=== PATIENT | male | born 1955 | race Caucasian/White ===

== ENCOUNTER 2022-10-17 13:08 | Emergency (ER) | payer OTHER, MEDICAID ==
[~2022-10-17] VITALS: Ht 170.2 cm; Wt 81.8 kg
[2022-10-17 13:24] VITALS: BP 194/79
[2022-10-17 14:02] LABS: Basophils # (auto) 0.1 10 ^3/uL (0-0.2); Basophils % (auto) 0.8 % (0.0-2.0); Eosinophils # (auto) 0.3 10 ^3/uL (0-0.8); Eosinophils % (auto) 3.6 % (0.0-7.0); Hematocrit 34.7 % (41.0-53.0); Hemoglobin 11.6 g/dL (13.5-17.5); Lymphocytes # (auto) 0.8 10 ^3/uL (0.4-5.4); Lymphocytes % (auto) 10.7 % (10.0-50.0); Mean Corpuscular Hemoglobin 27.5 pg (28.0-32.0); Mean Corpuscular Hgb Conc. 33.5 g/dL (32.0-36.0); Mean Corpuscular Volume 82.2 fL (80.0-100.0); Monocytes # (auto) 0.5 10 ^3/uL (0-1.3); Monocytes % (auto) 6.7 % (0.0-12.0); Neutrophils # (auto) 5.9 10 ^3/uL (1.6-8.6); Neutrophils % (auto) 78.2 % (37.0-80.0); Red Blood Cells 4.22 10^6/uL (4.5-5.90); Red Cell Distribution Width 15.5 % (11.8-14.3); White Blood Cell 7.5 10^3/uL (4.4-10.8)
[2022-10-17 14:20] LABS: Albumin 3.9 g/dL (3.4-5.0); BUN/Creatinine Ratio 8.4; Calcium 8.6 mg/dL (8.5-10.1)
[2022-10-17 14:23] LABS: Bilirubin, Total 0.6 mg/dL (0.2-1.0); Total Protein 7.5 g/dL (6.4-8.2)
== END 2022-10-17 15:49 | disposition left against medical advice (07) ==
LOC: ER 13:08
DX: R07.89 Other chest pain (principal); F41.9 Anxiety disorder, unspecified; F17.210 Nicotine dependence, cigarettes, uncomplicated; F12.10 Cannabis abuse, uncomplicated
CPT/HCPCS: 36415; 71046; 80053; 84484; 85025; 93005

== ENCOUNTER 2023-09-06 06:36 | Inpatient (IN) | payer OTHER, MEDICAID ==
[~2023-09-06] VITALS: Ht 170.2 cm; Wt 85.4 kg
[2023-09-06] MEDS ORDERED: cefTRIAXone 1GM/50ML D5W 50 ML IV ONE ×2 (08:30→10:30)
[2023-09-06] MEDS ORDERED: CLINDAMYCIN 600MG IV 50 ML IV ONE (08:30)
[2023-09-06 10:08] LABS: Basophils # (auto) 0.1 10 ^3/uL (0-0.2); Basophils % (auto) 0.5 % (0.0-2.0); Eosinophils # (auto) 0.3 10 ^3/uL (0-0.8); Eosinophils % (auto) 3.1 % (0.0-7.0); Hematocrit 35.2 % (41.0-53.0); Hemoglobin 11.4 g/dL (13.5-17.5); Lymphocytes # (auto) 0.7 10 ^3/uL (0.4-5.4); Lymphocytes % (auto) 6.1 % (10.0-50.0); Mean Corpuscular Hemoglobin 28.7 pg (28.0-32.0); Mean Corpuscular Hgb Conc. 32.4 g/dL (32.0-36.0); Mean Corpuscular Volume 88.7 fL (80.0-100.0); Monocytes # (auto) 0.9 10 ^3/uL (0-1.3); Monocytes % (auto) 8.2 % (0.0-12.0); Neutrophils % (auto) 82.1 % (37.0-80.0); Red Blood Cells 3.97 10^6/uL (4.5-5.90); Red Cell Distribution Width 16.4 % (11.8-14.3)
[2023-09-06 10:09] LABS: Albumin 4.2 g/dL (3.2-4.8); Alkaline Phosphatase 76 U/L (46-116); Anion Gap 10 (5-15); Aspartate Aminotransferase 12 U/L (13-40); BUN/Creatinine Ratio 8.4 (10.0-20.0); Bilirubin, Total 0.3 mg/dL (0.2-1.0); Blood Urea Nitrogen 41 mg/dL (9-23); Calcium 8.1 mg/dL (8.5-10.1); Carbon Dioxide 23 mmol/L (20-30); Chloride 106 mmol/L (98-107); Glucose 103 mg/dL (74-106); Potassium 3.8 mmol/L (3.5-5.1); Sodium 139 mmol/L (136-145); Total Protein 6.8 g/dL (5.7-8.2)
[2023-09-06 10:21] LABS: Alanine Aminotransferase < 9 U/L (7-40)
[2023-09-06] MEDS ORDERED: MEROPENEM 1 GM in SODIUM CHL 0.9% 100 ML IV SCH (14:45)
[2023-09-06] MEDS ORDERED: VANCOMYCIN PER PHARMACY 0 MG IV SCH (14:45)
[2023-09-06] MEDS ORDERED: ONDANSETRON HCL 4 MG/2 ML VIAL IV PRN (14:45)
[2023-09-06] MEDS ORDERED: NITROGLYCERIN 0.4 MG SL TAB SL PRN (14:45)
[2023-09-06] MEDS ORDERED: VANCOMYCIN 1GM/250ML 250 ML IV ONE (14:45)
[2023-09-06] MEDS ORDERED: ACETAMINOPHEN 325 MG TAB PO PRN (14:45)
[2023-09-06] MEDS: MEROPENEM 1 GM in SODIUM CHL 0.9% 100 ML IV SCH (19:52)
[2023-09-06 20:00] VITALS: PULSE 82; RESP 20; O2SAT 94
[2023-09-06] MEDS: ALPRAZolam 0.25 MG TAB PO PRN (20:18)
[2023-09-06] MEDS: cloNIDine HCL 0.1 MG TAB PO PRN (20:19)
[2023-09-06] MEDS: hydrALAZINE HCL 20 MG/ML VL IV PRN (22:39)
[2023-09-06 23:36] VITALS: PULSE 79; RESP 20; O2SAT 93
[2023-09-07] MEDS ORDERED: amLODIPine BESYLATE 5 MG TAB PO ONE
[2023-09-07] MEDS: HYDROcodone-ACET 5/325MG TAB PO PRN (00:35)
[2023-09-07] MEDS: cloNIDine HCL 0.1 MG TAB PO PRN (02:37)
[2023-09-07] MEDS ORDERED: CLON0.3D4 PO (04:39)
[2023-09-07] MEDS ORDERED: HYDR-4297 PO ×2 (04:40→19:32)
[2023-09-07] MEDS: hydrALAZINE HCL 20 MG/ML VL IV PRN (04:45)
[2023-09-07 05:06] LABS: Urine Bacteria NONE SEEN /hpf (None Seen); Urine Blood Negative /uL (Negative); Urine Clarity Clear (Clear); Urine Protein, UAD 2+ (Negative); Urine Specific Gravity 1.012 (1.001-1.035); Urine Urobilinogen Normal (Negative); Urine WBC 1 /hpf (0 - 3)
[2023-09-07 05:09] LABS: Urine Color Straw (Yellow)
[2023-09-07] MEDS ORDERED: hydrALAZINE HCL 25 MG TAB PO SCH (06:00)
[2023-09-07] MEDS: hydrALAZINE HCL 25 MG TAB PO SCH ×3 (06:00→22:00)
[2023-09-07] MEDS ORDERED: cloNIDine HCL 0.1 MG TAB PO ONE (06:00)
[2023-09-07 06:40] LABS: Basophils # (auto) 0.1 10 ^3/uL (0-0.2); Basophils % (auto) 1.1 % (0.0-2.0); Eosinophils # (auto) 0.5 10 ^3/uL (0-0.8); Eosinophils % (auto) 5.7 % (0.0-7.0); Hematocrit 37.1 % (41.0-53.0); Hemoglobin 12.4 g/dL (13.5-17.5); Lymphocytes # (auto) 0.8 10 ^3/uL (0.4-5.4); Mean Corpuscular Hemoglobin 29.2 pg (28.0-32.0); Mean Corpuscular Hgb Conc. 33.4 g/dL (32.0-36.0); Mean Corpuscular Volume 87.5 fL (80.0-100.0); Monocytes # (auto) 0.7 10 ^3/uL (0-1.3); Monocytes % (auto) 7.4 % (0.0-12.0); Neutrophils # (auto) 7.2 10 ^3/uL (1.6-8.6); Neutrophils % (auto) 76.8 % (37.0-80.0); Red Blood Cells 4.24 10^6/uL (4.5-5.90); Red Cell Distribution Width 16.5 % (11.8-14.3); White Blood Cell 9.4 10^3/uL (4.4-10.8)
[2023-09-07] MEDS: MORPHINE SULFATE INJ 2 MG/ml SYRG IV PRN ×3 (07:53→18:37)
[2023-09-07] MEDS: NIFEdipine ER 30 MG TAB PO SCH (09:20)
[2023-09-07] MEDS ORDERED: amLODIPine BESYLATE 5 MG TAB PO SCH (10:00)
[2023-09-07 10:07] LABS: Anion Gap 12 (5-15); BUN/Creatinine Ratio 8.6 (10.0-20.0); Blood Urea Nitrogen 48 mg/dL (9-23); Calcium 8.1 mg/dL (8.7-10.4); Carbon Dioxide 21 mmol/L (20-30); Chloride 107 mmol/L (98-107); Glucose 85 mg/dL (74-106); Sodium 140 mmol/L (136-145)
[2023-09-07] MEDS: MEROPENEM 1 GM in SODIUM CHL 0.9% 100 ML IV SCH (10:09)
[2023-09-07] MEDS ORDERED: diphenhdrAMINE HCL 25 MG CAP PO PRN (11:30)
[2023-09-07] MEDS ORDERED: diphenhdrAMINE HCL 50 MG/1 ML VL IV ONE (14:00)
[2023-09-07] MEDS: cloNIDine HCL 0.1 MG TAB PO SCH ×2 (14:05→22:00)
[2023-09-07] MEDS ORDERED: VANCOMYCIN 500 MG in D5W 5% 100 ML IV ONE (18:00)
[2023-09-07 18:05] VITALS: BP 182/82; PULSE 65; RESP 18; TEMP 97; O2SAT 97
[2023-09-07] MEDS ORDERED: CLON0.2T PO (19:32)
[2023-09-07] MEDS ORDERED: PERCOT PO (19:32)
[2023-09-07] MEDS ORDERED: ALPR0.5T PO (19:32)
[2023-09-07 20:00] VITALS: BP 165/73; PULSE 66; PULSE 69; RESP 17; TEMP 97.9; O2SAT 96
[2023-09-07 22:00] VITALS: BP 165/73; PULSE 66; RESP 17; TEMP 97.9; O2SAT 92
[2023-09-07] MEDS: ALPRAZolam 0.25 MG TAB PO PRN (22:00)
[2023-09-08] VITALS (7 sets, daily range): BP systolic 147–188; BP diastolic 65–78; PULSE 59–76; RESP 18–22; TEMP 97.6–98.3; O2SAT 92–97
[2023-09-08] MEDS: MORPHINE SULFATE INJ 2 MG/ml SYRG IV PRN ×6 (00:33→22:44)
[2023-09-08] MEDS: hydrALAZINE HCL 20 MG/ML VL IV PRN ×2 (00:40→18:35)
[2023-09-08] MEDS: cloNIDine HCL 0.1 MG TAB PO SCH ×3 (05:19→21:59)
[2023-09-08] MEDS: hydrALAZINE HCL 25 MG TAB PO SCH ×3 (05:19→21:58)
[2023-09-08] MEDS: NIFEdipine ER 30 MG TAB PO SCH (08:51)
[2023-09-08] MEDS: ALPRAZolam 0.25 MG TAB PO PRN ×2 (08:51→18:36)
[2023-09-08] MEDS ORDERED: cefTRIAXone 1GM/50ML D5W 50 ML IV ONE (09:45)
[2023-09-08] MEDS: CLINDAMYCIN 600MG IV 50 ML IV SCH ×2 (14:22→21:58)
[2023-09-09] VITALS (8 sets, daily range): BP systolic 154–203; BP diastolic 61–92; PULSE 66–86; RESP 18–22; TEMP 97.7–97.9; O2SAT 92–97
[2023-09-09] MEDS: MORPHINE SULFATE INJ 2 MG/ml SYRG IV PRN ×4 (04:01→20:40)
[2023-09-09] MEDS: hydrALAZINE HCL 20 MG/ML VL IV PRN ×2 (04:45→17:47)
[2023-09-09] MEDS: hydrALAZINE HCL 25 MG TAB PO SCH ×3 (05:36→22:37)
[2023-09-09] MEDS: cloNIDine HCL 0.1 MG TAB PO SCH ×3 (05:37→22:38)
[2023-09-09] MEDS: CLINDAMYCIN 600MG IV 50 ML IV SCH ×3 (06:00→22:00)
[2023-09-09] MEDS ORDERED: SODIUM CHL 0.9% 1000 ML BAG XX ONE (07:00)
[2023-09-09 07:03] LABS: Basophils # (auto) 0.1 10 ^3/uL (0-0.2); Basophils % (auto) 0.8 % (0.0-2.0); Eosinophils # (auto) 0.5 10 ^3/uL (0-0.8); Eosinophils % (auto) 6.3 % (0.0-7.0); Hematocrit 36.5 % (41.0-53.0); Hemoglobin 11.8 g/dL (13.5-17.5); Lymphocytes # (auto) 0.7 10 ^3/uL (0.4-5.4); Lymphocytes % (auto) 8.4 % (10.0-50.0); Mean Corpuscular Hemoglobin 28.4 pg (28.0-32.0); Mean Corpuscular Hgb Conc. 32.4 g/dL (32.0-36.0); Mean Corpuscular Volume 87.9 fL (80.0-100.0); Monocytes # (auto) 0.6 10 ^3/uL (0-1.3); Monocytes % (auto) 7.4 % (0.0-12.0); Neutrophils # (auto) 6.4 10 ^3/uL (1.6-8.6); Neutrophils % (auto) 77.1 % (37.0-80.0); Nucleated Red Blood Cells % 0.1 %; Red Blood Cells 4.15 10^6/uL (4.5-5.90); Red Cell Distribution Width 16.1 % (11.8-14.3); White Blood Cell 8.3 10^3/uL (4.4-10.8)
[2023-09-09 07:18] LABS: Chloride 109 mmol/L (98-107); Potassium 4.1 mmol/L (3.5-5.1); Sodium 140 mmol/L (136-145)
[2023-09-09 07:19] LABS: Anion Gap 12 (5-15); Calcium 7.9 mg/dL (8.5-10.1); Carbon Dioxide 19 mmol/L (20-30)
[2023-09-09 07:24] LABS: BUN/Creatinine Ratio 9.3 (10.0-20.0); Blood Urea Nitrogen 53 mg/dL (9-23); Glucose 83 mg/dL (74-106)
[2023-09-09] MEDS: cefTRIAXone 1GM/50ML D5W 50 ML IV SCH (10:11)
[2023-09-09 10:21] LABS: Hepatitis B Surface Antigen Negative (Negative)
[2023-09-09] MEDS: NIFEdipine ER 30 MG TAB PO SCH (12:40)
[2023-09-09] MEDS: HYDROcodone-ACET 5/325MG TAB PO PRN (12:41)
[2023-09-09] MEDS: cloNIDine HCL 0.1 MG TAB PO PRN (12:43)
[2023-09-09 13:16] LABS: Hepatitis C Antibody Reactive (Negative)
[2023-09-09] MEDS: ALPRAZolam 0.25 MG TAB PO PRN (15:25)
[2023-09-10] MEDS: MORPHINE SULFATE INJ 2 MG/ml SYRG IV PRN ×4 (01:52→21:02)
[2023-09-10 05:00] VITALS: BP 176/75; PULSE 69; RESP 22; TEMP 98.8; O2SAT 94
[2023-09-10 05:52] LABS: Anion Gap 11 (5-15); Carbon Dioxide 19 mmol/L (20-30); Chloride 110 mmol/L (98-107); Potassium 4.6 mmol/L (3.5-5.1); Sodium 140 mmol/L (136-145)
[2023-09-10 05:54] LABS: Calcium 8.2 mg/dL (8.5-10.1)
[2023-09-10 05:58] LABS: BUN/Creatinine Ratio 8.4 (10.0-20.0); Blood Urea Nitrogen 47 mg/dL (9-23); Glucose 78 mg/dL (74-106)
[2023-09-10] MEDS: CLINDAMYCIN 600MG IV 50 ML IV SCH ×3 (06:00→22:00)
[2023-09-10] MEDS: hydrALAZINE HCL 25 MG TAB PO SCH ×3 (06:55→21:03)
[2023-09-10] MEDS: cloNIDine HCL 0.1 MG TAB PO SCH ×3 (06:55→21:03)
[2023-09-10 08:00] VITALS: BP 171/82; PULSE 68; PULSE 70; PULSE 86; RESP 18; TEMP 97.8; O2SAT 96
[2023-09-10] MEDS: cefTRIAXone 1GM/50ML D5W 50 ML IV SCH (08:14)
[2023-09-10 09:00] VITALS: BP 168/74; PULSE 70; RESP 20; TEMP 98.5; O2SAT 92
[2023-09-10] MEDS: NIFEdipine ER 30 MG TAB PO SCH (10:05)
[2023-09-10] MEDS: HYDROcodone-ACET 5/325MG TAB PO PRN (10:47)
[2023-09-10 13:00] VITALS: BP 202/84; PULSE 61; RESP 20; TEMP 97.5; O2SAT 97
[2023-09-10 20:00] VITALS: BP 171/63; PULSE 63; PULSE 64; RESP 19; TEMP 98.4; O2SAT 93
[2023-09-10 22:00] VITALS: BP 171/63; PULSE 64; RESP 19; TEMP 98.4; O2SAT 93
[2023-09-11] MEDS: MORPHINE SULFATE INJ 2 MG/ml SYRG IV PRN ×3 (01:04→11:10)
[2023-09-11 05:00] VITALS: BP 147/76; PULSE 65; RESP 19; TEMP 97.7; O2SAT 96
[2023-09-11] MEDS: CLINDAMYCIN 600MG IV 50 ML IV SCH (06:00)
[2023-09-11] MEDS: hydrALAZINE HCL 25 MG TAB PO SCH ×2 (06:18→14:35)
[2023-09-11] MEDS: cloNIDine HCL 0.1 MG TAB PO SCH ×2 (06:22→14:43)
[2023-09-11 08:00] VITALS: PULSE 63; RESP 18; O2SAT 96
[2023-09-11 09:00] VITALS: BP 155/66; PULSE 67; RESP 17; TEMP 98.1; O2SAT 94
[2023-09-11] MEDS: cefTRIAXone 1GM/50ML D5W 50 ML IV SCH (09:09)
[2023-09-11] MEDS: ALPRAZolam 0.25 MG TAB PO PRN (09:09)
[2023-09-11] MEDS: NIFEdipine ER 30 MG TAB PO SCH (09:11)
[2023-09-11] MEDS ORDERED: AUG875T PO (10:56)
[2023-09-11 12:17] VITALS: BP 149/57; PULSE 57; RESP 17; TEMP 98.5; O2SAT 96
[2023-09-11] MEDS ORDERED: CLINDAMYCIN HCL 150 MG CAP PO SCH (14:00)
== END 2023-09-11 15:45 | disposition home or self-care (01) | DRG 602 ==
LOC: ER 06:36 → TELE 14:39 → TELE-EAST 22:37 → TELE 09-07 01:35 → TELE-EAST 09-07 18:52
PROVIDERS: ADMIT Internal Medicine Geriatric Medicine; ATTEND Internal Medicine
PROC: 5A1D70Z Performance of Urinary Filtration, Intermittent, Less than 6 Hours Per Day (ICD-10-PCS; principal; 2023-09-10)
DX: L03.213 Periorbital cellulitis (principal); N18.6 End stage renal disease; I13.2 Hypertensive heart and chronic kidney disease with heart failure and with stage 5 chronic kidney disease, or end stage renal disease; H05.011 Cellulitis of right orbit; I50.9 Heart failure, unspecified; F17.210 Nicotine dependence, cigarettes, uncomplicated; F41.9 Anxiety disorder, unspecified; L03.211 Cellulitis of face; Z99.2 Dependence on renal dialysis
CPT/HCPCS: 36415; 70480; 80048; 80053; 80202; 81001; 83605; 85025; 86803; 87040; 87077; 87081; 87186; 87205; 87340; 90935; 96365; 96366; 96367; 96379; G0378; J0696; J2405; J3490; J7060

== ENCOUNTER 2024-01-13 04:43 | Inpatient (IN) | payer OTHER, MEDICAID ==
[~2024-01-13] VITALS: Ht 170.2 cm; Wt 83.3 kg
[2024-01-13] VITALS (12 sets, daily range): BP systolic 144–176; BP diastolic 56–111; PULSE 83–100; RESP 13–23; TEMP 97.7–98.9; O2SAT 90–97
[~2024-01-13 04:43] MED LIST: ALPR0.5T PO; AUG875T PO; CLON0.2T PO; CLON0.3D4 PO; HYDR50TA47 PO; PERCOT PO
[2024-01-13 05:16] LABS: Basophils # (auto) 0 10 ^3/uL (0-0.2); Basophils % (auto) 0.2 % (0.0-2.0); Eosinophils # (auto) 0 10 ^3/uL (0-0.8); Eosinophils % (auto) 0.1 % (0.0-7.0); Hematocrit 34.6 % (41.0-53.0); Hemoglobin 11.6 g/dL (13.5-17.5); Lymphocytes # (auto) 0.4 10 ^3/uL (0.4-5.4); Lymphocytes % (auto) 3.8 % (10.0-50.0); Mean Corpuscular Hemoglobin 28.7 pg (28.0-32.0); Mean Corpuscular Hgb Conc. 33.5 g/dL (32.0-36.0); Mean Corpuscular Volume 85.8 fL (80.0-100.0); Monocytes # (auto) 0.3 10 ^3/uL (0-1.3); Monocytes % (auto) 2.7 % (0.0-12.0); Neutrophils # (auto) 10.1 10 ^3/uL (1.6-8.6); Neutrophils % (auto) 93.2 % (37.0-80.0); Nucleated Red Blood Cells % 0.1 %; Red Blood Cells 4.03 10^6/uL (4.5-5.90); Red Cell Distribution Width 15.5 % (11.8-14.3); White Blood Cell 10.9 10^3/uL (4.4-10.8)
[2024-01-13 05:31] LABS: Albumin 4.5 g/dL (3.2-4.8); Alkaline Phosphatase 76 U/L (46-116); Anion Gap 17 (5-15); Aspartate Aminotransferase 22 U/L (13-40); BUN/Creatinine Ratio 5.7 (10.0-20.0); Bilirubin, Total < 0.2 mg/dL (0.2-1.0); Blood Urea Nitrogen 41 mg/dL (9-23); Calcium 8.4 mg/dL (8.5-10.1); Carbon Dioxide 22 mmol/L (20-30); Chloride 96 mmol/L (98-107); Glucose 136 mg/dL (74-106); Potassium 3.2 mmol/L (3.5-5.1); Sodium 135 mmol/L (136-145); Total Protein 8.2 g/dL (5.7-8.2)
[2024-01-13 05:35] LABS: INR 1.02 (0.9-1.15); Partial Thromboplastin Time 28.6 SEC (24.5-34.5); Prothrombin Time 10.7 sec (9.3-11.8)
[2024-01-13 05:36] LABS: Alanine Aminotransferase < 9 U/L (7-40)
[2024-01-13] MEDS: ALBUTEROL SULF 2.5 MG/0.5ML(0.5%) NEB SOLN NEB ONE (07:25)
[2024-01-13] MEDS: ONDANSETRON HCL 4 MG/2 ML VIAL IV ONE (07:58)
[2024-01-13] MEDS: methylPREDNISolone SOD SUCC 125 MG/2 ML VL IV ONE (07:58)
[2024-01-13] MEDS: MORPHINE SULFATE INJ 2 MG/ml SYRG IV ONE (07:59)
[2024-01-13] MEDS: MAGNESIUM SULFATE 1GM/100ML 100 ML IV ONE (08:00)
[2024-01-13] MEDS: ENOXAPARIN SOD 80 MG/0.8ML SYRINGE SC ONE (08:01)
[2024-01-13] MEDS ORDERED: ACETAMINOPHEN 325 MG TAB PO PRN (09:30)
[2024-01-13] MEDS ORDERED: NITROGLYCERIN 0.4 MG SL TAB SL PRN (09:30)
[2024-01-13] MEDS ORDERED: ALBUTEROL SULF 2.5 MG/0.5ML(0.5%) NEB SOLN NEB PRN (09:30)
[2024-01-13] MEDS: NICOTINE 14 MG/24HR TOPICAL PATCH TD SCH (10:00)
[2024-01-13] MEDS: SODIUM CHL 0.9% 1000 ML BAG XX ONE (10:15)
[2024-01-13 10:17] LABS: Triglycerides 60 mg/dL (< 150)
[2024-01-13 10:18] LABS: LDL Cholesterol 87 mg/dL (< 100)
[2024-01-13 10:19] LABS: Cholesterol 140 mg/dL (< 200); HDL Cholesterol 40 mg/dL (40-59)
[2024-01-13 10:34] LABS: % Iron Saturation 15.2 % (20-55)
[2024-01-13] MEDS: IPRATROPIUM BROM 0.5 MG/2.5ML INH SOL NEB SCH (10:50)
[2024-01-13] MEDS: ALBUTEROL SULF 2.5 MG/0.5ML(0.5%) NEB SOLN NEB SCH (10:50)
[2024-01-13] MEDS: cefTRIAXone 1GM/50ML D5W 50 ML IV ONE (11:02)
[2024-01-13] MEDS: ALPRAZolam 0.5 MG TAB PO SCH (11:02)
[2024-01-13] MEDS: NICOTINE 14 MG/24HR TOPICAL PATCH TD ONE (11:03)
[2024-01-13] MEDS: methylPREDNISolone SOD SUCC 40 MG/ML VL IV SCH (11:03)
[2024-01-13 11:27] LABS: Hepatitis B Surface Antigen Negative (Negative)
[2024-01-13 11:35] LABS: Lactic Acid w/Reflex 3.2 mmol/L (0.4-2.0)
[2024-01-13 11:47] LABS: Hepatitis A Ab IgM Negative
[2024-01-13 11:48] LABS: Hepatitis B Core IgM Negative
[2024-01-13 13:34] LABS: Hepatitis C Antibody Reactive (Negative)
[2024-01-13] MEDS: cloNIDine HCL 0.1 MG TAB PO SCH ×2 (14:00→18:00)
[2024-01-13] MEDS: AZITHROMYCIN 500MG/ 250ML 250 ML IV ONE (15:02)
[2024-01-13] MEDS ORDERED: HYDROcodone-ACET 5/325MG TAB PO PRN (16:30)
[2024-01-13] MEDS: MORPHINE SULFATE INJ 2 MG/ml SYRG IV PRN (17:25)
[2024-01-13 21:28] LABS: Urine Amorphous Crystal FEW /hpf (None Seen); Urine Bacteria FEW /hpf (None Seen); Urine Blood TRACE /uL (Negative); Urine Clarity HAZY (Clear); Urine Color Yellow (Yellow); Urine Protein, UAD 3+ (Negative); Urine Specific Gravity 1.017 (1.001-1.035); Urine Sperm PRESENT /hpf (None Seen); Urine Urobilinogen Normal (Negative); Urine WBC 16 /hpf (0 - 3)
[2024-01-13 21:36] LABS: Amphetamine Screen, Urine Pos (NEGATIVE); Barbiturate Scree,Urine Neg (NEGATIVE); Benzodiazephine Screen, Urine Pos (NEGATIVE); Cocaine Screen, Urine Neg (NEGATIVE); Opiate Scree,Urine Neg (NEGATIVE)
[2024-01-13 21:37] LABS: Cannabinoid Screen, Urine Pos (NEGATIVE); Phencyclidine Screen, Urine Neg (NEGATIVE)
[2024-01-13] MEDS: ATORVASTATIN 20 MG TAB PO SCH (22:36)
[2024-01-13] MEDS ORDERED: CLON0.3D4 PO (23:46)
[2024-01-13] MEDS: hydrALAZINE HCL 20 MG/ML VL IV PRN (23:55)
[2024-01-14] VITALS (17 sets, daily range): BP systolic 113–179; BP diastolic 69–79; PULSE 73–98; RESP 16–24; TEMP 97.3–98.6; O2SAT 90–98
[2024-01-14 07:10] LABS: Basophils # (auto) 0.1 10 ^3/uL (0-0.2); Basophils % (auto) 0.2 % (0.0-2.0); Eosinophils # (auto) 0 10 ^3/uL (0-0.8); Hematocrit 35.1 % (41.0-53.0); Lymphocytes # (auto) 0.5 10 ^3/uL (0.4-5.4); Lymphocytes % (auto) 2.4 % (10.0-50.0); Mean Corpuscular Hemoglobin 27.3 pg (28.0-32.0); Mean Corpuscular Hgb Conc. 31.4 g/dL (32.0-36.0); Mean Corpuscular Volume 86.9 fL (80.0-100.0); Monocytes # (auto) 0.7 10 ^3/uL (0-1.3); Monocytes % (auto) 3.2 % (0.0-12.0); Neutrophils # (auto) 21.1 10 ^3/uL (1.6-8.6); Neutrophils % (auto) 94.2 % (37.0-80.0); Red Blood Cells 4.04 10^6/uL (4.5-5.90); Red Cell Distribution Width 15.7 % (11.8-14.3); White Blood Cell 22.4 10^3/uL (4.4-10.8)
[2024-01-14 07:29] LABS: Alanine Aminotransferase 15 U/L (7-40); Albumin 4.2 g/dL (3.2-4.8); Alkaline Phosphatase 71 U/L (46-116); Anion Gap 10 (5-15); Aspartate Aminotransferase 56 U/L (13-40); BUN/Creatinine Ratio 5.1 (10.0-20.0); Blood Urea Nitrogen 32 mg/dL (9-23); Calcium 8.7 mg/dL (8.5-10.1); Carbon Dioxide 27 mmol/L (20-30); Chloride 99 mmol/L (98-107); Glucose 126 mg/dL (74-106); Potassium 4.4 mmol/L (3.5-5.1); Sodium 136 mmol/L (136-145)
[2024-01-14 07:31] LABS: Bilirubin, Total < 0.2 mg/dL (0.2-1.0); Total Protein 7.7 g/dL (5.7-8.2)
[2024-01-14] MEDS: cefTRIAXone 1GM/50ML D5W 50 ML IV SCH (09:18)
[2024-01-14] MEDS: NIFEdipine ER 30 MG TAB PO SCH (09:18)
[2024-01-14] MEDS: AZITHROMYCIN 500MG/ 250ML 250 ML IV SCH (09:19)
[2024-01-14] MEDS: HEPARIN SODIUM (PORCINE) 5000 UNITS/ML 1ML VIAL SC SCH (09:43)
[2024-01-14] MEDS ORDERED: HYDR-4298 PO (09:55)
[2024-01-14] MEDS ORDERED: TAMS0.4C36 PO (09:57)
[2024-01-14] MEDS ORDERED: NIFE1TAB30 PO (09:57)
[2024-01-14] MEDS ORDERED: ENOXAPARIN SOD 100 MG/1 ML SYRINGE SC SCH (10:00)
[2024-01-14] MEDS ORDERED: OXYCODONE W/ ACETAMINOPHEN 5/325MG TABLET PO PRN (10:30)
[2024-01-14] MEDS: SEVELAMER 800 MG TAB PO SCH (17:28)
[2024-01-14] MEDS ORDERED: IPRATROPIUM BROM 0.5 MG/2.5ML INH SOL NEB SCH (18:00)
[2024-01-14 19:02] LABS: Urine Bacteria FEW /hpf (None Seen); Urine Blood 3+ /uL (Negative); Urine Clarity CLOUDY (Clear); Urine Color Yellow (Yellow); Urine Mucus FEW (None Seen); Urine Protein, UAD 3+ (Negative); Urine Specific Gravity 1.018 (1.001-1.035); Urine Sperm PRESENT /hpf (None Seen); Urine Urobilinogen Normal (Negative); Urine WBC 188 /hpf (0 - 3); Urine pH 5.5 (5.0-8.0)
[2024-01-14] MEDS: IPRATROPIUM BROM 0.5 MG/2.5ML INH SOL NEB SCH (19:03)
[2024-01-14] MEDS: ALBUTEROL SULF 2.5 MG/0.5ML(0.5%) NEB SOLN NEB SCH (19:03)
[2024-01-14] MEDS: hydrALAZINE HCL 25 MG TAB PO SCH (22:35)
[2024-01-15] VITALS (13 sets, daily range): BP systolic 141–179; BP diastolic 66–92; PULSE 70–104; RESP 16–20; TEMP 97.8–98.3; O2SAT 91–96
[2024-01-15 06:32] LABS: Chloride 99 mmol/L (98-107); Potassium 4.3 mmol/L (3.5-5.1); Sodium 136 mmol/L (136-145)
[2024-01-15 06:33] LABS: Anion Gap 9 (5-15); Calcium 7.9 mg/dL (8.7-10.4); Carbon Dioxide 28 mmol/L (20-30)
[2024-01-15 06:38] LABS: Glucose 103 mg/dL (74-106)
[2024-01-15 06:39] LABS: Basophils # (auto) 0 10 ^3/uL (0-0.2); Eosinophils # (auto) 0 10 ^3/uL (0-0.8); Hematocrit 34.6 % (41.0-53.0); Hemoglobin 11.2 g/dL (13.5-17.5); Lymphocytes # (auto) 0.6 10 ^3/uL (0.4-5.4); Lymphocytes % (auto) 3.2 % (10.0-50.0); Mean Corpuscular Hemoglobin 27.6 pg (28.0-32.0); Mean Corpuscular Hgb Conc. 32.4 g/dL (32.0-36.0); Mean Corpuscular Volume 85.3 fL (80.0-100.0); Monocytes # (auto) 0.9 10 ^3/uL (0-1.3); Monocytes % (auto) 4.4 % (0.0-12.0); Neutrophils # (auto) 18.3 10 ^3/uL (1.6-8.6); Neutrophils % (auto) 92.4 % (37.0-80.0); Red Blood Cells 4.05 10^6/uL (4.5-5.90); Red Cell Distribution Width 15.8 % (11.8-14.3); White Blood Cell 19.9 10^3/uL (4.4-10.8)
[2024-01-15 06:52] LABS: Blood Urea Nitrogen 60 mg/dL (9-23)
[2024-01-15] MEDS ORDERED: SODIUM CHL 0.9% 1000 ML BAG XX ONE (07:00)
[2024-01-15] MEDS: methylPREDNISolone SOD SUCC 40 MG/ML VL IV SCH (10:29)
[2024-01-15] MEDS: MORPHINE SULFATE INJ 2 MG/ml SYRG IV PRN (10:54)
[2024-01-15] MEDS: cloNIDine HCL 0.1 MG TAB PO PRN (14:48)
[2024-01-15] MEDS ORDERED: DOXY-448 PO (16:54)
== END 2024-01-15 20:50 | disposition hospice, inpatient (51) | DRG 871 ==
LOC: EDBD 04:43 → ER 04:43 → TELE 09:29 → TELE-WESTW 21:48 → TELE-CENTR 01-14 04:10
PROVIDERS: ADMIT Nurse Practitioner Family; ATTEND Nurse Practitioner Acute Care
PROC: 5A1D70Z Performance of Urinary Filtration, Intermittent, Less than 6 Hours Per Day (ICD-10-PCS; principal; 2024-01-13)
PROC: 5A1D70Z Performance of Urinary Filtration, Intermittent, Less than 6 Hours Per Day (ICD-10-PCS; 2024-01-15)
DX: A41.9 Sepsis, unspecified organism (principal); I21.A1 Myocardial infarction type 2; J15.69 Pneumonia due to other Gram-negative bacteria; N18.6 End stage renal disease; J96.21 Acute and chronic respiratory failure with hypoxia; J15.9 Unspecified bacterial pneumonia; J44.1 Chronic obstructive pulmonary disease with (acute) exacerbation; J44.0 Chronic obstructive pulmonary disease with (acute) lower respiratory infection; I13.2 Hypertensive heart and chronic kidney disease with heart failure and with stage 5 chronic kidney disease, or end stage renal disease; I50.40 Unspecified combined systolic (congestive) and diastolic (congestive) heart failure; F12.10 Cannabis abuse, uncomplicated; D63.8 Anemia in other chronic diseases classified elsewhere; F41.9 Anxiety disorder, unspecified; F17.210 Nicotine dependence, cigarettes, uncomplicated; E87.6 Hypokalemia; N40.0 Benign prostatic hyperplasia without lower urinary tract symptoms; Z99.2 Dependence on renal dialysis; Z99.81 Dependence on supplemental oxygen; Z83.3 Family history of diabetes mellitus; Z71.6 Tobacco abuse counseling
CPT/HCPCS: 36415; 71045; 80048; 80053; 80061; 80074; 80307; 81001; 82728; 83036; 83540; 83550; 83605; 83735; 83880; 84100; 84443; 84484; 85025; 85610; 85730; 87040; 87086; 90935; 93005; 93306; 94640; 94644; 99291; G0378; J2405

== ENCOUNTER 2024-09-24 05:07 | Emergency (ER) | payer OTHER, MEDICAID ==
[~2024-09-24] VITALS: Ht 170.2 cm; Wt 81.8 kg
[~2024-09-24 05:07] MED LIST changes: -AUG875T PO; -CLON0.2T PO; +DOXY100C79 PO; -HYDR50TA47 PO; +NIFE1TAB30 PO; +SEVE800T8 PO; +TAMS0.4C39 PO
[2024-09-24] MEDS: cloNIDine HCL 0.1 MG TAB PO ONE (06:00)
--- NOTE | 2024-09-24 06:02 | PRN ---
Misceleneous Note Note Note 69-year-old male who presents with hypertension. He has a history of end-stage renal disease on dialysis. Rapid medical screening exam performed. Patient in no acute distress. Blood pressure insurance to 225/93. Antihypertensive ordered. Will sign out to oncoming provider for full evaluation. BONG WILLIS MD Sep 24, 2024 06:02
[2024-09-24 06:14] LABS: Basophils # (auto) 0.1 10 ^3/uL (0-0.2); Basophils % (auto) 0.6 % (0.0-2.0); Eosinophils # (auto) 0.3 10 ^3/uL (0-0.8); Eosinophils % (auto) 2.9 % (0.0-7.0); Hematocrit 29.8 % (41.0-53.0); Hemoglobin 9.7 g/dL (13.5-17.5); Lymphocytes # (auto) 0.3 10 ^3/uL (0.4-5.4); Lymphocytes % (auto) 3.4 % (10.0-50.0); Mean Corpuscular Hemoglobin 29.6 pg (28.0-32.0); Mean Corpuscular Hgb Conc. 32.6 g/dL (32.0-36.0); Monocytes # (auto) 0.6 10 ^3/uL (0-1.3); Monocytes % (auto) 6.3 % (0.0-12.0); Neutrophils # (auto) 8.7 10 ^3/uL (1.6-8.6); Neutrophils % (auto) 86.8 % (37.0-80.0); Nucleated Red Blood Cells % 0.1 %; Platelet Count (auto) 235 10^3/uL (140-450); Red Blood Cells 3.27 10^6/uL (4.5-5.90); Red Cell Distribution Width 15.4 % (11.8-14.3); White Blood Cell 10.1 10^3/uL (4.4-10.8)
--- NOTE | 2024-09-24 06:19 | DVH ---
CHEST RADIOGRAPH Indication: CP Technique: Single frontal view of the chest was obtained Comparison: XY CHEST PORTABLE on DOS: 01/15/24 FINDINGS: Lines and Tubes: None Lungs: Bilateral interstitial prominence. No focal consolidation. Pleura: No effusion. No pneumothorax. Cardiomediastinal contours: Cardiomegaly. Bones: No acute osseous abnormality. IMPRESSION: 1. Pulmonary vascular congestion.
[2024-09-24 06:31] LABS: INR 1.01 (0.9-1.15); Partial Thromboplastin Time 34.8 SEC (24.5-34.5); Prothrombin Time 10.7 sec (9.3-11.8)
[2024-09-24 06:32] LABS: Albumin 4.1 g/dL (3.2-4.8); Alkaline Phosphatase 79 U/L (46-116); Anion Gap 16 (5-15); Aspartate Aminotransferase 18 U/L (13-40); BUN/Creatinine Ratio 5.9 (10.0-20.0); Calcium 8.9 mg/dL (8.7-10.4); Chloride 106 mmol/L (98-107); Potassium 3.7 mmol/L (3.5-5.1); Sodium 139 mmol/L (136-145)
[2024-09-24 06:33] LABS: Total Protein 6.7 g/dL (5.7-8.2)
[2024-09-24 06:34] LABS: Alanine Aminotransferase < 9 U/L (7-40); Bilirubin, Total < 0.2 mg/dL (0.2-1.0); Blood Urea Nitrogen 53 mg/dL (9-23); Carbon Dioxide 17 mmol/L (20-31); Glucose 114 mg/dL (74-106)
--- NOTE | 2024-09-24 06:39 | ED.PDOC ---
SOB-HPI HPI Comments 69 year old male presents to the ED with chief complaint of SOB. Patient reports that he has been experiencing SOB with associated chest pain since last night. Patient relays that he missed his dialysis yesterday, which he normally gets on Mondays, Wednesdays, and Fridays. Patient relays that he is on home O2 at this time. Patient's BP in triage was noted to be 225/93. Patient denies any dizziness, headache, N/V/D, fever, or chills. Chief Complaint: Chest Pain Time Seen by MD: 06:37 Primary Care Provider: NEGAR Saini notes: Nurses Notes, Medications, Allergies Information Source: Patient Mode of Arrival: Ambulatory Severity: Moderate Timing: Hours Duration: Since onset Context: At Rest, With Light Exertion PE Risk Factors: None History of: None Prehospital treatment: None Modifying Factors: Nothing Associated Signs and Symptoms: Chest Pain Quality: Tightness Radiation: No Radiation Location: Substernal Past Medical History PAST MEDICAL HISTORY: CHF, ESRD, HTN, [place] Surgical History: Hernia Repair Surgical History (Other): Rt index finger amputation Family History Family History: Reviewed,noncontributory to illness Social History Smoker: Cigarettes Alcohol: Denies ETOH Use Drugs: Marijuana Lives In: Home Constitutional: denies: chills, diaphoresis, fatigue, fever, malaise, sweats, weakness, others EENTM: denies: blurred vision, double vision, ear bleeding, ear discharge, ear drainage, ear pain, ear ringing, eye pain, eye redness, hearing loss, mouth pain, mouth swelling, nasal discharge, nose bleeding, nose congestion, nose pain, photophobia, tearing, throat pain, throat swelling, voice changes, others Respiratory: reports: shortness of breath; denies: cough, hemoptysis, orthopnea, SOB at rest, SOB with excertion, stridor, wheezing, others Cardiovascular: reports: chest pain; denies: dizzy spells, diaphoresis, Dyspnea on exertion, edema, irregular heart beat, left arm pain, lightheadedness, palpitations, PND, syncope, others Gastrointestinal: denies: abdomen distended, abdominal pain, blood streaked bowels, constipated, diarrhea, dysphagia, difficulty swallowing, hematemesis, melena, nausea, poor appetite, poor fluid intake, rectal bleeding, rectal pain, vomiting, others Genitourinary: denies: burning, dysuria, flank pain, frequency, hematuria, incontinence, penile discharge, penile sore, pain, testicle pain, testicle swelling, urgency, others Neurological: denies: dizziness, fainting, headache, left sided numbness, left sided weakness, numbness, paresthesia, pre-existing deficit, right sided numbness, right sided weakness, seizure, speech problems, tingling, tremors, weakness, others Musculoskeletal: denies: back pain, gout, joint pain, joint swelling, muscle pain, muscle stiffness, neck pain, others Integumetry: denies: bruises, change in color, change in hair/nails, dryness, laceration, lesions, lumps, rash, wounds, others Allergic/Immunocompromised: denies: Difficulty Healing, Frequent Infections, Hives, Itching, others Hematologic/Lymphatic: denies: anemia, blood clots, easy bleeding, easy bruising, swollen glands, others Endocrine: denies: excessive hunger, excessive sweating, excessive thirst, excessive urination, flushing, intolerance to cold, intolerance to heat, unexplained weight gain, unexplained weight loss, others Psychiatric: denies: anxiety, bipolar disorder, depression, hopeless, panic disorder, schizophrenia, sleepless, suicidal, others All Other Systems: Reviewed and Negative Physical Exam General Appearance: Moderate Distress, Normal HEENT: Normal ENT Inspection, PERRL/EOMI Neck: Full Range of Motion, Non-Tender, Normal, Normal Inspection Respiratory: Accessory Muscle Use, Chest Non-Tender, Respiratory Distress, Other (Coarse breath sounds) Cardiovascular: No Edema, No JVD, No Murmur, No Gallop, Normal Peripheral Pulses, Regular Rate/Rhythm Breast Exam: Deferred Gastrointestinal: No Organomegaly, Non Tender, No Pulsatile Mass, Normal Bowel Sounds, Soft Genitalia: Deferred Pelvic: Deferred Rectal: Deferred Extremities: No calf tenderness, Normal capillary refill, Normal inspection, Normal range of motion, Non-tender, Pedal edema Musculoskeletal : Apperance: Normal Neurologic: Alert, landscape specialist II-XII nml as Tested, No Motor Deficits, Normal Affect, Normal Mood, No Sensory Deficits Cerebellar Function: NOT DONE Reflexes: NOT DONE Skin: Dry, Normal Color, Warm Peripheral Pulses: 3+ Radial (R), 3+ Radial (L) Lymphatic: No Adenopathy Was a procedure done? Was a procedure done?: No Differential Dx Differential Diagnosis: Anxiety, Asthma, Bronchitis, CHF, COPD X-Ray, Labs, Meds, VS Vital Signs Date Time Temp Pulse Resp B/P (MAP) Pulse Ox O2 Delivery O2 Flow Rate FiO2 09/24/24 06:00 225/93 09/24/24 05:11 86 09/24/24 05:10 98.7 82 22 225/93 (137) 94 Lab Test 09/24/24 05:19 Range/Units White Blood Count 10.1 4.4-10.8 10^3/uL Red Blood Count 3.27 L 4.5-5.90 10^6/uL Hemoglobin 9.7 L 13.5-17.5 g/dL Hematocrit 29.8 L 41.0-53.0 % Mean Corpuscular Volume 91.0 80.0-100.0 fL Mean Corpuscular Hemoglobin 29.6 28.0-32.0 pg Mean Corpuscular Hemoglobin Concent 32.6 32.0-36.0 g/dL Red Cell Distribution Width 15.4 H 11.8-14.3 % Platelet Count 235 140-450 10^3/uL Mean Platelet Volume 9.0 6.9-10.8 fL Neutrophils (%) (Auto) 86.8 H 37.0-80.0 % Lymphocytes (%) (Auto) 3.4 L 10.0-50.0 % Monocytes (%) (Auto) 6.3 0.0-12.0 % Eosinophils (%) (Auto) 2.9 0.0-7.0 % Basophils (%) (Auto) 0.6 0.0-2.0 % Neutrophils # (Auto) 8.7 H 1.6-8.6 10 ^3/uL Lymphocytes # (Auto) 0.3 L 0.4-5.4 10 ^3/uL Monocytes # (Auto) 0.6 0-1.3 10 ^3/uL Eosinophils # (Auto) 0.3 0-0.8 10 ^3/uL Basophils # (Auto) 0.1 0-0.2 10 ^3/uL Nucleated Red Blood Cells 0.1 % Prothrombin Time Pending Prothrombin Time INR Pending Activated Partial Thromboplast Time Pending Sodium Level 139 136-145 mmol/L Potassium Level 3.7 3.5-5.1 mmol/L Chloride Level 106 98-107 mmol/L Carbon Dioxide Level 17 L 20-31 mmol/L Anion Gap 16 H 5-15 Blood Urea Nitrogen 53 H 9-23 mg/dL Creatinine 9.02 H 0.700-1.30 mg/dL Glomerular Filtration Rate Calc 6 >90 mL/min BUN/Creatinine Ratio 5.9 L 10.0-20.0 Serum Glucose 114 H 74-106 mg/dL Calcium Level 8.9 8.7-10.4 mg/dL Total Bilirubin < 0.2 L 0.2-1.0 mg/dL Aspartate Amino Transferase (AST) 18 13-40 U/L Alanine Aminotransferase (ALT) < 9 7-40 U/L Alkaline Phosphatase 79 46-116 U/L Troponin I High Sensitivity 134 *H </=54 ng/L B-Type Natriuretic Peptide 3518.44 0-100 pg/mL Total Protein 6.7 5.7-8.2 g/dL Albumin 4.1 3.2-4.8 g/dL Current Medications Medications (Trade) Dose Ordered Sig/Miguel Route Start Time Stop Time Status Last Admin Clonidine HCl (Catapres Tablet) 0.3 mg ONCE ONCE PO 09/24/24 06:00 09/24/24 06:01 DC 09/24/24 06:00 Patient alert. Complaining of shortness a breath. Chest x-ray reviewed shows congestion. Placed on oxygen. Blood pressure elevated. Was given clonidine. Was given labetalol. Acidotic. Nephrology consultation. Explained to the patient. Continue cardiac monitoring. EKG reviewed does not show any acute changes. Cardiac marker elevated. Was given Lovenox. BNP elevated. Images Reviewed?: Images reviewed and evaluated by me Time of 1ST Reevaluation: 07:37 Reevaluation 1ST: Unchanged Patient Education/Counseling: Diagnosis, Treatment Family Education/Counseling: No Family Present Departure 1 Departure Time of Disposition: 06:43 Impression: Primary Impression: CHF (congestive heart failure) Qualified Codes: I50.41 - Acute combined systolic (congestive) and diastolic (congestive) heart failure Additional Impressions: Chronic kidney disease on chronic dialysis Acute respiratory distress NSTEMI (non-ST elevated myocardial infarction) Disposition: ADMITTED INPATIENT Admit to: Med Surg Condition: Guarded Critical Care Note Critical Care Time?: Yes (45 min-critical care time only) Stability Stability form required: No Heart Score Heart Score: Heart Score Response (Comments) Value History Moderate Suspicious 1 EKG Normal 0 Age >65 2 Risk Factors >3 or Hx ASHD 2 Troponin >3 x's Normal limit 2 Total 7 I personally scribed for URSZULA PANDA MD ([email or web address]) on 09/24/24 at 06:39. Electronically submitted by Satish Jurado ([email or web address]). I personally scribed for URSZULA PANDA MD ([email or web address]) on 09/24/24 at 06:55. Electronically submitted by Satish Jurado ([email or web address]). URSZULA PANDA MD Sep 24, 2024 06:39
[2024-09-24] MEDS: ENOXAPARIN SOD 80 MG/0.8ML SYRINGE SC ONE (07:51)
[2024-09-24 07:56] VITALS: BP 149/78; PULSE 73; RESP 16; TEMP 97.9; O2SAT 99
--- NOTE | 2024-09-25 12:45 | ECG ---
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
[2024-10-06] MEDS ORDERED: HYDR100T10 PO (09:55)
[2024-10-12] MEDS ORDERED: ALPR1TAB7 PO (10:49)
== END 2024-09-24 11:04 | disposition left against medical advice (07) ==
LOC: ER 05:07
DX: I13.2 Hypertensive heart and chronic kidney disease with heart failure and with stage 5 chronic kidney disease, or end stage renal disease (principal); I50.9 Heart failure, unspecified; N18.6 End stage renal disease; I21.4 Non-ST elevation (NSTEMI) myocardial infarction; F17.210 Nicotine dependence, cigarettes, uncomplicated; R06.03 Acute respiratory distress; Z98.890 Other specified postprocedural states; Z99.2 Dependence on renal dialysis
CPT/HCPCS: 36415; 71045; 80053; 83880; 84484; 85025; 85610; 85730; 93005; 96372; 99291; J1650

== ENCOUNTER 2024-10-26 06:27 | Inpatient (IN) | payer OTHER, MEDICAID ==
[~2024-10-26] VITALS: Ht 170.2 cm; Wt 80.2 kg
[~2024-10-26 06:27] MED LIST changes: +ALPR1TAB7 PO; +HYDR100T10 PO
--- NOTE | 2024-10-26 07:29 | ED.PDOC ---
SOB-HPI HPI Comments 69 Y M HIAM with PMHX of COPD, NM, CHF, ESRD presents to the ED with CC of SOB. Per EMS, patient was at [facility] when he began to experience SOB with associated symptoms of left sided facial numbness. Patient, was unable to complete dialysis; per EMS [facility] staff relays that patient will frequently refuse treatment and has not received dialysis since 10/20/24. Patient smokes cigarettes; denies illicit drug use, or ETOH consumption Chief Complaint: Chest Pain Time Seen by MD: 06:50 Primary Care Provider: NEGAR Saini notes: Nurses Notes, Medications Information Source: Patient, Emergency Med Personnel Mode of Arrival: EMS Severity: Moderate Timing: Hours Duration: Since onset Context: At Rest PE Risk Factors: None History of: COPD Prehospital treatment: None Modifying Factors: Nothing Associated Signs and Symptoms: None Past Medical History PAST MEDICAL HISTORY: CHF, ESRD, HTN, [place] Surgical History: Hernia Repair Family History Family History: Reviewed,noncontributory to illness Social History Smoker: Cigarettes Alcohol: Denies ETOH Use Drugs: Marijuana Lives In: Home Constitutional: denies: chills, diaphoresis, fatigue, fever, malaise, sweats, weakness, others EENTM: denies: blurred vision, double vision, ear bleeding, ear discharge, ear drainage, ear pain, ear ringing, eye pain, eye redness, hearing loss, mouth pain, mouth swelling, nasal discharge, nose bleeding, nose congestion, nose pain, photophobia, tearing, throat pain, throat swelling, voice changes, others Respiratory: reports: SOB at rest, shortness of breath; denies: cough, hemoptysis, orthopnea, SOB with excertion, stridor, wheezing, others Cardiovascular: denies: chest pain, dizzy spells, diaphoresis, Dyspnea on exertion, edema, irregular heart beat, left arm pain, lightheadedness, palpitations, PND, syncope, others Gastrointestinal: denies: abdomen distended, abdominal pain, blood streaked bowels, constipated, diarrhea, dysphagia, difficulty swallowing, hematemesis, melena, nausea, poor appetite, poor fluid intake, rectal bleeding, rectal pain, vomiting, others Genitourinary: denies: burning, dysuria, flank pain, frequency, hematuria, incontinence, penile discharge, penile sore, pain, testicle pain, testicle swelling, urgency, others Neurological: denies: dizziness, fainting, headache, left sided numbness, left sided weakness, numbness, paresthesia, pre-existing deficit, right sided numbness, right sided weakness, seizure, speech problems, tingling, tremors, weakness, others Musculoskeletal: denies: back pain, gout, joint pain, joint swelling, muscle pain, muscle stiffness, neck pain, others Integumetry: denies: bruises, change in color, change in hair/nails, dryness, laceration, lesions, lumps, rash, wounds, others Allergic/Immunocompromised: denies: Difficulty Healing, Frequent Infections, Hives, Itching, others Hematologic/Lymphatic: denies: anemia, blood clots, easy bleeding, easy bruising, swollen glands, others Endocrine: denies: excessive hunger, excessive sweating, excessive thirst, excessive urination, flushing, intolerance to cold, intolerance to heat, unexplained weight gain, unexplained weight loss, others Psychiatric: denies: anxiety, bipolar disorder, depression, hopeless, panic disorder, schizophrenia, sleepless, suicidal, others All Other Systems: Reviewed and Negative Physical Exam General Appearance: Moderate Distress, Normal HEENT: Normal ENT Inspection, Pharynx Normal, TMs Normal Neck: Full Range of Motion, Non-Tender, Normal, Normal Inspection Respiratory: Chest Non-Tender, No Accessory Muscle Use, No Respiratory Distress, Other (Coarse breath sounds) Cardiovascular: No Edema, No JVD, No Murmur, No Gallop, Normal Peripheral Pulses, Regular Rate/Rhythm Breast Exam: Deferred Gastrointestinal: No Organomegaly, Non Tender, No Pulsatile Mass, Normal Bowel Sounds, Soft Genitalia: Deferred Pelvic: Deferred Rectal: Deferred Extremities: No calf tenderness, Normal capillary refill, Normal range of rivas on, Non-tender, Pedal edema Musculoskeletal : Apperance: Normal Neurologic: Alert, filling operator II-XII nml as Tested, No Motor Deficits, Normal Affect, Normal Mood, No Sensory Deficits Cerebellar Function: NOT DONE Reflexes: NOT DONE Skin: Dry, Normal Color, Warm Lymphatic: No Adenopathy Was a procedure done? Was a procedure done?: No Differential Dx Differential Diagnosis: Anxiety, Asthma, Bronchitis, CHF, COPD, Pharyngitis, URI X-Ray, Labs, Meds, VS Vital Signs Date Time Temp Pulse Resp B/P (MAP) Pulse Ox O2 Delivery O2 Flow Rate FiO2 10/26/24 06:40 97.8 81 22 189/82 (117) 98 10/26/24 06:28 79 Lab Test 10/26/24 07:06 Range/Units White Blood Count 6.6 4.4-10.8 10^3/uL Red Blood Count 2.80 L 4.5-5.90 10^6/uL Hemoglobin 8.1 L 13.5-17.5 g/dL Hematocrit 24.5 L 41.0-53.0 % Mean Corpuscular Volume 87.6 80.0-100.0 fL Mean Corpuscular Hemoglobin 28.8 28.0-32.0 pg Mean Corpuscular Hemoglobin Concent 32.9 32.0-36.0 g/dL Red Cell Distribution Width 15.0 H 11.8-14.3 % Platelet Count 228 140-450 10^3/uL Mean Platelet Volume 9.2 6.9-10.8 fL Neutrophils (%) (Auto) 83.7 H 37.0-80.0 % Lymphocytes (%) (Auto) 7.5 L 10.0-50.0 % Monocytes (%) (Auto) 6.1 0.0-12.0 % Eosinophils (%) (Auto) 2.0 0.0-7.0 % Basophils (%) (Auto) 0.7 0.0-2.0 % Neutrophils # (Auto) 5.5 1.6-8.6 10 ^3/uL Lymphocytes # (Auto) 0.5 0.4-5.4 10 ^3/uL Monocytes # (Auto) 0.4 0-1.3 10 ^3/uL Eosinophils # (Auto) 0.1 0-0.8 10 ^3/uL Basophils # (Auto) 0 0-0.2 10 ^3/uL Nucleated Red Blood Cells 0.0 % Sodium Level 140 136-145 mmol/L Potassium Level 4.2 3.5-5.1 mmol/L Chloride Level 108 H 98-107 mmol/L Carbon Dioxide Level 18 L 20-31 mmol/L Anion Gap 14 5-15 Blood Urea Nitrogen 70 H 9-23 mg/dL Creatinine 9.30 H 0.700-1.30 mg/dL Glomerular Filtration Rate Calc 6 >90 mL/min BUN/Creatinine Ratio 7.5 L 10.0-20.0 Serum Glucose 111 H 74-106 mg/dL Calcium Level 9.0 8.7-10.4 mg/dL Troponin I High Sensitivity 116 *H </=54 ng/L B-Type Natriuretic Peptide 3094.99 0-100 pg/mL [facility] [id number] [facility] [address] Ph: [phone] DIAGNOSTIC IMAGING Diagnostic Imaging Report : [id number] Signed PATIENT: MELISSA MATHEWS RAYACCT: [id number] UNIT: [id number] : 1955 LOC: ER ROOM / BED: / AGE / SEX: 69 / M ADM STATUS: REG ER SERVICE 3 ORDERING PHYSICIAN: URSZULA PANDA MD PROCEDURE(s): CXRP - CHEST PORTABLE REASON: sob ORDER NUMBER(s): [id number], ACCESSION NUMBER(s): [id number] CHEST RADIOGRAPH Indication: sob Technique: Single frontal view of the chest was obtained Comparison: XY CHEST PORTABLE on DOS: 09/24/24 FINDINGS: Lines and Tubes: None Lungs: There is bilateral interstitial prominence. No focal consolidation. Pleura: No effusion. No pneumothorax. Cardiomediastinal contours: Stable. Bones: No acute osseous abnormality. IMPRESSION: 1. Stable pulmonary vascular congestion. ATED BY: MANDA MENA MD DICTATED DATE/TIME: 10/26/24738 SIGNED BY: MANDA MENA MD SIGNED DATE/TIME: 10/26/24738 CC: Patient alert. Brought by paramedics from dialysis center. Does not take care himself. Vitals stable. No tongue swelling. No allergic reaction. Fistula was bleeding at the time of dialysis. He is not getting his dialysis regularly. Reviewed his previous visit. EKG is reviewed does show changes. Explained to the patient. Continue cardiac monitoring. Time of 1ST Reevaluation: 07:20 Reevaluation 1ST: Unchanged Patient Education/Counseling: Diagnosis, Treatment Family Education/Counseling: No Family Present Departure 1 Departure Time of Disposition: 07:56 Impression: Primary Impression: CHF (congestive heart failure) Qualified Codes: I50.43 - Acute on chronic combined systolic (congestive) and diastolic (congestive) heart failure Additional Impressions: COPD exacerbation Chronic kidney disease on chronic dialysis Disposition: ADMITTED INPATIENT Admit to: Med Surg Condition: Guarded Critical Care Note Critical Care Time?: Yes (45 min-critical care time only) Stability Stability form required: No Heart Score Heart Score: Heart Score Response (Comments) Value History Slightly Suspicious 0 EKG Normal 0 Age >65 2 Risk Factors >3 or Hx ASHD 2 Troponin Normal limit 0 Total 4 I personally scribed for URSZULA PANDA MD ([email or web address]) on 10/26/24 at 07:29. Electronically submitted by Cecy Bhat ([email or web address]). I personally scribed for URSZULA PANDA MD ([email or web address]) on 10/26/24 at 08:14. Electronically submitted by Cecy Bhat ([email or web address]). URSZULA PANDA MD Oct 26, 2024 07:29
[2024-10-26 07:36] LABS: Basophils # (auto) 0 10 ^3/uL (0-0.2); Basophils % (auto) 0.7 % (0.0-2.0); Eosinophils # (auto) 0.1 10 ^3/uL (0-0.8); Hematocrit 24.5 % (41.0-53.0); Hemoglobin 8.1 g/dL (13.5-17.5); Lymphocytes # (auto) 0.5 10 ^3/uL (0.4-5.4); Lymphocytes % (auto) 7.5 % (10.0-50.0); Mean Corpuscular Hemoglobin 28.8 pg (28.0-32.0); Mean Corpuscular Hgb Conc. 32.9 g/dL (32.0-36.0); Mean Corpuscular Volume 87.6 fL (80.0-100.0); Monocytes # (auto) 0.4 10 ^3/uL (0-1.3); Monocytes % (auto) 6.1 % (0.0-12.0); Neutrophils # (auto) 5.5 10 ^3/uL (1.6-8.6); Neutrophils % (auto) 83.7 % (37.0-80.0); Platelet Count (auto) 228 10^3/uL (140-450); White Blood Cell 6.6 10^3/uL (4.4-10.8)
--- NOTE | 2024-10-26 07:41 | DVH ---
CHEST RADIOGRAPH Indication: sob Technique: Single frontal view of the chest was obtained Comparison: XY CHEST PORTABLE on DOS: 09/24/24 FINDINGS: Lines and Tubes: None Lungs: There is bilateral interstitial prominence. No focal consolidation. Pleura: No effusion. No pneumothorax. Cardiomediastinal contours: Stable. Bones: No acute osseous abnormality. IMPRESSION: 1. Stable pulmonary vascular congestion.
[2024-10-26 07:48] LABS: Anion Gap 14 (5-15); Potassium 4.2 mmol/L (3.5-5.1); Sodium 140 mmol/L (136-145)
--- NOTE | 2024-10-26 07:49 | ECG ---
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
[2024-10-26 07:53] LABS: Carbon Dioxide 18 mmol/L (20-31); Chloride 108 mmol/L (98-107)
[2024-10-26 07:54] LABS: BUN/Creatinine Ratio 7.5 (10.0-20.0)
[2024-10-26 08:00] LABS: Blood Urea Nitrogen 70 mg/dL (9-23); Glucose 111 mg/dL (74-106)
[2024-10-26] MEDS ORDERED: ENOXAPARIN SOD 80 MG/0.8ML SYRINGE SC ONE (08:15)
[2024-10-26] MEDS ORDERED: ACETAMINOPHEN 325 MG TAB PO PRN (08:45)
[2024-10-26] MEDS ORDERED: ONDANSETRON HCL 4 MG/2 ML VIAL IV PRN (08:45)
[2024-10-26 10:09] VITALS: PULSE 81; RESP 19; O2SAT 95
[2024-10-26] MEDS: B-COMPLEX W/ C & FOLIC ACID(NEPHROVITE TAB) PO SCH (10:33)
[2024-10-26] MEDS: amLODIPine BESYLATE 5 MG TAB PO SCH (10:33)
[2024-10-26] MEDS: ASPirin 81 mg TAB PO SCH (10:34)
[2024-10-26] MEDS: CARVEDILOL 3.125 MG TAB PO SCH (10:35)
[2024-10-26] MEDS: FAMOTIDINE (10MG/ML) 2ML VL IV SCH (10:36)
[2024-10-26] MEDS: HEPARIN SODIUM (PORCINE) 5000 UNITS/ML 1ML VIAL SC SCH (10:47)
[2024-10-26] MEDS: SEVELAMER 800 MG TAB PO SCH (11:54)
--- NOTE | 2024-10-26 11:54 | DVHHP2 ---
History of Present Illness Reason for Visit: Chest pain History of Present Illness The patient is a 69-year-old male with past medical history of end-stage renal disease on hemodialysis, CHF, COPD hypertension, and MN who presented to [facility] ED with complaint chest pain patient reports symptoms progressively get worse with shortness of breaths, left-sided facial numbness during dialysis session at [facility]. Patient was unable to complete dialysis session due to the above symptoms. Patient was seen and evaluated in the ED, laboratory data shows WBC 6.6, hemoglobin 8.1, hematocrit 24.5, platelets 228, sodium 140, potassium 4.2, BUN 70, creatinine 9.30, GFR 6, glucose 111, troponin 116, BNP 3094.99, blood pressure 189/82 trending down 163/65, heart rate 82, temperature 97.8 F, O2 saturation 98% on oxygen. Chest x-ray revealing stable pulmonary vascular congestion. Please see medication orders section in the computer. On my assessment, patient denied chest pain at this moment, no headache, no dizziness, no nausea, no vomiting, fever, no chills. Patient was admitted for further evaluation and medical management. Past Medical History CHF, ESRD, COPD, HTN, MN Past Surgical History Hernia Repair Family History Reviewed, noncontributory to the management of this case. Past Social History Patient lives at home, smokes cigarettes, denies alcohol use uses marijuana. Review of Systems Constitutional: Yes: Weakness; No: Fever, Chills, Sweats, Malaise, Other Eyes: No: Pain, Vision change, Conjunctivae inflammation, Eyelid inflammation, Other, Redness ENT: No: Ear pain, Ear discharge, Nose pain, Nose discharge, Nose congestion, Mouth pain, Mouth swelling, Throat pain, Throat swelling, Other Respiratory: Shortness of breath, Other (SOB at rest); No: Cough, Dry, SOB with excertion, Wheezing, Hemoptysis, Pleuritic Pain, Sputum, Wheezing Cardiovascular: Chest Pain; No: Palpitations, Orthopnea, Paroxysmal Noc. Dyspnea, Edema, Lt Headedness, Other Gastrointestinal: No: Nausea, Vomiting, Abdominal Pain, Diarrhea, Constipation, Melena, Hematochezia, Other Genitourinary: No Dysuria, No Frequency, No Incontinence, No Hematuria, No Retention, No Other Musculoskeletal: No: other, neck pain, shoulder pain, arm pain, back pain, hand pain, leg pain, foot pain Skin: No: Rash, Lesions, Jaundice, Bruising, Other Neurological: No: Weakness, Numbness, Incoordination, Change in speech, Confusion, Seizures, Other Allergies: Coded Allergies: NO KNOWN ALLERGIES (Unverified , 10/17/22) Medications Current Medications Medications Dose Ordered Sig/Miguel Route Start Time Stop Time Status Last Admin Dose Admin Sevelamer HCl 800 mg TIDWM PO 10/26/24 12:00 Multivit/Ca Carb/ B Cmplx/FA/Prenat 1 tab DAILY PO 10/26/24 10:00 10/26/24 10:33 1 TAB Aspirin 81 mg DAILY PO 10/26/24 10:00 10/26/24 10:34 81 MG Atorvastatin Calcium 10 mg HS PO 10/26/24 22:00 Famotidine 20 mg DAILY IV 10/26/24 10:00 10/26/24 10:36 20 MG Heparin Sodium (Porcine) 5,000 units Q12HR SC 10/26/24 10:00 10/26/24 10:47 5,000 UNITS Sodium Chloride 10 ml Q8HR IV 10/26/24 14:00 Acetaminophen/ Hydrocodone Bitart 1 tab Q4HP PRN PO 10/26/24 08:45 Ondansetron HCl 4 mg Q4HP PRN IV 10/26/24 08:45 Docusate Sodium 100 mg BIDPRN PRN PO 10/26/24 08:45 Acetaminophen 650 mg Q6HP PRN PO 10/26/24 08:45 Hydralazine HCl 10 mg Q6HP PRN IV 10/26/24 08:45 Carvedilol 6.25 mg Q12HR PO 10/26/24 10:00 10/26/24 10:35 6.25 MG Amlodipine Besylate 5 mg DAILY PO 10/26/24 10:00 10/26/24 10:33 5 MG Exam Vital Signs Vital Signs Date Time Temp Pulse Resp B/P (MAP) Pulse Ox O2 Delivery O2 Flow Rate FiO2 10/26/24 10:35 81 163/65 10/26/24 10:09 19 95 Nasal Cannula* 4 36 10/26/24 10:09 97.8 97.8 General Appearance: Alert, Oriented X3, Cooperative, No acute distress HEENT: Atraumatic, PERRLA, EOMI, Mucous membr. moist/pink Respiratory: Normal air movement, Other (Diminished breath sounds) Cardiovascular: Regular rate, Normal S1, Normal S2, No murmurs Abdominal: Normal bowel sounds, Soft, No tenderness, No hepatospenomegaly, No masses Extremities: No clubbing, No cyanosis, No edema, Normal pulses, No tenderness/swelling Skin: No rashes, No breakdown, No significant lesion Neuro: Normal speech, Normal tone, Sensation intact, Cranial nerves 3-12 NL, Reflexes 2+, Other (Generalized weakness) Psych/Mental Status: Mental status NL, Mood NL Labs/Xrays Labs Test 10/26/24 10:40 10/26/24 07:06 Range/Units White Blood Count 6.6 4.4-10.8 10^3/uL Red Blood Count 2.80 L 4.5-5.90 10^6/uL Hemoglobin 8.1 L 13.5-17.5 g/dL Hematocrit 24.5 L 41.0-53.0 % Mean Corpuscular Volume 87.6 80.0-100.0 fL Mean Corpuscular Hemoglobin 28.8 28.0-32.0 pg Mean Corpuscular Hemoglobin Concent 32.9 32.0-36.0 g/dL Red Cell Distribution Width 15.0 H 11.8-14.3 % Platelet Count 228 140-450 10^3/uL Mean Platelet Volume 9.2 6.9-10.8 fL Neutrophils (%) (Auto) 83.7 H 37.0-80.0 % Lymphocytes (%) (Auto) 7.5 L 10.0-50.0 % Monocytes (%) (Auto) 6.1 0.0-12.0 % Eosinophils (%) (Auto) 2.0 0.0-7.0 % Basophils (%) (Auto) 0.7 0.0-2.0 % Neutrophils # (Auto) 5.5 1.6-8.6 10 ^3/uL Lymphocytes # (Auto) 0.5 0.4-5.4 10 ^3/uL Monocytes # (Auto) 0.4 0-1.3 10 ^3/uL Eosinophils # (Auto) 0.1 0-0.8 10 ^3/uL Basophils # (Auto) 0 0-0.2 10 ^3/uL Nucleated Red Blood Cells 0.0 % Sodium Level 140 136-145 mmol/L Potassium Level 4.2 3.5-5.1 mmol/L Chloride Level 108 H 98-107 mmol/L Carbon Dioxide Level 18 L 20-31 mmol/L Anion Gap 14 5-15 Blood Urea Nitrogen 70 H 9-23 mg/dL Creatinine 9.30 H 0.700-1.30 mg/dL Glomerular Filtration Rate Calc 6 >90 mL/min BUN/Creatinine Ratio 7.5 L 10.0-20.0 Serum Glucose 111 H 74-106 mg/dL Calcium Level 9.0 8.7-10.4 mg/dL B-Type Natriuretic Peptide 3094.99 0-100 pg/mL PATIENT: MELISSA MATHEWSACCT: [id number] UNIT: [id number] : 1955 LOC: ER ROOM / BED: / AGE / SEX: 69 / M ADM STATUS: REG ER SERVICE [id number] ORDERING PHYSICIAN: URSZULA PANDA MD PROCEDURE(s): CXRP - CHEST PORTABLE REASON: sob ORDER NUMBER(s): [id number], ACCESSION NUMBER(s): [id number] CHEST RADIOGRAPH Indication: sob Technique: Single frontal view of the chest was obtained Comparison: XY CHEST PORTABLE on DOS: 09/24/24 FINDINGS: Lines and Tubes: None Lungs: There is bilateral interstitial prominence. No focal consolidation. Pleura: No effusion. No pneumothorax. Cardiomediastinal contours: Stable. Bones: No acute osseous abnormality. IMPRESSION: 1. Stable pulmonary vascular congestion. Assessment/Plan Assessment/Plan Acute exacerbation of congestive heart failure Chest pain Generalized weakness Elevated troponin Anemia of chronic disease COPD with acute exacerbation Chronic kidney disease on chronic dialysis Plan 1. Admit to telemetry unit 2. Breathing treatment 3. Pain control management 4. Management of fluids and electrolytes 5. Consultation for Nephrology 6. Diagnostic tests chest x-ray 7. DVT prophylaxis-on heparin 8. Repeat labs CBC, CMP in a.m. 9. Continue with current medical management 10. Treatment plan discussed with patient and RN. Patient verbalized understanding. Plan discussed with: Patient, Other (RN) My Orders Orders - NOREEN BHATT DNP Procedure Category Date Status Time Sevelamer (Renagel) PHA 10/26/24 In Process 12:00 B-Complex W/ C & PHA 10/26/24 In Process Folic Tablet 10:00 Aspirin Tablet PHA 10/26/24 In Process 10:00 Atorvastatin (Lipitor) PHA 10/26/24 In Process 22:00 Famotidine Injection PHA 10/26/24 In Process (Pepcid Injection) 10:00 *Dr. Miguelito Carlton CONS 10/26/24 Transmitted -[place] 08:45 Heparin Sodium PHA 10/26/24 In Process (Porcine) 10:00 Allergies RAÚL 10/26/24 In Process 08:45 Code Status CODE 10/26/24 Transmitted 08:45 Renal DIET 10/26/24 Transmitted Standard(2gna,3gk,Lopho) Breakfast Sodium Chloride Lock PHA 10/26/24 In Process (Saline Lock Ns) 14:00 Oxygen Per Hour RT 10/26/24 Transmitted 08:45 Hydrocodone-Acet PHA 10/26/24 In Process 5/325mg Tab ([place] 08:45 Ondansetron Hcl PHA 10/26/24 In Process (Zofran) 08:45 Docusate Sodium PHA 10/26/24 In Process Capsule (Colace 08:45 Complete Blood Count LAB 10/27/24 Verified 04:00 Comprehensive LAB 10/27/24 Verified Metabolic Panel 04:00 Echo 2d Mode Cardiac US 10/26/24 Logged DOP 08:45 Condition: Serious RAÚL 10/26/24 In Process 08:45 Acetaminophen Tablet PHA 10/26/24 In Process (Tylenol Tablet) 08:45 Bedrest With Bathroom RAÚL 10/26/24 In Process Privileg 08:45 Sequential RAÚL 10/26/24 In Process Compression Device Hydralazine Injection PHA 10/26/24 In Process (Apresoline Inject 08:45 Carvedilol Tablet PHA 10/26/24 In Process (Coreg Tablet) 10:00 Amlodipine Tablet PHA 10/26/24 In Process (Norvasc Tablet) 10:00 Problem List: (1) Acute exacerbation of congestive heart failure (2) Chest pain (3) COPD with acute exacerbation (4) Generalized weakness (5) Anemia of chronic disease (6) Elevated troponin (7) Chronic kidney disease on chronic dialysis Date of Service: Oct 26, 2024 Billing Provider: NOREEN BHATT DNP Common Visit Codes: [id number] INP/OBS CARE (HIGH) NOREEN BHATT DNP Oct 26, 2024 11:54
[2024-10-26 12:15] LABS: Urine Bacteria None Seen /hpf (None Seen)
[2024-10-26 12:49] LABS: Urine Blood Negative /uL (Negative); Urine Clarity Clear (Clear); Urine Color Light-Yellow (Yellow); Urine Protein, UAD 2+ (Negative); Urine Specific Gravity 1.015 (1.001-1.035); Urine Squamous Epithelial Cell FEW /hpf (<5); Urine Urobilinogen Normal (Negative); Urine WBC 20 /hpf (0 - 3)
--- NOTE | 2024-10-26 13:01 | DVHSR ---
APPROVED REPORT EXAM: Two-dimensional and M-mode echocardiogram with Doppler and color Doppler. Blood Pressure: 189/82 mmHg INDICATION History of CHF RISK FACTORS Height: 63, Weight: 170 DIMENSIONS LVDd5.4 (3.8-5.7cm)LA (2D)5.2 (1.9-4.0cm)Aortic Root4.1 (2.0-3.7cm) LVDs3.9 (2.5-4.0cm)LA (MM) (1.9-4.0cm)Aortic Cusp Exc1.8 (1.5-2.0cm) EF (%) 55.0 (55-70%)Rt. Atrium4.7 (1.9-4.0cm)Asc. Aorta cm IVSd1.9 (0.7-1.1cm)RV (D) (1.8-2.4cm) PWd1.8 (0.7-1.1cm) Mitral Valve MitralMitral Stenosis E wave0.98m/sMV Mean GR.mmHg A wave1.18m/sMV Peak GR.84mmHg E/A ratio0.82D MVAcm2 DECEL [id number] 1/2 [id number] IVRTmsDop MVA2.47cm2 Aortic Valve Aortic ValveAortic Stenosis V11.20m/Nba Mean GR.16mmHg V22.71m/Nba Peak GR.29mmHg LVOT Diameter2.4 (1.8-2.4cm)Doppler AVA2.00cm2 AI P 1/2 Sliz396.64ms Pulmonic Valve V20.92m/s Tricuspid Valve TR Velocity2.83m/s [id number] LEFT VENTRICLE Normal left ventricular size. There is severe concentric left ventricular hypertrophy. Ejection fra ction is normal and is estimated at 55%. There is no regional wall motion abnormalities. There is g rade II diastolic dysfunction. E to E prime ratio is elevated suggestive of high left-sided filling pressure. RIGHT VENTRICLE The right ventricle is mildly dilated in size. Right ventricular systolic function is normal. ATRIA There is moderate biatrial enlargement. MITRAL VALVE Normal in structure and function. There is mild mitral regurgitation. PULMONIC VALVE Likely normal. TRICUSPID VALVE Normal structure and function. There is trace tricuspid regurgitation. PA systolic pressure is charli mated at 35 mm Hg. AORTIC VALVE Leaflets are not well visualized. Leaflets appeared to be at least moderately calcified. The aortic valve area is estimated at 1.8 cm2. Peak velocity is 2.7 m/sec with a mean gradient of 60 mm Hg. T here is mild to moderate insufficiency. GREAT VESSELS The aortic root is mildly dilated in size and measures 4.1 cm at the sinuses of Valsalva. The proxim al ascending aorta is not well visualized. PERICARDIAL EFFUSION No significant pericardial effusion. IVC is of normal size and collapses normally with inspiration. Conclusion Normal left ventricular size and systolic function. Severe concentric left ventricular hypertrophy. Grade II diastolic dysfunction with evidence of elevated left-sided filling pressure. Mildly dilated right ventricle with preserved systolic function. Calcified aortic valve with xasl-gl-obavodwd stenosis and vnsa-xm-mzhocbbn insufficiency. Moderate biatrial enlargement. PA systolic pressure is estimated at 35 mm Hg. Mildly dilated aortic root.
[2024-10-26] MEDS: hydrALAZINE HCL 20 MG/ML VL IV PRN (13:25)
[2024-10-26] MEDS: SODIUM CHLOR 0.9% PF (SALINE LOCK) 10ML VIAL/SYR IV SCH (14:07)
--- NOTE | 2024-10-26 15:18 | DVHINCON2 ---
Date of service: Oct 26, 2024 Reason for Consultation ESRD History of Present Illness 69 years old male with past medical history of end-stage renal disease on hemodialysis, CHF, COPD hypertension, and [place] who presented to [facility] ED with complaint chest pain /shortness of breath Patient missed dialysis treatment, reports bleeding from AVF , Past Medical History As per HPI Allergies: Coded Allergies: NO KNOWN ALLERGIES (Unverified , 10/17/22) Home Meds Active Scripts Doxycycline (Monohydrate) (Doxycycline) 100 Mg Cap, 100 MG PO BID for 10 Days, #20 CAP Prov:BETZAIDA FERNANDEZ [employer] 01/15/24 Reported Medications Nifedipine (Nifedipine Er) 60 Mg Tab, 1 TAB PO DAILY 01/14/24 Tamsulosin Hcl (Tamsulosin Hcl) 0.4 Mg Cap, 1 CAP PO DAILY 01/14/24 Hydralazine Hcl (Hydralazine Hcl) 100 Mg Tab, 1 TAB PO DAILY 01/14/24 Oxycodone W/ Acetaminophen (Percocet 5/325MG) 1 Tab Tb, 1 TAB PO QID, #120 TAB 09/07/23 Alprazolam (Xanax) 0.5 Mg Tb, 1 TAB PO DAILY, #30 TAB 09/07/23 Clonidine Hydrochloride (Clonidine Hcl) 0.3 Mg/24 Hr Dis, 0.3 MG PO Q8HR, MG 09/07/23 Current Medications Current Medications Medications (Trade) Dose Ordered Sig/Miguel Route PRN Reason Start Time Stop Time Status Last Admin Sevelamer HCl (Renagel) 800 mg TIDWM PO 10/26/24 12:00 10/26/24 11:54 Multivit/Ca Carb/ B Cmplx/FA/Prenat (Nephro-Kelly Tablet) 1 tab DAILY PO 10/26/24 10:00 10/26/24 10:33 Aspirin 81 mg DAILY PO 10/26/24 10:00 10/26/24 10:34 Atorvastatin Calcium (Lipitor) 10 mg HS PO 10/26/24 22:00 Famotidine (Pepcid Injection) 20 mg DAILY IV 10/26/24 10:00 10/26/24 10:36 Heparin Sodium (Porcine) 5,000 units Q12HR SC 10/26/24 10:00 10/26/24 10:47 Sodium Chloride (Saline Lock Ns) 10 ml Q8HR IV 10/26/24 14:00 10/26/24 14:07 Acetaminophen/ Hydrocodone Bitart ([place] 5/325MG Tab) 1 tab Q4HP PRN PO MODERATE PAIN (4-6 PAIN SCALE) 10/26/24 08:45 Ondansetron HCl (Zofran) 4 mg Q4HP PRN IV NAUSEA / VOMITING 10/26/24 08:45 Docusate Sodium (Colace Capsule) 100 mg BIDPRN PRN PO FOR CONSTIPATION 10/26/24 08:45 Acetaminophen (Tylenol Tablet) 650 mg Q6HP PRN PO PAIN SCALE 1-3 OR TEMP>100.4 10/26/24 08:45 Hydralazine HCl (Apresoline Injection) 10 mg Q6HP PRN IV SBP>150 10/26/24 08:45 10/26/24 13:25 Carvedilol (Coreg Tablet) 6.25 mg Q12HR PO 10/26/24 10:00 10/26/24 10:35 Amlodipine Besylate (Norvasc Tablet) 5 mg DAILY PO 10/26/24 10:00 10/26/24 10:33 Nitroglycerin (Ntrostat Sublingual) 0.4 mg Q5MINP PRN SL FOR CHEST PAIN 10/26/24 11:30 Morphine Sulfate 2 mg Q30M PRN IV FOR CHEST PAIN 10/26/24 11:30 Clonidine HCl (Catapres Tablet) 0.1 mg Q6HP PRN PO SBP>160 10/26/24 15:15 UNV Family History: Arthritis G8 MOTHER Cardiovascular disease G8 FATHER Diabetes mellitus G8 MOTHER G8 FATHER Review of Systems As documented in HPI otherwise negative H&P Exam Vital Signs/I&O Vital Sign Date Time Temp Pulse Resp B/P (MAP) Pulse Ox O2 Delivery O2 Flow Rate FiO2 10/26/24 13:25 236/101 10/26/24 12:00 73 10/26/24 10:09 19 95 Nasal Cannula* 4 36 10/26/24 10:09 97.8 97.8 Physical Exam General-not in any distress HEENT-normocephalic, no icterus, no pallor, neck supple Respiratory-fair air entry bilateral, [id number] heard, no murmurs appreciated Abdominal-soft, nontender, nondistended Musculoskeletal-+ pedal edema, no calf tenderness Genitourinary-deferred Neuro-awake alert oriented x3, Psychiatric-not agitated, cooperative, Labs/Diagnostic Data Labs/Diagnostic Data Laboratory Tests Test 10/26/24 13:19 10/26/24 12:00 10/26/24 10:40 10/26/24 07:06 Range/Units Troponin I High Sensitivity 114 *H 107 *H 116 *H </=54 ng/L Urine Color Light-yellow Yellow Urine Clarity Clear Clear Urine pH 6.0 5.0-9.0 Urine Specific [place] 1.015 1.001-1.035 Urine Protein 2+ H Negative Urine Ketones Negative Negative Urine Blood Negative Negative /uL Urine Nitrite Negative Negative Urine Bilirubin Negative Negative Urine Urobilinogen Normal Negative mg/dL Urine Leukocyte Esterase 1+ Negative /uL Urine RBC 1 0 - 3 /hpf Urine WBC 20 0 - 3 /hpf Urine Squamous Epithelial Cells Few <5 /hpf Urine Bacteria None seen None Seen /hpf Urine Glucose Normal Normal mg/dL White Blood Count 6.6 4.4-10.8 10^3/uL Red Blood Count 2.80 L 4.5-5.90 10^6/uL Hemoglobin 8.1 L 13.5-17.5 g/dL Hematocrit 24.5 L 41.0-53.0 % Mean Corpuscular Volume 87.6 80.0-100.0 fL Mean Corpuscular Hemoglobin 28.8 28.0-32.0 pg Mean Corpuscular Hemoglobin Concent 32.9 32.0-36.0 g/dL Red Cell Distribution Width 15.0 H 11.8-14.3 % Platelet Count 228 140-450 10^3/uL Mean Platelet Volume 9.2 6.9-10.8 fL Neutrophils (%) (Auto) 83.7 H 37.0-80.0 % Lymphocytes (%) (Auto) 7.5 L 10.0-50.0 % Monocytes (%) (Auto) 6.1 0.0-12.0 % Eosinophils (%) (Auto) 2.0 0.0-7.0 % Basophils (%) (Auto) 0.7 0.0-2.0 % Neutrophils # (Auto) 5.5 1.6-8.6 10 ^3/uL Lymphocytes # (Auto) 0.5 0.4-5.4 10 ^3/uL Monocytes # (Auto) 0.4 0-1.3 10 ^3/uL Eosinophils # (Auto) 0.1 0-0.8 10 ^3/uL Basophils # (Auto) 0 0-0.2 10 ^3/uL Nucleated Red Blood Cells 0.0 % Sodium Level 140 136-145 mmol/L Potassium Level 4.2 3.5-5.1 mmol/L Chloride Level 108 H 98-107 mmol/L Carbon Dioxide Level 18 L 20-31 mmol/L Anion Gap 14 5-15 Blood Urea Nitrogen 70 H 9-23 mg/dL Creatinine 9.30 H 0.700-1.30 mg/dL Glomerular Filtration Rate Calc 6 >90 mL/min BUN/Creatinine Ratio 7.5 L 10.0-20.0 Serum Glucose 111 H 74-106 mg/dL Calcium Level 9.0 8.7-10.4 mg/dL B-Type Natriuretic Peptide 3094.99 0-100 pg/mL Assessment ESRD on hemodialysis Hypertensive urgency AV fistula bleeding Acute hypoxic respiratory failure Missed dialysis/noncompliant Recommendations Dialysis will be arranged today Blood pressure control Resume home blood pressure medications We will follow closely No heparin with dialysis Plan discussed with: Patient RIVER MCKINNON MD Oct 26, 2024 15:18
[2024-10-26] MEDS: cloNIDine HCL 0.1 MG TAB PO SCH (16:07)
[2024-10-26] MEDS: HYDROcodone-ACET 5/325MG TAB PO PRN (16:48)
[2024-10-26] MEDS: SODIUM CHL 0.9% 1000 ML BAG XX ONE (17:15)
[2024-10-26 19:30] VITALS: PULSE 81; RESP 19; O2SAT 95
[2024-10-26] MEDS: ATORVASTATIN 20 MG TAB PO SCH (22:18)
[2024-10-27] VITALS (8 sets, daily range): BP systolic 149–185; BP diastolic 46–77; PULSE 56–74; RESP 16–21; TEMP 97.3–98.4; O2SAT 93–98
[2024-10-27] MEDS: MORPHINE SULFATE INJ 2 MG/ml SYRG IV ONE (01:37)
[2024-10-27 05:53] LABS: Basophils # (auto) 0.1 10 ^3/uL (0-0.2); Eosinophils # (auto) 0.4 10 ^3/uL (0-0.8); Hemoglobin 7.2 g/dL (13.5-17.5); Lymphocytes # (auto) 0.6 10 ^3/uL (0.4-5.4); White Blood Cell 5.4 10^3/uL (4.4-10.8)
[2024-10-27 05:56] LABS: Basophils % (auto) 1.1 % (0.0-2.0); Hematocrit 21.8 % (41.0-53.0); Lymphocytes % (auto) 10.4 % (10.0-50.0); Mean Corpuscular Hemoglobin 28.8 pg (28.0-32.0); Mean Corpuscular Hgb Conc. 33.2 g/dL (32.0-36.0); Mean Corpuscular Volume 86.7 fL (80.0-100.0); Monocytes # (auto) 0.3 10 ^3/uL (0-1.3); Neutrophils % (auto) 75.5 % (37.0-80.0); Platelet Count (auto) 242 10^3/uL (140-450); Red Blood Cells 2.52 10^6/uL (4.5-5.90); Red Cell Distribution Width 14.5 % (11.8-14.3)
[2024-10-27 05:59] LABS: Albumin 3.6 g/dL (3.2-4.8); Alkaline Phosphatase 60 U/L (46-116); Anion Gap 8 (5-15); BUN/Creatinine Ratio 7.3 (10.0-20.0); Carbon Dioxide 25 mmol/L (20-31); Glucose 94 mg/dL (74-106); Potassium 4.2 mmol/L (3.5-5.1); Sodium 142 mmol/L (136-145)
[2024-10-27 06:00] LABS: Total Protein 6.1 g/dL (5.7-8.2)
[2024-10-27 06:14] LABS: Alanine Aminotransferase < 9 U/L (7-40); Aspartate Aminotransferase 12 U/L (13-40); Bilirubin, Total 0.2 mg/dL (0.2-1.0); Blood Urea Nitrogen 56 mg/dL (9-23); Calcium 8.5 mg/dL (8.7-10.4); Chloride 109 mmol/L (98-107)
[2024-10-27] MEDS: cloNIDine HCL 0.1 MG TAB PO PRN (09:16)
[2024-10-27] MEDS: NITROGLYCERIN 0.4 MG SL TAB SL PRN (10:29)
[2024-10-27] MEDS: MORPHINE SULFATE INJ 2 MG/ml SYRG IV PRN (11:54)
--- NOTE | 2024-10-27 12:51 | DVHPN2 ---
Reviewed: Care Plan, H&P, Labs, Medications, Previous Orders, Radiology Changes from previous H/P or p: No Changes Eyes: No Pain, No Vision change, No Conjunctivae inflammation, No Eyelid inflammation, No Other, No Redness ENT: No Ear pain, No Ear discharge, No Nose pain, No Nose discharge, No Nose congestion, No Mouth pain, No Mouth swelling, No Throat pain, No Throat swelling, No Other Cardiovascular: Chest Pain; No Palpitations, No Orthopnea, No Paroxysmal Noc. Dyspnea, No Edema, No Lt Headedness, No Other Respiratory: No Cough, No Dry; Shortness of breath; No SOB with excertion, No Wheezing, No Hemoptysis, No Pleuritic Pain, No Sputum; Other (SOB at rest) Gastrointestinal: No Nausea, No Vomiting, No Abdominal Pain, No Diarrhea, No Constipation, No Melena, No Hematochezia, No Other Genitourinary: No Dysuria, No Frequency, No Incontinence, No Hematuria, No Retention, No Other Musculoskeletal: No other, No neck pain, No shoulder pain, No arm pain, No back pain, No hand pain, No leg pain, No foot pain Skin: No Rash, No Lesions, No Jaundice, No Bruising, No Other Objective Vitals Vital Signs Date Time Temp Pulse Resp B/P (MAP) Pulse Ox O2 Delivery O2 Flow Rate FiO2 10/27/24 11:54 74 21 171/77 10/27/24 10:02 97.5 93 97.5 10/27/24 10:01 Nasal Cannula* 3 32 Medications Current Medications Medications Dose Ordered Sig/Miguel Route Start Time Stop Time Status Last Admin Dose Admin Sevelamer HCl 800 mg TIDWM PO 10/26/24 12:00 10/27/24 11:54 800 MG Multivit/Ca Carb/ B Cmplx/FA/Prenat 1 tab DAILY PO 10/26/24 10:00 10/27/24 10:30 1 TAB Aspirin 81 mg DAILY PO 10/26/24 10:00 10/27/24 10:32 81 MG Atorvastatin Calcium 10 mg HS PO 10/26/24 22:00 10/26/24 22:18 10 MG Famotidine 20 mg DAILY IV 10/26/24 10:00 10/26/24 10:36 20 MG Heparin Sodium (Porcine) 5,000 units Q12HR SC 10/26/24 10:00 10/26/24 22:17 5,000 UNITS Sodium Chloride 10 ml Q8HR IV 10/26/24 14:00 10/27/24 06:06 10 ML Acetaminophen/ Hydrocodone Bitart 1 tab Q4HP PRN PO 10/26/24 08:45 10/26/24 21:05 1 TAB Ondansetron HCl 4 mg Q4HP PRN IV 10/26/24 08:45 Docusate Sodium 100 mg BIDPRN PRN PO 10/26/24 08:45 Acetaminophen 650 mg Q6HP PRN PO 10/26/24 08:45 Hydralazine HCl 10 mg Q6HP PRN IV 10/26/24 08:45 10/27/24 06:41 10 MG Carvedilol 6.25 mg Q12HR PO 10/26/24 10:00 10/27/24 10:30 6.25 MG Amlodipine Besylate 5 mg DAILY PO 10/26/24 10:00 10/27/24 10:30 5 MG Nitroglycerin 0.4 mg Q5MINP PRN SL 10/26/24 11:30 10/27/24 10:29 0.4 MG Morphine Sulfate 2 mg Q30M PRN IV 10/26/24 11:30 10/27/24 11:54 2 MG Clonidine HCl 0.1 mg Q6HP PRN PO 10/26/24 15:15 10/27/24 09:16 0.1 MG Clonidine HCl 0.3 mg TID PO 10/26/24 15:45 10/27/24 06:06 0.3 MG Laboratory Results Laboratory Tests 10/27/24 05:00 Chemistry Test 10/27/24 05:00 Albumin 3.6 g/dL (3.2-4.8) Calcium Level 8.5 mg/dL (8.7-10.4) L Total Protein 6.1 g/dL (5.7-8.2) LFT Test 10/27/24 05:00 Alanine Aminotransferase (ALT) < 9 U/L (7-40) Alkaline Phosphatase 60 U/L (46-116) Aspartate Amino Transferase (AST) 12 U/L (13-40) L Total Bilirubin 0.2 mg/dL (0.2-1.0) Urinalysis Test 10/26/24 12:00 Urine Color Light-yellow (Yellow) Urine Clarity Clear (Clear) Urine pH 6.0 (5.0-9.0) Urine Specific [place] 1.015 (1.001-1.035) Urine Protein 2+ (Negative) H Urine Ketones Negative (Negative) Urine Blood Negative /uL (Negative) Urine Nitrite Negative (Negative) Urine Bilirubin Negative (Negative) Urine Urobilinogen Normal mg/dL (Negative) Urine Leukocyte Esterase 1+ /uL (Negative) Urine RBC 1 /hpf (0 - 3) Urine WBC 20 /hpf (0 - 3) Urine Squamous Epithelial Cells Few /hpf (<5) Urine Bacteria None seen /hpf (None Seen) Urine Glucose Normal mg/dL (Normal) Labs and/or images reviewed: Labs reviewed by me, Image(s) reviewed by me Assessment/Plan Assessment/Plan Acute exacerbation of congestive heart failure: Lasix cardiology consult ESRD on hemodialysis: Siddharth nephrology consult appreciated Chest pain troponin 107 treatment per ACS protocol Generalized weakness History of [place] Acute COPD exacerbation Hypertensive emergency Anemia of chronic disease COPD with acute exacerbation Chronic kidney disease on chronic dialysis Time spent 70 minutes Advanced care planning time 20 minutes Patient is full code Prognosis poor Patient is hospice revoked Lives with his sister in a trailer Plan discussed with: Patient My Orders Orders - CHUNG GOODWIN MD Procedure Category Date Status Time Insert Midline ORDERS 10/27/24 Transmitted 10:26 Troponin-I Hs LAB 10/27/24 Logged 13:35 Date of Service: Oct 27, 2024 Billing Provider: CHUNG GOODWIN MD Common Visit Codes: [id number] CARE 30-74 MIN CHUNG GOODWIN MD Oct 27, 2024 12:51
--- NOTE | 2024-10-27 14:32 | DVHPN2 ---
Progress Note Date Seen: Oct 27, 2024 Medical Necessity Reason Pt with a Central, PICC or Fol: No Subjective Patient reports: No new complaints, Feels better Review of Systems: Deferred Objective vital signs Vital Sign Date Time Temp Pulse Resp B/P (MAP) Pulse Ox O2 Delivery O2 Flow Rate FiO2 10/27/24 13:00 98.4 74 21 171/77 (108) 97 98.4 10/27/24 10:01 Nasal Cannula* 3 32 medications Current Medications Medications Dose Ordered Sig/Miguel Route Start Time Stop Time Status Last Admin Dose Admin Sevelamer HCl 800 mg TIDWM PO 10/26/24 12:00 10/27/24 11:54 800 MG Multivit/Ca Carb/ B Cmplx/FA/Prenat 1 tab DAILY PO 10/26/24 10:00 10/27/24 10:30 1 TAB Aspirin 81 mg DAILY PO 10/26/24 10:00 10/27/24 10:32 81 MG Atorvastatin Calcium 10 mg HS PO 10/26/24 22:00 10/26/24 22:18 10 MG Famotidine 20 mg DAILY IV 10/26/24 10:00 10/26/24 10:36 20 MG Heparin Sodium (Porcine) 5,000 units Q12HR SC 10/26/24 10:00 10/26/24 22:17 5,000 UNITS Sodium Chloride 10 ml Q8HR IV 10/26/24 14:00 10/27/24 06:06 10 ML Acetaminophen/ Hydrocodone Bitart 1 tab Q4HP PRN PO 10/26/24 08:45 10/26/24 21:05 1 TAB Ondansetron HCl 4 mg Q4HP PRN IV 10/26/24 08:45 Docusate Sodium 100 mg BIDPRN PRN PO 10/26/24 08:45 Acetaminophen 650 mg Q6HP PRN PO 10/26/24 08:45 Hydralazine HCl 10 mg Q6HP PRN IV 10/26/24 08:45 10/27/24 06:41 10 MG Carvedilol 6.25 mg Q12HR PO 10/26/24 10:00 10/27/24 10:30 6.25 MG Amlodipine Besylate 5 mg DAILY PO 10/26/24 10:00 10/27/24 10:30 5 MG Nitroglycerin 0.4 mg Q5MINP PRN SL 10/26/24 11:30 10/27/24 10:29 0.4 MG Morphine Sulfate 2 mg Q30M PRN IV 10/26/24 11:30 10/27/24 11:54 2 MG Clonidine HCl 0.1 mg Q6HP PRN PO 10/26/24 15:15 10/27/24 09:16 0.1 MG Clonidine HCl 0.3 mg TID PO 10/26/24 15:45 10/27/24 06:06 0.3 MG Examination: GENERAL:Normal, HEENT:Normal, NECK:Normal, LUNGS:Normal, CVS:Normal, ABDOMEN:Normal, MSK:Abnormal, SKIN:Normal, NEURO:Normal, :Normal laboratory and microbiology Laboratory Tests 10/27/24 05:00 Test 10/27/24 05:00 Range/Units Serum Glucose 94 74-106 mg/dL Problem List/Assessment/Plan Problem List/Assessment/Plan ESRD on hemodialysis Hypertensive urgency AV fistula bleeding--resolved Acute hypoxic respiratory failure Missed dialysis/noncompliant Recommendations Dialysis tomorrow Blood pressure control Resume home blood pressure medications We will follow closely No heparin with dialysis Plan discussed with: Patient, Spouse, Other My Orders My Orders Orders - RIVER MCKINNON MD Procedure Category Date Status Time Clonidine Hcl Tablet PHA 10/26/24 In Process (Catapres Tablet) 15:15 Dialysis Nursing RAÚL 10/26/24 In Process Message 17:08 Document Fluid Input RAÚL 10/26/24 In Process And Outpu 17:08 Acute Hepatitis Panel LAB 10/26/24 In Process 17:08 Hemodialysis Orders ORDERS 10/26/24 Transmitted 17:08 Amlodipine Tablet PHA 10/28/24 Verified (Norvasc Tablet) 10:00 RIVER MCKINNON MD Oct 27, 2024 14:32
--- NOTE | 2024-10-27 15:00 | ECG ---
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
--- NOTE | 2024-10-27 15:00 | ECG ---
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
--- NOTE | 2024-10-27 17:08 | DVHINCON2 ---
Date Seen: Oct 27, 2024 Referring Physician MD Ilya Reason for Consultation Elevated troponin, CHF History of Present Illness This is a 69-year-old male who presented to the emergency room via EMS with a chief complaint of shortness of breath during hemodialysis. The patient reports he was undergoing a hemodialysis treatment when he experienced shortness of breath associated with chest discomfort, palpitations, angioedema, and dysarthria. Per EMS, the patient did not receive hemodialysis treatments since 10/20/2024 secondary to noncompliance. Twelve lead electrocardiogram reviewed revealing a sinus rhythm with inferolateral ST depression, this changes are similar to those from previous admissions. Serial troponin levels peaked at 114 ng/L. Reports undergoing cardiac workup including a cardiac catheterization without catheter based intervention given negative coronary artery disease at [facility] on 2019. Significant past medical history includes CHF, myocardial infarction without evidence of CAD, hypertension, ESRD on HD, the with home O2 and current tobacco use, TIA, BPH, anxiety, cannabinoid use, remote history of methamphetamines, smoking history of 37.5 pack years, obesity, and noncompliance. Past Medical History Past medical history reviewed. No other significant than mentioned above. Past Surgical History Hernia repair Partial right index finger amputation Family History: Arthritis G8 MOTHER Cardiovascular disease G8 FATHER Diabetes mellitus G8 MOTHER G8 FATHER Family History Family history reviewed. Social History Tobacco x 37.5 pack-years history, states he still smokes 1.5 packs/day. Patient reports cannabinoid use and remote history of methamphetamine use. Patient denies alcohol use. Allergies: Coded Allergies: NO KNOWN ALLERGIES (Unverified , 10/17/22) Home Meds Reported Medications Sevelamer Carbonate (Renvela) 800 Mg Tab, 2 TAB PO TID for 90 Days, #540 10/27/24 Alprazolam (Alprazolam) 1 Mg Tab, 1 TAB PO DAILYPRN for 30 Days, #30 10/27/24 Nifedipine (Nifedipine Er) 60 Mg Tab, 1 TAB PO DAILY 01/14/24 Tamsulosin Hcl (Tamsulosin Hcl) 0.4 Mg Cap, 1 CAP PO DAILY 01/14/24 Hydralazine Hcl (Hydralazine Hcl) 100 Mg Tab, 1 TAB PO DAILY for 30 Days, #30 01/14/24 Oxycodone W/ Acetaminophen (Percocet 5/325MG) 1 Tab Tb, 1 TAB PO QID, #120 TAB 11/18/23 Clonidine Hydrochloride (Clonidine Hcl) 0.3 Mg/24 Hr Dis, 0.3 MG PO Q8HR, MG 09/07/23 Discontinued Reported Medications Alprazolam (Xanax) 0.5 Mg Tb, 1 TAB PO DAILY, #30 TAB 09/07/23 Home Meds Home medications reviewed. Current Medications Current Medications Medications (Trade) Dose Ordered Sig/Miguel Route PRN Reason Start Time Stop Time Status Last Admin Atorvastatin Calcium (Lipitor) 10 mg HS PO 10/26/24 22:00 10/26/24 22:18 Amlodipine Besylate (Norvasc Tablet) 10 mg DAILY PO 10/28/24 10:00 Review of Systems Constitutional: No symptom reported Ears, Nose, & Throat: No symptom reported Eyes: No symptom reported Neurological: No symptoms reported Pulmonary/Respiratory: SOB Cardiovascular: Chest pain, palpitations Gastrointestinal: No symptom reported Genitourinary: No symptom reported Musculoskeletal: No symptom reported Skin: No symptom reported Psychiatric: No symptom reported Endocrine: No symptom reported Hemotologic/Lymphatic: No symptom reported Vital Signs Vital Signs Date Time Temp Pulse Resp B/P (MAP) Pulse Ox O2 Delivery O2 Flow Rate FiO2 10/27/24 15:32 164/80 10/27/24 13:00 98.4 74 21 97 98.4 10/27/24 10:01 Nasal Cannula* 3 32 Physical Exam General Appearance: Cooperative. Well developed. Obese. In no acute distress Head Exam: Normal inspection Neck Exam: Normal inspection. Non-tender. Normal alignment Pulmonary/Respiratory: Chest non-tender. Clear bilateral breath sounds Cardiovascular/Chest: Regular rate and rhythm. S1, S2. Sinus rhythm with inferolateral ST segment depression. Peripheral Pulses: 2+ Radial (R). 2+ Radial (L). 2+ Pedal (R). 2+ Pedal (L) Abdominal Exam: Normal bowel sounds. Soft. Nontender. No hepatospenomegaly. No masses Ankle Exam: Negative ankle edema Lower extremities: Negative lower extremity edema Neuro/Mental Status: A&O x3. Coherent a poor historian Thoughts/Psych: Normal thought pattern. Somewhat anxious Appearance: In no acute distress Skin Exam: Normal inspection. Normal color. Warm. Dry Labs/Diagnostic Data Labs Test 10/27/24 13:44 1/7/25 05:00 10/26/24 12:00 10/26/24 07:06 Range/Units Troponin I High Sensitivity 83 *H </=54 ng/L White Blood Count 5.4 4.4-10.8 10^3/uL Red Blood Count 2.52 L 4.5-5.90 10^6/uL Hemoglobin 7.2 L 13.5-17.5 g/dL Hematocrit 21.8 #L 41.0-53.0 % Mean Corpuscular Volume 86.7 80.0-100.0 fL Mean Corpuscular Hemoglobin 28.8 28.0-32.0 pg Mean Corpuscular Hemoglobin Concent 33.2 32.0-36.0 g/dL Red Cell Distribution Width 14.5 H 11.8-14.3 % Platelet Count 242 140-450 10^3/uL Mean Platelet Volume 9.0 6.9-10.8 fL Neutrophils (%) (Auto) 75.5 37.0-80.0 % Lymphocytes (%) (Auto) 10.4 10.0-50.0 % Monocytes (%) (Auto) 6.0 0.0-12.0 % Eosinophils (%) (Auto) 7.0 0.0-7.0 % Basophils (%) (Auto) 1.1 0.0-2.0 % Neutrophils # (Auto) 4.0 1.6-8.6 10 ^3/uL Lymphocytes # (Auto) 0.6 0.4-5.4 10 ^3/uL Monocytes # (Auto) 0.3 0-1.3 10 ^3/uL Eosinophils # (Auto) 0.4 0-0.8 10 ^3/uL Basophils # (Auto) 0.1 0-0.2 10 ^3/uL Nucleated Red Blood Cells 0.0 % Sodium Level 142 136-145 mmol/L Potassium Level 4.2 3.5-5.1 mmol/L Chloride Level 109 H 98-107 mmol/L Carbon Dioxide Level 25 20-31 mmol/L Anion Gap 8 5-15 Blood Urea Nitrogen 56 #H 9-23 mg/dL Creatinine 7.70 H 0.700-1.30 mg/dL Glomerular Filtration Rate Calc 7 >90 mL/min BUN/Creatinine Ratio 7.3 L 10.0-20.0 Serum Glucose 94 74-106 mg/dL Calcium Level 8.5 L 8.7-10.4 mg/dL Total Bilirubin 0.2 0.2-1.0 mg/dL Aspartate Amino Transferase (AST) 12 L 13-40 U/L Alanine Aminotransferase (ALT) < 9 7-40 U/L Alkaline Phosphatase 60 46-116 U/L Total Protein 6.1 5.7-8.2 g/dL Albumin 3.6 3.2-4.8 g/dL Urine Color Light-yellow Yellow Urine Clarity Clear Clear Urine pH 6.0 5.0-9.0 Urine Specific [place] 1.015 1.001-1.035 Urine Protein 2+ H Negative Urine Ketones Negative Negative Urine Blood Negative Negative /uL Urine Nitrite Negative Negative Urine Bilirubin Negative Negative Urine Urobilinogen Normal Negative mg/dL Urine Leukocyte Esterase 1+ Negative /uL Urine RBC 1 0 - 3 /hpf Urine WBC 20 0 - 3 /hpf Urine Squamous Epithelial Cells Few <5 /hpf Urine Bacteria None seen None Seen /hpf Urine Glucose Normal Normal mg/dL B-Type Natriuretic Peptide 3094.99 0-100 pg/mL Assessment Cardiorenal syndrome type 4 NSTEMI type II secondary to above History of myocardial infarction w/o evidence of CAD Hypertension COPD on home O2 ESRD on HD with missed treatment Nicotine dependence Polysubstance use Medical noncompliance Plan/Recommendation (Dr. Karimi) The patient underwent a transthoracic echocardiogram revealing an LVEF of 55% without regional wall motion abnormalities and grade II diastolic dysfunction. Continue Nephrology recommendations for hemodialysis. Monitor H&H closely and transfuse as necessary. Obtain UDS. Initiate nicotine patch. Strongly counseled on tobacco and substance abuse cessation. There is no further cardiac workup indicated at this time. Thank you for allowing us to participate in this patient's care. Please call if you have any questions or concerns. This medical document was created using an electronic medical record system with voice recognition software and computerized dictation system. Although this document has been carefully reviewed, there might still be some phonetic and typographical errors. Occasional wrong-word or ``sound-alike substitutions may have occurred due to the inherent limitations of voice recognition software. These areas are purely typographical due to imperfections of the software programs and do not reflect any compromise in the patient's medical care. Please read the chart carefully and recognize, using context, where these substitutions have occurred. Plan discussed with: Patient, Other NYHA Physical activity limitations: NA Date of Service: Oct 27, 2024 Billing Provider: TREVOR KARIMI Sr., MD Cardiology Common Codes: [id number] INP/OBS CARE (High) RENZO [employer] LEADER Oct 27, 2024 17:07
[2024-10-27] MEDS ORDERED: NICOTINE 14 MG/24HR TOPICAL PATCH TD ONE (17:15)
[2024-10-28] VITALS (9 sets, daily range): BP systolic 132–180; BP diastolic 62–98; PULSE 55–69; RESP 14–19; TEMP 97.4–99.1; O2SAT 95–99
--- NOTE | 2024-10-28 11:32 | DVHPN2 ---
Reviewed: Care Plan, H&P, Labs, Medications, Previous Orders, Radiology Changes from previous H/P or p: No Changes Eyes: No Pain, No Vision change, No Conjunctivae inflammation, No Eyelid inflammation, No Other, No Redness ENT: No Ear pain, No Ear discharge, No Nose pain, No Nose discharge, No Nose congestion, No Mouth pain, No Mouth swelling, No Throat pain, No Throat swelling, No Other Cardiovascular: Chest Pain; No Palpitations, No Orthopnea, No Paroxysmal Noc. Dyspnea, No Edema, No Lt Headedness, No Other Respiratory: No Cough, No Dry; Shortness of breath; No SOB with excertion, No Wheezing, No Hemoptysis, No Pleuritic Pain, No Sputum; Other (SOB at rest) Gastrointestinal: No Nausea, No Vomiting, No Abdominal Pain, No Diarrhea, No Constipation, No Melena, No Hematochezia, No Other Genitourinary: No Dysuria, No Frequency, No Incontinence, No Hematuria, No Retention, No Other Musculoskeletal: No other, No neck pain, No shoulder pain, No arm pain, No back pain, No hand pain, No leg pain, No foot pain Skin: No Rash, No Lesions, No Jaundice, No Bruising, No Other Objective Vitals Vital Signs Date Time Temp Pulse Resp B/P (MAP) Pulse Ox O2 Delivery O2 Flow Rate FiO2 10/28/24 09:00 97.4 68 14 143/66 (91) 96 97.4 10/27/24 20:00 Nasal Cannula* 3 32 Intake/Output Intake and Output 10/28/24 07:00 Intake Total 1800 ml Balance 1800 ml Intake Oral 1800 ml # Voids 4 Medications Current Medications Medications Dose Ordered Sig/Miguel Route Start Time Stop Time Status Last Admin Dose Admin Sevelamer HCl 800 mg TIDWM PO 10/26/24 12:00 10/28/24 08:51 800 MG Multivit/Ca Carb/ B Cmplx/FA/Prenat 1 tab DAILY PO 10/26/24 10:00 10/27/24 10:30 1 TAB Aspirin 81 mg DAILY PO 10/26/24 10:00 10/27/24 10:32 81 MG Atorvastatin Calcium 10 mg HS PO 10/26/24 22:00 10/27/24 21:37 10 MG Famotidine 20 mg DAILY IV 10/26/24 10:00 10/26/24 10:36 20 MG Heparin Sodium (Porcine) 5,000 units Q12HR SC 10/26/24 10:00 10/27/24 21:32 5,000 UNITS Sodium Chloride 10 ml Q8HR IV 10/26/24 14:00 10/28/24 06:20 10 ML Acetaminophen/ Hydrocodone Bitart 1 tab Q4HP PRN PO 10/26/24 08:45 10/28/24 06:22 1 TAB Ondansetron HCl 4 mg Q4HP PRN IV 10/26/24 08:45 Docusate Sodium 100 mg BIDPRN PRN PO 10/26/24 08:45 Acetaminophen 650 mg Q6HP PRN PO 10/26/24 08:45 Hydralazine HCl 10 mg Q6HP PRN IV 10/26/24 08:45 10/27/24 06:41 10 MG Carvedilol 6.25 mg Q12HR PO 10/26/24 10:00 10/27/24 21:41 6.25 MG Nitroglycerin 0.4 mg Q5MINP PRN SL 10/26/24 11:30 10/27/24 10:29 0.4 MG Morphine Sulfate 2 mg Q30M PRN IV 10/26/24 11:30 10/27/24 11:54 2 MG Clonidine HCl 0.3 mg TID PO 10/26/24 15:45 10/28/24 06:21 0.3 MG Amlodipine Besylate 10 mg DAILY PO 10/28/24 10:00 Nicotine 1 patch DAILY TD 10/28/24 10:00 Laboratory Results Laboratory Tests 10/27/24 05:00 Urinalysis Test 10/26/24 12:00 Urine Color Light-yellow (Yellow) Urine Clarity Clear (Clear) Urine pH 6.0 (5.0-9.0) Urine Specific [place] 1.015 (1.001-1.035) Urine Protein 2+ (Negative) H Urine Ketones Negative (Negative) Urine Blood Negative /uL (Negative) Urine Nitrite Negative (Negative) Urine Bilirubin Negative (Negative) Urine Urobilinogen Normal mg/dL (Negative) Urine Leukocyte Esterase 1+ /uL (Negative) Urine RBC 1 /hpf (0 - 3) Urine WBC 20 /hpf (0 - 3) Urine Squamous Epithelial Cells Few /hpf (<5) Urine Bacteria None seen /hpf (None Seen) Urine Glucose Normal mg/dL (Normal) Labs and/or images reviewed: Labs reviewed by me, Image(s) reviewed by me Assessment/Plan Assessment/Plan Acute exacerbation of congestive heart failure: Lasix cardiology consult appreciated, echo 55 percent ejection fraction, no further cardiac workup ESRD on hemodialysis: Siddharth nephrology consult appreciated Chest pain troponin 107 treatment per ACS protocol Generalized weakness History of [place] Chronic current smoking: Nicotine patch and, counselling Acute COPD exacerbation Hypertensive emergency Anemia of chronic disease COPD with acute exacerbation Chronic kidney disease on chronic dialysis Time spent 50 minutes Advanced care planning time 20 minutes Patient is full code Prognosis poor Patient is hospice revoked Lives with his sister Alma Rosa [phone] in a trailer Plan discussed with: Patient My Orders Orders - CHUNG GOODWIN MD Procedure Category Date Status Time * Cardiology Consult CONS 10/27/24 Transmitted 17:02 Date of Service: Oct 28, 2024 Billing Provider: CHUNG GOODWIN MD Common Visit Codes: [id number] INP/OBS CARE(HIGH) Secondary Visit Codes: [id number] CARE PLAN 30 MINUTES CHUNG GOODWIN MD Oct 28, 2024 11:32
[2024-10-28] MEDS: amLODIPine BESYLATE 5 MG TAB PO SCH (13:06)
[2024-10-28] MEDS: NICOTINE 14 MG/24HR TOPICAL PATCH TD SCH (13:16)
--- NOTE | 2024-10-28 17:07 | DVHPN2 ---
Progress Note Date Seen: Oct 28, 2024 Medical Necessity Reason Pt with a Central, PICC or Fol: No Subjective Patient reports: No new complaints, Feels better Review of Systems: HEENT:Normal, CVS:Normal, RESPIRATORY:Normal, GI:Normal, :Normal, MSK:Normal, NEURO:Normal Objective vital signs Vital Sign Date Time Temp Pulse Resp B/P (MAP) Pulse Ox O2 Delivery O2 Flow Rate FiO2 10/28/24 15:01 134/62 10/28/24 14:08 57 10/28/24 12:46 98.1 16 95 98.1 10/28/24 08:00 Nasal Cannula* 3 32 Total Intake and Output 10/27/24 10/27/24 10/28/24 15:00 23:00 07:00 Intake Total 1200 ml 600 ml Balance 1200 ml 600 ml medications Current Medications Medications Dose Ordered Sig/Miguel Route Start Time Stop Time Status Last Admin Dose Admin Sevelamer HCl 800 mg TIDWM PO 10/26/24 12:00 10/28/24 17:00 800 MG Multivit/Ca Carb/ B Cmplx/FA/Prenat 1 tab DAILY PO 10/26/24 10:00 10/28/24 13:08 1 TAB Aspirin 81 mg DAILY PO 10/26/24 10:00 10/28/24 13:07 81 MG Atorvastatin Calcium 10 mg HS PO 10/26/24 22:00 10/27/24 21:37 10 MG Famotidine 20 mg DAILY IV 10/26/24 10:00 10/28/24 13:07 20 MG Heparin Sodium (Porcine) 5,000 units Q12HR SC 10/26/24 10:00 10/28/24 13:13 5,000 UNITS Sodium Chloride 10 ml Q8HR IV 10/26/24 14:00 10/28/24 14:31 10 ML Acetaminophen/ Hydrocodone Bitart 1 tab Q4HP PRN PO 10/26/24 08:45 Hold 10/28/24 13:07 1 TAB Ondansetron HCl 4 mg Q4HP PRN IV 10/26/24 08:45 Docusate Sodium 100 mg BIDPRN PRN PO 10/26/24 08:45 Acetaminophen 650 mg Q6HP PRN PO 10/26/24 08:45 Hydralazine HCl 10 mg Q6HP PRN IV 10/26/24 08:45 1/7/25 06:41 10 MG Carvedilol 6.25 mg Q12HR PO 10/26/24 10:00 10/28/24 13:08 6.25 MG Nitroglycerin 0.4 mg Q5MINP PRN SL 10/26/24 11:30 10/27/24 10:29 0.4 MG Morphine Sulfate 2 mg Q30M PRN IV 10/26/24 11:30 10/27/24 11:54 2 MG Clonidine HCl 0.3 mg TID PO 10/26/24 15:45 10/28/24 15:01 0.3 MG Amlodipine Besylate 10 mg DAILY PO 10/28/24 10:00 10/28/24 13:06 10 MG Nicotine 1 patch DAILY TD 10/28/24 10:00 10/28/24 13:16 1 PATCH Morphine Sulfate 2 mg Q4HPRN PRN IV 10/28/24 14:00 Examination: GENERAL:Normal, HEENT:Normal, NECK:Normal, LUNGS:Normal, CVS:Normal, ABDOMEN:Normal, MSK:Abnormal, SKIN:Normal, NEURO:Normal, :Normal laboratory and microbiology Laboratory Tests 10/27/24 05:00 Test 10/27/24 05:00 Range/Units Serum Glucose 94 74-106 mg/dL Problem List/Assessment/Plan Problem List/Assessment/Plan ESRD on hemodialysis Hypertensive urgency AV fistula bleeding--resolved Acute hypoxic respiratory failure Missed dialysis/noncompliant Recommendations Dialysis today Blood pressure control Resume home blood pressure medications Plan discussed with: Patient RIVER MCKINNON MD Oct 28, 2024 17:07
[2024-10-28] MEDS: DOCUSATE SOD 100 MG CAP PO PRN (21:53)
[2024-10-28] MEDS: MORPHINE SULFATE INJ 2 MG/ml SYRG IV PRN (21:56)
[2024-10-29 05:00] VITALS: BP 177/74; PULSE 57; RESP 18; TEMP 98.7; O2SAT 98
[2024-10-29 08:00] VITALS: PULSE 54; PULSE 61; RESP 18; O2SAT 95
[2024-10-29 08:40] VITALS: BP 130/63; PULSE 55; RESP 17; TEMP 98.1; O2SAT 98
--- NOTE | 2024-10-29 10:07 | DVHPN2 ---
Reviewed: Care Plan, H&P, Labs, Medications, Previous Orders, Radiology Changes from previous H/P or p: No Changes Eyes: No Pain, No Vision change, No Conjunctivae inflammation, No Eyelid inflammation, No Other, No Redness ENT: No Ear pain, No Ear discharge, No Nose pain, No Nose discharge, No Nose congestion, No Mouth pain, No Mouth swelling, No Throat pain, No Throat swelling, No Other Cardiovascular: Chest Pain; No Palpitations, No Orthopnea, No Paroxysmal Noc. Dyspnea, No Edema, No Lt Headedness, No Other Respiratory: No Cough, No Dry; Shortness of breath; No SOB with excertion, No Wheezing, No Hemoptysis, No Pleuritic Pain, No Sputum; Other (SOB at rest) Gastrointestinal: No Nausea, No Vomiting, No Abdominal Pain, No Diarrhea, No Constipation, No Melena, No Hematochezia, No Other Genitourinary: No Dysuria, No Frequency, No Incontinence, No Hematuria, No Retention, No Other Musculoskeletal: No other, No neck pain, No shoulder pain, No arm pain, No back pain, No hand pain, No leg pain, No foot pain Skin: No Rash, No Lesions, No Jaundice, No Bruising, No Other Objective Vitals Vital Signs Date Time Temp Pulse Resp B/P (MAP) Pulse Ox O2 Delivery O2 Flow Rate FiO2 10/29/24 08:40 98.1 55 17 130/63 (85) 98 98.1 10/28/24 20:00 Nasal Cannula* 3 32 Intake/Output Intake and Output 10/29/24 07:00 Intake Total 755 ml Output Total 400 ml Balance 355 ml Intake Oral 755 ml Output Urine Total 400 ml # Voids 3 # Bowel Movements 1 Medications Current Medications Medications Dose Ordered Sig/Miguel Route Start Time Stop Time Status Last Admin Dose Admin Sevelamer HCl 800 mg TIDWM PO 10/26/24 12:00 10/28/24 17:00 800 MG Multivit/Ca Carb/ B Cmplx/FA/Prenat 1 tab DAILY PO 10/26/24 10:00 10/28/24 13:08 1 TAB Aspirin 81 mg DAILY PO 10/26/24 10:00 10/28/24 13:07 81 MG Atorvastatin Calcium 10 mg HS PO 10/26/24 22:00 10/28/24 21:44 10 MG Famotidine 20 mg DAILY IV 10/26/24 10:00 10/28/24 13:07 20 MG Heparin Sodium (Porcine) 5,000 units Q12HR SC 10/26/24 10:00 10/28/24 21:48 5,000 UNITS Sodium Chloride 10 ml Q8HR IV 10/26/24 14:00 10/29/24 05:25 10 ML Acetaminophen/ Hydrocodone Bitart 1 tab Q4HP PRN PO 10/26/24 08:45 Hold 10/28/24 13:07 1 TAB Ondansetron HCl 4 mg Q4HP PRN IV 10/26/24 08:45 Docusate Sodium 100 mg BIDPRN PRN PO 10/26/24 08:45 10/28/24 21:53 100 MG Acetaminophen 650 mg Q6HP PRN PO 10/26/24 08:45 Hydralazine HCl 10 mg Q6HP PRN IV 10/26/24 08:45 10/27/24 06:41 10 MG Carvedilol 6.25 mg Q12HR PO 10/26/24 10:00 10/28/24 21:45 6.25 MG Nitroglycerin 0.4 mg Q5MINP PRN SL 10/26/24 11:30 10/27/24 10:29 0.4 MG Morphine Sulfate 2 mg Q30M PRN IV 10/26/24 11:30 10/27/24 11:54 2 MG Clonidine HCl 0.3 mg TID PO 10/26/24 15:45 10/29/24 05:13 0.3 MG Amlodipine Besylate 10 mg DAILY PO 10/28/24 10:00 10/28/24 13:06 10 MG Nicotine 1 patch DAILY TD 10/28/24 10:00 10/28/24 13:16 1 PATCH Morphine Sulfate 2 mg Q4HPRN PRN IV 10/28/24 14:00 10/29/24 05:16 2 MG Laboratory Results Laboratory Tests 10/27/24 05:00 Urinalysis Test 10/26/24 12:00 Urine Color Light-yellow (Yellow) Urine Clarity Clear (Clear) Urine pH 6.0 (5.0-9.0) Urine Specific [place] 1.015 (1.001-1.035) Urine Protein 2+ (Negative) H Urine Ketones Negative (Negative) Urine Blood Negative /uL (Negative) Urine Nitrite Negative (Negative) Urine Bilirubin Negative (Negative) Urine Urobilinogen Normal mg/dL (Negative) Urine Leukocyte Esterase 1+ /uL (Negative) Urine RBC 1 /hpf (0 - 3) Urine WBC 20 /hpf (0 - 3) Urine Squamous Epithelial Cells Few /hpf (<5) Urine Bacteria None seen /hpf (None Seen) Urine Glucose Normal mg/dL (Normal) Labs and/or images reviewed: Labs reviewed by me, Image(s) reviewed by me Assessment/Plan Assessment/Plan Acute exacerbation of congestive heart failure: Lasix cardiology consult appreciated, echo 55 percent ejection fraction, no further cardiac workup ESRD on hemodialysis: Siddharth nephrology consult appreciated Chest pain troponin 107 treatment per ACS protocol Generalized weakness History of [place] Chronic current smoking: Nicotine patch and counselling Acute COPD exacerbation Hypertensive emergency Anemia of chronic disease COPD with acute exacerbation Chronic kidney disease on dialysis Time spent 50 minutes Advanced care planning time 20 minutes Patient is full code Prognosis poor Patient is hospice revoked Lives with his sister Alma Rosa [phone] in a trailer also at bedside Patient requesting to be discharged today to take care of errands at home Plan discussed with: Patient My Orders Orders - CHUNG GOODWIN MD Procedure Category Date Status Time Morphine Sulfate PHA 10/28/24 In Process Injection 14:00 Date of Service: Oct 29, 2024 Billing Provider: CHUNG GOODWIN MD Common Visit Codes: 12963-[id number] INP/OBS CARE(HIGH) CHUNG GOODWIN MD Oct 29, 2024 10:07
--- NOTE | 2024-10-29 10:11 | DVHDS2 ---
Discharge Summary Date of Admission Oct 26, 2024 at 11:29 Date of Discharge: Oct 29, 2024 Admitting Diagnosis Shortness of breaths Wounds: None Labs/Diagnostic Data: Laboratory Results Test 10/27/24 13:44 10/27/24 05:00 10/26/24 12:26 10/26/24 12:00 Troponin I High Sensitivity 83 ng/L (</=54) White Blood Count 5.4 10^3/uL (4.4-10.8) Red Blood Count 2.52 10^6/uL (4.5-5.90) Hemoglobin 7.2 g/dL (13.5-17.5) Hematocrit 21.8 % (41.0-53.0) Mean Corpuscular Volume 86.7 fL (80.0-100.0) Mean Corpuscular Hemoglobin 28.8 pg (28.0-32.0) Mean Corpuscular Hemoglobin Concent 33.2 g/dL (32.0-36.0) Red Cell Distribution Width 14.5 % (11.8-14.3) Platelet Count 242 10^3/uL (140-450) Mean Platelet Volume 9.0 fL (6.9-10.8) Neutrophils (%) (Auto) 75.5 % (37.0-80.0) Lymphocytes (%) (Auto) 10.4 % (10.0-50.0) Monocytes (%) (Auto) 6.0 % (0.0-12.0) Eosinophils (%) (Auto) 7.0 % (0.0-7.0) Basophils (%) (Auto) 1.1 % (0.0-2.0) Neutrophils # (Auto) 4.0 10 ^3/uL (1.6-8.6) Lymphocytes # (Auto) 0.6 10 ^3/uL (0.4-5.4) Monocytes # (Auto) 0.3 10 ^3/uL (0-1.3) Eosinophils # (Auto) 0.4 10 ^3/uL (0-0.8) Basophils # (Auto) 0.1 10 ^3/uL (0-0.2) Nucleated Red Blood Cells 0.0 % Sodium Level 142 mmol/L (136-145) Potassium Level 4.2 mmol/L (3.5-5.1) Chloride Level 109 mmol/L (98-107) Carbon Dioxide Level 25 mmol/L (20-31) Anion Gap 8 (5-15) Blood Urea Nitrogen 56 mg/dL (9-23) Creatinine 7.70 mg/dL (0.700-1.30) Glomerular Filtration Rate Calc 7 mL/min (>90) BUN/Creatinine Ratio 7.3 (10.0-20.0) Serum Glucose 94 mg/dL (74-106) Calcium Level 8.5 mg/dL (8.7-10.4) Total Bilirubin 0.2 mg/dL (0.2-1.0) Aspartate Amino Transferase (AST) 12 U/L (13-40) Alanine Aminotransferase (ALT) < 9 U/L (7-40) Alkaline Phosphatase 60 U/L (46-116) Total Protein 6.1 g/dL (5.7-8.2) Albumin 3.6 g/dL (3.2-4.8) POC Glucose 76 mg/dl (70-106) Urine Color Light-yellow (Yellow) Urine Clarity Clear (Clear) Urine pH 6.0 (5.0-9.0) Urine Specific [place] 1.015 (1.001-1.035) Urine Protein 2+ (Negative) Urine Ketones Negative (Negative) Urine Blood Negative /uL (Negative) Urine Nitrite Negative (Negative) Urine Bilirubin Negative (Negative) Urine Urobilinogen Normal mg/dL (Negative) Urine Leukocyte Esterase 1+ /uL (Negative) Urine RBC 1 /hpf (0 - 3) Urine WBC 20 /hpf (0 - 3) Urine Squamous Epithelial Cells Few /hpf (<5) Urine Bacteria None seen /hpf (None Seen) Urine Glucose Normal mg/dL (Normal) Test 10/26/24 07:06 B-Type Natriuretic Peptide 3094.99 pg/mL (0-100) Other Laboratory Tests 10/27/24 05:00 Brief Hx & Hospital Course: 69-year-old male with a history of [place] COPD hypertension anemia of chronic disease ESRD on hemodialysis CHF came in for shortness of breaths after missed dialysis underwent hemodialysis by Dr. Farley and improved.. Complained of chest pain troponin 107 secondary to ESRD. Patient has significantly improved of dialysis and on room air and wants to go home today to take care of air and discharged home. Reviewed all his previous home medications. No new medications. His sister Alma Rosa at bedside He will Follow up with his primary Dr and lead business analyst for dialysis Consults/Reason for consult Nephrology Dr. Farley Operations or Procedures Hemodialysis Condition at Discharge: Fair Final Diagnosis/Problems List Acute exacerbation of congestive heart failure: Lasix cardiology consult appreciated, echo 55 percent ejection fraction, no further cardiac workup ESRD on hemodialysis: Consult by Nephrology Dr. Farley. Chest pain troponin 107 treatment per ACS protocol Generalized weakness History of [place] Chronic current smoking: Nicotine patch and counselling Acute COPD exacerbation Hypertensive emergency Anemia of chronic disease COPD with acute exacerbation Chronic kidney disease on dialysis Discharge Disposition: Hospice - Home Discharge Instruct/Medications Diet: Renal Activity: Light activity Follow Up/Referral: Follow up with your primary Dr Follow up with your lead business analyst for dialysis Resume all previous home meds Medications: No new medications 39 (Time taken for discharge summary 39 minutes) Discharge Statement: "Patient was advised to return to the ER or call 911 if any headaches, dizziness, shortness of breath, chest pain, abdominal pain, bleeding, fevers, or worsening of medical condition. Patient was counseled about treatment plan, medications, possible side effects, patientverbalized understanding. All questions were answered to the best of my ability. This discharge took greater then 30 minutes in planning, reviewing documentation, counseling the patient, and discussing with other team members." ASSESSMENT ASSESSMENT Hospital Course Improved Assessment Acute exacerbation of congestive heart failure: Lasix cardiology consult appreciated, echo 55 percent ejection fraction, no further cardiac workup ESRD on hemodialysis: Consult by Nephrology Dr. Farley. Chest pain troponin 107 treatment per ACS protocol Generalized weakness History of [place] Chronic current smoking: Nicotine patch and counselling Acute COPD exacerbation Hypertensive emergency Anemia of chronic disease COPD with acute exacerbation Chronic kidney disease on dialysis Date of Service: Oct 29, 2024 Billing Provider: CHUNG GOODWIN MD Common Visit Codes: 52141-TCA/OBS DISCH DAY >30min CHUNG GOODWIN MD Oct 29, 2024 10:11
[2024-10-29 10:43] LABS: Hepatitis B Surface Antigen Negative (Negative)
[2024-10-29 12:26] LABS: Hepatitis A Ab IgM Negative; Hepatitis B Core IgM Negative (Negative)
[2024-10-29 12:29] LABS: Hepatitis C Antibody Reactive (Negative)
[2024-10-29 12:54] VITALS: BP 170/82; PULSE 65; RESP 20; TEMP 98.3; O2SAT 91
[2024-10-29 13:39] VITALS: BP 148/66; PULSE 61; RESP 19; TEMP 99.1; O2SAT 95
--- NOTE | 2024-10-29 14:12 | DVHPN2 ---
Progress Note Date Seen: Oct 29, 2024 Medical Necessity Reason Pt with a Central, PICC or Fol: No Subjective Patient reports: No new complaints, Feels better Review of Systems: HEENT:Normal, CVS:Normal, RESPIRATORY:Normal, GI:Normal, :Normal, MSK:Normal, NEURO:Normal Objective vital signs Vital Sign Date Time Temp Pulse Resp B/P (MAP) Pulse Ox O2 Delivery O2 Flow Rate FiO2 10/29/24 13:39 99.1 61 19 95 10/29/24 13:20 163/66 10/29/24 08:00 Nasal Cannula* 2 28 Total Intake and Output 10/28/24 10/28/24 10/29/24 15:00 23:00 07:00 Intake Total 590 ml 165 ml Output Total 400 ml Balance 590 ml -235 ml medications Current Medications Medications Dose Ordered Sig/Miguel Route Start Time Stop Time Status Last Admin Dose Admin Sevelamer HCl 800 mg TIDWM PO 10/26/24 12:00 10/29/24 13:13 800 MG Multivit/Ca Carb/ B Cmplx/FA/Prenat 1 tab DAILY PO 10/26/24 10:00 10/29/24 10:10 1 TAB Aspirin 81 mg DAILY PO 10/26/24 10:00 10/29/24 10:10 81 MG Atorvastatin Calcium 10 mg HS PO 10/26/24 22:00 10/28/24 21:44 10 MG Famotidine 20 mg DAILY IV 10/26/24 10:00 10/29/24 13:12 20 MG Heparin Sodium (Porcine) 5,000 units Q12HR SC 10/26/24 10:00 10/29/24 10:14 5,000 UNITS Sodium Chloride 10 ml Q8HR IV 10/26/24 14:00 10/29/24 13:16 10 ML Acetaminophen/ Hydrocodone Bitart 1 tab Q4HP PRN PO 10/26/24 08:45 Hold 10/28/24 13:07 1 TAB Ondansetron HCl 4 mg Q4HP PRN IV 10/26/24 08:45 Docusate Sodium 100 mg BIDPRN PRN PO 10/26/24 08:45 10/28/24 21:53 100 MG Acetaminophen 650 mg Q6HP PRN PO 10/26/24 08:45 Hydralazine HCl 10 mg Q6HP PRN IV 10/26/24 08:45 10/27/24 06:41 10 MG Carvedilol 6.25 mg Q12HR PO 10/26/24 10:00 10/29/24 10:11 6.25 MG Nitroglycerin 0.4 mg Q5MINP PRN SL 10/26/24 11:30 10/27/24 10:29 0.4 MG Morphine Sulfate 2 mg Q30M PRN IV 10/26/24 11:30 10/27/24 11:54 2 MG Clonidine HCl 0.3 mg TID PO 10/26/24 15:45 10/29/24 13:20 0.3 MG Amlodipine Besylate 10 mg DAILY PO 10/28/24 10:00 10/29/24 12:34 10 MG Nicotine 1 patch DAILY TD 10/28/24 10:00 10/29/24 10:10 1 PATCH Morphine Sulfate 2 mg Q4HPRN PRN IV 10/28/24 14:00 10/29/24 10:12 2 MG laboratory and microbiology Laboratory Tests 10/27/24 05:00 Test 10/27/24 05:00 Range/Units Serum Glucose 94 74-106 mg/dL Problem List/Assessment/Plan Problem List/Assessment/Plan ESRD on hemodialysis Hypertensive urgency AV fistula bleeding--resolved Acute hypoxic respiratory failure Missed dialysis/noncompliant Recommendations Dialysis tomorrow Blood pressure control Plan discussed with: Patient RIVER MCKINNON MD Oct 29, 2024 14:12
[2024-10-29 16:33] VITALS: BP 156/72; PULSE 59; RESP 16; TEMP 98.7; O2SAT 94
== END 2024-10-29 17:18 | disposition hospice, home (50) | DRG 280 ==
LOC: ER 06:27 → EDBD 06:27 → OVERFLOW 11:29 → TELE 11:40 → TELE-EAST 10-27 09:50
PROVIDERS: ADMIT Family Medicine; ATTEND Family Medicine
PROC: 5A1D70Z Performance of Urinary Filtration, Intermittent, Less than 6 Hours Per Day (ICD-10-PCS; principal; 2024-10-26)
PROC: 5A1D70Z Performance of Urinary Filtration, Intermittent, Less than 6 Hours Per Day (ICD-10-PCS; 2024-10-28)
DX: T82.838A Hemorrhage due to vascular prosthetic devices, implants and grafts, initial encounter (principal); I50.33 Acute on chronic diastolic (congestive) heart failure; I21.A1 Myocardial infarction type 2; J96.01 Acute respiratory failure with hypoxia; N18.6 End stage renal disease; J44.1 Chronic obstructive pulmonary disease with (acute) exacerbation; I16.1 Hypertensive emergency; I13.2 Hypertensive heart and chronic kidney disease with heart failure and with stage 5 chronic kidney disease, or end stage renal disease; D63.1 Anemia in chronic kidney disease; F17.210 Nicotine dependence, cigarettes, uncomplicated; Y84.1 Kidney dialysis as the cause of abnormal reaction of the patient, or of later complication, without mention of misadventure at the time of the procedure; Z99.2 Dependence on renal dialysis; Z82.49 Family history of ischemic heart disease and other diseases of the circulatory system; Z83.3 Family history of diabetes mellitus; Z91.199 Patient's noncompliance with other medical treatment and regimen due to unspecified reason; Z99.81 Dependence on supplemental oxygen; Z79.899 Other long term (current) drug therapy
CPT/HCPCS: 36415; 71045; 80048; 80053; 80074; 81001; 82962; 83880; 84484; 85025; 86850; 86900; 86901; 90935; 93005; 93306; 99291; G0378; J3490

== ENCOUNTER 2024-11-04 06:45 | Emergency (ER) | payer OTHER, MEDICAID ==
[~2024-11-04] VITALS: Ht 172.7 cm; Wt 77.0 kg
[~2024-11-04 06:45] MED LIST changes: -ALPR0.5T PO; -DOXY100C79 PO
--- NOTE | 2024-11-04 07:15 | ECG ---
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
[2024-11-04 07:29] VITALS: BP 165/74; TEMP 98.1
--- NOTE | 2024-11-04 07:32 | ED.PDOC ---
HPI Comments 69 year old male HAIM presents to the ED with chief complaint of chest pain. EMS reports that the patient had started experiencing left sided chest pain with associated SOB during dialysis today, needing to have it stopped right as it was starting. EMS relays patient was given Clonidine and Nitroglycerine in the clinic and on route they provided the patient a breathing treatment. Patient has dialysis on M//F. Patient denies any cough, fever, chills, dizziness, abdominal pain, numbness, or weakness. Chief Complaint: Chest Pain Time Seen by MD: 07:26 Primary Care Provider: NEGAR Saini Notes: Nurses Notes, Environmental Projects Advisor Notes, Medications, Allergies Allergies: Coded Allergies: NO KNOWN ALLERGIES (Unverified , 10/17/22) Home Meds Reported Medications Sevelamer Carbonate (Renvela) 800 Mg Tab, 2 TAB PO TID for 90 Days, #540 10/27/24 Alprazolam (Alprazolam) 1 Mg Tab, 1 TAB PO DAILYPRN for 30 Days, #30 10/27/24 Nifedipine (Nifedipine Er) 60 Mg Tab, 1 TAB PO DAILY 01/14/24 Tamsulosin Hcl (Tamsulosin Hcl) 0.4 Mg Cap, 1 CAP PO DAILY 01/14/24 Hydralazine Hcl (Hydralazine Hcl) 100 Mg Tab, 1 TAB PO DAILY for 30 Days, #30 01/14/24 Oxycodone W/ Acetaminophen (Percocet 5/325MG) 1 Tab Tb, 1 TAB PO QID, #120 TAB 09/07/23 Clonidine Hydrochloride (Clonidine Hcl) 0.3 Mg/24 Hr Dis, 0.3 MG PO Q8HR, MG 09/07/23 Information Source: Patient, Emergency Med Personnel Mode of Arrival: EMS Severity: Moderate Timing: Hours Duration: Since onset Prehospital treatment: Breathing Tx, NTG, Oxygen Location: Chest (L) Radiation: No Radiation Quality: Sharp Onset: At Rest Cardiac Risk Factors: HTN PE Risk Factors: None History of: Similar pain in past, MT Associated Signs and Symptoms: SOB Past Medical History PAST MEDICAL HISTORY: CHF, CKF, CVA, ESRD, HTN, MT Surgical History: Hernia Repair Family History Family History: Reviewed,noncontributory to illness Social History Smoker: Cigarettes Alcohol: Denies ETOH Use Drugs: Marijuana Lives In: Home Constitutional: denies: chills, diaphoresis, fatigue, fever, malaise, sweats, weakness, others EENTM: denies: blurred vision, double vision, ear bleeding, ear discharge, ear drainage, ear pain, ear ringing, eye pain, eye redness, hearing loss, mouth pain, mouth swelling, nasal discharge, nose bleeding, nose congestion, nose pain, photophobia, tearing, throat pain, throat swelling, voice changes, others Respiratory: reports: shortness of breath; denies: cough, hemoptysis, orthopnea, SOB at rest, SOB with excertion, stridor, wheezing, others Cardiovascular: reports: chest pain; denies: dizzy spells, diaphoresis, Dyspnea on exertion, edema, irregular heart beat, left arm pain, lightheadedness, palpitations, PND, syncope, others Gastrointestinal: denies: abdomen distended, abdominal pain, blood streaked bowels, constipated, diarrhea, dysphagia, difficulty swallowing, hematemesis, melena, nausea, poor appetite, poor fluid intake, rectal bleeding, rectal pain, vomiting, others Genitourinary: denies: burning, dysuria, flank pain, frequency, hematuria, incontinence, penile discharge, penile sore, pain, testicle pain, testicle swelling, urgency, others Neurological: denies: dizziness, fainting, headache, left sided numbness, left sided weakness, numbness, paresthesia, pre-existing deficit, right sided numbness, right sided weakness, seizure, speech problems, tingling, tremors, weakness, others Musculoskeletal: denies: back pain, gout, joint pain, joint swelling, muscle pain, muscle stiffness, neck pain, others Integumetry: denies: bruises, change in color, change in hair/nails, dryness, laceration, lesions, lumps, rash, wounds, others Allergic/Immunocompromised: denies: Difficulty Healing, Frequent Infections, Hives, Itching, others Hematologic/Lymphatic: denies: anemia, blood clots, easy bleeding, easy bruising, swollen glands, others Endocrine: denies: excessive hunger, excessive sweating, excessive thirst, excessive urination, flushing, intolerance to cold, intolerance to heat, unexplained weight gain, unexplained weight loss, others Psychiatric: denies: anxiety, bipolar disorder, depression, hopeless, panic disorder, schizophrenia, sleepless, suicidal, others All Other Systems: Reviewed and Negative Physical Exam General Appearance: Moderate Distress, Normal HEENT: Normal ENT Inspection, PERRL/EOMI Neck: Full Range of Motion, Non-Tender, Normal, Normal Inspection Respiratory: Chest Non-Tender, No Accessory Muscle Use, No Respiratory Distress, Other (Coarse breath sounds) Cardiovascular: No Edema, No JVD, No Murmur, No Gallop, Normal Peripheral Pulses, Regular Rate/Rhythm Breast Exam: Deferred Gastrointestinal: No Organomegaly, Non Tender, No Pulsatile Mass, Normal Bowel Sounds, Soft Genitalia: Deferred Pelvic: Deferred Rectal: Deferred Extremities: No calf tenderness, Normal capillary refill, Normal inspection, Normal range of motion, Non-tender, No pedal edema Musculoskeletal : Apperance: Normal Neurologic: Alert, bull rider II-XII nml as Tested, No Motor Deficits, Normal Affect, Normal Mood, No Sensory Deficits Cerebellar Function: NOT DONE Reflexes: NOT DONE Skin: Dry, Normal Color, Warm Peripheral Pulses: 3+ Radial (R), 3+ Radial (L) Lymphatic: No Adenopathy Was a procedure done? Was a procedure done?: No CP Differential Dx Differential Diagnosis: A-fib, A-Flutter, Angina, Anxiety / Panic Attack, Atrial Dysrhythmia, Electrolyte Disorder X-Ray, Labs, Meds, VS Vital Signs Date Time Temp Pulse Resp B/P (MAP) Pulse Ox O2 Delivery O2 Flow Rate FiO2 11/04/24 07:48 67 11/04/24 07:42 71 20 99 Nasal Cannula* 3 32 11/04/24 07:29 98.1 71 20 165/74 (104) 99 98.1 11/04/24 07:00 98.5 86 20 144/76 (98) 97 11/04/24 06:48 78 Lab Test 11/04/24 10:25 11/04/24 08:40 11/04/24 07:29 Range/Units Troponin I High Sensitivity 85 *H 80 *H 80 *H </=54 ng/L White Blood Count 8.8 4.4-10.8 10^3/uL Red Blood Count 2.86 L 4.5-5.90 10^6/uL Hemoglobin 8.0 L 13.5-17.5 g/dL Hematocrit 24.9 L 41.0-53.0 % Mean Corpuscular Volume 86.8 80.0-100.0 fL Mean Corpuscular Hemoglobin 28.1 28.0-32.0 pg Mean Corpuscular Hemoglobin Concent 32.4 32.0-36.0 g/dL Red Cell Distribution Width 14.8 H 11.8-14.3 % Platelet Count 269 140-450 10^3/uL Mean Platelet Volume 8.7 6.9-10.8 fL Neutrophils (%) (Auto) 72.8 37.0-80.0 % Lymphocytes (%) (Auto) 12.7 10.0-50.0 % Monocytes (%) (Auto) 6.5 0.0-12.0 % Eosinophils (%) (Auto) 7.3 H 0.0-7.0 % Basophils (%) (Auto) 0.7 0.0-2.0 % Neutrophils # (Auto) 6.4 1.6-8.6 10 ^3/uL Lymphocytes # (Auto) 1.1 0.4-5.4 10 ^3/uL Monocytes # (Auto) 0.6 0-1.3 10 ^3/uL Eosinophils # (Auto) 0.6 0-0.8 10 ^3/uL Basophils # (Auto) 0.1 0-0.2 10 ^3/uL Nucleated Red Blood Cells 0.0 % Sodium Level 139 136-145 mmol/L Potassium Level 3.9 3.5-5.1 mmol/L Chloride Level 105 98-107 mmol/L Carbon Dioxide Level 26 20-31 mmol/L Anion Gap 8 5-15 Blood Urea Nitrogen 35 H 9-23 mg/dL Creatinine 5.78 H 0.700-1.30 mg/dL Glomerular Filtration Rate Calc 10 >90 mL/min BUN/Creatinine Ratio 6.1 L 10.0-20.0 Serum Glucose 83 74-106 mg/dL Calcium Level 9.1 8.7-10.4 mg/dL Current Medications Medications (Trade) Dose Ordered Sig/Miguel Route Start Time Stop Time Status Last Admin Aspirin 325 mg ONCE ONCE PO 11/04/24 07:45 11/04/24 07:46 DC 11/04/24 07:40 Patient alert. Complaining of chest pain. Vitals stable. Answering all questions. Was given aspirin. He did not get his dialysis. Nephrology consultation. Reviewed his previous visit. Explained to the patient. Continue cardiac monitoring. EKG reviewed does not show any acute changes. Time of 1ST Reevaluation: 08:26 Reevaluation 1ST: Unchanged Patient Education/Counseling: Diagnosis, Treatment Family Education/Counseling: No Family Present Additional Information I reviewed the following notes from patient's past medical encounters: 10/26/24 for chest pain The following tests were ordered, and results were reviewed by me: Chest XR, UA, CBC, BMP, Troponin Additional Information was gathered from interviewing the following independent historians: EMS I reviewed and agreed with the following test results read by other providers: CXR I discussed treatment and results with medical personnel. Departure 1 Departure Time of Disposition: 07:34 Impression: Primary Impression: Chest pain of unknown etiology Additional Impressions: Chronic kidney disease on chronic dialysis Acute exacerbation of congestive heart failure Qualified Codes: I50.43 - Acute on chronic combined systolic (congestive) and diastolic (congestive) heart failure Disposition: ADMITTED INPATIENT Admit to: Med Surg Condition: Guarded Critical Care Note Critical Care Time?: Yes (90 min-critical care time only) Stability Stability form required: No Heart Score Heart Score: Heart Score Response (Comments) Value History Highly Suspicious 2 EKG Normal 0 Age >65 2 Risk Factors >3 or Hx ASHD 2 Troponin Normal limit 0 Total 6 I personally scribed for URSZULA PANDA MD ([email or web address]) on 11/04/24 at 07:32. Electronically submitted by Jairo Ortega [email or web address]). URSZULA PANDA MD Nov 04, 2024 07:32
[2024-11-04] MEDS: ASPirin 325 MG TAB PO ONE (07:40)
[2024-11-04 07:42] VITALS: PULSE 71; RESP 20; O2SAT 99
[2024-11-04 07:48] VITALS: PULSE 67
--- NOTE | 2024-11-04 08:09 | DVH ---
CHEST RADIOGRAPH Indication: sob Technique: Single frontal view of the chest was obtained COMPARISON: XY CHEST PORTABLE on DOS: 10/26/24, XY CHEST PORTABLE on DOS: 09/24/24, XY CHEST PORTABLE on DOS: 01/15/24, XY CHEST PORTABLE on DOS: 01/13/24 FINDINGS: Lines and Tubes: None Lungs: Congestion Pleura: No effusion. No pneumothorax. Cardiomediastinal contours: Cardiomegaly Bones: Unremarkable IMPRESSION: Pulmonary vascular congestion
[2024-11-04 08:17] LABS: Eosinophils # (auto) 0.6 10 ^3/uL (0-0.8); Lymphocytes # (auto) 1.1 10 ^3/uL (0.4-5.4); Mean Corpuscular Volume 86.8 fL (80.0-100.0); Monocytes # (auto) 0.6 10 ^3/uL (0-1.3); Neutrophils # (auto) 6.4 10 ^3/uL (1.6-8.6)
[2024-11-04 08:20] LABS: Basophils # (auto) 0.1 10 ^3/uL (0-0.2); Basophils % (auto) 0.7 % (0.0-2.0); Eosinophils % (auto) 7.3 % (0.0-7.0); Hematocrit 24.9 % (41.0-53.0); Lymphocytes % (auto) 12.7 % (10.0-50.0); Mean Corpuscular Hemoglobin 28.1 pg (28.0-32.0); Mean Corpuscular Hgb Conc. 32.4 g/dL (32.0-36.0); Monocytes % (auto) 6.5 % (0.0-12.0); Neutrophils % (auto) 72.8 % (37.0-80.0); Platelet Count (auto) 269 10^3/uL (140-450); Red Blood Cells 2.86 10^6/uL (4.5-5.90); Red Cell Distribution Width 14.8 % (11.8-14.3); White Blood Cell 8.8 10^3/uL (4.4-10.8)
[2024-11-04 08:24] LABS: Chloride 105 mmol/L (98-107); Potassium 3.9 mmol/L (3.5-5.1); Sodium 139 mmol/L (136-145)
[2024-11-04 08:25] LABS: Anion Gap 8 (5-15); Calcium 9.1 mg/dL (8.7-10.4); Carbon Dioxide 26 mmol/L (20-31)
[2024-11-04 08:30] LABS: BUN/Creatinine Ratio 6.1 (10.0-20.0); Blood Urea Nitrogen 35 mg/dL (9-23); Glucose 83 mg/dL (74-106)
[2024-11-04 13:19] LABS: Urine Bacteria None Seen /hpf (None Seen)
[2024-11-04 14:14] LABS: Urine Blood Negative /uL (Negative); Urine Clarity Clear (Clear); Urine Color Light-Yellow (Yellow); Urine Protein, UAD 2+ (Negative); Urine Specific Gravity 1.012 (1.001-1.035); Urine Squamous Epithelial Cell None Seen /hpf (<5); Urine Urobilinogen Normal (Negative); Urine WBC 23 /hpf (0 - 3)
--- NOTE | 2024-11-04 19:03 | ECG ---
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
== END 2024-11-04 14:04 | disposition left against medical advice (07) ==
LOC: EDBD 06:45 → ER 06:45
DX: I13.2 Hypertensive heart and chronic kidney disease with heart failure and with stage 5 chronic kidney disease, or end stage renal disease (principal); N18.6 End stage renal disease; I50.43 Acute on chronic combined systolic (congestive) and diastolic (congestive) heart failure; Z99.2 Dependence on renal dialysis; R07.9 Chest pain, unspecified; R06.02 Shortness of breath; F17.210 Nicotine dependence, cigarettes, uncomplicated; Z98.890 Other specified postprocedural states; Z86.73 Personal history of transient ischemic attack (TIA), and cerebral infarction without residual deficits
CPT/HCPCS: 36415; 71045; 80048; 81001; 84484; 85025; 93005; 99291; 99292

== ENCOUNTER 2024-11-05 19:52 | Inpatient (IN) | payer OTHER, MEDICAID ==
[~2024-11-05] VITALS: Ht 170.2 cm; Wt 74.1 kg
[2024-11-05] MEDS: cloNIDine HCL 0.1 MG TAB PO ONE (20:20)
--- NOTE | 2024-11-05 20:30 | ED.PDOC ---
Musculoskeletal HPI Comments 69 M presents to the ED with bleeding from right upper arm dialysis fistula since 4 pm this afternoon. He states he woke up with bleeding. Denies any injury to the area. He presents with sock tied around fistual and no oxygen. He reports LH, SOB for the past one hour. He has dialysis MWF. He is on 3L oxygen at baseline . Patient is on clonidine 0.3 mg, hydralazine 100mg TID. He reports not taking any of his blood pressure medications today. Blood pressure is elevated in triage. Chief Complaint: Upper Extremity Time Seen by MD: 20:00 Primary Care Provider: NEGAR Reviewed Notes: Nurses Notes Allergies: Coded Allergies: NO KNOWN ALLERGIES (Unverified , 10/17/22) Home Meds Reported Medications Sevelamer Carbonate (Renvela) 800 Mg Tab, 2 TAB PO TID for 90 Days, #540 10/27/24 Alprazolam (Alprazolam) 1 Mg Tab, 1 TAB PO DAILYPRN for 30 Days, #30 10/27/24 Nifedipine (Nifedipine Er) 60 Mg Tab, 1 TAB PO DAILY 01/14/24 Tamsulosin Hcl (Tamsulosin Hcl) 0.4 Mg Cap, 1 CAP PO DAILY 01/14/24 Hydralazine Hcl (Hydralazine Hcl) 100 Mg Tab, 1 TAB PO DAILY for 30 Days, #30 01/14/24 Oxycodone W/ Acetaminophen (Percocet 5/325MG) 1 Tab Tb, 1 TAB PO QID, #120 TAB 09/07/23 Clonidine Hydrochloride (Clonidine Hcl) 0.3 Mg/24 Hr Dis, 0.3 MG PO Q8HR, MG 09/07/23 Mode of Arrival: Ambulatory Review of Systems: REVIEW OF SYSTEMS: No fever, no chills, or fatigue HEENT: No sore throat, no earache, no congestion, no neck pain. Cardiac: Positive chest pain. No palpitations. Lungs: Positive shortness of breath, no cough. GI: No nausea, no vomiting, no diarrhea, no constipation, no abdominal pain : No dysuria, frequency, or urgency. No hematuria. Musculoskeletal: No joint pain , no joint swelling, no extremity edema. Skin: Bleeding wound Neuro: No headache, no dizziness, no weakness Vital Signs Vital Signs Date Time Temp Pulse Resp B/P (MAP) Pulse Ox O2 Delivery O2 Flow Rate FiO2 1/17/25 00:00 75 18 163/66 (98) 98 11/05/24 20:15 98.3 98.3 Physical Exam General: Awake, alert and oriented. No acute distress. Skin: Skin in warm, dry and intact. Appropriate color for ethnicity. HEENT: The head is normocephalic and atraumatic. Conjunctivae are clear without exudates or hemorrhage. Sclera is non-icteric. EOM are intact. No signs of nystagmus. Eyelids are normal in appearance without swelling or lesions. Oral mucosa is pink and moist Neck: The neck is supple with normal range of motion. Cardiac: Heart rate and rhythm are normal. No murmurs, gallops, or rubs are aus cultated. Respiratory: No signs of respiratory distress. Lung sounds are clear in all lobes bilaterally without rales, ronchi, or wheezes. Abdominal: Abdomen is soft, non-tender without distention. Bowel sounds are present and normoactive in all four quadrants. Extremities: Left upper extremity: Arterial bleeding from puncture site over medial humerus fistula. Good radial pulse and capillary refil. Neurological: The patient is awake, alert and oriented to person, place, and time with normal speech. Speech is clear. There is no facial asymmetry. Psychiatric: Appropriate mood and affect. Good judgement and insight. No visual or auditory hallucinations. Past Medical History PAST MEDICAL HISTORY: CHF, CKF, CVA, ESRD, HTN, [place] Surgical History: Hernia Repair Family History Family History: Reviewed,noncontributory to illness Social History Smoker: Cigarettes Alcohol: Denies ETOH Use Drugs: Marijuana Lives In: Home Constitutional: reports: others EENTM: reports: others Cardiovascular: reports: others Genitourinary: reports: others Neurological: reports: others Musculoskeletal: reports: others Integumetry: reports: others Allergic/Immunocompromised: reports: others Hematologic/Lymphatic: reports: others Endocrine: reports: others Psychiatric: reports: others Unable to Obtain due to: Other Physical Exam General Appearance: Other HEENT: Other Neck: Other Respiratory: Other Cardiovascular: Other Breast Exam: Other Gastrointestinal: Other Genitalia: Other Pelvic: Other Rectal: Other Extremities: Other Neurologic: Other Cerebellar Function: Other Reflexes: Other Skin: Other Lymphatic: Other Was a procedure done? Was a procedure done?: No EKG EKG : Comments Independent interpretation sinus rhythm at a rate of 71, T-wave inversions in the inferior leads, V5 to V6. No STEMI. Differential Diagnosis EXT Differential Diagnosis: Other X-Ray, Labs, Meds, VS Vital Signs Date Time Temp Pulse Resp B/P (MAP) Pulse Ox O2 Delivery O2 Flow Rate FiO2 11/06/24 00:00 75 18 163/66 (98) 98 11/05/24 23:11 71 11/05/24 23:09 196/73 11/05/24 23:08 72 20 196/73 11/05/24 22:56 184/75 11/05/24 22:00 72 22 173/66 (101) 93 11/05/24 21:25 195/79 11/05/24 20:20 213/87 11/05/24 20:15 98.3 67 19 213/87 (129) 93 98.3 11/05/24 19:52 98.4 68 20 216/125 (155) 97 Lab Test 11/05/24 23:20 11/05/24 21:39 Range/Units Troponin I High Sensitivity 75 *H 75 *H </=54 ng/L White Blood Count 9.7 4.4-10.8 10^3/uL Red Blood Count 2.77 L 4.5-5.90 10^6/uL Hemoglobin 7.8 L 13.5-17.5 g/dL Hematocrit 24.5 L 41.0-53.0 % Mean Corpuscular Volume 88.2 80.0-100.0 fL Mean Corpuscular Hemoglobin 28.2 28.0-32.0 pg Mean Corpuscular Hemoglobin Concent 32.0 32.0-36.0 g/dL Red Cell Distribution Width 15.1 H 11.8-14.3 % Platelet Count 281 140-450 10^3/uL Mean Platelet Volume 8.1 6.9-10.8 fL Neutrophils (%) (Auto) 78.7 37.0-80.0 % Lymphocytes (%) (Auto) 8.0 L 10.0-50.0 % Monocytes (%) (Auto) 5.6 0.0-12.0 % Eosinophils (%) (Auto) 6.6 0.0-7.0 % Basophils (%) (Auto) 1.1 0.0-2.0 % Neutrophils # (Auto) 7.7 1.6-8.6 10 ^3/uL Lymphocytes # (Auto) 0.8 0.4-5.4 10 ^3/uL Monocytes # (Auto) 0.5 0-1.3 10 ^3/uL Eosinophils # (Auto) 0.6 0-0.8 10 ^3/uL Basophils # (Auto) 0.1 0-0.2 10 ^3/uL Nucleated Red Blood Cells 0.0 % Prothrombin Time 10.3 9.3-11.8 sec Prothrombin Time INR 0.97 0.9-1.15 Sodium Level 138 136-145 mmol/L Potassium Level 4.8 3.5-5.1 mmol/L Chloride Level 108 H 98-107 mmol/L Carbon Dioxide Level 22 20-31 mmol/L Anion Gap 8 5-15 Blood Urea Nitrogen 51 #H 9-23 mg/dL Creatinine 7.38 H 0.700-1.30 mg/dL Glomerular Filtration Rate Calc 7 >90 mL/min BUN/Creatinine Ratio 6.9 L 10.0-20.0 Serum Glucose 90 74-106 mg/dL Calcium Level 9.1 8.7-10.4 mg/dL Total Bilirubin < 0.2 L 0.2-1.0 mg/dL Aspartate Amino Transferase (AST) 16 13-40 U/L Alanine Aminotransferase (ALT) 10 7-40 U/L Alkaline Phosphatase 70 46-116 U/L Total Protein 6.7 5.7-8.2 g/dL Albumin 3.9 3.2-4.8 g/dL Current Medications Medications (Trade) Dose Ordered Sig/Miguel Route Start Time Stop Time Status Last Admin Hydralazine HCl (Apresoline Injection) 10 mg ONCE ONCE IV 11/05/24 20:15 11/05/24 20:16 DC 11/05/24 23:09 Clonidine HCl (Catapres Tablet) 0.2 mg ONCE ONCE PO 11/05/24 20:15 11/05/24 20:17 DC 11/05/24 20:20 Hydralazine HCl (Apresoline Tablet) 100 mg ONCE ONCE PO 11/05/24 21:15 11/05/24 21:16 DC 11/05/24 21:25 Morphine Sulfate 2 mg ONCE ONCE IV 11/05/24 23:00 11/05/24 23:01 DC 11/05/24 23:08 Ondansetron HCl (Zofran) 4 mg ONCE ONCE IV 11/05/24 23:00 11/05/24 23:01 DC 11/05/24 23:10 Time of 1ST Reevaluation: 00:58 Reevaluation 1ST: Improved Patient Education/Counseling: Diagnosis, Treatment, Other (Need for admission) Family Education/Counseling: No Family Present Departure 1 Departure Time of Disposition: 22:06 Impression: Primary Impression: Hypertensive urgency Additional Impressions: Hemorrhage of surgically-created arteriovenous fistula Anemia Disposition: 09 ADMITTED INPATIENT Condition: Stable Comments 69 M presents with bleeding dialysis fistula.Pressuer dressing placed on fistula. Patient transfered to ED bed where direct pressure and antihypertensive administered . 20:[address] Ortiz, vascular surgeon.Recommendation is hold pressure for 45 minutes. If bleeding is not controlled he will see patient in ED. 21:45 Dr Ortiz in the ED to repair bleeding fistula Patient anemic, reporting chest pain, due for dialysis tomorrow. Patient admitted for further treatment, evaluation and monitoring. Critical Care Note Critical Care Time?: No Stability Stability form required: No Heart Score Heart Score: Heart Score Response (Comments) Value History N/A 0 EKG N/A 0 Age N/A 0 Risk Factors N/A 0 Troponin N/A 0 Total 0 BONG WILLIS MD Nov 05, 2024 20:30
[2024-11-05] MEDS: hydrALAZINE HCL 25 MG TAB PO ONE (21:25)
[2024-11-05 21:56] LABS: Basophils # (auto) 0.1 10 ^3/uL (0-0.2); Lymphocytes # (auto) 0.8 10 ^3/uL (0.4-5.4)
[2024-11-05 21:57] LABS: Basophils % (auto) 1.1 % (0.0-2.0); Eosinophils # (auto) 0.6 10 ^3/uL (0-0.8); Eosinophils % (auto) 6.6 % (0.0-7.0); Hematocrit 24.5 % (41.0-53.0); Hemoglobin 7.8 g/dL (13.5-17.5); Mean Corpuscular Hemoglobin 28.2 pg (28.0-32.0); Mean Corpuscular Volume 88.2 fL (80.0-100.0); Monocytes # (auto) 0.5 10 ^3/uL (0-1.3); Monocytes % (auto) 5.6 % (0.0-12.0); Neutrophils # (auto) 7.7 10 ^3/uL (1.6-8.6); Neutrophils % (auto) 78.7 % (37.0-80.0); Platelet Count (auto) 281 10^3/uL (140-450); Red Blood Cells 2.77 10^6/uL (4.5-5.90); Red Cell Distribution Width 15.1 % (11.8-14.3); White Blood Cell 9.7 10^3/uL (4.4-10.8)
[2024-11-05 22:00] VITALS: PULSE 68; RESP 22; O2SAT 96
[2024-11-05 22:14] LABS: Alanine Aminotransferase 10 U/L (7-40); Albumin 3.9 g/dL (3.2-4.8); Alkaline Phosphatase 70 U/L (46-116); Anion Gap 8 (5-15); Aspartate Aminotransferase 16 U/L (13-40); BUN/Creatinine Ratio 6.9 (10.0-20.0); Calcium 9.1 mg/dL (8.7-10.4); Carbon Dioxide 22 mmol/L (20-31); Glucose 90 mg/dL (74-106); Potassium 4.8 mmol/L (3.5-5.1); Sodium 138 mmol/L (136-145); Total Protein 6.7 g/dL (5.7-8.2)
[2024-11-05 22:19] LABS: INR 0.97 (0.9-1.15); Prothrombin Time 10.3 sec (9.3-11.8)
[2024-11-05 22:26] LABS: Bilirubin, Total < 0.2 mg/dL (0.2-1.0); Blood Urea Nitrogen 51 mg/dL (9-23); Chloride 108 mmol/L (98-107)
--- NOTE | 2024-11-05 22:30 | DVHCONRES ---
Date Seen: Nov 05, 2024 Resident Creating Document: SHARLA PERSON Jr., MD Referring Physician er Reason for Consultation Bleeding left AV fistula History of Present Illness 69 M presents to the ED with bleeding from right upper arm dialysis fistula since 4 pm this afternoon. He presents with sock tied around and no oxygen. He has dialysis MWF. He is on 3L oxygen at baseline . Patient is on clonidine 0.3 mg, hydralazine 100mg TID. He reports not taking any of his blood pressure medications today. Blood pressure is elevated in triage. Manual pressure was held in the emergency room for over an hour with no change in the bleeding. I was called in to see this patient. Upon evaluation. There was a puncture site in a pseudoaneurysm with a scab over it that was actively bleeding. The area was cleansed in a sterile fashion while manual pressure was being held. 3-0 nylon suture interrupted suture was placed in a vertical mattress fashion. This stopped the bleeding. There was an area of fresh granulating tissue which was reapproximated as well with 2 other 3-0 interrupted nylon sutures. Patient tolerated this well there was no further bleeding there was positive thrill and bruit in the fistula a light dressing was applied including gauze followed by Ricardo wrap. Patient tolerated the procedure well no hemodynamic changes were noted during this procedure. Past Medical History CHF, CKF, CVA, ESRD, HTN, [place] Past Surgical History Left AV fistula, hernia repair Family History: Arthritis G8 MOTHER Cardiovascular disease G8 FATHER Diabetes mellitus G8 MOTHER G8 FATHER Social History Nonsmoker nondrinker. Allergies: Coded Allergies: NO KNOWN ALLERGIES (Unverified , 10/17/22) Home Meds Reported Medications Sevelamer Carbonate (Renvela) 800 Mg Tab, 2 TAB PO TID for 90 Days, #540 10/27/24 Alprazolam (Alprazolam) 1 Mg Tab, 1 TAB PO DAILYPRN for 30 Days, #30 10/27/24 Nifedipine (Nifedipine Er) 60 Mg Tab, 1 TAB PO DAILY 01/14/24 Tamsulosin Hcl (Tamsulosin Hcl) 0.4 Mg Cap, 1 CAP PO DAILY 01/14/24 Hydralazine Hcl (Hydralazine Hcl) 100 Mg Tab, 1 TAB PO DAILY for 30 Days, #30 01/14/24 Oxycodone W/ Acetaminophen (Percocet 5/325MG) 1 Tab Tb, 1 TAB PO QID, #120 TAB 09/07/23 Clonidine Hydrochloride (Clonidine Hcl) 0.3 Mg/24 Hr Dis, 0.3 MG PO Q8HR, MG 09/07/23 Review of Systems All systems reviewed otherwise negative then as in the HPi Vital Signs Vital Signs Date Time Temp Pulse Resp B/P (MAP) Pulse Ox O2 Delivery O2 Flow Rate FiO2 11/05/24 21:25 195/79 11/05/24 19:52 98.4 68 20 97 Physical Exam Head eyes ears nose and throat exam eyes are nonicteric conjunctiva is pink neck was supple no JVD no carotid bruits lungs are clear to auscultation heart was regular rate and rhythm abdomen is soft and nontender with no pulsatile abdominal mass or bruits lower extremities palpable femoral pulses nonpalpable pedal pulses trace edema bilaterally. The left arm AV fistula has a good thrill and bruit. After the above procedure noted in the HPI no further bleeding noted. Labs/Diagnostic Data Labs Test 11/05/24 21:39 Range/Units White Blood Count 9.7 4.4-10.8 10^3/uL Red Blood Count 2.77 L 4.5-5.90 10^6/uL Hemoglobin 7.8 L 13.5-17.5 g/dL Hematocrit 24.5 L 41.0-53.0 % Mean Corpuscular Volume 88.2 80.0-100.0 fL Mean Corpuscular Hemoglobin 28.2 28.0-32.0 pg Mean Corpuscular Hemoglobin Concent 32.0 32.0-36.0 g/dL Red Cell Distribution Width 15.1 H 11.8-14.3 % Platelet Count 281 140-450 10^3/uL Mean Platelet Volume 8.1 6.9-10.8 fL Neutrophils (%) (Auto) 78.7 37.0-80.0 % Lymphocytes (%) (Auto) 8.0 L 10.0-50.0 % Monocytes (%) (Auto) 5.6 0.0-12.0 % Eosinophils (%) (Auto) 6.6 0.0-7.0 % Basophils (%) (Auto) 1.1 0.0-2.0 % Neutrophils # (Auto) 7.7 1.6-8.6 10 ^3/uL Lymphocytes # (Auto) 0.8 0.4-5.4 10 ^3/uL Monocytes # (Auto) 0.5 0-1.3 10 ^3/uL Eosinophils # (Auto) 0.6 0-0.8 10 ^3/uL Basophils # (Auto) 0.1 0-0.2 10 ^3/uL Nucleated Red Blood Cells 0.0 % Prothrombin Time 10.3 9.3-11.8 sec Prothrombin Time INR 0.97 0.9-1.15 Sodium Level 138 136-145 mmol/L Potassium Level 4.8 3.5-5.1 mmol/L Chloride Level 108 H 98-107 mmol/L Carbon Dioxide Level 22 20-31 mmol/L Anion Gap 8 5-15 Blood Urea Nitrogen 51 #H 9-23 mg/dL Creatinine 7.38 H 0.700-1.30 mg/dL Glomerular Filtration Rate Calc 7 >90 mL/min BUN/Creatinine Ratio 6.9 L 10.0-20.0 Serum Glucose 90 74-106 mg/dL Calcium Level 9.1 8.7-10.4 mg/dL Total Bilirubin < 0.2 L 0.2-1.0 mg/dL Aspartate Amino Transferase (AST) 16 13-40 U/L Alanine Aminotransferase (ALT) 10 7-40 U/L Alkaline Phosphatase 70 46-116 U/L Total Protein 6.7 5.7-8.2 g/dL Albumin 3.9 3.2-4.8 g/dL Assessment Status post repair of a left AV fistula bleeding site. Resume dialysis via alternative sites other than the area where the suture was as well as avoid the area of a scab in the more proximal portion of the AV fistula. We will leave sutures in place for 2 weeks. ER is going to continue to monitor for any further bleeding. Patient is scheduled for dialysis tomorrow. Plan/Recommendation Status post repair of a left AV fistula bleeding site. Resume dialysis via alternative sites other than the area where the suture was as well as avoid the area of a scab in the more proximal portion of the AV fistula. We will leave sutures in place for 2 weeks. ER is going to continue to monitor for any further bleeding. Patient is scheduled for dialysis tomorrow. Plan discussed with: Patient SHARLA PERSON Jr., MD Nov 05, 2024 22:30
[2024-11-05] MEDS: MORPHINE SULFATE INJ 2 MG/ml SYRG IV ONE (23:08)
[2024-11-05] MEDS: hydrALAZINE HCL 20 MG/ML VL IV ONE (23:09)
[2024-11-05] MEDS: ONDANSETRON HCL 4 MG/2 ML VIAL IV ONE (23:10)
[2024-11-06] MEDS ORDERED: DOCUSATE SOD 100 MG CAP PO PRN (01:45)
[2024-11-06] MEDS ORDERED: HYDROcodone-ACET 5/325MG TAB PO PRN (01:45)
[2024-11-06] MEDS ORDERED: ACETAMINOPHEN 325 MG TAB PO PRN (01:45)
--- NOTE | 2024-11-06 02:58 | DVHHP2 ---
History of Present Illness Reason for Visit: Hypertensive urgency History of Present Illness The patient is a 69-year-old male with past medical history of CHF, CVA, PA, hypertension, and end-stage renal disease on hemodialysis MWF presented to [facility] ED for evaluation of bleeding from right upper arm dialysis fistula. Patient reports he woke with bleeding, denies any trauma to the right arm, experiencing shortness of breaths, generalized weakness, elevated blood pressure that prompted this visit. Patient was seen and evaluated in the ED, laboratory data shows WBC 9.7, hemoglobin 7.8, hematocrit 24.5, platelets 281, sodium 138, potassium 4.8, BUN 51, creatinine 7.38, GFR 7, glucose 90, tr oponin 75, blood pressure 216/125 trending down to 165/63, heart rate 72, temperature 98.3 F, O2 saturation 98% oxygen. Please see medication orders section in the computer. On my assessment, patient denied chest pain, no headache, no dizziness, no diaphoresis, currently on oxygen, no nausea, no vomiting, no fever, no chills. Patient was admitted for further evaluation and medical management. Past Medical History CHF, CKF, CVA, ESRD, HTN, [place] Past Surgical History Hernia Repair Family History Reviewed, noncontributory to the management of this case. Past Social History The patient lives at home, smokes cigarettes, denies alcohol use, uses marijuana. Review of Systems Constitutional: Yes: Weakness; No: Fever, Chills, Sweats, Malaise, Other Eyes: No: Pain, Vision change, Conjunctivae inflammation, Eyelid inflammation, Other, Redness ENT: No: Ear pain, Ear discharge, Nose pain, Nose discharge, Nose congestion, Mouth pain, Mouth swelling, Throat pain, Throat swelling, Other Respiratory: Shortness of breath; No: Cough, Dry, SOB with excertion, Wheezing, Hemoptysis, Pleuritic Pain, Sputum, Wheezing, Other Cardiovascular: No: Chest Pain, Palpitations, Orthopnea, Paroxysmal Noc. Dyspnea, Edema, Lt Headedness, Other Gastrointestinal: No: Nausea, Vomiting, Abdominal Pain, Diarrhea, Constipation, Melena, Hematochezia, Other Genitourinary: No Dysuria, No Frequency, No Incontinence, No Hematuria, No Retention, No Other Musculoskeletal: No: other, neck pain, shoulder pain, arm pain, back pain, hand pain, leg pain, foot pain Skin: Other (Right arm AV fistula); No: Rash, Lesions, Jaundice, Bruising Neurological: No: Weakness, Numbness, Incoordination, Change in speech, Confusion, Seizures, Other Allergies: Coded Allergies: NO KNOWN ALLERGIES (Unverified , 10/17/22) Medications Current Medications Medications Dose Ordered Sig/Miguel Route Start Time Stop Time Status Last Admin Dose Admin Aspirin 81 mg DAILY PO 11/06/24 10:00 Atorvastatin Calcium 10 mg HS PO 11/06/24 22:00 Hydralazine HCl 10 mg Q6HP PRN IV 11/06/24 01:45 Multivit/Ca Carb/ B Cmplx/FA/Prenat 1 tab DAILY PO 11/06/24 10:00 Sevelamer HCl 800 mg TIDWM PO 11/06/24 08:00 Nifedipine 60 mg DAILY PO 11/06/24 10:00 Sodium Chloride 10 ml Q8HR IV 11/06/24 06:00 Acetaminophen/ Hydrocodone Bitart 1 tab Q4HP PRN PO 11/06/24 01:45 Ondansetron HCl 4 mg Q4HP PRN IV 11/06/24 01:45 Docusate Sodium 100 mg BIDPRN PRN PO 11/06/24 01:45 Acetaminophen 650 mg Q6HP PRN PO 11/06/24 01:45 Exam Vital Signs Vital Signs Date Time Temp Pulse Resp B/P (MAP) Pulse Ox O2 Delivery O2 Flow Rate FiO2 11/06/24 00:58 71 16 165/63 11/06/24 00:00 98 11/05/24 22:00 Room Air* 0 21 21 11/05/24 20:15 98.3 98.3 General Appearance: Alert, Oriented X3, Cooperative, No acute distress HEENT: Atraumatic, PERRLA, EOMI, Mucous membr. moist/pink Respiratory: Normal air movement, Other (Diminished breath sounds) Cardiovascular: Regular rate, Normal S1, Normal S2, No murmurs Abdominal: Normal bowel sounds, Soft, No tenderness, No hepatospenomegaly, No masses Extremities: No clubbing, No cyanosis, No edema, Normal pulses, No tenderness/swelling Skin: No rashes, No breakdown, No significant lesion Neuro: Normal speech, Normal tone, Sensation intact, Cranial nerves 3-12 NL, Reflexes 2+, Other (Generalized weakness) Psych/Mental Status: Mental status NL, Mood NL Labs/Xrays Labs Test 11/05/24 23:20 11/05/24 21:39 Range/Units Troponin I High Sensitivity 75 *H </=54 ng/L White Blood Count 9.7 4.4-10.8 10^3/uL Red Blood Count 2.77 L 4.5-5.90 10^6/uL Hemoglobin 7.8 L 13.5-17.5 g/dL Hematocrit 24.5 L 41.0-53.0 % Mean Corpuscular Volume 88.2 80.0-100.0 fL Mean Corpuscular Hemoglobin 28.2 28.0-32.0 pg Mean Corpuscular Hemoglobin Concent 32.0 32.0-36.0 g/dL Red Cell Distribution Width 15.1 H 11.8-14.3 % Platelet Count 281 140-450 10^3/uL Mean Platelet Volume 8.1 6.9-10.8 fL Neutrophils (%) (Auto) 78.7 37.0-80.0 % Lymphocytes (%) (Auto) 8.0 L 10.0-50.0 % Monocytes (%) (Auto) 5.6 0.0-12.0 % Eosinophils (%) (Auto) 6.6 0.0-7.0 % Basophils (%) (Auto) 1.1 0.0-2.0 % Neutrophils # (Auto) 7.7 1.6-8.6 10 ^3/uL Lymphocytes # (Auto) 0.8 0.4-5.4 10 ^3/uL Monocytes # (Auto) 0.5 0-1.3 10 ^3/uL Eosinophils # (Auto) 0.6 0-0.8 10 ^3/uL Basophils # (Auto) 0.1 0-0.2 10 ^3/uL Nucleated Red Blood Cells 0.0 % Prothrombin Time 10.3 9.3-11.8 sec Prothrombin Time INR 0.97 0.9-1.15 Sodium Level 138 136-145 mmol/L Potassium Level 4.8 3.5-5.1 mmol/L Chloride Level 108 H 98-107 mmol/L Carbon Dioxide Level 22 20-31 mmol/L Anion Gap 8 5-15 Blood Urea Nitrogen 51 #H 9-23 mg/dL Creatinine 7.38 H 0.700-1.30 mg/dL Glomerular Filtration Rate Calc 7 >90 mL/min BUN/Creatinine Ratio 6.9 L 10.0-20.0 Serum Glucose 90 74-106 mg/dL Calcium Level 9.1 8.7-10.4 mg/dL Total Bilirubin < 0.2 L 0.2-1.0 mg/dL Aspartate Amino Transferase (AST) 16 13-40 U/L Alanine Aminotransferase (ALT) 10 7-40 U/L Alkaline Phosphatase 70 46-116 U/L Total Protein 6.7 5.7-8.2 g/dL Albumin 3.9 3.2-4.8 g/dL Assessment/Plan Assessment/Plan Hypertensive urgency Hemorrhage of surgically-created arteriovenous fistula Elevated troponin Anemia of chronic disease Generalized weakness End-stage renal disease on hemodialysis Plan 1. Admit to telemetry unit 2. Breathing treatment 3. Pain control management 4. Management of fluids and electrolytes 5. Consultation for Nephrology 6. Diagnostic tests-chest x-ray 7. DVT prophylaxis-on aspirin 8. Repeat labs CBC, CMP in a.m. 9. Continue with current medical management 10. Treatment plan discussed with patient and RN. Patient verbalized understanding. Plan discussed with: Patient, Other (RN) My Orders Orders - NOREEN BHATT DNP Procedure Category Date Status Time Complete Blood Count LAB 11/06/24 Logged 04:00 Comprehensive LAB 11/06/24 Logged Metabolic Panel 04:00 Aspirin Tablet PHA 11/06/24 In Process 10:00 Atorvastatin (Lipitor) PHA 11/06/24 In Process 22:00 Hydralazine Injection PHA 11/06/24 In Process (Apresoline Inject 01:45 B-Complex W/ C & PHA 11/06/24 In Process Folic Tablet 10:00 Sevelamer (Renagel) PHA 11/06/24 In Process 08:00 *Dr[facility] CONS 11/06/24 Transmitted -[place] 01:37 Nifedipine Er PHA 11/06/24 In Process (Procardia Xl 10:00 Allergies RAÚL 11/06/24 In Process 01:37 Code Status CODE 11/06/24 Transmitted 01:37 Renal DIET 11/06/24 Transmitted Standard(2gna,3gk,Lopho) Breakfast Sodium Chloride Lock PHA 11/06/24 In Process (Saline Lock Ns) 06:00 Oxygen Per Hour RT 11/06/24 Transmitted 01:37 Hydrocodone-Acet PHA 11/06/24 In Process 5/325mg Tab ([place] 01:45 Ondansetron Hcl PHA 11/06/24 In Process (Zofran) 01:45 Docusate Sodium PHA 11/06/24 In Process Capsule (Colace 01:45 Complete Blood Count LAB 11/07/24 Verified 04:00 Comprehensive LAB 11/07/24 Verified Metabolic Panel 04:00 Condition: Serious RAÚL 11/06/24 In Process 01:37 Acetaminophen Tablet PHA 11/06/24 In Process (Tylenol Tablet) 01:45 Bedrest With Bathroom RAÚL 11/06/24 In Process Privileg 01:37 Sequential RAÚL 11/06/24 In Process Compression Device Admit ADMIT 11/06/24 Transmitted 02:55 Nitroglycerin [facility] 11/06/24 Transmitted Sublingual (Ntrostat 03:00 Morphine Sulfate PHA 11/06/24 Transmitted Injection 03:00 Notify Md Of Changes [facility] 11/06/24 Transmitted From Base 02:55 Poultry Farm Manager For [facility] 11/06/24 Transmitted 24 Hours 02:55 Emergency Dysrhythmia [facility] 11/06/24 Transmitted Protocol 02:55 Rhythm Strips Once [facility] 11/06/24 Transmitted Every Shift 02:55 Oxygen By Nasal RT 11/06/24 Transmitted Cannula 02:55 Problem List: (1) Hypertensive urgency (2) Hemorrhage of surgically-created arteriovenous fistula (3) Anemia of chronic disease (4) Elevated troponin (5) Generalized weakness (6) End-stage renal disease on hemodialysis Date of Service: Nov 06, 2024 Billing Provider: NOREEN BHATT DNP Common Visit Codes: [id number] INP/OBS CARE (HIGH) NOREEN BHATT DNP Nov 06, 2024 02:58
[2024-11-06] MEDS ORDERED: NITROGLYCERIN 0.4 MG SL TAB SL PRN (03:00)
[2024-11-06] MEDS: MORPHINE SULFATE INJ 2 MG/ml SYRG IV PRN (04:07)
[2024-11-06] MEDS: hydrALAZINE HCL 20 MG/ML VL IV PRN (04:50)
[2024-11-06] MEDS: SODIUM CHLOR 0.9% PF (SALINE LOCK) 10ML VIAL/SYR IV SCH (06:19)
--- NOTE | 2024-11-06 07:02 | ECG ---
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
[2024-11-06 07:25] LABS: Basophils # (auto) 0.1 10 ^3/uL (0-0.2); Basophils % (auto) 0.8 % (0.0-2.0); Eosinophils # (auto) 0.6 10 ^3/uL (0-0.8); Eosinophils % (auto) 6.6 % (0.0-7.0); Hematocrit 22.9 % (41.0-53.0); Hemoglobin 7.6 g/dL (13.5-17.5); Lymphocytes # (auto) 0.8 10 ^3/uL (0.4-5.4); Lymphocytes % (auto) 8.5 % (10.0-50.0); Mean Corpuscular Hemoglobin 28.9 pg (28.0-32.0); Mean Corpuscular Volume 87.5 fL (80.0-100.0); Monocytes # (auto) 0.5 10 ^3/uL (0-1.3); Monocytes % (auto) 5.4 % (0.0-12.0); Neutrophils # (auto) 7.3 10 ^3/uL (1.6-8.6); Neutrophils % (auto) 78.7 % (37.0-80.0); Platelet Count (auto) 271 10^3/uL (140-450); Red Blood Cells 2.61 10^6/uL (4.5-5.90); Red Cell Distribution Width 14.9 % (11.8-14.3); White Blood Cell 9.2 10^3/uL (4.4-10.8)
[2024-11-06 07:45] LABS: Albumin 3.8 g/dL (3.2-4.8); Alkaline Phosphatase 66 U/L (46-116); Anion Gap 10 (5-15); Aspartate Aminotransferase 15 U/L (13-40); Calcium 9.1 mg/dL (8.7-10.4); Carbon Dioxide 21 mmol/L (20-31); Chloride 107 mmol/L (98-107); Glucose 77 mg/dL (74-106); Sodium 138 mmol/L (136-145)
[2024-11-06 07:46] LABS: Total Protein 6.3 g/dL (5.7-8.2)
[2024-11-06 07:51] LABS: Alanine Aminotransferase < 9 U/L (7-40); Bilirubin, Total < 0.2 mg/dL (0.2-1.0); Blood Urea Nitrogen 55 mg/dL (9-23); Potassium 5.1 mmol/L (3.5-5.1)
[2024-11-06 08:06] LABS: Magnesium 2.2 mg/dL (1.6-2.6)
[2024-11-06 08:07] LABS: Phosphorus 6.7 mg/dL (2.4-5.1)
[2024-11-06] MEDS: SEVELAMER 800 MG TAB PO SCH (08:14)
[2024-11-06] MEDS: ONDANSETRON HCL 4 MG/2 ML VIAL IV PRN (09:38)
[2024-11-06] MEDS: B-COMPLEX W/ C & FOLIC ACID(NEPHROVITE TAB) PO SCH (09:57)
[2024-11-06] MEDS: ASPirin 81 mg TAB PO SCH (09:57)
[2024-11-06] MEDS: cloNIDine HCL 0.1 MG TAB PO ONE (09:58)
[2024-11-06] MEDS: NIFEdipine ER 30 MG TAB PO SCH (09:58)
[2024-11-06] MEDS: cloNIDine HCL 0.1 MG TAB PO SCH (14:28)
[2024-11-06] MEDS: BUMETANIDE INJECTION 25 MG in GIVE UN-DILUTED 0 ML IV SCH (15:11)
[2024-11-06] MEDS ORDERED: CLON0.3T46 PO (16:17)
[2024-11-06] MEDS ORDERED: SERT-289 PO (16:17)
--- NOTE | 2024-11-06 18:18 | DVHPNRES ---
Progress Note Date Seen: Nov 06, 2024 Resident Creating Document: RANJAN SZYMANSKI RESIDENT Medical Necessity Reason Pt with a Central, PICC or Fol: No Subjective Review of Systems Patient is a 69-year-old male with a past medical history of end-stage renal disease on dialysis Saturday, heart failure with preserved ejection fraction, COPD on 3 L oxygen at home, hypertension came to the ED with a chief complaint of bleeding from the right arm dialysis fistula which started spontaneously around 4:00 p.m. yesterday. Patient socks around and tried to put a bandage but it did not help. Patient also reports chest pain which is on the left side, nonradiating, occurred at rest sit to be a similar chest pain for which he was admitted last week the hospital. Past medical history: ESRD on dialysis MWF, Hfpef, coronary artery disease, COPD Past surgical history: Left AV fistula, hernia repair Social history: Patient denies current smoking, alcohol, drug use Home medications: Clonidine 0.3 mg t.i.d., hydralazine 100 mg t.i.d., nifedipine 60 mg, sevelamer 800 mg t.i.d., tamsulosin 0.4 mg Review of systems Patient was seen by vascular surgeon in the morning who repaired the left AV fistula bleeding site. At the time of examination patient reported [id number] chest pain on the left side. Pain in the left AV fistula region Reports no shortness of breath at home O2 of 3 liters/minute Objective vital signs Vital Sign Date Time Temp Pulse Resp B/P (MAP) Pulse Ox O2 Delivery O2 Flow Rate FiO2 11/06/24 17:36 62 18 155/58 (90) 98 11/05/24 22:00 Room Air* 0 21 21 11/05/24 20:15 98.3 98.3 medications Current Medications Medications Dose Ordered Sig/Imguel Route Start Time Stop Time Status Last Admin Dose Admin Aspirin 81 mg DAILY PO 11/06/24 10:00 11/06/24 09:57 81 MG Atorvastatin Calcium 10 mg HS PO 11/06/24 22:00 Sevelamer HCl 800 mg TIDWM PO 11/06/24 08:00 11/06/24 12:27 800 MG Sodium Chloride 10 ml Q8HR IV 11/06/24 06:00 11/06/24 14:25 10 ML Ondansetron HCl 4 mg Q4HP PRN IV 11/06/24 01:45 11/06/24 09:38 4 MG Acetaminophen 650 mg Q6HP PRN PO 11/06/24 01:45 Nitroglycerin 0.4 mg Q5MINP PRN SL 11/06/24 03:00 Morphine Sulfate 2 mg Q30M PRN IV 11/06/24 03:00 11/06/24 16:08 2 MG Clonidine HCl 0.3 mg TID PO 11/06/24 14:00 11/06/24 14:28 0.3 MG Bumetanide 25 mg/ Miscellaneous 100 ml @ 4 mls/hr Q24H IV 11/06/24 14:00 11/06/24 15:11 4 MLS/HR Hydralazine HCl 100 mg Q8HR PO 11/06/24 22:00 Examination Physical Examination Constitutional: Patient is alert and oriented to time, place and person and is not in any acute respiratory distress Gen - mild conjunctival pallor, no icterus, no cyanosis, no clubbing, no LAD, no edema . Skin - Patients skin is warm and dry.. HEENT - normocephalic, atraumatic, moist mucous membranes. Neck - full ROM, no LAD, no JVD. Pulmonary - B/L vesicular breath sounds. no crackles , no wheezing, no stridor. cardiovascular - normal S1,S2 heard. no murmurs heard. peripheral pulses normal radial 2+, pedal 2+. capillary refill normal <2 secs. GI - soft abdomen without tenderness to palpation . no hepatospleenomegaly. Bowel sounds normoactive Neurological - Bilateral upper extremity strength 4/5, bilateral lower extremity strength 4/5, no facial droop, normal speech, no tremor, no sensory deficiets. laboratory and microbiology Laboratory Tests 11/06/24 06:04 Test 11/06/24 06:04 Range/Units Serum Glucose 77 74-106 mg/dL Problem List/Assessment/Plan Problem List/Assessment/Plan Assessment Left AV fistula bleeding ESRD Hypertensive urgency Acute chest pain, rule out ACS Plan - vascular surgeon consulted left AV fistula bleeding site repaired and draped in sterile dressing. Can be used for Dialysis - nephrology consulted for end-stage renal disease for dialysis which is planned for tomorrow Patient is started on Bumex drip - patient is continued on hydralazine 100 mg t.i.d. and clonidine 0.3 mg t.i.d. - ECG reviewed and is not showing signs of acute ST segment or T-wave changes, troponins mildly elevated in 70s, likely demand supply mismatch. Goals of care discussed with the patient for over 25 minutes. Full code Plan discussed with Plan discussed with: Patient My Orders My Orders Orders - RANJAN SZYMANSKI Procedure Category Date Status Time Clonidine Hcl Tablet PHA 11/06/24 In Process (Catapres Tablet) 14:00 Hydralazine Hcl PHA 11/06/24 In Process Tablet (Apresoline 22:00 Date of Service: Nov 06, 2024 Billing Provider: MILENA ELIZABETH MD Common Visit Codes: [id number] INP/OBS CARE(HIGH) RANJAN SZYMANSKI Nov 06, 2024 18:18 MILENA ELIZABETH MD Nov 06, 2024 21:08
[2024-11-06 18:30] VITALS: BP 176/67; PULSE 65; RESP 18; TEMP 97.7; O2SAT 93
--- NOTE | 2024-11-06 19:04 | DVHINCON2 ---
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 his blood pressure was also very when he came here greater than 200 / 100 patient has multiple admissions for hypertensive emergency questionable compliance with meds currently his bleeding has stopped and vascular surgery recommendations noted Past Medical History As per HPI Past Surgical History As per HPI Allergies: Coded Allergies: NO KNOWN ALLERGIES (Unverified , 10/17/22) Home Meds Reported Medications Sertraline HCl (Sertraline HCl) 50 Mg Tab, 50 MG PO DAILY, TAB 11/06/24 Clonidine Hydrochloride (Clonidine Hydrochloride) 0.3 Mg Tab, 0.3 MG PO TID, TAB 11/06/24 Sevelamer Carbonate (Renvela) 800 Mg Tab, 2 TAB PO TIDWM for 90 Days, #540 10/27/24 Alprazolam (Alprazolam) 1 Mg Tab, 1 TAB PO DAILYPRN PRN for ANXIETY for 30 Days, #30 10/27/24 Nifedipine (Nifedipine Er) 60 Mg Tab, 1 TAB PO DAILY 01/14/24 Tamsulosin Hcl (Tamsulosin Hcl) 0.4 Mg Cap, 1 CAP PO DAILY 01/14/24 Hydralazine Hcl (Hydralazine Hcl) 100 Mg Tab, 1 TAB PO DAILY for 30 Days, #30 01/14/24 Discontinued Reported Medications Clonidine Hydrochloride (Clonidine Hcl) 0.3 Mg/24 Hr Dis, 0.3 MG PO Q8HR, MG 09/07/23 Current Medications Current Medications Medications (Trade) Dose Ordered Sig/Miguel Route PRN Reason Start Time Stop Time Status Last Admin Aspirin 81 mg DAILY PO 11/06/24 10:00 11/06/24 09:57 Atorvastatin Calcium (Lipitor) 10 mg HS PO 11/06/24 22:00 Hydralazine HCl (Apresoline Injection) 10 mg Q6HP PRN IV SBP>150 11/06/24 01:45 11/06/24 12:50 DC 11/06/24 08:03 Multivit/Ca Carb/ B Cmplx/FA/Prenat (Nephro-Kelly Tablet) 1 tab DAILY PO 11/06/24 10:00 11/06/24 12:50 DC 11/06/24 09:57 Sevelamer HCl (Renagel) 800 mg TIDWM PO 11/06/24 08:00 11/06/24 12:27 Nifedipine (Procardia Xl (Time-Release)) 60 mg DAILY PO 11/06/24 10:00 11/06/24 12:50 DC 11/06/24 09:58 Sodium Chloride (Saline Lock Ns) 10 ml Q8HR IV 11/06/24 06:00 11/06/24 14:25 Acetaminophen/ Hydrocodone Bitart ([place] 5/325MG Tab) 1 tab Q4HP PRN PO MODERATE PAIN (4-6 PAIN SCALE) 11/06/24 01:45 11/06/24 12:50 DC Ondansetron HCl (Zofran) 4 mg Q4HP PRN IV NAUSEA / VOMITING 11/06/24 01:45 11/06/24 09:38 Docusate Sodium (Colace Capsule) 100 mg BIDPRN PRN PO FOR CONSTIPATION 11/06/24 01:45 11/06/24 12:50 DC Acetaminophen (Tylenol Tablet) 650 mg Q6HP PRN PO PAIN SCALE 1-3 OR TEMP>100.4 11/06/24 01:45 Nitroglycerin (Ntrostat Sublingual) 0.4 mg Q5MINP PRN SL FOR CHEST PAIN 11/06/24 03:00 Morphine Sulfate 2 mg Q30M PRN IV FOR CHEST PAIN 11/06/24 03:00 11/06/24 16:08 Hydralazine HCl (Apresoline Tablet) 100 mg Q12HR PO 11/06/24 22:00 11/06/24 16:50 DC Clonidine HCl (Catapres Tablet) 0.3 mg TID PO 11/06/24 14:00 11/06/24 14:28 Bumetanide 25 mg/ Miscellaneous 100 ml @ 4 mls/hr Q24H IV 11/06/24 14:00 11/06/24 15:11 Hydralazine HCl (Apresoline Tablet) 100 mg Q8HR PO 11/06/24 22:00 Family History: Arthritis G8 MOTHER Cardiovascular disease G8 FATHER Diabetes mellitus G8 MOTHER G8 FATHER Review of Systems Negative except for HPI H&P Exam Vital Signs/I&O Vital Sign Date Time Temp Pulse Resp B/P (MAP) Pulse Ox O2 Delivery O2 Flow Rate FiO2 11/06/24 17:36 62 18 155/58 (90) 98 11/05/24 22:00 Room Air* 0 21 21 11/05/24 20:15 98.3 98.3 Physical Exam General-not in any distress HEENT-normocephalic, no icterus, no pallor, neck supple Respiratory-fair air entry bilateral, no rhonchi, no wheeze [id number] heard, Abdominal-soft, nontender, nondistended Musculoskeletal positive pedal edema, no calf tenderness Genitourinary-deferred Neuro-awake alert oriented x3, Psychiatric-not agitated, cooperative, Labs/Diagnostic Data Labs/Diagnostic Data Laboratory Tests Test 11/06/24 06:04 11/05/24 23:20 11/05/24 21:39 Range/Units White Blood Count 9.2 9.7 4.4-10.8 10^3/uL Red Blood Count 2.61 L 2.77 L 4.5-5.90 10^6/uL Hemoglobin 7.6 L 7.8 L 13.5-17.5 g/dL Hematocrit 22.9 L 24.5 L 41.0-53.0 % Mean Corpuscular Volume 87.5 88.2 80.0-100.0 fL Mean Corpuscular Hemoglobin 28.9 28.2 28.0-32.0 pg Mean Corpuscular Hemoglobin Concent 33.0 32.0 32.0-36.0 g/dL Red Cell Distribution Width 14.9 H 15.1 H 11.8-14.3 % Platelet Count 271 281 140-450 10^3/uL Mean Platelet Volume 8.5 8.1 6.9-10.8 fL Neutrophils (%) (Auto) 78.7 78.7 37.0-80.0 % Lymphocytes (%) (Auto) 8.5 L 8.0 L 10.0-50.0 % Monocytes (%) (Auto) 5.4 5.6 0.0-12.0 % Eosinophils (%) (Auto) 6.6 6.6 0.0-7.0 % Basophils (%) (Auto) 0.8 1.1 0.0-2.0 % Neutrophils # (Auto) 7.3 7.7 1.6-8.6 10 ^3/uL Lymphocytes # (Auto) 0.8 0.8 0.4-5.4 10 ^3/uL Monocytes # (Auto) 0.5 0.5 0-1.3 10 ^3/uL Eosinophils # (Auto) 0.6 0.6 0-0.8 10 ^3/uL Basophils # (Auto) 0.1 0.1 0-0.2 10 ^3/uL Nucleated Red Blood Cells 0.0 0.0 % Sodium Level 138 138 136-145 mmol/L Potassium Level 5.1 4.8 3.5-5.1 mmol/L Chloride Level 107 108 H 98-107 mmol/L Carbon Dioxide Level 21 22 20-31 mmol/L Anion Gap 10 8 5-15 Blood Urea Nitrogen 55 H 51 #H 9-23 mg/dL Creatinine 7.87 H 7.38 H 0.700-1.30 mg/dL Glomerular Filtration Rate Calc 7 7 >90 mL/min BUN/Creatinine Ratio 7.0 L 6.9 L 10.0-20.0 Serum Glucose 77 90 74-106 mg/dL Calcium Level 9.1 9.1 8.7-10.4 mg/dL Phosphorus Level 6.7 H 2.4-5.1 mg/dL Magnesium Level 2.2 1.6-2.6 mg/dL Total Bilirubin < 0.2 L < 0.2 L 0.2-1.0 mg/dL Aspartate Amino Transferase (AST) 15 16 13-40 U/L Alanine Aminotransferase (ALT) < 9 10 7-40 U/L Alkaline Phosphatase 66 70 46-116 U/L Total Protein 6.3 6.7 5.7-8.2 g/dL Albumin 3.8 3.9 3.2-4.8 g/dL Troponin I High Sensitivity 75 *H 75 *H </=54 ng/L Prothrombin Time 10.3 9.3-11.8 sec Prothrombin Time INR 0.97 0.9-1.15 Assessment ESRD on dialysis Bleeding from AVF status post intervention by vascular surgery currently resolved Hypertensive emergency Anemia Recommendations Planning for dialysis tomorrow if staffing permits Bumex drip Blood pressure control Epogen with dialysis Plan discussed with: Other RIVER MCKINNON MD Nov 06, 2024 19:04
[2024-11-06 20:00] VITALS: PULSE 62
[2024-11-06 21:00] VITALS: BP 173/48; PULSE 73; RESP 16; TEMP 98.5; O2SAT 98
[2024-11-06] MEDS: NITROGLYCERIN 0.4 MG SL TAB SL ONE (21:35)
[2024-11-06] MEDS ORDERED: hydrALAZINE HCL 25 MG TAB PO SCH (22:00)
[2024-11-06] MEDS: MORPHINE SULFATE INJ 2 MG/ml SYRG IV ONE (22:44)
[2024-11-06] MEDS: hydrALAZINE HCL 25 MG TAB PO SCH (23:33)
[2024-11-06] MEDS: ATORVASTATIN 20 MG TAB PO SCH (23:35)
[2024-11-07] VITALS (8 sets, daily range): BP systolic 155–221; BP diastolic 48–86; PULSE 65–77; RESP 16–21; TEMP 97.6–98.7; O2SAT 92–97
[2024-11-07] MEDS ORDERED: SODIUM CHL 0.9% 1000 ML BAG XX ONE (07:00)
--- NOTE | 2024-11-07 08:20 | DVHPN2 ---
Progress Note Date Seen: Nov 07, 2024 Medical Necessity Reason Pt with a Central, PICC or Fol: No Subjective Patient reports: No new complaints Review of Systems: Deferred Objective vital signs Vital Sign Date Time Temp Pulse Resp B/P (MAP) Pulse Ox O2 Delivery O2 Flow Rate FiO2 11/07/24 06:33 218/66 11/07/24 05:00 97.9 74 18 92 97.9 11/06/24 20:00 Nasal Cannula* 3 32 Total Intake and Output 11/06/24 11/06/24 11/07/24 15:00 23:00 07:00 Intake Total 8 ml 705 ml Output Total 475 ml Balance 8 ml 230 ml medications Current Medications Medications Dose Ordered Sig/Miguel Route Start Time Stop Time Status Last Admin Dose Admin Aspirin 81 mg DAILY PO 11/06/24 10:00 11/06/24 09:57 81 MG Atorvastatin Calcium 10 mg HS PO 11/06/24 22:00 Sevelamer HCl 800 mg TIDWM PO 11/06/24 08:00 11/06/24 12:27 800 MG Sodium Chloride 10 ml Q8HR IV 11/06/24 06:00 11/07/24 06:34 10 ML Ondansetron HCl 4 mg Q4HP PRN IV 11/06/24 01:45 11/06/24 09:38 4 MG Acetaminophen 650 mg Q6HP PRN PO 11/06/24 01:45 Clonidine HCl 0.3 mg TID PO 11/06/24 14:00 11/07/24 06:33 0.3 MG Bumetanide 25 mg/ Miscellaneous 100 ml @ 4 mls/hr Q24H IV 11/06/24 14:00 11/06/24 15:11 4 MLS/HR Hydralazine HCl 100 mg Q8HR PO 11/06/24 22:00 11/07/24 06:32 100 MG Nifedipine 60 mg DAILY PO 11/07/24 10:00 UNV Examination: GENERAL:Abnormal, MSK:Abnormal, SKIN:Abnormal, NEURO:Normal laboratory and microbiology Laboratory Tests 11/06/24 06:04 Test 11/06/24 06:04 Range/Units Serum Glucose 77 74-106 mg/dL Problem List/Assessment/Plan Problem List/Assessment/Plan ESRD on dialysis Bleeding from AVF status post intervention by vascular surgery currently resolved Hypertensive emergency Anemia Recommendations Planning for dialysis today Bumex drip Blood pressure control Epogen with dialysis Plan discussed with: Patient My Orders My Orders Orders - RIVER MCKINNON MD Procedure Category Date Status Time Give Un-Diluted PHA 11/06/24 In Process (Gi... W/Bumetanide 14:00 Hemodialysis Orders ORDERS 11/07/24 Transmitted 07:00 Dialysis Nursing RAÚL 11/07/24 In Process Message 07:00 Document Fluid Input RAÚL 11/07/24 In Process And Outpu 07:00 Epoetin Willard-Epbx PHA 11/07/24 In Process (Retacrit) 21:00 RIVER MCKINNON MD Nov 07, 2024 08:20
[2024-11-07] MEDS: MORPHINE SULFATE INJ 2 MG/ml SYRG IV ONE (08:47)
[2024-11-07 10:44] LABS: Basophils # (auto) 0.1 10 ^3/uL (0-0.2); Basophils % (auto) 1.1 % (0.0-2.0); Eosinophils # (auto) 0.4 10 ^3/uL (0-0.8); Eosinophils % (auto) 4.7 % (0.0-7.0); Hematocrit 23.3 % (41.0-53.0); Hemoglobin 7.4 g/dL (13.5-17.5); Lymphocytes # (auto) 0.5 10 ^3/uL (0.4-5.4); Lymphocytes % (auto) 5.5 % (10.0-50.0); Mean Corpuscular Hemoglobin 28.3 pg (28.0-32.0); Mean Corpuscular Volume 88.5 fL (80.0-100.0); Monocytes # (auto) 0.5 10 ^3/uL (0-1.3); Monocytes % (auto) 5.6 % (0.0-12.0); Neutrophils # (auto) 7.4 10 ^3/uL (1.6-8.6); Neutrophils % (auto) 83.1 % (37.0-80.0); Platelet Count (auto) 285 10^3/uL (140-450); Red Blood Cells 2.63 10^6/uL (4.5-5.90); White Blood Cell 8.9 10^3/uL (4.4-10.8)
[2024-11-07 10:52] LABS: Albumin 3.8 g/dL (3.2-4.8); Alkaline Phosphatase 67 U/L (46-116); Anion Gap 9 (5-15); Aspartate Aminotransferase 13 U/L (13-40); BUN/Creatinine Ratio 6.4 (10.0-20.0); Calcium 8.9 mg/dL (8.7-10.4); Carbon Dioxide 21 mmol/L (20-31); Chloride 107 mmol/L (98-107); Sodium 137 mmol/L (136-145); Total Protein 6.4 g/dL (5.7-8.2)
[2024-11-07 10:53] LABS: Alanine Aminotransferase < 9 U/L (7-40); Bilirubin, Total < 0.2 mg/dL (0.2-1.0); Blood Urea Nitrogen 56 mg/dL (9-23); Glucose 127 mg/dL (74-106)
[2024-11-07] MEDS: NIFEdipine ER 30 MG TAB PO SCH (11:40)
[2024-11-07] MEDS: HYDROmorphone HCL 2 MG/ML VL/or syr IV PRN (13:33)
--- NOTE | 2024-11-07 15:00 | DVHPNRES ---
Progress Note Date Seen: Nov 07, 2024 Resident Creating Document: JHAJRANJAN Santiago RESIDENT Medical Necessity Reason Pt with a Central, PICC or Fol: No Subjective Review of Systems LV fistula covered in a sterile dressing and a bandage At the time of examination patient reported mild intermittent chest pressure on the left side. Pain in the left AV fistula region has reduced since yesterday Reports no shortness of breath at O2 of 3 liters/minute Objective vital signs Vital Sign Date Time Temp Pulse Resp B/P (MAP) Pulse Ox O2 Delivery O2 Flow Rate FiO2 11/07/24 13:33 67 18 221/86 11/07/24 13:00 98.0 97 98.0 11/07/24 08:00 Nasal Cannula* 3 32 Total Intake and Output 11/06/24 11/06/24 11/07/24 15:00 23:00 07:00 Intake Total 8 ml 705 ml Output Total 475 ml Balance 8 ml 230 ml medications Current Medications Medications Dose Ordered Sig/Miguel Route Start Time Stop Time Status Last Admin Dose Admin Aspirin 81 mg DAILY PO 11/06/24 10:00 11/07/24 08:45 81 MG Sevelamer HCl 800 mg TIDWM PO 11/06/24 08:00 11/07/24 11:40 800 MG Sodium Chloride 10 ml Q8HR IV 11/06/24 06:00 11/07/24 13:33 10 ML Ondansetron HCl 4 mg Q4HP PRN IV 11/06/24 01:45 11/06/24 09:38 4 MG Acetaminophen 650 mg Q6HP PRN PO 11/06/24 01:45 Clonidine HCl 0.3 mg TID PO 11/06/24 14:00 11/07/24 13:32 0.3 MG Bumetanide 25 mg/ Miscellaneous 100 ml @ 4 mls/hr Q24H IV 11/06/24 14:00 11/06/24 15:11 4 MLS/HR Hydralazine HCl 100 mg Q8HR PO 11/06/24 22:00 11/07/24 13:32 100 MG Nifedipine 60 mg DAILY PO 11/07/24 10:00 11/07/24 11:40 60 MG Atorvastatin Calcium 40 mg HS PO 11/07/24 22:00 Hydromorphone HCl 0.25 mg Q6HPRN PRN IV 11/07/24 10:15 11/07/24 13:33 0.25 MG Examination Physical Examination Constitutional: Patient is alert and oriented to time, place and person and is not in any acute respiratory distress Gen - mild conjunctival pallor, no icterus, no cyanosis, no clubbing, no LAD, no edema . Skin - Patients skin is warm and dry.. HEENT - normocephalic, atraumatic, moist mucous membranes. Neck - full ROM, no LAD, no JVD. Pulmonary - B/L vesicular breath sounds. no crackles , no wheezing, no stridor. cardiovascular - normal S1,S2 heard. no murmurs heard. GI - soft abdomen without tenderness to palpation . no hepatospleenomegaly. Bowel sounds normoactive Neurological - Bilateral upper extremity strength 4/5, bilateral lower extremity strength 4/5, no facial droop, normal speech, no tremor, no sensory deficiets. laboratory and microbiology Laboratory Tests 11/07/24 10:21 Test 11/07/24 10:21 Range/Units Serum Glucose 127 H 74-106 mg/dL Microbiology Date/Time Source Procedure Growth Status 11/06/24 20:45 Nose MRSA Screen - Final Complete Problem List/Assessment/Plan Problem List/Assessment/Plan Assessment Left AV fistula bleeding ESRD Hypertensive urgency Acute chest pain, rule out ACS Plan - vascular surgeon consulted left AV fistula bleeding site repaired and draped in sterile dressing. Can be used for Dialysis - nephrology consulted for end-stage renal disease for dialysis which is planned for today - Patient is continued on Bumex drip - patient is continued on hydralazine 100 mg t.i.d. and clonidine 0.3 mg t.i.d and nifedipine 60mg qd - ECG reviewed and is not showing signs of acute ST segment or T-wave changes, troponins mildly elevated in 70s, likely demand supply mismatch. - dilaudid 0.25mg q6prn for pain control Goals of care discussed with the patient for over 19 minutes. Full code Plan discussed with Plan discussed with: Patient My Orders My Orders Orders - RANJAN SZYMANSKI RESIDENT Procedure Category Date Status Time Hydralazine Hcl PHA 11/06/24 In Process Tablet (Apresoline 22:00 Nifedipine Er PHA 11/07/24 In Process (Procardia Xl 10:00 Atorvastatin (Lipitor) PHA 11/07/24 In Process 22:00 Hydromorphone PHA 11/07/24 In Process Injection (Dilaudid 10:15 Date of Service: Nov 07, 2024 Billing Provider: ZAHRA MARADIAGA MD Common Visit Codes: [id number] INP/OBS CARE(HIGH) RANJAN SZYMANSKI RESIDENT Nov 07, 2024 15:00 ZAHRA MARADIAGA MD Nov 07, 2024 23:11
[2024-11-07] MEDS: EPOETIN ALFA-EPBX 10,000 UNIT/1ML VIAL SC ONE (21:00)
[2024-11-07] MEDS: ATORVASTATIN 20 MG TAB PO SCH (22:31)
[2024-11-08] VITALS (8 sets, daily range): BP systolic 133–172; BP diastolic 54–92; PULSE 58–76; RESP 17–19; TEMP 97.9–98.6; O2SAT 92–97
[2024-11-08 06:11] LABS: Basophils # (auto) 0.1 10 ^3/uL (0-0.2); Basophils % (auto) 0.6 % (0.0-2.0); Eosinophils # (auto) 0.3 10 ^3/uL (0-0.8); Eosinophils % (auto) 2.9 % (0.0-7.0); Hemoglobin 8.5 g/dL (13.5-17.5); Lymphocytes # (auto) 0.3 10 ^3/uL (0.4-5.4); Lymphocytes % (auto) 3.5 % (10.0-50.0); Mean Corpuscular Hemoglobin 27.9 pg (28.0-32.0); Mean Corpuscular Hgb Conc. 32.8 g/dL (32.0-36.0); Mean Corpuscular Volume 85.1 fL (80.0-100.0); Monocytes # (auto) 0.9 10 ^3/uL (0-1.3); Monocytes % (auto) 8.6 % (0.0-12.0); Neutrophils # (auto) 8.4 10 ^3/uL (1.6-8.6); Neutrophils % (auto) 84.4 % (37.0-80.0); Platelet Count (auto) 317 10^3/uL (140-450); Red Blood Cells 3.06 10^6/uL (4.5-5.90); Red Cell Distribution Width 14.7 % (11.8-14.3)
[2024-11-08 06:21] LABS: Anion Gap 10 (5-15); Calcium 9.6 mg/dL (8.7-10.4); Carbon Dioxide 26 mmol/L (20-31); Chloride 101 mmol/L (98-107); Potassium 4.1 mmol/L (3.5-5.1); Sodium 137 mmol/L (136-145)
[2024-11-08 06:27] LABS: BUN/Creatinine Ratio 6.6 (10.0-20.0)
[2024-11-08 06:33] LABS: Blood Urea Nitrogen 45 mg/dL (9-23); Glucose 111 mg/dL (74-106)
--- NOTE | 2024-11-08 13:50 | DVHPN2 ---
Subjective The patient is seen and examined at bedside. No complaint today. Reviewed: Care Plan, H&P, Labs, Medications, Previous Orders, Radiology Changes from previous H/P or p: No Changes Eyes: No Pain, No Vision change, No Conjunctivae inflammation, No Eyelid inflammation, No Other, No Redness ENT: No Ear pain, No Ear discharge, No Nose pain, No Nose discharge, No Nose congestion, No Mouth pain, No Mouth swelling, No Throat pain, No Throat swelling, No Other Cardiovascular: No Chest Pain, No Palpitations, No Orthopnea, No Paroxysmal Noc. Dyspnea, No Edema, No Lt Headedness, No Other Respiratory: No Cough, No Dry; Shortness of breath; No SOB with excertion, No Wheezing, No Hemoptysis, No Pleuritic Pain, No Sputum, No Other Gastrointestinal: No Nausea, No Vomiting, No Abdominal Pain, No Diarrhea, No Constipation, No Melena, No Hematochezia, No Other Genitourinary: No Dysuria, No Frequency, No Incontinence, No Hematuria, No Retention, No Other Musculoskeletal: No other, No neck pain, No shoulder pain, No arm pain, No back pain, No hand pain, No leg pain, No foot pain Skin: No Rash, No Lesions, No Jaundice, No Bruising; Other (Right arm AV fistula) Objective Vitals Vital Signs Date Time Temp Pulse Resp B/P (MAP) Pulse Ox O2 Delivery O2 Flow Rate FiO2 11/08/24 09:13 67 18 146/42 11/08/24 09:00 98.4 94 98.4 11/08/24 08:00 Nasal Cannula* 3 32 Intake/Output Intake and Output 11/08/24 07:00 Intake Total 1150 ml Output Total 1495 ml Balance -345 ml Intake Oral 1150 ml Output Urine Total 1495 ml # Bowel Movements 1 General Appearance: Alert, Oriented X3, Cooperative, No acute distress HEENT: Atraumatic, PERRLA, EOMI, Mucous membr. moist/pink Neck: Supple Lungs: Clear to auscultation, Normal air movement Cardiovascular: Regular rate, Normal S1, Normal S2, No murmurs, Gallops, Rubs Abdomen: Normal bowel sounds, Soft, No tenderness Neuro: Cranial nerves 3-12 NL Psych/Mental Status: Mental status NL Medications Current Medications Medications Dose Ordered Sig/Miguel Route Start Time Stop Time Status Last Admin Dose Admin Aspirin 81 mg DAILY PO 11/06/24 10:00 11/08/24 09:11 81 MG Sevelamer HCl 800 mg TIDWM PO 11/06/24 08:00 11/08/24 09:10 800 MG Sodium Chloride 10 ml Q8HR IV 11/06/24 06:00 11/07/24 22:00 10 ML Ondansetron HCl 4 mg Q4HP PRN IV 11/06/24 01:45 11/08/24 04:31 4 MG Acetaminophen 650 mg Q6HP PRN PO 11/06/24 01:45 Clonidine HCl 0.3 mg TID PO 11/06/24 14:00 11/08/24 05:19 0.3 MG Bumetanide 25 mg/ Miscellaneous 100 ml @ 4 mls/hr Q24H IV 11/06/24 14:00 11/06/24 15:11 4 MLS/HR Hydralazine HCl 100 mg Q8HR PO 11/06/24 22:00 11/08/24 05:19 100 MG Nifedipine 60 mg DAILY PO 11/07/24 10:00 11/08/24 09:11 60 MG Atorvastatin Calcium 40 mg HS PO 11/07/24 22:00 11/07/24 22:31 40 MG Hydromorphone HCl 0.25 mg Q6HPRN PRN IV 11/07/24 10:15 11/08/24 09:13 0.25 MG Laboratory Results Laboratory Tests 11/08/24 05:43 Chemistry Test 11/08/24 05:43 Calcium Level 9.6 mg/dL (8.7-10.4) Microbiology Microbiology Date/Time Source Procedure Growth Status 11/06/24 20:45 Nose MRSA Screen - Final Complete Labs and/or images reviewed: Labs reviewed by me Assessment/Plan Assessment/Plan Left AV fistula bleeding ESRD Hypertensive urgency Acute chest pain, rule out ACS Plan - vascular surgeon consulted left AV fistula bleeding site repaired and draped in sterile dressing. Can be used for Dialysis - nephrology consulted for end-stage renal disease for dialysis which is planned for today - Patient is continued on Bumex drip - patient is continued on hydralazine 100 mg t.i.d. and clonidine 0.3 mg t.i.d and nifedipine 60mg qd - ECG reviewed and is not showing signs of acute ST segment or T-wave changes, troponins mildly elevated in 70s, likely demand supply mismatch. - dilaudid 0.25mg q6prn for pain control Continuing current management This medical document was created using an electronic medical record system with [employer] direct computerized dictation system. Although this document has been carefully reviewed, there may still be some phonetic and typographical errors. These areas are purely typographical due to imperfections of the software programs, and do not reflect any compromise in the patient's medical care. Plan discussed with: Patient Date of Service: Nov 08, 2024 Billing Provider: ZAHRA MARADIAGA MD Common Visit Codes: [id number] INP/OBS CARE(HIGH) ZAHRA MARADIAGA MD Nov 08, 2024 13:50
--- NOTE | 2024-11-08 17:31 | DVHPN2 ---
Progress Note Date Seen: Nov 08, 2024 Medical Necessity Reason Pt with a Central, PICC or Fol: No Subjective Patient reports: No new complaints Review of Systems: Deferred Objective vital signs Vital Sign Date Time Temp Pulse Resp B/P (MAP) Pulse Ox O2 Delivery O2 Flow Rate FiO2 11/08/24 17:09 98.6 67 18 133/55 (81) 92 98.6 11/08/24 08:00 Nasal Cannula* 3 32 Total Intake and Output 11/07/24 11/07/24 11/08/24 15:00 23:00 07:00 Intake Total 750 ml 400 ml Output Total 400 ml 320 ml 775 ml Balance -400 ml 430 ml -375 ml medications Current Medications Medications Dose Ordered Sig/Miguel Route Start Time Stop Time Status Last Admin Dose Admin Aspirin 81 mg DAILY PO 11/06/24 10:00 11/08/24 09:11 81 MG Sevelamer HCl 800 mg TIDWM PO 11/06/24 08:00 11/08/24 14:20 800 MG Sodium Chloride 10 ml Q8HR IV 11/06/24 06:00 11/08/24 14:40 10 ML Ondansetron HCl 4 mg Q4HP PRN IV 11/06/24 01:45 11/08/24 04:31 4 MG Acetaminophen 650 mg Q6HP PRN PO 11/06/24 01:45 Clonidine HCl 0.3 mg TID PO 11/06/24 14:00 11/08/24 14:21 0.3 MG Bumetanide 25 mg/ Miscellaneous 100 ml @ 4 mls/hr Q24H IV 11/06/24 14:00 11/06/24 15:11 4 MLS/HR Hydralazine HCl 100 mg Q8HR PO 11/06/24 22:00 11/08/24 14:22 100 MG Nifedipine 60 mg DAILY PO 11/07/24 10:00 11/08/24 09:11 60 MG Atorvastatin Calcium 40 mg HS PO 11/07/24 22:00 11/07/24 22:31 40 MG Hydromorphone HCl 0.25 mg Q6HPRN PRN IV 11/07/24 10:15 11/08/24 15:36 0.25 MG laboratory and microbiology Laboratory Tests 11/08/24 05:43 Test 11/08/24 05:43 Range/Units Serum Glucose 111 H 74-106 mg/dL Microbiology Date/Time Source Procedure Growth Status 11/06/24 20:45 Nose MRSA Screen - Final Complete Problem List/Assessment/Plan Problem List/Assessment/Plan ESRD on dialysis Bleeding from AVF status post intervention by vascular surgery currently resolved Hypertensive emergency Anemia Recommendations Planning for dialysis saturday dc Bumex drip--on dc bumex 2mg po bid Blood pressure control Epogen with dialysis Plan discussed with: Patient My Orders My Orders Orders - RIVER MCKINNON MD Procedure Category Date Status Time Communication Order ORDERS 11/08/24 Transmitted 17:29 RIVER MCKINNON MD Nov 08, 2024 17:31
[2024-11-08 20:56] LABS: Hemoglobin 8.3 g/dL (13.5-17.5)
[2024-11-08 20:58] LABS: Hematocrit 25.5 % (41.0-53.0)
[2024-11-09] VITALS (13 sets, daily range): BP systolic 115–172; BP diastolic 53–101; PULSE 59–68; RESP 16–21; TEMP 97.2–98.2; O2SAT 93–97
[2024-11-09 02:32] LABS: Hematocrit 22.7 % (41.0-53.0); Hemoglobin 7.4 g/dL (13.5-17.5)
[2024-11-09 06:09] LABS: Basophils # (auto) 0 10 ^3/uL (0-0.2); Hemoglobin 7.3 g/dL (13.5-17.5); Platelet Count (auto) 276 10^3/uL (140-450)
[2024-11-09 06:12] LABS: Basophils % (auto) 0.4 % (0.0-2.0); Eosinophils # (auto) 0.4 10 ^3/uL (0-0.8); Eosinophils % (auto) 6.3 % (0.0-7.0); Hematocrit 22.3 % (41.0-53.0); Lymphocytes # (auto) 0.9 10 ^3/uL (0.4-5.4); Lymphocytes % (auto) 12.6 % (10.0-50.0); Mean Corpuscular Hemoglobin 28.2 pg (28.0-32.0); Mean Corpuscular Hgb Conc. 32.8 g/dL (32.0-36.0); Monocytes # (auto) 0.5 10 ^3/uL (0-1.3); Monocytes % (auto) 7.7 % (0.0-12.0); Neutrophils # (auto) 5.1 10 ^3/uL (1.6-8.6); Nucleated Red Blood Cells % 0.1 %; Red Cell Distribution Width 14.7 % (11.8-14.3)
[2024-11-09] MEDS: fentaNYL CITRATE 100 MCG/2 ML VL ONE (13:20)
[2024-11-09] MEDS: ceFAZolin 1GM/50ML 50 ML IV ONE (13:20)
[2024-11-09] MEDS: MIDAZOLAM HCL 2MG/2ML 2ml VIAL (1mg/ml) ONE (13:20)
[2024-11-09] MEDS: LIDOCAINE 2%HCL (LOCAL ANESTH.) INJ 20ML MDV ONE (13:20)
[2024-11-09] MEDS: HEPARIN SODIUM (PORCINE) 5000 UNITS/ML 1ML VIAL ONE ×2 (13:20→14:26)
[2024-11-09] MEDS: IODIXANOL 320MG/ML 100ML BTL IV ONE (13:46)
--- NOTE | 2024-11-09 14:25 | ECG ---
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
--- NOTE | 2024-11-09 14:25 | ECG ---
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
[2024-11-09] MEDS: HEPARIN 1,000 UNITS/ml 1ML VIAL ONE (14:26)
[2024-11-09] MEDS: BUPIVACAINE 0.25% INJ 50ML VIAL ONE (15:15)
[2024-11-09] MEDS: LIDOCAINE 1% HCL (LOCAL ANESTH.) INJ 20ML MDV ONE (15:15)
--- NOTE | 2024-11-09 16:25 | DVH ---
XY Insertion of Venous Cath, HISTORY: HD CATH PROCEDURE: Informed consent was obtained. The patient was placed supine on the interventional table. A limited localization ultrasound of the right neck base was obtained. The right neck base and upper chest were prepped with chlorhexidine which was allowed to dry and draped in the usual sterile fashio n. Time out was performed. IV sedation was administered. The skin and the soft tissues were infiltrat ed with 1% Lidocaine mixed with Epinephrine. With real-time ultrasound guidance, the internal jugular vein was accessed with a micropuncture kit, and an image documenting patency was recorded to PACS. A subcutaneous tunneled tract was created from the right upper chest to the venotomy site. A 14.5 Fren ch [place], 23 cm long hemodialysis catheter was advanced through the tunneled tract. Fluoroscopy was used to advance a guidewire through the internal jugular vein into the inferior vena cava. Following serial dilatation, a 15 [place] peel-away sheath was introduced, though which was adva nced the catheter into the right atrium. The catheter tip position was confirmed with fluoroscopy. Th ere was satisfactory flow in both lumens. The catheter lumens were flushed with saline and heparin wa s left indwelling in the catheter. A post-procedure image of the chest was obtained. The neck incisio n site was closed with a Vicryl suture and dressed sterilely. The catheter was sutured at the skin ha rface and exit site also dressed sterilely. No immediate complication was identified. DAP 116.81 FLUOROSCOPY TIME: 1.5 minutes. SEDATION: Dr. Carmita Walters was personally responsible for the administration of moderate sedation during the procedure performed, including the use of an independent trained observer who had no other duties during the procedure. The drugs utilized were IV fentanyl and versed (see nursing log for details). The total time of supervision by the attending physician was approximately 30 minutes. FINDINGS: Widely patent right IJV. Post procedure image demonstrates smooth course of the hemodialysi s catheter with the tip in the right atrium. IMPRESSION: placement of 14.5 [place], 23 cm long hemodialysis catheter through right internal jugular vein. Plan: Please contact IR for removal when no longer needed.
--- NOTE | 2024-11-09 16:38 | DVHPN2 ---
Progress Note Date Seen: Nov 09, 2024 Medical Necessity Reason Pt with a Central, PICC or Fol: No Subjective Patient reports: No new complaints Other Systems: Patient seen and examined by myself today in f/u Objective vital signs Vital Sign Date Time Temp Pulse Resp B/P (MAP) Pulse Ox O2 Delivery O2 Flow Rate FiO2 11/09/24 15:24 166/76 11/09/24 15:10 97.6 59 18 95 97.6 11/09/24 08:05 Nasal Cannula* 3 32 Total Intake and Output 11/08/24 11/08/24 11/09/24 15:00 23:00 07:00 Intake Total 1300 ml 350 ml Output Total 1000 ml 475 ml Balance 300 ml -125 ml medications Current Medications Medications Dose Ordered Sig/Miguel Route Start Time Stop Time Status Last Admin Dose Admin Aspirin 81 mg DAILY PO 11/06/24 10:00 11/09/24 10:53 81 MG Sevelamer HCl 800 mg TIDWM PO 11/06/24 08:00 11/09/24 08:05 800 MG Sodium Chloride 10 ml Q8HR IV 11/06/24 06:00 11/09/24 15:24 10 ML Ondansetron HCl 4 mg Q4HP PRN IV 11/06/24 01:45 11/08/24 04:31 4 MG Acetaminophen 650 mg Q6HP PRN PO 11/06/24 01:45 Clonidine HCl 0.3 mg TID PO 11/06/24 14:00 11/09/24 15:23 0.3 MG Hydralazine HCl 100 mg Q8HR PO 11/06/24 22:00 11/09/24 15:24 100 MG Nifedipine 60 mg DAILY PO 11/07/24 10:00 11/09/24 10:53 60 MG Atorvastatin Calcium 40 mg HS PO 11/07/24 22:00 11/08/24 22:09 40 MG Hydromorphone HCl 0.25 mg Q6HPRN PRN IV 11/07/24 10:15 11/09/24 10:54 0.25 MG Examination: LUNGS:Normal, CVS:Normal, MSK:Normal laboratory and microbiology Laboratory Tests 11/09/24 05:35 11/08/24 05:43 Test 11/08/24 05:43 Range/Units Serum Glucose 111 H 74-106 mg/dL Microbiology Date/Time Source Procedure Growth Status 11/06/24 20:45 Nose MRSA Screen - Final Complete Problem List/Assessment/Plan Problem List/Assessment/Plan ESRD on dialysis Bleeding from AVF s Hypertensive emergency Anemia Recommendations HD tomorrow Epogen with dialysis Noted plan for vascular surgery today Blood pressure control will continue to follow Plan discussed with: Patient My Orders My Orders Orders - RAKESH CRAIN MD Procedure Category Date Status Time Hemodialysis Orders ORDERS 11/10/24 Transmitted 07:00 Dialysis Nursing RAÚL 11/10/24 In Process Message 07:00 Heparin Sodium PHA 11/10/24 In Process (Porcine) 07:00 Heparin Sodium PHA 11/10/24 In Process (Porcine) 07:00 Sodium Chloride 0.9% PHA 11/10/24 In Process 07:00 Document Fluid Input RAÚL 11/10/24 In Process And Outpu 07:00 Epoetin Willard-Epbx PHA 11/10/24 In Process (Retacrit) 21:00 Hemoglobin & LAB 11/10/24 Verified Hematocrit 05:00 RAKESH CRAIN MD Nov 09, 2024 16:38
[2024-11-09] MEDS: ceFAZolin 2 GM/D5W100ml 100 ML IV ONE (16:39)
[2024-11-09] MEDS: ROPIVACAINE 0.5% (5MG/ML) 20ML AMPULE IJ ONE (16:41)
[2024-11-09] MEDS ORDERED: MIDAZOLAM HCL 2MG/2ML 2ml VIAL (1mg/ml) ONE (16:46)
--- NOTE | 2024-11-09 17:36 | POSTOP ---
Post-Operative Note Post-Operative Note Preop Diagnosis Left AV fistula bleeding Postop Diagnosis: Same Operation performed Left AV fistula repair/revision Specimen Left AV fistula vessel wall Anesthesia: Regional Anesthesiologist: Regional Blood Loss(fluid mgmt) 25 mL Tourniquet Time 21 minutes brachial artery left side Surgeon Vernon Ortiz MD Date 11/09/24 Time 17:34 VERNON ORTIZ Jr., MD Nov 09, 2024 17:36
--- NOTE | 2024-11-09 17:40 | DVHOP2 ---
Operative Report - 2 Report Details Date: 11/09/24 Preop Diagnosis: Left AV fistula bleeding Postop Diagnosis: Same Surgeon: Vernon Ortiz MD Anesthesiologist: Regional Anesthesia: Regional Consent: The patient was informed of the risks and benefits of the procedure. These include but are not limited to complications of anesthesia, postoperative infection, incomplete relief of symptoms, recurrence of symptoms, damage to blood vessels, nerves and tendons, deep venous thrombosis, pulmonary embolism and possible need for repeat surgery in the future. Estimated Blood Loss: 25 mL Name of Procedure Performed Left AV fistula repair/revision Procedure Details Procedure Details: Patient was identified in the preop hold area is being he was consented and preopped by myself. He was brought back to the operating room placed the operating table in supine position after adequate induction of anesthesia antibiotics and time-out the left arm was then prepped and draped in normal surgical fashion an Esmarch bandage was placed to exsanguinate the left arm. Tourniquet was then applied in the upper axillary region of the left brachial artery the tourniquet was set at 250 mmHg. An elliptical incision was made around necrotic lower portion of the AV fistula that had been bleeding. This was excised was sent off for pathology as well as for cultures. The the venous wall of the arteriovenous fistula was healthy it was opened proximally and 2 cm so the necrotic tissue had been dissected and removed from the wall of the AV fistula. The fistula was then freed up from the subcutaneous tissue to easily allow for closure of the skin. Prior to this the AV fistula vessel wall was then closed with a 5 0 Prolene suture in a running fashion. The tourniquet was then taken down no bleeding was noted there was a good thrill and bruit within the fistula. There was a good Doppler signal as well. At this point in time the wound was irrigated and the dermis was then closed with 2-0 Vicryl sutures interrupted. Followed by 4-0 Monocryl subcuticular suture. Followed by Dermabond. Patient awoke without any difficulties taken to the recovery room in stable condition. Sponge and needle counts were correct. Specimen: Left AV fistula vessel wall Condition Good Disposition pacu VERNON ORTIZ Jr., MD Nov 09, 2024 17:40
[2024-11-09] MEDS: ceFAZolin 2 GM/D5W50ml 50 ML IV ONE (18:30)
--- NOTE | 2024-11-09 21:17 | DVHPNRES ---
Progress Note Date Seen: Nov 09, 2024 Resident Creating Document: JHAJJRANJAN RESIDENT Medical Necessity Reason Pt with a Central, PICC or Fol: No Subjective Review of Systems LV fistula covered in a sterile dressing and a bandage At the time of examination patient reported mild intermittent chest pressure on the left side. Pain in the left AV fistula region. Reports no shortness of breath at O2 of 3 liters/minute Objective vital signs Vital Sign Date Time Temp Pulse Resp B/P (MAP) Pulse Ox O2 Delivery O2 Flow Rate FiO2 11/09/24 20:44 61 18 145/53 11/09/24 20:00 95 Room Air* 0 21 11/09/24 17:39 97.3 97.3 Total Intake and Output 11/08/24 11/08/24 11/09/24 15:00 23:00 07:00 Intake Total 1300 ml 350 ml Output Total 1000 ml 475 ml Balance 300 ml -125 ml medications Current Medications Medications Dose Ordered Sig/Miguel Route Start Time Stop Time Status Last Admin Dose Admin Aspirin 81 mg DAILY PO 11/06/24 10:00 11/09/24 10:53 81 MG Sevelamer HCl 800 mg TIDWM PO 11/06/24 08:00 11/09/24 18:34 800 MG Sodium Chloride 10 ml Q8HR IV 11/06/24 06:00 11/09/24 15:24 10 ML Ondansetron HCl 4 mg Q4HP PRN IV 11/06/24 01:45 11/08/24 04:31 4 MG Acetaminophen 650 mg Q6HP PRN PO 11/06/24 01:45 Clonidine HCl 0.3 mg TID PO 11/06/24 14:00 11/09/24 15:23 0.3 MG Hydralazine HCl 100 mg Q8HR PO 11/06/24 22:00 11/09/24 15:24 100 MG Nifedipine 60 mg DAILY PO 11/07/24 10:00 11/09/24 10:53 60 MG Atorvastatin Calcium 40 mg HS PO 11/07/24 22:00 11/08/24 22:09 40 MG Hydromorphone HCl 0.25 mg Q6HPRN PRN IV 11/07/24 10:15 11/09/24 20:44 0.25 MG Examination Physical Examination Constitutional: Patient is alert and oriented to time, place and person and is not in any acute respiratory distress Gen - mild conjunctival pallor, no icterus, no cyanosis, no clubbing, no LAD, no edema . Skin - Patients skin is warm and dry.. HEENT - normocephalic, atraumatic, moist mucous membranes. Neck - full ROM, no LAD, no JVD. Pulmonary - B/L vesicular breath sounds. no crackles , no wheezing, no stridor. cardiovascular - normal S1,S2 heard. no murmurs heard. GI - soft abdomen without tenderness to palpation . no hepatospleenomegaly. Bowel sounds normoactive Neurological - Bilateral upper extremity strength 4/5, bilateral lower extremity strength 4/5, no facial droop, normal speech, no tremor, no sensory deficiets. laboratory and microbiology Laboratory Tests 11/09/24 05:35 11/08/24 05:43 Test 11/08/24 05:43 Range/Units Serum Glucose 111 H 74-106 mg/dL Microbiology Date/Time Source Procedure Growth Status 11/06/24 20:45 Nose MRSA Screen - Final Complete Problem List/Assessment/Plan Problem List/Assessment/Plan Assessment Left AV fistula bleeding Left AV fistula repair ESRD Hypertensive urgency Acute chest pain, rule out ACS Plan - vascular surgeon consulted left AV fistula bleeding site repaired and draped in sterile dressing. Can be used for Dialysis - nephrology consulted for end-stage renal disease for dialysis which is planned for today - Patient is continued on Bumex drip - patient is continued on hydralazine 100 mg t.i.d. and clonidine 0.3 mg t.i.d and nifedipine 60mg qd - ECG reviewed and is not showing signs of acute ST segment or T-wave changes, troponins mildly elevated in 70s, likely demand supply mismatch. - dilaudid 0.25mg q6prn for pain control - 11/09 - Left AV fistula repair done by following which the patient was transfered to room in stable condition. - As per nephrology, dialysis to be done tomorrow Goals of care discussed with the patient for over 19 minutes. Full code Plan discussed with Plan discussed with: Patient My Orders My Orders Orders - RANJAN SZYMANSKI RESIDENT Procedure Category Date Status Time Pt Request For Service PT 11/09/24 Logged 07:01 Insertion Of Venous XY 11/09/24 Resulted Cath 14:22 RANJAN SZYMANSKI RESIDENT Nov 09, 2024 21:17
[2024-11-10] VITALS (8 sets, daily range): BP systolic 125–171; BP diastolic 36–75; PULSE 59–68; RESP 17–20; TEMP 98.1–98.6; O2SAT 93–96
[2024-11-10] MEDS: SODIUM CHL 0.9% 1000 ML BAG XX ONE (03:00)
[2024-11-10 06:43] LABS: Eosinophils # (auto) 0.4 10 ^3/uL (0-0.8); Hemoglobin 7.4 g/dL (13.5-17.5); Lymphocytes # (auto) 0.4 10 ^3/uL (0.4-5.4); Monocytes # (auto) 0.6 10 ^3/uL (0-1.3); Red Blood Cells 2.62 10^6/uL (4.5-5.90)
[2024-11-10 06:44] LABS: Chloride 102 mmol/L (98-107); Sodium 139 mmol/L (136-145)
[2024-11-10 06:45] LABS: Anion Gap 9 (5-15); Basophils # (auto) 0 10 ^3/uL (0-0.2); Basophils % (auto) 0.4 % (0.0-2.0); Calcium 9.4 mg/dL (8.7-10.4); Carbon Dioxide 28 mmol/L (20-31); Eosinophils % (auto) 3.7 % (0.0-7.0); Hematocrit 22.2 % (41.0-53.0); Lymphocytes % (auto) 4.3 % (10.0-50.0); Mean Corpuscular Hemoglobin 28.4 pg (28.0-32.0); Mean Corpuscular Hgb Conc. 33.5 g/dL (32.0-36.0); Mean Corpuscular Volume 84.8 fL (80.0-100.0); Monocytes % (auto) 5.8 % (0.0-12.0); Neutrophils # (auto) 8.6 10 ^3/uL (1.6-8.6); Neutrophils % (auto) 85.8 % (37.0-80.0); Platelet Count (auto) 311 10^3/uL (140-450); Red Cell Distribution Width 14.8 % (11.8-14.3)
[2024-11-10 06:50] LABS: Glucose 88 mg/dL (74-106)
[2024-11-10 06:51] LABS: BUN/Creatinine Ratio 6.2 (10.0-20.0)
[2024-11-10 06:52] LABS: Blood Urea Nitrogen 29 mg/dL (9-23)
--- NOTE | 2024-11-10 10:54 | DVHPN2 ---
Progress Note Date Seen: Nov 10, 2024 Medical Necessity Reason Pt with a Central, PICC or Fol: No Subjective Patient reports: No new complaints Other Systems: Patient seen and examined by myself today in follow-up Patient examined hemodialysis, blood pressure stable Objective vital signs Vital Sign Date Time Temp Pulse Resp B/P (MAP) Pulse Ox O2 Delivery O2 Flow Rate FiO2 11/10/24 09:31 137/46 11/10/24 08:07 61 18 11/10/24 05:00 98.6 96 98.6 11/09/24 20:00 Room Air* 0 21 Total Intake and Output 11/09/24 11/09/24 11/10/24 15:00 23:00 07:00 Intake Total 0 ml 250 ml Output Total 200 ml 400 ml Balance -200 ml 0 ml -150 ml medications Current Medications Medications Dose Ordered Sig/Miguel Route Start Time Stop Time Status Last Admin Dose Admin Aspirin 81 mg DAILY PO 11/06/24 10:00 11/10/24 09:30 81 MG Sevelamer HCl 800 mg TIDWM PO 11/06/24 08:00 11/10/24 08:07 800 MG Sodium Chloride 10 ml Q8HR IV 11/06/24 06:00 11/10/24 06:00 10 ML Ondansetron HCl 4 mg Q4HP PRN IV 11/06/24 01:45 11/08/24 04:31 4 MG Acetaminophen 650 mg Q6HP PRN PO 11/06/24 01:45 Clonidine HCl 0.3 mg TID PO 11/06/24 14:00 11/10/24 06:31 0.3 MG Hydralazine HCl 100 mg Q8HR PO 11/06/24 22:00 11/10/24 06:30 100 MG Nifedipine 60 mg DAILY PO 11/07/24 10:00 11/10/24 09:31 60 MG Atorvastatin Calcium 40 mg HS PO 11/07/24 22:00 11/09/24 21:46 40 MG Hydromorphone HCl 0.25 mg Q6HPRN PRN IV 11/07/24 10:15 11/10/24 06:29 0.25 MG Examination: LUNGS:Normal, CVS:Normal, MSK:Normal laboratory and microbiology Laboratory Tests 11/10/24 05:30 Test 11/10/24 05:30 Range/Units Serum Glucose 88 74-106 mg/dL Microbiology Date/Time Source Procedure Growth Status 11/06/24 20:45 Nose MRSA Screen - Final Complete Problem List/Assessment/Plan Problem List/Assessment/Plan ESRD on dialysis Bleeding from AVF s/p repair 11/09 Hypertensive emergency Anemia Recommendations Continue with UF to 3 L as tolerated Epogen 18496 IV post hemodialysis Blood pressure control Patient is cleared from Nephrology for discharge follow-up outpatient hemodialysis schedule Plan discussed with: Patient RAKESH CRAIN MD Nov 10, 2024 10:54
[2024-11-10] MEDS ORDERED: ATOR40TA52 PO (12:00)
--- NOTE | 2024-11-10 19:52 | DVHDSRES ---
Discharge Summary Date of Admission Resident Creating Document: RANJAN SZYMANSKI RESIDENT Nov 06, 2024 at 02:55 Date of Discharge: Nov 10, 2024 Admitting Diagnosis Hypertensive urgency Hemorrhage of surgically-created arteriovenous fistula Elevated troponin Anemia of chronic disease Generalized weakness End-stage renal disease on hemodialysis Wounds: Left Arm AV fistula repair Labs/Diagnostic Data: Laboratory Results Test 11/10/24 05:30 11/07/24 10:21 11/06/24 20:52 11/06/24 06:04 White Blood Count 10.0 10^3/uL (4.4-10.8) Red Blood Count 2.62 10^6/uL (4.5-5.90) Hemoglobin 7.4 g/dL (13.5-17.5) Hematocrit 22.2 % (41.0-53.0) Mean Corpuscular Volume 84.8 fL (80.0-100.0) Mean Corpuscular Hemoglobin 28.4 pg (28.0-32.0) Mean Corpuscular Hemoglobin Concent 33.5 g/dL (32.0-36.0) Red Cell Distribution Width 14.8 % (11.8-14.3) Platelet Count 311 10^3/uL (140-450) Mean Platelet Volume 8.2 fL (6.9-10.8) Neutrophils (%) (Auto) 85.8 % (37.0-80.0) Lymphocytes (%) (Auto) 4.3 % (10.0-50.0) Monocytes (%) (Auto) 5.8 % (0.0-12.0) Eosinophils (%) (Auto) 3.7 % (0.0-7.0) Basophils (%) (Auto) 0.4 % (0.0-2.0) Neutrophils # (Auto) 8.6 10 ^3/uL (1.6-8.6) Lymphocytes # (Auto) 0.4 10 ^3/uL (0.4-5.4) Monocytes # (Auto) 0.6 10 ^3/uL (0-1.3) Eosinophils # (Auto) 0.4 10 ^3/uL (0-0.8) Basophils # (Auto) 0 10 ^3/uL (0-0.2) Nucleated Red Blood Cells 0.0 % Sodium Level 139 mmol/L (136-145) Potassium Level 4.0 mmol/L (3.5-5.1) Chloride Level 102 mmol/L (98-107) Carbon Dioxide Level 28 mmol/L (20-31) Anion Gap 9 (5-15) Blood Urea Nitrogen 29 mg/dL (9-23) Creatinine 4.69 mg/dL (0.700-1.30) Glomerular Filtration Rate Calc 13 mL/min (>90) BUN/Creatinine Ratio 6.2 (10.0-20.0) Serum Glucose 88 mg/dL (74-106) Calcium Level 9.4 mg/dL (8.7-10.4) Total Bilirubin < 0.2 mg/dL (0.2-1.0) Aspartate Amino Transferase (AST) 13 U/L (13-40) Alanine Aminotransferase (ALT) < 9 U/L (7-40) Alkaline Phosphatase 67 U/L (46-116) Total Protein 6.4 g/dL (5.7-8.2) Albumin 3.8 g/dL (3.2-4.8) Troponin I High Sensitivity 72 ng/L (</=54) Phosphorus Level 6.7 mg/dL (2.4-5.1) Magnesium Level 2.2 mg/dL (1.6-2.6) Test 11/05/24 21:39 Prothrombin Time 10.3 sec (9.3-11.8) Prothrombin Time INR 0.97 (0.9-1.15) Other Laboratory Tests 11/10/24 05:30 Brief Hx & Hospital Course: Patient is a 69-year-old male with a past medical history of end-stage renal disease on dialysis Saturday, heart failure with preserved ejection fraction, COPD on 3 L oxygen at home, hypertension came to the ED with a chief complaint of bleeding from the right arm dialysis fistula which started spontaneously around 4:00 p.m. yesterday. Patient socks around and tried to put a bandage but it did not help. Patient also reports chest pain which is on the left side, nonradiating, occurred at rest sit to be a similar chest pain for which he was admitted last week the hospital. Past medical history: ESRD on dialysis MWF, Hfpef, coronary artery disease, COPD Past surgical history: Left AV fistula, hernia repair Social history: Patient denies current smoking, alcohol, drug use Home medications: Clonidine 0.3 mg t.i.d., hydralazine 100 mg t.i.d., nifedipine 60 mg, sevelamer 800 mg t.i.d., tamsulosin 0.4 mg Hospital course Patient came to the hospital with a bleeding left AV fistula following which vascular surgery was consulted. Left AV fistula repair at bedside was done and interpreted sutures were placed. Patient was also noted to have high blood pressures with SBP more than 200 and was started on his home medication of clonidine, hydralazine and nifedipine. Nephrology were consulted for end-stage renal disease who started the patient on bumetanide drip until the time the patient has a dialysis. The left AV fistula again started bleeding and vascular surgical consulted who did a left AV fistula repair/revision. Interventional Radiology were consulted for insertion of tunneled catheter following which dialysis was done. Patient was cleared from Nephrology and vascular surgery for discharge. Patient was advised to strictly be compliant with the dialysis schedule on Saturday and Saturday and the patient medication. Discharge plan Follow up in the discharge clinic in 1 week Follow up with Nephrology in the outpatient clinic on Saturday for hemodialysis Continued on home medications and atorvastatin 40 mg daily sent Consults/Reason for consult Vascular surgery consultation for left AV fistula bleeding Nephrology consultation for ESRD Interventional Radiology consultation for tunnel catheter insertion Operations or Procedures Operative Report - 2 Report Details Date: 11/09/24Preop Diagnosis: Left AV fistula bleeding Postop Diagnosis: Same Surgeon: Vernon Ortiz MD Anesthesiologist: Regional Anesthesia: Regional Consent: The patient was informed of the risks and benefits of the procedure. These include but are not limited to complications of anesthesia, postoperative infection, incomplete relief of symptoms, recurrence of symptoms, damage to blood vessels, nerves and tendons, deep venous thrombosis, pulmonary embolism and possible need for repeat surgery in the future. Estimated Blood Loss: 25 mL Name of Procedure Performed Left AV fistula repair/revision Procedure Details Procedure Details: Patient was identified in the preop hold area is being he was consented and preopped by myself. He was brought back to the operating room placed the operating table in supine position after adequate induction of anesthesia antibiotics and time-out the left arm was then prepped and draped in normal surgical fashion an Esmarch bandage was placed to exsanguinate the left arm. Tourniquet was then applied in the upper axillary region of the left brachial artery the tourniquet was set at 250 mmHg. An elliptical incision was made around necrotic lower portion of the AV fistula that had been bleeding. This was excised was sent off for pathology as well as for cultures. The the venous wall of the arteriovenous fistula was healthy it was opened proximally and 2 cm so the necrotic tissue had been dissected and removed from the wall of the AV fistula. The fistula was then freed up from the subcutaneous tissue to easily allow for closure of the skin. Prior to this the AV fistula vessel wall was then closed with a 5 0 Prolene suture in a running fashion. The tourniquet was then taken down no bleeding was noted there was a good thrill and bruit within the fistula. There was a good Doppler signal as well. At this point in time the wound was irrigated and the dermis was then closed with 2-0 Vicryl sutures interrupted. Followed by 4-0 Monocryl subcuticular suture. Followed by Dermabond. Patient awoke without any difficulties taken to the recovery room in stable condition. Sponge and needle counts were correct. Specimen: Left AV fistula vessel wall Condition Good VERNON ORTIZ Jr., MD XY Insertion of Venous Cath, HISTORY: HD CATH PROCEDURE: Informed consent was obtained. The patient was placed supine on the interventional table. A limited localization ultrasound of the right neck base was obtained. The right neck base and upper chest were prepped with chlorhexidine which was allowed to dry and draped in the usual sterile fashion. Time out was performed. IV sedation was administered. The skin and the soft tissues were infiltrated with 1% Lidocaine mixed with Epinephrine. With real- time ultrasound guidance, the internal jugular vein was accessed with a micropuncture kit, and an image documenting patency was recorded to PACS. A subcutaneous tunneled tract was created from the right upper chest to the venotomy site. A 14.5 [place] Path, 23 cm long hemodialysis catheter was advanced through the tunneled tract. Fluoroscopy was used to advance a guidewire through the internal jugular vein into the inferior vena cava. Following serial dilatation, a 15 Afghan peel-away sheath was introduced, though which was advanced the catheter into the right atrium. The catheter tip position was confirmed with fluoroscopy. There was satisfactory flow in both lumens. The catheter lumens were flushed with saline and heparin was left indwelling in the catheter. A post-procedure image of the chest was obtained. The neck incision site was closed with a Vicryl suture and dressed sterilely. The catheter was sutured at the skin surface and exit site also dressed sterilely. No immediate complication was identified DAP 116.81 FLUOROSCOPY TIME: 1.5 minutes. SEDATION: Dr. Carmita Walters was personally responsible for the administration of moderate sedation during the procedure performed, including the use of an independent trained observer who had no other duties during the procedure. The drugs utilized were IV fentanyl and versed (see nursing log for details). The total time of supervision by the attending physician was approximately 30 minutes. FINDINGS: Widely patent right IJV. Post procedure image demonstrates smooth course of the hemodialysis catheter with the tip in the right atrium. IMPRESSION: placement of 14.5 [place] [address], 23 cm long hemodialysis catheter through right internal jugular vein. Plan: Please contact IR for removal when no longer needed. Condition at Discharge: Good Final Diagnosis/Problems List - left AV fistula bleeding - left AV fistula repair - ESRD - hypertensive urgency - acute chest pain, rule out ACS Discharge Disposition: Home Discharge Instruct/Medications Diet: Renal Activity: No Restrictions, As Tolerated Follow Up/Referral: Follow up in the discharge clinic in one week Follow up in for dialysis on saturday. Medications: continue home medications as per EMR Discharge Statement: "Patient was advised to return to the ER or call 911 if any headaches, dizziness, shortness of breath, chest pain, abdominal pain, bleeding, fevers, or worsening of medical condition. Patient was counseled about treatment plan, medications, possible side effects, patientverbalized understanding. All questions were answered to the best of my ability. This discharge took greater then 30 minutes in planning, reviewing documentation, counseling the patient, and discussing with other team members." ASSESSMENT ASSESSMENT Assessment - left AV fistula bleeding - left AV fistula repair - ESRD - hypertensive urgency - acute chest pain, rule out ACS RANJAN SZYMANSKI RESIDENT Nov 10, 2024 19:52
[2024-11-10] MEDS ORDERED: EPOETIN ALFA-EPBX 10,000 UNIT/1ML VIAL SC ONE (21:00)
== END 2024-11-10 14:36 | disposition home or self-care (01) | DRG 252 ==
LOC: ER 19:52 → TELE 11-06 02:55 → TELE-WESTW 11-06 18:33
PROVIDERS: ADMIT Hospitalist; ATTEND Hospitalist
PROC: 5A1D70Z Performance of Urinary Filtration, Intermittent, Less than 6 Hours Per Day (ICD-10-PCS; 2024-11-07)
PROC: 0JH63XZ Insertion of Tunneled Vascular Access Device into Chest Subcutaneous Tissue and Fascia, Percutaneous Approach (ICD-10-PCS; 2024-11-09)
PROC: 02H633Z Insertion of Infusion Device into Right Atrium, Percutaneous Approach (ICD-10-PCS; 2024-11-09)
PROC: B5181ZA Fluoroscopy of Superior Vena Cava using Low Osmolar Contrast, Guidance (ICD-10-PCS; 2024-11-09)
PROC: B548ZZA Ultrasonography of Superior Vena Cava, Guidance (ICD-10-PCS; 2024-11-09)
PROC: 5A1D70Z Performance of Urinary Filtration, Intermittent, Less than 6 Hours Per Day (ICD-10-PCS; 2024-11-09)
PROC: 05BY0ZZ Excision of Upper Vein, Open Approach (ICD-10-PCS; principal; 2024-11-09 16:48)
DX: T82.838A Hemorrhage due to vascular prosthetic devices, implants and grafts, initial encounter (principal); N18.6 End stage renal disease; I13.2 Hypertensive heart and chronic kidney disease with heart failure and with stage 5 chronic kidney disease, or end stage renal disease; I16.0 Hypertensive urgency; I50.9 Heart failure, unspecified; F17.210 Nicotine dependence, cigarettes, uncomplicated; D63.1 Anemia in chronic kidney disease; Z86.73 Personal history of transient ischemic attack (TIA), and cerebral infarction without residual deficits; Z99.2 Dependence on renal dialysis; Z83.3 Family history of diabetes mellitus; Z82.49 Family history of ischemic heart disease and other diseases of the circulatory system; Y84.8 Other medical procedures as the cause of abnormal reaction of the patient, or of later complication, without mention of misadventure at the time of the procedure; Y92.89 Other specified places as the place of occurrence of the external cause; Z79.899 Other long term (current) drug therapy
CPT/HCPCS: 36415; 36558; 77001; 80048; 80053; 83735; 84100; 84484; 85014; 85018; 85025; 85610; 86850; 86900; 86901; 87070; 87075; 87077; 87081; 87186; 87205; 90935; 93005; 97116; 97162; 97530; 99152; C1894; G0378; J1642; J2003; J2250; J2405; J3490; Q9967

== ENCOUNTER 2025-03-07 04:36 | Emergency (ER) | payer OTHER, MEDICAID ==
[~2025-03-07] VITALS: Ht 170.2 cm; Wt 83.6 kg
[~2025-03-07 04:36] MED LIST changes: +ATOR40TA52 PO; -CLON0.3D4 PO; +CLON0.3T46 PO; -PERCOT PO; +SERT-289 PO
--- NOTE | 2025-03-07 05:19 | ED.PDOC ---
History of Present Illness HPI Comments 69-year-old male came to ER for wound check. Patient has history of hypertension, congestive heart failure, end-stage renal disease, polysubstance abuse. Patient is on dialysis every Saturday. Patient was unable to get his dialysis session yesterday, Saturday, since he fell asleep on his car. Patient states the fistula in his left arm was leaking 2 months ago, so it was stitched up and a port was created right chest where he gets his dialysis done. Patient coming in due to a suture still attached on his left arm and a chest discomfort where his dialysis port is attached. Patient states the port on his right chest still works fine. Blood pressure upon arrival was 235/100 mmHg Chief Complaint: Upper Extremity Time Seen by MD: 05:19 Primary Care Provider: NEGAR Saini Notes: Nurses Notes Allergies: Coded Allergies: NO KNOWN ALLERGIES (Unverified , 10/17/22) Home Meds Active Scripts Atorvastatin Calcium (ATORVASTATIN CALCIUM) 40 Mg Tab, 40 MG PO DAILY for 30 Days, #30 TAB 0 Refills Prov:RANJAN SZYMANSKI RESIDENT 11/10/24 Reported Medications Sertraline HCl (Sertraline HCl) 50 Mg Tab, 50 MG PO DAILY, TAB 11/06/24 Clonidine Hydrochloride (Clonidine Hydrochloride) 0.3 Mg Tab, 0.3 MG PO TID, TAB 11/06/24 Sevelamer Carbonate (Renvela) 800 Mg Tab, 2 TAB PO TIDWM for 90 Days, #540 10/27/24 Alprazolam (Alprazolam) 1 Mg Tab, 1 TAB PO DAILYPRN PRN for ANXIETY for 30 Days, #30 10/27/24 Nifedipine (Nifedipine Er) 60 Mg Tab, 1 TAB PO DAILY 01/14/24 Tamsulosin Hcl (Tamsulosin Hcl) 0.4 Mg Cap, 1 CAP PO DAILY 01/14/24 Hydralazine Hcl (Hydralazine Hcl) 100 Mg Tab, 1 TAB PO DAILY for 30 Days, #30 01/14/24 Information Source: Patient Mode of Arrival: Ambulatory Severity: Moderate Timing: Hours Duration: Since onset Prehospital treatment: None Past Medical History PAST MEDICAL HISTORY: CHF, CVA, ESRD, HTN, [place] Surgical History: Hernia Repair Surgical History (Other): Dialysis every Saturday Family History Family History: Reviewed,noncontributory to illness Social History Smoker: Cigarettes Alcohol: Denies ETOH Use Drugs: Marijuana, Methamphetamine Lives In: Home Constitutional: denies: chills, diaphoresis, fatigue, fever, malaise, sweats, weakness, others EENTM: denies: blurred vision, double vision, ear bleeding, ear discharge, ear drainage, ear pain, ear ringing, eye pain, eye redness, hearing loss, mouth pain, mouth swelling, nasal discharge, nose bleeding, nose congestion, nose celi n, photophobia, tearing, throat pain, throat swelling, voice changes, others Respiratory: denies: cough, hemoptysis, orthopnea, SOB at rest, shortness of breath, SOB with excertion, stridor, wheezing, others Cardiovascular: reports: chest pain; denies: dizzy spells, diaphoresis, Dyspnea on exertion, edema, irregular heart beat, left arm pain, lightheadedness, palpitations, PND, syncope, others Gastrointestinal: denies: abdomen distended, abdominal pain, blood streaked bowels, constipated, diarrhea, dysphagia, difficulty swallowing, hematemesis, me espinoza, nausea, poor appetite, poor fluid intake, rectal bleeding, rectal pain, vomiting, others Genitourinary: denies: burning, dysuria, flank pain, frequency, hematuria, incontinence, penile discharge, penile sore, pain, testicle pain, testicle swelling, urgency, others Neurological: denies: dizziness, fainting, headache, left sided numbness, left sided weakness, numbness, paresthesia, pre-existing deficit, right sided numbness, right sided weakness, seizure, speech problems, tingling, tremors, weakness, others Musculoskeletal: reports: muscle pain (Left arm); denies: back pain, gout, joint pain, joint swelling, muscle stiffness, neck pain, others Integumetry: denies: bruises, change in color, change in hair/nails, dryness, laceration, lesions, lumps, rash, wounds, others Allergic/Immunocompromised: denies: Difficulty Healing, Frequent Infections, Hives, Itching, others Hematologic/Lymphatic: denies: anemia, blood clots, easy bleeding, easy bruising, swollen glands, others Endocrine: denies: excessive hunger, excessive sweating, excessive thirst, excessive urination, flushing, intolerance to cold, intolerance to heat, unexplained weight gain, unexplained weight loss, others Psychiatric: denies: anxiety, bipolar disorder, depression, hopeless, panic disorder, schizophrenia, sleepless, suicidal, others Physical Exam General Appearance: No Apparent Distress, Normal HEENT: Normal ENT Inspection, Pharynx Normal, TMs Normal Neck: Full Range of Motion, Non-Tender, Normal, Normal Inspection Respiratory: Chest Non-Tender, Lungs Clear, No Accessory Muscle Use, No Respiratory Distress, Normal Breath Sounds Cardiovascular: No Edema, No JVD, No Murmur, No Gallop, Normal Peripheral Pulses, Regular Rate/Rhythm Breast Exam: Deferred Gastrointestinal: No Organomegaly, Non Tender, No Pulsatile Mass, Normal Bowel Sounds, Soft Genitalia: Deferred Pelvic: Deferred Rectal: Deferred Extremities: No calf tenderness, Normal capillary refill, Normal inspection, Normal range of motion, Non-tender, No pedal edema Musculoskeletal : Apperance: Normal Neurologic: Alert, blend plant operator II-XII nml as Tested, No Motor Deficits, Normal Affect, Normal Mood, No Sensory Deficits Cerebellar Function: Normal Reflexes: Normal Skin: Dry, Normal Color, Warm Lymphatic: No Adenopathy Was a procedure done? Was a procedure done?: No EKG EKG : Pulse Rate (adult): 83 [place]: Normal Cardiac Rhythm: NSR Hypertrophy: LVH Comments LVH with repolarization abnormality and borderline prolonged QT interval Differential Dx Considerations may include: End-stage renal disease, congestive heart failure, hypertensive urgency, polysubstance abuse, medication noncompliance Time of 1ST Reevaluation: 05:07 Reevaluation 1ST: Unchanged Patient Education/Counseling: Diagnosis, Treatment Family Education/Counseling: No Family Present Departure 1 Departure Time of Disposition: 05:23 Impression: Primary Impression: End-stage renal disease on hemodialysis Additional Impression: Hypertensive urgency Disposition: 01 HOME / SELF CARE / HOMELESS Condition: Stable Discharged With: Self Critical Care Note Critical Care Time?: Yes (35 min-critical care time only) Critical care comment: Hypertensive urgency Stability Stability form required: No Heart Score Heart Score: Heart Score Response (Comments) Value History N/A 0 EKG N/A 0 Age N/A 0 Risk Factors N/A 0 Troponin N/A 0 Total 0 I personally scribed for AARON PALUMBO MD ([email or web address]) on 03/07/25 at 05:19. Electronically submitted by Maicol Haley ([email or web address]). AARON PALUMBO MD March 07, 2025 05:19
[2025-03-07] MEDS: hydrALAZINE HCL 25 MG TAB PO ONE (05:53)
[2025-03-07] MEDS: cloNIDine HCL 0.1 MG TAB PO ONE (05:54)
[2025-03-07 06:59] VITALS: BP 194/73; PULSE 91; RESP 24; TEMP 98.7; O2SAT 96
--- NOTE | 2025-03-08 13:42 | ECG ---
[facility] Test Date: 2025-03-07 Test Time: 05:10:14 Pat Name: MELISSA MATHEWS Department: ED Room: Gender: M Center Lead Consultant: : 1955 Requested By: AARON PALUMBO Order Number: [id number] Reading MD: Measurements Intervals Velva Rate: 83 P: 44 PA: 173 QRS: 49 QRSD: 103 T: 259 QT: 406 QTc: 477 Interpretive Statements Sinus rhythm LVH with secondary repolarization abnormality Borderline prolonged QT interval Please click the below link to view image of tracing.
== END 2025-03-07 07:22 | disposition home or self-care (01) ==
LOC: ER 04:36
DX: I13.2 Hypertensive heart and chronic kidney disease with heart failure and with stage 5 chronic kidney disease, or end stage renal disease (principal); I50.9 Heart failure, unspecified; N18.6 End stage renal disease; I16.0 Hypertensive urgency; I25.2 Old myocardial infarction; F17.210 Nicotine dependence, cigarettes, uncomplicated; F12.90 Cannabis use, unspecified, uncomplicated; Z98.890 Other specified postprocedural states; Z99.2 Dependence on renal dialysis; Z79.899 Other long term (current) drug therapy
CPT/HCPCS: 93005; 99291

== ENCOUNTER 2025-04-30 05:55 | Inpatient (IN) | payer OTHER, MEDICAID ==
[~2025-04-30] VITALS: Ht 170.2 cm; Wt 87.0 kg
--- NOTE | 2025-04-30 06:09 | ECG ---
[facility] Test Date: 2025-04-30 Test Time: 06:03:02 Pat Name: MELISSA MATHEWS Department: ED Room: [address] [place] [address] Gender: M Weed Controller: PANKAJ : 1955 Requested By: PRIYA VERA Order Number: [id number] Reading MD: Gustavo Karimi Measurements Intervals Van Rate: 80 P: 38 MD: 157 QRS: 0 QRSD: 103 T: 165 QT: 453 QTc: 523 Interpretive Statements Sinus rhythm LVH with secondary repolarization abnormality Consider inferior lateral ischlemia. Prolonged QT interval Electronically Signed On 05-03-2025 18:37:13 PDT by Gustavo Karimi Please click the below link to view image of tracing.
--- NOTE | 2025-04-30 06:21 | ED.PDOC ---
History of Present Illness HPI Comments 70-year-old male BIBA with prior medical history of CHF, CVA, ESRD (M, W, F), hypertension, mi: Surgical history of hernia repair in the chief complaint of chest pain. EMS report that the patient informed in the he was dropped off in [place], and does the patient was walking to his dialysis today he fell couple of times (patient is unknown of the exact amount). When the patient arrived to his dialysis he stated chest pain for which the nurses gave the patient to given two nitro but one did not dissolve. In the ER the patient informed the nurse that he is having an anxiety attack reviewed. Denies chills, fever, N/V/D, SOB. No other associated symptoms, modifiers, recent injuries or sick contacts present at this time. Chief Complaint: Chest Pain Time Seen by MD: 06:20 Primary Care Provider: n/a Reviewed Notes: Nurses Notes, Medical Billing Manager Notes, Medications, Allergies Allergies: Coded Allergies: NO KNOWN ALLERGIES (Unverified , 10/17/22) Home Meds Active Scripts Atorvastatin Calcium (ATORVASTATIN CALCIUM) 40 Mg Tab, 40 MG PO DAILY for 30 Days, #30 TAB 0 Refills Prov:RANJAN SZYMANSKI RESIDENT 11/10/24 Reported Medications Sertraline HCl (Sertraline HCl) 50 Mg Tab, 50 MG PO DAILY, TAB 11/06/24 Clonidine Hydrochloride (Clonidine Hydrochloride) 0.3 Mg Tab, 0.3 MG PO TID, TAB 11/06/24 Sevelamer Carbonate (Renvela) 800 Mg Tab, 2 TAB PO TIDWM for 90 Days, #540 10/27/24 Alprazolam (Alprazolam) 1 Mg Tab, 1 TAB PO DAILYPRN PRN for ANXIETY for 30 Days, #30 10/27/24 Nifedipine (Nifedipine Er) 60 Mg Tab, 1 TAB PO DAILY 01/14/24 Tamsulosin Hcl (Tamsulosin Hcl) 0.4 Mg Cap, 1 CAP PO DAILY 01/14/24 Hydralazine Hcl (Hydralazine Hcl) 100 Mg Tab, 1 TAB PO DAILY for 30 Days, #30 01/14/24 Information Source: Patient, Emergency Med Personnel Mode of Arrival: EMS Severity: Moderate Timing: Minutes Duration: Since onset, Minutes Prehospital treatment: None Past Medical History PAST MEDICAL HISTORY: CHF, CVA, ESRD (M, W, F), HTN, ME Surgical History: Hernia Repair Family History Family History: Reviewed,noncontributory to illness Social History Smoker: Unknown Alcohol: Unknown Drugs: Unknown Lives In: Home Constitutional: reports: weakness; denies: chills, diaphoresis, fatigue, fever, malaise, sweats, others EENTM: denies: blurred vision, double vision, ear bleeding, ear discharge, ear drainage, ear pain, ear ringing, eye pain, eye redness, hearing loss, mouth pain, mouth swelling, nasal discharge, nose bleeding, nose congestion, nose pain, photophobia, tearing, throat pain, throat swelling, voice changes, others Respiratory: denies: cough, hemoptysis, orthopnea, SOB at rest, shortness of breath, SOB with excertion, stridor, wheezing, others Cardiovascular: reports: chest pain; denies: dizzy spells, diaphoresis, Dyspnea on exertion, edema, irregular heart beat, left arm pain, lightheadedness, palpitations, PND, syncope, others Gastrointestinal: denies: abdomen distended, abdominal pain, blood streaked bowels, constipated, diarrhea, dysphagia, difficulty swallowing, hematemesis, melena, nausea, poor appetite, poor fluid intake, rectal bleeding, rectal pain, vomiting, others Genitourinary: denies: burning, dysuria, flank pain, frequency, hematuria, incontinence, penile discharge, penile sore, pain, testicle pain, testicle swelling, urgency, others Neurological: denies: dizziness, fainting, headache, left sided numbness, left sided weakness, numbness, paresthesia, pre-existing deficit, right sided numbness, right sided weakness, seizure, speech problems, tingling, tremors, weakness, others Musculoskeletal: denies: back pain, gout, joint pain, joint swelling, muscle pain, muscle stiffness, neck pain, others Integumetry: denies: bruises, change in color, change in hair/nails, dryness, laceration, lesions, lumps, rash, wounds, others Allergic/Immunocompromised: denies: Difficulty Healing, Frequent Infections, Hives, Itching, others Hematologic/Lymphatic: denies: anemia, blood clots, easy bleeding, easy bruising, swollen glands, others Endocrine: denies: excessive hunger, excessive sweating, excessive thirst, excessive urination, flushing, intolerance to cold, intolerance to heat, unexp lained weight gain, unexplained weight loss, others Psychiatric: denies: anxiety, bipolar disorder, depression, hopeless, panic disorder, schizophrenia, sleepless, suicidal, others All Other Systems: Reviewed and Negative Physical Exam General Appearance: No Apparent Distress, Normal HEENT: Normal ENT Inspection, Pharynx Normal, TMs Normal Neck: Full Range of Motion, Non-Tender, Normal, Normal Inspection Respiratory: Chest Non-Tender, Lungs Clear, No Accessory Muscle Use, No Respiratory Distress, Normal Breath Sounds Cardiovascular: No Edema, No JVD, No Murmur, No Gallop, Normal Peripheral Pulse s, Regular Rate/Rhythm Breast Exam: Deferred Gastrointestinal: No Organomegaly, Non Tender, No Pulsatile Mass, Normal Bowel Sounds, Soft Genitalia: Deferred Pelvic: Deferred Rectal: Deferred Extremities: No calf tenderness, Normal capillary refill, Normal inspection, Normal range of motion, Non-tender, No pedal edema Musculoskeletal : Apperance: Normal Neurologic: Alert, patient scheduler II-XII nml as Tested, No Motor Deficits, Normal Affect, Normal Mood, No Sensory Deficits Cerebellar Function: Normal Reflexes: Normal Skin: Dry, Normal Color, Warm Lymphatic: No Adenopathy Was a procedure done? Was a procedure done?: No Differential Dx Considerations may include: ACS, CVA, viral syndrome, electrolyte abnormality X-Ray, Labs, Meds, VS Vital Signs Date Time Temp Pulse Resp B/P (MAP) Pulse Ox O2 Delivery O2 Flow Rate FiO2 04/30/25 06:56 81 04/30/25 06:33 77 20 98 Room Air* 0 21 04/30/25 06:33 98.1 77 18 176/73 (107) 98 98.1 04/30/25 06:03 80 04/30/25 05:55 98.0 78 20 178/74 (108) 100 98.0 Lab Test 04/30/25 07:05 Range/Units White Blood Count 9.4 4.4-10.8 10^3/uL Red Blood Count 3.63 L 4.5-5.90 10^6/uL Hemoglobin 10.0 L 13.5-17.5 g/dL Hematocrit 31.1 L 41.0-53.0 % Mean Corpuscular Volume 85.8 80.0-100.0 fL Mean Corpuscular Hemoglobin 27.5 L 28.0-32.0 pg Mean Corpuscular Hemoglobin Concent 32.1 32.0-36.0 g/dL Red Cell Distribution Width 21.3 H 11.8-14.3 % Platelet Count 249 140-450 10^3/uL Mean Platelet Volume 8.4 6.9-10.8 fL Neutrophils (%) (Auto) 80.0 37.0-80.0 % Lymphocytes (%) (Auto) 8.0 L 10.0-50.0 % Monocytes (%) (Auto) 8.4 0.0-12.0 % Eosinophils (%) (Auto) 2.8 0.0-7.0 % Basophils (%) (Auto) 0.8 0.0-2.0 % Neutrophils # (Auto) 7.5 1.6-8.6 10 ^3/uL Lymphocytes # (Auto) 0.7 0.4-5.4 10 ^3/uL Monocytes # (Auto) 0.8 0-1.3 10 ^3/uL Eosinophils # (Auto) 0.3 0-0.8 10 ^3/uL Basophils # (Auto) 0.1 0-0.2 10 ^3/uL Nucleated Red Blood Cells 0.0 % Sodium Level 144 136-145 mmol/L Potassium Level 3.9 3.5-5.1 mmol/L Chloride Level 108 H 98-107 mmol/L Carbon Dioxide Level 18 L 20-31 mmol/L Anion Gap 18 H 5-15 Blood Urea Nitrogen 43 H 9-23 mg/dL Creatinine 9.52 H 0.700-1.30 mg/dL Glomerular Filtration Rate Calc 5 >90 mL/min BUN/Creatinine Ratio 4.5 L 10.0-20.0 Serum Glucose 95 74-106 mg/dL Calcium Level 7.3 L 8.7-10.4 mg/dL Troponin I High Sensitivity 104 *H </=54 ng/L Time of 1ST Reevaluation: 06:50 Reevaluation 1ST: Unchanged Patient Education/Counseling: Diagnosis, Treatment, Prognosis Family Education/Counseling: No Family Present SEPSIS Sepsis Screen Date sepsis recognized/suspect: Apr 30, 2025 Time Sepsis recognized/suspect: 0555 Recent Procedure: No On Antibiotic Therapy: No Respiratory Rate >20: No Heart Rate >90: No Temp<36 C (96.8 F) or >38.3 C: No SBP <90 or MAP <65 mmHG: No New Acute Mental Status Change: No Is the patient on CPAP, BIPAP,: No Physician Orders Electrocardigram (04/30/25 09:06) Chest Portable (04/30/25 06:12) Troponin-I Hs (04/30/25 07:12) Troponin-I Hs (04/30/25 09:12) Vital Signs Date Time Temp Pulse Resp B/P (MAP) Pulse Ox O2 Delivery O2 Flow Rate FiO2 04/30/25 06:56 81 04/30/25 06:33 77 20 98 Room Air* 0 21 04/30/25 06:33 98.1 77 18 176/73 (107) 98 98.1 04/30/25 06:03 80 04/30/25 05:55 98.0 78 20 178/74 (108) 100 98.0 Laboratory Tests Test 04/30/25 07:05 White Blood Count 9.4 10^3/uL (4.4-10.8) Departure 1 Departure Time of Disposition: 08:00 (Patient presented with chest pain that was concerning for possible STEMI, ACS, PE, Pneumonia, Muscle Strain, COPD, Dissection. Data: 1. I ordered and reviewed the result of at least 3 labs including a CBC, BMP, and Troponin. 2. I independently interpreted the following tests: EKG which shows sinus arrhythmia and Chest X-ray which shows stable vascular congestion.Risk:This patient has a high risk of morbidity due to further diagnostic testing or treatment and may suffer from an acute cardiac or respiratory disorder. Workup reveals concern for ACS and patient should be admitted for further workup and possible expert consultation. ) Impression: Primary Impression: Acute chest pain Additional Impressions: Shortness of breath ESRD (end stage renal disease) on dialysis Disposition: ADMITTED INPATIENT Admit to: Med Surg Condition: Serious Critical Care Note Critical Care Time?: Yes Critical care comment: Acute chest pain Authorized and Performed by: Priya Lorenz MD Total critical care time: Approximately 42 minutes Due to a high probability of clinically significant, life threatening deterioration, the patient required my highest level of preparedness to intervene emergently and I personally spent this critical care time directly and personally managing the patient. This critical care time included obtaining a history; examining the patient; pulse oximetry; ordering and review of studies; arranging urgent treatment with development of a management plan; evaluation of patient's response to treatment; frequent reassessment; and, discussions with other providers. This critical care time was performed to assess and manage the high probability of imminent, life-threatening deterioration that could result in multi-organ failure. It was exclusive of separately billable procedures and treating other patients and teaching time. Please see my other sections and the rest of the note for further information on patient assessment and treatment. Stability Stability form required: No I personally scribed for PRIYA LORENZ MD ([email or web address]) on 04/30/25 at 06:21. Electronically submitted by Curt Mckay ([email or web address]). PRIYA LORENZ MD Apr 30, 2025 06:21
[2025-04-30 06:33] VITALS: PULSE 77; RESP 20; O2SAT 98
--- NOTE | 2025-04-30 06:59 | ECG ---
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
--- NOTE | 2025-04-30 07:01 | DVH ---
CHEST RADIOGRAPH Indication: chest pain Technique: Single frontal view of the chest was obtained COMPARISON: XY CHEST PORTABLE on DOS: 11/04/24, XY CHEST PORTABLE on DOS: 10/26/24, XY CHEST PORTABLE on DOS: 09/24/24, XY CHEST PORTABLE on DOS: 01/15/24, XY CHEST PORTABLE on DOS: 01/13/24 FINDINGS: Lines and Tubes: None Lungs: Diffuse increased prominence of the pulmonary vasculature without evidence of focal consolidat ion. Stable small left pleural effusion. No pneumothorax. Cardiomediastinal contours: Cardiomegaly. Bones: Unremarkable IMPRESSION: 1. Stable cardiomegaly, small left pleural effusion and diffuse increased prominence of the pulmonary vasculature.
[2025-04-30 07:30] VITALS: TEMP 98
[2025-04-30 07:32] LABS: Potassium 3.9 mmol/L (3.5-5.1); Sodium 144 mmol/L (136-145)
[2025-04-30 07:33] LABS: Anion Gap 18 (5-15)
[2025-04-30 07:38] LABS: BUN/Creatinine Ratio 4.5 (10.0-20.0); Glucose 95 mg/dL (74-106); Hematocrit 31.1 % (41.0-53.0); Hemoglobin 10.0 g/dL (13.5-17.5); Mean Corpuscular Hemoglobin 27.5 pg (28.0-32.0); Mean Corpuscular Volume 85.8 fL (80.0-100.0); Nucleated Red Blood Cells % 0.0 %
[2025-04-30 07:39] LABS: Blood Urea Nitrogen 43 mg/dL (9-23); Calcium 7.3 mg/dL (8.7-10.4); Carbon Dioxide 18 mmol/L (20-31); Chloride 108 mmol/L (98-107)
[2025-04-30] MEDS ORDERED: MORPHINE SULFATE INJ 2 MG/ml SYRG IV PRN (09:15)
[2025-04-30] MEDS ORDERED: MORPHINE SULFATE 4 MG/ML SYR/VIAL IV PRN (09:15)
[2025-04-30] MEDS ORDERED: ACETAMINOPHEN 325 MG TAB PO PRN (09:15)
[2025-04-30] MEDS ORDERED: PATIENTS OWN MEDICATION (Alprazolam 1 TAB) PO PRN (09:15)
[2025-04-30] MEDS ORDERED: ONDANSETRON HCL 4 MG/2 ML VIAL IV PRN (09:15)
[2025-04-30] MEDS ORDERED: NITROGLYCERIN 0.4 MG SL TAB SL PRN ×2 (09:15)
--- NOTE | 2025-04-30 09:24 | DVHHP2 ---
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 Patient reports that the pain is 8/10 sharp and intermittent in nature. He states that there are no triggering or alleviating factors. He states that he lives at home with his sister. He also reports that he is taking all of his medications. Upon examination noted are scabs throughout the face and bilateral arms. Patient reports that he scratches his body from time to time. Patient also states that he fell 1 month ago while standing and hit the top front of his head on the ground and states he did not lose consciousness. Patient denies any recent sick contacts, recent travels, recent ingestion of spoiled food, fever, chills, lightheadedness, weakness, dizziness, abdominal pain, nausea, vomiting, diarrhea, or urinary symptoms. 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: CVA Hepatobiliary: Hep A/B/C Renal/: Chronic renal failure Past Surgical History: Hernia Repair, Other (Right 2nd finger partial amputation) Family History: Other (Both parents ) Smoke: 1 pack per day ALCOHOL: none Drugs: Marijuana Lives: with Family Domestic Violence: Neg Review of Systems Cardiovascular: Chest Pain Allergies: Coded Allergies: NO KNOWN ALLERGIES (Unverified , 10/17/22) Medications Current Medications Medications Dose Ordered Sig/Miguel Route Start Time Stop Time Status Last Admin Dose Admin Aspirin 81 mg DAILY PO 04/30/25 10:00 UNV Atorvastatin Calcium 40 mg HS PO 04/30/25 22:00 UNV Morphine Sulfate 2 mg Q30MP PRN IV 04/30/25 09:15 UNV Acetaminophen 650 mg Q6HP PRN PO 04/30/25 09:15 UNV Nitroglycerin 0.4 mg Q5MINP PRN SL 04/30/25 09:15 UNV Ondansetron HCl 4 mg Q4HP PRN IV 04/30/25 09:15 UNV Nitroglycerin 0.4 mg Q5MINP PRN SL 04/30/25 09:15 UNV Morphine Sulfate 2 mg Q30M PRN IV 04/30/25 09:15 UNV Furosemide 40 mg DAILY IV 04/30/25 10:00 UNV Exam Vital Signs Vital Signs Date Time Temp Pulse Resp B/P (MAP) Pulse Ox O2 Delivery O2 Flow Rate FiO2 04/30/25 07:30 98.0 80 22 161/82 (108) 94 98.0 04/30/25 06:33 Room Air* 0 21 General Appearance: Alert, Oriented X3, Cooperative, mild distress HEENT: Atraumatic, PERRLA, EOMI Respiratory: Normal air movement Cardiovascular: Normal S1, Normal S2 Abdominal: Normal bowel sounds, Soft Extremities: Normal pulses Neuro: Normal speech, Strength at 5/5 X4 ext, Normal tone, Sensation intact Psych/Mental Status: Mental status NL, Mood NL Labs/Xrays Labs Test 04/30/25 08:20 04/30/25 07:05 Range/Units Troponin I High Sensitivity 105 *H </=54 ng/L White Blood Count 9.4 4.4-10.8 10^3/uL Red Blood Count 3.63 L 4.5-5.90 10^6/uL Hemoglobin 10.0 L 13.5-17.5 g/dL Hematocrit 31.1 L 41.0-53.0 % Mean Corpuscular Volume 85.8 80.0-100.0 fL Mean Corpuscular Hemoglobin 27.5 L 28.0-32.0 pg Mean Corpuscular Hemoglobin Concent 32.1 32.0-36.0 g/dL Red Cell Distribution Width 21.3 H 11.8-14.3 % Platelet Count 249 140-450 10^3/uL Mean Platelet Volume 8.4 6.9-10.8 fL Neutrophils (%) (Auto) 80.0 37.0-80.0 % Lymphocytes (%) (Auto) 8.0 L 10.0-50.0 % Monocytes (%) (Auto) 8.4 0.0-12.0 % Eosinophils (%) (Auto) 2.8 0.0-7.0 % Basophils (%) (Auto) 0.8 0.0-2.0 % Neutrophils # (Auto) 7.5 1.6-8.6 10 ^3/uL Lymphocytes # (Auto) 0.7 0.4-5.4 10 ^3/uL Monocytes # (Auto) 0.8 0-1.3 10 ^3/uL Eosinophils # (Auto) 0.3 0-0.8 10 ^3/uL Basophils # (Auto) 0.1 0-0.2 10 ^3/uL Nucleated Red Blood Cells 0.0 % Sodium Level 144 136-145 mmol/L Potassium Level 3.9 3.5-5.1 mmol/L Chloride Level 108 H 98-107 mmol/L Carbon Dioxide Level 18 L 20-31 mmol/L Anion Gap 18 H 5-15 Blood Urea Nitrogen 43 H 9-23 mg/dL Creatinine 9.52 H 0.700-1.30 mg/dL Glomerular Filtration Rate Calc 5 >90 mL/min BUN/Creatinine Ratio 4.5 L 10.0-20.0 Serum Glucose 95 74-106 mg/dL Calcium Level 7.3 L 8.7-10.4 mg/dL CHEST RADIOGRAPH Indication: chest pain Technique: Single frontal view of the chest was obtained COMPARISON: XY CHEST PORTABLE on DOS: 11/04/24, XY CHEST PORTABLE on DOS: 10/26/24, XY CHEST PORTABLE on DOS: 09/24/24, XY CHEST PORTABLE on DOS: 01/15/24, XY CHEST PORTABLE on DOS: 01/13/24 FINDINGS: Lines and Tubes: None Lungs: Diffuse increased prominence of the pulmonary vasculature without evidence of focal consolidation. Stable small left pleural effusion. No pneumothorax. Cardiomediastinal contours: Cardiomegaly. Bones: Unremarkable IMPRESSION: 1. Stable cardiomegaly, small left pleural effusion and diffuse increased prominence of the pulmonary vasculature. SEPSIS Sepsis Screen Date sepsis recognized/suspect: Apr 30, 2025 Time Sepsis recognized/suspect: 06 Recent Procedure: No On Antibiotic Therapy: No Respiratory Rate >20: No Heart Rate >90: No Temp<36 C (96.8 F) or >38.3 C: No SBP <90 or MAP <65 mmHG: No New Acute Mental Status Change: No Is the patient on CPAP, BIPAP,: No Physician Orders Electrocardigram (04/30/25 09:06) Chest Portable (04/30/25 06:12) Troponin-I Hs (04/30/25 09:12) Admit (04/30/25 09:04) Code Status (04/30/25 09:04) Vital Signs .PER UNIT PROTOCOL (04/30/25 09:04) Assistant Press Operator Offset (04/30/25 09:04) Cardiac Diet-2gna,Lofat,Lochol (04/30/25 Breakfast) Aspirin Tablet (04/30/25 10:00) Atorvastatin (Lipitor) (04/30/25 22:00) Morphine Sulfate Injection (04/30/25 09:15) Acetaminophen Tablet (Tylenol Tablet) (04/30/25 09:15) Complete Blood Count (05/01/25 04:00) Basic Metabolic Panel (05/01/25 04:00) Magnesium (05/01/25 04:00) Lipid Panel (05/01/25 04:00) Echo 2d Mode Cardiac Dop (04/30/25 09:04) Nitroglycerin Sublingual (Ntrostat Subli (04/30/25 09:15) Ondansetron Hcl (Zofran) (04/30/25 09:15) Electrocardigram (05/01/25 04:00) Troponin-I Hs (04/30/25:04) Cardiac Rehabilitation - Outpa (04/30/25 ) Nitroglycerin Sublingual (Ntrostat Subli (04/30/25 09:15) Morphine Sulfate Injection (04/30/25 09:15) Stat Ekg For Chest Pain (04/30/25 09:04) Notify Of Changes From Base (04/30/25 09:04) Scuba Diving Teacher For 24 Hours (04/30/25 09:04) Emergency Dysrhythmia Protocol (04/30/25 09:04) Rhythm Strips Once Every Shift (04/30/25 09:04) Oxygen By Nasal Cannula (04/30/25:04) *[facility] (04/30/25 09:04) Urinalysis (04/30/25 09:04) Drug Screen (04/30/25 09:04) Hemoglobin A1c (04/30/25:04) Free T4 (Free Thyroxine) (04/30/25 09:04) Thyroid Stimulating Hormone (04/30/25 09:04) B-Type Natriuretic Peptide (04/30/25 09:09) Furosemide Injection (Lasix Injection) (04/30/25 10:00) Vital Signs Date Time Temp Pulse Resp B/P (MAP) Pulse Ox O2 Delivery O2 Flow Rate FiO2 04/30/25 07:30 98.0 80 22 161/82 (108) 94 98.0 04/30/25 06:56 81 04/30/25 06:33 77 20 98 Room Air* 0 21 04/30/25 06:33 98.1 77 18 176/73 (107) 98 98.1 04/30/25 06:03 80 04/30/25 05:55 98.0 78 20 178/74 (108) 100 98.0 Laboratory Tests Test 04/30/25 07:05 White Blood Count 9.4 10^3/uL (4.4-10.8) Assessment/Plan Assessment/Plan Assessment Chest pain likely due to tobacco and drug use Elevated troponins likely due to demand ischemia Anemia likely due to chronic kidney disease Tobacco use Marijuana use Acute on chronic CHF exacerbation Acute hypoxic respiratory failure Cardiomegaly Small left pleural effusion likely due to CHF Obesity ESRD on HD (M/W/F) History of CVA History of hypertension History of CA History of hernia repair History of 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 History of hep C History of hyperlipidemia Noncompliance with medical treatment History of fall 1 month ago and struck his head Plan Admit to tele CT head ACS workup Antiemetics Pain management BNP Diurese UA UDS Echo ordered TSH Lipid panel Free T4 A1c Supportive oxygen Strict I&Os Daily weight Diet Home medications reconciled DVT prophylaxis-not indicated patient ambulating PUD prophylaxis-not indicated no history of GERD or GI bleed Discussed plan of care with patient and nurse Nephrology consult Rounding team consider Cardiology consult if troponins trend upwards Counseled patient on cessation of tobacco and marijuana use Counseled patient on lifestyle modifications, diet, and exercise [id number] Advanced care planning discussed [id number] Behavior change smoking greater than 10 minutes about use of other options also gave option of nicotine patch [id number] Preventive counseling healthy eating habits, physical activity, and regular checkups Plan discussed with: Patient My Orders Orders - EDMUNDO MAHARAJ Procedure Category Date Status Time Admit ADMIT 04/30/25 Transmitted 09:04 Code Status CODE 04/30/25 Transmitted 09:04 Vital Signs RAÚL 04/30/25 In Process 09:04 Assistant Press Operator Offset RAÚL 04/30/25 In Process 09:04 Cardiac DIET 04/30/25 Transmitted Diet-2gna,Lofat,Lochol Breakfast Aspirin Tablet PHA 04/30/25 Logged 10:00 Atorvastatin (Lipitor) PHA 04/30/25 Logged 22:00 Morphine Sulfate PHA 04/30/25 Logged Injection 09:15 Acetaminophen Tablet [facility] 04/30/25 Logged (Tylenol Tablet) 09:15 Complete Blood Count LAB 05/01/25 Verified 04:00 Basic Metabolic Panel LAB 05/01/25 Verified 04:00 Magnesium LAB 05/01/25 Verified 04:00 Lipid Panel LAB 05/01/25 Verified 04:00 Echo 2d Mode Cardiac US 04/30/25 Logged DOP 09:04 Nitroglycerin [facility] 04/30/25 Logged Sublingual (Ntrostat 09:15 Ondansetron Hcl PHA 04/30/25 Logged (Zofran) 09:15 Electrocardigram EKG 05/01/25 Logged 04:00 Troponin-I Hs LAB 04/30/25 Logged 09:04 Cardiac RAÚL 04/30/25 In Process Rehabilitation - Outpa Nitroglycerin [facility] 04/30/25 Logged Sublingual (Ntrostat 09:15 Morphine Sulfate [facility] 04/30/25 Logged Injection 09:15 Stat Ekg For Chest [facility] 04/30/25 In Process Pain 09:04 Notify Of Changes [facility] 04/30/25 In Process From Base 09:04 Scuba Diving Teacher For [facility] 04/30/25 In Process 24 Hours 09:04 Emergency Dysrhythmia [facility] 04/30/25 In Process Protocol 09:04 Rhythm Strips Once [facility] 04/30/25 In Process Every Shift 09:04 Oxygen By Nasal RT 04/30/25 Transmitted Cannula 09:04 *[facility] CONS 04/30/25 Transmitted -[place] 09:04 Urinalysis LAB 04/30/25 Logged 09:04 Drug Screen LAB 04/30/25 Logged 09:04 Hemoglobin A1c LAB 04/30/25 Logged 09:04 Free T4 (Free LAB 04/30/25 Logged Thyroxine) 09:04 Thyroid Stimulating LAB 04/30/25 Logged Hormone 09:04 B-Type Natriuretic LAB 04/30/25 Transmitted Peptide 09:09 Furosemide Injection PHA 04/30/25 Logged (Lasix Injection) 10:00 Date of Service: Apr 30, 2025 Billing Provider: EDMUNDO MAHARAJP Common Visit Codes: 26485-FFSFQCC INP/OBS CARE (HIGH) Secondary Visit Codes: [id number] COUNSELING IND, 84652-BMCCL CHNG SMOKING >10MIN, [id number] CARE PLAN 30 MINUTES EDMUNDO MAHARAJ [facility] Apr 30, 2025 09:24
[2025-04-30 09:30] VITALS: BP 134/51; PULSE 75; RESP 19; O2SAT 94
[2025-04-30] MEDS ORDERED: ALPRAZolam 0.5 MG TAB PO PRN (09:30)
--- NOTE | 2025-04-30 09:52 | DVH ---
CT HEAD WITHOUT CONTRAST INDICATION: fall head injury EXAM DATE: 04/30/2025 09:23 AM COMPARISON: None RADIATION DOSE: CTDIvol: 60 mGy, DLP: 1064 mGy*cm PROCEDURE: CT scans of the head were obtained from the vertex to the skull base. Sagittal and coronal reconstructions were provided. All CT scans at this medical facility are performed using dose modulation techniques as appropriate t o a performed exam including the following: Automated exposure control was utilized; adjustment of th e MA and/or KV according to patient size; and use of iterative reconstruction technique. FINDINGS: There is sulcal and ventricular prominence. The brainshows normal morphology and yoon-whi te matter differentiation, without intracranial hemorrhage, extra-axial fluid collection, mass effect or acute large vessel infarct. The ventricles are normal in size. The basal cisterns are patent. The skull and visible facial bones are intact. The paranasal sinuses, mastoid air cells and middle ear c avities are well-aerated. The soft tissues of the scalp are unremarkable. IMPRESSION: No acute intracranial abnormality.
[2025-04-30] MEDS ORDERED: SERTRALINE HCL 50 MG TAB PO SCH (10:00)
[2025-04-30] MEDS ORDERED: PATIENTS OWN MEDICATION (Nifedipine (Nifedipine Er) 1 TAB) PO SCH (10:00)
[2025-04-30] MEDS ORDERED: PATIENTS OWN MEDICATION (Hydralazine Hcl 1 TAB) PO SCH (10:00)
[2025-04-30] MEDS ORDERED: FUROSEMIDE 40 MG/4 ML VIAL IV SCH (10:00)
[2025-04-30] MEDS ORDERED: TAMSULOSIN HYDROCHLORIDE 0.4 MG CAP PO SCH (10:00)
[2025-04-30] MEDS ORDERED: PATIENTS OWN MEDICATION (Sevelamer Carbonate (Renvela) 2 TAB) PO SCH (12:00)
[2025-04-30] MEDS ORDERED: SEVELAMER 800 MG TAB PO SCH (12:00)
[2025-04-30] MEDS ORDERED: CLONIDINE HYDROCHLORIDE 0.3 MG PO SCH (14:00)
--- NOTE | 2025-04-30 17:46 | DVHSR ---
APPROVED REPORT EXAM: Two-dimensional and M-mode echocardiogram with Doppler and color Doppler. Blood Pressure: 161/82 mmHg INDICATION Chest Pain RISK FACTORS Height: 5'7, Weight: 191 DIMENSIONS LVDd5.2 (3.8-5.7cm)LA (2D)6.0 (1.9-4.0cm)Aortic Root3.7 (2.0-3.7cm) LVDs3.2 (2.5-4.0cm)LA (MM) (1.9-4.0cm)Aortic Cusp Exc1.4 (1.5-2.0cm) EF (%) 65.0 (55-70%)Rt. Atrium4.2 (1.9-4.0cm)Asc. Aorta cm IVSd1.6 (0.7-1.1cm)RV (D) (1.8-2.4cm) PWd1.6 (0.7-1.1cm) Mitral Valve MitralMitral Stenosis E wave1.44m/sMV Mean GR.mmHg A wave1.28m/sMV Peak GR.94mmHg E/A ratio1.12D MVAcm2 DECEL [id number] 1/2 Tim[place] Aortic Valve Aortic ValveAortic Stenosis V11.36m/Nba Mean GR.28mmHg V23.54m/Nba Peak GR.48mmHg LVOT Diameter1.8 (1.8-2.4cm)Doppler AVA0.98cm2 AI P 1/2 Rxdz219.93ms Tricuspid Valve TR Velocity2.99m/s [id number] Other Information Technically limited study due to pt taking deep breaths in and holding breathe, pt moving Conclusion Left ventricle: Moderate concentric left ventricular hypertrophy was seen. LVEF was 55-60%. Pseudo normal LV filling was observed. There was no gross wall motion abnormality. Right ventricle was normal-sized. Left atrium was moderately dilated. Right atrium was mildly dilat ed. Aortic valve was not well visualized. Moderate to severe aortic stenosis with peak/mean pressure gra dient of 55/29 mm Hg was observed. Calculated aortic valve area was 1.0 cm. Up to moderate aortic insufficiency was observed. Consider TAMARA for further evaluation of aortic valve. Mild mitral/tricuspid regurgitation was observed. Pulmonary valve was not well visualized. Right ventricular systolic pressure was assessed at 45 mm Hg. There was trace pericardial effusion.
[2025-04-30] MEDS ORDERED: ATORVASTATIN 20 MG TAB PO SCH (22:00)
--- NOTE | 2025-05-03 08:05 | ECG ---
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
== END 2025-04-30 11:24 | disposition left against medical advice (07) | DRG 280 ==
LOC: ER 05:55 → EDBD 05:55 → OVERFLOW 09:04
DX: I13.2 Hypertensive heart and chronic kidney disease with heart failure and with stage 5 chronic kidney disease, or end stage renal disease (principal); I50.33 Acute on chronic diastolic (congestive) heart failure; I21.A1 Myocardial infarction type 2; J96.01 Acute respiratory failure with hypoxia; N18.6 End stage renal disease; D63.1 Anemia in chronic kidney disease; E78.5 Hyperlipidemia, unspecified; E66.9 Obesity, unspecified; Z99.2 Dependence on renal dialysis; Z68.30 Body mass index [BMI] 30.0-30.9, adult; Z53.29 Procedure and treatment not carried out because of patient's decision for other reasons; F41.9 Anxiety disorder, unspecified; F17.210 Nicotine dependence, cigarettes, uncomplicated; F12.90 Cannabis use, unspecified, uncomplicated; Z86.19 Personal history of other infectious and parasitic diseases; I25.2 Old myocardial infarction; Z91.81 History of falling; Z91.199 Patient's noncompliance with other medical treatment and regimen due to unspecified reason; Z89.021 Acquired absence of right finger(s); Z86.73 Personal history of transient ischemic attack (TIA), and cerebral infarction without residual deficits
CPT/HCPCS: 36415; 70450; 71045; 80048; 83036; 83880; 84439; 84443; 84484; 85025; 93005; 93306; 99291; G0378

== ENCOUNTER 2025-05-02 00:42 | Inpatient (IN) | payer OTHER, MEDICAID ==
[~2025-05-02] VITALS: Ht 162.6 cm; Wt 79.0 kg
[2025-05-02] VITALS (8 sets, daily range): BP systolic 131–140; BP diastolic 59–82; PULSE 64–87; RESP 18–22; TEMP 97.5–98.1; O2SAT 91–95
--- NOTE | 2025-05-02 01:00 | ED.PDOC ---
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 Patient has been missing/skipping/leaving early on his dialysis sessions for the past few weeks. Was admitted here 2 days ago for CHF exacerbation, but signed AMA on the same day. Patient coming in again for shortness of breath and chest pains, saturating 84% on room air, with a blood pressure of 213/84 mm Hg Chief Complaint: Shortness of Breath Time Seen by MD: 00:59 Primary Care Provider: n/a Reviewed Notes: Nurses Notes Allergies: Coded Allergies: NO KNOWN ALLERGIES (Unverified , 10/17/22) Home Meds Active Scripts Atorvastatin Calcium (ATORVASTATIN CALCIUM) 40 Mg Tab, 40 MG PO DAILY for 30 Days, #30 TAB 0 Refills Prov:RANJAN SZYMANSKI RESIDENT 11/10/24 Reported Medications Sertraline HCl (Sertraline HCl) 50 Mg Tab, 50 MG PO DAILY, TAB 11/06/24 Clonidine Hydrochloride (Clonidine Hydrochloride) 0.3 Mg Tab, 0.3 MG PO TID, TAB 11/06/24 Sevelamer Carbonate (Renvela) 800 Mg Tab, 2 TAB PO TIDWM for 90 Days, #540 10/27/24 Alprazolam (Alprazolam) 1 Mg Tab, 1 TAB PO DAILYPRN PRN for ANXIETY for 30 Days, #30 10/27/24 Nifedipine (Nifedipine Er) 60 Mg Tab, 1 TAB PO DAILY 01/14/24 Tamsulosin Hcl (Tamsulosin Hcl) 0.4 Mg Cap, 1 CAP PO DAILY 01/14/24 Hydralazine Hcl (Hydralazine Hcl) 100 Mg Tab, 1 TAB PO DAILY for 30 Days, #30 01/14/24 Information Source: Patient, Relative Mode of Arrival: Ambulatory Severity: Moderate Timing: Days Duration: Since onset Review of Systems REVIEW OF SYSTEMS: No fever, no chills, or fatigue (+) diaphoresis HEENT: No sore throat, no earache, no congestion, no neck pain. Cardiac: (+) chest pain. No palpitations. Lungs: (+) shortness of breath, no cough. GI: No nausea, no vomiting, no diarrhea, no constipation, no abdominal pain : No dysuria, frequency, or urgency. No hematuria. Musculoskeletal: No joint pain , no joint swelling, no extremity edema. Skin: No rash, no itching. Neuro: No headache, no dizziness, no weakness Vital Signs Vital Signs Date Time Temp Pulse Resp B/P (MAP) Pulse Ox O2 Delivery O2 Flow Rate FiO2 05/02/25 04:00 80 05/02/25 03:00 21 157/61 (93) 05/02/25 01:30 Facial BiPAP Mask 40 05/02/25 01:22 91 4 05/02/25 01:20 98.5 98.5 Physical Exam General: Awake, alert and oriented. No acute distress. Skin: Skin in warm, dry and intact. Appropriate color for ethnicity. Nailbeds pink with no cyanosis. HEENT: The head is normocephalic and atraumatic. Conjunctivae are clear without exudates or hemorrhage. Sclera is non-icteric. EOM are intact. No signs of nystagmus. Eyelids are normal in appearance without swelling or lesions. Oral mucosa is pink and moist. Enlarged tongue Cardiac: Heart rate and rhythm are normal. No murmurs, gallops, or rubs are auscultated. Respiratory: Patient is tachypneic with labored breathing, Bilateral rales Abdominal: Abdomen is soft, non-tender without distention. Bowel sounds are present and normoactive in all four quadrants. Extremities: Bilateral lower extremity pitting edema Neurological: The patient is awake, alert and oriented to person, place, and time with normal speech. Speech is clear. There is no facial asymmetry. Past Medical History PAST MEDICAL HISTORY: CHF, CVA, ESRD, HTN, MT Past Medical History (Other): Dialysis Saturday Surgical History: Hernia Repair Family History Family History: Reviewed,noncontributory to illness Social History Smoker: Non-Smoker Alcohol: Denies ETOH Use Drugs: Denies Drug Use Lives In: Home Was a procedure done? Was a procedure done?: No EKG EKG : Pulse Rate (adult): 89 Cardiac Rhythm: NSR Comments Prolonged IL interval Differential Dx Considerations may include: Anemia, electrolyte imbalance, pneumonia, congestive heart failure, end-stage renal disease, noncompliance, other X-Ray, Labs, Meds, VS Vital Signs Date Time Temp Pulse Resp B/P (MAP) Pulse Ox O2 Delivery O2 Flow Rate FiO2 05/02/25 04:00 80 05/02/25 03:00 88 21 157/61 (93) 05/02/25 02:42 88 18 171/57 05/02/25 01:47 87 18 206/82 05/02/25 01:43 206/82 05/02/25 01:30 87 206/82 Facial BiPAP Mask 40 05/02/25 01:22 87 18 91 Nasal Cannula* 4 36 05/02/25 01:20 98.5 87 18 206/82 (123) 91 98.5 05/02/25 01:05 28 97 Nasal Cannula* 4 36 05/02/25 01:00 89 05/02/25 00:56 98.2 66 26 213/84 (127) 84 98.2 05/02/25 00:56 66 05/02/25 00:46 89 Lab Test 05/02/25 04:26 05/02/25 02:30 05/02/25 01:30 05/02/25 01:28 Range/Units Troponin I High Sensitivity 87 *H 98 *H </=54 ng/L Blood Gas Specimen Type Arterial Blood Gas Sample Site Right brachial Blood Gas Patient Temperature 37.0 Arterial Blood Date Drawn [id number] Arterial Blood pH 7.365 7.350-7.450 Arterial Blood Partial Pressure CO2 27.3 L 35.0-48.0 mmHg Arterial Blood Partial Pressure O2 84.1 83.0-108.0 mmHg Arterial Blood HCO3 15.3 L 21.0-28.0 mmol/L Arterial Blood Oxygen Saturation 94.8 94.0-98.0 % Arterial Blood Base Excess -8.8 L -2.0-3.0 mmol/L Arterial Blood Oxyhemoglobin 93.4 L 94.0-98.0 % Arterial Blood Carboxyhemoglobin 1.4 0.5-1.5 % Arterial Blood Methemoglobin 0.1 0.0-1.5 % Daniel Test N/a Blood Gas Total Hemoglobin 10.50 L 13.5-17.5 g/dL Blood Gas Liter Flow 4.00 Blood Gas Modality Nasal cannula FiO2 % 36.0 Influenza Type A Antigen Negative Negative Influenza Type B Antigen Negative Negative SARS-CoV-2 Antigen (Rapid) Negative NEGATIVE Test 05/02/25 01:05 Range/Units White Blood Count 10.1 4.4-10.8 10^3/uL Red Blood Count 3.57 L 4.5-5.90 10^6/uL Hemoglobin 9.8 L 13.5-17.5 g/dL Hematocrit 30.8 L 41.0-53.0 % Mean Corpuscular Volume 86.1 80.0-100.0 fL Mean Corpuscular Hemoglobin 27.3 L 28.0-32.0 pg Mean Corpuscular Hemoglobin Concent 31.7 L 32.0-36.0 g/dL Red Cell Distribution Width 20.9 H 11.8-14.3 % Platelet Count 250 140-450 10^3/uL Mean Platelet Volume 8.0 6.9-10.8 fL Neutrophils (%) (Auto) 86.2 H 37.0-80.0 % Lymphocytes (%) (Auto) 3.9 L 10.0-50.0 % Monocytes (%) (Auto) 7.8 0.0-12.0 % Eosinophils (%) (Auto) 1.4 0.0-7.0 % Basophils (%) (Auto) 0.7 0.0-2.0 % Neutrophils # (Auto) 8.7 H 1.6-8.6 10 ^3/uL Lymphocytes # (Auto) 0.4 0.4-5.4 10 ^3/uL Monocytes # (Auto) 0.8 0-1.3 10 ^3/uL Eosinophils # (Auto) 0.1 0-0.8 10 ^3/uL Basophils # (Auto) 0.1 0-0.2 10 ^3/uL Nucleated Red Blood Cells 0.0 % Sodium Level 142 136-145 mmol/L Potassium Level 4.5 3.5-5.1 mmol/L Chloride Level 106 98-107 mmol/L Carbon Dioxide Level 17 L 20-31 mmol/L Anion Gap 19 H 5-15 Blood Urea Nitrogen 56 #H 9-23 mg/dL Creatinine 10.33 *H 0.700-1.30 mg/dL Glomerular Filtration Rate Calc 5 >90 mL/min BUN/Creatinine Ratio 5.4 L 10.0-20.0 Serum Glucose 97 74-106 mg/dL Lactic Acid Level 1.1 0.4-2.0 mmol/L Calcium Level 6.8 L 8.7-10.4 mg/dL Total Bilirubin 0.5 0.2-1.0 mg/dL Aspartate Amino Transferase (AST) 20 13-40 U/L Alanine Aminotransferase (ALT) < 9 7-40 U/L Alkaline Phosphatase 77 46-116 U/L Troponin I High Sensitivity 96 *H </=54 ng/L B-Type Natriuretic Peptide 2979.32 0-100 pg/mL Total Protein 7.5 5.7-8.2 g/dL Albumin 4.5 3.2-4.8 g/dL Current Medications Medications (Trade) Dose Ordered Sig/Miguel Route Start Time Stop Time Status Last Admin Furosemide (Lasix Injection) 80 mg ONCE ONCE IV 05/02/25 01:00 05/02/25 01:01 DC 05/02/25 01:43 Albuterol (Ventolin Medneb) 2.5 mg ONCE ONCE NEB 05/02/25 01:00 05/02/25 01:01 DC 05/02/25 01:11 Ipratropium [place] (Atrovent Medneb) 0.5 mg ONCE ONCE NEB 05/02/25 01:00 05/02/25 01:01 DC 05/02/25 01:11 Morphine Sulfate 1 mg ONCE ONCE IV 05/02/25 01:45 05/02/25 01:46 DC 05/02/25 01:47 CHEST RADIOGRAPH Indication: Shortness of breath Technique: Single frontal view of the chest was obtained COMPARISON: XY CHEST PORTABLE on DOS: 04/30/25 FINDINGS: Lines and Tubes: None Lungs / Pleura: Mild pulmonary edema and small bilateral pleural effusions with associated bibasilar atelectasis/consolidation greater on the right side, progressed compared to the prior chest x-ray from 04/30/25. Cardiomediastinal contours: [id number] cardiomegaly. IMPRESSION: Mild pulmonary edema and small bilateral pleural effusions with bibasilar atelectasis/consolidation greater on the right side, progressed compared to the prior chest x-ray from 04/30/25. Time of 1ST Reevaluation: 00:57 Reevaluation 1ST: Unchanged Patient Education/Counseling: Need For Follow Up Family Education/Counseling: Need For Follow Up SEPSIS Sepsis Screen Physician Orders Abg W/ Co-Ox (05/02/25 00:50) Chest Xray 1 View (05/02/25 00:50) Electrocardigram (05/02/25 00:50) Electrocardigram (05/02/25 01:50) Electrocardigram (05/02/25 03:50) BIPAP (05/02/25 02:47) Vital Signs Date Time Temp Pulse Resp B/P (MAP) Pulse Ox O2 Delivery O2 Flow Rate FiO2 05/02/25 04:00 80 05/02/25 03:00 88 21 157/61 (93) 05/02/25 02:42 88 18 171/57 05/02/25 01:47 87 18 206/82 05/02/25 01:43 206/82 05/02/25 01:30 87 206/82 Facial BiPAP Mask 40 05/02/25 01:22 87 18 91 Nasal Cannula* 4 36 05/02/25 01:20 98.5 87 18 206/82 (123) 91 98.5 05/02/25 01:05 28 97 Nasal Cannula* 4 36 05/02/25 01:00 89 05/02/25 00:56 98.2 66 26 213/84 (127) 84 98.2 05/02/25 00:56 66 05/02/25 00:46 89 Laboratory Tests Test 05/02/25 01:05 Lactic Acid Level 1.1 mmol/L (0.4-2.0) White Blood Count 10.1 10^3/uL (4.4-10.8) Departure 1 Departure Time of Disposition: 03:14 Impression: Primary Impression: ESRD (end stage renal disease) on dialysis Additional Impressions: Pulmonary edema Hypoxia Disposition: ADMITTED INPATIENT Condition: Stable Comments Treatment initiated in the ED Patient is started on BiPAP for work of breathing Patient is stabilized Patient admitted to hospitalist service for further treatment, evaluation and monitoring. Extensive evaluation was performed in attempt to identify or rule out: (See differential diagnosis section) The following tests were ordered, and results were reviewed by me and discussed with patient: (See diagnostic results section) The following test were independently interpreted by me: EKG I reviewed and agreed with the following test results read by other providers: Chest x-ray I reviewed the following notes from the pt's past medical encounters: N/A Additional information was gathered from interviewing the following independent historians: Patient's at bedside Discussion of management or test interpretation with external physician/other qualified health home care coordinator: N/A Addressed one or more chronic illnesses with severe exacerbation, progression, or side effects of treatment: End-stage renal disease on dialysis, an acute or chronic illness that poses a threat to life or bodily function: Acute pulmonary edema Decision regarding hospitalization or escalation of hospital level of care: Risk and benefits of admission for further treatment of patient's condition was considered. Due to patient's current clinical condition, high risk of decline and poor outcome if discharged and need for further inpatient management and monitoring, patient will be admitted to the hospital. Discussed with patient. Drug therapy requiring intensive monitoring for toxicity: IV furosemide Parenteral controlled substances: N/A Decision regarding elective major surgery with identified patient or procedure risk factors: N/A Decision regarding emergency major surgery: N/A Decision not to resuscitate or to de-escalate care because of poor prognosis: N/A Diagnosis or treatment significantly limited by social determinants of health: N/A Critical Care Note Critical Care Time?: Yes (35 min-critical care time only) Critical care comment: Due to a high probability of clinically significant, life threatening deterioration, the patient required my highest level of preparedness to intervene emergently and I personally spent this critical care time directly and personally managing the patient. This critical care time included obtaining a history; examining the patient; pulse oximetry; ordering and review of studies; arranging urgent treatment with development of a management plan; evaluation of patient's response to treatment; frequent reassessment; and, discussions with other providers. This critical care time was performed to assess and manage the high probability of imminent, life-threatening deterioration that could result in multi-organ failure. It was exclusive of separately billable procedures and treating other patients and teaching time. Please see my other sections and the rest of the note for further information on patient assessment and treatment. Stability Stability form required: No Heart Score Heart Score: Heart Score Response (Comments) Value History Slightly Suspicious 0 EKG Repolarization Disturb 1 Age >65 2 Risk Factors >3 or Hx ASHD 2 Troponin Normal limit 0 Total 5 I personally scribed for BONG WILLIS MD ([email or web address]) on 05/02/25 at 01:00. Electronically submitted by Maicol Haley ([facility]). I personally scribed for BONG WILLIS MD ([email or web address]) on 05/02/25 at 03:16. Electronically submitted by Maicol Haley ([email or web address]). BONG WILLIS MD May 02, 2025 01:00
[2025-05-02] MEDS: ALBUTEROL SULF 2.5 MG/0.5ML(0.5%) NEB SOLN NEB ONE (01:11)
[2025-05-02] MEDS: IPRATROPIUM BROM 0.5 MG/2.5ML INH SOL NEB ONE (01:11)
[2025-05-02 01:20] LABS: Hematocrit 30.8 % (41.0-53.0); Hemoglobin 9.8 g/dL (13.5-17.5); Mean Corpuscular Hemoglobin 27.3 pg (28.0-32.0); Mean Corpuscular Volume 86.1 fL (80.0-100.0); Nucleated Red Blood Cells % 0.0 %
[2025-05-02 01:36] LABS: Albumin 4.5 g/dL (3.2-4.8); Alkaline Phosphatase 77 U/L (46-116); Anion Gap 19 (5-15); BUN/Creatinine Ratio 5.4 (10.0-20.0); Bilirubin, Total 0.5 mg/dL (0.2-1.0); Chloride 106 mmol/L (98-107); Glucose 97 mg/dL (74-106); Potassium 4.5 mmol/L (3.5-5.1); Sodium 142 mmol/L (136-145); Total Protein 7.5 g/dL (5.7-8.2)
[2025-05-02 01:38] LABS: Alanine Aminotransferase < 9 U/L (7-40); Blood Urea Nitrogen 56 mg/dL (9-23); Calcium 6.8 mg/dL (8.7-10.4); Carbon Dioxide 17 mmol/L (20-31)
--- NOTE | 2025-05-02 01:39 | DVH ---
CHEST RADIOGRAPH Indication: Shortness of breath Technique: Single frontal view of the chest was obtained COMPARISON: XY CHEST PORTABLE on DOS: 04/30/25 FINDINGS: Lines and Tubes: None Lungs / Pleura: Mild pulmonary edema and small bilateral pleural effusions with associated bibasilar atelectasis/consolidation greater on the right side, progressed compared to the prior chest x-ray fro m 04/30/25. Cardiomediastinal contours: [id number] cardiomegaly. IMPRESSION: Mild pulmonary edema and small bilateral pleural effusions with bibasilar atelectasis/consolidation greater on the right side, progressed compared to the prior chest x-ray from 04/30/25.
[2025-05-02 01:40] LABS: Base Excess -8.8 mmol/L (-2.0-3.0)
[2025-05-02] MEDS: FUROSEMIDE 40 MG/4 ML VIAL IV ONE (01:43)
[2025-05-02] MEDS: MORPHINE SULFATE INJ 2 MG/ml SYRG IV ONE (01:47)
[2025-05-02 02:06] LABS: COVID19 ANTIGEN SOFIA FIA NEGATIVE (NEGATIVE)
[2025-05-02] MEDS ORDERED: ALBUTEROL SULF 2.5 MG/0.5ML(0.5%) NEB SOLN NEB PRN (05:00)
[2025-05-02] MEDS ORDERED: ACETAMINOPHEN 325 MG TAB PO PRN (05:00)
[2025-05-02] MEDS ORDERED: NITROGLYCERIN 0.4 MG SL TAB SL PRN (05:00)
[2025-05-02] MEDS ORDERED: IPRATROPIUM BROM 0.5 MG/2.5ML INH SOL NEB PRN (05:00)
[2025-05-02] MEDS ORDERED: DOCUSATE SOD 100 MG CAP PO PRN (05:00)
[2025-05-02] MEDS ORDERED: ONDANSETRON HCL 4 MG/2 ML VIAL IV PRN (05:00)
--- NOTE | 2025-05-02 05:07 | DVHHP2 ---
History of Present Illness Reason for Visit: End-stage renal disease on hemodialysis History of Present Illness The patient is a 70-year-old male with past medical history of CVA, CHF, end- stage renal disease on hemodialysis , hypertension, and MT who presented to [facility] ED with complaint of shortness of breaths. As reported, patient has been missing, skipping, and leaving early on his dialysis session days for the past few weeks. Patient was admitted here 2 days ago for CHF exacerbation but signed AMA for the same day. Patient's symptoms progressively get worse with increased shortness of breaths, chest pain, desaturating on room air at 84% with elevated blood blood pressure 213/84 mm Hg, heart rate 88, temperature 98.5 F. laboratory data shows WBC 10.1, hemoglobin 9.8, hematocrit 30.8, platelets 250, sodium 142, potassium 4.5, BUN 56, creatinine 10.33, glucose 97, calcium 6.8, troponin 98. Chest x-ray revealing mild pulmonary edema and small bilateral pleural effusion with bibasilar atelectasis/consolidation greater on the right side. Patient was given breathing treatment, placed on BiPAP, replacement of electrolyte, please see medication orders section in the computer. On my assessment, patient denied chest pain, no headache, no dizziness, no diaphoresis, currently on oxygen, no nausea, no vomi ting, no fever, no chills. Patient was admitted for further evaluation and medical management. Past Medical History CHF, CVA, ESRD, HTN, MT Hepatitis-C, HLD, Depression Past Surgical History Hernia Repair, Right 2nd finger partial amputation Family History Reviewed, noncontributory to the management of this case. Past Social History Patient lives at home, smokes tobacco, denies alcohol use, uses marijuana. Review of Systems Constitutional: Yes: Weakness; No: Fever, Chills, Sweats, Malaise, Other Eyes: No: Pain, Vision change, Conjunctivae inflammation, Eyelid inflammation, Other, Redness ENT: No: Ear pain, Ear discharge, Nose pain, Nose discharge, Nose congestion, Mouth pain, Mouth swelling, Throat pain, Throat swelling, Other Respiratory: Shortness of breath, Other (SOB at rest); No: Cough, Dry, SOB with excertion, Wheezing, Hemoptysis, Pleuritic Pain, Sputum, Wheezing Cardiovascular: No: Chest Pain, Palpitations, Orthopnea, Paroxysmal Noc. Dyspnea, Edema, Lt Headedness, Other Gastrointestinal: No: Nausea, Vomiting, Abdominal Pain, Diarrhea, Constipation, Melena, Hematochezia, Other Genitourinary: No Dysuria, No Frequency, No Incontinence, No Hematuria, No Retention; Other (On hemodialysis) Musculoskeletal: other (Right 2nd finger partial amputation); No: neck pain, shoulder pain, arm pain, back pain, hand pain, leg pain, foot pain Skin: No: Rash, Lesions, Jaundice, Bruising, Other Neurological: No: Weakness, Numbness, Incoordination, Change in speech, Confusion, Seizures, Other Allergies: Coded Allergies: NO KNOWN ALLERGIES (Unverified , 10/17/22) Medications Current Medications Medications Dose Ordered Sig/Miguel Route Start Time Stop Time Status Last Admin Dose Admin Aspirin 81 mg DAILY PO 05/02/25 10:00 Atorvastatin Calcium 20 mg HS PO 05/02/25 22:00 Albuterol 2.5 mg Q4HPRN PRN NEB 05/02/25 05:00 Ipratropium Buna 0.5 mg Q4HPRN PRN NEB 05/02/25 05:00 UNV Multivit/Ca Carb/ B Cmplx/FA/Prenat 1 tab DAILY PO 05/02/25 10:00 UNV Sevelamer HCl 800 mg TIDWM PO 05/02/25 08:00 UNV Metoprolol Tartrate 25 mg BID PO 05/02/25 10:00 UNV Hydralazine HCl 10 mg Q6HP PRN IV 05/02/25 05:00 UNV Amlodipine Besylate 5 mg DAILY PO 05/02/25 10:00 Albuterol 2.5 mg Q4HPRN PRN NEB 05/02/25 05:00 UNV Ipratropium Buna 0.5 mg Q4HPRN PRN NEB 05/02/25 05:00 Sodium Chloride 10 ml Q8HR IV 05/02/25 06:00 UNV Acetaminophen/ Hydrocodone Bitart 1 tab Q4HP PRN PO 05/02/25 05:00 UNV Ondansetron HCl 4 mg Q4HP PRN IV 05/02/25 05:00 UNV Docusate Sodium 100 mg BIDPRN PRN PO 05/02/25 05:00 UNV Acetaminophen 650 mg Q6HP PRN PO 05/02/25 05:00 UNV Nitroglycerin 0.4 mg Q5MINP PRN SL 05/02/25 05:00 UNV Morphine Sulfate 2 mg Q30M PRN IV 05/02/25 05:00 UNV Exam Vital Signs Vital Signs Date Time Temp Pulse Resp B/P (MAP) Pulse Ox O2 Delivery O2 Flow Rate FiO2 05/02/25 03:00 88 21 157/61 (93) 05/02/25 01:30 Facial BiPAP Mask 40 05/02/25 01:22 91 4 05/02/25 01:20 98.5 98.5 General Appearance: Alert, Oriented X3, Cooperative, No acute distress HEENT: Atraumatic, PERRLA, EOMI, Mucous membr. moist/pink Respiratory: Normal air movement Cardiovascular: Regular rate, Normal S1, Normal S2, No murmurs Abdominal: Normal bowel sounds, Soft, No tenderness, No hepatospenomegaly, No masses Extremities: No clubbing, No cyanosis, No edema, Normal pulses, No tenderness/swelling Skin: No rashes, No significant lesion Neuro: Normal speech, Normal tone, Sensation intact, Cranial nerves 3-12 NL, Reflexes 2+, Other (Generalized weakness) Psych/Mental Status: Mental status NL, Mood NL Labs/Xrays Labs Test 05/02/25 04:26 05/02/25 01:30 05/02/25 01:28 05/02/25 01:05 Range/Units Troponin I High Sensitivity 87 *H </=54 ng/L Blood Gas Specimen Type Arterial Blood Gas Sample Site Right brachial Blood Gas Patient Temperature 37.0 Arterial Blood Date Drawn [id number] Arterial Blood pH 7.365 7.350-7.450 Arterial Blood Partial Pressure CO2 27.3 L 35.0-48.0 mmHg Arterial Blood Partial Pressure O2 84.1 83.0-108.0 mmHg Arterial Blood HCO3 15.3 L 21.0-28.0 mmol/L Arterial Blood Oxygen Saturation 94.8 94.0-98.0 % Arterial Blood Base Excess -8.8 L -2.0-3.0 mmol/L Arterial Blood Oxyhemoglobin 93.4 L 94.0-98.0 % Arterial Blood Carboxyhemoglobin 1.4 0.5-1.5 % Arterial Blood Methemoglobin 0.1 0.0-1.5 % Daniel Test N/a Blood Gas Total Hemoglobin 10.50 L 13.5-17.5 g/dL Blood Gas Liter Flow 4.00 Blood Gas Modality Nasal cannula FiO2 % 36.0 Influenza Type A Antigen Negative Negative Influenza Type B Antigen Negative Negative SARS-CoV-2 Antigen (Rapid) Negative NEGATIVE White Blood Count 10.1 4.4-10.8 10^3/uL Red Blood Count 3.57 L 4.5-5.90 10^6/uL Hemoglobin 9.8 L 13.5-17.5 g/dL Hematocrit 30.8 L 41.0-53.0 % Mean Corpuscular Volume 86.1 80.0-100.0 fL Mean Corpuscular Hemoglobin 27.3 L 28.0-32.0 pg Mean Corpuscular Hemoglobin Concent 31.7 L 32.0-36.0 g/dL Red Cell Distribution Width 20.9 H 11.8-14.3 % Platelet Count 250 140-450 10^3/uL Mean Platelet Volume 8.0 6.9-10.8 fL Neutrophils (%) (Auto) 86.2 H 37.0-80.0 % Lymphocytes (%) (Auto) 3.9 L 10.0-50.0 % Monocytes (%) (Auto) 7.8 0.0-12.0 % Eosinophils (%) (Auto) 1.4 0.0-7.0 % Basophils (%) (Auto) 0.7 0.0-2.0 % Neutrophils # (Auto) 8.7 H 1.6-8.6 10 ^3/uL Lymphocytes # (Auto) 0.4 0.4-5.4 10 ^3/uL Monocytes # (Auto) 0.8 0-1.3 10 ^3/uL Eosinophils # (Auto) 0.1 0-0.8 10 ^3/uL Basophils # (Auto) 0.1 0-0.2 10 ^3/uL Nucleated Red Blood Cells 0.0 % Sodium Level 142 136-145 mmol/L Potassium Level 4.5 3.5-5.1 mmol/L Chloride Level 106 98-107 mmol/L Carbon Dioxide Level 17 L 20-31 mmol/L Anion Gap 19 H 5-15 Blood Urea Nitrogen 56 #H 9-23 mg/dL Creatinine 10.33 *H 0.700-1.30 mg/dL Glomerular Filtration Rate Calc 5 >90 mL/min BUN/Creatinine Ratio 5.4 L 10.0-20.0 Serum Glucose 97 74-106 mg/dL Lactic Acid Level 1.1 0.4-2.0 mmol/L Calcium Level 6.8 L 8.7-10.4 mg/dL Total Bilirubin 0.5 0.2-1.0 mg/dL Aspartate Amino Transferase (AST) 20 13-40 U/L Alanine Aminotransferase (ALT) < 9 7-40 U/L Alkaline Phosphatase 77 46-116 U/L B-Type Natriuretic Peptide 2979.32 0-100 pg/mL Total Protein 7.5 5.7-8.2 g/dL Albumin 4.5 3.2-4.8 g/dL PATIENT: MELISSA MATHEWSACCT: [id number] UNIT: [id number] : 1955 LOC: ER ROOM / BED: / AGE / SEX: 70 / M ADM STATUS: REG ER SERVICE 0050 ORDERING PHYSICIAN: BONG WILLIS MD PROCEDURE(s): CXR1 - CHEST XRAY 1 VIEW REASON: Shortness of breath ORDER NUMBER(s): [id number], ACCESSION NUMBER(s): [id number] CHEST RADIOGRAPH Indication: Shortness of breath Technique: Single frontal view of the chest was obtained COMPARISON: XY CHEST PORTABLE on DOS: 04/30/25 FINDINGS: Lines and Tubes: None Lungs/Pleura: Mild pulmonary edema and small bilateral pleural effusions with associated bibasilar atelectasis/consolidation greater on the right side, progressed compared to the prior chest x-ray from 04/30/25. Cardiomediastinal contours: [id number] cardiomegaly. IMPRESSION: Mild pulmonary edema and small bilateral pleural effusions with bibasilar atelectasis/consolidation greater on the right side, progressed compared to the prior chest x-ray from 04/30/25. SEPSIS Sepsis Screen Date sepsis recognized/suspect: May 02, 2025 Time Sepsis recognized/suspect: 0126 Recent Procedure: No On Antibiotic Therapy: No Respiratory Rate >20: No Heart Rate >90: No Temp<36 C (96.8 F) or >38.3 C: No SBP <90 or MAP <65 mmHG: No New Acute Mental Status Change: No Is the patient on CPAP, BIPAP,: No Physician Orders Abg W/ Co-Ox (05/02/25 00:50) Chest Xray 1 View (05/02/25 00:50) Electrocardigram (05/02/25 00:50) Electrocardigram (05/02/25 01:50) Electrocardigram (05/02/25 03:50) BIPAP (05/02/25 02:47) Complete Blood Count (05/02/25 04:51) Comprehensive Metabolic Panel (05/02/25 04:51) B-Type Natriuretic Peptide (05/02/25 04:51) Aspirin Tablet (05/02/25 10:00) Atorvastatin (Lipitor) (05/02/25 22:00) Albuterol Medneb (Ventolin Medneb) (05/02/25 05:00) Ipratropium Medneb (Atrovent Medneb) (05/02/25 05:00) B-Complex W/ C & Folic Tablet (Nephro-Vi (05/02/25 10:00) Calcium Gluc 1,000mg/50ml-Ns (05/02/25 05:00) Sevelamer (Renagel) (05/02/25 08:00) Metoprolol Tartrate Tablet (Lopressor Ta (05/02/25 10:00) Hydralazine Injection (Apresoline Inject (05/02/25 05:00) Amlodipine Tablet (Norvasc Tablet) (05/02/25 10:00) *[facility] (05/02/25 04:51) Albuterol Medneb (Ventolin Medneb) (05/02/25 05:00) Ipratropium Medneb (Atrovent Medneb) (05/02/25 05:00) Admit (05/02/25 04:51) Allergies (05/02/25 04:51) Code Status (05/02/25 04:51) Renal Standard(2gna,3gk,Lopho) (05/02/25 Breakfast) Sodium Chloride Lock (Saline Lock Ns) (05/02/25 06:00) Oxygen Per Hour (05/02/25 04:51) Hydrocodone-Acet 5/325mg Tab ([place] 5/32 (05/02/25 05:00) Ondansetron Hcl (Zofran) (05/02/25 05:00) Docusate Sodium Capsule (Colace Capsule) (05/02/25 05:00) Complete Blood Count (05/03/25 04:00) Comprehensive Metabolic Panel (05/03/25 04:00) Condition: Serious (05/02/25 04:51) Acetaminophen Tablet (Tylenol Tablet) (05/02/25 05:00) Bedrest With Bathroom Privileg (05/02/25 04:51) Sequential Compression Device (05/02/25 ) Nitroglycerin Sublingual (Ntrostat Subli (05/02/25 05:00) Morphine Sulfate Injection (05/02/25 05:00) Stat Ekg For Chest Pain (05/02/25 04:51) Notify Md Of Changes From Base (05/02/25 04:51) Ultrasound Coordinator For 24 Hours (05/02/25 04:51) Emergency Dysrhythmia Protocol (05/02/25 04:51) Rhythm Strips Once Every Shift (05/02/25 04:51) Oxygen By Nasal Cannula (05/02/25 04:51) Vital Signs Date Time Temp Pulse Resp B/P (MAP) Pulse Ox O2 Delivery O2 Flow Rate FiO2 05/02/25 03:00 88 21 157/61 (93) 05/02/25 02:42 88 18 171/57 05/02/25 01:47 87 18 206/82 05/02/25 01:43 206/82 05/02/25 01:30 87 206/82 Facial BiPAP Mask 40 05/02/25 01:22 87 18 91 Nasal Cannula* 4 36 05/02/25 01:20 98.5 87 18 206/82 (123) 91 98.5 05/02/25 01:05 28 97 Nasal Cannula* 4 36 05/02/25 01:00 89 05/02/25 00:56 98.2 66 26 213/84 (127) 84 98.2 05/02/25 00:56 66 Laboratory Tests Test 05/02/25 01:05 Lactic Acid Level 1.1 mmol/L (0.4-2.0) White Blood Count 10.1 10^3/uL (4.4-10.8) Medications Medications Dose Ordered Sig/Miguel Route Start Time Stop Time Status Last Admin Dose Admin Albuterol 2.5 mg ONCE ONCE [facility] 05/02/25 01:00 05/02/25 01:01 CA 05/02/25 01:11 2.5 MG Furosemide 80 mg ONCE ONCE IV 05/02/25 01:00 05/02/25 01:01 DC 05/02/25 01:43 80 MG Ipratropium Buna 0.5 mg ONCE ONCE [facility] 05/02/25 01:00 05/02/25 01:01 DC 05/02/25 01:11 0.5 MG Morphine Sulfate 1 mg ONCE ONCE IV 05/02/25 01:45 05/02/25 01:46 CA 05/02/25 01:47 1 MG Assessment/Plan Assessment/Plan ESRD (end stage renal disease) on dialysis Electrolyte imbalance Hypertensive urgency Pulmonary edema Elevated troponin Generalized weakness Anemia of chronic disease Acute respiratory failure with hypoxia Plan 1. Admit to telemetry unit 2. Breathing treatment 3. Pain control management 4. Management of fluids and electrolytes 5. Consultation for Nephrology 6. Diagnostic tests chest x-ray 7. DVT prophylaxis-on aspirin 8. Repeat labs CBC, CMP in a.m. 9. Continue with current medical management 10. Treatment plan discussed with patient and RN. Patient verbalized understanding. Plan discussed with: Patient, Other (RN) My Orders Orders - NOREEN BHATT DNP Procedure Category Date Status Time Complete Blood Count LAB 05/02/25 Logged 04:51 Comprehensive LAB 05/02/25 Logged Metabolic Panel 04:51 B-Type Natriuretic LAB 05/02/25 Logged Peptide 04:51 Aspirin Tablet [facility] 05/02/25 In Process 10:00 Atorvastatin (Lipitor) PHA 05/02/25 Logged 22:00 Albuterol Medneb PHA 05/02/25 Logged (Ventolin Medneb) 05:00 Ipratropium Medneb PHA 05/02/25 Logged (Atrovent Medneb) 05:00 B-Complex W/ C & PHA 05/02/25 Logged Folic Tablet 10:00 Calcium Gluc PHA 05/02/25 Logged 1,000mg/50ml-Ns 05:00 Sevelamer (Renagel) PHA 05/02/25 Logged 08:00 Metoprolol Tartrate PHA 05/02/25 Logged Tablet (Lopressor Ta 10:00 Hydralazine Injection PHA 05/02/25 Logged (Apresoline Inject 05:00 Amlodipine Tablet PHA 05/02/25 Logged (Norvasc Tablet) 10:00 *[facility] CONS 05/02/25 Transmitted -[place] 04:51 Albuterol Medneb PHA 05/02/25 Logged (Ventolin Medneb) 05:00 Ipratropium Medneb PHA 05/02/25 Logged (Atrovent Medneb) 05:00 Admit ADMIT 05/02/25 Transmitted 04:51 Allergies RAÚL 05/02/25 In Process 04:51 Code Status CODE 05/02/25 Transmitted 04:51 Renal DIET 05/02/25 Transmitted Standard(2gna,3gk,Lopho) Breakfast Sodium Chloride Lock PHA 05/02/25 Logged (Saline Lock Ns) 06:00 Oxygen Per Hour RT 05/02/25 Transmitted 04:51 Hydrocodone-Acet PHA 05/02/25 Logged 5/325mg Tab ([place] 05:00 Ondansetron Hcl PHA 05/02/25 Logged (Zofran) 05:00 Docusate Sodium PHA 05/02/25 Logged Capsule (Colace 05:00 Complete Blood Count LAB 05/03/25 Verified 04:00 Comprehensive LAB 05/03/25 Verified Metabolic Panel 04:00 Condition: Serious RAÚL 05/02/25 In Process 04:51 Acetaminophen Tablet [facility] 05/02/25 Logged (Tylenol Tablet) 05:00 Bedrest With Bathroom RAÚL 05/02/25 In Process Privileg 04:51 Sequential RAÚL 05/02/25 In Process Compression Device Nitroglycerin [facility] 05/02/25 Logged Sublingual (Ntrostat 05:00 Morphine Sulfate PHA 05/02/25 Logged Injection 05:00 Stat Ekg For Chest RAÚL 05/02/25 In Process Pain 04:51 Notify Of Changes [facility] 05/02/25 In Process From Base 04:51 Ultrasound Coordinator For [facility] 05/02/25 In Process 24 Hours 04:51 Emergency Dysrhythmia [facility] 05/02/25 In Process Protocol 04:51 Rhythm Strips Once [facility] 05/02/25 In Process Every Shift 04:51 Oxygen By Nasal RT 05/02/25 Transmitted Cannula 04:51 Problem List: (1) End-stage renal disease on hemodialysis (2) Electrolyte imbalance (3) Pulmonary edema (4) Hypertensive urgency (5) Elevated troponin (6) Anemia of chronic disease (7) Generalized weakness (8) Acute respiratory failure with hypoxia Date of Service: May 02, 2025 Billing Provider: NOREEN BHATT DNP Common Visit Codes: [id number] INP/OBS CARE (HIGH) NOREEN BHATT DNP May 02, 2025 05:07
[2025-05-02] MEDS: CALCIUM GLUC 1,000mg/50ml-NS 50 ML IV ONE (05:15)
[2025-05-02] MEDS: SODIUM CHLOR 0.9% PF (SALINE LOCK) 10ML VIAL/SYR IV SCH (05:26)
[2025-05-02] MEDS: MORPHINE SULFATE INJ 2 MG/ml SYRG IV PRN (05:29)
[2025-05-02 05:44] LABS: Hematocrit 29.6 % (41.0-53.0); Hemoglobin 9.6 g/dL (13.5-17.5); Mean Corpuscular Hemoglobin 27.2 pg (28.0-32.0); Mean Corpuscular Volume 84.3 fL (80.0-100.0); Nucleated Red Blood Cells % 0.1 %
[2025-05-02 06:05] LABS: Albumin 4.2 g/dL (3.2-4.8); Alkaline Phosphatase 68 U/L (46-116); Anion Gap 19 (5-15); BUN/Creatinine Ratio 5.7 (10.0-20.0); Bilirubin, Total 0.4 mg/dL (0.2-1.0); Chloride 106 mmol/L (98-107); Glucose 101 mg/dL (74-106); Potassium 4.6 mmol/L (3.5-5.1); Sodium 142 mmol/L (136-145); Total Protein 7.0 g/dL (5.7-8.2)
[2025-05-02 06:13] LABS: Alanine Aminotransferase < 9 U/L (7-40); Blood Urea Nitrogen 60 mg/dL (9-23); Calcium 7.3 mg/dL (8.7-10.4); Carbon Dioxide 17 mmol/L (20-31)
[2025-05-02] MEDS: SEVELAMER 800 MG TAB PO SCH (08:50)
[2025-05-02] MEDS: B-COMPLEX W/ C & FOLIC ACID(NEPHROVITE TAB) PO SCH (09:58)
[2025-05-02] MEDS: METOPROLOL TARTRATE 25 MG TAB PO SCH (09:59)
[2025-05-02] MEDS: SERTRALINE HCL 50 MG TAB PO SCH (09:59)
--- NOTE | 2025-05-02 13:23 | DVHPN2 ---
Reviewed: Care Plan, H&P, Labs, Medications, Previous Orders, Radiology Changes from previous H/P or p: No Changes Eyes: No Pain, No Vision change, No Conjunctivae inflammation, No Eyelid inflammation, No Other, No Redness ENT: No Ear pain, No Ear discharge, No Nose pain, No Nose discharge, No Nose congestion, No Mouth pain, No Mouth swelling, No Throat pain, No Throat swelling, No Other Cardiovascular: No Chest Pain, No Palpitations, No Orthopnea, No Paroxysmal Noc. 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); No neck pain, No shoulder pain, No arm pain, No back pain, No hand pain, No leg pain, No foot pain Skin: No Rash, No Lesions, No Jaundice, No Bruising, No Other Objective Vitals Vital Signs Date Time Temp Pulse Resp B/P (MAP) Pulse Ox O2 Delivery O2 Flow Rate FiO2 05/02/25 12:00 98.6 58 14 152/74 (100) 96 98.6 05/02/25 08:00 Nasal Cannula* 4 36 Medications Current Medications Medications Dose Ordered Sig/Miguel Route Start Time Stop Time Status Last Admin Dose Admin Aspirin 81 mg DAILY PO 05/02/25 10:00 05/02/25 09:59 81 MG Atorvastatin Calcium 20 mg HS PO 05/02/25 22:00 Albuterol 2.5 mg Q4HPRN PRN NEB 05/02/25 05:00 Multivit/Ca Carb/ B Cmplx/FA/Prenat 1 tab DAILY PO 05/02/25 10:00 05/02/25 09:58 1 TAB Sevelamer HCl 800 mg TIDWM PO 05/02/25 08:00 05/02/25 11:53 800 MG Metoprolol Tartrate 25 mg BID PO 05/02/25 10:00 05/02/25 09:59 25 MG Hydralazine HCl 10 mg Q6HP PRN IV 05/02/25 05:00 Amlodipine Besylate 5 mg DAILY PO 05/02/25 10:00 05/02/25 09:58 5 MG Ipratropium [place] 0.5 mg Q4HPRN PRN NEB 05/02/25 05:00 Sodium Chloride 10 ml Q8HR IV 05/02/25 06:00 05/02/25 05:26 10 ML Acetaminophen/ Hydrocodone Bitart 1 tab Q4HP PRN PO 05/02/25 05:00 Ondansetron HCl 4 mg Q4HP PRN IV 05/02/25 05:00 Docusate Sodium 100 mg BIDPRN PRN PO 05/02/25 05:00 Acetaminophen 650 mg Q6HP PRN PO 05/02/25 05:00 Nitroglycerin 0.4 mg Q5MINP PRN SL 05/02/25 05:00 Morphine Sulfate 2 mg Q30M PRN IV 05/02/25 05:00 05/02/25 05:29 2 MG Sertraline HCl 50 mg DAILY PO 05/02/25 10:00 05/02/25 09:59 50 MG Laboratory Results Laboratory Tests 05/02/25 05:22 Chemistry Test 05/02/25 01:05 05/02/25 05:22 Albumin 4.5 g/dL (3.2-4.8) 4.2 g/dL (3.2-4.8) Calcium Level 6.8 mg/dL (8.7-10.4) L 7.3 mg/dL (8.7-10.4) L Total Protein 7.5 g/dL (5.7-8.2) 7.0 g/dL (5.7-8.2) Cardiac Markers Test 05/02/25 01:05 05/02/25 05:22 B-Type Natriuretic Peptide 2979.32 pg/mL (0-100) 3246.98 pg/mL (0-100) LFT Test 05/02/25 01:05 05/02/25 05:22 Alanine Aminotransferase (ALT) < 9 U/L (7-40) < 9 U/L (7-40) Alkaline Phosphatase 77 U/L (46-116) 68 U/L (46-116) Aspartate Amino Transferase (AST) 20 U/L (13-40) 18 U/L (13-40) Total Bilirubin 0.5 mg/dL (0.2-1.0) 0.4 mg/dL (0.2-1.0) Blood Gas Results Test 05/02/25 01:30 Arterial Blood pH 7.365 (7.350-7.450) FiO2 % 36.0 Labs and/or images reviewed: Labs reviewed by me, Image(s) reviewed by me Assessment/Plan Assessment/Plan Acute hypoxic respiratory failure: Oxygen by nasal cannula Acute community-acquired bilateral pneumonia Gram-positive versus Gram-negative: Rocephin azithromycin, albuterol Atrovent Solu-Medrol ESRD on hemodialysis consult for Dr. Farley Hypertensive urgency Pulmonary edema Non ST-elevation OK consult for Dr. Milian Acute CHF exacerbation: Lasix consult for Dr. Milian Anemia of chronic disease Generalized weakness Patient is hospice revoked Time Spent 70 minute Advanced care planning time 20 minutes Patient is full code Plan discussed with: Patient Date of Service: May 02, 2025 Billing Provider: CHUNG GOODWIN MD Common Visit Codes: [id number] CARE 30-74 MIN CHUNG GOODWIN MD May 02, 2025 13:23
--- NOTE | 2025-05-02 14:50 | DVHINCON2 ---
Date Seen: May 02, 2025 Referring Physician Ilya Reason for Consultation CHF, Positive Troponins History of Present Illness 70-year-old male with PMH for HFrEF, NM, coronary angiogram negative for CAD, HTN, ESRD on HD, chronic hypoxic respiratory failure on home O2, noncompliance, tobacco use, methamphetamine abuse, presents to the hospital with shortness of breath, chest pain. Patient was recently admitted to the hospital though left AMA on the April 30. Upon presentation patient has some chest pain noted to be retrosternal on left-sided sharp in nature radiating to the back worsens with deep inhalation pleuritic in nature. Troponins mildly elevated trending 96, 98, 87. Patient with known coronary angiogram 07/27/2021 at [facility] negative for CAD. CXR showing mild pulmonary edema with small bilateral pleural effusions. Of note patient with a recent echo 04/30/2025 showing EF 55-60% moderate to severe aortic stenosis. Past Medical History As stated above Past Surgical History Negative coronary angiogram 07/27/2021 Family History: Arthritis G8 MOTHER Cardiovascular disease G8 FATHER Diabetes mellitus G8 MOTHER G8 FATHER Social History History of amphetamine abuse, tobacco abuse. Allergies: Coded Allergies: NO KNOWN ALLERGIES (Unverified , 10/17/22) Home Meds Active Scripts Atorvastatin Calcium (ATORVASTATIN CALCIUM) 40 Mg Tab, 40 MG PO DAILY for 30 Days, #30 TAB 0 Refills Prov:RANJAN SZYMANSKI RESIDENT 11/10/24 Reported Medications Sertraline HCl (Sertraline HCl) 50 Mg Tab, 50 MG PO DAILY, TAB 11/06/24 Clonidine Hydrochloride (Clonidine Hydrochloride) 0.3 Mg Tab, 0.3 MG PO TID, TAB 11/06/24 Sevelamer Carbonate (Renvela) 800 Mg Tab, 2 TAB PO TIDWM for 90 Days, #540 10/27/24 Alprazolam (Alprazolam) 1 Mg Tab, 1 TAB PO DAILYPRN PRN for ANXIETY for 30 Days, #30 10/27/24 Nifedipine (Nifedipine Er) 60 Mg Tab, 1 TAB PO DAILY 01/14/24 Tamsulosin Hcl (Tamsulosin Hcl) 0.4 Mg Cap, 1 CAP PO DAILY 01/14/24 Hydralazine Hcl (Hydralazine Hcl) 100 Mg Tab, 1 TAB PO DAILY for 30 Days, #30 01/14/24 Current Medications Current Medications Medications (Trade) Dose Ordered Sig/Miguel Route PRN Reason Start Time Stop Time Status Last Admin Aspirin 81 mg DAILY PO 05/02/25 10:00 05/02/25 09:59 Atorvastatin Calcium (Lipitor) 20 mg HS PO 05/02/25 22:00 Albuterol (Ventolin Medneb) 2.5 mg Q4HPRN PRN NEB SHORTNESS OF BREATH 05/02/25 05:00 Ipratropium [place] (Atrovent Medneb) 0.5 mg Q4HPRN PRN NEB SHORTNESS OF BREATH 05/02/25 05:00 05/02/25 05:10 DC Multivit/Ca Carb/ B Cmplx/FA/Prenat (Nephro-Kelly Tablet) 1 tab DAILY PO 05/02/25 10:00 05/02/25 09:58 Sevelamer HCl (Renagel) 800 mg TIDWM PO 05/02/25 08:00 05/02/25 11:53 Metoprolol Tartrate (Lopressor Tablet) 25 mg BID PO 05/02/25 10:00 05/02/25 09:59 Hydralazine HCl (Apresoline Injection) 10 mg Q6HP PRN IV SBP>150 05/02/25 05:00 Amlodipine Besylate (Norvasc Tablet) 5 mg DAILY PO 05/02/25 10:00 05/02/25 09:58 Albuterol (Ventolin Medneb) 2.5 mg Q4HPRN PRN NEB SHORTNESS OF BREATH 05/02/25 05:00 05/02/25 05:08 DC Ipratropium [place] (Atrovent Medneb) 0.5 mg Q4HPRN PRN NEB SHORTNESS OF BREATH 05/02/25 05:00 Sodium Chloride (Saline Lock Ns) 10 ml Q8HR IV 05/02/25 06:00 05/02/25 13:34 Acetaminophen/ Hydrocodone Bitart (Dufur 5/325MG Tab) 1 tab Q4HP PRN PO MODERATE PAIN (4-6 PAIN SCALE) 05/02/25 05:00 Ondansetron HCl (Zofran) 4 mg Q4HP PRN IV NAUSEA / VOMITING 05/02/25 05:00 Docusate Sodium (Colace Capsule) 100 mg BIDPRN PRN PO FOR CONSTIPATION 05/02/25 05:00 Acetaminophen (Tylenol Tablet) 650 mg Q6HP PRN PO PAIN SCALE 1-3 OR TEMP>100.4 05/02/25 05:00 Nitroglycerin (Ntrostat Sublingual) 0.4 mg Q5MINP PRN SL FOR CHEST PAIN 05/02/25 05:00 Morphine Sulfate 2 mg Q30M PRN IV FOR CHEST PAIN 05/02/25 05:00 05/02/25 05:29 Sertraline HCl (Zoloft) 50 mg DAILY PO 05/02/25 10:00 05/02/25 09:59 Furosemide (Lasix Injection) 40 mg BIDD IV 05/02/25 18:00 Ceftriaxone Sodium 50 ml @ 100 mls/hr DAILY@09 IV 05/03/25 09:00 Azithromycin 250 ml @ 125 mls/hr DAILY IV 05/03/25 10:00 Review of Systems Constitutional: No: Fever, Chills, Sweats, Weakness, Malaise, Other Eyes: No: Pain, Vision change, Conjunctivae inflammation, Eyelid inflammation, Other, Redness ENT: No: Ear pain, Ear discharge, Nose pain, Nose discharge, Nose congestion, Mouth pain, Mouth swelling, Throat pain, Throat swelling, Other Respiratory: No: Cough, Dry, Shortness of breath, SOB with exertion, Wheezing, Hemoptysis, Pleuritic Pain, Sputum, Wheezing, Other Cardiovascular: ; No: Chest Pain Palpitations, Orthopnea, Paroxysmal Noc. Dyspnea, Edema, Lt Headedness, Other Gastrointestinal: No: Nausea, Vomiting, Abdominal Pain, Diarrhea, Constipation, Melena, Hematochezia, Other Genitourinary: No Dysuria, No Frequency, No Incontinence, No Hematuria, No Retention, No Other Musculoskeletal: neck pain; No: other, shoulder pain, arm pain, back pain, hand pain, leg pain, foot pain Skin: No: Rash, Lesions, Jaundice, Bruising, Other Neurological: Other (Dizziness, headache.); No: Weakness, Numbness, Incoordination, Change in speech, Confusion, Seizures Vital Signs Vital Signs Date Time Temp Pulse Resp B/P (MAP) Pulse Ox O2 Delivery O2 Flow Rate FiO2 05/02/25 14:00 60 14 104/51 (68) 93 05/02/25 12:00 98.6 98.6 05/02/25 08:00 Nasal Cannula* 4 36 Physical Exam General appearance: Patient is well-developed, well-nourished, in acute distress. HEENT: Exam shows: Normocephalic, atraumatic, PERRLA, EOMI Neck: Supple, no bruits Chest: Equal chest excursion bilaterally. Breath sounds crackles/rales Heart: Rhythm: Regular rate; PVCs no murmur or gallop Abdomen: Exam shows: Soft, nontender, nondistended Musculoskeletal: No clubbing, no cyanosis, trace lower extremity edema Dermatology: Skin warm, moist. Neurological: Exam shows: Sleepy/tired and oriented x3, normal speech Available prior records, labs, EKG, rhythm strips reviewed and interpreted Labs/Diagnostic Data Labs Test 05/02/25 11:25 05/02/25 05:22 05/02/25 04:26 05/02/25 01:30 Range/Units White Blood Count 9.8 4.4-10.8 10^3/uL Red Blood Count 3.51 L 4.5-5.90 10^6/uL Hemoglobin 9.6 L 13.5-17.5 g/dL Hematocrit 29.6 L 41.0-53.0 % Mean Corpuscular Volume 84.3 80.0-100.0 fL Mean Corpuscular Hemoglobin 27.2 L 28.0-32.0 pg Mean Corpuscular Hemoglobin Concent 32.3 32.0-36.0 g/dL Red Cell Distribution Width 20.7 H 11.8-14.3 % Platelet Count 254 140-450 10^3/uL Mean Platelet Volume 8.2 6.9-10.8 fL Neutrophils (%) (Auto) 85.4 H 37.0-80.0 % Lymphocytes (%) (Auto) 5.9 L 10.0-50.0 % Monocytes (%) (Auto) 7.4 0.0-12.0 % Eosinophils (%) (Auto) 0.5 0.0-7.0 % Basophils (%) (Auto) 0.8 0.0-2.0 % Neutrophils # (Auto) 8.3 1.6-8.6 10 ^3/uL Lymphocytes # (Auto) 0.6 0.4-5.4 10 ^3/uL Monocytes # (Auto) 0.7 0-1.3 10 ^3/uL Eosinophils # (Auto) 0 0-0.8 10 ^3/uL Basophils # (Auto) 0.1 0-0.2 10 ^3/uL Nucleated Red Blood Cells 0.1 % Sodium Level 142 136-145 mmol/L Potassium Level 4.6 3.5-5.1 mmol/L Chloride Level 106 98-107 mmol/L Carbon Dioxide Level 17 L 20-31 mmol/L Anion Gap 19 H 5-15 Blood Urea Nitrogen 60 H 9-23 mg/dL Creatinine 10.52 *H 0.700-1.30 mg/dL Glomerular Filtration Rate Calc 5 >90 mL/min BUN/Creatinine Ratio 5.7 L 10.0-20.0 Serum Glucose 101 74-106 mg/dL Calcium Level 7.3 L 8.7-10.4 mg/dL Total Bilirubin 0.4 0.2-1.0 mg/dL Aspartate Amino Transferase (AST) 18 13-40 U/L Alanine Aminotransferase (ALT) < 9 7-40 U/L Alkaline Phosphatase 68 46-116 U/L B-Type Natriuretic Peptide 3246.98 0-100 pg/mL Total Protein 7.0 5.7-8.2 g/dL Albumin 4.2 3.2-4.8 g/dL Troponin I High Sensitivity 87 *H </=54 ng/L Blood Gas Specimen Type Arterial Blood Gas Sample Site Right brachial Blood Gas Patient Temperature 37.0 Arterial Blood Date Drawn [id number] Arterial Blood pH 7.365 7.350-7.450 Arterial Blood Partial Pressure CO2 27.3 L 35.0-48.0 mmHg Arterial Blood Partial Pressure O2 84.1 83.0-108.0 mmHg Arterial Blood HCO3 15.3 L 21.0-28.0 mmol/L Arterial Blood Oxygen Saturation 94.8 94.0-98.0 % Arterial Blood Base Excess -8.8 L -2.0-3.0 mmol/L Arterial Blood Oxyhemoglobin 93.4 L 94.0-98.0 % Arterial Blood Carboxyhemoglobin 1.4 0.5-1.5 % Arterial Blood Methemoglobin 0.1 0.0-1.5 % Daniel Test N/a Blood Gas Total Hemoglobin 10.50 L 13.5-17.5 g/dL Blood Gas Liter Flow 4.00 Blood Gas Modality Nasal cannula FiO2 % 36.0 Test 05/02/25 01:28 05/02/25 01:05 Range/Units Influenza Type A Antigen Negative Negative Influenza Type B Antigen Negative Negative SARS-CoV-2 Antigen (Rapid) Negative NEGATIVE Lactic Acid Level 1.1 0.4-2.0 mmol/L Assessment * Mildly Elevated Troponin, Atypical CP - troponins trending stable. Likely demand ischemia in setting of aortic stenosis, volume overload. Coronary angiogram 07/27/2021 negative for CAD. Continue medical management. * Acute on Chronic Diastolic HF - commenting continue aggressive dialysis with HD for volume control. Recent echo with normal EF. * Mod to Severe Aortic Stenosis - echo on 04/30/2025 showing EF 55 60%, moderate to severe aortic stenosis with peak mean pressure gradient 55/29 mmHg, calculated aortic valve area 1.0 cm2. Plan of care discussed with the patient, than for possible TAMARA in a.m. if breathing improves. * Uncontrolled HTN - better controlled, continue current regimen. * ESRD on HD - s/p HD with-3 L removed. Continue management per Nephrology * Medical/Medication Noncompliance -strongly advised medication and medical compliance. Case Discussed with Dr Milian. Elevated troponin likely demand ischemia in setting of fluid overload, uncontrolled HTN, moderate to severe aortic stenosis. Continue medical management. Patient was recently diagnosed with moderate to severe aortic stenosis on echo on 04/30/2025 though left AMA. Plan for TAMARA in a.m. once patient more euvolemic and breathing improves. NPO after midnight. Plan of care discussed with patient and is agreeable at this time. Critical care, time spent: 45 minutes This medical document was created using an electronic medical record system with voice recognition software and computerized dictation system. Although this document has been carefully reviewed, there might still be some phonetic and typographical errors. Occasional wrong-word or ``sound-alike substitutions may have occurred due to the inherent limitations of voice recognition software. These areas are purely typographical due to imperfections of the software programs and do not reflect any compromise in the patient's medical care. Please read the chart carefully and recognize, using context, where these substitutions have occurred. Thank you for allowing me to participate in the management of this patient. The treatment plan was discussed with and agreed upon by patient/family including requesting consultants and ordering of imaging/procedures. Plan discussed with: Patient NYHA Physical activity limitations: Class4(Severe)discomfort Date of Service: May 02, 2025 Billing Provider: MACK MCGHEE Cardiology Common Codes: 99105-NCTIOLM INP/OBS CARE (High), 96026-QVVTDAPULS HOSP CARE(High MACK MCGHEE May 02, 2025 14:50
[2025-05-02] MEDS: SODIUM CHL 0.9% 1000 ML BAG XX ONE (15:09)
[2025-05-02] MEDS: cefTRIAXone 1GM/50ML D5W 50 ML IV ONE (15:14)
--- NOTE | 2025-05-02 16:13 | DVHINCON2 ---
Date of service: May 02, [address] Shmuel Caraballo Reason for Consultation Acute respiratory failure History of Present Illness History Source: Patient Exam Limitations: No limitations HPI Patient is a 70-year old gentleman with a history of congestive heart failure and ESRD on HD who presented with shortness of breath. Was seen in the emergency room where chest x-ray demonstrated bilateral pleural effusions, greater on the right, and he was admitted for further management. Patient reports noncompliance with hemodialysis. Home Meds Active Scripts Atorvastatin Calcium (ATORVASTATIN CALCIUM) 40 Mg Tab, 40 MG PO DAILY for 30 Days, #30 TAB 0 Refills Prov:RANJAN SZYMANSKI RESIDENT 11/10/24 Reported Medications Sertraline HCl (Sertraline HCl) 50 Mg Tab, 50 MG PO DAILY, TAB 11/06/24 Clonidine Hydrochloride (Clonidine Hydrochloride) 0.3 Mg Tab, 0.3 MG PO TID, TAB 11/06/24 Sevelamer Carbonate (Renvela) 800 Mg Tab, 2 TAB PO TIDWM for 90 Days, #540 10/27/24 Alprazolam (Alprazolam) 1 Mg Tab, 1 TAB PO DAILYPRN PRN for ANXIETY for 30 Days, #30 10/27/24 Nifedipine (Nifedipine Er) 60 Mg Tab, 1 TAB PO DAILY 01/14/24 Tamsulosin Hcl (Tamsulosin Hcl) 0.4 Mg Cap, 1 CAP PO DAILY 01/14/24 Hydralazine Hcl (Hydralazine Hcl) 100 Mg Tab, 1 TAB PO DAILY for 30 Days, #30 01/14/24 Past Medical History Cardiac: CHF Pulmonary: No pertinent Hx Central Nervous System: No pertinent Hx GI: No pertinent Hx Hemotology/Oncology: No pertinent Hx Hepatobiliary: No pertinent Hx Psychiatric: No pertinent Hx Musculoskeletal: No pertinent Hx Rheumotologic: No pertinent Hx Infectious Disease: No peritnent Hx ENT: No pertinent Hx Renal/: ESRD HD/PD Endocrine: No pertinent Hx Dermatology: No pertinent Hx Past Surgical History: No pertinent Hx Family History: Arthritis, DM Patient Family History: Arthritis G8 MOTHER Cardiovascular disease G8 FATHER Diabetes mellitus G8 MOTHER G8 FATHER Smoker: No Hx (Negative) Alocohol: None Drugs: None Lives with: With family Domestic Violence: Neg Review of Systems Constitutional: No symptom reported Ears, Nose, & Throat: No symptom reported Eyes: No symptom reported Pulmonary/Respiratory: Dyspnea Cardiovascular: No symptom reported Gastrointestinal: No symptom reported Genitourinary: No symptom reported Musculoskeletal: No symptom reported Skin: No symptom reported Psychiatric: No symptom reported Endocrine: No symptom reported Hemotologic/Lymphatic: No symptom reported H&P Exam Vital Signs Vital Signs Date Time Temp Pulse Resp B/P (MAP) Pulse Ox O2 Delivery O2 Flow Rate FiO2 05/02/25 14:00 60 14 104/51 (68) 93 05/02/25 12:00 98.6 98.6 05/02/25 08:00 Nasal Cannula* 4 36 General Appeara: Well developed, Well nourished, Normal Appearance Head Exam: Normal inspection Neck Exam: Normal inspection, Non-tender, Normal alignment Eye Exam: bilateral eye Normal inspection, bilateral eye PERRL, bilateral eye EOMI Ear Exam: bilateral ear Auricle normal, bilateral ear Canal normal, bilateral ear TM normal Nasal Exam: Normal inspection Mouth: Normal Inspection Pulmonary/Respiratory: Normal inspection Cardiovascular/Chest: Normal inspection Peripheral Pulses: 4+ Radial (R), 4+ Radial (L), 4+ Brachial (R), 4+ Brachial (L) Abdominal Exam: Normal bowel sounds Labs/Xrays Labs Test 05/02/25 11:25 05/02/25 05:22 05/02/25 04:26 05/02/25 01:30 Range/Units White Blood Count 9.8 4.4-10.8 10^3/uL Red Blood Count 3.51 L 4.5-5.90 10^6/uL Hemoglobin 9.6 L 13.5-17.5 g/dL Hematocrit 29.6 L 41.0-53.0 % Mean Corpuscular Volume 84.3 80.0-100.0 fL Mean Corpuscular Hemoglobin 27.2 L 28.0-32.0 pg Mean Corpuscular Hemoglobin Concent 32.3 32.0-36.0 g/dL Red Cell Distribution Width 20.7 H 11.8-14.3 % Platelet Count 254 140-450 10^3/uL Mean Platelet Volume 8.2 6.9-10.8 fL Neutrophils (%) (Auto) 85.4 H 37.0-80.0 % Lymphocytes (%) (Auto) 5.9 L 10.0-50.0 % Monocytes (%) (Auto) 7.4 0.0-12.0 % Eosinophils (%) (Auto) 0.5 0.0-7.0 % Basophils (%) (Auto) 0.8 0.0-2.0 % Neutrophils # (Auto) 8.3 1.6-8.6 10 ^3/uL Lymphocytes # (Auto) 0.6 0.4-5.4 10 ^3/uL Monocytes # (Auto) 0.7 0-1.3 10 ^3/uL Eosinophils # (Auto) 0 0-0.8 10 ^3/uL Basophils # (Auto) 0.1 0-0.2 10 ^3/uL Nucleated Red Blood Cells 0.1 % Sodium Level 142 136-145 mmol/L Potassium Level 4.6 3.5-5.1 mmol/L Chloride Level 106 98-107 mmol/L Carbon Dioxide Level 17 L 20-31 mmol/L Anion Gap 19 H 5-15 Blood Urea Nitrogen 60 H 9-23 mg/dL Creatinine 10.52 *H 0.700-1.30 mg/dL Glomerular Filtration Rate Calc 5 >90 mL/min BUN/Creatinine Ratio 5.7 L 10.0-20.0 Serum Glucose 101 74-106 mg/dL Calcium Level 7.3 L 8.7-10.4 mg/dL Total Bilirubin 0.4 0.2-1.0 mg/dL Aspartate Amino Transferase (AST) 18 13-40 U/L Alanine Aminotransferase (ALT) < 9 7-40 U/L Alkaline Phosphatase 68 46-116 U/L B-Type Natriuretic Peptide 3246.98 0-100 pg/mL Total Protein 7.0 5.7-8.2 g/dL Albumin 4.2 3.2-4.8 g/dL Troponin I High Sensitivity 87 *H </=54 ng/L Blood Gas Specimen Type Arterial Blood Gas Sample Site Right brachial Blood Gas Patient Temperature 37.0 Arterial Blood Date Drawn [id number] Arterial Blood pH 7.365 7.350-7.450 Arterial Blood Partial Pressure CO2 27.3 L 35.0-48.0 mmHg Arterial Blood Partial Pressure O2 84.1 83.0-108.0 mmHg Arterial Blood HCO3 15.3 L 21.0-28.0 mmol/L Arterial Blood Oxygen Saturation 94.8 94.0-98.0 % Arterial Blood Base Excess -8.8 L -2.0-3.0 mmol/L Arterial Blood Oxyhemoglobin 93.4 L 94.0-98.0 % Arterial Blood Carboxyhemoglobin 1.4 0.5-1.5 % Arterial Blood Methemoglobin 0.1 0.0-1.5 % Daniel Test N/a Blood Gas Total Hemoglobin 10.50 L 13.5-17.5 g/dL Blood Gas Liter Flow 4.00 Blood Gas Modality Nasal cannula FiO2 % 36.0 Test 05/02/25 01:28 05/02/25 01:05 Range/Units Influenza Type A Antigen Negative Negative Influenza Type B Antigen Negative Negative SARS-CoV-2 Antigen (Rapid) Negative NEGATIVE Lactic Acid Level 1.1 0.4-2.0 mmol/L Assessment/Plan Plan Impression Acute hypoxemic respiratory failure Bilateral pleural effusions ESRD on HD CHF Patient seen and examined in the ER Events Low oxygen requirements On 2 liters nasal cannula Vital signs stable Labs and imaging reviewed Chest x-ray shows bilateral pleural effusions, greater on the right Management Supplemental oxygen Titrate to maintain sats 90% or above Incentive spirometry Bronchodilators Monitor renal function HD as per nephrology Management deferred Monitor electrolytes Supplement as needed DVT prophylaxis Plan discussed with: Patient ALAINA JENKINS MD May 02, 2025 16:13
[2025-05-02] MEDS: AZITHROMYCIN 500MG/ 250ML 250 ML IV ONE (16:14)
[2025-05-02] MEDS: FUROSEMIDE 40 MG/4 ML VIAL IV SCH (17:07)
[2025-05-02] MEDS: IPRATROPIUM BROM 0.5 MG/2.5ML INH SOL NEB PRN (19:35)
[2025-05-02] MEDS: ALBUTEROL SULF 2.5 MG/0.5ML(0.5%) NEB SOLN NEB PRN (19:35)
--- NOTE | 2025-05-02 19:37 | DVHINCON2 ---
Date of service: May 02, 2025 Referring Physician daniela Reason for Consultation esrd History of Present Illness 70 years old male with past medical history of CVA, Congestive heart failure, end-stage renal disease, hypertension, MT presented with chief complaints of shortness of breath patient is very noncompliant he misses dialysis as outpatient and reduces time on dialysis on arrival found to have blood pressure greater than SBP 200 seen and examined in emergency room arranged emergent dialysis today Has history of hernia repair Past Medical History As per HPI Past Surgical History As per HPI Allergies: Coded Allergies: NO KNOWN ALLERGIES (Unverified , 10/17/22) Home Meds Active Scripts Atorvastatin Calcium (ATORVASTATIN CALCIUM) 40 Mg Tab, 40 MG PO DAILY for 30 Days, #30 TAB 0 Refills Prov:RANJAN SZYMANSKI RESIDENT 11/10/24 Reported Medications Sertraline HCl (Sertraline HCl) 50 Mg Tab, 50 MG PO DAILY, TAB 11/06/24 Clonidine Hydrochloride (Clonidine Hydrochloride) 0.3 Mg Tab, 0.3 MG PO TID, TAB 11/06/24 Sevelamer Carbonate (Renvela) 800 Mg Tab, 2 TAB PO TIDWM for 90 Days, #540 10/27/24 Alprazolam (Alprazolam) 1 Mg Tab, 1 TAB PO DAILYPRN PRN for ANXIETY for 30 Days, #30 10/27/24 Nifedipine (Nifedipine Er) 60 Mg Tab, 1 TAB PO DAILY 01/14/24 Tamsulosin Hcl (Tamsulosin Hcl) 0.4 Mg Cap, 1 CAP PO DAILY 01/14/24 Hydralazine Hcl (Hydralazine Hcl) 100 Mg Tab, 1 TAB PO DAILY for 30 Days, #30 01/14/24 Current Medications Current Medications Medications (Trade) Dose Ordered Sig/Miguel Route PRN Reason Start Time Stop Time Status Last Admin Aspirin 81 mg DAILY PO 05/02/25 10:00 05/02/25 09:59 Atorvastatin Calcium (Lipitor) 20 mg HS PO 05/02/25 22:00 Albuterol (Ventolin Medneb) 2.5 mg Q4HPRN PRN NEB SHORTNESS OF BREATH 05/02/25 05:00 Ipratropium [place] (Atrovent Medneb) 0.5 mg Q4HPRN PRN NEB SHORTNESS OF BREATH 05/02/25 05:00 05/02/25 05:10 DC Multivit/Ca Carb/ B Cmplx/FA/Prenat (Nephro-Kelly Tablet) 1 tab DAILY PO 05/02/25 10:00 05/02/25 09:58 Sevelamer HCl (Renagel) 800 mg TIDWM PO 05/02/25 08:00 05/02/25 17:04 Metoprolol Tartrate (Lopressor Tablet) 25 mg BID PO 05/02/25 10:00 05/02/25 09:59 Hydralazine HCl (Apresoline Injection) 10 mg Q6HP PRN IV SBP>150 05/02/25 05:00 Amlodipine Besylate (Norvasc Tablet) 5 mg DAILY PO 05/02/25 10:00 05/02/25 09:58 Albuterol (Ventolin Medneb) 2.5 mg Q4HPRN PRN NEB SHORTNESS OF BREATH 05/02/25 05:00 05/02/25 05:08 DC Ipratropium [place] (Atrovent Medneb) 0.5 mg Q4HPRN PRN NEB SHORTNESS OF BREATH 05/02/25 05:00 Sodium Chloride (Saline Lock Ns) 10 ml Q8HR IV 05/02/25 06:00 05/02/25 13:34 Acetaminophen/ Hydrocodone Bitart ([place] 5/325MG Tab) 1 tab Q4HP PRN PO MODERATE PAIN (4-6 PAIN SCALE) 05/02/25 05:00 Ondansetron HCl (Zofran) 4 mg Q4HP PRN IV NAUSEA / VOMITING 05/02/25 05:00 Docusate Sodium (Colace Capsule) 100 mg BIDPRN PRN PO FOR CONSTIPATION 05/02/25 05:00 Acetaminophen (Tylenol Tablet) 650 mg Q6HP PRN PO PAIN SCALE 1-3 OR TEMP>100.4 05/02/25 05:00 Nitroglycerin (Ntrostat Sublingual) 0.4 mg Q5MINP PRN SL FOR CHEST PAIN 05/02/25 05:00 Morphine Sulfate 2 mg Q30M PRN IV FOR CHEST PAIN 05/02/25 05:00 05/02/25 05:29 Sertraline HCl (Zoloft) 50 mg DAILY PO 05/02/25 10:00 05/02/25 09:59 Furosemide (Lasix Injection) 40 mg BIDD IV 05/02/25 18:00 05/02/25 17:07 Ceftriaxone Sodium 50 ml @ 100 mls/hr DAILY@09 IV 05/03/25 09:00 Azithromycin 250 ml @ 125 mls/hr DAILY IV 05/03/25 10:00 Family History: Arthritis G8 MOTHER Cardiovascular disease G8 FATHER Diabetes mellitus G8 MOTHER G8 FATHER Review of Systems As documented in HPI H&P Exam Vital Signs/I&O Vital Sign Date Time Temp Pulse Resp B/P (MAP) Pulse Ox O2 Delivery O2 Flow Rate FiO2 05/02/25 18:00 61 18 128/46 (73) 95 05/02/25 12:00 98.6 98.6 05/02/25 08:00 Nasal Cannula* 4 36 Physical Exam General-in respiratory distress HEENT-normocephalic, no icterus, no pallor, neck supple Respiratory-fair air entry bilateral, positive rales [id number] heard, no murmurs appreciated Abdominal-soft, nontender, nondistended Musculoskeletal-positive pedal edema, no calf tenderness Genitourinary-deferred Neuro-awake alert oriented x3, Psychiatric-not agitated, cooperative, Labs/Diagnostic Data Labs/Diagnostic Data Laboratory Tests Test 05/02/25 11:25 05/02/25 05:22 05/02/25 04:26 05/02/25 02:30 Range/Units White Blood Count 9.8 4.4-10.8 10^3/uL Red Blood Count 3.51 L 4.5-5.90 10^6/uL Hemoglobin 9.6 L 13.5-17.5 g/dL Hematocrit 29.6 L 41.0-53.0 % Mean Corpuscular Volume 84.3 80.0-100.0 fL Mean Corpuscular Hemoglobin 27.2 L 28.0-32.0 pg Mean Corpuscular Hemoglobin Concent 32.3 32.0-36.0 g/dL Red Cell Distribution Width 20.7 H 11.8-14.3 % Platelet Count 254 140-450 10^3/uL Mean Platelet Volume 8.2 6.9-10.8 fL Neutrophils (%) (Auto) 85.4 H 37.0-80.0 % Lymphocytes (%) (Auto) 5.9 L 10.0-50.0 % Monocytes (%) (Auto) 7.4 0.0-12.0 % Eosinophils (%) (Auto) 0.5 0.0-7.0 % Basophils (%) (Auto) 0.8 0.0-2.0 % Neutrophils # (Auto) 8.3 1.6-8.6 10 ^3/uL Lymphocytes # (Auto) 0.6 0.4-5.4 10 ^3/uL Monocytes # (Auto) 0.7 0-1.3 10 ^3/uL Eosinophils # (Auto) 0 0-0.8 10 ^3/uL Basophils # (Auto) 0.1 0-0.2 10 ^3/uL Nucleated Red Blood Cells 0.1 % Sodium Level 142 136-145 mmol/L Potassium Level 4.6 3.5-5.1 mmol/L Chloride Level 106 98-107 mmol/L Carbon Dioxide Level 17 L 20-31 mmol/L Anion Gap 19 H 5-15 Blood Urea Nitrogen 60 H 9-23 mg/dL Creatinine 10.52 *H 0.700-1.30 mg/dL Glomerular Filtration Rate Calc 5 >90 mL/min BUN/Creatinine Ratio 5.7 L 10.0-20.0 Serum Glucose 101 74-106 mg/dL Calcium Level 7.3 L 8.7-10.4 mg/dL Total Bilirubin 0.4 0.2-1.0 mg/dL Aspartate Amino Transferase (AST) 18 13-40 U/L Alanine Aminotransferase (ALT) < 9 7-40 U/L Alkaline Phosphatase 68 46-116 U/L B-Type Natriuretic Peptide 3246.98 0-100 pg/mL Total Protein 7.0 5.7-8.2 g/dL Albumin 4.2 3.2-4.8 g/dL Troponin I High Sensitivity 87 *H 98 *H </=54 ng/L Test 05/02/25 01:30 05/02/25 01:28 05/02/25 01:05 Range/Units Blood Gas Specimen Type Arterial Blood Gas Sample Site Right brachial Blood Gas Patient Temperature 37.0 Arterial Blood Date Drawn [id number] Arterial Blood pH 7.365 7.350-7.450 Arterial Blood Partial Pressure CO2 27.3 L 35.0-48.0 mmHg Arterial Blood Partial Pressure O2 84.1 83.0-108.0 mmHg Arterial Blood HCO3 15.3 L 21.0-28.0 mmol/L Arterial Blood Oxygen Saturation 94.8 94.0-98.0 % Arterial Blood Base Excess -8.8 L -2.0-3.0 mmol/L Arterial Blood Oxyhemoglobin 93.4 L 94.0-98.0 % Arterial Blood Carboxyhemoglobin 1.4 0.5-1.5 % Arterial Blood Methemoglobin 0.1 0.0-1.5 % Daniel Test N/a Blood Gas Total Hemoglobin 10.50 L 13.5-17.5 g/dL Blood Gas Liter Flow 4.00 Blood Gas Modality Nasal cannula FiO2 % 36.0 Influenza Type A Antigen Negative Negative Influenza Type B Antigen Negative Negative SARS-CoV-2 Antigen (Rapid) Negative NEGATIVE White Blood Count 10.1 4.4-10.8 10^3/uL Red Blood Count 3.57 L 4.5-5.90 10^6/uL Hemoglobin 9.8 L 13.5-17.5 g/dL Hematocrit 30.8 L 41.0-53.0 % Mean Corpuscular Volume 86.1 80.0-100.0 fL Mean Corpuscular Hemoglobin 27.3 L 28.0-32.0 pg Mean Corpuscular Hemoglobin Concent 31.7 L 32.0-36.0 g/dL Red Cell Distribution Width 20.9 H 11.8-14.3 % Platelet Count 250 140-450 10^3/uL Mean Platelet Volume 8.0 6.9-10.8 fL Neutrophils (%) (Auto) 86.2 H 37.0-80.0 % Lymphocytes (%) (Auto) 3.9 L 10.0-50.0 % Monocytes (%) (Auto) 7.8 0.0-12.0 % Eosinophils (%) (Auto) 1.4 0.0-7.0 % Basophils (%) (Auto) 0.7 0.0-2.0 % Neutrophils # (Auto) 8.7 H 1.6-8.6 10 ^3/uL Lymphocytes # (Auto) 0.4 0.4-5.4 10 ^3/uL Monocytes # (Auto) 0.8 0-1.3 10 ^3/uL Eosinophils # (Auto) 0.1 0-0.8 10 ^3/uL Basophils # (Auto) 0.1 0-0.2 10 ^3/uL Nucleated Red Blood Cells 0.0 % Sodium Level 142 136-145 mmol/L Potassium Level 4.5 3.5-5.1 mmol/L Chloride Level 106 98-107 mmol/L Carbon Dioxide Level 17 L 20-31 mmol/L Anion Gap 19 H 5-15 Blood Urea Nitrogen 56 #H 9-23 mg/dL Creatinine 10.33 *H 0.700-1.30 mg/dL Glomerular Filtration Rate Calc 5 >90 mL/min BUN/Creatinine Ratio 5.4 L 10.0-20.0 Serum Glucose 97 74-106 mg/dL Lactic Acid Level 1.1 0.4-2.0 mmol/L Calcium Level 6.8 L 8.7-10.4 mg/dL Total Bilirubin 0.5 0.2-1.0 mg/dL Aspartate Amino Transferase (AST) 20 13-40 U/L Alanine Aminotransferase (ALT) < 9 7-40 U/L Alkaline Phosphatase 77 46-116 U/L Troponin I High Sensitivity 96 *H </=54 ng/L B-Type Natriuretic Peptide 2979.32 0-100 pg/mL Total Protein 7.5 5.7-8.2 g/dL Albumin 4.5 3.2-4.8 g/dL Assessment ESRD on dialysis Acute hypoxic respiratory failure Hypertensive emergency Missed Dialysis Noncompliance Obesity Anemia Recommendations Arranged emergent dialysis today seen on HD If staffing permits we will repeat tomorrow We will follow closely Plan discussed with: Patient RIVER MCKINNON MD May 02, 2025 19:37
[2025-05-02] MEDS: HYDROcodone-ACET 5/325MG TAB PO PRN (20:53)
[2025-05-02] MEDS: ATORVASTATIN 20 MG TAB PO SCH (21:09)
[2025-05-02] MEDS: EPOETIN ALFA-EPBX 4,000 UNIT/ML VIAL SC ONE (21:10)
[2025-05-03] VITALS (15 sets, daily range): BP systolic 145–197; BP diastolic 57–90; PULSE 59–88; RESP 17–21; TEMP 97.9–98.3; O2SAT 70–98
[2025-05-03] MEDS: hydrALAZINE HCL 20 MG/ML VL IV PRN (04:46)
[2025-05-03] MEDS: cefTRIAXone 1GM/50ML D5W 50 ML IV SCH (08:51)
[2025-05-03] MEDS: MIDAZOLAM HCL 2MG/2ML 2ml VIAL (1mg/ml) IV ONE (08:58)
[2025-05-03] MEDS: LIDOCAINE VISCOUS 2% 15ML UD PO ONE (08:58)
[2025-05-03] MEDS: fentaNYL CITRATE 100 MCG/2 ML VL IV ONE (08:58)
--- NOTE | 2025-05-03 09:42 | DVHOP2 ---
Operative Report Trans-Esophageal Echocardiogram PROCEDURE REPORT Date of Service: 05/03/2025 Wing Commander: Brandi Vail MD PROCEDURE PERFORMED: Transesophageal echocardiogram, conscious sedation administration and supervision, more than 15 minutes. Intra cardiac bubble study. PREOPERATIVE DIAGNOSES: r/o Valvular heart disease. DESCRIPTION OF PROCEDURE: The patient signed informed consent understanding risks, benefits and alternatives of the procedure, he wished to proceed. The patient was given 15 mL of oral viscous lidocaine. He was placed in a left lateral decubitus position and conscious sedation was administered per [employer] protocol (1 mg of Versed and 25 mcg of Fentanyl). I administered a bite block into his mouth and a TAMARA probe into the mid esophagus without any difficulties or complications. Multiple planar images were obtained. Bubble study was also performed. At the completion of procedure, TAMARA probe was removed and there were no immediate complications. Vitals signs were stable throughout the procedure. FINDINGS: 1. Left ventricle: Mild concentrated Left ventricular hypertrophy was seen. LVEF was 60%. There was no gross wall motion abnormality seen. 2. Right ventricle: RV was normal sized with normal systolic function. 3. Left atrium: LA enlarged 4. Right atrium: RA was normal sized. 5. Mitral valve: Mild Mitral regurgitation, no significant stenosis, normal functioning valve. There was no vegetation 6. Left atrial appendage: No evidence of thrombus. 7. Aortic valve: Trileaflet valve. There was mild decrease in opening of leaflets. There were sclerotic leaflets. Planinometry revealed RICO of 2.1 cm. At most, mild Aortic stenosis was identified. There was no vegetation. 8. Pulmonic valve: There was no stenosis/insufficiency. There was no vegetation. 9. Tricuspid valve: Moderate tricuspid regurgitation. There was no vegetation 10. Interatrial septum: Negative color flow for right to left shunt was observed. Bubble study was performed: negative for shunt 11. Pericardium: No significant effusion. 12. Thoracic aorta: No significant plaquing. Aortic Sclerosis with at most mild stenosis was identified. BRANDI VAIL MD May 03, 2025 09:42
[2025-05-03] MEDS: AZITHROMYCIN 500MG/ 250ML 250 ML IV SCH (10:46)
--- NOTE | 2025-05-03 11:00 | DVHPN2 ---
Progress Note Date Seen: May 03, 2025 Medical Necessity Reason Pt with a Central, PICC or Fol: No Subjective Patient reports: Feels better Objective vital signs Vital Sign Date Time Temp Pulse Resp B/P (MAP) Pulse Ox O2 Delivery O2 Flow Rate FiO2 05/03/25 10:46 150/72 05/03/25 10:45 67 05/03/25 10:10 18 97 05/03/25 09:10 98.1 98.1 05/03/25 07:50 Nasal Cannula* 3 32 Total Intake and Output 05/02/25 05/02/25 05/03/25 15:00 23:00 07:00 Intake Total 50 ml 500 ml Balance 50 ml 500 ml medications Current Medications Medications Dose Ordered Sig/Miguel Route Start Time Stop Time Status Last Admin Dose Admin Aspirin 81 mg DAILY PO 05/02/25 10:00 05/03/25 10:46 81 MG Atorvastatin Calcium 20 mg HS PO 05/02/25 22:00 05/02/25 21:09 20 MG Albuterol 2.5 mg Q4HPRN PRN NEB 05/02/25 05:00 05/02/25 19:35 2.5 MG Multivit/Ca Carb/ B Cmplx/FA/Prenat 1 tab DAILY PO 05/02/25 10:00 05/03/25 10:46 1 TAB Sevelamer HCl 800 mg TIDWM PO 05/02/25 08:00 05/02/25 17:04 800 MG Metoprolol Tartrate 25 mg BID PO 05/02/25 10:00 05/03/25 10:45 25 MG Hydralazine HCl 10 mg Q6HP PRN IV 05/02/25 05:00 05/03/25 04:46 10 MG Amlodipine Besylate 5 mg DAILY PO 05/02/25 10:00 05/03/25 10:46 5 MG Ipratropium [place] 0.5 mg Q4HPRN PRN NEB 05/02/25 05:00 05/02/25 19:35 0.5 MG Sodium Chloride 10 ml Q8HR IV 05/02/25 06:00 05/03/25 06:06 10 ML Acetaminophen/ Hydrocodone Bitart 1 tab Q4HP PRN PO 05/02/25 05:00 05/02/25 20:53 1 TAB Ondansetron HCl 4 mg Q4HP PRN IV 05/02/25 05:00 Docusate Sodium 100 mg BIDPRN PRN PO 05/02/25 05:00 Acetaminophen 650 mg Q6HP PRN PO 05/02/25 05:00 Nitroglycerin 0.4 mg Q5MINP PRN SL 05/02/25 05:00 Morphine Sulfate 2 mg Q30M PRN IV 05/02/25 05:00 05/02/25 05:29 2 MG Sertraline HCl 50 mg DAILY PO 05/02/25 10:00 05/03/25 10:45 50 MG Furosemide 40 mg BIDD IV 05/02/25 18:00 05/03/25 06:06 40 MG Ceftriaxone Sodium 50 ml @ 100 mls/hr DAILY@09 IV 05/03/25 09:00 Azithromycin 250 ml @ 125 mls/hr DAILY IV 05/03/25 10:00 05/03/25 10:46 125 MLS/HR Examination: GENERAL:Normal, CVS:Normal laboratory and microbiology Laboratory Tests 05/02/25 05:22 Test 05/02/25 05:22 Range/Units Serum Glucose 101 74-106 mg/dL Problem List/Assessment/Plan Problem List/Assessment/Plan ESRD on dialysis Acute hypoxic respiratory failure Hypertensive emergency Missed Dialysis Noncompliance Obesity Anemia Add nifedpine to improve BP continue home BP meds HD saturday Plan discussed with: Patient CELY [place] MD May 03, 2025 11:00
[2025-05-03 13:12] LABS: Hematocrit 30.0 % (41.0-53.0); Hemoglobin 9.5 g/dL (13.5-17.5); Mean Corpuscular Hemoglobin 27.1 pg (28.0-32.0); Mean Corpuscular Volume 86.0 fL (80.0-100.0); Nucleated Red Blood Cells % 0.1 %
--- NOTE | 2025-05-03 13:22 | DVHPN2 ---
Consult Progress Note Subjective Other Systems: Patient in normal sinus rhythm at time of assessment. Denies any cardiac symptoms Objective vital signs Vital Sign Date Time Temp Pulse Resp B/P (MAP) Pulse Ox O2 Delivery O2 Flow Rate FiO2 05/03/25 12:57 97.9 64 17 162/78 (106) 92 97.9 05/03/25 07:50 Nasal Cannula* 3 32 Total Intake and Output 05/02/25 05/02/25 05/03/25 15:00 23:00 07:00 Intake Total 50 ml 500 ml Balance 50 ml 500 ml medications Current Medications Medications Dose Ordered Sig/Miguel Route Start Time Stop Time Status Last Admin Dose Admin Aspirin 81 mg DAILY PO 05/02/25 10:00 05/03/25 10:46 81 MG Atorvastatin Calcium 20 mg HS PO 05/02/25 22:00 05/02/25 21:09 20 MG Albuterol 2.5 mg Q4HPRN PRN NEB 05/02/25 05:00 05/02/25 19:35 2.5 MG Multivit/Ca Carb/ B Cmplx/FA/Prenat 1 tab DAILY PO 05/02/25 10:00 05/03/25 10:46 1 TAB Sevelamer HCl 800 mg TIDWM PO 05/02/25 08:00 05/03/25 12:07 800 MG Metoprolol Tartrate 25 mg BID PO 05/02/25 10:00 05/03/25 10:45 25 MG Hydralazine HCl 10 mg Q6HP PRN IV 05/02/25 05:00 05/03/25 04:46 10 MG Ipratropium [place] 0.5 mg Q4HPRN PRN NEB 05/02/25 05:00 05/02/25 19:35 0.5 MG Sodium Chloride 10 ml Q8HR IV 05/02/25 06:00 05/03/25 06:06 10 ML Acetaminophen/ Hydrocodone Bitart 1 tab Q4HP PRN PO 05/02/25 05:00 05/02/25 20:53 1 TAB Ondansetron HCl 4 mg Q4HP PRN IV 05/02/25 05:00 Docusate Sodium 100 mg BIDPRN PRN PO 05/02/25 05:00 Acetaminophen 650 mg Q6HP PRN PO 05/02/25 05:00 Nitroglycerin 0.4 mg Q5MINP PRN SL 05/02/25 05:00 Morphine Sulfate 2 mg Q30M PRN IV 05/02/25 05:00 05/02/25 05:29 2 MG Sertraline HCl 50 mg DAILY PO 05/02/25 10:00 05/03/25 10:45 50 MG Furosemide 40 mg BIDD IV 05/02/25 18:00 05/03/25 06:06 40 MG Ceftriaxone Sodium 50 ml @ 100 mls/hr DAILY@09 IV 05/03/25 09:00 Azithromycin 250 ml @ 125 mls/hr DAILY IV 05/03/25 10:00 05/03/25 10:46 125 MLS/HR Nifedipine 30 mg DAILY PO 05/04/25 10:00 Examination: GENERAL:Normal, LUNGS:Abnormal (Expiratory wheezing), CVS:Normal, NEURO:Normal laboratory and microbiology Test 05/03/25 13:00 Range/Units Serum Glucose Pending Problem List/Assessment/Plan Problem List/Assessment/Plan Hypertensive urgency Acute on chronic decompensated HFpEF, NYHA class III NSTEMI, likely type 2 secondary to above Aortic stenosis, mild degree ESRD on HD Obesity Medical noncompliance Plan/recommendations (Dr. Ramirez): The patient underwent a transesophageal echocardiogram which revealed an EF of 60% with no gross wall motion abnormality. Mild aortic stenosis was also identified. We will recommend to continue with medical management. Continue with aggressive BP control as tolerated by patient. Strict intake and output, daily weights, and maintain fluid restriction. Nephrology consult and recommendations. Continue with close cardiac surveillance. Thank you for allowing us to care for this patient. Please call with any questions or concerns. This medical document was created using an electronic medical record system with voice recognition software and computerized dictation system. Although this document has been carefully reviewed, there might still be some phonetic and typographical errors. Occasional wrong-word or ``sound-alike substitutions may have occurred due to the inherent limitations of voice recognition software. These areas are purely typographical due to imperfections of the software programs and do not reflect any compromise in the patient's medical care. Please read the chart carefully and recognize, using context, where these substitutions have occurred. Plan discussed with: Patient Date of Service: May 03, 2025 Billing Provider: DOLORES UMANA Common Visit Codes: [id number] INP/OBS CARE(HIGH) DOLORES UMANA [facility] May 03, 2025 13:21
[2025-05-03 13:31] LABS: Alanine Aminotransferase 10 U/L (7-40); Albumin 3.7 g/dL (3.2-4.8); Alkaline Phosphatase 65 U/L (46-116); Anion Gap 14 (5-15); BUN/Creatinine Ratio 6.4 (10.0-20.0); Carbon Dioxide 23 mmol/L (20-31); Chloride 104 mmol/L (98-107); Glucose 93 mg/dL (74-106); Potassium 4.3 mmol/L (3.5-5.1); Sodium 141 mmol/L (136-145); Total Protein 6.2 g/dL (5.7-8.2)
[2025-05-03 13:44] LABS: Bilirubin, Total 0.3 mg/dL (0.2-1.0); Blood Urea Nitrogen 50 mg/dL (9-23); Calcium 6.8 mg/dL (8.7-10.4)
--- NOTE | 2025-05-03 13:45 | DVHPN2 ---
Reviewed: Care Plan, H&P, Labs, Medications, Previous Orders, Radiology Changes from previous H/P or p: No Changes Eyes: No Pain, No Vision change, No Conjunctivae inflammation, No Eyelid inflammation, No Other, No Redness ENT: No Ear pain, No Ear discharge, No Nose pain, No Nose discharge, No Nose congestion, No Mouth pain, No Mouth swelling, No Throat pain, No Throat swelling, No Other Cardiovascular: No Chest Pain, No Palpitations, No Orthopnea, No Paroxysmal Noc. 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); No neck pain, No shoulder pain, No arm pain, No back pain, No hand pain, No leg pain, No foot pain Skin: No Rash, No Lesions, No Jaundice, No Bruising, No Other Objective Vitals Vital Signs Date Time Temp Pulse Resp B/P (MAP) Pulse Ox O2 Delivery O2 Flow Rate FiO2 05/03/25 12:57 97.9 64 17 162/78 (106) 92 97.9 05/03/25 07:50 Nasal Cannula* 3 32 Intake/Output Intake and Output 05/03/25 07:00 Intake Total 550 ml Balance 550 ml Intake Oral 500 ml IV Total 50 ml # Voids 3 Medications Current Medications Medications Dose Ordered Sig/Miguel Route Start Time Stop Time Status Last Admin Dose Admin Aspirin 81 mg DAILY PO 05/02/25 10:00 05/03/25 10:46 81 MG Atorvastatin Calcium 20 mg HS PO 05/02/25 22:00 05/02/25 21:09 20 MG Albuterol 2.5 mg Q4HPRN PRN NEB 05/02/25 05:00 05/02/25 19:35 2.5 MG Multivit/Ca Carb/ B Cmplx/FA/Prenat 1 tab DAILY PO 05/02/25 10:00 05/03/25 10:46 1 TAB Sevelamer HCl 800 mg TIDWM PO 05/02/25 08:00 05/03/25 12:07 800 MG Metoprolol Tartrate 25 mg BID PO 05/02/25 10:00 05/03/25 10:45 25 MG Hydralazine HCl 10 mg Q6HP PRN IV 05/02/25 05:00 05/03/25 04:46 10 MG Ipratropium [place] 0.5 mg Q4HPRN PRN NEB 05/02/25 05:00 05/02/25 19:35 0.5 MG Sodium Chloride 10 ml Q8HR IV 05/02/25 06:00 05/03/25 06:06 10 ML Acetaminophen/ Hydrocodone Bitart 1 tab Q4HP PRN PO 05/02/25 05:00 05/02/25 20:53 1 TAB Ondansetron HCl 4 mg Q4HP PRN IV 05/02/25 05:00 Docusate Sodium 100 mg BIDPRN PRN PO 05/02/25 05:00 Acetaminophen 650 mg Q6HP PRN PO 05/02/25 05:00 Nitroglycerin 0.4 mg Q5MINP PRN SL 05/02/25 05:00 Morphine Sulfate 2 mg Q30M PRN IV 05/02/25 05:00 05/02/25 05:29 2 MG Sertraline HCl 50 mg DAILY PO 05/02/25 10:00 05/03/25 10:45 50 MG Furosemide 40 mg BIDD IV 05/02/25 18:00 05/03/25 06:06 40 MG Ceftriaxone Sodium 50 ml @ 100 mls/hr DAILY@09 IV 05/03/25 09:00 Azithromycin 250 ml @ 125 mls/hr DAILY IV 05/03/25 10:00 05/03/25 10:46 125 MLS/HR Nifedipine 30 mg DAILY PO 05/04/25 10:00 Laboratory Results Laboratory Tests 05/03/25 13:00 Chemistry Test 05/03/25 13:00 Albumin Pending Calcium Level Pending Total Protein Pending LFT Test 05/03/25 13:00 Alanine Aminotransferase (ALT) Pending Alkaline Phosphatase Pending Aspartate Amino Transferase (AST) Pending Total Bilirubin Pending Labs and/or images reviewed: Labs reviewed by me, Image(s) reviewed by me Assessment/Plan Assessment/Plan Acute hypoxic respiratory failure: Oxygen by nasal cannula Acute community-acquired bilateral pneumonia Gram-positive versus Gram-negative: Rocephin azithromycin, albuterol Atrovent Solu-Medrol ESRD on hemodialysis consult for Dr. Farley Hypertensive urgency Pulmonary edema Non ST-elevation [place] consult for Dr. Milian Acute CHF exacerbation: Lasix consult for Dr. Milian Anemia of chronic disease Generalized weakness Patient lives with his sister Patient is hospice revoked Time Spent 55 minute Patient is full code Plan discussed with: Patient Date of Service: May 03, 2025 Billing Provider: CHUNG GOODWIN MD Common Visit Codes: [id number] INP/OBS CARE(HIGH) CHUNG GOODWIN MD May 03, 2025 13:45
--- NOTE | 2025-05-03 18:36 | DVHPN2 ---
Progress Note - Dictate Date Seen: May 03, 2025 Medical Necessity Reason Pt with a Central, PICC or Fol: No vital signs Vital Sign Date Time Temp Pulse Resp B/P (MAP) Pulse Ox O2 Delivery O2 Flow Rate FiO2 05/03/25 17:00 97.9 59 18 175/82 (113) 93 97.9 05/03/25 07:50 Nasal Cannula* 3 32 Total Intake and Output 05/02/25 05/02/25 05/03/25 15:00 23:00 07:00 Intake Total 50 ml 500 ml Balance 50 ml 500 ml medications Current Medications Medications Dose Ordered Sig/Miguel Route Start Time Stop Time Status Last Admin Dose Admin Aspirin 81 mg DAILY PO 05/02/25 10:00 05/03/25 10:46 81 MG Atorvastatin Calcium 20 mg HS PO 05/02/25 22:00 05/02/25 21:09 20 MG Albuterol 2.5 mg Q4HPRN PRN NEB 05/02/25 05:00 05/02/25 19:35 2.5 MG Multivit/Ca Carb/ B Cmplx/FA/Prenat 1 tab DAILY PO 05/02/25 10:00 05/03/25 10:46 1 TAB Sevelamer HCl 800 mg TIDWM PO 05/02/25 08:00 05/03/25 12:07 800 MG Metoprolol Tartrate 25 mg BID PO 05/02/25 10:00 05/03/25 10:45 25 MG Hydralazine HCl 10 mg Q6HP PRN IV 05/02/25 05:00 05/03/25 04:46 10 MG Ipratropium [place] 0.5 mg Q4HPRN PRN NEB 05/02/25 05:00 05/02/25 19:35 0.5 MG Sodium Chloride 10 ml Q8HR IV 05/02/25 06:00 05/03/25 06:06 10 ML Acetaminophen/ Hydrocodone Bitart 1 tab Q4HP PRN PO 05/02/25 05:00 05/02/25 20:53 1 TAB Ondansetron HCl 4 mg Q4HP PRN IV 05/02/25 05:00 Docusate Sodium 100 mg BIDPRN PRN PO 05/02/25 05:00 Acetaminophen 650 mg Q6HP PRN PO 05/02/25 05:00 Nitroglycerin 0.4 mg Q5MINP PRN SL 05/02/25 05:00 Morphine Sulfate 2 mg Q30M PRN IV 05/02/25 05:00 05/02/25 05:29 2 MG Sertraline HCl 50 mg DAILY PO 05/02/25 10:00 05/03/25 10:45 50 MG Furosemide 40 mg BIDD IV 05/02/25 18:00 05/03/25 06:06 40 MG Ceftriaxone Sodium 50 ml @ 100 mls/hr DAILY@09 IV 05/03/25 09:00 Azithromycin 250 ml @ 125 mls/hr DAILY IV 05/03/25 10:00 05/03/25 10:46 125 MLS/HR Nifedipine 30 mg DAILY PO 05/04/25 10:00 laboratory and microbiology Laboratory Tests 05/03/25 13:00 Test 05/03/25 13:00 Range/Units Serum Glucose 93 74-106 mg/dL Assessment/Plan Impression Acute hypoxemic respiratory failure Bilateral pleural effusions ESRD on HD CHF Patient seen and examined Events Low oxygen requirements On 2 liters nasal cannula No acute events Clinically improved following hemodialysis 3 liters removed Labs and imaging reviewed Management Supplemental oxygen Titrate to maintain sats 90% or above Incentive spirometry Bronchodilators Monitor renal function HD as per nephrology Management deferred Monitor electrolytes Supplement as needed Obtain chest x-ray in AM If pleural effusions are visualized, we will consider thoracentesis DVT prophylaxis Plan discussed with: Patient ALAINA JENKINS MD May 03, 2025 18:36
--- NOTE | 2025-05-03 22:31 | DVHPN2 ---
Consult Progress Note Date Seen: May 03, 2025 Subjective Other Systems: Patient was seen and evaluated in follow up. Patient is on 4 LPM NC. Patient is in normal sinus rhythm at time of assessment. Denies any cardiac symptoms. HGB 9.5, HCT 30, BUN 50, METAL BUMPER 7.86. Objective vital signs Vital Sign Date Time Temp Pulse Resp B/P (MAP) Pulse Ox O2 Delivery O2 Flow Rate FiO2 05/03/25 22:02 95 Nasal Cannula* 4 36 05/03/25 21:43 69 157/61 05/03/25 21:00 98.0 18 98.0 Total Intake and Output 05/02/25 05/02/25 05/03/25 15:00 23:00 07:00 Intake Total 50 ml 500 ml Balance 50 ml 500 ml medications Current Medications Medications Dose Ordered Sig/Miguel Route Start Time Stop Time Status Last Admin Dose Admin Aspirin 81 mg DAILY PO 05/02/25 10:00 05/03/25 10:46 81 MG Atorvastatin Calcium 20 mg HS PO 05/02/25 22:00 05/03/25 21:43 20 MG Albuterol 2.5 mg Q4HPRN PRN NEB 05/02/25 05:00 05/02/25 19:35 2.5 MG Multivit/Ca Carb/ B Cmplx/FA/Prenat 1 tab DAILY PO 05/02/25 10:00 05/03/25 10:46 1 TAB Sevelamer HCl 800 mg TIDWM PO 05/02/25 08:00 05/03/25 12:07 800 MG Metoprolol Tartrate 25 mg BID PO 05/02/25 10:00 05/03/25 21:43 25 MG Hydralazine HCl 10 mg Q6HP PRN IV 05/02/25 05:00 05/03/25 04:46 10 MG Ipratropium [place] 0.5 mg Q4HPRN PRN NEB 05/02/25 05:00 05/02/25 19:35 0.5 MG Sodium Chloride 10 ml Q8HR IV 05/02/25 06:00 05/03/25 21:43 10 ML Acetaminophen/ Hydrocodone Bitart 1 tab Q4HP PRN PO 05/02/25 05:00 05/02/25 20:53 1 TAB Ondansetron HCl 4 mg Q4HP PRN IV 05/02/25 05:00 Docusate Sodium 100 mg BIDPRN PRN PO 05/02/25 05:00 Acetaminophen 650 mg Q6HP PRN PO 05/02/25 05:00 Nitroglycerin 0.4 mg Q5MINP PRN SL 05/02/25 05:00 Morphine Sulfate 2 mg Q30M PRN IV 05/02/25 05:00 05/02/25 05:29 2 MG Sertraline HCl 50 mg DAILY PO 05/02/25 10:00 05/03/25 10:45 50 MG Furosemide 40 mg BIDD IV 05/02/25 18:00 05/03/25 06:06 40 MG Ceftriaxone Sodium 50 ml @ 100 mls/hr DAILY@09 IV 05/03/25 09:00 Azithromycin 250 ml @ 125 mls/hr DAILY IV 05/03/25 10:00 05/03/25 10:46 125 MLS/HR Nifedipine 30 mg DAILY PO 05/04/25 10:00 Examination: GENERAL:Normal, HEENT:Normal, NECK:Normal, LUNGS:Abnormal (Expiratory wheezing), CVS:Normal, ABDOMEN:Normal, MSK:Normal, SKIN:Normal, NEURO:Normal laboratory and microbiology Laboratory Tests 05/03/25 13:00 Test 05/03/25 13:00 Range/Units Serum Glucose 93 74-106 mg/dL Problem List/Assessment/Plan Problem List/Assessment/Plan Hypertensive urgency. Acute on chronic decompensated HFpEF, NYHA class III. NSTEMI, likely type 2 secondary to above. Aortic stenosis, mild degree. ESRD on HD. Obesity. Medical noncompliance. Plan/recommendations (Dr. Aceves): Continued all current supportive medical care. The patient underwent a transesophageal echocardiogram which revealed an EF of 60% with no gross wall motion abnormality. Mild aortic stenosis was also identified. We will recommend to continue with medical management. Continue with aggressive BP control as tolerated by patient. Strict intake and output, daily weights, and maintain fluid restriction. Nephrology consult and recommendations. Continue with close cardiac surveillance. Additional plan as per the hospital course. Plan discussed with: Patient Date of Service: May 03, 2025 Billing Provider: JESIKA ACEVES MD Cardiology Common Codes: [id number] HOSP CARE([facility] JESIKA ACEVES MD May 03, 2025 22:31
[2025-05-04] VITALS (10 sets, daily range): BP systolic 152–185; BP diastolic 69–89; PULSE 54–64; RESP 17–20; TEMP 97.4–98.4; O2SAT 92–100
[2025-05-04 06:22] LABS: Chloride 100 mmol/L (98-107)
[2025-05-04 06:23] LABS: Anion Gap 12 (5-15); Carbon Dioxide 28 mmol/L (20-31); Potassium 4.2 mmol/L (3.5-5.1); Sodium 140 mmol/L (136-145)
[2025-05-04 06:24] LABS: Calcium 8.7 mg/dL (8.7-10.4)
[2025-05-04 06:28] LABS: Glucose 87 mg/dL (74-106)
[2025-05-04 06:29] LABS: BUN/Creatinine Ratio 5.7 (10.0-20.0)
[2025-05-04 06:32] LABS: Blood Urea Nitrogen 33 mg/dL (9-23)
--- NOTE | 2025-05-04 07:00 | DVH ---
CHEST RADIOGRAPH Indication: Pleural effusions Technique: Single frontal view of the chest was obtained Comparison: XY CHEST XRAY 1 VIEW on DOS: 05/02/25 FINDINGS: Lines and Tubes: None Lungs: Central predominant pulmonary opacities are similar to prior study. Decreased bibasilar opacit ies. Pleura: No effusion. No pneumothorax. Cardiomediastinal contours: Stable Cardiovascular silhouette. Bones: No acute osseous abnormality. IMPRESSION: 1. Pulmonary edema similar to prior study. 2. Decreased bibasilar atelectasis.
--- NOTE | 2025-05-04 07:36 | DVHPN2 ---
Progress Note Date Seen: May 04, 2025 Medical Necessity Reason Pt with a Central, PICC or Fol: No Objective vital signs Vital Sign Date Time Temp Pulse Resp B/P (MAP) Pulse Ox O2 Delivery O2 Flow Rate FiO2 05/04/25 06:35 152/64 05/04/25 05:00 98.4 60 20 100 98.4 05/03/25 22:02 Nasal Cannula* 4 36 Total Intake and Output 05/03/25 05/03/25 05/04/25 15:00 23:00 07:00 Intake Total 250 ml 236 ml 600 ml Balance 250 ml 236 ml 600 ml medications Current Medications Medications Dose Ordered Sig/Miguel Route Start Time Stop Time Status Last Admin Dose Admin Aspirin 81 mg DAILY PO 05/02/25 10:00 05/03/25 10:46 81 MG Atorvastatin Calcium 20 mg HS PO 05/02/25 22:00 05/03/25 21:43 20 MG Albuterol 2.5 mg Q4HPRN PRN NEB 05/02/25 05:00 05/02/25 19:35 2.5 MG Multivit/Ca Carb/ B Cmplx/FA/Prenat 1 tab DAILY PO 05/02/25 10:00 05/03/25 10:46 1 TAB Sevelamer HCl 800 mg TIDWM PO 05/02/25 08:00 05/03/25 12:07 800 MG Metoprolol Tartrate 25 mg BID PO 05/02/25 10:00 05/03/25 21:43 25 MG Hydralazine HCl 10 mg Q6HP PRN IV 05/02/25 05:00 05/04/25 00:19 10 MG Ipratropium [place] 0.5 mg Q4HPRN PRN NEB 05/02/25 05:00 05/02/25 19:35 0.5 MG Sodium Chloride 10 ml Q8HR IV 05/02/25 06:00 05/04/25 06:35 10 ML Acetaminophen/ Hydrocodone Bitart 1 tab Q4HP PRN PO 05/02/25 05:00 05/04/25 06:36 1 TAB Ondansetron HCl 4 mg Q4HP PRN IV 05/02/25 05:00 Docusate Sodium 100 mg BIDPRN PRN PO 05/02/25 05:00 Acetaminophen 650 mg Q6HP PRN PO 05/02/25 05:00 Nitroglycerin 0.4 mg Q5MINP PRN SL 05/02/25 05:00 Morphine Sulfate 2 mg Q30M PRN IV 05/02/25 05:00 05/02/25 05:29 2 MG Sertraline HCl 50 mg DAILY PO 05/02/25 10:00 05/03/25 10:45 50 MG Furosemide 40 mg BIDD IV 05/02/25 18:00 05/04/25 06:35 40 MG Ceftriaxone Sodium 50 ml @ 100 mls/hr DAILY@09 IV 05/03/25 09:00 Azithromycin 250 ml @ 125 mls/hr DAILY IV 05/03/25 10:00 05/03/25 10:46 125 MLS/HR Nifedipine 30 mg DAILY PO 05/04/25 10:00 Examination: GENERAL:Normal, CVS:Normal laboratory and microbiology Laboratory Tests 05/04/25 05:32 05/03/25 13:00 Test 05/04/25 05:32 Range/Units Serum Glucose 87 74-106 mg/dL Problem List/Assessment/Plan Problem List/Assessment/Plan ESRD on dialysis Acute hypoxic respiratory failure Hypertensive emergency Missed Dialysis Noncompliance Obesity Anemia nifedpine to improve BP which replaced norvasc dose will be increased 60mg tomorrow to match home dose, metoprolol continued hR 60s ideal HD received yesterday will schedule next HD tomorrow renal diet Plan discussed with: Patient My Orders My Orders Orders - ECLY ORLANDO MD Procedure Category Date Status Time Nifedipine Er PHA 05/04/25 In Process (Procardia Xl 10:00 Hemodialysis Orders ORDERS 05/03/25 Transmitted 17:46 CELY ORLANDO MD May 04, 2025 07:36
--- NOTE | 2025-05-04 10:29 | DVHPN2 ---
Consult Progress Note Subjective Other Systems: Patient in normal sinus rhythm on rn cardiac cath. He denies any cardiac symptoms at time of assessment. Objective vital signs Vital Sign Date Time Temp Pulse Resp B/P (MAP) Pulse Ox O2 Delivery O2 Flow Rate FiO2 05/04/25 09:40 178/71 05/04/25 09:40 62 05/04/25 09:00 97.5 19 96 97.5 05/04/25 08:00 Nasal Cannula* 3 32 Total Intake and Output 05/03/25 05/03/25 05/04/25 15:00 23:00 07:00 Intake Total 250 ml 236 ml 600 ml Balance 250 ml 236 ml 600 ml medications Current Medications Medications Dose Ordered Sig/Miguel Route Start Time Stop Time Status Last Admin Dose Admin Aspirin 81 mg DAILY PO 05/02/25 10:00 05/04/25 09:40 81 MG Atorvastatin Calcium 20 mg HS PO 05/02/25 22:00 05/03/25 21:43 20 MG Albuterol 2.5 mg Q4HPRN PRN NEB 05/02/25 05:00 05/02/25 19:35 2.5 MG Multivit/Ca Carb/ B Cmplx/FA/Prenat 1 tab DAILY PO 05/02/25 10:00 05/04/25 09:40 1 TAB Sevelamer HCl 800 mg TIDWM PO 05/02/25 08:00 05/04/25 09:39 800 MG Metoprolol Tartrate 25 mg BID PO 05/02/25 10:00 05/04/25 09:40 25 MG Hydralazine HCl 10 mg Q6HP PRN IV 05/02/25 05:00 05/04/25 00:19 10 MG Ipratropium [place] 0.5 mg Q4HPRN PRN NEB 05/02/25 05:00 05/02/25 19:35 0.5 MG Sodium Chloride 10 ml Q8HR IV 05/02/25 06:00 05/04/25 06:35 10 ML Acetaminophen/ Hydrocodone Bitart 1 tab Q4HP PRN PO 05/02/25 05:00 05/04/25 06:36 1 TAB Ondansetron HCl 4 mg Q4HP PRN IV 05/02/25 05:00 Docusate Sodium 100 mg BIDPRN PRN PO 05/02/25 05:00 Acetaminophen 650 mg Q6HP PRN PO 05/02/25 05:00 Nitroglycerin 0.4 mg Q5MINP PRN SL 05/02/25 05:00 Morphine Sulfate 2 mg Q30M PRN IV 05/02/25 05:00 05/02/25 05:29 2 MG Sertraline HCl 50 mg DAILY PO 05/02/25 10:00 05/04/25 09:40 50 MG Furosemide 40 mg BIDD IV 05/02/25 18:00 05/04/25 06:35 40 MG Ceftriaxone Sodium 50 ml @ 100 mls/hr DAILY@09 IV 05/03/25 09:00 05/04/25 09:40 100 MLS/HR Azithromycin 250 ml @ 125 mls/hr DAILY IV 05/03/25 10:00 05/04/25 09:42 125 MLS/HR Nifedipine 30 mg DAILY PO 05/04/25 10:00 05/04/25 09:40 30 MG Examination: GENERAL:Normal, LUNGS:Normal, CVS:Normal, NEURO:Normal laboratory and microbiology Laboratory Tests 05/04/25 05:32 05/03/25 13:00 Test 05/04/25 05:32 Range/Units Serum Glucose 87 74-106 mg/dL Problem List/Assessment/Plan Problem List/Assessment/Plan Hypertensive urgency Acute on chronic decompensated HFpEF, NYHA class III NSTEMI, likely type 2 secondary to above Aortic stenosis, mild degree ESRD on HD Obesity Medical noncompliance Plan/recommendations (Dr. Ramirez): The patient underwent a transesophageal echocardiogram which revealed an EF of 60% with no gross wall motion abnormality. Mild aortic stenosis was also identified. We will recommend to continue with medical management. Continue with aggressive BP control as tolerated by patient. Up-titrate Nifedipine as tolerated by patient. Strict intake and output, daily weights, and maintain fluid restriction. Nephrology consult and recommendations. Continue with close cardiac surveillance. There is no further inpatient cardiac workup indicated at this time. Please reconsult if needed. 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 Thank you for allowing us to care for this patient. Please call with any questions or concerns. This medical document was created using an electronic medical record system with voice recognition software and computerized dictation system. Although this document has been carefully reviewed, there might still be some phonetic and typographical errors. Occasional wrong-word or ``sound-alike substitutions may have occurred due to the inherent limitations of voice recognition software. These areas are purely typographical due to imperfections of the software programs and do not reflect any compromise in the patient's medical care. Please read the chart carefully and recognize, using context, where these substitutions have occurred. Plan discussed with: Patient Date of Service: May 04, 2025 Billing Provider: DOLORES UMANA Common Visit Codes: [id number] INP/OBS CARE(HIGH) DOLORES UMANA May 04, 2025 10:29
--- NOTE | 2025-05-04 11:30 | DVHPN2 ---
Reviewed: Care Plan, H&P, Labs, Medications, Previous Orders, Radiology Changes from previous H/P or p: No Changes Eyes: No Pain, No Vision change, No Conjunctivae inflammation, No Eyelid inflammation, No Other, No Redness ENT: No Ear pain, No Ear discharge, No Nose pain, No Nose discharge, No Nose congestion, No Mouth pain, No Mouth swelling, No Throat pain, No Throat swelling, No Other Cardiovascular: No Chest Pain, No Palpitations, No Orthopnea, No Paroxysmal Noc. 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); No neck pain, No shoulder pain, No arm pain, No back pain, No hand pain, No leg pain, No foot pain Skin: No Rash, No Lesions, No Jaundice, No Bruising, No Other Objective Vitals Vital Signs Date Time Temp Pulse Resp B/P (MAP) Pulse Ox O2 Delivery O2 Flow Rate FiO2 05/04/25 09:40 178/71 05/04/25 09:40 62 05/04/25 09:00 97.5 19 96 97.5 05/04/25 08:00 Nasal Cannula* 3 32 Intake/Output Intake and Output 05/04/25 07:00 Intake Total 1086 ml Balance 1086 ml Intake Oral 836 ml IV Total 250 ml # Voids 6 # Bowel Movements 2 Medications Current Medications Medications Dose Ordered Sig/Miguel Route Start Time Stop Time Status Last Admin Dose Admin Aspirin 81 mg DAILY PO 05/02/25 10:00 05/04/25 09:40 81 MG Atorvastatin Calcium 20 mg HS PO 05/02/25 22:00 05/03/25 21:43 20 MG Albuterol 2.5 mg Q4HPRN PRN NEB 05/02/25 05:00 05/02/25 19:35 2.5 MG Multivit/Ca Carb/ B Cmplx/FA/Prenat 1 tab DAILY PO 05/02/25 10:00 05/04/25 09:40 1 TAB Sevelamer HCl 800 mg TIDWM PO 05/02/25 08:00 05/04/25 11:01 800 MG Metoprolol Tartrate 25 mg BID PO 05/02/25 10:00 05/04/25 09:40 25 MG Hydralazine HCl 10 mg Q6HP PRN IV 05/02/25 05:00 05/04/25 00:19 10 MG Ipratropium [place] 0.5 mg Q4HPRN PRN NEB 05/02/25 05:00 05/02/25 19:35 0.5 MG Sodium Chloride 10 ml Q8HR IV 05/02/25 06:00 05/04/25 06:35 10 ML Acetaminophen/ Hydrocodone Bitart 1 tab Q4HP PRN PO 05/02/25 05:00 05/04/25 06:36 1 TAB Ondansetron HCl 4 mg Q4HP PRN IV 05/02/25 05:00 Docusate Sodium 100 mg BIDPRN PRN PO 05/02/25 05:00 Acetaminophen 650 mg Q6HP PRN PO 05/02/25 05:00 Nitroglycerin 0.4 mg Q5MINP PRN SL 05/02/25 05:00 Morphine Sulfate 2 mg Q30M PRN IV 05/02/25 05:00 05/02/25 05:29 2 MG Sertraline HCl 50 mg DAILY PO 05/02/25 10:00 05/04/25 09:40 50 MG Furosemide 40 mg BIDD IV 05/02/25 18:00 05/04/25 06:35 40 MG Ceftriaxone Sodium 50 ml @ 100 mls/hr DAILY@09 IV 05/03/25 09:00 05/04/25 09:40 100 MLS/HR Azithromycin 250 ml @ 125 mls/hr DAILY IV 05/03/25 10:00 05/04/25 09:42 125 MLS/HR Nifedipine 30 mg DAILY PO 05/04/25 10:00 05/04/25 09:40 30 MG Laboratory Results Laboratory Tests 05/03/25 13:00 05/04/25 05:32 Chemistry Test 05/03/25 13:00 05/04/25 05:32 Albumin 3.7 g/dL (3.2-4.8) Calcium Level 6.8 mg/dL (8.7-10.4) L 8.7 mg/dL (8.7-10.4) Total Protein 6.2 g/dL (5.7-8.2) Phosphorus Level 6.4 mg/dL (2.4-5.1) H LFT Test 05/03/25 13:00 Alanine Aminotransferase (ALT) 10 U/L (7-40) Alkaline Phosphatase 65 U/L (46-116) Aspartate Amino Transferase (AST) 21 U/L (13-40) Total Bilirubin 0.3 mg/dL (0.2-1.0) Labs and/or images reviewed: Labs reviewed by me, Image(s) reviewed by me Assessment/Plan Assessment/Plan Acute hypoxic respiratory failure: Oxygen by nasal cannula Acute community-acquired bilateral pneumonia Gram-positive versus Gram-negative: Rocephin azithromycin, albuterol Atrovent Solu-Medrol ESRD on hemodialysis consult for Dr. Farley Hypertensive urgency : Nifedipine 30 mg p.o. daily Pulmonary edema Non ST-elevation [place] consult for Dr. Milian Acute CHF exacerbation: Lasix consult for Dr. Ramirez, echo 60 % ejection, no further cardiac workup Anemia of chronic disease Generalized weakness Patient lives with his sister Patient is hospice revoked Time Spent 55 minute Patient is full code Plan discussed with: Patient My Orders Orders - CHUNG GOODWIN MD Procedure Category Date Status Time Cardiac DIET 05/03/25 Transmitted Diet-2gna,Lofat,Lochol Dinner Date of Service: May 04, 2025 Billing Provider: CHUNG GOODWIN MD Common Visit Codes: [id number] INP/OBS CARE(HIGH) CHUNG GOODWIN MD May 04, 2025 11:30
--- NOTE | 2025-05-04 18:14 | DVHPN2 ---
Progress Note - Dictate Date Seen: May 04, 2025 Medical Necessity Reason Pt with a Central, PICC or Fol: No vital signs Vital Sign Date Time Temp Pulse Resp B/P (MAP) Pulse Ox O2 Delivery O2 Flow Rate FiO2 05/04/25 17:00 97.8 59 17 168/74 (105) 97 97.8 05/04/25 08:00 Nasal Cannula* 3 32 Total Intake and Output 05/03/25 05/03/25 05/04/25 15:00 23:00 07:00 Intake Total 250 ml 236 ml 600 ml Balance 250 ml 236 ml 600 ml medications Current Medications Medications Dose Ordered Sig/Miguel Route Start Time Stop Time Status Last Admin Dose Admin Aspirin 81 mg DAILY PO 05/02/25 10:00 05/04/25 09:40 81 MG Atorvastatin Calcium 20 mg HS PO 05/02/25 22:00 05/03/25 21:43 20 MG Albuterol 2.5 mg Q4HPRN PRN NEB 05/02/25 05:00 05/02/25 19:35 2.5 MG Multivit/Ca Carb/ B Cmplx/FA/Prenat 1 tab DAILY PO 05/02/25 10:00 05/04/25 09:40 1 TAB Sevelamer HCl 800 mg TIDWM PO 05/02/25 08:00 05/04/25 16:46 800 MG Metoprolol Tartrate 25 mg BID PO 05/02/25 10:00 05/04/25 09:40 25 MG Hydralazine HCl 10 mg Q6HP PRN IV 05/02/25 05:00 05/04/25 13:06 10 MG Ipratropium [place] 0.5 mg Q4HPRN PRN NEB 05/02/25 05:00 05/02/25 19:35 0.5 MG Sodium Chloride 10 ml Q8HR IV 05/02/25 06:00 05/04/25 13:06 10 ML Acetaminophen/ Hydrocodone Bitart 1 tab Q4HP PRN PO 05/02/25 05:00 05/04/25 16:45 1 TAB Ondansetron HCl 4 mg Q4HP PRN IV 05/02/25 05:00 Docusate Sodium 100 mg BIDPRN PRN PO 05/02/25 05:00 Acetaminophen 650 mg Q6HP PRN PO 05/02/25 05:00 Nitroglycerin 0.4 mg Q5MINP PRN SL 05/02/25 05:00 Morphine Sulfate 2 mg Q30M PRN IV 05/02/25 05:00 05/02/25 05:29 2 MG Sertraline HCl 50 mg DAILY PO 05/02/25 10:00 05/04/25 09:40 50 MG Furosemide 40 mg BIDD IV 05/02/25 18:00 05/04/25 16:47 40 MG Ceftriaxone Sodium 50 ml @ 100 mls/hr DAILY@09 IV 05/03/25 09:00 05/04/25 09:40 100 MLS/HR Azithromycin 250 ml @ 125 mls/hr DAILY IV 05/03/25 10:00 05/04/25 09:42 125 MLS/HR Nifedipine 30 mg DAILY PO 05/04/25 10:00 05/04/25 09:40 30 MG laboratory and microbiology Laboratory Tests 05/04/25 05:32 05/03/25 13:00 Test 05/04/25 05:32 Range/Units Serum Glucose 87 74-106 mg/dL Assessment/Plan Impression Acute hypoxemic respiratory failure Bilateral pleural effusions ESRD on HD CHF Patient seen and examined Events Low oxygen requirements On 2 liters nasal cannula Continue to improve No distress Labs and imaging reviewed Management Supplemental oxygen Titrate to maintain sats 90% or above Incentive spirometry Bronchodilators Monitor renal function HD as per nephrology Management deferred Monitor electrolytes Supplement as needed No indication for thoracentesis DVT prophylaxis Plan discussed with: Patient ALAINA JENKINS MD May 04, 2025 18:14
--- NOTE | 2025-05-04 22:15 | DVHPN2 ---
Consult Progress Note Date Seen: May 04, 2025 Subjective Other Systems: Patient was seen and evaluated in follow up. Patient on 3 LPM NC. Patient in normal sinus rhythm on athletic monitor. He denies any cardiac symptoms at time of assessment. Telemetry reviewed. Objective vital signs Vital Sign Date Time Temp Pulse Resp B/P (MAP) Pulse Ox O2 Delivery O2 Flow Rate FiO2 05/04/25 21:52 60 187/81 05/04/25 18:27 95 Nasal Cannula* 3 32 05/04/25 17:00 97.8 17 97.8 Total Intake and Output 05/03/25 05/03/25 05/04/25 15:00 23:00 07:00 Intake Total 250 ml 236 ml 600 ml Balance 250 ml 236 ml 600 ml medications Current Medications Medications Dose Ordered Sig/Miguel Route Start Time Stop Time Status Last Admin Dose Admin Aspirin 81 mg DAILY PO 05/02/25 10:00 05/04/25 09:40 81 MG Atorvastatin Calcium 20 mg HS PO 05/02/25 22:00 05/04/25 21:51 20 MG Albuterol 2.5 mg Q4HPRN PRN NEB 05/02/25 05:00 05/02/25 19:35 2.5 MG Multivit/Ca Carb/ B Cmplx/FA/Prenat 1 tab DAILY PO 05/02/25 10:00 05/04/25 09:40 1 TAB Sevelamer HCl 800 mg TIDWM PO 05/02/25 08:00 05/04/25 16:46 800 MG Metoprolol Tartrate 25 mg BID PO 05/02/25 10:00 05/04/25 21:52 25 MG Hydralazine HCl 10 mg Q6HP PRN IV 05/02/25 05:00 05/04/25 13:06 10 MG Ipratropium [place] 0.5 mg Q4HPRN PRN NEB 05/02/25 05:00 05/02/25 19:35 0.5 MG Sodium Chloride 10 ml Q8HR IV 05/02/25 06:00 05/04/25 21:51 10 ML Acetaminophen/ Hydrocodone Bitart 1 tab Q4HP PRN PO 05/02/25 05:00 05/04/25 21:05 1 TAB Ondansetron HCl 4 mg Q4HP PRN IV 05/02/25 05:00 Docusate Sodium 100 mg BIDPRN PRN PO 05/02/25 05:00 Acetaminophen 650 mg Q6HP PRN PO 05/02/25 05:00 Nitroglycerin 0.4 mg Q5MINP PRN SL 05/02/25 05:00 Morphine Sulfate 2 mg Q30M PRN IV 05/02/25 05:00 05/02/25 05:29 2 MG Sertraline HCl 50 mg DAILY PO 05/02/25 10:00 05/04/25 09:40 50 MG Furosemide 40 mg BIDD IV 05/02/25 18:00 05/04/25 16:47 40 MG Ceftriaxone Sodium 50 ml @ 100 mls/hr DAILY@09 IV 05/03/25 09:00 05/04/25 09:40 100 MLS/HR Azithromycin 250 ml @ 125 mls/hr DAILY IV 05/03/25 10:00 05/04/25 09:42 125 MLS/HR Nifedipine 30 mg DAILY PO 05/04/25 10:00 05/04/25 09:40 30 MG Examination: GENERAL:Normal, HEENT:Normal, NECK:Normal, LUNGS:Normal, CVS:Normal, ABDOMEN:Normal, MSK:Normal, SKIN:Normal, NEURO:Normal, :Normal laboratory and microbiology Laboratory Tests 05/04/25 05:32 05/03/25 13:00 Test 05/04/25 05:32 Range/Units Serum Glucose 87 74-106 mg/dL Problem List/Assessment/Plan Problem List/Assessment/Plan Hypertensive urgency. Acute on chronic decompensated HFpEF, NYHA class III. NSTEMI, likely type 2 secondary to above. Aortic stenosis, mild degree. ESRD on HD. Obesity. Medical noncompliance. Plan/recommendations (Dr. Aceves): Continued all current supportive medical care. The patient underwent a transesophageal echocardiogram which revealed an EF of 60% with no gross wall motion abnormality. Mild aortic stenosis was also identified. We will recommend to continue with medical management. Continue with aggressive BP control as tolerated by patient. Up-titrate Nifedipine as tolerated by patient. Strict intake and output, daily weights, and maintain fluid restriction. Nephrology consult and recommendations. Continue with close cardiac surveillance. There is no further inpatient cardiac workup indicated at this time. Please reconsult if needed. Patient states he will follow up with his primary first aid attendant in the outpatient setting. Additional plan as per the hospital course. Plan discussed with: Patient Date of Service: May 04, 2025 Billing Provider: JESIKA ACEVES MD Cardiology Common Codes: [id number] HOSP CARE(High JESIKA ACEVES MD May 04, 2025 22:15
[2025-05-05] VITALS (11 sets, daily range): BP systolic 160–190; BP diastolic 66–91; PULSE 53–69; RESP 16–19; TEMP 97.5–98.8; O2SAT 92–100
[2025-05-05 06:20] LABS: Anion Gap 15 (5-15); Carbon Dioxide 26 mmol/L (20-31); Chloride 99 mmol/L (98-107); Potassium 3.9 mmol/L (3.5-5.1); Sodium 140 mmol/L (136-145)
[2025-05-05 06:26] LABS: Calcium 8.5 mg/dL (8.7-10.4)
[2025-05-05 06:27] LABS: BUN/Creatinine Ratio 6.1 (10.0-20.0); Glucose 81 mg/dL (74-106)
[2025-05-05 06:29] LABS: Blood Urea Nitrogen 44 mg/dL (9-23)
--- NOTE | 2025-05-05 11:56 | DVHPN2 ---
Reviewed: Care Plan, H&P, Labs, Medications, Previous Orders, Radiology Changes from previous H/P or p: No Changes Eyes: No Pain, No Vision change, No Conjunctivae inflammation, No Eyelid inflammation, No Other, No Redness ENT: No Ear pain, No Ear discharge, No Nose pain, No Nose discharge, No Nose congestion, No Mouth pain, No Mouth swelling, No Throat pain, No Throat swelling, No Other Cardiovascular: No Chest Pain, No Palpitations, No Orthopnea, No Paroxysmal Noc. 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); No neck pain, No shoulder pain, No arm pain, No back pain, No hand pain, No leg pain, No foot pain Skin: No Rash, No Lesions, No Jaundice, No Bruising, No Other Objective Vitals Vital Signs Date Time Temp Pulse Resp B/P (MAP) Pulse Ox O2 Delivery O2 Flow Rate FiO2 05/05/25 09:58 56 19 173/73 93 3.0 05/05/25 09:06 Nasal Cannula* 32 05/05/25 08:48 98.0 98.0 Intake/Output Intake and Output 05/05/25 07:00 Intake Total 750 ml Output Total 200 ml Balance 550 ml Intake Oral 450 ml IV Total 300 ml Output Urine Total 200 ml # Voids 1 # Bowel Movements 1 Medications Current Medications Medications Dose Ordered Sig/Miguel Route Start Time Stop Time Status Last Admin Dose Admin Aspirin 81 mg DAILY PO 05/02/25 10:00 05/05/25 08:29 81 MG Atorvastatin Calcium 20 mg HS PO 05/02/25 22:00 05/04/25 21:51 20 MG Albuterol 2.5 mg Q4HPRN PRN NEB 05/02/25 05:00 05/02/25 19:35 2.5 MG Multivit/Ca Carb/ B Cmplx/FA/Prenat 1 tab DAILY PO 05/02/25 10:00 05/05/25 08:28 1 TAB Sevelamer HCl 800 mg TIDWM PO 05/02/25 08:00 05/05/25 08:16 800 MG Metoprolol Tartrate 25 mg BID PO 05/02/25 10:00 05/05/25 08:29 25 MG Hydralazine HCl 10 mg Q6HP PRN IV 05/02/25 05:00 05/05/25 01:04 10 MG Ipratropium [place] 0.5 mg Q4HPRN PRN NEB 05/02/25 05:00 05/02/25 19:35 0.5 MG Sodium Chloride 10 ml Q8HR IV 05/02/25 06:00 05/05/25 06:11 10 ML Acetaminophen/ Hydrocodone Bitart 1 tab Q4HP PRN PO 05/02/25 05:00 05/05/25 08:35 1 TAB Ondansetron HCl 4 mg Q4HP PRN IV 05/02/25 05:00 Docusate Sodium 100 mg BIDPRN PRN PO 05/02/25 05:00 Acetaminophen 650 mg Q6HP PRN PO 05/02/25 05:00 Nitroglycerin 0.4 mg Q5MINP PRN SL 05/02/25 05:00 Morphine Sulfate 2 mg Q30M PRN IV 05/02/25 05:00 05/02/25 05:29 2 MG Sertraline HCl 50 mg DAILY PO 05/02/25 10:00 05/05/25 08:30 50 MG Furosemide 40 mg BIDD IV 05/02/25 18:00 05/05/25 06:11 40 MG Ceftriaxone Sodium 50 ml @ 100 mls/hr DAILY@09 IV 05/03/25 09:00 05/05/25 08:25 100 MLS/HR Azithromycin 250 ml @ 125 mls/hr DAILY IV 05/03/25 10:00 05/05/25 10:15 125 MLS/HR Nifedipine 30 mg DAILY PO 05/04/25 10:00 05/05/25 08:29 30 MG Laboratory Results Laboratory Tests 05/03/25 13:00 05/05/25 05:38 Chemistry Test 05/05/25 05:38 Calcium Level 8.5 mg/dL (8.7-10.4) L Labs and/or images reviewed: Labs reviewed by me, Image(s) reviewed by me Assessment/Plan Assessment/Plan Acute hypoxic respiratory failure: Oxygen by nasal cannula Acute community-acquired bilateral pneumonia Gram-positive versus Gram-negative: Rocephin azithromycin, albuterol Atrovent Solu-Medrol ESRD on hemodialysis consult for Dr. Farley Hypertensive urgency : Nifedipine 30 mg p.o. daily Pulmonary edema Non ST-elevation [place] consult for Dr. Milian Acute CHF exacerbation: Lasix consult for Dr. Ramirez, echo 60 % ejection, no further cardiac workup Anemia of chronic disease Generalized weakness Patient lives with his sister Patient is hospice revoked Time Spent 58 minute Patient is full code Plan discussed with: Patient Date of Service: May 05, 2025 Billing Provider: CHUNG GOODWIN MD Common Visit Codes: [id number] INP/OBS CARE(HIGH) CHUNG GOODWIN MD May 05, 2025 11:56
--- NOTE | 2025-05-05 13:24 | DVHDS2 ---
Discharge Summary Date of Admission May 02, 2025 at 04:51 Date of Discharge: May 05, 2025 Admitting Diagnosis Shortness of breath Wounds: None Labs/Diagnostic Data: Laboratory Results Test 05/05/25 05:38 05/04/25 05:32 05/03/25 13:00 05/02/25 11:25 Sodium Level 140 mmol/L (136-145) Potassium Level 3.9 mmol/L (3.5-5.1) Chloride Level 99 mmol/L (98-107) Carbon Dioxide Level 26 mmol/L (20-31) Anion Gap 15 (5-15) Blood Urea Nitrogen 44 mg/dL (9-23) Creatinine 7.21 mg/dL (0.700-1.30) Glomerular Filtration Rate Calc 8 mL/min (>90) BUN/Creatinine Ratio 6.1 (10.0-20.0) Serum Glucose 81 mg/dL (74-106) Calcium Level 8.5 mg/dL (8.7-10.4) Phosphorus Level 6.4 mg/dL (2.4-5.1) White Blood Count 6.3 10^3/uL (4.4-10.8) Red Blood Count 3.49 10^6/uL (4.5-5.90) Hemoglobin 9.5 g/dL (13.5-17.5) Hematocrit 30.0 % (41.0-53.0) Mean Corpuscular Volume 86.0 fL (80.0-100.0) Mean Corpuscular Hemoglobin 27.1 pg (28.0-32.0) Mean Corpuscular Hemoglobin Concent 31.6 g/dL (32.0-36.0) Red Cell Distribution Width 20.1 % (11.8-14.3) Platelet Count 236 10^3/uL (140-450) Mean Platelet Volume 8.2 fL (6.9-10.8) Neutrophils (%) (Auto) 77.6 % (37.0-80.0) Lymphocytes (%) (Auto) 8.9 % (10.0-50.0) Monocytes (%) (Auto) 10.1 % (0.0-12.0) Eosinophils (%) (Auto) 2.3 % (0.0-7.0) Basophils (%) (Auto) 1.1 % (0.0-2.0) Neutrophils # (Auto) 4.9 10 ^3/uL (1.6-8.6) Lymphocytes # (Auto) 0.6 10 ^3/uL (0.4-5.4) Monocytes # (Auto) 0.6 10 ^3/uL (0-1.3) Eosinophils # (Auto) 0.1 10 ^3/uL (0-0.8) Basophils # (Auto) 0.1 10 ^3/uL (0-0.2) Nucleated Red Blood Cells 0.1 % Total Bilirubin 0.3 mg/dL (0.2-1.0) Aspartate Amino Transferase (AST) 21 U/L (13-40) Alanine Aminotransferase (ALT) 10 U/L (7-40) Alkaline Phosphatase 65 U/L (46-116) Total Protein 6.2 g/dL (5.7-8.2) Albumin 3.7 g/dL (3.2-4.8) Hepatitis B Surface Antigen Negative (Negative) Test 05/02/25 05:22 05/02/25 04:26 05/02/25 01:30 05/02/25 01:28 B-Type Natriuretic Peptide 3246.98 pg/mL (0-100) Troponin I High Sensitivity 87 ng/L (</=54) Blood Gas Specimen Type Arterial Blood Gas Sample Site Right brachial Blood Gas Patient Temperature 37.0 Arterial Blood Date Drawn [id number] Arterial Blood pH 7.365 (7.350-7.450) Arterial Blood Partial Pressure CO2 27.3 mmHg (35.0-48.0) Arterial Blood Partial Pressure O2 84.1 mmHg (83.0-108.0) Arterial Blood HCO3 15.3 mmol/L (21.0-28.0) Arterial Blood Oxygen Saturation 94.8 % (94.0-98.0) Arterial Blood Base Excess -8.8 mmol/L (-2.0-3.0) Arterial Blood Oxyhemoglobin 93.4 % (94.0-98.0) Arterial Blood Carboxyhemoglobin 1.4 % (0.5-1.5) Arterial Blood Methemoglobin 0.1 % (0.0-1.5) Daniel Test N/a Blood Gas Total Hemoglobin 10.50 g/dL (13.5-17.5) Blood Gas Liter Flow 4.00 Blood Gas Modality Nasal cannula FiO2 % 36.0 Influenza Type A Antigen Negative (Negative) Influenza Type B Antigen Negative (Negative) SARS-CoV-2 Antigen (Rapid) Negative (NEGATIVE) Test 05/02/25 01:05 Lactic Acid Level 1.1 mmol/L (0.4-2.0) Other Laboratory Tests 05/05/25 05:38 05/03/25 13:00 Brief Hx & Hospital Course: 70-year-old male with a history of hypotension CHF anemia of chronic disease ESRD on hemodialysis came in for shortness of breaths and generalized weakness found to have community-acquired pneumonia treated with Rocephin azithromycin albuterol Atrovent Solu-Medrol received hemodialysis by Dr. Miguelito porras hypertensive urgency at [facility] evaluation was done by Dr. Milian found to have non ST-elevation PA. CHF exacerbation treated with a Lasix echo 60 percent ejection fraction no further cardiac workup per Dr. Ramirez discharged to long term facility to receive IV antibiotics for two weeks for pneumonia. Hospice revoked . patient does not want to go back on hospice General Condition poor but stable at the time of discharge Consults/Reason for consult Nephrology Operations or Procedures Hemodialysis Condition at Discharge: Fair Final Diagnosis/Problems List Acute hypoxic respiratory failure: Oxygen by nasal cannula Acute community-acquired bilateral pneumonia Gram-positive versus Gram-negative: Rocephin azithromycin, albuterol Atrovent Solu-Medrol ESRD on hemodialysis consult for Dr. Farley Hypertensive urgency : Nifedipine 30 mg p.o. daily Pulmonary edema Non ST-elevation [place] consult for Dr. Milian Acute CHF exacerbation: Lasix consult for Dr. Ramirez, echo 60 % ejection, no further cardiac workup Anemia of chronic disease Generalized weakness [facility] Discharge Instruct/Medications Diet: Renal Activity: Light activity Follow Up/Referral: [facility] up with [facility] Hemod[facility] Dr. Miguelito porras 3 times a week Medications: see list Scheduled Atorvastatin Calcium (Atorvastatin Calcium), 40 MG PO DAILY Clonidine Hydrochloride (Clonidine Hydrochloride), 0.3 MG PO TID, (Reported) Hydralazine Hcl (Hydralazine Hcl), 1 TAB PO DAILY, (Reported) Nifedipine (Nifedipine Er), 1 TAB PO DAILY, (Reported) Sertraline HCl (Sertraline HCl), 50 MG PO DAILY, (Reported) Sevelamer Carbonate (Renvela), 2 TAB PO TIDWM, (Reported) Tamsulosin Hcl (Tamsulosin Hcl), 1 CAP PO DAILY, (Reported) Scheduled PRN Alprazolam (Alprazolam), 1 TAB PO DAILYPRN PRN for ANXIETY, (Reported) 35 (Time taken for discharge summary 35 minutes) Discharge Statement: "Patient was advised to return to the ER or call 911 if any headaches, dizziness, shortness of breath, chest pain, abdominal pain, bleeding, fevers, or worsening of medical condition. Patient was counseled about treatment plan, medications, possible side effects, patientverbalized understanding. All questions were answered to the best of my ability. This discharge took greater then 30 minutes in planning, reviewing documentation, counseling the patient, and discussing with other team members." ASSESSMENT ASSESSMENT Hospital Course Improved Assessment Acute hypoxic respiratory failure: Oxygen by nasal cannula Acute community-acquired bilateral pneumonia Gram-positive versus Gram-negative: Rocephin azithromycin, albuterol Atrovent Solu-Medrol ESRD on hemodialysis consult for Dr. Farley Hypertensive urgency : Nifedipine 30 mg p.o. daily Pulmonary edema Non ST-elevation [place] consult for Dr. Milian Acute CHF exacerbation: Lasix consult for Dr. Ramirez, echo 60 % ejection, no further cardiac workup Anemia of chronic disease Generalized weakness Date of Service: May 05, 2025 Billing Provider: CHUNG GOODWIN MD Common Visit Codes: [id number] DISCH DAY >30min CHUNG GOODWIN MD May 05, 2025 13:24
--- NOTE | 2025-05-05 13:42 | DVHPN2 ---
Progress Note Date Seen: May 05, 2025 Medical Necessity Reason Pt with a Central, PICC or Fol: No Subjective Patient reports: Feels better Objective vital signs Vital Sign Date Time Temp Pulse Resp B/P (MAP) Pulse Ox O2 Delivery O2 Flow Rate FiO2 05/05/25 09:58 56 19 173/73 93 3.0 05/05/25 09:06 Nasal Cannula* 32 05/05/25 08:48 98.0 98.0 Total Intake and Output 05/04/25 05/04/25 05/05/25 15:00 23:00 07:00 Intake Total 300 ml 250 ml 200 ml Output Total 200 ml Balance 300 ml 50 ml 200 ml medications Current Medications Medications Dose Ordered Sig/Miguel Route Start Time Stop Time Status Last Admin Dose Admin Aspirin 81 mg DAILY PO 05/02/25 10:00 05/05/25 08:29 81 MG Atorvastatin Calcium 20 mg HS PO 05/02/25 22:00 05/04/25 21:51 20 MG Albuterol 2.5 mg Q4HPRN PRN NEB 05/02/25 05:00 05/02/25 19:35 2.5 MG Multivit/Ca Carb/ B Cmplx/FA/Prenat 1 tab DAILY PO 05/02/25 10:00 05/05/25 08:28 1 TAB Sevelamer HCl 800 mg TIDWM PO 05/02/25 08:00 05/05/25 08:16 800 MG Metoprolol Tartrate 25 mg BID PO 05/02/25 10:00 05/05/25 08:29 25 MG Hydralazine HCl 10 mg Q6HP PRN IV 05/02/25 05:00 05/05/25 01:04 10 MG Ipratropium [place] 0.5 mg Q4HPRN PRN NEB 05/02/25 05:00 05/02/25 19:35 0.5 MG Sodium Chloride 10 ml Q8HR IV 05/02/25 06:00 05/05/25 06:11 10 ML Acetaminophen/ Hydrocodone Bitart 1 tab Q4HP PRN PO 05/02/25 05:00 05/05/25 08:35 1 TAB Ondansetron HCl 4 mg Q4HP PRN IV 05/02/25 05:00 Docusate Sodium 100 mg BIDPRN PRN PO 05/02/25 05:00 Acetaminophen 650 mg Q6HP PRN PO 05/02/25 05:00 Nitroglycerin 0.4 mg Q5MINP PRN SL 05/02/25 05:00 Morphine Sulfate 2 mg Q30M PRN IV 05/02/25 05:00 05/02/25 05:29 2 MG Sertraline HCl 50 mg DAILY PO 05/02/25 10:00 05/05/25 08:30 50 MG Furosemide 40 mg BIDD IV 05/02/25 18:00 05/05/25 06:11 40 MG Ceftriaxone Sodium 50 ml @ 100 mls/hr DAILY@09 IV 05/03/25 09:00 05/05/25 08:25 100 MLS/HR Azithromycin 250 ml @ 125 mls/hr DAILY IV 05/03/25 10:00 05/05/25 10:15 125 MLS/HR Nifedipine 30 mg DAILY PO 05/04/25 10:00 05/05/25 08:29 30 MG Examination: GENERAL:Normal, CVS:Normal laboratory and microbiology Laboratory Tests 05/05/25 05:38 05/03/25 13:00 Test 05/05/25 05:38 Range/Units Serum Glucose 81 74-106 mg/dL Problem List/Assessment/Plan Problem List/Assessment/Plan ESRD on dialysis Acute hypoxic respiratory failure Hypertensive emergency Missed Dialysis Noncompliance Obesity Anemia resume home dose nifedpine HD on going now renal diet Plan discussed with: Patient Total Time (mins): 25 CELY ORLANDO MD May 05, 2025 13:42
--- NOTE | 2025-05-05 14:20 | ECG ---
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
--- NOTE | 2025-05-05 21:16 | DVHPN2 ---
Progress Note - Dictate Date Seen: May 05, 2025 Medical Necessity Reason Pt with a Central, PICC or Fol: No vital signs Vital Sign Date Time Temp Pulse Resp B/P (MAP) Pulse Ox O2 Delivery O2 Flow Rate FiO2 05/05/25 19:25 94 Nasal Cannula* 3 32 05/05/25 17:20 161/36 05/05/25 16:40 98.8 58 19 98.8 Total Intake and Output 05/04/25 05/04/25 05/05/25 15:00 23:00 07:00 Intake Total 300 ml 250 ml 200 ml Output Total 200 ml Balance 300 ml 50 ml 200 ml medications Current Medications Medications Dose Ordered Sig/Miguel Route Start Time Stop Time Status Last Admin Dose Admin Aspirin 81 mg DAILY PO 05/02/25 10:00 05/05/25 08:29 81 MG Atorvastatin Calcium 20 mg HS PO 05/02/25 22:00 05/04/25 21:51 20 MG Albuterol 2.5 mg Q4HPRN PRN NEB 05/02/25 05:00 05/02/25 19:35 2.5 MG Multivit/Ca Carb/ B Cmplx/FA/Prenat 1 tab DAILY PO 05/02/25 10:00 05/05/25 08:28 1 TAB Sevelamer HCl 800 mg TIDWM PO 05/02/25 08:00 05/05/25 17:19 800 MG Metoprolol Tartrate 25 mg BID PO 05/02/25 10:00 05/05/25 08:29 25 MG Hydralazine HCl 10 mg Q6HP PRN IV 05/02/25 05:00 05/05/25 16:39 10 MG Ipratropium [place] 0.5 mg Q4HPRN PRN NEB 05/02/25 05:00 05/02/25 19:35 0.5 MG Sodium Chloride 10 ml Q8HR IV 05/02/25 06:00 05/05/25 13:38 10 ML Acetaminophen/ Hydrocodone Bitart 1 tab Q4HP PRN PO 05/02/25 05:00 05/05/25 18:09 1 TAB Ondansetron HCl 4 mg Q4HP PRN IV 05/02/25 05:00 Docusate Sodium 100 mg BIDPRN PRN PO 05/02/25 05:00 Acetaminophen 650 mg Q6HP PRN PO 05/02/25 05:00 Nitroglycerin 0.4 mg Q5MINP PRN SL 05/02/25 05:00 Morphine Sulfate 2 mg Q30M PRN IV 05/02/25 05:00 05/02/25 05:29 2 MG Sertraline HCl 50 mg DAILY PO 05/02/25 10:00 05/05/25 08:30 50 MG Furosemide 40 mg BIDD IV 05/02/25 18:00 05/05/25 17:20 40 MG Ceftriaxone Sodium 50 ml @ 100 mls/hr DAILY@09 IV 05/03/25 09:00 05/05/25 08:25 100 MLS/HR Azithromycin 250 ml @ 125 mls/hr DAILY IV 05/03/25 10:00 05/05/25 10:15 125 MLS/HR Nifedipine 30 mg DAILY PO 05/04/25 10:00 05/05/25 08:29 30 MG laboratory and microbiology Laboratory Tests 05/05/25 05:38 05/03/25 13:00 Test 05/05/25 05:38 Range/Units Serum Glucose 81 74-106 mg/dL Assessment/Plan Impression Acute hypoxemic respiratory failure Bilateral pleural effusions ESRD on HD CHF Patient seen and examined Events Low oxygen requirements On 2 liters nasal cannula Continue to improve No distress Labs and imaging reviewed Management Supplemental oxygen Titrate to maintain sats 90% or above Incentive spirometry Bronchodilators Monitor renal function HD as per nephrology Management deferred Monitor electrolytes Supplement as needed No thoracentesis DVT prophylaxis Plan discussed with: Patient ALAINA JENKINS MD May 05, 2025 21:16
[2025-05-06] VITALS (8 sets, daily range): BP systolic 168–200; BP diastolic 53–92; PULSE 53–68; RESP 12–67; TEMP 97.5–98.1; O2SAT 94–100
--- NOTE | 2025-05-06 13:01 | DVHPN2 ---
Reviewed: Care Plan, H&P, Labs, Medications, Previous Orders, Radiology Changes from previous H/P or p: No Changes Eyes: No Pain, No Vision change, No Conjunctivae inflammation, No Eyelid inflammation, No Other, No Redness ENT: No Ear pain, No Ear discharge, No Nose pain, No Nose discharge, No Nose congestion, No Mouth pain, No Mouth swelling, No Throat pain, No Throat swelling, No Other Cardiovascular: No Chest Pain, No Palpitations, No Orthopnea, No Paroxysmal Noc. Dyspnea, No Edema, No Lt Headedness, No Other Respiratory: Shortness of breath, Other Gastrointestinal: No Nausea, No Vomiting, No Abdominal Pain, No Diarrhea, No Constipation, No Melena, No Hematochezia, No Other Genitourinary: Other Musculoskeletal: other Skin: No Rash, No Lesions, No Jaundice, No Bruising, No Other Objective Vitals Vital Signs Date Time Temp Pulse Resp B/P (MAP) Pulse Ox O2 Delivery O2 Flow Rate FiO2 05/06/25 12:42 53 168/69 (102) 05/06/25 12:30 97.5 18 98 97.5 05/06/25 08:00 Nasal Cannula* 3 32 Intake/Output Intake and Output 05/06/25 07:00 Intake Total 1840 ml Output Total 0 ml Balance 1840 ml Intake Oral 1540 ml IV Total 300 ml Output Urine Total 0 ml # Voids 4 # Bowel Movements 2 Medications Current Medications Medications Dose Ordered Sig/Miguel Route Start Time Stop Time Status Last Admin Dose Admin Aspirin 81 mg DAILY PO 05/02/25 10:00 05/06/25 09:05 81 MG Atorvastatin Calcium 20 mg HS PO 05/02/25 22:00 05/06/25 00:13 20 MG Albuterol 2.5 mg Q4HPRN PRN NEB 05/02/25 05:00 05/02/25 19:35 2.5 MG Multivit/Ca Carb/ B Cmplx/FA/Prenat 1 tab DAILY PO 05/02/25 10:00 05/06/25 09:04 1 TAB Sevelamer HCl 800 mg TIDWM PO 05/02/25 08:00 05/06/25 12:41 800 MG Metoprolol Tartrate 25 mg BID PO 05/02/25 10:00 05/06/25 09:05 25 MG Hydralazine HCl 10 mg Q6HP PRN IV 05/02/25 05:00 05/06/25 11:41 10 MG Ipratropium [place] 0.5 mg Q4HPRN PRN NEB 05/02/25 05:00 05/02/25 19:35 0.5 MG Sodium Chloride 10 ml Q8HR IV 05/02/25 06:00 05/06/25 06:01 10 ML Acetaminophen/ Hydrocodone Bitart 1 tab Q4HP PRN PO 05/02/25 05:00 05/06/25 11:40 1 TAB Ondansetron HCl 4 mg Q4HP PRN IV 05/02/25 05:00 Docusate Sodium 100 mg BIDPRN PRN PO 05/02/25 05:00 Acetaminophen 650 mg Q6HP PRN PO 05/02/25 05:00 Nitroglycerin 0.4 mg Q5MINP PRN SL 05/02/25 05:00 Morphine Sulfate 2 mg Q30M PRN IV 05/02/25 05:00 05/02/25 05:29 2 MG Sertraline HCl 50 mg DAILY PO 05/02/25 10:00 05/06/25 09:05 50 MG Furosemide 40 mg BIDD IV 05/02/25 18:00 05/06/25 05:58 40 MG Ceftriaxone Sodium 50 ml @ 100 mls/hr DAILY@09 IV 05/03/25 09:00 05/06/25 09:03 100 MLS/HR Azithromycin 250 ml @ 125 mls/hr DAILY IV 05/03/25 10:00 05/06/25 10:01 125 MLS/HR Nifedipine 30 mg DAILY PO 05/04/25 10:00 05/06/25 09:05 30 MG Laboratory Results Laboratory Tests 05/03/25 13:00 05/05/25 05:38 Labs and/or images reviewed: Labs reviewed by me, Image(s) reviewed by me Assessment/Plan Assessment/Plan Acute hypoxic respiratory failure: Oxygen by nasal cannula Acute community-acquired bilateral pneumonia Gram-positive versus Gram-negative: Rocephin azithromycin, albuterol Atrovent Solu-Medrol ESRD on hemodialysis consult for Dr. Farley Hypertensive urgency : Nifedipine 30 mg p.o. daily Pulmonary edema Non ST-elevation [place] consult for Dr. Milian Acute CHF exacerbation: Lasix consult for Dr. Ramirez, echo 60 % ejection, no further cardiac workup Anemia of chronic disease Generalized weakness Patient lives with his sister Patient is hospice revoked Discharged to [facility] on 05/05/2025 awaiting transportation. Plan discussed with: Patient My Orders Orders - CHUNG GOODWIN MD Procedure Category Date Status Time Discharge DISCHARGE 05/05/25 Transmitted 13:17 * Deicer Inspector Pneumatic CONS 05/05/25 Transmitted Consult Insert Midline ORDERS 05/05/25 Transmitted 13:32 Date of Service: May 06, 2025 Billing Provider: CHUNG GOODWIN MD Common Visit Codes: [id number] INP/OBS CARE(HIGH) CHUNG GOODWIN MD May 06, 2025 13:01
--- NOTE | 2025-05-06 15:13 | DVHPN2 ---
Progress Note Date Seen: May 06, 2025 Medical Necessity Reason Pt with a Central, PICC or Fol: No Subjective Patient reports: Feels better Review of Systems: HEENT:Normal Objective vital signs Vital Sign Date Time Temp Pulse Resp B/P (MAP) Pulse Ox O2 Delivery O2 Flow Rate FiO2 05/06/25 15:01 67 192/86 (121) 05/06/25 12:42 53 05/06/25 12:30 97.5 98 97.5 05/06/25 08:00 Nasal Cannula* 3 32 Total Intake and Output 05/05/25 05/05/25 05/06/25 15:00 23:00 07:00 Intake Total 420 ml 1180 ml 240 ml Output Total 0 ml Balance 420 ml 1180 ml 240 ml medications Current Medications Medications Dose Ordered Sig/Miguel Route Start Time Stop Time Status Last Admin Dose Admin Aspirin 81 mg DAILY PO 05/02/25 10:00 05/06/25 09:05 81 MG Atorvastatin Calcium 20 mg HS PO 05/02/25 22:00 05/06/25 00:13 20 MG Albuterol 2.5 mg Q4HPRN PRN NEB 05/02/25 05:00 05/02/25 19:35 2.5 MG Multivit/Ca Carb/ B Cmplx/FA/Prenat 1 tab DAILY PO 05/02/25 10:00 05/06/25 09:04 1 TAB Sevelamer HCl 800 mg TIDWM PO 05/02/25 08:00 05/06/25 12:41 800 MG Metoprolol Tartrate 25 mg BID PO 05/02/25 10:00 05/06/25 09:05 25 MG Hydralazine HCl 10 mg Q6HP PRN IV 05/02/25 05:00 05/06/25 11:41 10 MG Ipratropium Duncan 0.5 mg Q4HPRN PRN NEB 05/02/25 05:00 05/02/25 19:35 0.5 MG Sodium Chloride 10 ml Q8HR IV 05/02/25 06:00 05/06/25 14:00 10 ML Acetaminophen/ Hydrocodone Bitart 1 tab Q4HP PRN PO 05/02/25 05:00 05/06/25 11:40 1 TAB Ondansetron HCl 4 mg Q4HP PRN IV 05/02/25 05:00 Docusate Sodium 100 mg BIDPRN PRN PO 05/02/25 05:00 Acetaminophen 650 mg Q6HP PRN PO 05/02/25 05:00 Nitroglycerin 0.4 mg Q5MINP PRN SL 05/02/25 05:00 Morphine Sulfate 2 mg Q30M PRN IV 05/02/25 05:00 05/02/25 05:29 2 MG Sertraline HCl 50 mg DAILY PO 05/02/25 10:00 05/06/25 09:05 50 MG Furosemide 40 mg BIDD IV 05/02/25 18:00 05/06/25 05:58 40 MG Ceftriaxone Sodium 50 ml @ 100 mls/hr DAILY@09 IV 05/03/25 09:00 05/06/25 09:03 100 MLS/HR Azithromycin 250 ml @ 125 mls/hr DAILY IV 05/03/25 10:00 05/06/25 10:01 125 MLS/HR Nifedipine 30 mg DAILY PO 05/04/25 10:00 05/06/25 09:05 30 MG Examination: GENERAL:Normal, CVS:Normal laboratory and microbiology Laboratory Tests 05/05/25 05:38 05/03/25 13:00 Test 05/05/25 05:38 Range/Units Serum Glucose 81 74-106 mg/dL Problem List/Assessment/Plan Problem List/Assessment/Plan ESRD on dialysis Acute hypoxic respiratory failure Hypertensive emergency Missed Dialysis Noncompliance Obesity Anemia resume home dose nifedpine 60mg po, give extra 30 mg today to equal 60mg HD tomorrow if remains hospitalized renal diet Plan discussed with: Patient Total Time (mins): 26 CELY ORLANDO MD May 06, 2025 15:13
--- NOTE | 2025-05-06 17:09 | DVHPN2 ---
Progress Note - Dictate Date Seen: May 06, 2025 Medical Necessity Reason Pt with a Central, PICC or Fol: No vital signs Vital Sign Date Time Temp Pulse Resp B/P (MAP) Pulse Ox O2 Delivery O2 Flow Rate FiO2 05/06/25 15:17 193/86 05/06/25 15:01 67 05/06/25 12:42 53 05/06/25 12:30 97.5 98 97.5 05/06/25 08:00 Nasal Cannula* 3 32 Total Intake and Output 05/05/25 05/05/25 05/06/25 15:00 23:00 07:00 Intake Total 420 ml 1180 ml 240 ml Output Total 0 ml Balance 420 ml 1180 ml 240 ml laboratory and microbiology Laboratory Tests 05/05/25 05:38 05/03/25 13:00 Test 05/05/25 05:38 Range/Units Serum Glucose 81 74-106 mg/dL Assessment/Plan Impression Acute hypoxemic respiratory failure Bilateral pleural effusions ESRD on HD CHF Patient seen and examined Events Low oxygen requirements On 2 liters nasal cannula No acute events Labs and imaging reviewed Management Supplemental oxygen Titrate to maintain sats 90% or above Incentive spirometry Bronchodilators Monitor renal function HD as per nephrology Management deferred Monitor electrolytes Supplement as needed No thoracentesis DVT prophylaxis Plan discussed with: Patient ALAINA JENKINS MD May 06, 2025 17:09
== END 2025-05-06 16:50 | DRG 280 ==
LOC: ER 00:42 → OVERFLOW 04:51 → TELE-WESTW 22:16 → WEST WING 05-06 13:45
PROVIDERS: ADMIT Family Medicine; ATTEND Family Medicine
PROC: 5A1D70Z Performance of Urinary Filtration, Intermittent, Less than 6 Hours Per Day (ICD-10-PCS; 2025-05-02)
PROC: 5A09357 Assistance with Respiratory Ventilation, Less than 24 Consecutive Hours, Continuous Positive Airway Pressure (ICD-10-PCS; 2025-05-02)
PROC: B24BZZ4 Ultrasonography of Heart with Aorta, Transesophageal (ICD-10-PCS; principal; 2025-05-03)
PROC: 5A1D70Z Performance of Urinary Filtration, Intermittent, Less than 6 Hours Per Day (ICD-10-PCS; 2025-05-03)
PROC: 5A09357 Assistance with Respiratory Ventilation, Less than 24 Consecutive Hours, Continuous Positive Airway Pressure (ICD-10-PCS; 2025-05-03)
PROC: 5A1D70Z Performance of Urinary Filtration, Intermittent, Less than 6 Hours Per Day (ICD-10-PCS; 2025-05-05)
PROC: 05HD33Z Insertion of Infusion Device into Right Cephalic Vein, Percutaneous Approach (ICD-10-PCS; 2025-05-05)
PROC: B54MZZA Ultrasonography of Right Upper Extremity Veins, Guidance (ICD-10-PCS; 2025-05-05)
DX: I21.4 Non-ST elevation (NSTEMI) myocardial infarction (principal); I50.43 Acute on chronic combined systolic (congestive) and diastolic (congestive) heart failure; J15.69 Pneumonia due to other Gram-negative bacteria; N18.6 End stage renal disease; J96.01 Acute respiratory failure with hypoxia; J15.9 Unspecified bacterial pneumonia; I13.2 Hypertensive heart and chronic kidney disease with heart failure and with stage 5 chronic kidney disease, or end stage renal disease; I16.1 Hypertensive emergency; Z20.822 Contact with and (suspected) exposure to COVID-19; D63.1 Anemia in chronic kidney disease; Z99.2 Dependence on renal dialysis; Z68.31 Body mass index [BMI] 31.0-31.9, adult; I35.0 Nonrheumatic aortic (valve) stenosis; E66.9 Obesity, unspecified; I70.0 Atherosclerosis of aorta; Z91.158 Patient's noncompliance with renal dialysis for other reason; I07.1 Rheumatic tricuspid insufficiency; Z99.81 Dependence on supplemental oxygen; E78.5 Hyperlipidemia, unspecified; Z91.148 Patient's other noncompliance with medication regimen for other reason; Z89.021 Acquired absence of right finger(s); Z87.891 Personal history of nicotine dependence; Z79.899 Other long term (current) drug therapy; Z86.73 Personal history of transient ischemic attack (TIA), and cerebral infarction without residual deficits; Z83.3 Family history of diabetes mellitus; Z82.49 Family history of ischemic heart disease and other diseases of the circulatory system; Z82.61 Family history of arthritis
CPT/HCPCS: 36415; 36600; 71045; 80048; 80053; 82805; 83605; 83880; 84100; 84484; 85025; 87340; 87426; 87804; 90935; 93005; 93312; 94640; 94660; 99152; 99291; G0378; J2250

== ENCOUNTER 2025-05-30 02:54 | Inpatient (IN) | payer MEDICARE, MEDICAID ==
[~2025-05-30] VITALS: Ht 170.2 cm; Wt 82.1 kg
[2025-05-30] VITALS (12 sets, daily range): BP systolic 117–225; BP diastolic 64–84; PULSE 65–88; RESP 16–24; TEMP 97.5–98; O2SAT 91–100
[2025-05-30 03:28] LABS: Hematocrit 30.7 % (41.0-53.0); Hemoglobin 10.1 g/dL (13.5-17.5); Mean Corpuscular Hemoglobin 28.4 pg (28.0-32.0); Mean Corpuscular Volume 86.5 fL (80.0-100.0); Nucleated Red Blood Cells % 0.0 %
[2025-05-30 03:38] LABS: Chloride 100 mmol/L (98-107); Sodium 145 mmol/L (136-145)
[2025-05-30 03:39] LABS: Anion Gap 16 (5-15); Carbon Dioxide 29 mmol/L (20-31)
[2025-05-30 03:40] LABS: Calcium 9.1 mg/dL (8.7-10.4); Potassium 3.5 mmol/L (3.5-5.1)
[2025-05-30 03:44] LABS: Glucose 89 mg/dL (74-106)
[2025-05-30] MEDS: MORPHINE SULFATE INJ 2 MG/ml SYRG IV ONE (03:44)
[2025-05-30 03:45] LABS: BUN/Creatinine Ratio 6.0 (10.0-20.0)
[2025-05-30] MEDS: FUROSEMIDE 40 MG/4 ML VIAL IV ONE (03:45)
[2025-05-30] MEDS: hydrALAZINE HCL 20 MG/ML VL IV ONE (03:45)
[2025-05-30 03:50] LABS: Blood Urea Nitrogen 37 mg/dL (9-23)
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
--- NOTE | 2025-05-30 04:10 | DVH ---
CHEST RADIOGRAPH Indication: cp Technique: Single frontal view of the chest was obtained COMPARISON: XY CHEST PORTABLE on DOS: 05/04/25, XY CHEST XRAY 1 VIEW on DOS: 05/02/25, XY CHEST PORTABL E on DOS: 04/30/25, XY CHEST PORTABLE on DOS: 11/04/24, XY CHEST PORTABLE on DOS: 10/26/24 FINDINGS: Lines and Tubes: None Lungs: Grossly stable appearing diffuse Increased prominence of the pulmonary vasculature. Pleura: No effusion. No pneumothorax. Cardiomediastinal contours: Cardiomegaly. Bones: Unremarkable IMPRESSION: 1. Stable appearing cardiomegaly and diffuse increased prominence of the pulmonary vasculature.
[2025-05-30] MEDS ORDERED: NITROGLYCERIN 0.4 MG SL TAB SL PRN (04:15)
[2025-05-30] MEDS ORDERED: ACETAMINOPHEN 325 MG TAB PO PRN (04:15)
[2025-05-30] MEDS ORDERED: DOCUSATE SOD 100 MG CAP PO PRN (04:15)
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
[2025-05-30 04:44] LABS: Albumin 4.4 g/dL (3.2-4.8); Alkaline Phosphatase 60.0 U/L (46-116); Bilirubin, Direct 0.2 mg/dL (<0.3); Bilirubin, Total 0.4 mg/dL (0.2-1.0); Total Protein 7.5 g/dL (5.7-8.2)
[2025-05-30 04:49] LABS: Alanine Aminotransferase 63.0 U/L (7-40)
[2025-05-30] MEDS: ALBUTEROL SULF 2.5 MG/0.5ML(0.5%) NEB SOLN NEB PRN (05:21)
[2025-05-30] MEDS: MORPHINE SULFATE INJ 2 MG/ml SYRG IV PRN (05:43)
[2025-05-30] MEDS: SODIUM CHLOR 0.9% PF (SALINE LOCK) 10ML VIAL/SYR IV SCH (06:07)
[2025-05-30] MEDS: methylPREDNISolone SOD SUCC 125 MG/2 ML VL IV ONE (06:10)
[2025-05-30] MEDS: hydrALAZINE HCL 20 MG/ML VL IV PRN (07:00)
--- NOTE | 2025-05-30 07:08 | ECG ---
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
--- NOTE | 2025-05-30 07:09 | ECG ---
[facility] Test Date: 2025-05-30 Test Time: 04:50:51 Pat Name: MELISSA MATHEWS Department: [facility] ED Patient ID: [id number] Room: 0276T Gender: M Learning [employer] Specialist: : 1955 Requested By: BONG WILLIS Order Number: [id number] Reading MD: Gustavo Karimi Measurements Intervals [place] Rate: 86 P: 50 [place]: 172 QRS: 42 QRSD: 105 T: 225 QT: 485 QTc: 581 Interpretive Statements Sinus rhythm LVH with secondary repolarization abnormality Prolonged QT interval Electronically Signed On 05-31-2025 18:21:15 PDT by Gustavo Karimi Please click the below link to view image of tracing.
--- NOTE | 2025-05-30 07:10 | ECG ---
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
[2025-05-30] MEDS: ONDANSETRON HCL 4 MG/2 ML VIAL IV PRN (07:28)
[2025-05-30] MEDS: SEVELAMER 800 MG TAB PO SCH (09:06)
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
[2025-05-30] MEDS ORDERED: FAMOTIDINE (10MG/ML) 2ML VL IV SCH (10:00)
[2025-05-30] MEDS ORDERED: CARVEDILOL 12.5 MG TAB PO SCH (10:00)
[2025-05-30] MEDS: CARVEDILOL 12.5 MG TAB PO SCH (10:13)
[2025-05-30] MEDS: B-COMPLEX W/ C & FOLIC ACID(NEPHROVITE TAB) PO SCH (10:14)
[2025-05-30] MEDS: FAMOTIDINE (10MG/ML) 2ML VL IV SCH (10:14)
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
[2025-05-30 12:53] LABS: Amphetamine Screen, Urine Neg (NEGATIVE); Benzodiazephine Screen, Urine Pos (NEGATIVE); Opiate Scree,Urine Neg (NEGATIVE)
[2025-05-30 12:54] LABS: Barbiturate Scree,Urine Neg (NEGATIVE); Cannabinoid Screen, Urine Neg (NEGATIVE); Cocaine Screen, Urine Neg (NEGATIVE); Phencyclidine Screen, Urine Neg (NEGATIVE)
[2025-05-30] MEDS: IPRATROPIUM BROM 0.5 MG/2.5ML INH SOL NEB SCH (13:37)
[2025-05-30] MEDS: ALBUTEROL SULF 2.5 MG/0.5ML(0.5%) NEB SOLN NEB SCH (13:37)
--- NOTE | 2025-05-30 14:40 | DVH ---
LEFT lower extremity venous duplex Clinical History: Left calf tenderness Comparison: None Technique: Duplex Doppler evaluation of the deep venous systems of LEFT extremities from the common femoral vein s to the popliteal veins including color Doppler and spectral/pulsed waveform analysis was performed. Findings: LEFT SIDE: The common femoral vein demonstrates appropriate compressibility and waveform variability. There is compressibility/patency of the great saphenous vein at the proximal thigh. The femoral vein demonstrates appropriate compressibility and waveform variability. The deep femoral vein demonstrates appropriate compressibility and waveform variability. The popliteal vein demonstrates appropriate compressibility and waveform variability. There is normal compressibility at the tibioperoneal trunk. Impression: 1. No left femoropopliteal venous thrombosis.
--- NOTE | 2025-05-30 15:31 | DVHINCON2 ---
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 Patient has multiple hospital with recurrent chest pain. He presents to the hospital now with a similar presentation of chest pain was found to have soft blood pressure greater than 200. He was admitted with hypertensive emergency. He is status post oral blood pressure medications and now currently is not in distress Allergies: Coded Allergies: NO KNOWN ALLERGIES (Unverified , 10/17/22) Home Meds Active Scripts Atorvastatin Calcium (ATORVASTATIN CALCIUM) 40 Mg Tab, 40 MG PO DAILY for 30 Days, #30 TAB 0 Refills Prov:RANJAN SZYMANSKI RESIDENT 11/10/24 Reported Medications Sertraline HCl (Sertraline HCl) 50 Mg Tab, 50 MG PO DAILY, TAB 11/06/24 Clonidine Hydrochloride (Clonidine Hydrochloride) 0.3 Mg Tab, 0.3 MG PO TID, TAB 11/06/24 Sevelamer Carbonate (Renvela) 800 Mg Tab, 2 TAB PO TIDWM for 90 Days, #540 10/27/24 Alprazolam (Alprazolam) 1 Mg Tab, 1 TAB PO DAILYPRN PRN for ANXIETY for 30 Days, #30 10/27/24 Nifedipine (Nifedipine Er) 60 Mg Tab, 1 TAB PO DAILY 01/14/24 Tamsulosin Hcl (Tamsulosin Hcl) 0.4 Mg Cap, 1 CAP PO DAILY 01/14/24 Hydralazine Hcl (Hydralazine Hcl) 100 Mg Tab, 1 TAB PO DAILY for 30 Days, #30 01/14/24 Current Medications Current Medications Medications (Trade) Dose Ordered Sig/Miguel Route PRN Reason Start Time Stop Time Status Last Admin Aspirin 81 mg DAILY PO 05/30/25 10:00 05/30/25 10:14 Atorvastatin Calcium (Lipitor) 20 mg HS PO 05/30/25 22:00 Carvedilol (Coreg Tablet) 12.5 mg Q12HR PO 05/30/25 10:00 05/30/25 09:32 DC Hydralazine HCl (Apresoline Injection) 10 mg Q6HP PRN IV SBP>150 05/30/25 04:15 05/30/25 07:00 Amlodipine Besylate (Norvasc Tablet) 10 mg DAILY PO 05/30/25 10:00 05/30/25 09:32 DC Famotidine (Pepcid Injection) 20 mg Q48H IV 05/30/25 10:00 05/30/25 10:14 Sevelamer HCl (Renagel) 800 mg TIDWM PO 05/30/25 08:00 05/30/25 13:23 Multivit/Ca Carb/ B Cmplx/FA/Prenat (Nephro-Kelly Tablet) 1 tab DAILY PO 05/30/25 10:00 05/30/25 10:14 Albuterol (Ventolin Medneb) 2.5 mg Q4HPRN PRN NEB SHORTNESS OF BREATH 05/30/25 04:15 05/30/25 12:57 DC 05/30/25 05:21 Sodium Chloride (Saline Lock Ns) 10 ml Q8HR IV 05/30/25 06:00 05/30/25 14:02 Acetaminophen/ Hydrocodone Bitart ([place] 5/325MG Tab) 1 tab Q4HP PRN PO MODERATE PAIN (4-6 PAIN SCALE) 05/30/25 04:15 Ondansetron HCl (Zofran) 4 mg Q4HP PRN IV NAUSEA / VOMITING 05/30/25 04:15 05/30/25 07:28 Docusate Sodium (Colace Capsule) 100 mg BIDPRN PRN PO FOR CONSTIPATION 05/30/25 04:15 Acetaminophen (Tylenol Tablet) 650 mg Q6HP PRN PO PAIN SCALE 1-3 OR TEMP>100.4 05/30/25 04:15 Nitroglycerin (Ntrostat Sublingual) 0.4 mg Q5MINP PRN SL FOR CHEST PAIN 05/30/25 04:15 Morphine Sulfate 2 mg Q30M PRN IV FOR CHEST PAIN 05/30/25 04:15 05/30/25 12:36 Tamsulosin HCl (Flomax) 0.4 mg QPM PO 05/30/25 18:00 Clonidine HCl (Catapres Tablet) 0.2 mg TID PO 05/30/25 06:00 05/30/25 09:32 DC 05/30/25 05:43 Famotidine (Pepcid Injection) 20 mg BID IV 05/30/25 10:00 05/30/25 07:17 DC Methylprednisolone Sodium Succinate (Solu Medrol) 40 mg TID IV 05/31/25 06:00 Carvedilol (Coreg Tablet) 25 mg Q12HR PO 05/30/25 10:00 05/30/25 10:13 Nifedipine (Procardia Xl (Time-Release)) 90 mg DAILY PO 05/30/25 10:00 05/30/25 10:14 Clonidine HCl (Catapres Tablet) 0.2 mg Q6HP PRN PO SBP>160 05/30/25 09:30 05/30/25 12:35 Hydralazine HCl (Apresoline Tablet) 25 mg Q8HR PO 05/30/25 14:00 05/30/25 14:10 Ipratropium [place] (Atrovent Medneb) 0.5 mg Q4HWA [facility] 05/30/25 14:00 05/30/25 13:37 Albuterol (Ventolin Medneb) 2.5 mg Q4HWA [facility] 05/30/25 14:00 05/30/25 13:37 Family History: Arthritis G8 MOTHER Cardiovascular disease G8 FATHER Diabetes mellitus G8 MOTHER G8 FATHER Review of Systems Chest pain H&P Exam Vital Signs/I&O Vital Sign Date Time Temp Pulse Resp B/P (MAP) Pulse Ox O2 Delivery O2 Flow Rate FiO2 05/30/25 14:10 136/61 05/30/25 14:00 87 18 100 05/30/25 13:36 Nasal Cannula* 2 28 05/30/25 08:00 98.3 98.3 Physical Exam Elderly male Appears slightly older than stated age Currently nonacute distress Abdomen is soft No pitting edema Bilateral crackles Labs/Diagnostic Data Labs/Diagnostic Data Laboratory Tests Test 05/30/25 12:31 05/30/25 10:23 05/30/25 05:50 05/30/25 03:50 Range/Units Urine Opiates Screen Neg NEGATIVE Urine Fentanyl Screen Neg NEGATIVE Urine Barbiturates Screen Neg NEGATIVE Urine Phencyclidine Screen Neg NEGATIVE Urine Amphetamines Screen Neg NEGATIVE Urine Benzodiazepines Screen Pos NEGATIVE Urine Cocaine Screen Neg NEGATIVE Urine Cannabinoids Screen Neg NEGATIVE D-Dimer, Quantitative 1.26 H 0.0-0.49 mg/L FEU Troponin I High Sensitivity 140 *H 160 *H 149 *H </=54 ng/L Test 8/10/25 02:55 Range/Units White Blood Count 5.8 4.4-10.8 10^3/uL Red Blood Count 3.55 L 4.5-5.90 10^6/uL Hemoglobin 10.1 L 13.5-17.5 g/dL Hematocrit 30.7 L 41.0-53.0 % Mean Corpuscular Volume 86.5 80.0-100.0 fL Mean Corpuscular Hemoglobin 28.4 28.0-32.0 pg Mean Corpuscular Hemoglobin Concent 32.9 32.0-36.0 g/dL Red Cell Distribution Width 18.5 H 11.8-14.3 % Platelet Count 263 140-450 10^3/uL Mean Platelet Volume 7.9 6.9-10.8 fL Neutrophils (%) (Auto) 70.7 37.0-80.0 % Lymphocytes (%) (Auto) 14.6 10.0-50.0 % Monocytes (%) (Auto) 11.1 0.0-12.0 % Eosinophils (%) (Auto) 2.6 0.0-7.0 % Basophils (%) (Auto) 1.0 0.0-2.0 % Neutrophils # (Auto) 4.1 1.6-8.6 10 ^3/uL Lymphocytes # (Auto) 0.8 0.4-5.4 10 ^3/uL Monocytes # (Auto) 0.6 0-1.3 10 ^3/uL Eosinophils # (Auto) 0.2 0-0.8 10 ^3/uL Basophils # (Auto) 0.1 0-0.2 10 ^3/uL Nucleated Red Blood Cells 0.0 % Erythrocyte Sedimentation Rate 34 H 0-20 mm/hr Sodium Level 145 136-145 mmol/L Potassium Level 3.5 3.5-5.1 mmol/L Chloride Level 100 98-107 mmol/L Carbon Dioxide Level 29 20-31 mmol/L Anion Gap 16 H 5-15 Blood Urea Nitrogen 37 H 9-23 mg/dL Creatinine 6.21 H 0.700-1.30 mg/dL Glomerular Filtration Rate Calc 9 >90 mL/min BUN/Creatinine Ratio 6.0 L 10.0-20.0 Serum Glucose 89 74-106 mg/dL Calcium Level 9.1 8.7-10.4 mg/dL Total Bilirubin 0.4 0.2-1.0 mg/dL Direct Bilirubin 0.2 <0.3 mg/dL Aspartate Amino Transferase (AST) 27 13-40 U/L Alanine Aminotransferase (ALT) 63 H 7-40 U/L Alkaline Phosphatase 60 46-116 U/L Troponin I High Sensitivity 143 *H </=54 ng/L C-Reactive Protein High Sensitivity 2.04 H <1.0 mg/dL B-Type Natriuretic Peptide > 5000.00 0-100 pg/mL Total Protein 7.5 5.7-8.2 g/dL Albumin 4.4 3.2-4.8 g/dL Assessment 70-year-old male past medical history of end-stage renal disease and hypertension presents to the hospital complaining of chest pain End-stage renal disease Hypertensive emergency Moderate aortic stenosis NSTEMI Anemia due to chronic kidney disease Cardiology evaluation Resume oral blood pressure medications Hemodialysis will be scheduled tomorrow Renal diet Plan discussed with: Patient CELY ORLANDO MD May 30, 2025 15:31
[2025-05-30] MEDS: IOHEXOL 350 MG/ML 100ML IJ ONE (16:09)
--- NOTE | 2025-05-30 17:01 | DVH ---
Procedure: CT CT ANGIO CHEST CONTRAST Study Date and Requested Time: 05/21 04:08 PM History: rule out PE Comparison: None Dose: CTDI: 5.92 mGy DLP: 2.33 mGycm Technique: Multiplanar images of the chest are obtained with contrast. 3-D image postprocessing was p erformed and images were used for interpretation and reporting. Findings: Thyroid gland is unremarkable. Inadequate contrast bolus timing within the pulmonary arteries to evaluate for pulmonary embolism wit h no pulmonary embolism noted centrally. Can not exclude pulmonary embolism within the distal segment al and subsegmental pulmonary arteries. No evidence of aortic aneurysm or dissection. Mild atheroscle rotic calcification of the aorta. Dilatation of the pulmonary trunk up to 35 mm which may be seen wit h pulmonary arterial hypertension. Trace bilateral pleural effusion with hhikl-ehtwxgr-wzui-left bibasilar opacities. No pneumothorax. Moderate cardiomegaly. Wflz-sd-qnsqlqtr atherosclerotic calcification of the coronary arteries. No significant mediastinal or hilar adenopathy. Small hiatal hernia. Mild gastric wall thickening. 9 mm hyperdense focus within the stomach which may represent ingested medication. Small to moderate amount of fecal material within the colon. Subcent imeter hypodense hepatic lesions that are too small to characterize. Mild hyperplasia of the left adr enal gland. No evidence of acute osseous abnormalities. Soft tissues are unremarkable. Impression: Inadequate contrast bolus timing within the pulmonary arteries to evaluate for pulmonary embolism wit h no pulmonary embolism noted centrally. Can not exclude pulmonary embolism distal segmental and sub segmental pulmonary arteries. Dilatation of the pulmonary trunk. Correlate for pulmonary arterial hypertension. Trace bilateral pleural effusions with right skfge-rkqbdhs-hzfz-left posterior lower lobe opacity whi ch may represent atelectasis/ pneumonia. Small hiatal hernia. Gastric wall thickening. Correlate for gastritis. Additional findings as above.
[2025-05-30] MEDS: TAMSULOSIN HYDROCHLORIDE 0.4 MG CAP PO SCH (18:03)
[2025-05-30] MEDS: cefTRIAXone 1GM/50ML D5W 50 ML IV ONE (18:30)
[2025-05-30] MEDS: AZITHROMYCIN 500MG/ 250ML 250 ML IV ONE (20:45)
[2025-05-30] MEDS: HEPARIN SODIUM (PORCINE) 5000 UNITS/ML 1ML VIAL SC SCH (22:00)
[2025-05-30] MEDS: HYDROcodone-ACET 5/325MG TAB PO PRN (22:37)
[2025-05-30] MEDS: ATORVASTATIN 20 MG TAB PO SCH (22:41)
[2025-05-31] MEDS: HYDROcodone-ACET 5/325MG TAB PO ONE (00:30)
[2025-05-31 01:00] VITALS: BP 117/68; PULSE 67; RESP 16; TEMP 98; O2SAT 97
[2025-05-31 05:00] VITALS: BP 142/72; PULSE 75; RESP 20; TEMP 97.9; O2SAT 94
[2025-05-31 05:41] VITALS: O2SAT 99
[2025-05-31] MEDS: methylPREDNISolone SOD SUCC 40 MG/ML VL IV SCH (06:21)
[2025-05-31 06:32] LABS: Hematocrit 27.8 % (41.0-53.0); Hemoglobin 9.2 g/dL (13.5-17.5); Mean Corpuscular Hemoglobin 28.7 pg (28.0-32.0); Mean Corpuscular Volume 87.3 fL (80.0-100.0); Nucleated Red Blood Cells % 0.0 %
[2025-05-31 06:46] LABS: Albumin 3.9 g/dL (3.2-4.8); Alkaline Phosphatase 54 U/L (46-116); Anion Gap 14 (5-15); BUN/Creatinine Ratio 5.0 (10.0-20.0); Calcium 8.7 mg/dL (8.7-10.4); Carbon Dioxide 27 mmol/L (20-31); Chloride 99 mmol/L (98-107); Glucose 102 mg/dL (74-106); Potassium 4.8 mmol/L (3.5-5.1); Sodium 140 mmol/L (136-145); Total Protein 6.7 g/dL (5.7-8.2)
[2025-05-31 06:47] LABS: Alanine Aminotransferase 42 U/L (7-40); Bilirubin, Total 0.2 mg/dL (0.2-1.0); Blood Urea Nitrogen 37 mg/dL (9-23)
[2025-05-31] MEDS ORDERED: SODIUM CHL 0.9% 1000 ML BAG XX ONE (07:00)
[2025-05-31 08:00] VITALS: PULSE 76
[2025-05-31] MEDS: cefTRIAXone 1GM/50ML D5W 50 ML IV SCH (08:31)
[2025-05-31 08:46] VITALS: BP 151/72; PULSE 68; RESP 20; TEMP 97.7; O2SAT 93
[2025-05-31 10:13] LABS: Hepatitis B Surface Antigen Negative (Negative)
[2025-05-31 10:41] LABS: Hepatitis C Antibody Positive (Negative)
[2025-05-31] MEDS ORDERED: OXYCODONE W/ ACETAMINOPHEN 5/325MG TABLET PO PRN ×2 (11:15)
[2025-05-31 13:00] VITALS: BP 141/72; PULSE 69; RESP 19; TEMP 98.3; O2SAT 92
[2025-05-31] MEDS ORDERED: AUG875T PO (14:13)
[2025-05-31] MEDS ORDERED: AZIT500T66 PO (14:13)
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
--- NOTE | 2025-05-31 19:09 | DVHPN2 ---
Progress Note Date Seen: May 31, 2025 Medical Necessity Reason Pt with a Central, PICC or Fol: No Subjective Patient reports: No new complaints Review of Systems: Deferred Objective vital signs Vital Sign Date Time Temp Pulse Resp B/P (MAP) Pulse Ox O2 Delivery O2 Flow Rate FiO2 05/31/25 15:38 181/98 05/31/25 13:00 98.3 69 19 92 98.3 05/31/25 10:00 Nasal Cannula 3.0 05/31/25 10:00 32 Total Intake and Output 05/30/25 05/30/25 05/31/25 15:00 23:00 07:00 Intake Total 380 ml Balance 380 ml laboratory and microbiology Laboratory Tests 05/31/25 05:53 Test 05/31/25 05:53 Range/Units Serum Glucose 102 74-106 mg/dL Problem List/Assessment/Plan Problem List/Assessment/Plan End-stage renal disease Hypertensive emergency Moderate aortic stenosis NSTEMI Anemia due to chronic kidney disease recs HD today Plan discussed with: Patient RIVER MCKINNON MD May 31, 2025 19:09
[2025-05-31] MEDS ORDERED: AZITHROMYCIN 500MG/ 250ML 250 ML IV SCH (21:00)
--- NOTE | 2025-06-01 07:29 | ECG ---
[facility] Test Date: 2025-05-30 Test Time: 23:15:31 Pat Name: MELISSA MATHEWS Department: Room: 0276T B Gender: M Zoning Engineer: [id number] : 1955 Requested By: RIOG YOU Order Number: [id number] Reading MD: Measurements Intervals [place] Rate: 67 P: 43 [place]: 182 QRS: 4 QRSD: 107 T: 205 QT: 452 QTc: 478 Interpretive Statements Sinus rhythm LVH with secondary repolarization abnormality Anterior ST elevation, probably due to LVH Borderline prolonged QT interval Please click the below link to view image of tracing.
== END 2025-05-31 16:00 | disposition home or self-care (01) | DRG 280 ==
LOC: EDBD 02:54 → ER 02:54 → OVERFLOW 04:11 → TELE-WESTW 17:53
PROVIDERS: ADMIT Internal Medicine Geriatric Medicine; ATTEND Internal Medicine Nephrology
PROC: 5A1D70Z Performance of Urinary Filtration, Intermittent, Less than 6 Hours Per Day (ICD-10-PCS; principal; 2025-05-31)
DX: I13.2 Hypertensive heart and chronic kidney disease with heart failure and with stage 5 chronic kidney disease, or end stage renal disease (principal); I50.33 Acute on chronic diastolic (congestive) heart failure; I21.A1 Myocardial infarction type 2; J15.69 Pneumonia due to other Gram-negative bacteria; N18.6 End stage renal disease; J15.9 Unspecified bacterial pneumonia; I16.1 Hypertensive emergency; J96.10 Chronic respiratory failure, unspecified whether with hypoxia or hypercapnia; J44.0 Chronic obstructive pulmonary disease with (acute) lower respiratory infection; D63.1 Anemia in chronic kidney disease; Z99.81 Dependence on supplemental oxygen; Z99.2 Dependence on renal dialysis; I35.0 Nonrheumatic aortic (valve) stenosis; E11.22 Type 2 diabetes mellitus with diabetic chronic kidney disease; I25.10 Atherosclerotic heart disease of native coronary artery without angina pectoris; I25.2 Old myocardial infarction; Z91.199 Patient's noncompliance with other medical treatment and regimen due to unspecified reason; Z86.73 Personal history of transient ischemic attack (TIA), and cerebral infarction without residual deficits; Z83.3 Family history of diabetes mellitus; Z82.49 Family history of ischemic heart disease and other diseases of the circulatory system; Z82.61 Family history of arthritis; Z91.148 Patient's other noncompliance with medication regimen for other reason
CPT/HCPCS: 36415; 71045; 71275; 80048; 80053; 80074; 80076; 80307; 83880; 84484; 85025; 85379; 85652; 86141; 90935; 93005; 93971; 94640; G0378; J2405; J3490

== ENCOUNTER 2025-07-05 15:28 | Inpatient (IN) | payer OTHER, MEDICAID ==
[~2025-07-05] VITALS: Ht 170.2 cm; Wt 79.9 kg
[~2025-07-05 15:28] MED LIST changes: +AUG875T PO; +AZIT500T66 PO; +FURO40TA4 PO; +NIFE90TA75 PO
--- NOTE | 2025-07-05 16:07 | ED.PDOC ---
HPI Comments HPI: 70-year-old male who presents to the emergency department via EMS with a chief complaint of chest pain onset today. Per EMS, patient was at dialysis, when he began experiencing left-sided chest pain radiating to left arm. Dialysis was stopped, 911 was called. Patient nitro EN route to ED by EMS, states there is slight improvement in pain. Denies shortness of breath, fever, chills, cough, congestion, dizziness, headache, blurred vision, numbness/tingling, weakness. No other symptoms or modifying factors present at this time. Initial Vitals BP: 118/74 HR:97 RR: 18 O2: 94% Temp: 98.0 F Past Medical History: CHF, COPD, CVA, ESRD, HTN, MO Past Surgical History: hernia repair Social History: Denies ETOH, smoking, and drug use. Medications: atorvastatin, clonidine, Hydralazine Allergies: NKDA HPI: Poor Historian. REVIEW OF SYSTEMS: CONSTITUTIONAL: Denies acute: fever, diaphoresis, chills, HEAD: Denies acute: headache, photophobia Eyes: Denies acute: Double vision, vision loss, eye pain, eye discharge. EARS: Denies acute: tinnitus, hearing loss, ear discharge, ear pain, THROAT: Denies acute: sore throat, swelling, difficulty swallowing , pain with swallowing, change in voice. NECK: Denies acute: neck pain, neck swelling, stiff neck. HEART: Denies acute : palpitations, LUNGS: Denies acute: wheezing, cough, hemoptysis ABDOMEN: Denies acute: abdominal pain, Nausea, Vomiting, diarrhea, melena , hematemesis, hematochezia SKIN: Denies acute: rash, redness, lesions, itchiness. EXTREMITIES: Denies acute: calf pain, numbness, tingling, weakness, denies pain in extremity. Denies acute: Low back pain. Neuro: Denies acute: focal neurological deficit, motor or sensory focal neurological deficit, tremors, seizure like activity, confusion, dizziness, change in mental status, loss of bowel or bladder function, cauda equina like symptoms. : Denies acute: dysuria, hematuria, flank pain, increase in urinary frequency. PSYCH: Denies acute: hallucination, suicidal ideation, homicidal ideation. PHYSICAL EXAM: General: ---mild-to moderate----acute distress, awake and alert. Head: normocephalic, atraumatic. Neck: supple, trachea is midline, no swelling. Throat: Normal phonation. Eyes:, no erythema, no purulent discharge, no proptosis, no icterus. Heart: regular rate, regular rhythm, no significant murmur appreciated. Lungs: no apparent respiratory distress, Able to speak in full sentences. No wheezing, no rhonchi, no crackles. No stridors Clear to auscultation bilaterally. Abdomen: non tender to palpation, non distended, soft, no guarding, no rebound, + bowel sounds. Neuro: Awake, Alert, oriented to name, self, situation, follows commands GCS=15. Speech is normal. Skin: no petechia, no purpura, no cyanosis, non-pale, not jaundice. Lower extremities: --2/4 B/L - Pitting edema no deformity, no focal swelling, no calf TTP. Makes eye contact. moves all four extremities. Face: no apparent facial droop. ED COURSE: DISCLAIMER: This medical document was created using an electronic medical record system with voice recognition software and computerized dictation system. Although this document has been carefully reviewed, there might still be some phonetic and typographical errors. Occasional wrong-word or "sound-alike" substitutions may have occurred due to the inherent limitations of voice recognition software. These areas are purely typographical due to imperfections of the software programs and do not reflect any compromise in the patient's medical care. Please read the chart carefully and recognize, using context, where these substitutions have occurred. Chief Complaint: Chest Pain Time Seen by MD: 15:40 Primary Care Provider: n/a Reviewed Notes: Medications, Allergies Allergies: Coded Allergies: NO KNOWN ALLERGIES (Unverified , 10/17/22) Home Meds Active Scripts Amoxicillin & Pot Clavulanate (AUGMENTIN TABLET) 875 Mg Tb, 875 MG PO BID for 5 Days, #10 TAB Prov:ZEN PEPE RESIDENT 05/31/25 Azithromycin (Azithromycin) 500 Mg Tab, 1 TAB PO DAILY for 3 Days, #3 TAB Prov:PEPEZEN RESIDENT 05/31/25 Atorvastatin Calcium (ATORVASTATIN CALCIUM) 40 Mg Tab, 40 MG PO DAILY for 30 Days, #30 TAB 0 Refills Prov:RANJAN SZYMANSKI RESIDENT 11/10/24 Reported Medications Sertraline HCl (Sertraline HCl) 50 Mg Tab, 50 MG PO DAILY, TAB 11/06/24 Clonidine Hydrochloride (Clonidine Hydrochloride) 0.3 Mg Tab, 0.3 MG PO TID, TAB 11/06/24 Sevelamer Carbonate (Renvela) 800 Mg Tab, 2 TAB PO TIDWM for 90 Days, #540 10/27/24 Alprazolam (Alprazolam) 1 Mg Tab, 1 TAB PO DAILYPRN PRN for ANXIETY for 30 Days, #30 10/27/24 Nifedipine (Nifedipine Er) 60 Mg Tab, 1 TAB PO DAILY 01/14/24 Tamsulosin Hcl (Tamsulosin Hcl) 0.4 Mg Cap, 1 CAP PO DAILY 01/14/24 Hydralazine Hcl (Hydralazine Hcl) 100 Mg Tab, 1 TAB PO DAILY for 30 Days, #30 01/14/24 Information Source: Patient, Emergency Med Personnel Mode of Arrival: EMS Severity: Moderate Timing: Hours Duration: Since onset Prehospital treatment: Other (Nitro) Location: Chest (L) Radiation: Arm (L) Quality: Sharp Onset: At Rest Cardiac Risk Factors: HTN PE Risk Factors: None History of: MO Modifying Factors: Nothing Past Medical History PAST MEDICAL HISTORY: CHF, COPD, CVA, ESRD, HTN, MO Surgical History: Hernia Repair Family History Family History: Reviewed,noncontributory to illness Social History Smoker: Non-Smoker Alcohol: Denies ETOH Use Drugs: Denies Drug Use Lives In: Home Was a procedure done? Was a procedure done?: No CP Differential Dx Differential Diagnosis: N/A Differential Diagnosis: Other (Ddx include but not limitied to gastritis, musculoskeletal pain, radiculopathy, atypical chest pain, dissection, aneurysm, ACS, unstable angina, hiatal hernia, GERD, anxiety, costochondritis, PE, pneumothroax, neoplasm, cardiac ischemia, drug abuse, anemia.) X-Ray, Labs, Meds, VS Vital Signs Date Time Temp Pulse Resp B/P (MAP) Pulse Ox O2 Delivery O2 Flow Rate FiO2 07/05/25 16:46 86 07/05/25 16:01 98.0 94 18 118/74 9 98.0 07/05/25 15:35 97 Lab Test 07/05/25 16:12 Range/Units White Blood Count 6.7 4.4-10.8 10^3/uL Red Blood Count 3.76 L 4.5-5.90 10^6/uL Hemoglobin 10.0 L 13.5-17.5 g/dL Hematocrit 30.7 L 41.0-53.0 % Mean Corpuscular Volume 81.5 80.0-100.0 fL Mean Corpuscular Hemoglobin 26.6 L 28.0-32.0 pg Mean Corpuscular Hemoglobin Concent 32.6 32.0-36.0 g/dL Red Cell Distribution Width 16.2 H 11.8-14.3 % Platelet Count 328 140-450 10^3/uL Mean Platelet Volume 7.9 6.9-10.8 fL Neutrophils (%) (Auto) 84.0 H 37.0-80.0 % Lymphocytes (%) (Auto) 6.8 L 10.0-50.0 % Monocytes (%) (Auto) 4.9 0.0-12.0 % Eosinophils (%) (Auto) 4.0 0.0-7.0 % Basophils (%) (Auto) 0.3 0.0-2.0 % Neutrophils # (Auto) 5.6 1.6-8.6 10 ^3/uL Lymphocytes # (Auto) 0.5 0.4-5.4 10 ^3/uL Monocytes # (Auto) 0.3 0-1.3 10 ^3/uL Eosinophils # (Auto) 0.3 0-0.8 10 ^3/uL Basophils # (Auto) 0 0-0.2 10 ^3/uL Nucleated Red Blood Cells 0.1 % Prothrombin Time 10.7 9.3-11.8 sec Prothrombin Time INR 1.01 0.9-1.15 Activated Partial Thromboplast Time 33.5 24.5-34.5 SEC Sodium Level 139 136-145 mmol/L Potassium Level 3.2 L 3.5-5.1 mmol/L Chloride Level 102 98-107 mmol/L Carbon Dioxide Level 24 20-31 mmol/L Anion Gap 13 5-15 Blood Urea Nitrogen 31 H 9-23 mg/dL Creatinine 6.33 H 0.700-1.30 mg/dL Glomerular Filtration Rate Calc 9 >90 mL/min BUN/Creatinine Ratio 4.9 L 10.0-20.0 Serum Glucose 125 H 74-106 mg/dL Calcium Level 8.4 L 8.7-10.4 mg/dL Phosphorus Level 4.5 2.4-5.1 mg/dL Magnesium Level 2.0 1.6-2.6 mg/dL Total Bilirubin < 0.2 L 0.2-1.0 mg/dL Aspartate Amino Transferase (AST) 17 13-40 U/L Alanine Aminotransferase (ALT) < 9 7-40 U/L Alkaline Phosphatase 72 46-116 U/L Troponin I High Sensitivity 95 *H </=54 ng/L B-Type Natriuretic Peptide 3185.01 0-100 pg/mL Total Protein 6.7 5.7-8.2 g/dL Albumin 3.6 3.2-4.8 g/dL Triglycerides Level 57 < 150 mg/dL Cholesterol Level 119 < 200 mg/dL LDL Cholesterol 73 < 100 mg/dL HDL Cholesterol 36 L 40-59 mg/dL Vitamin B12 Level 275 211-911 pg/mL Vitamin D 25-Hydroxy 42.6 30.0-100 ng/mL Thyroid Stimulating Hormone (TSH) 0.36 L 0.55-4.78 uIU/mL Current Medications Medications (Trade) Dose Ordered Sig/Miguel Route Start Time Stop Time Status Last Admin Albuterol (Ventolin Medneb) 2.5 mg ONCE ONCE NEB 07/05/25 17:00 07/05/25 17:01 DC 07/05/25 17:51 Ipratropium Warner (Atrovent Medneb) 1 mg ONCE ONCE NEB 07/05/25 17:00 07/05/25 17:01 DC 07/05/25 17:51 Methylprednisolone Sodium Succinate (Solu Medrol) 125 mg ONCE ONCE IV 07/05/25 17:00 07/05/25 17:01 DC 07/05/25 21:[address] [address] Ph: [phone] DIAGNOSTIC IMAGING Diagnostic Imaging Report : [id number] Signed PATIENT: MELISSA MATHEWSACCT: [id number] UNIT: [id number] : 1955 LOC: ER ROOM / BED: / AGE / SEX: 70 / M ADM STATUS: REG ER SERVICE 1545 ORDERING PHYSICIAN: JOHN PAUL MALDONADO DO PROCEDURE(s): CXRP - CHEST PORTABLE REASON: cp ORDER NUMBER(s): [id number], ACCESSION NUMBER(s): [id number] CHEST RADIOGRAPH Indication: cp Technique: Single frontal view of the chest was obtained Comparison: XY CHEST XRAY 1 VIEW on DOS: 05/30/25, XY CHEST PORTABLE on DOS: 05/04/25, XY CHEST XRAY 1 VIEW on DOS: 05/02/25 FINDINGS: Lines and Tubes: None Lungs: Prominent interstitial disease bilaterally. This may represent congestive failure or pneumonia. Correlate with the clinical setting. Pleura: No effusion. No pneumothorax. Cardiomediastinal contours: Cardiomegaly Bones: No acute osseous abnormality. IMPRESSION: 1. Prominent interstitial disease bilaterally. 2. This may represent congestive failure or pneumonia. 3. Correlate with the clinical setting. ATED BY: DILAN GIFFORD Jr., DO DICTATED DATE/TIME: 07/05/251649 SIGNED BY: DILAN GIFFORD Jr., SIGNED DATE/TIME: 07/05/251649 CC: Time of 1ST Reevaluation: 16:10 Reevaluation 1ST: Unchanged Patient Education/Counseling: Diagnosis, Treatment Family Education/Counseling: No Family Present Comments MDM: patient presented with the above HPI.--cardiac----workup was initiated. patient was found with the above mentioned diagnosis. the following medications were ordered: please refer to order lists of meds and tests obtained by myself Dr. Maldonado. Patient ED course and VS have been stabilized. Patient has been reassessed in the ED and remained in a stable condition. Pertinent incidental findings were discussed with the patient and/or family. Patient/family voices understanding and is agreeable with plan. Patient has been observed in the ED adequate length of time to insure improvement/stability. Escalation of care considered: Consideration of escalation to observation or admission Patient was ADMITTED to the medicine team for further evaluation and treatment of their presentation. All the reports of any imaging studies that were ordered by myself were reviewed by myself. Departure 1 Departure Time of Disposition: 16:12 Impression: Primary Impression: Chest pain Additional Impressions: ESRD on hemodialysis Pulmonary vascular congestion Elevated troponin Disposition: ADMITTED INPATIENT Admit to: Tele Condition: Guarded Discharged With: Self Critical Care Note Critical Care Time?: Yes (35 min-critical care time only) Heart Score Heart Score: Heart Score Response (Comments) Value History Highly Suspicious 2 EKG Normal 0 Age >65 2 Risk Factors >3 or Hx ASHD 2 Troponin 1-2 x's Normal limit 1 Total 7 I personally scribed for JOHN PAUL MALDONADO DO ([email or web address]) on 07/05/25 at 16:07. Electronically submitted by Katia Colunga ([email or web address]). I personally scribed for JOHN PAUL MALDONADO DO ([email or web address]) on 07/05/25 at 16:56. Electronically submitted by Katia Colunga ([email or web address]). I personally scribed for JOHN PAUL MALDONADO DO ([email or web address]) on 07/05/25 at 16:56. Electronically submitted by Katia Colunga ([email or web address]). I personally scribed for JOHN PAUL MALDONADO DO ([email or web address]) on 07/05/25 at 17:04. Electronically submitted by Katia Colunga ([email or web address]). JOHN PAUL MALDONADO DO Jul 05, 2025 16:07
[2025-07-05 16:28] LABS: Hematocrit 30.7 % (41.0-53.0); Hemoglobin 10.0 g/dL (13.5-17.5); Mean Corpuscular Hemoglobin 26.6 pg (28.0-32.0); Mean Corpuscular Volume 81.5 fL (80.0-100.0); Nucleated Red Blood Cells % 0.1 %
[2025-07-05 16:44] LABS: Albumin 3.6 g/dL (3.2-4.8); Alkaline Phosphatase 72 U/L (46-116); Anion Gap 13 (5-15); BUN/Creatinine Ratio 4.9 (10.0-20.0); Carbon Dioxide 24 mmol/L (20-31); Chloride 102 mmol/L (98-107); Sodium 139 mmol/L (136-145); Total Protein 6.7 g/dL (5.7-8.2)
[2025-07-05 16:45] LABS: Alanine Aminotransferase < 9 U/L (7-40); Bilirubin, Total < 0.2 mg/dL (0.2-1.0); Blood Urea Nitrogen 31 mg/dL (9-23); Calcium 8.4 mg/dL (8.7-10.4); Glucose 125 mg/dL (74-106); Potassium 3.2 mmol/L (3.5-5.1)
--- NOTE | 2025-07-05 16:47 | ECG ---
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
--- NOTE | 2025-07-05 16:53 | DVH ---
CHEST RADIOGRAPH Indication: cp Technique: Single frontal view of the chest was obtained Comparison: XY CHEST XRAY 1 VIEW on DOS: 05/30/25, XY CHEST PORTABLE on DOS: 05/04/25, XY CHEST XRAY 1 VIEW on DOS: 05/02/25 FINDINGS: Lines and Tubes: None Lungs: Prominent interstitial disease bilaterally. This may represent congestive failure or pneumoni a. Correlate with the clinical setting. Pleura: No effusion. No pneumothorax. Cardiomediastinal contours: Cardiomegaly Bones: No acute osseous abnormality. IMPRESSION: 1. Prominent interstitial disease bilaterally. 2. This may represent congestive failure or pneumonia. 3. Correlate with the clinical setting.
[2025-07-05] MEDS ORDERED: NITROGLYCERIN 0.4 MG SL TAB SL PRN (17:30)
[2025-07-05] MEDS ORDERED: ACETAMINOPHEN 325 MG TAB PO PRN (17:30)
[2025-07-05 17:51] VITALS: BP 118/74; PULSE 86; RESP 20; TEMP 98; O2SAT 91
[2025-07-05] MEDS: LEVALBUTEROL HCL 1.25 MG/3 ML NEB NEB SCH (17:51)
[2025-07-05] MEDS: ALBUTEROL SULF 2.5 MG/0.5ML(0.5%) NEB SOLN ONE (17:51)
[2025-07-05] MEDS: IPRATROPIUM BROM 0.5 MG/2.5ML INH SOL NEB ONE (17:51)
[2025-07-05] MEDS: ALBUTEROL SULF 2.5 MG/0.5ML(0.5%) NEB SOLN NEB ONE (17:51)
[2025-07-05] MEDS: IPRATROPIUM BROM 0.5 MG/2.5ML INH SOL ONE (17:51)
[2025-07-05] MEDS: IPRATROPIUM BROM 0.5 MG/2.5ML INH SOL NEB SCH (17:51)
--- NOTE | 2025-07-05 18:22 | DVHHPRES ---
History of Present Illness Resident Creating Document: AMEYA AC History of Present Illness Abraham Landry is is a 70-year-old male patient who presents to the ED with chief complaint of stabbing inframammary chest pain which then progress to oppressive retrosternal chest pain intensity 06/30, patient said that it was triggered by starting hemodialysis session, partially relieved by nitroglycerin sublingual pills, associated with dyspnea and palpitation in Functional Class IV, prompting his visit to the ED via EMS. And when arriving to ED patient's chest pain is still 8/10, has lasted for over 3 hours. Patient also reports syncopal episode approximately one week ago, but he did not seek any medical attention at that time. Denies any other associated symptoms Past medical history: Hypertension, ESRD (Saturday and Saturday, Dr. Farley is his kettle cleaner) HFpEF (last echocardiogram done on 04/2025 which showed moderate LVH, LVEF 55-60%, diastolic dysfunction grade 2, [id number] aortic stenosis, with posterior TAMARA which showed mild aortic stenosis), COPD on home oxygen (3 L/min), multiple hospitalizations due to community-acquired pneumonia (last one on 04/2025), CVA in 2023, BPH, anemia due to ESRD. Surgical history: Multiple coronary angiographies, last one in 2023 over at [facility] which showed nonobstructive coronary artery disease (no stents were placed), AV fistula (once was complicated by bleeding), right finger surgery, multiple hernia repairs Family history: Father and brother have heart disease Social history: Lives in [place] with sister (next of kin). Current smoker (20 pack-year history of smoking), occasionally smokes marijuana. Ex ethanol and ex methamphetamine abuse. Denies current alcohol and other drug abuse. Allergies: Denies Home medication: Hydralazine, clonidine, nifedipine, furosemide Patient seen and examined in wheelchair. Currently still complains of retrosternal oppressive chest pain. Indicated sublingual nitroglycerin and IV morphine if refractory pain persists. EKG shows no ST-elevation, does show repolarization alteration due to LVH. Past Medical History Per HPI Past Surgical History Per HPI Family History Per HPI Past Social History Per HPI Review of Systems Review of Systems Per HPI Allergies: Coded Allergies: NO KNOWN ALLERGIES (Unverified , 10/17/22) Medications Current Medications Medications Dose Ordered Sig/Miguel Route Start Time Stop Time Status Last Admin Dose Admin Acetaminophen 325 mg Q4HP PRN PO 07/05/25 17:30 UNV Nitroglycerin 0.4 mg Q5MINP PRN SL 07/05/25 17:30 UNV Morphine Sulfate 2 mg Q30M PRN IV 07/05/25 17:30 UNV Patient Own Medication 40 mg DAILY PO 07/06/25 10:00 UNV Aspirin 81 mg DAILY PO 07/06/25 10:00 UNV Heparin Sodium (Porcine) 5,000 units Q12HR SC 07/05/25 22:00 UNV Morphine Sulfate 2 mg Q4HPRN PRN IV 07/05/25 18:00 UNV Furosemide 40 mg TID IV 07/05/25 22:00 UNV Exam Vital Signs Vital Signs Date Time Temp Pulse Resp B/P (MAP) Pulse Ox O2 Delivery O2 Flow Rate FiO2 07/05/25 17:51 20 91 Nasal Cannula* 3 32 07/05/25 16:46 86 07/05/25 16:01 98.0 118/74 98.0 Exam Patient lying in bed, in mild distress General: Lucid, unkempt, afebrile, mucosae are moist, macroglossia Cardiovascular: Normal S1 and S2. Systolic ejective late peaking crescendo decrescendo murmur best heard in aortic foci intensity 3/6. No gallops or rubs Respiratory: Regular ventilation mechanics, tachypneic. Hyperventilation in right base and rales in bibasilar area, scattered wheezing in both hemithorax, rest of lung auscultation is clear Abdomen: Soft, nontender, no organomegaly, normal bowel sounds MSK/skin: Mobilizes 4 limbs. Skin is dry and warm. Bilateral Suprapatellar pitting edema. Av fistula in left arm, thrills. Neurological: Oriented in 3 spheres. No motor no sensitive deficits. Pupils are isocoric and reactive Labs/Xrays Labs Test 07/05/25 16:12 Range/Units White Blood Count 6.7 4.4-10.8 10^3/uL Red Blood Count 3.76 L 4.5-5.90 10^6/uL Hemoglobin 10.0 L 13.5-17.5 g/dL Hematocrit 30.7 L 41.0-53.0 % Mean Corpuscular Volume 81.5 80.0-100.0 fL Mean Corpuscular Hemoglobin 26.6 L 28.0-32.0 pg Mean Corpuscular Hemoglobin Concent 32.6 32.0-36.0 g/dL Red Cell Distribution Width 16.2 H 11.8-14.3 % Platelet Count 328 140-450 10^3/uL Mean Platelet Volume 7.9 6.9-10.8 fL Neutrophils (%) (Auto) 84.0 H 37.0-80.0 % Lymphocytes (%) (Auto) 6.8 L 10.0-50.0 % Monocytes (%) (Auto) 4.9 0.0-12.0 % Eosinophils (%) (Auto) 4.0 0.0-7.0 % Basophils (%) (Auto) 0.3 0.0-2.0 % Neutrophils # (Auto) 5.6 1.6-8.6 10 ^3/uL Lymphocytes # (Auto) 0.5 0.4-5.4 10 ^3/uL Monocytes # (Auto) 0.3 0-1.3 10 ^3/uL Eosinophils # (Auto) 0.3 0-0.8 10 ^3/uL Basophils # (Auto) 0 0-0.2 10 ^3/uL Nucleated Red Blood Cells 0.1 % Sodium Level 139 136-145 mmol/L Potassium Level 3.2 L 3.5-5.1 mmol/L Chloride Level 102 98-107 mmol/L Carbon Dioxide Level 24 20-31 mmol/L Anion Gap 13 5-15 Blood Urea Nitrogen 31 H 9-23 mg/dL Creatinine 6.33 H 0.700-1.30 mg/dL Glomerular Filtration Rate Calc 9 >90 mL/min BUN/Creatinine Ratio 4.9 L 10.0-20.0 Serum Glucose 125 H 74-106 mg/dL Calcium Level 8.4 L 8.7-10.4 mg/dL Total Bilirubin < 0.2 L 0.2-1.0 mg/dL Aspartate Amino Transferase (AST) 17 13-40 U/L Alanine Aminotransferase (ALT) < 9 7-40 U/L Alkaline Phosphatase 72 46-116 U/L Troponin I High Sensitivity 95 *H </=54 ng/L B-Type Natriuretic Peptide 3185.01 0-100 pg/mL Total Protein 6.7 5.7-8.2 g/dL Albumin 3.6 3.2-4.8 g/dL SEPSIS Sepsis Screen Date sepsis recognized/suspect: Jul 05, 2025 Time Sepsis recognized/suspect: 1534 Recent Procedure: No On Antibiotic Therapy: No Respiratory Rate >20: No Heart Rate >90: Yes Temp<36 C (96.8 F) or >38.3 C: No SBP <90 or MAP <65 mmHG: No New Acute Mental Status Change: No Is the patient on CPAP, BIPAP,: No Physician Orders Motor Adjuster (07/05/25 ) Chest Portable (07/05/25 15:45) Troponin-I Hs (07/05/25 16:45) Troponin-I Hs (07/05/25 18:45) Electrocardigram (07/05/25 16:45) Electrocardigram (07/05/25 18:45) Admit (07/05/25:) Code Status (07/05/25:) Acetaminophen Tablet (Tylenol Tablet) (07/05/25 17:30) Complete Blood Count (07/06/25 04:00) Comprehensive Metabolic Panel (07/06/25 04:00) Npo (Nothing By Mouth) Diet (07/05/25 Dinner) Condition: Unstable (07/05/25:) Nitroglycerin Sublingual (Ntrostat Subli (07/05/25 17:30) Morphine Sulfate Injection (07/05/25 17:30) Oxygen By Nasal Cannula (07/05/25 17:26) Stat Ekg For Chest Pain (07/05/25 17:26) Notify Md Of Changes From Base (07/05/25 17:26) Broadcast Operations Technician For 24 Hours (07/05/25 17:26) Emergency Dysrhythmia Protocol (07/05/25 17:) Rhythm Strips Once Every Shift (07/05/25 17:) (Nf) Atorvastatin Calcium (07/06/25 10:00) Aspirin Tablet (07/06/25 10:00) Heparin Sodium (Porcine) (07/05/25 22:00) *[facility] (07/05/25 17:33) Morphine Sulfate Injection (07/05/25 18:00) Furosemide Injection (Lasix Injection) (07/05/25 22:00) Furosemide Injection (Lasix Injection) (07/05/25 18:00) Nicotine 21mg/24hr (Nicoderm 21mg/24hr) (07/05/25 18:00) Nicotine 21mg/24hr (Nicoderm 21mg/24hr) (07/06/25 10:00) Vitamin D, 25-Hydroxy (07/05/25 17:58) Vitamin B12 (07/05/25 17:58) Urinalysis (07/05/25 17:58) Thyroid Stimulating Hormone (07/05/25 17:58) PTPTT (07/05/25 17:58) Phosphorus (07/05/25 17:58) Magnesium (07/05/25 17:58) Lipid Panel (07/05/25 17:58) Lactic Acid W/ Reflex Order (07/05/25 17:58) Hemoglobin A1c (07/05/25 17:58) Drug Screen (07/05/25 17:58) Levalbuterol Hcl (Xopenex Medneb) (07/05/25 18:00) Ipratropium Medneb (Atrovent Medneb) (07/05/25 18:00) Methylprednisolone Sod Succ (Solu Medrol (07/05/25 22:00) Head Without Contrast (07/05/25 17:58) Azithromycin 500mg/ 250ml (Zithromax 50 (07/06/25 10:00) Azithromycin 500mg/ 250ml (Zithromax 50 (07/05/25 18:15) Covid19 Antigen Leslie (07/05/25 ) Rapid Influenza A&B (07/05/25 18:03) Vital Signs Date Time Temp Pulse Resp B/P (MAP) Pulse Ox O2 Delivery O2 Flow Rate FiO2 07/05/25 17:51 20 91 Nasal Cannula* 3 32 07/05/25 16:46 86 07/05/25 16:01 98.0 94 18 118/74 9 98.0 07/05/25 15:35 97 Laboratory Tests Test 07/05/25 16:12 White Blood Count 6.7 10^3/uL (4.4-10.8) Medications Medications Dose Ordered Sig/Miguel Route Start Time Stop Time Status Last Admin Dose Admin Albuterol 2.5 mg ONCE ONCE NEB 07/05/25 17:00 07/05/25 17:01 DC 07/05/25 17:51 2.5 MG Ipratropium [place] 1 mg ONCE ONCE NEB 07/05/25 17:00 07/05/25 17:01 DC 07/05/25 17:51 1 MG Assessment/Plan Assessment/Plan Acute hypoxic on chronic respiratory failure Acute on chronic diastolic heart failure (HFpEF, LVEF 55%) Probable symptomatic aortic stenosis (angina, dyspnea and syncope) Cardiorenal syndrome type 4 NSTEMI type 2 Syncope probably secondary to aortic stenosis Patient currently on oxygen therapy with nasal cannula at 4L/min Currently on IV diuretics (40 mg t.i.d.) Ordered head CT due to recent syncope (one week ago) Troponin mildly elevated (95), EKG showed normal sinus rhythm with LVH and repo larization abnormalities related to LVH, no ST-elevation, frequent PVCs. COPD exacerbation Patient currently on oxygen therapy with nasal cannula at 4L/min Ordered COVID and influenza swab Currently on azithromycin IV On bronchodilator treatment and IV steroids (methylprednisolone 40 mg IV b.i.d.) End-stage renal disease on hemodialysis (Saturday, Saturday and Saturday) -status post AV fistula Hypokalemia Nephrology consulted. Last hemodialysis session on 07/05/2025 (incomplete) Replenish very worried after repeat kalemia results Normocytic anemia probably secondary to end-stage renal disease Patient may benefit from Epogen Hypertension Gave her advice on healthy lifestyle habits Currently discontinue home medication. Patient may benefit from beta blockers due to LVH and aortic stenosis. Could be contraindicated due to multiple COPD exacerbation BPH Indicated tamsulosin History of CVA Wheelchair-bound Patient currently on aspirin and atorvastatin Ordered physical therapy sessions Goals of care discussed with patient for over 18 minutes: Full code status Discussed plan with Dr. Viveros, patient and nurses: Patient evaluated for chest pain, pending serial troponin, no need for new echocardiogram (last echocardiogram on 04/2025), on IV diuretics, IV methylprednisolone, bronchodilators and oxygen therapy. Ordered head CT, pending. Nephrology on board for hemodialysis sessions. Patient has poor prognosis. Plan discussed with: Patient, Other (Nurses) My Orders Orders - AMEYA AC RESIDENT Procedure Category Date Status Time Admit ADMIT 07/05/25 Transmitted 17:26 Code Status CODE 07/05/25 Transmitted 17:26 Acetaminophen Tablet PHA 07/05/25 Logged (Tylenol Tablet) 17:30 Complete Blood Count LAB 07/06/25 Verified 04:00 Comprehensive LAB 07/06/25 Verified Metabolic Panel 04:00 Npo (Nothing By DIET 07/05/25 Transmitted Mouth) Diet Dinner Condition: Unstable RAÚL 07/05/25 In Process 17:26 Nitroglycerin PHA 07/05/25 Logged Sublingual (Ntrostat 17:30 Morphine Sulfate PHA 07/05/25 Logged Injection 17:30 Oxygen By Nasal RT 07/05/25 Transmitted Cannula 17:26 Stat Ekg For Chest RAÚL 07/05/25 In Process Pain 17:26 Notify Of Changes [facility] 07/05/25 In Process From Base 17:26 Broadcast Operations Technician For [facility] 07/05/25 In Process 24 Hours 17:26 Emergency Dysrhythmia [facility] 07/05/25 In Process Protocol 17:26 Rhythm Strips Once [facility] 07/05/25 In Process Every Shift 17:26 (Nf) Atorvastatin PHA 07/06/25 Logged Calcium 10:00 Aspirin Tablet PHA 07/06/25 Logged 10:00 Heparin Sodium PHA 07/05/25 Logged (Porcine) 22:00 *[facility] CONS 07/05/25 Transmitted [facility] 17:33 Morphine Sulfate PHA 07/05/25 Transmitted Injection 18:00 Furosemide Injection PHA 07/05/25 Transmitted (Lasix Injection) 22:00 Furosemide Injection PHA 07/05/25 Transmitted (Lasix Injection) 18:00 Nicotine 21mg/24hr PHA 07/05/25 Transmitted (Nicoderm 21mg/24hr) 18:00 Nicotine 21mg/24hr PHA 07/06/25 Transmitted (Nicoderm 21mg/24hr) 10:00 Vitamin D, 25-Hydroxy LAB 07/05/25 Transmitted 17:58 Vitamin B12 LAB 07/05/25 Transmitted 17:58 Urinalysis LAB 07/05/25 Transmitted 17:58 Thyroid Stimulating LAB 07/05/25 Transmitted Hormone 17:58 PTPTT LAB 07/05/25 Transmitted 17:58 Phosphorus LAB 07/05/25 Transmitted 17:58 Magnesium LAB 07/05/25 Transmitted 17:58 Lipid Panel LAB 07/05/25 Transmitted 17:58 Lactic Acid W/ Reflex LAB 07/05/25 Transmitted Order 17:58 Hemoglobin A1c LAB 07/05/25 Transmitted 17:58 Drug Screen LAB 07/05/25 Transmitted 17:58 Levalbuterol Hcl PHA 07/05/25 Transmitted (Xopenex Medneb) 18:00 Ipratropium Medneb PHA 07/05/25 Transmitted (Atrovent Medneb) 18:00 Methylprednisolone PHA 07/05/25 Transmitted Sod Succ (Solu Medrol 22:[address] 07/05/25 Logged 17:58 Azithromycin 500mg/ PHA 07/06/25 Transmitted 250ml (Zithromax 50 10:00 Azithromycin 500mg/ PHA 07/05/25 Transmitted 250ml (Zithromax 50 18:15 Covid19 Antigen Leslie LAB 07/05/25 Transmitted Rapid Influenza A&B LAB 07/05/25 Transmitted 18:03 Date of Service: Jul 05, 2025 Billing Provider: MILENA VIVEROS MD Common Visit Codes: [id number] INP/OBS CARE (HIGH) AMEYA AC RESIDENT Jul 05, 2025 18:22 MILENA VIVEROS MD Jul 05, 2025 21:53
[2025-07-05 18:56] LABS: INR 1.01 (0.9-1.15); Partial Thromboplastin Time 33.5 SEC (24.5-34.5); Prothrombin Time 10.7 sec (9.3-11.8)
--- NOTE | 2025-07-05 19:08 | DVH ---
CLINICAL HISTORY: syncope TECHNIQUE: Helical scanning was performed of the head from the skull base to the vertex. Multiplanar reconstructions were performed. This exam was performed according to our departmental dose optimizat ion program. Up-to-date CT equipment and radiation dose reduction techniques are utilized as appropri ate. CTDI 53.6 DLP 857 COMPARISON: CT HEAD WITHOUT CONTRAST on DOS: 04/30/25, CT ORBITS WO CONTRAST on DOS: 09/07/23, CT ORBI TS WO CONTRAST on DOS: 09/06/23 FINDINGS: There is no evidence for acute intracranial hemorrhage, acute ischemic changes, mass, mass effect, or extra-axial fluid collection. There is no hydrocephalus or midline shift. There is no effacement of the cerebral sulci and basal subarachnoid cisterns. The yoon-white matter differentiation is well nish ntained. The imaged paranasal sinuses demonstrate mild scattered multiple periosteal thickening. There is a sm all left mastoid effusion. There is s mild brain volume loss and chronic small vessel schema change. IMPRESSION: NO ACUTE INTRACRANIAL ABNORMALITY SEEN. SMALL LEFT MASTOID EFFUSION.
[2025-07-05 19:56] LABS: Triglycerides 57.0 mg/dL (< 150)
[2025-07-05 19:57] LABS: Magnesium 2.0 mg/dL (1.6-2.6)
[2025-07-05 19:58] LABS: Cholesterol 119.0 mg/dL (< 200)
[2025-07-05 20:06] LABS: HDL Cholesterol 36.0 mg/dL (40-59)
[2025-07-05 21:14] VITALS: PULSE 88; RESP 18; O2SAT 99
[2025-07-05] MEDS: MORPHINE SULFATE INJ 2 MG/ml SYRG IV PRN (21:34)
[2025-07-05] MEDS: methylPREDNISolone SOD SUCC 125 MG/2 ML VL IV ONE (21:36)
[2025-07-05] MEDS: NICOTINE 21MG/24 HR TOPICAL PATCH TD ONE (21:38)
[2025-07-05 21:41] LABS: Base Excess -0.6 mmol/L (-2.0-3.0)
[2025-07-05] MEDS: AZITHROMYCIN 500MG/ 250ML 250 ML IV ONE (21:41)
[2025-07-05] MEDS: POTASSIUM CHL 20 Meq TABLET PO ONE (21:58)
[2025-07-05] MEDS: methylPREDNISolone SOD SUCC 40 MG/ML VL IV SCH (22:00)
[2025-07-05] MEDS: FUROSEMIDE 40 MG/4 ML VIAL IV SCH (22:00)
[2025-07-05] MEDS: FUROSEMIDE 40 MG/4 ML VIAL IV ONE (22:00)
[2025-07-05] MEDS: HEPARIN SODIUM (PORCINE) 5000 UNITS/ML 1ML VIAL SC SCH (22:07)
[2025-07-05 23:06] LABS: COVID19 ANTIGEN SOFIA FIA NEGATIVE (NEGATIVE)
--- NOTE | 2025-07-05 23:39 | ECG ---
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
[2025-07-06] VITALS (15 sets, daily range): BP systolic 141–197; BP diastolic 66–86; PULSE 77–119; RESP 16–24; TEMP 97.5–99; O2SAT 93–99
[2025-07-06 03:08] LABS: Urine Protein, UAD 1+ (Negative); Urine WBC Clumps PRESENT /hpf (None Seen)
[2025-07-06 03:49] LABS: Amphetamine Screen, Urine Pos (NEGATIVE); Benzodiazephine Screen, Urine Neg (NEGATIVE)
[2025-07-06 03:51] LABS: Barbiturate Scree,Urine Neg (NEGATIVE); Cannabinoid Screen, Urine Neg (NEGATIVE); Cocaine Screen, Urine Neg (NEGATIVE); Opiate Scree,Urine Neg (NEGATIVE); Phencyclidine Screen, Urine Neg (NEGATIVE)
[2025-07-06 07:36] LABS: Alkaline Phosphatase 64 U/L (46-116); Anion Gap 13 (5-15); BUN/Creatinine Ratio 4.8 (10.0-20.0); Calcium 8.9 mg/dL (8.7-10.4); Carbon Dioxide 22 mmol/L (20-31); Chloride 102 mmol/L (98-107); Hematocrit 33.3 % (41.0-53.0); Hemoglobin 10.7 g/dL (13.5-17.5); Mean Corpuscular Hemoglobin 27.1 pg (28.0-32.0); Mean Corpuscular Volume 84.1 fL (80.0-100.0); Nucleated Red Blood Cells % 0.0 %; Potassium 4.4 mmol/L (3.5-5.1); Sodium 137 mmol/L (136-145); Total Protein 7.1 g/dL (5.7-8.2)
[2025-07-06 07:37] LABS: Albumin 3.8 g/dL (3.2-4.8)
[2025-07-06 07:38] LABS: Alanine Aminotransferase < 9 U/L (7-40); Bilirubin, Total < 0.2 mg/dL (0.2-1.0); Blood Urea Nitrogen 31 mg/dL (9-23); Glucose 142 mg/dL (74-106)
[2025-07-06] MEDS ORDERED: ACETAMINOPHEN 500 MG TAB or CAP PO PRN (08:00)
[2025-07-06] MEDS: ACETAMINOPHEN 500 MG TAB or CAP PO ONE (08:00)
[2025-07-06] MEDS: ATORVASTATIN 20 MG TAB PO SCH (09:28)
[2025-07-06] MEDS: NICOTINE 21MG/24 HR TOPICAL PATCH TD SCH (09:30)
--- NOTE | 2025-07-06 09:47 | MEDREC ---
[facility] Intervention Section I [facility] Intervention: Review courses of therapy (DUE TO PROLONG QTc > 500 PLEASE CONSIDER SWITCHING AZITHROMYCIN TO DOXYCYCLINE ) IRVIN LYNN PHARMACIST Jul 06, 2025 09:47
--- NOTE | 2025-07-06 14:27 | DVHPN2 ---
Subjective c/o left wrist pain due to a fall Changes from previous H/P or p: Changes Objective Vitals Vital Signs Date Time Temp Pulse Resp B/P (MAP) Pulse Ox O2 Delivery O2 Flow Rate FiO2 07/06/25 14:11 86 17 148/79 07/06/25 12:17 99 07/06/25 12:11 Nasal Cannula 2.0 07/06/25 12:11 28 07/06/25 09:00 97.5 97.5 Intake/Output Intake and Output 07/06/25 06:59 Intake Total 300 ml Balance 300 ml Intake Oral 300 ml General Appearance: Alert, Oriented X3, Cooperative, No acute distress Extremities: Other (trace edema B+1) Medications Current Medications Medications Dose Ordered Sig/Miguel Route Start Time Stop Time Status Last Admin Dose Admin Acetaminophen 325 mg Q4HP PRN PO 07/05/25 17:30 Cancel Nitroglycerin 0.4 mg Q5MINP PRN SL 07/05/25 17:30 Morphine Sulfate 2 mg Q30M PRN IV 07/05/25 17:30 Atorvastatin Calcium 40 mg DAILY PO 07/06/25 10:00 07/06/25 09:28 40 MG Aspirin 81 mg DAILY PO 07/06/25 10:00 07/06/25 09:28 81 MG Heparin Sodium (Porcine) 5,000 units Q12HR SC 07/05/25 22:00 07/06/25 09:39 5,000 UNITS Morphine Sulfate 2 mg Q4HPRN PRN IV 07/05/25 18:00 07/06/25 14:11 2 MG Furosemide 40 mg TID IV 07/05/25 22:00 07/06/25 09:28 40 MG Nicotine 1 patch DAILY TD 07/06/25 10:00 07/06/25 09:30 1 PATCH Levalbuterol HCl 0.625 mg Q6HR NEB 07/05/25 18:00 07/06/25 12:06 0.625 MG Ipratropium [place] 0.5 mg Q6HWA NEB 07/05/25 18:00 07/06/25 12:06 0.5 MG Methylprednisolone Sodium Succinate 40 mg BID IV 07/05/25 22:00 07/06/25 09:27 40 MG Azithromycin 250 ml @ 125 mls/hr DAILY@1700 IV 07/06/25 17:00 Tamsulosin HCl 0.4 mg QPM PO 07/06/25 18:00 Acetaminophen 500 mg Q8HP PRN PO 07/06/25 08:00 Laboratory Results Laboratory Tests 07/06/25 06:16 Chemistry Test 07/05/25 16:12 07/06/25 06:16 Albumin 3.6 g/dL (3.2-4.8) 3.8 g/dL (3.2-4.8) Calcium Level 8.4 mg/dL (8.7-10.4) L 8.9 mg/dL (8.7-10.4) Magnesium Level 2.0 mg/dL (1.6-2.6) Phosphorus Level 4.5 mg/dL (2.4-5.1) Total Protein 6.7 g/dL (5.7-8.2) 7.1 g/dL (5.7-8.2) Coagulation Test 07/05/25 16:12 Prothrombin Time 10.7 sec (9.3-11.8) Prothrombin Time INR 1.01 (0.9-1.15) Activated Partial Thromboplast Time 33.5 SEC (24.5-34.5) Lipid panel Test 07/05/25 16:12 Cholesterol Level 119 mg/dL (< 200) HDL Cholesterol 36 mg/dL (40-59) L Triglycerides Level 57 mg/dL (< 150) Cardiac Markers Test 07/05/25 16:12 B-Type Natriuretic Peptide 3185.01 pg/mL (0-100) LFT Test 07/05/25 16:12 07/06/25 06:16 Alanine Aminotransferase (ALT) < 9 U/L (7-40) < 9 U/L (7-40) Alkaline Phosphatase 72 U/L (46-116) 64 U/L (46-116) Aspartate Amino Transferase (AST) 17 U/L (13-40) 21 U/L (13-40) Total Bilirubin < 0.2 mg/dL (0.2-1.0) L < 0.2 mg/dL (0.2-1.0) L HgA1c, TSH Test 07/05/25 16:12 07/05/25 18:28 Thyroid Stimulating Hormone (TSH) 0.36 uIU/mL (0.55-4.78) L Hemoglobin A1c 4.6 % A1C (<5.7) Urinalysis Test 07/06/25 02:01 Urine Color Light-yellow (Yellow) Urine Clarity Turbid (Clear) H Urine pH 7.5 (5.0-9.0) Urine Specific [place] 1.009 (1.001-1.035) Urine Protein 1+ (Negative) H Urine Ketones Negative (Negative) Urine Blood Negative /uL (Negative) Urine Nitrite Negative (Negative) Urine Bilirubin Negative (Negative) Urine Urobilinogen Normal mg/dL (Negative) Urine Leukocyte Esterase 3+ /uL (Negative) Urine RBC 7 /hpf (0 - 3) Urine WBC Clumps Present /hpf (None Seen) Urine Microscopic WBC 422 /HPF (0-3) H Urine Squamous Epithelial Cells Few /hpf (<5) Urine Bacteria None seen /hpf (None Seen) Urine Glucose Trace mg/dL (Normal) Blood Gas Results Test 07/05/25 21:36 Arterial Blood pH 7.471 (7.350-7.450) FiO2 % 32.0 Assessment/Plan Assessment/Plan Acute hypoxic respiratory failure Chronic respiratory failure on home O2 COPD ESRD Left wrist trauma Chronic anemia of CKD HTN BPH PLAN: X-Ray left wrist HD per nephrology O2 Doxycycline IV Lasix Monitor closely Plan discussed with: Patient Date of Service: Jul 06, 2025 Billing Provider: KILO MAHER MD Common Visit Codes: NOT BILLABLE KILO MAHER MD Jul 06, 2025 14:27
[2025-07-06] MEDS: DOXYCYCLINE 100MG/100ML 100 ML IV SCH (14:30)
--- NOTE | 2025-07-06 15:07 | DVH ---
INDICATION: fall TECHNIQUE: 4 radiographic views of the left wrist were obtained. 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 There is no evidence of acute fracture or dislocation.The visualized joint space is well maintained.The alignment is anatomical.The surrounding soft tissues are unremarkable.There is no bony lesions or erosions identified. IMPRESSION: No acute fracture.
[2025-07-06] MEDS: diphenhdrAMINE HCL 50 MG/1 ML VL IV ONE (16:18)
[2025-07-06] MEDS: MORPHINE SULFATE INJ 2 MG/ml SYRG IV PRN (16:29)
[2025-07-06] MEDS ORDERED: AZITHROMYCIN 500MG/ 250ML 250 ML IV SCH (17:00)
[2025-07-06] MEDS: TAMSULOSIN HYDROCHLORIDE 0.4 MG CAP PO SCH (18:34)
--- NOTE | 2025-07-06 19:12 | DVHINCON2 ---
Date of service: Jul 06, 2025 Reason for Consultation ESRD History of Present Illness 70 years old male with past medical history of ESRD on dialysis, hypertension, congestive heart failure with preserved ejection fraction, aortic stenosis, COPD on home O2, CVA, BPH, anemia, presented with chief complaints of chest pain and shortness of breath also has wrist pain Surgical history multiple coronary angiograms, finger surgery, hernia repair Past Medical History As per HPI Past Surgical History As documented in HPI Allergies: Coded Allergies: NO KNOWN ALLERGIES (Unverified , 10/17/22) Home Meds Active Scripts Atorvastatin Calcium (ATORVASTATIN CALCIUM) 40 Mg Tab, 40 MG PO DAILY for 30 Days, #30 TAB 0 Refills Prov:RANJAN SZYMANSKI RESIDENT 11/10/24 Reported Medications Sertraline HCl (Sertraline HCl) 50 Mg Tab, 50 MG PO DAILY, TAB 11/06/24 Clonidine Hydrochloride (Clonidine Hydrochloride) 0.3 Mg Tab, 0.3 MG PO TID, TAB 11/06/24 Sevelamer Carbonate (Renvela) 800 Mg Tab, 2 TAB PO TIDWM for 90 Days, #540 10/27/24 Alprazolam (Alprazolam) 1 Mg Tab, 1 TAB PO DAILYPRN PRN for ANXIETY for 30 Days, #30 10/27/24 Nifedipine (Nifedipine Er) 60 Mg Tab, 1 TAB PO DAILY 01/14/24 Tamsulosin Hcl (Tamsulosin Hcl) 0.4 Mg Cap, 1 CAP PO DAILY 01/14/24 Hydralazine Hcl (Hydralazine Hcl) 100 Mg Tab, 1 TAB PO DAILY for 30 Days, #30 01/14/24 Current Medications Current Medications Medications (Trade) Dose Ordered Sig/Miguel Route PRN Reason Start Time Stop Time Status Last Admin Sertraline HCl (Zoloft) 50 mg DAILY PO 07/08/25 21:00 07/09/25 09:36 Methylprednisolone Sodium Succinate (Solu Medrol) 40 mg Q12H IV 07/08/25 21:00 07/09/25 09:37 Lactulose 30 ml DAILY PO 07/08/25 20:00 07/09/25 09:36 Carvedilol (Coreg Tablet) 3.125 mg Q12HR PO 07/09/25 21:00 Nifedipine (Procardia Xl (Time-Release)) 60 mg DAILY PO 07/10/25 10:00 Family History: Arthritis G8 MOTHER Cardiovascular disease G8 FATHER Diabetes during Diabetes mellitus G8 MOTHER G8 FATHER Review of Systems As documented in HPI H&P Exam Vital Signs/I&O Vital Sign Date Time Temp Pulse Resp B/P (MAP) Pulse Ox O2 Delivery O2 Flow Rate FiO2 07/09/25 14:22 66 19 216/97 07/09/25 13:00 97.8 96 97.8 07/09/25 06:11 Room Air 0.0 07/09/25 06:11 N/A Intake and Output 07/08/25 07/09/25 19:00 07:00 Intake Total 824 ml 700 ml Balance 824 ml 700 ml Intake Oral 824 ml 700 ml # Voids 3 3 Labs/Diagnostic Data Labs/Diagnostic Data Laboratory Tests Test 07/09/25 05:31 07/08/25 05:01 07/07/25 05:20 07/06/25 06:16 Range/Units Sodium Level 136 138 138 137 136-145 mmol/L Potassium Level 5.4 H 5.0 4.4 4.4 3.5-5.1 mmol/L Chloride Level 96 L 97 L 97 L 102 98-107 mmol/L Carbon Dioxide Level 25 26 27 22 20-31 mmol/L Anion Gap 15 15 14 13 5-15 Blood Urea Nitrogen 51 H 55 #H 31 H 31 H 9-23 mg/dL Creatinine 5.90 H 6.48 H 4.97 H 6.52 H 0.700-1.30 mg/dL Glomerular Filtration Rate Calc 10 9 12 9 >90 mL/min BUN/Creatinine Ratio 8.6 L 8.5 L 6.2 L 4.8 L 10.0-20.0 Serum Glucose 95 104 137 H 142 H 74-106 mg/dL Calcium Level 8.5 L 8.8 8.6 L 8.9 8.7-10.4 mg/dL Hepatitis B Surface Antigen Negative Negative White Blood Count 4.8 # 4.4-10.8 10^3/uL Red Blood Count 3.96 L 4.5-5.90 10^6/uL Hemoglobin 10.7 L 13.5-17.5 g/dL Hematocrit 33.3 L 41.0-53.0 % Mean Corpuscular Volume 84.1 80.0-100.0 fL Mean Corpuscular Hemoglobin 27.1 L 28.0-32.0 pg Mean Corpuscular Hemoglobin Concent 32.2 32.0-36.0 g/dL Red Cell Distribution Width 16.1 H 11.8-14.3 % Platelet Count 339 140-450 10^3/uL Mean Platelet Volume 7.9 6.9-10.8 fL Neutrophils (%) (Auto) 94.6 H 37.0-80.0 % Lymphocytes (%) (Auto) 4.2 L 10.0-50.0 % Monocytes (%) (Auto) 1.0 0.0-12.0 % Eosinophils (%) (Auto) 0.1 0.0-7.0 % Basophils (%) (Auto) 0.1 0.0-2.0 % Neutrophils # (Auto) 4.6 1.6-8.6 10 ^3/uL Lymphocytes # (Auto) 0.2 L 0.4-5.4 10 ^3/uL Monocytes # (Auto) 0 0-1.3 10 ^3/uL Eosinophils # (Auto) 0 0-0.8 10 ^3/uL Basophils # (Auto) 0 0-0.2 10 ^3/uL Nucleated Red Blood Cells 0.0 % Total Bilirubin < 0.2 L 0.2-1.0 mg/dL Aspartate Amino Transferase (AST) 21 13-40 U/L Alanine Aminotransferase (ALT) < 9 7-40 U/L Alkaline Phosphatase 64 46-116 U/L Total Protein 7.1 5.7-8.2 g/dL Albumin 3.8 3.2-4.8 g/dL Test 07/06/25 02:01 07/05/25 21:36 07/05/25 21:04 07/05/25 21:03 Range/Units Urine Color Light-yellow Yellow Urine Clarity Turbid H Clear Urine pH 7.5 5.0-9.0 Urine Specific [place] 1.009 1.001-1.035 Urine Protein 1+ H Negative Urine Ketones Negative Negative Urine Blood Negative Negative /uL Urine Nitrite Negative Negative Urine Bilirubin Negative Negative Urine Urobilinogen Normal Negative mg/dL Urine Leukocyte Esterase 3+ Negative /uL Urine RBC 7 0 - 3 /hpf Urine WBC Clumps Present None Seen /hpf Urine Microscopic WBC 422 H 0-3 /HPF Urine Squamous Epithelial Cells Few <5 /hpf Urine Bacteria None seen None Seen /hpf Urine Glucose Trace Normal mg/dL Urine Opiates Screen Neg NEGATIVE Urine Fentanyl Screen Neg NEGATIVE Urine Barbiturates Screen Neg NEGATIVE Urine Phencyclidine Screen Neg NEGATIVE Urine Amphetamines Screen Pos NEGATIVE Urine Benzodiazepines Screen Neg NEGATIVE Urine Cocaine Screen Neg NEGATIVE Urine Cannabinoids Screen Neg NEGATIVE Blood Gas Specimen Type Arterial Blood Gas Sample Site Right radial Blood Gas Patient Temperature 37.0 Arterial Blood Date Drawn [id number] Arterial Blood pH 7.471 H 7.350-7.450 Arterial Blood Partial Pressure CO2 31.4 L 35.0-48.0 mmHg Arterial Blood Partial Pressure O2 94.6 83.0-108.0 mmHg Arterial Blood HCO3 22.4 21.0-28.0 mmol/L Arterial Blood Oxygen Saturation 96.9 94.0-98.0 % Arterial Blood Base Excess -0.6 -2.0-3.0 mmol/L Arterial Blood Oxyhemoglobin 95.7 94.0-98.0 % Arterial Blood Carboxyhemoglobin 1.0 0.5-1.5 % Arterial Blood Methemoglobin 0.2 0.0-1.5 % Daniel Test Yes Blood Gas Total Hemoglobin 11.40 L 13.5-17.5 g/dL Blood Gas Liter Flow 3.00 Blood Gas Modality Nasal cannula FiO2 % 32.0 Troponin I High Sensitivity 92 *H </=54 ng/L Influenza Type A Antigen Negative Negative Influenza Type B Antigen Negative Negative SARS-CoV-2 Antigen (Rapid) Negative NEGATIVE Test 07/05/25 18:28 07/05/25 18:20 07/05/25 16:12 Range/Units Hemoglobin A1c 4.6 <5.7 % A1C Troponin I High Sensitivity 99 *H 95 *H </=54 ng/L Lactic Acid Level 0.9 0.4-2.0 mmol/L White Blood Count 6.7 4.4-10.8 10^3/uL Red Blood Count 3.76 L 4.5-5.90 10^6/uL Hemoglobin 10.0 L 13.5-17.5 g/dL Hematocrit 30.7 L 41.0-53.0 % Mean Corpuscular Volume 81.5 80.0-100.0 fL Mean Corpuscular Hemoglobin 26.6 L 28.0-32.0 pg Mean Corpuscular Hemoglobin Concent 32.6 32.0-36.0 g/dL Red Cell Distribution Width 16.2 H 11.8-14.3 % Platelet Count 328 140-450 10^3/uL Mean Platelet Volume 7.9 6.9-10.8 fL Neutrophils (%) (Auto) 84.0 H 37.0-80.0 % Lymphocytes (%) (Auto) 6.8 L 10.0-50.0 % Monocytes (%) (Auto) 4.9 0.0-12.0 % Eosinophils (%) (Auto) 4.0 0.0-7.0 % Basophils (%) (Auto) 0.3 0.0-2.0 % Neutrophils # (Auto) 5.6 1.6-8.6 10 ^3/uL Lymphocytes # (Auto) 0.5 0.4-5.4 10 ^3/uL Monocytes # (Auto) 0.3 0-1.3 10 ^3/uL Eosinophils # (Auto) 0.3 0-0.8 10 ^3/uL Basophils # (Auto) 0 0-0.2 10 ^3/uL Nucleated Red Blood Cells 0.1 % Prothrombin Time 10.7 9.3-11.8 sec Prothrombin Time INR 1.01 0.9-1.15 Activated Partial Thromboplast Time 33.5 24.5-34.5 SEC Sodium Level 139 136-145 mmol/L Potassium Level 3.2 L 3.5-5.1 mmol/L Chloride Level 102 98-107 mmol/L Carbon Dioxide Level 24 20-31 mmol/L Anion Gap 13 5-15 Blood Urea Nitrogen 31 H 9-23 mg/dL Creatinine 6.33 H 0.700-1.30 mg/dL Glomerular Filtration Rate Calc 9 >90 mL/min BUN/Creatinine Ratio 4.9 L 10.0-20.0 Serum Glucose 125 H 74-106 mg/dL Calcium Level 8.4 L 8.7-10.4 mg/dL Phosphorus Level 4.5 2.4-5.1 mg/dL Magnesium Level 2.0 1.6-2.6 mg/dL Total Bilirubin < 0.2 L 0.2-1.0 mg/dL Aspartate Amino Transferase (AST) 17 13-40 U/L Alanine Aminotransferase (ALT) < 9 7-40 U/L Alkaline Phosphatase 72 46-116 U/L B-Type Natriuretic Peptide 3185.01 0-100 pg/mL Total Protein 6.7 5.7-8.2 g/dL Albumin 3.6 3.2-4.8 g/dL Triglycerides Level 57 < 150 mg/dL Cholesterol Level 119 < 200 mg/dL LDL Cholesterol 73 < 100 mg/dL HDL Cholesterol 36 L 40-59 mg/dL Vitamin B12 Level 275 211-911 pg/mL Vitamin D 25-Hydroxy 42.6 30.0-100 ng/mL Thyroid Stimulating Hormone (TSH) 0.36 L 0.55-4.78 uIU/mL Microbiology Date/Time Source Procedure Growth Status 07/06/25 06:00 Nose MRSA Screen - Final Methicillin Resistant S.aureus Complete Assessment ESRD on hemodialysis Acute on chronic hypoxic respiratory failure pulmonary edema /pna Aortic stenosis Anemia Recommendations Hemodialysis today Epogen with dialysis Renally dose antibiotics to GFR dialysis dosing We will follow closely Plan discussed with: Patient RIVER MCKINNON MD Jul 06, 2025 19:12
[2025-07-06] MEDS: LABETALOL HCL 20 MG/4 ML VL IV ONE (21:09)
[2025-07-07] VITALS (16 sets, daily range): BP systolic 120–205; BP diastolic 78–103; PULSE 81–98; RESP 16–19; TEMP 36.5; O2SAT 92–100
[2025-07-07 06:38] LABS: Potassium 4.4 mmol/L (3.5-5.1); Sodium 138 mmol/L (136-145)
[2025-07-07 06:41] LABS: Anion Gap 14 (5-15); Carbon Dioxide 27 mmol/L (20-31)
[2025-07-07 06:46] LABS: BUN/Creatinine Ratio 6.2 (10.0-20.0)
[2025-07-07 06:51] LABS: Blood Urea Nitrogen 31 mg/dL (9-23); Calcium 8.6 mg/dL (8.7-10.4); Chloride 97 mmol/L (98-107); Glucose 137 mg/dL (74-106)
--- NOTE | 2025-07-07 08:20 | DVHDS2 ---
Discharge Summary Date of Admission Jul 05, 2025 at 17:26 Date of Discharge: Jul 07, 2025 Labs/Diagnostic Data: Laboratory Results Test 07/07/25 05:20 07/06/25 06:16 07/06/25 02:01 07/05/25 21:36 Sodium Level 138 mmol/L (136-145) Potassium Level 4.4 mmol/L (3.5-5.1) Chloride Level 97 mmol/L (98-107) Carbon Dioxide Level 27 mmol/L (20-31) Anion Gap 14 (5-15) Blood Urea Nitrogen 31 mg/dL (9-23) Creatinine 4.97 mg/dL (0.700-1.30) Glomerular Filtration Rate Calc 12 mL/min (>90) BUN/Creatinine Ratio 6.2 (10.0-20.0) Serum Glucose 137 mg/dL (74-106) Calcium Level 8.6 mg/dL (8.7-10.4) White Blood Count 4.8 10^3/uL (4.4-10.8) Red Blood Count 3.96 10^6/uL (4.5-5.90) Hemoglobin 10.7 g/dL (13.5-17.5) Hematocrit 33.3 % (41.0-53.0) Mean Corpuscular Volume 84.1 fL (80.0-100.0) Mean Corpuscular Hemoglobin 27.1 pg (28.0-32.0) Mean Corpuscular Hemoglobin Concent 32.2 g/dL (32.0-36.0) Red Cell Distribution Width 16.1 % (11.8-14.3) Platelet Count 339 10^3/uL (140-450) Mean Platelet Volume 7.9 fL (6.9-10.8) Neutrophils (%) (Auto) 94.6 % (37.0-80.0) Lymphocytes (%) (Auto) 4.2 % (10.0-50.0) Monocytes (%) (Auto) 1.0 % (0.0-12.0) Eosinophils (%) (Auto) 0.1 % (0.0-7.0) Basophils (%) (Auto) 0.1 % (0.0-2.0) Neutrophils # (Auto) 4.6 10 ^3/uL (1.6-8.6) Lymphocytes # (Auto) 0.2 10 ^3/uL (0.4-5.4) Monocytes # (Auto) 0 10 ^3/uL (0-1.3) Eosinophils # (Auto) 0 10 ^3/uL (0-0.8) Basophils # (Auto) 0 10 ^3/uL (0-0.2) Nucleated Red Blood Cells 0.0 % Total Bilirubin < 0.2 mg/dL (0.2-1.0) Aspartate Amino Transferase (AST) 21 U/L (13-40) Alanine Aminotransferase (ALT) < 9 U/L (7-40) Alkaline Phosphatase 64 U/L (46-116) Total Protein 7.1 g/dL (5.7-8.2) Albumin 3.8 g/dL (3.2-4.8) Urine Color Light-yellow (Yellow) Urine Clarity Turbid (Clear) Urine pH 7.5 (5.0-9.0) Urine Specific [place] 1.009 (1.001-1.035) Urine Protein 1+ (Negative) Urine Ketones Negative (Negative) Urine Blood Negative /uL (Negative) Urine Nitrite Negative (Negative) Urine Bilirubin Negative (Negative) Urine Urobilinogen Normal mg/dL (Negative) Urine Leukocyte Esterase 3+ /uL (Negative) Urine RBC 7 /hpf (0 - 3) Urine WBC Clumps Present /hpf (None Seen) Urine Microscopic WBC 422 /HPF (0-3) Urine Squamous Epithelial Cells Few /hpf (<5) Urine Bacteria None seen /hpf (None Seen) Urine Glucose Trace mg/dL (Normal) Urine Opiates Screen Neg (NEGATIVE) Urine Fentanyl Screen Neg (NEGATIVE) Urine Barbiturates Screen Neg (NEGATIVE) Urine Phencyclidine Screen Neg (NEGATIVE) Urine Amphetamines Screen Pos (NEGATIVE) Urine Benzodiazepines Screen Neg (NEGATIVE) Urine Cocaine Screen Neg (NEGATIVE) Urine Cannabinoids Screen Neg (NEGATIVE) Blood Gas Specimen Type Arterial Blood Gas Sample Site Right radial Blood Gas Patient Temperature 37.0 Arterial Blood Date Drawn [id number] Arterial Blood pH 7.471 (7.350-7.450) Arterial Blood Partial Pressure CO2 31.4 mmHg (35.0-48.0) Arterial Blood Partial Pressure O2 94.6 mmHg (83.0-108.0) Arterial Blood HCO3 22.4 mmol/L (21.0-28.0) Arterial Blood Oxygen Saturation 96.9 % (94.0-98.0) Arterial Blood Base Excess -0.6 mmol/L (-2.0-3.0) Arterial Blood Oxyhemoglobin 95.7 % (94.0-98.0) Arterial Blood Carboxyhemoglobin 1.0 % (0.5-1.5) Arterial Blood Methemoglobin 0.2 % (0.0-1.5) Daniel Test Yes Blood Gas Total Hemoglobin 11.40 g/dL (13.5-17.5) Blood Gas Liter Flow 3.00 Blood Gas Modality Nasal cannula FiO2 % 32.0 Test 07/05/25 21:04 07/05/25 21:03 07/05/25 18:28 07/05/25 18:20 Troponin I High Sensitivity 92 ng/L (</=54) Influenza Type A Antigen Negative (Negative) Influenza Type B Antigen Negative (Negative) SARS-CoV-2 Antigen (Rapid) Negative (NEGATIVE) Hemoglobin A1c 4.6 % A1C (<5.7) Lactic Acid Level 0.9 mmol/L (0.4-2.0) Test 07/05/25 16:12 Prothrombin Time 10.7 sec (9.3-11.8) Prothrombin Time INR 1.01 (0.9-1.15) Activated Partial Thromboplast Time 33.5 SEC (24.5-34.5) Phosphorus Level 4.5 mg/dL (2.4-5.1) Magnesium Level 2.0 mg/dL (1.6-2.6) B-Type Natriuretic Peptide 3185.01 pg/mL (0-100) Triglycerides Level 57 mg/dL (< 150) Cholesterol Level 119 mg/dL (< 200) LDL Cholesterol 73 mg/dL (< 100) HDL Cholesterol 36 mg/dL (40-59) Vitamin B12 Level 275 pg/mL (211-911) Vitamin D 25-Hydroxy 42.6 ng/mL (30.0-100) Thyroid Stimulating Hormone (TSH) 0.36 uIU/mL (0.55-4.78) Other Laboratory Tests 07/07/25 05:20 07/06/25 06:16 Brief Hx & Hospital Course: Final diagnoses: Acute hypoxic respiratory failure Chronic respiratory failure on home O2 COPD ESRD Left wrist trauma no fracture Chronic anemia of CKD HTN BPH 70-year-old male who was admitted for chest pain and was ruled out for myocardial infarction He had fluid overload in his lungs He was dialyzed yesterday successfully and he is feeling better He said he fell and injured his wrist and therefore we did an x-ray which was negative for any fracture He is asymptomatic now He can be discharged home to continue same home medications and follow up with the hemodialysis as scheduled Condition at Discharge: Stable Final Diagnosis/Problems List Acute hypoxic respiratory failure Chronic respiratory failure on home O2 COPD ESRD Left wrist trauma Chronic anemia of CKD HTN BPH Discharge Disposition: Home SNF Discharge Will this Physician continue t: No Discharge Instruct/Medications Scheduled Atorvastatin Calcium (Atorvastatin Calcium), 40 MG PO DAILY Clonidine Hydrochloride (Clonidine Hydrochloride), 0.3 MG PO TID, (Reported) Hydralazine Hcl (Hydralazine Hcl), 1 TAB PO DAILY, (Reported) Nifedipine (Nifedipine Er), 1 TAB PO DAILY, (Reported) Sertraline HCl (Sertraline HCl), 50 MG PO DAILY, (Reported) Sevelamer Carbonate (Renvela), 2 TAB PO TIDWM, (Reported) Tamsulosin Hcl (Tamsulosin Hcl), 1 CAP PO DAILY, (Reported) Scheduled PRN Alprazolam (Alprazolam), 1 TAB PO DAILYPRN PRN for ANXIETY, (Reported) Discharge Statement: "Patient was advised to return to the ER or call 911 if any headaches, dizziness, shortness of breath, chest pain, abdominal pain, bleeding, fevers, or worsening of medical condition. Patient was counseled about treatment plan, medications, possible side effects, patientverbalized understanding. All questions were answered to the best of my ability. This discharge took greater then 30 minutes in planning, reviewing documentation, counseling the patient, and discussing with other team members." ASSESSMENT ASSESSMENT Assessment Date of Service: Jul 07, 2025 Billing Provider: KILO MAHER MD Common Visit Codes: NOT BILLABLE KILO MAHER MD Jul 07, 2025 08:20
[2025-07-07] MEDS: hydrALAZINE HCL 20 MG/ML VL IV ONE (12:38)
[2025-07-07] MEDS ORDERED: ALPRAZolam 0.25 MG TAB PO PRN (13:15)
[2025-07-07] MEDS: LACTULOSE 20Gm/30ML SOLN PO ONE (13:27)
[2025-07-07] MEDS: DOCUSATE SOD 100 MG CAP PO ONE (13:27)
[2025-07-07] MEDS ORDERED: diphenhdrAMINE HCL 50 MG/1 ML VL IV PRN (17:00)
[2025-07-07] MEDS: diphenhdrAMINE HCL 50 MG/1 ML VL IV ONE (17:12)
[2025-07-07] MEDS: FAMOTIDINE (10MG/ML) 2ML VL IV ONE (17:13)
[2025-07-07] MEDS: methylPREDNISolone SOD SUCC 40 MG/ML VL IV ONE (17:13)
[2025-07-07] MEDS: hydrALAZINE HCL 20 MG/ML VL IV PRN (17:15)
[2025-07-07] MEDS: TAMSULOSIN HYDROCHLORIDE 0.4 MG CAP PO SCH (18:43)
[2025-07-07] MEDS: SEVELAMER 800 MG TAB PO SCH (18:44)
--- NOTE | 2025-07-07 19:19 | DVHPN2 ---
Progress Note Date Seen: Jul 07, 2025 Medical Necessity Reason Pt with a Central, PICC or Fol: No Subjective Patient reports: No new complaints Review of Systems: Deferred Objective vital signs Vital Sign Date Time Temp Pulse Resp B/P (MAP) Pulse Ox O2 Delivery O2 Flow Rate FiO2 07/07/25 19:04 85 20 194/82 07/07/25 16:49 97.5 95 97.5 07/07/25 12:19 3.0 32 07/07/25 11:55 Nasal Cannula* Total Intake and Output 07/06/25 07/06/25 07/07/25 15:00 23:00 07:00 Intake Total 985 ml 600 ml Balance 985 ml 600 ml medications Current Medications Medications Dose Ordered Sig/Miguel Route Start Time Stop Time Status Last Admin Dose Admin Acetaminophen 325 mg Q4HP PRN PO 07/05/25 17:30 Cancel Nitroglycerin 0.4 mg Q5MINP PRN SL 07/05/25 17:30 Morphine Sulfate 2 mg Q30M PRN IV 07/05/25 17:30 07/06/25 16:29 2 MG Aspirin 81 mg DAILY PO 07/06/25 10:00 07/07/25 09:21 81 MG Heparin Sodium (Porcine) 5,000 units Q12HR SC 07/05/25 22:00 07/07/25 09:27 5,000 UNITS Morphine Sulfate 2 mg Q4HPRN PRN IV 07/05/25 18:00 07/07/25 19:04 2 MG Furosemide 40 mg TID IV 07/05/25 22:00 07/07/25 17:11 40 MG Nicotine 1 patch DAILY TD 07/06/25 10:00 07/07/25 09:21 1 PATCH Levalbuterol HCl 0.625 mg Q6HR NEB 07/05/25 18:00 07/07/25 18:21 0.625 MG Ipratropium [place] 0.5 mg Q6HWA NEB 07/05/25 18:00 07/07/25 18:21 0.5 MG Acetaminophen 500 mg Q8HP PRN PO 07/06/25 08:00 Docusate Sodium 100 mg BID PO 07/07/25 22:00 Nifedipine 60 mg DAILY PO 07/08/25 10:00 Hydralazine HCl 10 mg Q6HP PRN IV 07/07/25 13:15 07/07/25 17:15 10 MG Sertraline HCl 50 mg DAILY PO 07/08/25 21:00 Tamsulosin HCl 0.4 mg QPM PO 07/07/25 18:00 07/07/25 18:43 0.4 MG Atorvastatin Calcium 40 mg HS PO 07/07/25 22:00 Alprazolam 0.25 mg Q8HP PRN PO 07/07/25 13:15 Sevelamer HCl 1,600 mg TIDWM PO 07/07/25 18:00 07/07/25 18:44 1,600 MG Famotidine 20 mg Q48H IV 07/07/25 22:00 Clonidine HCl 0.3 mg TID PO 07/07/25 22:00 Diphenhydramine HCl 25 mg Q4H IV 07/07/25 21:00 Methylprednisolone Sodium Succinate 40 mg Q6HR IV 07/08/25 00:00 laboratory and microbiology Laboratory Tests 07/07/25 05:20 07/06/25 06:16 Test 07/07/25 05:20 Range/Units Serum Glucose 137 H 74-106 mg/dL Microbiology Date/Time Source Procedure Growth Status 07/06/25 06:00 Nose MRSA Screen - Final Methicillin Resistant S.aureus Complete Problem List/Assessment/Plan Problem List/Assessment/Plan ESRD on hemodialysis Acute on chronic hypoxic respiratory failure pulmonary edema /pna Aortic stenosis Anemia Recommendations Hemodialysis 07/08 Epogen with dialysis Renally dose antibiotics to GFR dialysis dosing We will follow closely Plan discussed with: RIVER Ya MD Jul 07, 2025 19:19
[2025-07-07] MEDS: ATORVASTATIN 20 MG TAB PO SCH (21:19)
[2025-07-07] MEDS: DOCUSATE SOD 100 MG CAP PO SCH (21:19)
[2025-07-07] MEDS: diphenhdrAMINE HCL 50 MG/1 ML VL IV SCH (21:20)
[2025-07-07] MEDS: FAMOTIDINE (10MG/ML) 2ML VL IV SCH (21:24)
[2025-07-07] MEDS ORDERED: methylPREDNISolone SOD SUCC 40 MG/ML VL IV SCH (22:00)
[2025-07-07] MEDS: methylPREDNISolone SOD SUCC 40 MG/ML VL IV SCH (23:29)
[2025-07-08] VITALS (12 sets, daily range): BP systolic 169–188; BP diastolic 74–92; PULSE 85–91; RESP 18–19; TEMP 97.3–98.1; O2SAT 93–99
[2025-07-08] MEDS: LACTULOSE 20Gm/30ML SOLN PO ONE (01:30)
[2025-07-08] MEDS: ENALAPRILAT 1.25 MG/ML-1ML VIAL IV ONE (03:33)
[2025-07-08 06:27] LABS: Potassium 5.0 mmol/L (3.5-5.1); Sodium 138 mmol/L (136-145)
[2025-07-08 06:28] LABS: Anion Gap 15 (5-15); Calcium 8.8 mg/dL (8.7-10.4); Carbon Dioxide 26 mmol/L (20-31)
[2025-07-08 06:30] LABS: Chloride 97 mmol/L (98-107)
[2025-07-08 06:34] LABS: BUN/Creatinine Ratio 8.5 (10.0-20.0); Glucose 104 mg/dL (74-106)
[2025-07-08 06:37] LABS: Blood Urea Nitrogen 55 mg/dL (9-23)
[2025-07-08] MEDS ORDERED: CARVEDILOL 3.125 MG TAB PO SCH (10:00)
--- NOTE | 2025-07-08 12:15 | DVHPN2 ---
Subjective Better Less facial edema Changes from previous H/P or p: Changes Objective Vitals Vital Signs Date Time Temp Pulse Resp B/P (MAP) Pulse Ox O2 Delivery O2 Flow Rate FiO2 07/08/25 08:45 183/86 07/08/25 06:38 89 18 98 07/08/25 06:32 Nasal Cannula* 3 32 07/08/25 04:52 97.3 97.3 Intake/Output Intake and Output 07/08/25 07:00 Intake Total 1600 ml Output Total 800 ml Balance 800 ml Intake Oral 1600 ml Output Stool Total 800 ml # Voids 3 # Bowel Movements 1 General Appearance: Alert, Oriented X3, Cooperative, No acute distress Extremities: Other (trace edema B+1) Medications Current Medications Medications Dose Ordered Sig/Miguel Route Start Time Stop Time Status Last Admin Dose Admin Acetaminophen 325 mg Q4HP PRN PO 07/05/25 17:30 Cancel Nitroglycerin 0.4 mg Q5MINP PRN SL 07/05/25 17:30 Morphine Sulfate 2 mg Q30M PRN IV 07/05/25 17:30 07/06/25 16:29 2 MG Aspirin 81 mg DAILY PO 07/06/25 10:00 07/07/25 09:21 81 MG Heparin Sodium (Porcine) 5,000 units Q12HR SC 07/05/25 22:00 07/07/25 21:31 5,000 UNITS Morphine Sulfate 2 mg Q4HPRN PRN IV 07/05/25 18:00 07/08/25 03:38 2 MG Furosemide 40 mg TID IV 07/05/25 22:00 07/08/25 05:38 40 MG Nicotine 1 patch DAILY TD 07/06/25 10:00 07/08/25 10:36 1 PATCH Levalbuterol HCl 0.625 mg Q6HR NEB 07/05/25 18:00 07/08/25 06:32 0.625 MG Ipratropium [place] 0.5 mg Q6HWA NEB 07/05/25 18:00 07/08/25 06:32 0.5 MG Acetaminophen 500 mg Q8HP PRN PO 07/06/25 08:00 Docusate Sodium 100 mg BID PO 07/07/25 22:00 07/08/25 10:34 100 MG Nifedipine 60 mg DAILY PO 07/08/25 10:00 Hydralazine HCl 10 mg Q6HP PRN IV 07/07/25 13:15 07/08/25 08:45 10 MG Sertraline HCl 50 mg DAILY PO 07/08/25 21:00 Tamsulosin HCl 0.4 mg QPM PO 07/07/25 18:00 07/07/25 18:43 0.4 MG Atorvastatin Calcium 40 mg HS PO 07/07/25 22:00 07/07/25 21:19 40 MG Alprazolam 0.25 mg Q8HP PRN PO 07/07/25 13:15 Sevelamer HCl 1,600 mg TIDWM PO 07/07/25 18:00 07/08/25 11:44 1,600 MG Famotidine 20 mg Q48H IV 07/07/25 22:00 07/07/25 21:24 20 MG Clonidine HCl 0.3 mg TID PO 07/07/25 22:00 07/08/25 05:39 0.3 MG Diphenhydramine HCl 25 mg Q4H IV 07/07/25 21:00 07/08/25 08:46 25 MG Methylprednisolone Sodium Succinate 40 mg Q6HR IV 07/08/25 00:00 07/08/25 11:44 40 MG Carvedilol 6.25 mg Q12HR PO 07/08/25 10:00 UNV Laboratory Results Laboratory Tests 07/06/25 06:16 07/08/25 05:01 Chemistry Test 07/08/25 05:01 Calcium Level 8.8 mg/dL (8.7-10.4) Urinalysis Test 07/06/25 02:01 Urine Color Light-yellow (Yellow) Urine Clarity Turbid (Clear) H Urine pH 7.5 (5.0-9.0) Urine Specific [place] 1.009 (1.001-1.035) Urine Protein 1+ (Negative) H Urine Ketones Negative (Negative) Urine Blood Negative /uL (Negative) Urine Nitrite Negative (Negative) Urine Bilirubin Negative (Negative) Urine Urobilinogen Normal mg/dL (Negative) Urine Leukocyte Esterase 3+ /uL (Negative) Urine RBC 7 /hpf (0 - 3) Urine WBC Clumps Present /hpf (None Seen) Urine Microscopic WBC 422 /HPF (0-3) H Urine Squamous Epithelial Cells Few /hpf (<5) Urine Bacteria None seen /hpf (None Seen) Urine Glucose Trace mg/dL (Normal) Microbiology Microbiology Date/Time Source Procedure Growth Status 07/06/25 06:00 Nose MRSA Screen - Final Methicillin Resistant S.aureus Complete Assessment/Plan Assessment/Plan Acute hypoxic respiratory failure Chronic respiratory failure on home O2 COPD ESRD Left wrist trauma Chronic anemia of CKD HTN BPH PLAN: X-Ray left wrist HD per nephrology O2 Doxycycline IV Lasix Monitor closely 07/08/2025: Acute angioedema: Improving, continue IV steroids and Benadryl and Pepcid End-stage renal disease: Hemodialysis per nephrology COPD Chronic respiratory failure Hypertension: Add Coreg, continue nifedipine ER and clonidine Plan discussed with: Patient My Orders Orders - KILO MAHER MD Procedure Category Date Status Time Docusate Sodium PHA 07/07/25 In Process Capsule (Colace 22:00 Nifedipine Er PHA 07/08/25 In Process (Procardia Xl 10:00 Hydralazine Injection PHA 07/07/25 In Process (Apresoline Inject 13:15 Sertraline Hcl PHA 07/08/25 In Process (Zoloft) 21:00 Tamsulosin PHA 07/07/25 In Process Hydrochloride (Flomax) 18:00 Atorvastatin (Lipitor) PHA 07/07/25 In Process 22:00 Alprazolam Tablet PHA 07/07/25 In Process (Xanax Tablet) 13:15 Sevelamer (Renagel) PHA 07/07/25 In Process 18:00 Diphenhdramine PHA 07/07/25 In Process Injection (Benadryl 21:00 Methylprednisolone PHA 07/08/25 In Process Sod Succ (Solu Medrol 00:00 Carvedilol Tablet PHA 07/08/25 Pending (Coreg Tablet) 10:00 Date of Service: Jul 08, 2025 Billing Provider: KILO MAHER MD Common Visit Codes: NOT BILLABLE KILO MAHER MD Jul 08, 2025 12:15
--- NOTE | 2025-07-08 12:36 | DVH ---
CT MAXILLOFACIAL WITHOUT Indication: new facial swelling EXAM DATE: 07/08/2025 09:30 AM COMPARISON: None TECHNIQUE: CT of the maxillofacial bones without intravenous contrast. RADIATION DOSE: CTDIvol: 66.77 mGy, DLP: 66.77 mGy*cm FINDINGS: Orbits, retrobulbar spaces unremarkable. Bilateral facial region edema/stranding. No loculated collection present. Small bilateral mastoid effusions. Mucosal thickening of the ethmoids and bilateral maxillary sinuses . Parapharyngeal space edema/stranding. No facial region fracture identified. Moderate to advanced cervical degenerative disc disease IMPRESSION: Diffuse facial edema/stranding. No loculated collection identified. Small bilateral mastoid effusions. Bilateral maxillary sinus disease.
--- NOTE | 2025-07-08 14:06 | DVHPN2 ---
Progress Note Date Seen: Jul 08, 2025 Medical Necessity Reason Pt with a Central, PICC or Fol: No Subjective Patient reports: No new complaints Other Systems: Patient seen and examined by myself today in follow-up Patient examined hemodialysis, blood pressure stable Objective vital signs Vital Sign Date Time Temp Pulse Resp B/P (MAP) Pulse Ox O2 Delivery O2 Flow Rate FiO2 07/08/25 13:00 97.9 90 19 176/74 (108) 96 97.9 07/08/25 06:32 Nasal Cannula* 3 32 Total Intake and Output 07/07/25 07/07/25 07/08/25 15:00 23:00 07:00 Intake Total 1000 ml 600 ml Output Total 800 ml Balance 200 ml 600 ml medications Current Medications Medications Dose Ordered Sig/Miguel Route Start Time Stop Time Status Last Admin Dose Admin Acetaminophen 325 mg Q4HP PRN PO 07/05/25 17:30 Cancel Nitroglycerin 0.4 mg Q5MINP PRN SL 07/05/25 17:30 Morphine Sulfate 2 mg Q30M PRN IV 07/05/25 17:30 07/06/25 16:29 2 MG Aspirin 81 mg DAILY PO 07/06/25 10:00 07/07/25 09:21 81 MG Heparin Sodium (Porcine) 5,000 units Q12HR SC 07/05/25 22:00 07/07/25 21:31 5,000 UNITS Morphine Sulfate 2 mg Q4HPRN PRN IV 07/05/25 18:00 07/08/25 03:38 2 MG Furosemide 40 mg TID IV 07/05/25 22:00 07/08/25 05:38 40 MG Nicotine 1 patch DAILY TD 07/06/25 10:00 07/08/25 10:36 1 PATCH Levalbuterol HCl 0.625 mg Q6HR NEB 07/05/25 18:00 07/08/25 06:32 0.625 MG Ipratropium [place] 0.5 mg Q6HWA NEB 07/05/25 18:00 07/08/25 06:32 0.5 MG Acetaminophen 500 mg Q8HP PRN PO 07/06/25 08:00 Docusate Sodium 100 mg BID PO 07/07/25 22:00 07/08/25 10:34 100 MG Nifedipine 60 mg DAILY PO 07/08/25 10:00 Hydralazine HCl 10 mg Q6HP PRN IV 07/07/25 13:15 07/08/25 08:45 10 MG Sertraline HCl 50 mg DAILY PO 07/08/25 21:00 Tamsulosin HCl 0.4 mg QPM PO 07/07/25 18:00 07/07/25 18:43 0.4 MG Atorvastatin Calcium 40 mg HS PO 07/07/25 22:00 07/07/25 21:19 40 MG Alprazolam 0.25 mg Q8HP PRN PO 07/07/25 13:15 Sevelamer HCl 1,600 mg TIDWM PO 07/07/25 18:00 07/08/25 11:44 1,600 MG Famotidine 20 mg Q48H IV 07/07/25 22:00 07/07/25 21:24 20 MG Clonidine HCl 0.3 mg TID PO 07/07/25 22:00 07/08/25 05:39 0.3 MG Diphenhydramine HCl 25 mg Q4H IV 07/07/25 21:00 07/08/25 08:46 25 MG Carvedilol 6.25 mg Q12HR PO 07/08/25 10:00 UNV Methylprednisolone Sodium Succinate 40 mg Q12H IV 07/08/25 21:00 Examination: LUNGS:Normal, CVS:Normal, MSK:Abnormal laboratory and microbiology Laboratory Tests 07/08/25 05:01 07/06/25 06:16 Test 07/08/25 05:01 Range/Units Serum Glucose 104 74-106 mg/dL Microbiology Date/Time Source Procedure Growth Status 07/06/25 06:00 Nose MRSA Screen - Final Methicillin Resistant S.aureus Complete Problem List/Assessment/Plan Problem List/Assessment/Plan ESRD on hemodialysis Acute on chronic hypoxic respiratory Chronic diastolic Congestive heart failure Elevated troponin Hypertension Aortic stenosis Anemia of chronic kidney disease Recommendation Continue with UF 3 L as tolerated Epogen 56655 subQ 3 times weekly Strict I&Os Renal diet Blood pressure control Cardiology consult We will continue to follow up Plan discussed with: Patient My Orders My Orders Orders - RAKESH CRAIN MD Procedure Category Date Status Time Hepatitis B Surface LAB 07/08/25 In Process Antigen 11:18 RAKESH CRAIN MD Jul 08, 2025 14:06
--- NOTE | 2025-07-08 16:44 | DVH ---
Date: 07/08/2025 03:42 PM Examination: XY KUB ABDOMEN SINGLE VIEW History: Abdominal Pain Comparison: None TECHNIQUE: Frontal views of the abdomen was obtained. FINDINGS: Bowel gas pattern is unremarkable. Stool throughout the colon suggesting constipation The lung bases are unremarkable. Blunting of the left lateral costophrenic angle may represent scarri ng or small pleural effusion. No acute osseous abnormality identified. IMPRESSION: 1. Stool throughout the colon. Correlate for clinical settings suggesting constipation. 2. Blunting of the left lateral costophrenic angle. As noted on 05/02 2025.
[2025-07-08] MEDS: LACTULOSE 20Gm/30ML SOLN PO SCH (20:52)
[2025-07-08] MEDS: methylPREDNISolone SOD SUCC 40 MG/ML VL IV SCH (22:08)
[2025-07-08] MEDS: SERTRALINE HCL 50 MG TAB PO SCH (22:13)
[2025-07-09] VITALS (13 sets, daily range): BP systolic 194–221; BP diastolic 77–110; PULSE 66–92; RESP 17–24; TEMP 97.6–98.8; O2SAT 93–99
[2025-07-09 07:16] LABS: Anion Gap 15 (5-15); Carbon Dioxide 25 mmol/L (20-31)
[2025-07-09 07:21] LABS: BUN/Creatinine Ratio 8.6 (10.0-20.0); Glucose 95 mg/dL (74-106)
[2025-07-09 07:25] LABS: Blood Urea Nitrogen 51 mg/dL (9-23); Calcium 8.5 mg/dL (8.7-10.4); Chloride 96 mmol/L (98-107); Potassium 5.4 mmol/L (3.5-5.1); Sodium 136 mmol/L (136-145)
[2025-07-09] MEDS: CARVEDILOL 3.125 MG TAB PO ONE (09:35)
--- NOTE | 2025-07-09 14:49 | DVHPN2 ---
Progress Note Date Seen: Jul 09, 2025 Medical Necessity Reason Pt with a Central, PICC or Fol: No Subjective Patient reports: No new complaints Review of Systems: Deferred Objective vital signs Vital Sign Date Time Temp Pulse Resp B/P (MAP) Pulse Ox O2 Delivery O2 Flow Rate FiO2 07/09/25 14:22 66 19 216/97 07/09/25 13:00 97.8 96 97.8 07/09/25 06:11 Room Air 0.0 07/09/25 06:11 N/A Total Intake and Output 07/08/25 07/08/25 07/09/25 15:00 23:00 07:00 Intake Total 824 ml 700 ml Balance 824 ml 700 ml medications Current Medications Medications Dose Ordered Sig/Miguel Route Start Time Stop Time Status Last Admin Dose Admin Acetaminophen 325 mg Q4HP PRN PO 07/05/25 17:30 Cancel Nitroglycerin 0.4 mg Q5MINP PRN SL 07/05/25 17:30 Morphine Sulfate 2 mg Q30M PRN IV 07/05/25 17:30 07/09/25 14:22 2 MG Aspirin 81 mg DAILY PO 07/06/25 10:00 07/09/25 09:36 81 MG Heparin Sodium (Porcine) 5,000 units Q12HR SC 07/05/25 22:00 07/09/25 09:39 5,000 UNITS Morphine Sulfate 2 mg Q4HPRN PRN IV 07/05/25 18:00 07/08/25 20:47 2 MG Furosemide 40 mg TID IV 07/05/25 22:00 07/09/25 14:21 40 MG Nicotine 1 patch DAILY TD 07/06/25 10:00 07/09/25 09:38 1 PATCH Levalbuterol HCl 0.625 mg Q6HR NEB 07/05/25 18:00 07/09/25 11:[address] [place] 0.5 mg Q6HWA NEB 07/05/25 18:00 07/09/25 11:26 0.5 MG Acetaminophen 500 mg Q8HP PRN PO 07/06/25 08:00 Docusate Sodium 100 mg BID PO 07/07/25 22:00 07/09/25 09:36 100 MG Hydralazine HCl 10 mg Q6HP PRN IV 07/07/25 13:15 07/08/25 20:52 10 MG Sertraline HCl 50 mg DAILY PO 07/08/25 21:00 07/09/25 09:36 50 MG Tamsulosin HCl 0.4 mg QPM PO 07/07/25 18:00 07/08/25 17:30 0.4 MG Atorvastatin Calcium 40 mg HS PO 07/07/25 22:00 07/08/25 22:09 40 MG Alprazolam 0.25 mg Q8HP PRN PO 07/07/25 13:15 Sevelamer HCl 1,600 mg TIDWM PO 07/07/25 18:00 07/09/25 14:16 1,600 MG Famotidine 20 mg Q48H IV 07/07/25 22:00 07/07/25 21:24 20 MG Clonidine HCl 0.3 mg TID PO 07/07/25 22:00 07/09/25 14:17 0.3 MG Diphenhydramine HCl 25 mg Q4H IV 07/07/25 21:00 07/09/25 06:27 25 MG Methylprednisolone Sodium Succinate 40 mg Q12H IV 07/08/25 21:00 07/09/25 09:37 40 MG Lactulose 30 ml DAILY PO 07/08/25 20:00 07/09/25 09:36 30 ML Carvedilol 3.125 mg Q12HR PO 07/09/25 21:00 Nifedipine 60 mg DAILY PO 07/10/25 10:00 laboratory and microbiology Laboratory Tests 07/09/25 05:31 07/06/25 06:16 Test 07/09/25 05:31 Range/Units Serum Glucose 95 74-106 mg/dL Microbiology Date/Time Source Procedure Growth Status 07/06/25 06:00 Nose MRSA Screen - Final Methicillin Resistant S.aureus Complete Problem List/Assessment/Plan Problem List/Assessment/Plan ESRD on hemodialysis Acute on chronic hypoxic respiratory failure pulmonary edema /pna Aortic stenosis Anemia Recommendations Hemodialysis today he is mwf schedule Epogen with dialysis Renally dose antibiotics to GFR dialysis dosing We will follow closely Plan discussed with: Patient My Orders My Orders Orders - RIVER MCKINNON MD Procedure Category Date Status Time Hemodialysis Orders ORDERS 07/09/25 Transmitted 11:40 Dietary Evaluation Review Comments: Nutrition Recommendation: 1) Consider Nephro-maryam 1 tab daily 2) Monitor PO intake, lab values, weight trend, and I/O Expected Outcomes/Goals: To meet >75% estimated needs Lab values to improve Fu 3-5 days RIVER MCKINNON MD Jul 09, 2025 14:49
[2025-07-09] MEDS ORDERED: CARVEDILOL 3.125 MG TAB PO SCH (21:00)
--- NOTE | 2025-07-15 06:24 | ECG ---
[facility] Test Date: 2025-07-14 Test Time: 13:21:21 Pat Name: MELISSA MATHEWS Department: ED Room: 0208T Gender: M Block Trimmer: jason : [id number] Requested By: JOHN PAUL MALDONADO Order Number: [id number] Reading MD: Measurements Intervals Romeo Rate: 75 P: 46 TN: 163 QRS: 66 QRSD: 98 T: 243 QT: 398 QTc: 445 Interpretive Statements Sinus rhythm Repol abnrm, global ischemia, diffuse leads Please click the below link to view image of tracing.
[2025-07-15] MEDS ORDERED: SERT25TA28 PO (10:24)
== END 2025-07-09 20:08 | disposition home or self-care (01) | DRG 291 ==
LOC: ER 15:28 → EDBD 15:28 → OVERFLOW 17:26 → TELE-WESTW 07-06 02:40 → TELE-CENTR 07-06 18:32
PROVIDERS: ADMIT Internal Medicine Geriatric Medicine; ATTEND Internal Medicine Geriatric Medicine
PROC: 5A1D70Z Performance of Urinary Filtration, Intermittent, Less than 6 Hours Per Day (ICD-10-PCS; principal; 2025-07-06)
PROC: 5A1D70Z Performance of Urinary Filtration, Intermittent, Less than 6 Hours Per Day (ICD-10-PCS; 2025-07-08)
DX: I13.2 Hypertensive heart and chronic kidney disease with heart failure and with stage 5 chronic kidney disease, or end stage renal disease (principal); I50.33 Acute on chronic diastolic (congestive) heart failure; J96.21 Acute and chronic respiratory failure with hypoxia; N18.6 End stage renal disease; J44.1 Chronic obstructive pulmonary disease with (acute) exacerbation; J44.0 Chronic obstructive pulmonary disease with (acute) lower respiratory infection; Z20.822 Contact with and (suspected) exposure to COVID-19; D63.1 Anemia in chronic kidney disease; Z99.81 Dependence on supplemental oxygen; Z99.2 Dependence on renal dialysis; I35.0 Nonrheumatic aortic (valve) stenosis; E87.6 Hypokalemia; I25.2 Old myocardial infarction; N40.0 Benign prostatic hyperplasia without lower urinary tract symptoms; Z99.3 Dependence on wheelchair; Z86.73 Personal history of transient ischemic attack (TIA), and cerebral infarction without residual deficits; Z82.49 Family history of ischemic heart disease and other diseases of the circulatory system; Z79.82 Long term (current) use of aspirin
CPT/HCPCS: 36415; 36600; 70450; 70486; 71045; 73110; 74018; 80048; 80053; 80061; 80307; 81001; 82306; 82607; 82805; 83036; 83605; 83735; 83880; 84100; 84443; 84484; 85025; 85610; 85730; 87081; 87340; 87426; 87804; 90935; 93005; 94640; 96365; 96375; 97163; G0378; J3490

== ENCOUNTER 2025-07-14 13:15 | Inpatient (IN) | payer OTHER, MEDICAID ==
[~2025-07-14] VITALS: Ht 170.2 cm; Wt 82.4 kg
[~2025-07-14 13:15] MED LIST changes: -AUG875T PO; -AZIT500T66 PO
--- NOTE | 2025-07-14 13:58 | ED.PDOC ---
HPI Comments Discharge summary from 07/07/25 Acute hypoxic respiratory failure Chronic respiratory failure on home O2 COPD ESRD Left wrist trauma no fracture Chronic anemia of CKD HTN BPH HPI: 70 year old male presents to the ED with a chief complaint of chest pain onset today (07/14/25). Patient states he woke up this morning around 04:00 experiencing LT sided chest pain, rates pain 10/10, as well as shortness of breath. Patient gets dialysis Saturday, Saturday, Saturday, last dialysis was last Saturday, has missed 2 dialysis treatment due to "not feeling well." Patient was hospitalized about 1 week ago due to MRSA. Is on 3L home O2. Denies fever, chills, dizziness, headache, blurred vision, numbness/tingling, dysuria, nausea, vomiting. No other symptoms or modifying factors present at this time. Initial Vitals BP: 154/50 HR: 75 RR: 18 O2 Sat: 95% Temp: 98.3 F Past Medical history: CHF, COPD, CVA, ESRD, HTN, LA Past Surgical history: hernia repair Medications: atorvastatin, clonidine, Hydralazine Social History: Denies smoking, ETOH, and drug use. 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 HPI: Poor Historian. REVIEW OF SYSTEMS: CONSTITUTIONAL: Denies acute: fever, diaphoresis, chills, HEAD: Denies acute: headache, photophobia Eyes: Denies acute: Double vision, vision loss, eye pain, eye discharge. EARS: Denies acute: tinnitus, hearing loss, ear discharge, ear pain, THROAT: Denies acute: sore throat, swelling, difficulty swallowing , pain with swallowing, change in voice. NECK: Denies acute: neck pain, neck swelling, stiff neck. HEART: Denies acute : palpitations, LUNGS: Denies acute: wheezing, cough, hemoptysis ABDOMEN: Denies acute: abdominal pain, Nausea, Vomiting, diarrhea, melena , hematemesis, hematochezia SKIN: Denies acute: rash, redness, lesions, itchiness. EXTREMITIES: Denies acute: calf pain, numbness, tingling, weakness, denies pain in extremity. Denies acute: Low back pain. Neuro: Denies acute: focal neurological deficit, motor or sensory focal neurological deficit, tremors, seizure like activity, confusion, dizziness, change in mental status, loss of bowel or bladder function, cauda equina like symptoms. : Denies acute: dysuria, hematuria, flank pain, increase in urinary frequency. PSYCH: Denies acute: hallucination, suicidal ideation, homicidal ideation. PHYSICAL EXAM: General: -----moderate---acute distress, awake and alert. Head: normocephalic, atraumatic. Neck: supple, trachea is midline, no swelling. Throat: Normal phonation. Eyes:, no erythema, no purulent discharge, no proptosis, no icterus. Heart: regular rate, regular rhythm, no significant murmur appreciated. Lungs: no apparent respiratory distress, Able to speak in full sentences. No wheezing, no rhonchi, no crackles. No stridors Clear to auscultation bilaterally. Abdomen: non tender to palpation, non distended, soft, no guarding, no rebound, + bowel sounds. Neuro: Awake, Alert, oriented to name, self, situation, follows commands GCS=15. Speech is normal. Skin: no petechia, no purpura, no cyanosis, non-pale, not jaundice. Lower extremities: --trace bilateral - Pitting edema no deformity, no focal swelling, no calf TTP. Makes eye contact. moves all four extremities. Face: no apparent facial droop. ED COURSE: DISCLAIMER: This medical document was created using an electronic medical record system with voice recognition software and computerized dictation system. Although this document has been carefully reviewed, there might still be some phonetic and typographical errors. Occasional wrong-word or "sound-alike" substitutions may have occurred due to the inherent limitations of voice recognition software. These areas are purely typographical due to imperfections of the software programs and do not reflect any compromise in the patient's medical care. Please read the chart carefully and recognize, using context, where these substitutions have occurred. Chief Complaint: Chest Pain Time Seen by MD: 13:45 Primary Care Provider: n/a Reviewed Notes: Medications, Allergies Allergies: Coded Allergies: NO KNOWN ALLERGIES (Unverified , 10/17/22) Home Meds Active Scripts Atorvastatin Calcium (ATORVASTATIN CALCIUM) 40 Mg Tab, 40 MG PO DAILY for 30 Days, #30 TAB 0 Refills Prov:RANJAN SZYMANSKI RESIDENT 11/10/24 Reported Medications Furosemide (Furosemide) 40 Mg Tab, 1 TAB PO DAILY for 90 Days, #90 07/15/25 Sertraline Hcl (Sertraline Hcl) 25 Mg Tab, 1 TAB PO QAM for 60 Days, #60 07/15/25 Nifedipine (Nifedipine Er) 90 Mg Tab, 1 TAB PO DAILY for 90 Days, #90 07/15/25 Clonidine Hydrochloride (Clonidine Hydrochloride) 0.3 Mg Tab, 1 TAB PO Q8HR PRN for BP GREATER THAN 180 for 90 Days, #270 11/06/24 Sevelamer Carbonate (Renvela) 800 Mg Tab, 2 TAB PO TIDWM for 90 Days, #540 10/27/24 Alprazolam (Alprazolam) 1 Mg Tab, 1 TAB PO DAILYPRN PRN for ANXIETY for 30 Days, #30 10/27/24 Tamsulosin Hcl (Tamsulosin Hcl) 0.4 Mg Cap, 1 CAP PO DAILY 01/14/24 Hydralazine Hcl (Hydralazine Hcl) 100 Mg Tab, 1 TAB PO Q8HR for BP GREATER THAN 140/80 for 30 Days, #30 01/14/24 Discontinued Reported Medications Sertraline HCl (Sertraline HCl) 50 Mg Tab, 50 MG PO DAILY, TAB 11/06/24 Nifedipine (Nifedipine Er) 60 Mg Tab, 1 TAB PO DAILY 01/14/24 Information Source: Patient Mode of Arrival: Ambulatory Severity: Moderate Timing: Hours Duration: Since onset Prehospital treatment: None Location: Chest (L) Radiation: No Radiation Quality: Sharp Onset: At Rest Cardiac Risk Factors: HTN PE Risk Factors: None History of: Similar pain in past, [place] Modifying Factors: Nothing Associated Signs and Symptoms: SOB Past Medical History PAST MEDICAL HISTORY: CHF, COPD, CVA, ESRD, HTN, [place] Surgical History: Hernia Repair Family History Family History: Reviewed,noncontributory to illness Social History Smoker: Non-Smoker Alcohol: Denies ETOH Use Drugs: Denies Drug Use Lives In: Home Was a procedure done? Was a procedure done?: No CP Differential Dx Differential Diagnosis: N/A Differential Diagnosis: Other (Ddx include but not limitied to gastritis, musculoskeletal pain, radiculopathy, atypical chest pain, dissection, aneurysm, ACS, unstable angina, hiatal hernia, GERD, anxiety, costochondritis, PE, pneumothroax, neoplasm, cardiac ischemia, drug abuse, anemia.) X-Ray, Labs, Meds, VS Vital Signs Date Time Temp Pulse Resp B/P (MAP) Pulse Ox O2 Delivery O2 Flow Rate FiO2 07/14/25 19:04 185/76 07/14/25 16:10 98 Nasal Cannula* 3 32 07/14/25 16:10 16 98 Nasal Cannula* 4 36 07/14/25 14:42 68 07/14/25 13:21 75 07/14/25 13:19 98.3 75 18 154/50 95 98.3 Lab Test 07/14/25 19:00 07/14/25 17:16 07/14/25 14:49 07/14/25 13:47 Range/Units POC Glucose 87 70-106 mg/dl Troponin I High Sensitivity 168 *H 143 *H 154 *H </=54 ng/L White Blood Count 8.5 4.4-10.8 10^3/uL Red Blood Count 3.70 L 4.5-5.90 10^6/uL Hemoglobin 9.9 L 13.5-17.5 g/dL Hematocrit 30.4 L 41.0-53.0 % Mean Corpuscular Volume 82.0 80.0-100.0 fL Mean Corpuscular Hemoglobin 26.8 L 28.0-32.0 pg Mean Corpuscular Hemoglobin Concent 32.7 32.0-36.0 g/dL Red Cell Distribution Width 17.1 H 11.8-14.3 % Platelet Count 339 140-450 10^3/uL Mean Platelet Volume 8.4 6.9-10.8 fL Neutrophils (%) (Auto) 83.2 H 37.0-80.0 % Lymphocytes (%) (Auto) 6.5 L 10.0-50.0 % Monocytes (%) (Auto) 4.7 0.0-12.0 % Eosinophils (%) (Auto) 5.4 0.0-7.0 % Basophils (%) (Auto) 0.2 0.0-2.0 % Neutrophils # (Auto) 7.1 1.6-8.6 10 ^3/uL Lymphocytes # (Auto) 0.6 0.4-5.4 10 ^3/uL Monocytes # (Auto) 0.4 0-1.3 10 ^3/uL Eosinophils # (Auto) 0.5 0-0.8 10 ^3/uL Basophils # (Auto) 0 0-0.2 10 ^3/uL Nucleated Red Blood Cells 0.0 % Sodium Level 140 136-145 mmol/L Potassium Level 5.2 H 3.5-5.1 mmol/L Chloride Level 106 # 98-107 mmol/L Carbon Dioxide Level 17 L 20-31 mmol/L Anion Gap 17 H 5-15 Blood Urea Nitrogen 103 *H 9-23 mg/dL Creatinine 9.52 #H 0.700-1.30 mg/dL Glomerular Filtration Rate Calc 5 >90 mL/min BUN/Creatinine Ratio 10.8 10.0-20.0 Serum Glucose 136 H 74-106 mg/dL Calcium Level 8.4 L 8.7-10.4 mg/dL Total Bilirubin < 0.2 L 0.2-1.0 mg/dL Aspartate Amino Transferase (AST) 18 13-40 U/L Alanine Aminotransferase (ALT) 14 7-40 U/L Alkaline Phosphatase 76 46-116 U/L B-Type Natriuretic Peptide 4992.20 0-100 pg/mL Total Protein 6.1 5.7-8.2 g/dL Albumin 3.5 3.2-4.8 g/dL [place] [address] DIAGNOSTIC IMAGING Diagnostic Imaging Report : [id number] Signed PATIENT: MELISSA MATHEWSACCT: [id number] UNIT: [id number] : 1955 LOC: ER ROOM / BED: / AGE / SEX: 70 / M ADM STATUS: REG ER SERVICE 1349 ORDERING PHYSICIAN: JOHN PAUL MALDONADO DO PROCEDURE(s): CXRP - CHEST PORTABLE REASON: cp ORDER NUMBER(s): [id number], ACCESSION NUMBER(s): [id number] INDICATION: cp TECHNIQUE: Frontal view of the chest. COMPARISON: XY CHEST PORTABLE on DOS: 07/05/25, XY CHEST XRAY 1 VIEW on DOS: 05/30/25, XY CHEST PORTABLE on DOS: 05/04/25, XY CHEST XRAY 1 VIEW on DOS: 05/02/25, XY CHEST PORTABLE on DOS: 04/30/25 FINDINGS: Cardiomegaly.. . There is no evidence of pleural disease. . The bony structures of the chest are intact without fracture. IMPRESSION: 1. Cardiomegaly with CHF. ATED BY: OMEGA BEASLEY MD DICTATED DATE/TIME: 07/14/251444 SIGNED BY: OMEGA BEASLEY MD SIGNED DATE/TIME: 07/14/255 CC: Time of 1ST Reevaluation: 14:15 Reevaluation 1ST: Unchanged Patient Education/Counseling: Diagnosis, Treatment Family Education/Counseling: No Family Present Comments MDM: patient presented with the above HPI.---cardiac---workup was initiated. patient was found with the above mentioned diagnosis. the following medications were ordered: please refer to order lists of meds and tests obtained by myself Dr. Maldonado. Patient ED course and VS have been stabilized. Patient has been reassessed in the ED and remained in a stable condition. Pertinent incidental findings were discussed with the patient and/or family. Patient/family voices understanding and is agreeable with plan. Patient has been observed in the ED adequate length of time to insure improvement/stability. Escalation of care considered: Consideration of escalation to observation or admission Dialysis patient with volume overload. Missed dialysis. Patient was ADMITTED to the medicine team for further evaluation and treatment of their presentation. All the reports of any imaging studies that were ordered by myself were reviewed by myself. Departure 1 Departure Time of Disposition: 14:00 Impression: Primary Impression: Chest pain Additional Impressions: ESRD on hemodialysis Dyspnea Missed dialysis Elevated troponin CHF exacerbation Disposition: ADMITTED INPATIENT Admit to: Tele Condition: Guarded Discharged With: Self Critical Care Note Critical Care Time?: Yes (45 min-critical care time only) Heart Score Heart Score: Heart Score Response (Comments) Value History Moderate Suspicious [address]-Deviation 2 Age >65 2 Risk Factors >3 or Hx ASHD 2 Troponin 1-2 x's Normal limit 1 Total 8 I personally scribed for JOHN PAUL MALDONADO DO ([email or web address]) on 9/24/25 at 13:58. Electronically submitted by Katia Colunga ([email or web address]). JOHN PAUL MALDONADO DO Jul 14, 2025 13:58
[2025-07-14 14:09] LABS: Hemoglobin 9.9 g/dL (13.5-17.5); Nucleated Red Blood Cells % 0.0 %
[2025-07-14 14:11] LABS: Hematocrit 30.4 % (41.0-53.0); Mean Corpuscular Hemoglobin 26.8 pg (28.0-32.0); Mean Corpuscular Volume 82.0 fL (80.0-100.0)
[2025-07-14 14:25] LABS: Alanine Aminotransferase 14 U/L (7-40); Albumin 3.5 g/dL (3.2-4.8); Alkaline Phosphatase 76 U/L (46-116); Anion Gap 17 (5-15); BUN/Creatinine Ratio 10.8 (10.0-20.0); Chloride 106 mmol/L (98-107); Sodium 140 mmol/L (136-145); Total Protein 6.1 g/dL (5.7-8.2)
[2025-07-14 14:26] LABS: Bilirubin, Total < 0.2 mg/dL (0.2-1.0)
[2025-07-14 14:27] LABS: Calcium 8.4 mg/dL (8.7-10.4); Carbon Dioxide 17 mmol/L (20-31); Glucose 136 mg/dL (74-106); Potassium 5.2 mmol/L (3.5-5.1)
[2025-07-14 14:28] LABS: Blood Urea Nitrogen 103 mg/dL (9-23)
--- NOTE | 2025-07-14 14:44 | ECG ---
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
--- NOTE | 2025-07-14 14:48 | DVH ---
INDICATION: cp TECHNIQUE: Frontal view of the chest. COMPARISON: XY CHEST PORTABLE on DOS: 07/05/25, XY CHEST XRAY 1 VIEW on DOS: 05/30/25, XY CHEST PORTABL E on DOS: 05/04/25, XY CHEST XRAY 1 VIEW on DOS: 05/02/25, XY CHEST PORTABLE on DOS: 04/30/25 FINDINGS: Cardiomegaly.. . There is no evidence of pleural disease. . The bony structures of the chest a re intact without fracture. IMPRESSION: 1. Cardiomegaly with CHF.
[2025-07-14] MEDS: ALBUTEROL SULF 2.5 MG/0.5ML(0.5%) NEB SOLN NEB ONE (16:10)
[2025-07-14] MEDS: IPRATROPIUM BROM 0.5 MG/2.5ML INH SOL NEB ONE (16:10)
--- NOTE | 2025-07-14 16:44 | ECG ---
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
[2025-07-14] MEDS: HYDROcodone-ACET 5/325MG TAB PO ONE (18:59)
[2025-07-14] MEDS: FUROSEMIDE 100 MG/10ML VIAL IV ONE (19:04)
[2025-07-14] MEDS ORDERED: ACETAMINOPHEN 325 MG TAB PO PRN (19:30)
[2025-07-14] MEDS ORDERED: NITROGLYCERIN 0.4 MG SL TAB SL PRN (19:30)
[2025-07-14] MEDS: ALBUTEROL SULF 2.5 MG/0.5ML(0.5%) NEB SOLN ONE (19:58)
[2025-07-14 20:06] VITALS: PULSE 66; RESP 20; O2SAT 98
[2025-07-14] MEDS: ALBUTEROL SULF 2.5 MG/0.5ML(0.5%) NEB SOLN NEB PRN (20:06)
[2025-07-14 20:11] VITALS: PULSE 72; RESP 20; O2SAT 100
[2025-07-14 20:20] VITALS: BP 185/76; PULSE 66; RESP 20; TEMP 98.3; O2SAT 98
[2025-07-14] MEDS: ONDANSETRON HCL 4 MG/2 ML VIAL IV PRN (20:33)
[2025-07-14] MEDS: MORPHINE SULFATE 4 MG/ML SYR/VIAL IV PRN (20:34)
[2025-07-14] MEDS: ATORVASTATIN 20 MG TAB PO SCH (20:34)
[2025-07-14 20:40] VITALS: PULSE 68; RESP 18; O2SAT 96
[2025-07-14 21:43] VITALS: PULSE 73; RESP 16; O2SAT 95
--- NOTE | 2025-07-14 22:00 | DVHHP2 ---
History of Present Illness Reason for Visit: Chest pain History of Present Illness 70-year-old male presents for evaluation of chest pain. Patient reports a one day history of left-sided sharp nonradiating chest pain with associated shortness for breath. He reports missing his last two dialysis sessions. Denies cough or fever. No other acute complaints reported. Past Medical History End-stage renal disease, hypertension, mi, CVA, COPD, CHF Past Surgical History Hernia repair, dialysis access Family History Noncontributory Smoke: No ALCOHOL: none Drugs: None Lives: with Family Review of Systems Review of Systems Review of systems are currently negative otherwise addressed in HPI. Allergies: Coded Allergies: NO KNOWN ALLERGIES (Unverified , 10/17/22) Medications Current Medications Medications Dose Ordered Sig/Miguel Route Start Time Stop Time Status Last Admin Dose Admin Aspirin 162 mg DAILY PO 07/15/25 10:00 Albuterol 2.5 mg Q6HPRN PRN NEB 07/14/25 19:30 07/14/25 20:06 2.5 MG Atorvastatin Calcium 40 mg HS PO 07/14/25 22:00 07/14/25 20:34 40 MG Clonidine HCl 0.2 mg TID PO 07/14/25 22:00 07/14/25 20:35 0.2 MG Hydralazine HCl 100 mg DAILY PO 07/15/25 10:00 Nifedipine 60 mg DAILY PO 07/15/25 10:00 Sevelamer HCl 800 mg TIDWM PO 07/15/25 08:00 Tamsulosin HCl 0.4 mg QPM PO 07/15/25 18:00 Ondansetron HCl 4 mg Q4HP PRN IV 07/14/25 19:30 07/14/25 20:33 4 MG Acetaminophen 650 mg Q6HP PRN PO 07/14/25 19:30 Nitroglycerin 0.4 mg Q5MINP PRN SL 07/14/25 19:30 Morphine Sulfate 2 mg Q30M PRN IV 07/14/25 19:30 Morphine Sulfate 4 mg Q4HPRN PRN IV 07/14/25 20:15 07/14/25 20:34 4 MG Exam Vital Signs Vital Signs Date Time Temp Pulse Resp B/P (MAP) Pulse Ox O2 Delivery O2 Flow Rate FiO2 07/14/25 21:16 97.8 72 18 185/68 (107) 98 97.8 07/14/25 20:40 Nasal Cannula* 3 32 Exam Gen: 70-year-old male Skin: Warm, dry, normal color and texture, no rash. HEENT: Normocephalic atraumatic, mucous membranes moist and pink. Neck: Cervical and supraclavicular nodes normal without enlargement, trachea is midline, thyroid gland is normal without masses. Pulmonary: Clear to auscultation and percussion bilaterally. Cardiac: Regular rate and rhythm. No murmur Abdomen: Soft, nontender, nondistended, bowel sounds present all 4 quadrants, no guarding, no rigidity, no organomegaly. Extremities: No cyanosis, clubbing, no edema Neuro: Cranial nerves II through XII grossly intact, normal affect and speech, no focal motor deficits. Labs/Xrays ORDERING PHYSICIAN: EDMUNDO MAHARAJ PROCEDURE(s): ECIDC - ECHO 2D MODE CARDIAC DOP REASON: CHEST PAIN ORDER NUMBER(s): [id number], ACCESSION NUMBER(s): [id number] APPROVED REPORT EXAM: Two-dimensional and M-mode echocardiogram with Doppler and color Doppler. Blood Pressure: 161/82 mmHg INDICATION Chest Pain RISK FACTORS Height: 5'7, Weight: 191 DIMENSIONS LVDd 5.2 (3.8-5.7cm) LA (2D) 6.0 (1.9-4.0cm) Aortic Root 3.7 (2.0- 3.7cm) LVDs 3.2 (2.5-4.0cm) LA (MM) (1.9-4.0cm) Aortic Cusp Exc 1.4 (1.5- 2.0cm) EF (%) 65.0 (55-70%) Rt. Atrium 4.2 (1.9-4.0cm) Asc. Aorta cm IVSd 1.6 (0.7-1.1cm) RV (D) (1.8-2.4cm) PWd 1.6 (0.7-1.1cm) Mitral Valve Mitral Mitral Stenosis E wave 1.44m/s MV Mean GR. mmHg A wave 1.28m/s MV Peak GR. 94mmHg E/A ratio 1.1 2D MVA cm2 DECEL Time 210ms PRESS 1/2 Time ms Aortic Valve Aortic Valve Aortic Stenosis V1 1.36m/s AO Mean GR. 28mmHg V2 3.54m/s AO Peak GR. 48mmHg LVOT Diameter 1.8 (1.8-2.4cm) Doppler RICO 0.98cm2 AI P 1/2 Time 344.93ms Tricuspid Valve TR Velocity 2.99m/s RVSP 36mmHg Other Information Technically limited study due to pt taking deep breaths in and holding breathe, pt moving Conclusion Left ventricle: Moderate concentric left ventricular hypertrophy was seen. LVEF was 55-60%. Pseudo normal LV filling was observed. There was no gross wall motion abnormality. Right ventricle was normal-sized. Left atrium was moderately dilated. Right atrium was mildly dilated. Aortic valve was not well visualized. Moderate to severe aortic stenosis with peak/mean pressure gradient of 55/29 mm Hg was observed. Calculated aortic valve area was 1.0 cm. Up to moderate aortic insufficiency was observed. Consider TAMARA for further evaluation of aortic valve. Mild mitral/tricuspid regurgitation was observed. Pulmonary valve was not well visualized. Right ventricular systolic pressure was assessed at 45 mm Hg. There was trace pericardial effusion. SIGNED BY: BRANDI VAIL MD ORDERING PHYSICIAN: JOHN PAUL MALDONADO DO PROCEDURE(s): CXRP - CHEST PORTABLE REASON: cp ORDER NUMBER(s): [id number], ACCESSION NUMBER(s): [id number] INDICATION: cp TECHNIQUE: Frontal view of the chest. COMPARISON: XY CHEST PORTABLE on DOS: 07/05/25, XY CHEST XRAY 1 VIEW on DOS: 05/30/25, XY CHEST PORTABLE on DOS: 05/04/25, XY CHEST XRAY 1 VIEW on DOS: 05/02/25, XY CHEST PORTABLE on DOS: 04/30/25 FINDINGS: Cardiomegaly.. . There is no evidence of pleural disease. . The bony structures of the chest are intact without fracture. IMPRESSION: 1. Cardiomegaly with CHF. Labs Test 07/14/25 19:00 07/14/25 17:16 07/14/25 13:47 Range/Units POC Glucose 87 70-106 mg/dl Troponin I High Sensitivity 168 *H </=54 ng/L White Blood Count 8.5 4.4-10.8 10^3/uL Red Blood Count 3.70 L 4.5-5.90 10^6/uL Hemoglobin 9.9 L 13.5-17.5 g/dL Hematocrit 30.4 L 41.0-53.0 % Mean Corpuscular Volume 82.0 80.0-100.0 fL Mean Corpuscular Hemoglobin 26.8 L 28.0-32.0 pg Mean Corpuscular Hemoglobin Concent 32.7 32.0-36.0 g/dL Red Cell Distribution Width 17.1 H 11.8-14.3 % Platelet Count 339 140-450 10^3/uL Mean Platelet Volume 8.4 6.9-10.8 fL Neutrophils (%) (Auto) 83.2 H 37.0-80.0 % Lymphocytes (%) (Auto) 6.5 L 10.0-50.0 % Monocytes (%) (Auto) 4.7 0.0-12.0 % Eosinophils (%) (Auto) 5.4 0.0-7.0 % Basophils (%) (Auto) 0.2 0.0-2.0 % Neutrophils # (Auto) 7.1 1.6-8.6 10 ^3/uL Lymphocytes # (Auto) 0.6 0.4-5.4 10 ^3/uL Monocytes # (Auto) 0.4 0-1.3 10 ^3/uL Eosinophils # (Auto) 0.5 0-0.8 10 ^3/uL Basophils # (Auto) 0 0-0.2 10 ^3/uL Nucleated Red Blood Cells 0.0 % Sodium Level 140 136-145 mmol/L Potassium Level 5.2 H 3.5-5.1 mmol/L Chloride Level 106 # 98-107 mmol/L Carbon Dioxide Level 17 L 20-31 mmol/L Anion Gap 17 H 5-15 Blood Urea Nitrogen 103 *H 9-23 mg/dL Creatinine 9.52 #H 0.700-1.30 mg/dL Glomerular Filtration Rate Calc 5 >90 mL/min BUN/Creatinine Ratio 10.8 10.0-20.0 Serum Glucose 136 H 74-106 mg/dL Calcium Level 8.4 L 8.7-10.4 mg/dL Total Bilirubin < 0.2 L 0.2-1.0 mg/dL Aspartate Amino Transferase (AST) 18 13-40 U/L Alanine Aminotransferase (ALT) 14 7-40 U/L Alkaline Phosphatase 76 46-116 U/L B-Type Natriuretic Peptide 4992.20 0-100 pg/mL Total Protein 6.1 5.7-8.2 g/dL Albumin 3.5 3.2-4.8 g/dL SEPSIS Sepsis Screen Date sepsis recognized/suspect: Jul 14, 2025 Time Sepsis recognized/suspect: 1327 Recent Procedure: No On Antibiotic Therapy: No Respiratory Rate >20: No Heart Rate >90: No Temp<36 C (96.8 F) or >38.3 C: No SBP <90 or MAP <65 mmHG: No New Acute Mental Status Change: No Is the patient on CPAP, BIPAP,: No Physician Orders Aspirin Tablet (07/15/25 10:00) Albuterol Medneb (Ventolin Medneb) (07/14/25 19:30) Atorvastatin (Lipitor) (07/14/25 22:00) Clonidine Hcl Tablet (Catapres Tablet) (07/14/25 22:00) Hydralazine Hcl Tablet (Apresoline Table (07/15/25 10:00) Nifedipine Er (Procardia Xl (Time-Releas (07/15/25 10:00) Sevelamer (Renagel) (07/15/25 08:00) Tamsulosin Hydrochloride (Flomax) (07/15/25 18:00) *[facility] (07/14/25 19:25) Basic Metabolic Panel (07/15/25 04:00) Admit (07/14/25 19:25) Renal Standard(2gna,3gk,Lopho) (07/15/25 Breakfast) Ondansetron Hcl (Zofran) (07/14/25 19:30) Complete Blood Count (07/15/25 04:00) Cardiac Diet-2gna,Lofat,Lochol (07/15/25 Breakfast) Condition: Fair (07/14/25 19:25) Acetaminophen Tablet (Tylenol Tablet) (07/14/25 19:30) Bedrest With Bathroom Privileg (07/14/25 19:25) Nitroglycerin Sublingual (Ntrostat Subli (07/14/25 19:30) Morphine Sulfate Injection (07/14/25 19:30) Stat Ekg For Chest Pain (07/14/25 19:25) Notify Of Changes From Base (07/14/25 19:25) Nonprofit Manager For 24 Hours (07/14/25 19:25) Emergency Dysrhythmia Protocol (07/14/25 19:25) Rhythm Strips Once Every Shift (07/14/25 19:25) Oxygen By Nasal Cannula (07/14/25 19:25) Morphine Sulfate Injection (07/14/25 20:15) Vital Signs Date Time Temp Pulse Resp B/P (MAP) Pulse Ox O2 Delivery O2 Flow Rate FiO2 07/14/25 21:16 97.8 72 18 185/68 (107) 98 97.8 07/14/25 20:40 68 18 96 Nasal Cannula* 3 32 07/14/25 20:35 193/127 07/14/25 20:34 68 18 193/127 07/14/25 20:20 98.3 66 20 185/76 98 2.0 98.3 07/14/25 20:20 97.4 63 18 192/74 (113) 98 97.4 07/14/25 20:11 72 20 100 07/14/25 20:06 98 Nasal Cannula* 2 28 07/14/25 20:06 66 20 98 07/14/25 20:06 98 Nasal Cannula 2.0 07/14/25 20:00 70 07/14/25 19:04 185/76 07/14/25 16:10 98 Nasal Cannula* 3 32 07/14/25 16:10 16 98 Nasal Cannula* 4 36 07/14/25 14:42 68 Laboratory Tests Test 07/14/25 13:47 White Blood Count 8.5 10^3/uL (4.4-10.8) Medications Medications Dose Ordered Sig/Miguel Route Start Time Stop Time Status Last Admin Dose Admin Acetaminophen/ Hydrocodone Bitart 1 tab ONCE ONCE PO 07/14/25 17:45 07/14/25 17:46 DC 07/14/25 18:59 1 TAB Albuterol 2.5 mg ONCE ONCE NEB 07/14/25 16:00 07/14/25 16:01 DC 07/14/25 16:10 2.5 MG Albuterol 2.5 mg Q6HPRN PRN NEB 07/14/25 19:30 07/14/25 20:06 2.5 MG Albuterol 2.5 mg STK-MED ONCE .ROUTE 07/14/25 20:00 07/14/25 19:56 DC 07/14/25 19:58 2.5 MG Atorvastatin Calcium 40 mg HS PO 07/14/25 22:00 07/14/25 20:34 40 MG Clonidine HCl 0.2 mg TID PO 07/14/25 22:00 07/14/25 20:35 0.2 MG Furosemide 60 mg ONCE ONCE IV 07/14/25 16:00 07/14/25 16:01 DC 07/14/25 19:04 60 MG Ipratropium Otoe 1 mg ONCE ONCE NEB 07/14/25 16:00 07/14/25 16:01 DC 07/14/25 16:10 1 MG Morphine Sulfate 4 mg Q4HPRN PRN IV 07/14/25 20:15 07/14/25 20:34 4 MG Ondansetron HCl 4 mg Q4HP PRN IV 07/14/25 19:30 07/14/25 20:33 4 MG Assessment/Plan Assessment/Plan Assessment Clear to overload End-stage renal disease, dialysis dependent CHF exacerbation Hypertension Elevated troponin, demand ischemia Noncompliant Plan Admit the patient to telemetry to the hospitalist Nephrology consultation for dialysis Resume home medications Continue treatment per orders. Plan discussed with: Patient My Orders Orders - YENI VEGA Procedure Category Date Status Time Aspirin Tablet PHA 07/15/25 In Process 10:00 Albuterol Medneb PHA 07/14/25 In Process (Ventolin Medneb) 19:30 Atorvastatin (Lipitor) PHA 07/14/25 In Process 22:00 Clonidine Hcl Tablet PHA 07/14/25 In Process (Catapres Tablet) 22:00 Hydralazine Hcl PHA 07/15/25 In Process Tablet (Apresoline 10:00 Nifedipine Er PHA 07/15/25 In Process (Procardia Xl 10:00 Sevelamer (Renagel) PHA 07/15/25 In Process 08:00 Tamsulosin PHA 07/15/25 In Process Hydrochloride (Flomax) 18:00 *[facility] CONS 07/14/25 Transmitted -[place] 19:25 Basic Metabolic Panel LAB 07/15/25 Verified 04:00 Admit ADMIT 07/14/25 Transmitted 19:25 Renal DIET 07/15/25 Transmitted Standard(2gna,3gk,Lopho) Breakfast Ondansetron Hcl PHA 07/14/25 In Process (Zofran) 19:30 Complete Blood Count LAB 07/15/25 Verified 04:00 Cardiac DIET 07/15/25 Transmitted Diet-2gna,Lofat,Lochol Breakfast Condition: Fair RAÚL 07/14/25 In Process 19:25 Acetaminophen Tablet PHA 07/14/25 In Process (Tylenol Tablet) 19:30 Bedrest With Bathroom RAÚL 07/14/25 In Process Privileg 19:25 Nitroglycerin PHA 07/14/25 In Process Sublingual (Ntrostat 19:30 Morphine Sulfate PHA 07/14/25 In Process Injection 19:30 Stat Ekg For Chest RAÚL 07/14/25 In Process Pain 19:25 Notify Md Of Changes RAÚL 07/14/25 In Process From Base 19:25 Nonprofit Manager For [facility] 07/14/25 In Process 24 Hours 19:25 Emergency Dysrhythmia [facility] 07/14/25 In Process Protocol 19:25 Rhythm Strips Once [facility] 07/14/25 In Process Every Shift 19:25 Oxygen By Nasal RT 07/14/25 Transmitted Cannula 19:25 Date of Service: Jul 14, 2025 Billing Provider: SUKI VEGA Common Visit Codes: [id number] INP/OBS CARE (HIGH) YENI VEGA AGACNJerrell Jul 14, 2025 22:00
[2025-07-14 22:09] VITALS: BP 197/80; PULSE 74; RESP 18; O2SAT 96
[2025-07-15] VITALS (13 sets, daily range): BP systolic 134–194; BP diastolic 67–92; PULSE 66–77; RESP 18–20; TEMP 97.5–98; O2SAT 91–100
[2025-07-15 05:11] LABS: Sodium 141 mmol/L (136-145)
[2025-07-15 05:12] LABS: Anion Gap 16 (5-15)
[2025-07-15 05:13] LABS: Calcium 8.6 mg/dL (8.7-10.4); Carbon Dioxide 18 mmol/L (20-31); Chloride 107 mmol/L (98-107)
[2025-07-15 05:14] LABS: Potassium 5.7 mmol/L (3.5-5.1)
[2025-07-15 05:15] LABS: Hematocrit 29.7 % (41.0-53.0); Hemoglobin 9.6 g/dL (13.5-17.5); Mean Corpuscular Hemoglobin 26.7 pg (28.0-32.0); Mean Corpuscular Volume 82.5 fL (80.0-100.0); Nucleated Red Blood Cells % 0.0 %
[2025-07-15 05:17] LABS: BUN/Creatinine Ratio 9.5 (10.0-20.0); Glucose 101 mg/dL (74-106)
[2025-07-15 05:21] LABS: Blood Urea Nitrogen 95 mg/dL (9-23)
[2025-07-15] MEDS: SODIUM ZIRCONIUM CYCL 10 GM PAK PO ONE (06:43)
[2025-07-15] MEDS: SEVELAMER 800 MG TAB PO SCH ×2 (09:23→18:15)
[2025-07-15] MEDS ORDERED: EPOETIN ALFA-EPBX 10,000 UNIT/1ML VIAL SC SCH (10:00)
[2025-07-15] MEDS ORDERED: SERT25TA28 PO ×2 (10:24)
--- NOTE | 2025-07-15 10:26 | DVHCONRES ---
Date Seen: Jul 15, 2025 Resident Creating Document: GEORGI CRUM RESIDENT Referring Physician SUREKHA Briggs Reason for Consultation ESRD History of Present Illness This is a 70 years old male with past medical history of ESRD on hemodialysis 3 times a week, hypertension, CAD, CVA, COPD, on home oxygen, CHF presented to the ED for an evaluation of chest pain. According to the patient since yesterday he started having left-sided sharp chest pain, 8/10 localized, constant chest pain associated with shortness of breath. He also mentioned missed last 2 dialysis cessation because he was not feeling well. He denies fever, chills, cough, sputum, dizziness, diaphoresis, nausea, vomiting, abdominal pain or any altered bowel habit. Patient was seen and examined on the bedside. He is alert, oriented x3. complaint of chest pain and shortness of breath. In the ED EKG revealed multiple PVC, ST-T changes suggestive of ischemia and troponin was mildly elevated and became flat. Past Medical History ESRD on hemodialysis, hypertension, CAD, CVA, COPD, CHF Past Surgical History AV fistula Family History: Arthritis G8 MOTHER Cardiovascular disease G8 FATHER Diabetes during Diabetes mellitus G8 MOTHER G8 FATHER Allergies: Coded Allergies: NO KNOWN ALLERGIES (Unverified , 10/17/22) Home Meds Active Scripts Atorvastatin Calcium (ATORVASTATIN CALCIUM) 40 Mg Tab, 40 MG PO DAILY for 30 Days, #30 TAB 0 Refills Prov:RANJAN SZYMANSKI RESIDENT 11/10/24 Reported Medications Furosemide (Furosemide) 40 Mg Tab, 1 TAB PO DAILY for 90 Days, #90 07/15/25 Sertraline Hcl (Sertraline Hcl) 25 Mg Tab, 1 TAB PO QAM for 60 Days, #60 07/15/25 Nifedipine (Nifedipine Er) 90 Mg Tab, 1 TAB PO DAILY for 90 Days, #90 07/15/25 Clonidine Hydrochloride (Clonidine Hydrochloride) 0.3 Mg Tab, 1 TAB PO Q8HR PRN for BP GREATER THAN 180 for 90 Days, #270 11/06/24 Sevelamer Carbonate (Renvela) 800 Mg Tab, 2 TAB PO TIDWM for 90 Days, #540 10/27/24 Alprazolam (Alprazolam) 1 Mg Tab, 1 TAB PO DAILYPRN PRN for ANXIETY for 30 Days, #30 1/7/25 Tamsulosin Hcl (Tamsulosin Hcl) 0.4 Mg Cap, 1 CAP PO DAILY 01/14/24 Hydralazine Hcl (Hydralazine Hcl) 100 Mg Tab, 1 TAB PO Q8HR for BP GREATER THAN 140/80 for 30 Days, #30 01/14/24 Discontinued Reported Medications Sertraline HCl (Sertraline HCl) 50 Mg Tab, 50 MG PO DAILY, TAB 11/06/24 Nifedipine (Nifedipine Er) 60 Mg Tab, 1 TAB PO DAILY 01/14/24 Current Medications Current Medications Medications (Trade) Dose Ordered Sig/Miguel Route PRN Reason Start Time Stop Time Status Last Admin Aspirin 162 mg DAILY PO 07/15/25 10:00 07/15/25 09:24 Albuterol (Ventolin Medneb) 2.5 mg Q6HPRN PRN NEB SHORTNESS OF BREATH 07/14/25 19:30 07/14/25 20:06 Atorvastatin Calcium (Lipitor) 40 mg HS PO 07/14/25 22:00 07/14/25 20:34 Clonidine HCl (Catapres Tablet) 0.2 mg TID PO 07/14/25 22:00 07/15/25 04:49 Hydralazine HCl (Apresoline Tablet) 100 mg DAILY PO 07/15/25 10:00 07/15/25 09:25 Nifedipine (Procardia Xl (Time-Release)) 60 mg DAILY PO 07/15/25 10:00 07/15/25 09:25 Sevelamer HCl (Renagel) 800 mg TIDWM PO 07/15/25 08:00 07/15/25 09:23 Tamsulosin HCl (Flomax) 0.4 mg QPM PO 07/15/25 18:00 Ondansetron HCl (Zofran) 4 mg Q4HP PRN IV NAUSEA / VOMITING 07/14/25 19:30 07/15/25 01:31 Acetaminophen (Tylenol Tablet) 650 mg Q6HP PRN PO PAIN SCALE 1-3 OR TEMP>100.4 07/14/25 19:30 Nitroglycerin (Ntrostat Sublingual) 0.4 mg Q5MINP PRN SL FOR CHEST PAIN 07/14/25 19:30 Morphine Sulfate 2 mg Q30M PRN IV FOR CHEST PAIN 07/14/25 19:30 Morphine Sulfate 4 mg Q4HPRN PRN IV SEVERE PAIN (7-10 PAIN SCALE) 07/14/25 20:15 07/15/25 09:29 Nifedipine (Procardia Xl (Time-Release)) 60 mg DAILY PO 07/15/25 10:00 UNV Epoetin Willard-epbx (Retacrit) 10,000 unit [facility] 07/15/25 10:00 Review of Systems Constitutional: No: Fever, Chills, Sweats, Weakness, Malaise, Other Eyes: No: Pain, Vision change, Conjunctivae inflammation, Eyelid inflammation, Other, Redness ENT: No: Ear pain, Ear discharge, Nose pain, Nose discharge, Nose congestion, Mouth pain, Mouth swelling, Throat pain, Throat swelling, Other Respiratory: Shortness of breath, improving No: Cough, Dry,Wheezing, Hemoptysis, Pleuritic Pain, Sputum, Wheezing, Other Cardiovascular: Chest Pain, No Palpitations, Orthopnea, Paroxysmal Noc. Dyspnea, Edema, Lt Headedness, Other Gastrointestinal: No: Nausea, Vomiting, Abdominal Pain, Diarrhea, Constipation, Melena, Hematochezia, Other Musculoskeletal: No: other, neck pain, shoulder pain, arm pain, back pain, hand pain, leg pain, foot pain Neurological:; No: Weakness, Numbness, Incoordination, Change in speech, Confusi on, Seizures Vital Signs Vital Signs Date Time Temp Pulse Resp B/P (MAP) Pulse Ox O2 Delivery O2 Flow Rate FiO2 07/15/25 09:29 79 18 171/89 07/15/25 08:54 97.9 92 97.9 07/15/25 01:30 Nasal Cannula* 2 28 Physical Exam Physical examination: General Appearance: Alert, Oriented X3, Cooperative, No acute distress HEENT: Atraumatic, PERRLA, EOMI, Mucous membrane moist/pink Respiratory: Clear to auscultation, Normal air movement Cardiovascular: Regular rate, Normal S1, Normal S2, No murmurs, no chest wall tenderness Abdominal: Normal bowel sounds, Soft, No tenderness, No hepatospenomegaly, No masses Extremities: Av fistula in left upper arm, No clubbing, No cyanosis, No edema, Normal pulses, No tenderness/swelling Skin: No rashes, No breakdown, No significant lesion Neuro: Normal gait, Normal speech, Strength at 5/5 X4 ext, Normal tone, Sensation intact, Cranial nerves 3-12 NL, Reflexes 2+ Psych/Mental Status: Mental status NL, Mood NL Labs/Diagnostic Data Labs Test 07/15/25 04:37 07/14/25 19:00 07/14/25 17:16 07/14/25 13:47 Range/Units White Blood Count 8.3 4.4-10.8 10^3/uL Red Blood Count 3.60 L 4.5-5.90 10^6/uL Hemoglobin 9.6 L 13.5-17.5 g/dL Hematocrit 29.7 L 41.0-53.0 % Mean Corpuscular Volume 82.5 80.0-100.0 fL Mean Corpuscular Hemoglobin 26.7 L 28.0-32.0 pg Mean Corpuscular Hemoglobin Concent 32.4 32.0-36.0 g/dL Red Cell Distribution Width 17.1 H 11.8-14.3 % Platelet Count 298 140-450 10^3/uL Mean Platelet Volume 8.4 6.9-10.8 fL Neutrophils (%) (Auto) 80.2 H 37.0-80.0 % Lymphocytes (%) (Auto) 8.6 L 10.0-50.0 % Monocytes (%) (Auto) 6.1 0.0-12.0 % Eosinophils (%) (Auto) 5.0 0.0-7.0 % Basophils (%) (Auto) 0.1 0.0-2.0 % Neutrophils # (Auto) 6.6 1.6-8.6 10 ^3/uL Lymphocytes # (Auto) 0.7 0.4-5.4 10 ^3/uL Monocytes # (Auto) 0.5 0-1.3 10 ^3/uL Eosinophils # (Auto) 0.4 0-0.8 10 ^3/uL Basophils # (Auto) 0 0-0.2 10 ^3/uL Nucleated Red Blood Cells 0.0 % Sodium Level 141 136-145 mmol/L Potassium Level 5.7 *H 3.5-5.1 mmol/L Chloride Level 107 98-107 mmol/L Carbon Dioxide Level 18 L 20-31 mmol/L Anion Gap 16 H 5-15 Blood Urea Nitrogen 95 *H 9-23 mg/dL Creatinine 10.05 *H 0.700-1.30 mg/dL Glomerular Filtration Rate Calc 5 >90 mL/min BUN/Creatinine Ratio 9.5 L 10.0-20.0 Serum Glucose 101 74-106 mg/dL Calcium Level 8.6 L 8.7-10.4 mg/dL POC Glucose 87 70-106 mg/dl Troponin I High Sensitivity 168 *H </=54 ng/L Total Bilirubin < 0.2 L 0.2-1.0 mg/dL Aspartate Amino Transferase (AST) 18 13-40 U/L Alanine Aminotransferase (ALT) 14 7-40 U/L Alkaline Phosphatase 76 46-116 U/L B-Type Natriuretic Peptide 4992.20 0-100 pg/mL Total Protein 6.1 5.7-8.2 g/dL Albumin 3.5 3.2-4.8 g/dL Assessment Assessment and plan: # ESRD on hemodialysis # Hyperkalemia # Hyperphosphatemia # Acute chest pain rule out ACS # Possible NSTEMI type 2 due to above # Acute on chronic diastolic heart failure # Anemia of chronic disease Plan: - Hyperkalemia protocol management - Hemodialysis today - Resume antihypertensive for optimize control of blood pressure - Other management as per primary - Avoid nephrotoxic medication - strict I&O Thank you so much for the opportunity to consult on your patient. Nephro team will follow the patient. In case of any questions or concerns please feel free to reach out. Plan discussed with Dr. Degroot . The patient and caregiver team agreed to the plan. Plan discussed with: Patient, Other (RN) GEORGI CRUM RESIDENT Jul 15, 2025 10:26
[2025-07-15] MEDS: FUROSEMIDE 20 MG/2 ML VIAL IV ONE (10:33)
[2025-07-15] MEDS: SODIUM BICARB 8.4% 50Meq/50ml SYR Vial IV ONE (10:34)
[2025-07-15] MEDS: DEXTROSE (50%) 50ML SYRG IV ONE (10:34)
[2025-07-15 10:49] LABS: Iron 82.0 ug/dL (65-175)
[2025-07-15] MEDS: ALBUTEROL SULF 2.5 MG/0.5ML(0.5%) NEB SOLN NEB ONE (10:50)
[2025-07-15 10:52] LABS: Total Iron Binding Capacity 223.0 ug/dL (250-425)
[2025-07-15] MEDS: InsuLIN REG 1unit/0.01ml Soln (100units/ml) IV ONE (10:58)
--- NOTE | 2025-07-15 13:53 | DVHPN2 ---
Subjective 70-year-old male history of end-stage renal disease on hemodialysis came with chest pain and shortness of breaths because he missed the last 2 sessions of dialysis, last dialysis was 6 days ago Changes from previous H/P or p: Changes Objective Vitals Vital Signs Date Time Temp Pulse Resp B/P (MAP) Pulse Ox O2 Delivery O2 Flow Rate FiO2 07/15/25 13:00 97.8 75 20 170/68 (102) 97 97.8 07/15/25 10:50 Nasal Cannula 2.0 07/15/25 10:50 28 Intake/Output Intake and Output 07/15/25 07:00 Intake Total 350 ml Balance 350 ml Intake Oral 350 ml # Voids 2 General Appearance: Alert, Oriented X3, Cooperative, No acute distress Lungs: Other (Bilateral rhonchi) Cardiovascular: Regular rate, Normal S1, Normal S2 Abdomen: Normal bowel sounds, Soft, No tenderness Extremities: Other (Trace edema bilaterally in the lower extremities) Medications Current Medications Medications Dose Ordered Sig/Miguel Route Start Time Stop Time Status Last Admin Dose Admin Aspirin 162 mg DAILY PO 07/15/25 10:00 07/15/25 09:24 162 MG Albuterol 2.5 mg Q6HPRN PRN NEB 07/14/25 19:30 07/14/25 20:06 2.5 MG Atorvastatin Calcium 40 mg HS PO 07/14/25 22:00 07/14/25 20:34 40 MG Clonidine HCl 0.2 mg TID PO 07/14/25 22:00 07/15/25 04:49 0.2 MG Hydralazine HCl 100 mg DAILY PO 07/15/25 10:00 07/15/25 09:25 100 MG Nifedipine 60 mg DAILY PO 07/15/25 10:00 07/15/25 09:25 60 MG Sevelamer HCl 800 mg TIDWM PO 07/15/25 08:00 07/15/25 09:23 800 MG Tamsulosin HCl 0.4 mg QPM PO 07/15/25 18:00 Ondansetron HCl 4 mg Q4HP PRN IV 07/14/25 19:30 07/15/25 01:31 4 MG Acetaminophen 650 mg Q6HP PRN PO 07/14/25 19:30 Nitroglycerin 0.4 mg Q5MINP PRN SL 07/14/25 19:30 Morphine Sulfate 2 mg Q30M PRN IV 07/14/25 19:30 Morphine Sulfate 4 mg Q4HPRN PRN IV 07/14/25 20:15 07/15/25 09:29 4 MG Nifedipine 60 mg DAILY PO 07/15/25 10:00 UNV Epoetin Willard-epbx 10,000 unit TUTHSA@2100 SC 07/15/25 21:00 Laboratory Results Laboratory Tests 07/15/25 04:37 Chemistry Test 07/15/25 04:37 Calcium Level 8.6 mg/dL (8.7-10.4) L Phosphorus Level 8.7 mg/dL (2.4-5.1) H Microbiology Microbiology Date/Time Source Procedure Growth Status 07/15/25 00:30 Nose MRSA Screen - Final Methicillin Resistant S.aureus Complete Assessment/Plan Assessment/Plan Acute pulmonary edema due to fluid overload End-stage renal disease on hemodialysis Noncompliance with dialysis Hypertension CAD CVA COPD Diastolic heart failure, acute on chronic, preserved ejection fraction Chronic anemia of chronic kidney disease Hyperkalemia Plan Hemodialysis today Hyperkalemia regimen was given Oxygen as needed Med neb treatments as needed Monitor closely Plan discussed with: Patient Date of Service: Jul 15, 2025 Billing Provider: KILO MAHER MD Common Visit Codes: NOT BILLABLE KILO MAHER MD Jul 15, 2025 13:53
[2025-07-15] MEDS: TAMSULOSIN HYDROCHLORIDE 0.4 MG CAP PO SCH (18:03)
[2025-07-15] MEDS: EPOETIN ALFA-EPBX 10,000 UNIT/1ML VIAL SC SCH (21:32)
[2025-07-15] MEDS: MUPIROCIN 2% OINT 15gm or 22gm FOR MRSA NARES EACHNOSTRI SCH (21:34)
[2025-07-16] VITALS (10 sets, daily range): BP systolic 117–225; BP diastolic 78–87; PULSE 71–85; RESP 18–20; TEMP 98.2–99.1; O2SAT 92–97
[2025-07-16 05:15] LABS: Anion Gap 13 (5-15); Carbon Dioxide 26 mmol/L (20-31); Chloride 101 mmol/L (98-107); Potassium 4.3 mmol/L (3.5-5.1); Sodium 140 mmol/L (136-145)
[2025-07-16 05:17] LABS: Calcium 8.5 mg/dL (8.7-10.4)
[2025-07-16 05:21] LABS: Glucose 121 mg/dL (74-106)
[2025-07-16 05:22] LABS: BUN/Creatinine Ratio 7.3 (10.0-20.0); Blood Urea Nitrogen 47 mg/dL (9-23); Magnesium 1.9 mg/dL (1.6-2.6)
[2025-07-16 11:06] LABS: Hepatitis B Surface Antigen Negative (Negative)
[2025-07-16 11:07] LABS: Hepatitis C Antibody Positive (Negative)
--- NOTE | 2025-07-16 11:12 | DVHPN2 ---
Progress Note Date Seen: Jul 16, 2025 Resident Creating Document: GEORGI CRUM RESIDENT Medical Necessity Reason Pt with a Central, PICC or Fol: No Subjective Review of Systems Patient was seen and examined on the bedside. He is alert, oriented x3. complaint of chest pain and shortness of breath. In the ED EKG revealed multiple PVC, ST-T changes suggestive of ischemia and troponin was mildly elevated and became flat. underwent hemodialysis yesterday and 3 L ultrafiltration removed. scheduled for another session of dialysis today. Objective vital signs Vital Sign Date Time Temp Pulse Resp B/P (MAP) Pulse Ox O2 Delivery O2 Flow Rate FiO2 07/16/25 10:14 146/80 07/16/25 08:51 98.2 81 20 93 98.2 07/16/25 08:39 Nasal Cannula 2.0 07/16/25 08:39 28 Total Intake and Output 07/15/25 07/15/25 07/16/25 15:00 23:00 07:00 Intake Total 500 ml 0 ml Output Total 850 ml Balance -350 ml 0 ml medications Current Medications Medications Dose Ordered Sig/Miguel Route Start Time Stop Time Status Last Admin Dose Admin Aspirin 162 mg DAILY PO 07/15/25 10:00 07/16/25 10:14 162 MG Albuterol 2.5 mg Q6HPRN PRN NEB 07/14/25 19:30 07/14/25 20:06 2.5 MG Atorvastatin Calcium 40 mg HS PO 07/14/25 22:00 07/15/25 21:33 40 MG Clonidine HCl 0.2 mg TID PO 07/14/25 22:00 07/16/25 05:14 0.2 MG Hydralazine HCl 100 mg DAILY PO 07/15/25 10:00 07/16/25 10:13 100 MG Nifedipine 60 mg DAILY PO 07/15/25 10:00 07/16/25 10:14 60 MG Tamsulosin HCl 0.4 mg QPM PO 07/15/25 18:00 07/15/25 18:03 0.4 MG Ondansetron HCl 4 mg Q4HP PRN IV 07/14/25 19:30 07/15/25 01:31 4 MG Acetaminophen 650 mg Q6HP PRN PO 07/14/25 19:30 Nitroglycerin 0.4 mg Q5MINP PRN SL 07/14/25 19:30 Morphine Sulfate 2 mg Q30M PRN IV 07/14/25 19:30 Morphine Sulfate 4 mg Q4HPRN PRN IV 07/14/25 20:15 07/16/25 06:55 4 MG Nifedipine 60 mg DAILY PO 07/15/25 10:00 UNV Epoetin Willard-epbx 10,000 unit TUTHSA@2100 SC 07/15/25 21:00 07/15/25 21:32 10,000 UNIT Mupirocin 1 applic BID EACHNOSTRI 07/15/25 22:00 07/20/25 21:59 07/16/25 10:12 1 APPLIC Sevelamer HCl 1,600 mg TIDWM PO 07/15/25 18:15 07/16/25 08:30 1,600 MG Examination Physical examination: General Appearance: Alert, Oriented X3, Cooperative, No acute distress HEENT: Atraumatic, PERRLA, EOMI, Mucous membrane moist/pink Respiratory: Clear to auscultation, Normal air movement Cardiovascular: Regular rate, Normal S1, Normal S2, No murmurs, no chest wall tenderness Abdominal: Normal bowel sounds, Soft, No tenderness, No hepatospenomegaly, No masses Extremities: Av fistula in left upper arm, No clubbing, No cyanosis, No edema, Normal pulses, No tenderness/swelling Skin: No rashes, No breakdown, No significant lesion Neuro: Normal gait, Normal speech, Strength at 5/5 X4 ext, Normal tone, Sensation intact, Cranial nerves 3-12 NL, Reflexes 2+ Psych/Mental Status: Mental status NL, Mood NL laboratory and microbiology Laboratory Tests 07/16/25 04:40 07/15/25 04:37 Test 07/16/25 04:40 Range/Units Serum Glucose 121 H 74-106 mg/dL Microbiology Date/Time Source Procedure Growth Status 07/15/25 00:30 Nose MRSA Screen - Final Methicillin Resistant S.aureus Complete Labs and/or images reviewed: Labs reviewed by me, Image(s) reviewed by me Problem List/Assessment/Plan Problem List/Assessment/Plan Assessment and plan: # ESRD on hemodialysis # Hyperkalemia # Hyperphosphatemia # Acute chest pain rule out ACS # Possible NSTEMI type 2 due to above # Acute on chronic diastolic heart failure # Anemia of chronic disease Plan: - Underwent hemodialysis yesterday and 3 L ultrafiltration removed - Scheduled for another session of hemodialysis today - Sevelamer 1600 mg PO TID - Resume antihypertensives for optimize control of blood pressure - Other management as per primary - Avoid nephrotoxic medication - strict I&O Thank you so much for the opportunity to consult on your patient. Nephro team will follow the patient. In case of any questions or concerns please feel free to reach out. Plan discussed with Dr. Farley . The patient and caregiver team agreed to the plan. Plan discussed with: Patient, Other (RN) My Orders My Orders Orders - GEORGI RCUM Procedure Category Date Status Time Mupirocin 2% Oint PHA 07/15/25 In Process Mrsa Nares (Bactroban 22:00 GEORGI CRUM RESIDENT Jul 16, 2025 11:12
--- NOTE | 2025-07-16 12:37 | DVHPN2 ---
Subjective The patient is seen and examined at bedside. Still complain of shortness for breath. Reviewed: Care Plan, H&P, Labs, Medications, Previous Orders, Radiology Changes from previous H/P or p: No Changes Objective Vitals Vital Signs Date Time Temp Pulse Resp B/P (MAP) Pulse Ox O2 Delivery O2 Flow Rate FiO2 07/16/25 11:12 77 20 213/74 07/16/25 08:51 98.2 93 98.2 07/16/25 08:39 Nasal Cannula 2.0 07/16/25 08:39 28 Intake/Output Intake and Output 07/16/25 07:00 Intake Total 500 ml Output Total 850 ml Balance -350 ml Intake Oral 500 ml Output Urine Total 850 ml General Appearance: Alert, Oriented X3, Cooperative, No acute distress HEENT: Atraumatic, PERRLA, EOMI, Mucous membr. moist/pink Neck: Supple Lungs: Other (Bilateral rhonchi) Cardiovascular: Regular rate, Normal S1, Normal S2 Abdomen: Normal bowel sounds, Soft, No tenderness Extremities: Other (Trace edema bilaterally in the lower extremities) Medications Current Medications Medications Dose Ordered Sig/Miguel Route Start Time Stop Time Status Last Admin Dose Admin Aspirin 162 mg DAILY PO 07/15/25 10:00 07/16/25 10:14 162 MG Albuterol 2.5 mg Q6HPRN PRN NEB 07/14/25 19:30 07/14/25 20:06 2.5 MG Atorvastatin Calcium 40 mg HS PO 07/14/25 22:00 07/15/25 21:33 40 MG Clonidine HCl 0.2 mg TID PO 07/14/25 22:00 07/16/25 05:14 0.2 MG Hydralazine HCl 100 mg DAILY PO 07/15/25 10:00 07/16/25 10:13 100 MG Nifedipine 60 mg DAILY PO 07/15/25 10:00 07/16/25 10:14 60 MG Tamsulosin HCl 0.4 mg QPM PO 07/15/25 18:00 07/15/25 18:03 0.4 MG Ondansetron HCl 4 mg Q4HP PRN IV 07/14/25 19:30 07/15/25 01:31 4 MG Acetaminophen 650 mg Q6HP PRN PO 07/14/25 19:30 Nitroglycerin 0.4 mg Q5MINP PRN SL 07/14/25 19:30 Morphine Sulfate 2 mg Q30M PRN IV 07/14/25 19:30 Morphine Sulfate 4 mg Q4HPRN PRN IV 07/14/25 20:15 07/16/25 11:12 4 MG Nifedipine 60 mg DAILY PO 07/15/25 10:00 UNV Epoetin Willard-epbx 10,000 unit TUTHSA@2100 SC 07/15/25 21:00 07/15/25 21:32 10,000 UNIT Mupirocin 1 applic BID EACHNOSTRI 07/15/25 22:00 07/20/25 21:59 07/16/25 10:12 1 APPLIC Sevelamer HCl 1,600 mg TIDWM PO 07/15/25 18:15 07/16/25 08:30 1,600 MG Laboratory Results Laboratory Tests 07/15/25 04:37 07/16/25 04:40 Chemistry Test 07/16/25 04:40 Calcium Level 8.5 mg/dL (8.7-10.4) L Magnesium Level 1.9 mg/dL (1.6-2.6) Microbiology Microbiology Date/Time Source Procedure Growth Status 07/15/25 00:30 Nose MRSA Screen - Final Methicillin Resistant S.aureus Complete Labs and/or images reviewed: Labs reviewed by me Assessment/Plan Assessment/Plan Acute pulmonary edema due to fluid overload End-stage renal disease on hemodialysis Noncompliance with dialysis Hypertension CAD CVA COPD Diastolic heart failure, acute on chronic, preserved ejection fraction Chronic anemia of chronic kidney disease Hyperkalemia Plan Continuing current management. Hemodialysis per schedule Hyperkalemia regimen was given Oxygen as needed to keep saturation oxygen above 92% Med neb q.6 hours as needed for shortness for breath This medical document was created using an electronic medical record system with M[employer]M [employer] direct computerized dictation system. Although this document has been carefully reviewed, there may still be some phonetic and typographical errors. These areas are purely typographical due to imperfections of the software programs, and do not reflect any compromise in the patient's medical care. Plan discussed with: Patient Date of Service: Jul 16, 2025 Billing Provider: ZAHRA MARADIAGA MD Common Visit Codes: [id number] INP/OBS CARE(HIGH) ZAHRA MARADIAGA MD Jul 16, 2025 12:37
[2025-07-17] VITALS (10 sets, daily range): BP systolic 120–221; BP diastolic 86–97; PULSE 72–89; RESP 17–18; TEMP 97.6–98.3; O2SAT 93–97
[2025-07-17 08:15] LABS: Hematocrit 29.3 % (41.0-53.0); Hemoglobin 9.5 g/dL (13.5-17.5); Mean Corpuscular Hemoglobin 27.0 pg (28.0-32.0); Mean Corpuscular Volume 83.1 fL (80.0-100.0); Nucleated Red Blood Cells % 0.0 %
[2025-07-17 08:29] LABS: Anion Gap 12 (5-15); Carbon Dioxide 27 mmol/L (20-31); Chloride 99 mmol/L (98-107); Potassium 4.6 mmol/L (3.5-5.1); Sodium 138 mmol/L (136-145)
[2025-07-17 08:30] LABS: Calcium 8.7 mg/dL (8.7-10.4)
[2025-07-17 08:35] LABS: BUN/Creatinine Ratio 5.3 (10.0-20.0); Glucose 87 mg/dL (74-106)
[2025-07-17 08:36] LABS: Blood Urea Nitrogen 31 mg/dL (9-23)
[2025-07-17] MEDS: MORPHINE SULFATE INJ 2 MG/ml SYRG IV PRN (08:45)
--- NOTE | 2025-07-17 13:15 | DVHPN2 ---
Subjective The patient is seen and examined at bedside. Still complain of shortness for breath. Reviewed: Care Plan, H&P, Labs, Medications, Previous Orders, Radiology Changes from previous H/P or p: No Changes Objective Vitals Vital Signs Date Time Temp Pulse Resp B/P (MAP) Pulse Ox O2 Delivery O2 Flow Rate FiO2 07/17/25 12:59 220/93 07/17/25 12:58 86 18 07/17/25 12:57 97.6 95 97.6 07/16/25 22:34 Nasal Cannula 3.0 07/16/25 22:34 32 Intake/Output Intake and Output 07/17/25 07:00 Intake Total 569 ml Output Total 750 ml Balance -181 ml Intake Oral 569 ml Output Urine Total 750 ml General Appearance: Alert, Oriented X3, Cooperative, No acute distress HEENT: Atraumatic, PERRLA, EOMI, Mucous membr. moist/pink Neck: Supple Lungs: Other (Bilateral rhonchi) Cardiovascular: Regular rate, Normal S1, Normal S2 Abdomen: Normal bowel sounds, Soft, No tenderness Extremities: Other (Trace edema bilaterally in the lower extremities) Medications Current Medications Medications Dose Ordered Sig/Miguel Route Start Time Stop Time Status Last Admin Dose Admin Aspirin 162 mg DAILY PO 07/15/25 10:00 07/17/25 08:37 162 MG Albuterol 2.5 mg Q6HPRN PRN NEB 07/14/25 19:30 07/14/25 20:06 2.5 MG Atorvastatin Calcium 40 mg HS PO 07/14/25 22:00 07/16/25 21:17 40 MG Clonidine HCl 0.2 mg TID PO 07/14/25 22:00 07/17/25 12:59 0.2 MG Hydralazine HCl 100 mg DAILY PO 07/15/25 10:00 07/17/25 08:38 100 MG Nifedipine 60 mg DAILY PO 07/15/25 10:00 07/17/25 08:37 60 MG Tamsulosin HCl 0.4 mg QPM PO 07/15/25 18:00 07/16/25 18:21 0.4 MG Ondansetron HCl 4 mg Q4HP PRN IV 07/14/25 19:30 07/17/25 12:58 4 MG Acetaminophen 650 mg Q6HP PRN PO 07/14/25 19:30 Nitroglycerin 0.4 mg Q5MINP PRN SL 07/14/25 19:30 Morphine Sulfate 2 mg Q30M PRN IV 07/14/25 19:30 Morphine Sulfate 4 mg Q4HPRN PRN IV 07/14/25 20:15 07/17/25 12:58 4 MG Nifedipine 60 mg DAILY PO 07/15/25 10:00 UNV Epoetin Willard-epbx 10,000 unit TUTHSA@2100 SC 07/15/25 21:00 07/15/25 21:32 10,000 UNIT Mupirocin 1 applic BID EACHNOSTRI 07/15/25 22:00 07/20/25 21:59 07/17/25 10:00 1 APPLIC Sevelamer HCl 1,600 mg TIDWM PO 07/15/25 18:15 07/17/25 12:59 1,600 MG Laboratory Results Laboratory Tests 07/17/25 07:06 Chemistry Test 07/17/25 07:06 Calcium Level 8.7 mg/dL (8.7-10.4) Microbiology Microbiology Date/Time Source Procedure Growth Status 07/15/25 00:30 Nose MRSA Screen - Final Methicillin Resistant S.aureus Complete Labs and/or images reviewed: Labs reviewed by me Assessment/Plan Assessment/Plan Acute pulmonary edema due to fluid overload End-stage renal disease on hemodialysis Noncompliance with dialysis Hypertension CAD CVA COPD Diastolic heart failure, acute on chronic, preserved ejection fraction Chronic anemia of chronic kidney disease Hyperkalemia Plan Continuing current management. Hemodialysis per schedule, HD today and 2.5L of fluid removed today. Hyperkalemia regimen was given Oxygen as needed to keep saturation oxygen above 92% Med neb q.6 hours as needed for shortness for breath This medical document was created using an electronic medical record system with M[employer]M [employer] direct computerized dictation system. Although this document has been carefully reviewed, there may still be some phonetic and typographical errors. These areas are purely typographical due to imperfections of the software programs, and do not reflect any compromise in the patient's medical care. Plan discussed with: Patient My Orders Orders - ZAHRA MARADIAGA MD Procedure Category Date Status Time Complete Blood Count LAB 07/18/25 Verified 05:00 Complete Blood Count LAB 07/19/25 Verified 05:00 Complete Blood Count LAB 07/20/25 Verified 05:00 Complete Blood Count LAB 07/21/25 Verified 05:00 Basic Metabolic Panel LAB 07/18/25 Verified 05:00 Basic Metabolic Panel LAB 07/19/25 Verified 05:00 Basic Metabolic Panel LAB 07/20/25 Verified 05:00 Basic Metabolic Panel LAB 07/21/25 Verified 05:00 Date of Service: Jul 17, 2025 Billing Provider: ZAHRA MARADIAGA MD Common Visit Codes: [id number] INP/OBS CARE(HIGH) ZAHRA MARADIAGA MD Jul 17, 2025 13:15
--- NOTE | 2025-07-17 16:06 | DVHPN2 ---
Progress Note Date Seen: Jul 17, 2025 Medical Necessity Reason Pt with a Central, PICC or Fol: No Subjective Patient reports: No new complaints, Feels better Objective vital signs Vital Sign Date Time Temp Pulse Resp B/P (MAP) Pulse Ox O2 Delivery O2 Flow Rate FiO2 07/17/25 12:59 220/93 07/17/25 12:58 86 18 07/17/25 12:57 97.6 95 97.6 07/17/25 08:00 Nasal Cannula* 3 32 Total Intake and Output 07/16/25 07/16/25 07/17/25 15:00 23:00 07:00 Intake Total 394 ml 175 ml Output Total 150 ml 600 ml Balance 244 ml -425 ml medications Current Medications Medications Dose Ordered Sig/Miguel Route Start Time Stop Time Status Last Admin Dose Admin Aspirin 162 mg DAILY PO 07/15/25 10:00 07/17/25 08:37 162 MG Albuterol 2.5 mg Q6HPRN PRN NEB 07/14/25 19:30 07/14/25 20:06 2.5 MG Atorvastatin Calcium 40 mg HS PO 07/14/25 22:00 07/16/25 21:17 40 MG Clonidine HCl 0.2 mg TID PO 07/14/25 22:00 07/17/25 12:59 0.2 MG Hydralazine HCl 100 mg DAILY PO 07/15/25 10:00 07/17/25 08:38 100 MG Tamsulosin HCl 0.4 mg QPM PO 07/15/25 18:00 07/16/25 18:21 0.4 MG Ondansetron HCl 4 mg Q4HP PRN IV 07/14/25 19:30 07/17/25 12:58 4 MG Acetaminophen 650 mg Q6HP PRN PO 07/14/25 19:30 Nitroglycerin 0.4 mg Q5MINP PRN SL 07/14/25 19:30 Morphine Sulfate 2 mg Q30M PRN IV 07/14/25 19:30 Morphine Sulfate 4 mg Q4HPRN PRN IV 07/14/25 20:15 07/17/25 12:58 4 MG Nifedipine 60 mg DAILY PO 07/15/25 10:00 UNV Epoetin Willard-epbx 10,000 unit TUTHSA@2100 HI 07/15/25 21:00 07/15/25 21:32 10,000 UNIT Mupirocin 1 applic BID EACHNOSTRI 07/15/25 22:00 07/20/25 21:59 07/17/25 10:00 1 APPLIC Sevelamer HCl 1,600 mg TIDWM PO 07/15/25 18:15 07/17/25 12:59 1,600 MG Nifedipine 90 mg DAILY PO 07/18/25 10:00 Examination Gen: NAD, appears stated age Lungs: CTA, bilateral air entry Heart: RRR, normal S1 and S2 Ext: No edema Neuro: Alert and oriented x 4 laboratory and microbiology Laboratory Tests 07/17/25 07:06 Test 07/17/25 07:06 Range/Units Serum Glucose 87 74-106 mg/dL Microbiology Date/Time Source Procedure Growth Status 07/15/25 00:30 Nose MRSA Screen - Final Methicillin Resistant S.aureus Complete Labs and/or images reviewed: Labs reviewed by me Problem List/Assessment/Plan Problem List/Assessment/Plan IMP 1. ESRD on hemodialysis- last HD 07/16 2. Hyperkalemia-resolved 3.Hyperphosphatemia 4. Acute chest pain rule out ACS 5. Acute on chronic diastolic heart failure 6. Anemia of chronic disease Plan: - Will continue to reassess daily for [employer] - BMP in am - Continue phos binders - Strict I&Os - Blood pressure control - Agree with increasing dose of CCB - Will continue to follow Plan discussed with: Patient Dietary Evaluation Review Comments: 1) Continue renal cardiac diet 2) Encourage optimal PO intake 3) Follow-up with cardiology, pulmonology, and nephrology 4) Continue to monitor I&O, labs, and skin integrity Expected Outcomes/Goals: 1) appetite and labs to improve 2) f/u in 3-5 days MARISEL STRONG Jul 17, 2025 16:06
[2025-07-18] VITALS (11 sets, daily range): BP systolic 145–184; BP diastolic 51–109; PULSE 71–78; RESP 16–20; TEMP 97.8–98.7; O2SAT 90–96
[2025-07-18 06:43] LABS: Hematocrit 28.3 % (41.0-53.0); Hemoglobin 9.3 g/dL (13.5-17.5); Mean Corpuscular Hemoglobin 27.1 pg (28.0-32.0); Mean Corpuscular Volume 82.3 fL (80.0-100.0); Nucleated Red Blood Cells % 0.0 %
[2025-07-18 06:57] LABS: Anion Gap 11 (5-15)
[2025-07-18 07:02] LABS: BUN/Creatinine Ratio 5.3 (10.0-20.0)
[2025-07-18 07:06] LABS: Blood Urea Nitrogen 39 mg/dL (9-23); Calcium 9.0 mg/dL (8.7-10.4); Carbon Dioxide 27 mmol/L (20-31); Chloride 100 mmol/L (98-107); Glucose 85 mg/dL (74-106); Potassium 4.9 mmol/L (3.5-5.1); Sodium 138 mmol/L (136-145)
--- NOTE | 2025-07-18 14:23 | DVHPN2 ---
Subjective The patient is seen and examined at bedside. Still complain of shortness for breath. Reviewed: Care Plan, H&P, Labs, Medications, Previous Orders, Radiology Changes from previous H/P or p: No Changes Objective Vitals Vital Signs Date Time Temp Pulse Resp B/P (MAP) Pulse Ox O2 Delivery O2 Flow Rate FiO2 07/18/25 13:21 78 18 200/80 07/18/25 08:39 98.5 91 98.5 07/18/25 07:53 Nasal Cannula* 3 32 Intake/Output Intake and Output 07/18/25 07:00 Intake Total 3078 ml Output Total 755 ml Balance 2323 ml Intake Oral 3078 ml Output Urine Total 755 ml # Bowel Movements 1 General Appearance: Alert, Oriented X3, Cooperative, No acute distress HEENT: Atraumatic, PERRLA, EOMI, Mucous membr. moist/pink Neck: Supple Lungs: Other (Bilateral rhonchi) Cardiovascular: Regular rate, Normal S1, Normal S2 Abdomen: Normal bowel sounds, Soft, No tenderness Extremities: Other (Trace edema bilaterally in the lower extremities) Medications Current Medications Medications Dose Ordered Sig/Miguel Route Start Time Stop Time Status Last Admin Dose Admin Aspirin 162 mg DAILY PO 07/15/25 10:00 07/18/25 08:51 162 MG Albuterol 2.5 mg Q6HPRN PRN NEB 07/14/25 19:30 07/14/25 20:06 2.5 MG Atorvastatin Calcium 40 mg HS PO 07/14/25 22:00 07/17/25 21:07 40 MG Clonidine HCl 0.2 mg TID PO 07/14/25 22:00 07/18/25 13:19 0.2 MG Hydralazine HCl 100 mg DAILY PO 07/15/25 10:00 07/18/25 08:49 100 MG Tamsulosin HCl 0.4 mg QPM PO 07/15/25 18:00 07/17/25 18:04 0.4 MG Ondansetron HCl 4 mg Q4HP PRN IV 07/14/25 19:30 07/17/25 23:06 4 MG Acetaminophen 650 mg Q6HP PRN PO 07/14/25 19:30 Nitroglycerin 0.4 mg Q5MINP PRN SL 07/14/25 19:30 Morphine Sulfate 2 mg Q30M PRN IV 07/14/25 19:30 Morphine Sulfate 4 mg Q4HPRN PRN IV 07/14/25 20:15 07/18/25 13:21 4 MG Nifedipine 60 mg DAILY PO 07/15/25 10:00 UNV Epoetin Willard-epbx 10,000 unit TUTHSA@2100 SC 07/15/25 21:00 07/17/25 21:08 10,000 UNIT Mupirocin 1 applic BID EACHNOSTRI 07/15/25 22:00 07/20/25 21:59 07/18/25 10:00 1 APPLIC Sevelamer HCl 1,600 mg TIDWM PO 07/15/25 18:15 07/18/25 11:58 1,600 MG Nifedipine 90 mg DAILY PO 07/18/25 10:00 07/18/25 08:50 90 MG Laboratory Results Laboratory Tests 07/18/25 04:50 Chemistry Test 07/18/25 04:50 Calcium Level 9.0 mg/dL (8.7-10.4) Microbiology Microbiology Date/Time Source Procedure Growth Status 07/15/25 00:30 Nose MRSA Screen - Final Methicillin Resistant S.aureus Complete Labs and/or images reviewed: Labs reviewed by me Assessment/Plan Assessment/Plan Acute pulmonary edema due to fluid overload End-stage renal disease on hemodialysis Noncompliance with dialysis Hypertension CAD CVA COPD Diastolic heart failure, acute on chronic, preserved ejection fraction Chronic anemia of chronic kidney disease Hyperkalemia Plan Continuing current management. Hemodialysis per schedule Hyperkalemia regimen was given Oxygen as needed to keep saturation oxygen above 92% Med neb q.6 hours as needed for shortness for breath Discharge planning. This medical document was created using an electronic medical record system with M[employer] direct computerized dictation system. Although this document has been carefully reviewed, there may still be some phonetic and typographical errors. These areas are purely typographical due to imperfections of the software programs, and do not reflect any compromise in the patient's medical care. Plan discussed with: Patient My Orders Orders - ZAHRA MARADIAGA MD Procedure Category Date Status Time Nifedipine Er PHA 07/18/25 In Process (Procardia Xl 10:00 Date of Service: Jul 18, 2025 Billing Provider: ZAHRA MARADIAGA MD Common Visit Codes: [id number] INP/OBS CARE(HIGH) ZAHRA AMRADIAGA MD Jul 18, 2025 14:23
--- NOTE | 2025-07-18 15:28 | DVHPN2 ---
Progress Note Date Seen: Jul 18, 2025 Medical Necessity Reason Pt with a Central, PICC or Fol: No Subjective Patient reports: No new complaints Objective vital signs Vital Sign Date Time Temp Pulse Resp B/P (MAP) Pulse Ox O2 Delivery O2 Flow Rate FiO2 07/18/25 15:16 98.7 78 20 181/109 (133) 90 98.7 07/18/25 07:53 Nasal Cannula* 3 32 Total Intake and Output 07/17/25 07/17/25 07/18/25 15:00 23:00 07:00 Intake Total 900 ml 1378 ml 800 ml Output Total 375 ml 380 ml Balance 900 ml 1003 ml 420 ml medications Current Medications Medications Dose Ordered Sig/Miguel Route Start Time Stop Time Status Last Admin Dose Admin Aspirin 162 mg DAILY PO 07/15/25 10:00 07/18/25 08:51 162 MG Albuterol 2.5 mg Q6HPRN PRN NEB 07/14/25 19:30 07/14/25 20:06 2.5 MG Atorvastatin Calcium 40 mg HS PO 07/14/25 22:00 07/17/25 21:07 40 MG Clonidine HCl 0.2 mg TID PO 07/14/25 22:00 07/18/25 13:19 0.2 MG Hydralazine HCl 100 mg DAILY PO 07/15/25 10:00 07/18/25 08:49 100 MG Tamsulosin HCl 0.4 mg QPM PO 07/15/25 18:00 07/17/25 18:04 0.4 MG Ondansetron HCl 4 mg Q4HP PRN IV 07/14/25 19:30 07/17/25 23:06 4 MG Acetaminophen 650 mg Q6HP PRN PO 07/14/25 19:30 Nitroglycerin 0.4 mg Q5MINP PRN SL 07/14/25 19:30 Morphine Sulfate 2 mg Q30M PRN IV 07/14/25 19:30 Morphine Sulfate 4 mg Q4HPRN PRN IV 07/14/25 20:15 07/18/25 13:21 4 MG Nifedipine 60 mg DAILY PO 07/15/25 10:00 UNV Epoetin Willard-epbx 10,000 unit TUTHSA@2100 SC 07/15/25 21:00 07/17/25 21:08 10,000 UNIT Mupirocin 1 applic BID EACHNOSTRI 07/15/25 22:00 07/20/25 21:59 07/18/25 10:00 1 APPLIC Sevelamer HCl 1,600 mg TIDWM PO 07/15/25 18:15 07/18/25 11:58 1,600 MG Nifedipine 90 mg DAILY PO 07/18/25 10:00 07/18/25 08:50 90 MG Examination Gen: NAD, appears stated age Lungs: CTA, bilateral air entry Heart: RRR, normal S1 and S2 Ext: No edema Neuro: Alert and oriented x 4 laboratory and microbiology Laboratory Tests 07/18/25 04:50 Test 07/18/25 04:50 Range/Units Serum Glucose 85 74-106 mg/dL Microbiology Date/Time Source Procedure Growth Status 07/15/25 00:30 Nose MRSA Screen - Final Methicillin Resistant S.aureus Complete Labs and/or images reviewed: Labs reviewed by me Problem List/Assessment/Plan Problem List/Assessment/Plan IMP 1. ESRD on hemodialysis 2. Hyperkalemia-resolved 3.Hyperphosphatemia 4. Acute chest pain rule out ACS 5. Acute on chronic diastolic heart failure 6. Anemia of chronic disease Plan: - HD 07/19 - BMP in am - Continue phos binders - Strict I&Os - Blood pressure control - Will continue to follow Plan discussed with: Patient, Other (Dr. Farley) Dietary Evaluation Review Comments: 1) Continue renal cardiac diet 2) Encourage optimal PO intake 3) Follow-up with cardiology, pulmonology, and nephrology 4) Continue to monitor I&O, labs, and skin integrity Expected Outcomes/Goals: 1) appetite and labs to improve 2) f/u in 3-5 days MARISEL STRONG Jul 18, 2025 15:28
[2025-07-19] VITALS (9 sets, daily range): BP systolic 140–172; BP diastolic 57–76; PULSE 70–78; RESP 18–19; TEMP 98.2–98.9; O2SAT 91–96
[2025-07-19 05:35] LABS: Hemoglobin 9.3 g/dL (13.5-17.5); Nucleated Red Blood Cells % 0.0 %
[2025-07-19 05:37] LABS: Hematocrit 27.8 % (41.0-53.0); Mean Corpuscular Hemoglobin 27.1 pg (28.0-32.0); Mean Corpuscular Volume 81.3 fL (80.0-100.0)
[2025-07-19 05:44] LABS: Chloride 101 mmol/L (98-107); Potassium 4.8 mmol/L (3.5-5.1); Sodium 138 mmol/L (136-145)
[2025-07-19 05:45] LABS: Anion Gap 11 (5-15); Calcium 9.0 mg/dL (8.7-10.4); Carbon Dioxide 26 mmol/L (20-31)
[2025-07-19 05:50] LABS: BUN/Creatinine Ratio 6.4 (10.0-20.0); Glucose 82 mg/dL (74-106)
[2025-07-19 05:54] LABS: Blood Urea Nitrogen 48 mg/dL (9-23)
--- NOTE | 2025-07-19 10:21 | DVHDS2 ---
Discharge Summary Date of Admission Jul 14, 2025 at 19:25 Date of Discharge: Jul 19, 2025 Labs/Diagnostic Data: Laboratory Results Test 07/19/25 05:03 07/16/25 04:40 07/15/25 10:30 07/15/25 04:37 White Blood Count 8.7 10^3/uL (4.4-10.8) Red Blood Count 3.42 10^6/uL (4.5-5.90) Hemoglobin 9.3 g/dL (13.5-17.5) Hematocrit 27.8 % (41.0-53.0) Mean Corpuscular Volume 81.3 fL (80.0-100.0) Mean Corpuscular Hemoglobin 27.1 pg (28.0-32.0) Mean Corpuscular Hemoglobin Concent 33.4 g/dL (32.0-36.0) Red Cell Distribution Width 16.8 % (11.8-14.3) Platelet Count 271 10^3/uL (140-450) Mean Platelet Volume 8.5 fL (6.9-10.8) Neutrophils (%) (Auto) 85.5 % (37.0-80.0) Lymphocytes (%) (Auto) 8.1 % (10.0-50.0) Monocytes (%) (Auto) 3.3 % (0.0-12.0) Eosinophils (%) (Auto) 2.7 % (0.0-7.0) Basophils (%) (Auto) 0.4 % (0.0-2.0) Neutrophils # (Auto) 7.4 10 ^3/uL (1.6-8.6) Lymphocytes # (Auto) 0.7 10 ^3/uL (0.4-5.4) Monocytes # (Auto) 0.3 10 ^3/uL (0-1.3) Eosinophils # (Auto) 0.2 10 ^3/uL (0-0.8) Basophils # (Auto) 0 10 ^3/uL (0-0.2) Nucleated Red Blood Cells 0.0 % Sodium Level 138 mmol/L (136-145) Potassium Level 4.8 mmol/L (3.5-5.1) Chloride Level 101 mmol/L (98-107) Carbon Dioxide Level 26 mmol/L (20-31) Anion Gap 11 (5-15) Blood Urea Nitrogen 48 mg/dL (9-23) Creatinine 7.48 mg/dL (0.700-1.30) Glomerular Filtration Rate Calc 7 mL/min (>90) BUN/Creatinine Ratio 6.4 (10.0-20.0) Serum Glucose 82 mg/dL (74-106) Calcium Level 9.0 mg/dL (8.7-10.4) Magnesium Level 1.9 mg/dL (1.6-2.6) POC Glucose 105 mg/dl (70-106) Phosphorus Level 8.7 mg/dL (2.4-5.1) Iron Level 82 ug/dL (65-175) Total Iron Binding Capacity 223 ug/dL (250-425) Percent Iron Saturation 36.8 % (20-55) Ferritin 214.8 ng/mL (22-322) Hepatitis A IgM Antibody Negative Hepatitis B Surface Antigen Negative (Negative) Hepatitis B Core IgM Antibody Negative (Negative) Hepatitis C Antibody Positive (Negative) Test 07/14/25 17:16 07/14/25 13:47 Troponin I High Sensitivity 168 ng/L (</=54) Total Bilirubin < 0.2 mg/dL (0.2-1.0) Aspartate Amino Transferase (AST) 18 U/L (13-40) Alanine Aminotransferase (ALT) 14 U/L (7-40) Alkaline Phosphatase 76 U/L (46-116) B-Type Natriuretic Peptide 4992.20 pg/mL (0-100) Total Protein 6.1 g/dL (5.7-8.2) Albumin 3.5 g/dL (3.2-4.8) Other Laboratory Tests 07/19/25 05:03 Brief Hx & Hospital Course: Final diagnoses: Acute pulmonary edema due to fluid overload End-stage renal disease on hemodialysis Noncompliance with dialysis Hypertension CAD CVA COPD Diastolic heart failure, acute on chronic, preserved ejection fraction Chronic anemia of chronic kidney disease Hyperkalemia He had missed 2 HD sessions so he was admitted for fluid overload Dialysis improved his SOB He is doing well now DC home on the same home meds Condition at Discharge: Stable Final Diagnosis/Problems List Acute pulmonary edema due to fluid overload End-stage renal disease on hemodialysis Noncompliance with dialysis Hypertension CAD CVA COPD Diastolic heart failure, acute on chronic, preserved ejection fraction Chronic anemia of chronic kidney disease Hyperkalemia Discharge Disposition: Home SNF Discharge Will this Physician continue t: No Discharge Instruct/Medications Diet: Consistent carbohydrate, Cardiac 2g Na,low cholest, Renal Activity: No Restrictions, As Tolerated Follow Up/Referral: Dialysis as scheduled Medications: Same home meds Scheduled Atorvastatin Calcium (Atorvastatin Calcium), 40 MG PO DAILY Furosemide (Furosemide), 1 TAB PO DAILY, (Reported) Hydralazine Hcl (Hydralazine Hcl), 1 TAB PO Q8HR, (Reported) Nifedipine (Nifedipine Er), 1 TAB PO DAILY, (Reported) Sertraline Hcl (Sertraline Hcl), 1 TAB PO QAM, (Reported) Sevelamer Carbonate (Renvela), 2 TAB PO TIDWM, (Reported) Tamsulosin Hcl (Tamsulosin Hcl), 1 CAP PO DAILY, (Reported) Scheduled PRN Alprazolam (Alprazolam), 1 TAB PO DAILYPRN PRN for ANXIETY, (Reported) Clonidine Hydrochloride (Clonidine Hydrochloride), 1 TAB PO Q8HR PRN for BP GREATER THAN 180, (Reported) Discontinued Medications Nifedipine (Nifedipine Er), 1 TAB PO DAILY, (Reported) Discontinued Reason: Prescription changed Sertraline HCl (Sertraline HCl), 50 MG PO DAILY, (Reported) Discontinued Reason: Prescription changed Discharge Statement: "Patient was advised to return to the ER or call 911 if any headaches, dizziness, shortness of breath, chest pain, abdominal pain, bleeding, fevers, or worsening of medical condition. Patient was counseled about treatment plan, medications, possible side effects, patientverbalized understanding. All questions were answered to the best of my ability. This discharge took greater then 30 minutes in planning, reviewing documentation, counseling the patient, and discussing with other team members." ASSESSMENT ASSESSMENT Assessment Acute pulmonary edema due to fluid overload End-stage renal disease on hemodialysis Noncompliance with dialysis Hypertension CAD CVA COPD Diastolic heart failure, acute on chronic, preserved ejection fraction Chronic anemia of chronic kidney disease Hyperkalemia Date of Service: Jul 19, 2025 Billing Provider: KILO MAHER MD Common Visit Codes: NOT BILLABLE KILO MAHER MD Jul 19, 2025 10:21
[2025-07-19] MEDS: SODIUM CHL 0.9% 1000 ML BAG XX ONE ×2 (11:33→11:34)
[2025-07-19] MEDS: hydrALAZINE HCL 20 MG/ML VL IV ONE (16:12)
--- NOTE | 2025-07-19 17:22 | DVHPN2 ---
Progress Note Date Seen: Jul 19, 2025 Resident Creating Document: GEORGI CRUM RESIDENT Medical Necessity Reason Pt with a Central, PICC or Fol: No Subjective Review of Systems Patient was seen and examined on the bedside. He is alert, oriented x3. Underwent hemodialysis today and 2.5 L removed. Objective vital signs Vital Sign Date Time Temp Pulse Resp B/P (MAP) Pulse Ox O2 Delivery O2 Flow Rate FiO2 07/19/25 17:00 98.3 72 18 160/72 (101) 94 98.3 07/19/25 08:00 Nasal Cannula* 3 32 Total Intake and Output 07/18/25 07/18/25 07/19/25 15:00 23:00 07:00 Intake Total 360 ml 320 ml Output Total 400 ml 300 ml Balance -40 ml 20 ml medications Current Medications Medications Dose Ordered Sig/Miguel Route Start Time Stop Time Status Last Admin Dose Admin Aspirin 162 mg DAILY PO 07/15/25 10:00 07/19/25 09:41 162 MG Albuterol 2.5 mg Q6HPRN PRN NEB 07/14/25 19:30 07/14/25 20:06 2.5 MG Atorvastatin Calcium 40 mg HS PO 07/14/25 22:00 07/18/25 21:19 40 MG Clonidine HCl 0.2 mg TID PO 07/14/25 22:00 07/19/25 05:29 0.2 MG Hydralazine HCl 100 mg DAILY PO 07/15/25 10:00 07/18/25 08:49 100 MG Tamsulosin HCl 0.4 mg QPM PO 07/15/25 18:00 07/18/25 18:04 0.4 MG Ondansetron HCl 4 mg Q4HP PRN IV 07/14/25 19:30 07/19/25 08:31 4 MG Acetaminophen 650 mg Q6HP PRN PO 07/14/25 19:30 Nitroglycerin 0.4 mg Q5MINP PRN SL 07/14/25 19:30 Morphine Sulfate 2 mg Q30M PRN IV 07/14/25 19:30 Morphine Sulfate 4 mg Q4HPRN PRN IV 07/14/25 20:15 07/19/25 14:35 4 MG Nifedipine 60 mg DAILY PO 07/15/25 10:00 UNV Epoetin Willard-epbx 10,[address] [facility]@2100 [place] 07/15/25 21:00 07/17/25 21:08 10,000 UNIT Mupirocin 1 applic BID EACHNOSTRI 07/15/25 22:00 07/20/25 21:59 07/18/25 10:00 1 APPLIC Sevelamer HCl 1,600 mg TIDWM PO 07/15/25 18:15 07/19/25 12:35 1,600 MG Nifedipine 90 mg DAILY PO 07/18/25 10:00 07/18/25 08:50 90 MG Examination Physical examination: General Appearance: Alert, Oriented X3, Cooperative, No acute distress HEENT: Atraumatic, PERRLA, EOMI, Mucous membrane moist/pink Respiratory: Clear to auscultation, Normal air movement Cardiovascular: Regular rate, Normal S1, Normal S2, No murmurs, no chest wall tenderness Abdominal: Normal bowel sounds, Soft, No tenderness, No hepatospenomegaly, No masses Extremities: Av fistula in left upper arm, No clubbing, No cyanosis, No edema, Normal pulses, No tenderness/swelling Skin: No rashes, No breakdown, No significant lesion Neuro: Normal gait, Normal speech, Strength at 5/5 X4 ext, Normal tone, Sensation intact, Cranial nerves 3-12 NL, Reflexes 2+ Psych/Mental Status: Mental status NL, Mood NL laboratory and microbiology Laboratory Tests 07/19/25 05:03 Test 07/19/25 05:03 Range/Units Serum Glucose 82 74-106 mg/dL Microbiology Date/Time Source Procedure Growth Status 07/15/25 00:30 Nose MRSA Screen - Final Methicillin Resistant S.aureus Complete Labs and/or images reviewed: Labs reviewed by me, Image(s) reviewed by me Problem List/Assessment/Plan Problem List/Assessment/Plan Assessment and plan: # ESRD on hemodialysis # Hyperkalemia # Hyperphosphatemia # Acute chest pain rule out ACS # Possible NSTEMI type 2 due to above # Acute on chronic diastolic heart failure # Anemia of chronic disease Plan: - Underwent hemodialysis today and 2.5L ultrafiltration removed - Sevelamer 1600 mg PO TID - Continue antihypertensives for optimize control of blood pressure - Other management as per primary - Avoid nephrotoxic medication - Plan discussed with Dr. Velazquez Addendum Patient seen and examined, plan discussed with resident. Agree with above, we will follow closely Plan discussed with: Patient, Other (RN) Dietary Evaluation Review Comments: 1) Continue renal cardiac diet 2) Encourage optimal PO intake 3) Follow-up with cardiology, pulmonology, and nephrology 4) Continue to monitor I&O, labs, and skin integrity Expected Outcomes/Goals: 1) appetite and labs to improve 2) f/u in 3-5 days GEORGI CRUM Jul 19, 2025 17:21 RIVER VELAZQUEZ MD Jul 19, 2025 21:34
[2025-07-20] VITALS (14 sets, daily range): BP systolic 138–236; BP diastolic 60–134; PULSE 67–79; RESP 17–20; TEMP 97.7–99; O2SAT 92–98
[2025-07-20] MEDS: hydrALAZINE HCL 20 MG/ML VL IV ONE (04:59)
[2025-07-20] MEDS: HYDROcodone-ACET 5/325MG TAB PO ONE (05:21)
[2025-07-20 05:31] LABS: Hematocrit 28.9 % (41.0-53.0); Hemoglobin 9.5 g/dL (13.5-17.5); Mean Corpuscular Hemoglobin 27.0 pg (28.0-32.0); Mean Corpuscular Volume 81.9 fL (80.0-100.0); Nucleated Red Blood Cells % 0.0 %
[2025-07-20 05:39] LABS: Chloride 100 mmol/L (98-107); Potassium 4.8 mmol/L (3.5-5.1); Sodium 139 mmol/L (136-145)
[2025-07-20 05:40] LABS: Anion Gap 11 (5-15); Calcium 9.0 mg/dL (8.7-10.4); Carbon Dioxide 28 mmol/L (20-31)
[2025-07-20 05:45] LABS: BUN/Creatinine Ratio 5.4 (10.0-20.0); Glucose 94 mg/dL (74-106)
[2025-07-20 05:59] LABS: Blood Urea Nitrogen 34 mg/dL (9-23)
--- NOTE | 2025-07-20 13:20 | DVHPN2 ---
Subjective BP is still high c/o nausea and vomiting Reviewed: Care Plan, H&P, Labs, Medications, Previous Orders, Radiology Changes from previous H/P or p: Changes Objective Vitals Vital Signs Date Time Temp Pulse Resp B/P (MAP) Pulse Ox O2 Delivery O2 Flow Rate FiO2 07/20/25 12:45 71 18 165/72 07/20/25 09:00 98.4 94 98.4 07/20/25 08:47 Nasal Cannula 3.0 07/20/25 08:00 32 Intake/Output Intake and Output 07/20/25 07:00 Intake Total 1750 ml Output Total 650 ml Balance 1100 ml Intake Oral 1750 ml Output Urine Total 650 ml General Appearance: Alert, Oriented X3, Cooperative, No acute distress HEENT: Atraumatic, PERRLA, EOMI, Mucous membr. moist/pink Neck: Supple Lungs: Other (Bilateral rhonchi) Cardiovascular: Regular rate, Normal S1, Normal S2 Abdomen: Normal bowel sounds, Soft, No tenderness Extremities: Other (Trace edema bilaterally in the lower extremities) Medications Current Medications Medications Dose Ordered Sig/Miguel Route Start Time Stop Time Status Last Admin Dose Admin Aspirin 162 mg DAILY PO 07/15/25 10:00 07/20/25 08:29 162 MG Albuterol 2.5 mg Q6HPRN PRN NEB 07/14/25 19:30 07/14/25 20:06 2.5 MG Atorvastatin Calcium 40 mg HS PO 07/14/25 22:00 07/19/25 21:43 40 MG Clonidine HCl 0.2 mg TID PO 07/14/25 22:00 07/20/25 12:44 0.2 MG Hydralazine HCl 100 mg DAILY PO 07/15/25 10:00 07/20/25 07:40 100 MG Tamsulosin HCl 0.4 mg QPM PO 07/15/25 18:00 07/19/25 18:00 0.4 MG Ondansetron HCl 4 mg Q4HP PRN IV 07/14/25 19:30 07/20/25 12:49 4 MG Acetaminophen 650 mg Q6HP PRN PO 07/14/25 19:30 Nitroglycerin 0.4 mg Q5MINP PRN SL 07/14/25 19:30 Morphine Sulfate 2 mg Q30M PRN IV 07/14/25 19:30 Morphine Sulfate 4 mg Q4HPRN PRN IV 07/14/25 20:15 07/20/25 12:45 4 MG Nifedipine 60 mg DAILY PO 07/15/25 10:00 UNV Epoetin Willard-epbx 10,000 unit [facility]@2100 [place] 07/15/25 21:00 07/17/25 21:08 10,000 UNIT Mupirocin 1 applic BID EACHNOSTRI 07/15/25 22:00 07/20/25 21:59 07/19/25 21:47 1 APPLIC Sevelamer HCl 1,600 mg TIDWM PO 07/15/25 18:15 07/20/25 12:44 1,600 MG Nifedipine 90 mg DAILY PO 07/18/25 10:00 07/20/25 07:40 90 MG Acetaminophen/ Hydrocodone Bitart 1 tab Q6HPRN PRN PO 07/20/25 11:00 Laboratory Results Laboratory Tests 07/20/25 04:58 Chemistry Test 07/20/25 04:58 Calcium Level 9.0 mg/dL (8.7-10.4) Magnesium Level 2.1 mg/dL (1.6-2.6) Microbiology Microbiology Date/Time Source Procedure Growth Status 07/15/25 00:30 Nose MRSA Screen - Final Methicillin Resistant S.aureus Complete Assessment/Plan Assessment/Plan Acute pulmonary edema due to fluid overload End-stage renal disease on hemodialysis Noncompliance with dialysis Hypertension CAD CVA COPD Diastolic heart failure, acute on chronic, preserved ejection fraction Chronic anemia of chronic kidney disease Hyperkalemia Plan Hemodialysis today Hyperkalemia regimen was given Oxygen as needed Med neb treatments as needed Monitor closely 07/20/2025: Uncontrolled hypertension End-stage renal disease Nausea and vomiting Change hydralazine to 100 mg t.i.d. Continue nifedipine ER 90 mg daily Continue clonidine Dialysis for tomorrow Hold discharge Plan discussed with: Patient My Orders Orders - KILO MAHER MD Procedure Category Date Status Time Hydrocodone-Acet PHA 07/20/25 In Process 5/325mg Tab ([place] 11:00 Electrocardigram EKG 07/20/25 Logged 10:50 Electrocardigram EKG 07/20/25 Logged 11:50 Date of Service: Jul 20, 2025 Billing Provider: KILO MAHER MD Common Visit Codes: NOT BILLABLE KILO MAHER MD Jul 20, 2025 13:20
[2025-07-20] MEDS: LOSARTAN POTASSIUM 25 MG TAB PO SCH (14:10)
--- NOTE | 2025-07-20 17:46 | DVHPN2 ---
Progress Note Date Seen: Jul 20, 2025 Resident Creating Document: GEORGI CRUM RESIDENT Medical Necessity Reason Pt with a Central, PICC or Fol: No Subjective Review of Systems Patient was seen and examined on the bedside. He is alert, oriented x3. The patient was discharged yesterday but because of hypertensive emergency patient was staying in the hospital. Objective vital signs Vital Sign Date Time Temp Pulse Resp B/P (MAP) Pulse Ox O2 Delivery O2 Flow Rate FiO2 07/20/25 17:29 69 20 140/66 07/20/25 17:00 98.1 97 98.1 07/20/25 08:47 Nasal Cannula 3.0 07/20/25 08:00 32 Total Intake and Output 07/19/25 07/19/25 07/20/25 15:00 23:00 07:00 Intake Total 1300 ml 450 ml Output Total 650 ml Balance 650 ml 450 ml medications Current Medications Medications Dose Ordered Sig/Miguel Route Start Time Stop Time Status Last Admin Dose Admin Aspirin 162 mg DAILY PO 07/15/25 10:00 07/20/25 08:29 162 MG Albuterol 2.5 mg Q6HPRN PRN NEB 07/14/25 19:30 07/14/25 20:06 2.5 MG Atorvastatin Calcium 40 mg HS PO 07/14/25 22:00 07/19/25 21:43 40 MG Tamsulosin HCl 0.4 mg QPM PO 07/15/25 18:00 07/20/25 17:27 0.4 MG Ondansetron HCl 4 mg Q4HP PRN IV 07/14/25 19:30 07/20/25 12:49 4 MG Acetaminophen 650 mg Q6HP PRN PO 07/14/25 19:30 Nitroglycerin 0.4 mg Q5MINP PRN SL 07/14/25 19:30 Morphine Sulfate 2 mg Q30M PRN IV 07/14/25 19:30 Morphine Sulfate 4 mg Q4HPRN PRN IV 07/14/25 20:15 07/20/25 17:29 4 MG Nifedipine 60 mg DAILY PO 07/15/25 10:00 UNV Epoetin Willard-epbx 10,000 unit [facility]@2100 [place] 07/15/25 21:00 07/17/25 21:08 10,000 UNIT Mupirocin 1 applic BID EACHNOSTRI 07/15/25 22:00 07/20/25 21:59 07/19/25 21:47 1 APPLIC Sevelamer HCl 1,600 mg TIDWM PO 07/15/25 18:15 07/20/25 17:27 1,600 MG Nifedipine 90 mg DAILY PO 07/18/25 10:00 07/20/25 07:40 90 MG Acetaminophen/ Hydrocodone Bitart 1 tab Q6HPRN PRN PO 07/20/25 11:00 Hydralazine HCl 100 mg TID PO 07/20/25 14:00 07/20/25 16:05 100 MG Clonidine HCl 0.3 mg TID PO 07/20/25 14:00 07/20/25 16:05 0.3 MG Losartan Potassium 75 mg DAILY PO 07/20/25 13:45 07/20/25 14:10 75 MG Examination Physical examination: General Appearance: Alert, Oriented X3, Cooperative, No acute distress HEENT: Atraumatic, PERRLA, EOMI, Mucous membrane moist/pink Respiratory: Clear to auscultation, Normal air movement Cardiovascular: Regular rate, Normal S1, Normal S2, No murmurs, no chest wall tenderness Abdominal: Normal bowel sounds, Soft, No tenderness, No hepatospenomegaly, No masses Extremities: Av fistula in left upper arm, No clubbing, No cyanosis, No edema, Normal pulses, No tenderness/swelling Skin: No rashes, No breakdown, No significant lesion Neuro: Normal gait, Normal speech, Strength at 5/5 X4 ext, Normal tone, Sensation intact, Cranial nerves 3-12 NL, Reflexes 2+ Psych/Mental Status: Mental status NL, Mood NL laboratory and microbiology Laboratory Tests 07/20/25 04:58 Test 07/20/25 04:58 Range/Units Serum Glucose 94 74-106 mg/dL Microbiology Date/Time Source Procedure Growth Status 07/15/25 00:30 Nose MRSA Screen - Final Methicillin Resistant S.aureus Complete Labs and/or images reviewed: Labs reviewed by me, Image(s) reviewed by me Problem List/Assessment/Plan Problem List/Assessment/Plan Assessment and plan: # ESRD on hemodialysis # Hypertensive emergency # Hyperkalemia # Hyperphosphatemia # Acute chest pain rule out ACS # Possible NSTEMI type 2 due to above # Acute on chronic diastolic heart failure # Anemia of chronic disease Plan: - Hemodialysis tomorrow - continue hydralazine 100 mg PO TID, nifedipine 90 mg p.o. daily, losartan potassium 75 mg daily, clonidine 0.3 mg t.i.d. for optimal control of blood pressure - Sevelamer 1600 mg PO TID - Continue antihypertensives for optimize control of blood pressure - Other management as per primary - Avoid nephrotoxic medication - strict I&O Plan discussed with Dr. Velazquez Addendum Patient seen and examined, plan discussed with resident. Agree with above, we will follow closely add losartan 75mg Plan discussed with: Patient, Other (RN) Dietary Evaluation Review Comments: 1) Continue renal cardiac diet 2) Encourage optimal PO intake 3) Follow-up with cardiology, pulmonology, and nephrology 4) Continue to monitor I&O, labs, and skin integrity Expected Outcomes/Goals: 1) appetite and labs to improve 2) f/u in 3-5 days GEORGI CRUM Jul 20, 2025 17:46 RIVER VELAZQUEZ MD Jul 20, 2025 21:30
[2025-07-21] VITALS (10 sets, daily range): BP systolic 148–172; BP diastolic 66–105; PULSE 66–79; RESP 16–20; TEMP 97.7–98.6; O2SAT 90–97
[2025-07-21 05:16] LABS: Hematocrit 30.0 % (41.0-53.0); Hemoglobin 10.0 g/dL (13.5-17.5); Mean Corpuscular Hemoglobin 27.0 pg (28.0-32.0); Mean Corpuscular Volume 81.2 fL (80.0-100.0); Nucleated Red Blood Cells % 0.0 %
[2025-07-21 05:28] LABS: Chloride 100 mmol/L (98-107); Potassium 5.0 mmol/L (3.5-5.1); Sodium 137 mmol/L (136-145)
[2025-07-21 05:29] LABS: Anion Gap 11 (5-15); Calcium 8.7 mg/dL (8.7-10.4); Carbon Dioxide 26 mmol/L (20-31)
[2025-07-21 05:34] LABS: BUN/Creatinine Ratio 5.7 (10.0-20.0); Blood Urea Nitrogen 39 mg/dL (9-23); Glucose 96 mg/dL (74-106)
[2025-07-21] MEDS: SODIUM CHL 0.9% 1000 ML BAG XX ONE (07:00)
[2025-07-21] MEDS: LOSARTAN POTASSIUM 25 MG TAB PO SCH (08:30)
[2025-07-21] MEDS: diphenhdrAMINE HCL 50 MG/1 ML VL IV PRN (10:43)
[2025-07-21] MEDS: methylPREDNISolone SOD SUCC 125 MG/2 ML VL IV ONE (10:43)
--- NOTE | 2025-07-21 10:57 | DVHPN2 ---
Progress Note Date Seen: Jul 21, 2025 Resident Creating Document: GEORGI CRUM RESIDENT Medical Necessity Reason Pt with a Central, PICC or Fol: No Subjective Review of Systems Patient was seen and examined on the bedside. He is alert, oriented x3. Patient had 1 episodes of allergic reaction yesterday probably due to statin and complaint of tongue and lip swelling with rashes in the scalp and bilateral upper extremities. Objective vital signs Vital Sign Date Time Temp Pulse Resp B/P (MAP) Pulse Ox O2 Delivery O2 Flow Rate FiO2 07/21/25 10:11 96 Nasal Cannula 3.0 07/21/25 10:11 32 07/21/25 08:43 70 18 159/66 07/21/25 08:37 98.1 98.1 Total Intake and Output 07/20/25 07/20/25 07/21/25 15:00 23:00 07:00 Intake Total 620 ml 700 ml Balance 620 ml 700 ml medications Current Medications Medications Dose Ordered Sig/Miguel Route Start Time Stop Time Status Last Admin Dose Admin Aspirin 162 mg DAILY PO 07/15/25 10:00 07/20/25 08:29 162 MG Tamsulosin HCl 0.4 mg QPM PO 07/15/25 18:00 07/20/25 17:27 0.4 MG Ondansetron HCl 4 mg Q4HP PRN IV 07/14/25 19:30 07/20/25 12:49 4 MG Acetaminophen 650 mg Q6HP PRN PO 07/14/25 19:30 Nitroglycerin 0.4 mg Q5MINP PRN SL 07/14/25 19:30 Morphine Sulfate 2 mg Q30M PRN IV 07/14/25 19:30 Morphine Sulfate 4 mg Q4HPRN PRN IV 07/14/25 20:15 07/21/25 08:43 4 MG Nifedipine 60 mg DAILY PO 07/15/25 10:00 UNV Epoetin Willard-epbx 10,000 unit [facility]@2100 [place] 07/15/25 21:00 07/20/25 22:17 10,000 UNIT Sevelamer HCl 1,600 mg TIDWM PO 07/15/25 18:15 07/20/25 17:27 1,600 MG Nifedipine 90 mg DAILY PO 07/18/25 10:00 07/20/25 07:40 90 MG Acetaminophen/ Hydrocodone Bitart 1 tab Q6HPRN PRN PO 07/20/25 11:00 Hydralazine HCl 100 mg TID PO 07/20/25 14:00 07/21/25 05:45 100 MG Clonidine HCl 0.3 mg TID PO 07/20/25 14:00 07/21/25 05:45 0.3 MG Losartan Potassium 100 mg DAILY PO 07/21/25 08:30 Diphenhydramine HCl 25 mg Q4HP PRN IV 07/21/25 09:45 07/21/25 10:43 25 MG Famotidine 10 mg HS PO 07/21/25 22:00 Methylprednisolone Sodium Succinate 60 mg BID IV 07/21/25 22:00 Examination Physical examination: General Appearance: Alert, Oriented X3, Cooperative, No acute distress HEENT: Atraumatic, PERRLA, EOMI, Mucous membrane moist/pink Respiratory: Clear to auscultation, Normal air movement Cardiovascular: Regular rate, Normal S1, Normal S2, No murmurs, no chest wall tenderness Abdominal: Normal bowel sounds, Soft, No tenderness, No hepatospenomegaly, No masses Extremities: Av fistula in left upper arm, No clubbing, No cyanosis, No edema, Normal pulses, No tenderness/swelling Skin: No rashes, No breakdown, No significant lesion Neuro: Normal gait, Normal speech, Strength at 5/5 X4 ext, Normal tone, Sensation intact, Cranial nerves 3-12 NL, Reflexes 2+ Psych/Mental Status: Mental status NL, Mood NL laboratory and microbiology Laboratory Tests 07/21/25 04:54 Test 07/21/25 04:54 Range/Units Serum Glucose 96 74-106 mg/dL Microbiology Date/Time Source Procedure Growth Status 07/15/25 00:30 Nose MRSA Screen - Final Methicillin Resistant S.aureus Complete Labs and/or images reviewed: Labs reviewed by me, Image(s) reviewed by me Problem List/Assessment/Plan Problem List/Assessment/Plan Assessment and plan: # ESRD on hemodialysis # Hypertensive emergency # Hyperkalemia # Hyperphosphatemia # Acute chest pain rule out ACS # Possible NSTEMI type 2 due to above # Acute on chronic diastolic heart failure # Anemia of chronic disease Plan: - Hemodialysis today and 3 L ultrafiltration removed - continue hydralazine 100 mg PO TID, nifedipine 90 mg p.o. daily, losartan potassium 100 mg daily, clonidine 0.3 mg t.i.d. for optimal control of blood pressure - Sevelamer 1600 mg PO TID - Continue antihypertensives for optimize control of blood pressure - Other management as per primary - Avoid nephrotoxic medication - strict I&O Plan discussed with Dr. Velazquez Addendum Patient seen and examined, plan discussed with resident. Agree with above, we will follow closely Plan discussed with: Patient, Other (RN) My Orders My Orders Orders - GEORGI CRUM Procedure Category Date Status Time Losartan Tablet PHA 07/21/25 In Process (Cozaar Tablet) 08:30 Dietary Evaluation Review Comments: 1) Continue renal cardiac diet 2) Encourage optimal PO intake 3) Follow-up with cardiology, pulmonology, and nephrology 4) Continue to monitor I&O, labs, and skin integrity Expected Outcomes/Goals: 1) appetite and labs to improve 2) f/u in 3-5 days GEORGI CRUM Jul 21, 2025 10:57 RIVER VELAZQUEZ MD Jul 22, 2025 11:05
--- NOTE | 2025-07-21 14:10 | DVHPN2 ---
Subjective He developed swelling in his tongue and lips earlier this morning He says it happened after he received his atorvastatin last night Reviewed: Care Plan, H&P, Labs, Medications, Previous Orders, Radiology Changes from previous H/P or p: Changes Objective Vitals Vital Signs Date Time Temp Pulse Resp B/P (MAP) Pulse Ox O2 Delivery O2 Flow Rate FiO2 07/21/25 13:00 97.7 77 16 151/76 (101) 95 97.7 07/21/25 10:11 Nasal Cannula 3.0 07/21/25 10:11 32 Intake/Output Intake and Output 07/21/25 07:00 Intake Total 1320 ml Balance 1320 ml Intake Oral 1320 ml # Voids 1 # Bowel Movements 1 General Appearance: Alert, Oriented X3, Cooperative, No acute distress HEENT: Atraumatic, PERRLA, EOMI, Mucous membr. moist/pink Neck: Supple Lungs: Other (Bilateral rhonchi) Cardiovascular: Regular rate, Normal S1, Normal S2 Abdomen: Normal bowel sounds, Soft, No tenderness Extremities: Other (Trace edema bilaterally in the lower extremities) Medications Current Medications Medications Dose Ordered Sig/Miguel Route Start Time Stop Time Status Last Admin Dose Admin Aspirin 162 mg DAILY PO 07/15/25 10:00 07/20/25 08:29 162 MG Tamsulosin HCl 0.4 mg QPM PO 07/15/25 18:00 07/20/25 17:27 0.4 MG Ondansetron HCl 4 mg Q4HP PRN IV 07/14/25 19:30 07/20/25 12:49 4 MG Acetaminophen 650 mg Q6HP PRN PO 07/14/25 19:30 Nitroglycerin 0.4 mg Q5MINP PRN SL 07/14/25 19:30 Morphine Sulfate 2 mg Q30M PRN IV 07/14/25 19:30 Morphine Sulfate 4 mg Q4HPRN PRN IV 07/14/25 20:15 07/21/25 08:43 4 MG Nifedipine 60 mg DAILY PO 07/15/25 10:00 UNV Epoetin Willard-epbx 10,000 unit TUTHSA@2100 SC 07/15/25 21:00 07/20/25 22:17 10,000 UNIT Sevelamer HCl 1,600 mg TIDWM PO 07/15/25 18:15 07/20/25 17:27 1,600 MG Nifedipine 90 mg DAILY PO 07/18/25 10:00 07/20/25 07:40 90 MG Acetaminophen/ Hydrocodone Bitart 1 tab Q6HPRN PRN PO 07/20/25 11:00 Hydralazine HCl 100 mg TID PO 07/20/25 14:00 07/21/25 05:45 100 MG Clonidine HCl 0.3 mg TID PO 07/20/25 14:00 07/21/25 05:45 0.3 MG Losartan Potassium 100 mg DAILY PO 07/21/25 08:30 Diphenhydramine HCl 25 mg Q4HP PRN IV 07/21/25 09:45 07/21/25 10:43 25 MG Famotidine 10 mg HS PO 07/21/25 22:00 Methylprednisolone Sodium Succinate 60 mg BID IV 07/21/25 22:00 Laboratory Results Laboratory Tests 07/21/25 04:54 Chemistry Test 07/21/25 04:54 Calcium Level 8.7 mg/dL (8.7-10.4) Microbiology Microbiology Date/Time Source Procedure Growth Status 07/15/25 00:30 Nose MRSA Screen - Final Methicillin Resistant S.aureus Complete Assessment/Plan Assessment/Plan Acute pulmonary edema due to fluid overload End-stage renal disease on hemodialysis Noncompliance with dialysis Hypertension CAD CVA COPD Diastolic heart failure, acute on chronic, preserved ejection fraction Chronic anemia of chronic kidney disease Hyperkalemia Plan Hemodialysis today Hyperkalemia regimen was given Oxygen as needed Med neb treatments as needed Monitor closely 07/20/2025: Uncontrolled hypertension End-stage renal disease Nausea and vomiting Change hydralazine to 100 mg t.i.d. Continue nifedipine ER 90 mg daily Continue clonidine Dialysis for tomorrow Hold discharge 07/21/2025: Hold the discharge due to angioedema Angioedema could be due to atorvastatin Give Solu-Medrol IV Give Pepcid Give Benadryl as needed Hold the discharge for now He was dialyzed this morning Observed overnight Hypertension is better controlled now Discharge planning for tomorrow Plan discussed with: Patient My Orders Orders - KILO MAHER MD Procedure Category Date Status Time Diphenhdramine PHA 07/21/25 In Process Injection (Benadryl 09:45 Famotidine Tablet PHA 07/21/25 In Process (Pepcid Tablet) 22:00 Methylprednisolone PHA 07/21/25 In Process Sod Succ (Solu Medrol 22:00 Date of Service: Jul 21, 2025 Billing Provider: KILO MAHER MD Common Visit Codes: NOT BILLABLE KILO MAHER MD Jul 21, 2025 14:10
[2025-07-21] MEDS: FAMOTIDINE 20 MG TAB PO SCH (21:08)
[2025-07-21] MEDS: methylPREDNISolone SOD SUCC 125 MG/2 ML VL IV SCH (21:08)
[2025-07-22] VITALS (9 sets, daily range): BP systolic 121–174; BP diastolic 67–84; PULSE 66–84; RESP 16–18; TEMP 97.3–98.5; O2SAT 93–97
[2025-07-22 05:56] LABS: Sodium 137 mmol/L (136-145)
[2025-07-22 05:57] LABS: Calcium 9.0 mg/dL (8.7-10.4)
[2025-07-22 06:02] LABS: Anion Gap 11 (5-15); Carbon Dioxide 31 mmol/L (20-31); Chloride 95 mmol/L (98-107); Glucose 131 mg/dL (74-106); Potassium 5.1 mmol/L (3.5-5.1)
[2025-07-22 06:04] LABS: BUN/Creatinine Ratio 6.1 (10.0-20.0)
[2025-07-22 06:05] LABS: Blood Urea Nitrogen 35 mg/dL (9-23)
--- NOTE | 2025-07-22 12:59 | DVHPN2 ---
Subjective c/o weakness Wants to go to SNF Reviewed: Care Plan, H&P, Labs, Medications, Previous Orders, Radiology Changes from previous H/P or p: Changes Objective Vitals Vital Signs Date Time Temp Pulse Resp B/P (MAP) Pulse Ox O2 Delivery O2 Flow Rate FiO2 07/22/25 10:11 155/81 07/22/25 09:09 81 16 07/22/25 08:05 93 Nasal Cannula* 3 32 07/22/25 07:54 98.5 98.5 Intake/Output Intake and Output 07/22/25 07:00 Intake Total 745 ml Output Total 425 ml Balance 320 ml Intake Oral 745 ml Output Urine Total 425 ml General Appearance: Alert, Oriented X3, Cooperative, No acute distress HEENT: Atraumatic, PERRLA, EOMI, Mucous membr. moist/pink Neck: Supple Lungs: Other (Bilateral rhonchi) Cardiovascular: Regular rate, Normal S1, Normal S2 Abdomen: Normal bowel sounds, Soft, No tenderness Extremities: Other (Trace edema bilaterally in the lower extremities) Medications Current Medications Medications Dose Ordered Sig/Miguel Route Start Time Stop Time Status Last Admin Dose Admin Aspirin 162 mg DAILY PO 07/15/25 10:00 07/22/25 10:04 162 MG Tamsulosin HCl 0.4 mg QPM PO 07/15/25 18:00 07/21/25 19:50 0.4 MG Ondansetron HCl 4 mg Q4HP PRN IV 07/14/25 19:30 07/22/25 09:08 4 MG Acetaminophen 650 mg Q6HP PRN PO 07/14/25 19:30 Nitroglycerin 0.4 mg Q5MINP PRN SL 07/14/25 19:30 Morphine Sulfate 2 mg Q30M PRN IV 07/14/25 19:30 Morphine Sulfate 4 mg Q4HPRN PRN IV 07/14/25 20:15 07/22/25 09:09 4 MG Nifedipine 60 mg DAILY PO 07/15/25 10:00 UNV Epoetin Willard-epbx 10,000 unit TUTHSA@2100 SC 07/15/25 21:00 07/20/25 22:17 10,000 UNIT Sevelamer HCl 1,600 mg TIDWM PO 07/15/25 18:15 07/21/25 19:51 1,600 MG Nifedipine 90 mg DAILY PO 07/18/25 10:00 07/22/25 10:11 90 MG Acetaminophen/ Hydrocodone Bitart 1 tab Q6HPRN PRN PO 07/20/25 11:00 Hydralazine HCl 100 mg TID PO 07/20/25 14:00 07/22/25 05:57 100 MG Clonidine HCl 0.3 mg TID PO 07/20/25 14:00 07/22/25 05:56 0.3 MG Losartan Potassium 100 mg DAILY PO 07/21/25 08:30 07/22/25 10:05 100 MG Diphenhydramine HCl 25 mg Q4HP PRN IV 07/21/25 09:45 07/21/25 10:43 25 MG Famotidine 10 mg HS PO 07/21/25 22:00 07/21/25 21:08 10 MG Methylprednisolone Sodium Succinate 60 mg BID IV 07/21/25 22:00 07/22/25 10:03 60 MG Laboratory Results Laboratory Tests 07/21/25 04:54 07/22/25 05:09 Chemistry Test 07/22/25 05:09 Calcium Level 9.0 mg/dL (8.7-10.4) Microbiology Microbiology Date/Time Source Procedure Growth Status 07/15/25 00:30 Nose MRSA Screen - Final Methicillin Resistant S.aureus Complete Assessment/Plan Assessment/Plan Acute pulmonary edema due to fluid overload End-stage renal disease on hemodialysis Noncompliance with dialysis Hypertension CAD CVA COPD Diastolic heart failure, acute on chronic, preserved ejection fraction Chronic anemia of chronic kidney disease Hyperkalemia Plan Hemodialysis today Hyperkalemia regimen was given Oxygen as needed Med neb treatments as needed Monitor closely 07/20/2025: Uncontrolled hypertension End-stage renal disease Nausea and vomiting Change hydralazine to 100 mg t.i.d. Continue nifedipine ER 90 mg daily Continue clonidine Dialysis for tomorrow Hold discharge 07/21/2025: Hold the discharge due to angioedema Angioedema could be due to atorvastatin Give Solu-Medrol IV Give Pepcid Give Benadryl as needed Hold the discharge for now He was dialyzed this morning Observed overnight Hypertension is better controlled now Discharge planning for tomorrow 07/22/25: PT eval Discharge planning Plan discussed with: Patient Date of Service: Jul 22, 2025 Billing Provider: KILO MAHER MD Common Visit Codes: NOT BILLABLE KILO MAHER MD Jul 22, 2025 12:59
--- NOTE | 2025-07-22 18:15 | DVHPN2 ---
Progress Note Date Seen: Jul 22, 2025 Resident Creating Document: GEORGI CRUM RESIDENT Medical Necessity Reason Pt with a Central, PICC or Fol: No Subjective Review of Systems Patient was seen and examined on the bedside. He is alert, oriented x3. Complain of Nausea and mentioned 2 episodes of vomiting since morning. Objective vital signs Vital Sign Date Time Temp Pulse Resp B/P (MAP) Pulse Ox O2 Delivery O2 Flow Rate FiO2 07/22/25 17:00 97.8 68 16 121/69 (86) 96 97.8 07/22/25 08:05 Nasal Cannula* 3 32 Total Intake and Output 07/21/25 07/21/25 07/22/25 15:00 23:00 07:00 Intake Total 625 ml 120 ml Output Total 125 ml 300 ml Balance 500 ml -180 ml medications Current Medications Medications Dose Ordered Sig/Miguel Route Start Time Stop Time Status Last Admin Dose Admin Aspirin 162 mg DAILY PO 07/15/25 10:00 07/22/25 10:04 162 MG Tamsulosin HCl 0.4 mg QPM PO 07/15/25 18:00 07/21/25 19:50 0.4 MG Ondansetron HCl 4 mg Q4HP PRN IV 07/14/25 19:30 07/22/25 13:58 4 MG Acetaminophen 650 mg Q6HP PRN PO 07/14/25 19:30 Nitroglycerin 0.4 mg Q5MINP PRN SL 07/14/25 19:30 Morphine Sulfate 2 mg Q30M PRN IV 07/14/25 19:30 Morphine Sulfate 4 mg Q4HPRN PRN IV 07/14/25 20:15 07/22/25 13:59 4 MG Nifedipine 60 mg DAILY PO 07/15/25 10:00 UNV Epoetin Willard-epbx 10,000 unit TUTHSA@2100 SC 07/15/25 21:00 07/20/25 22:17 10,000 UNIT Sevelamer HCl 1,600 mg TIDWM PO 07/15/25 18:15 07/21/25 19:51 1,600 MG Nifedipine 90 mg DAILY PO 07/18/25 10:00 07/22/25 10:11 90 MG Acetaminophen/ Hydrocodone Bitart 1 tab Q6HPRN PRN PO 07/20/25 11:00 Hydralazine HCl 100 mg TID PO 07/20/25 14:00 07/22/25 14:07 100 MG Clonidine HCl 0.3 mg TID PO 07/20/25 14:00 07/22/25 14:06 0.3 MG Losartan Potassium 100 mg DAILY PO 07/21/25 08:30 07/22/25 10:05 100 MG Diphenhydramine HCl 25 mg Q4HP PRN IV 07/21/25 09:45 07/21/25 10:43 25 MG Famotidine 10 mg HS PO 07/21/25 22:00 07/21/25 21:08 10 MG Methylprednisolone Sodium Succinate 40 mg BID IV 07/22/25 22:00 Examination Physical examination: General Appearance: Alert, Oriented X3, Cooperative, No acute distress HEENT: Atraumatic, PERRLA, EOMI, Mucous membrane moist/pink Respiratory: Clear to auscultation, Normal air movement Cardiovascular: Regular rate, Normal S1, Normal S2, No murmurs, no chest wall tenderness Abdominal: Normal bowel sounds, Soft, No tenderness, No hepatospenomegaly, No masses Extremities: Av fistula in left upper arm, No clubbing, No cyanosis, No edema, Normal pulses, No tenderness/swelling Skin: No rashes, No breakdown, No significant lesion Neuro: Normal gait, Normal speech, Strength at 5/5 X4 ext, Normal tone, Sensation intact, Cranial nerves 3-12 NL, Reflexes 2+ Psych/Mental Status: Mental status NL, Mood NL laboratory and microbiology Laboratory Tests 07/22/25 05:09 07/21/25 04:54 Test 07/22/25 05:09 Range/Units Serum Glucose 131 H 74-106 mg/dL Microbiology Date/Time Source Procedure Growth Status 07/15/25 00:30 Nose MRSA Screen - Final Methicillin Resistant S.aureus Complete Labs and/or images reviewed: Labs reviewed by me, Image(s) reviewed by me Problem List/Assessment/Plan Problem List/Assessment/Plan Assessment and plan: # ESRD on hemodialysis # Hypertensive emergency # Hyperkalemia # Hyperphosphatemia # Acute chest pain rule out ACS # Possible NSTEMI type 2 due to above # Acute on chronic diastolic heart failure # Anemia of chronic disease Plan: - Hemodialysis tomorrow - continue hydralazine 100 mg PO TID, nifedipine 90 mg p.o. daily, losartan potassium 100 mg daily, clonidine 0.3 mg t.i.d. for optimal control of blood pressure - Sevelamer 1600 mg PO TID - Continue antihypertensives for optimize control of blood pressure - Other management as per primary - Avoid nephrotoxic medication - strict I&O Plan discussed with Dr. Velazquez Addendum Patient seen and examined, plan discussed with resident. Agree with above, we will follow closely Plan discussed with: Patient, Other (RN) Dietary Evaluation Review Comments: 1) Continue renal cardiac diet 2) Encourage optimal PO intake 3) Follow-up with cardiology, pulmonology, and nephrology 4) Continue to monitor I&O, labs, and skin integrity Expected Outcomes/Goals: 1) appetite and labs to improve 2) f/u in 3-5 days GEORGI CRUM Jul 22, 2025 18:15 RIVER VELAZQUEZ MD Jul 22, 2025 20:35
[2025-07-22] MEDS: methylPREDNISolone SOD SUCC 125 MG/2 ML VL IV SCH (21:43)
[2025-07-23] VITALS (12 sets, daily range): BP systolic 124–150; BP diastolic 8–78; PULSE 60–96; RESP 16–19; TEMP 97.7–98.9; O2SAT 90–99
[2025-07-23 06:19] LABS: Anion Gap 11 (5-15); Carbon Dioxide 28 mmol/L (20-31)
[2025-07-23 06:25] LABS: BUN/Creatinine Ratio 8.8 (10.0-20.0); Blood Urea Nitrogen 67 mg/dL (9-23); Glucose 131 mg/dL (74-106)
[2025-07-23 06:28] LABS: Calcium 8.7 mg/dL (8.7-10.4); Chloride 94 mmol/L (98-107); Sodium 133 mmol/L (136-145)
[2025-07-23 06:30] LABS: Potassium 5.9 mmol/L (3.5-5.1)
--- NOTE | 2025-07-23 09:37 | ECG ---
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
--- NOTE | 2025-07-23 09:38 | ECG ---
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
[2025-07-23] MEDS: diphenhdrAMINE HCL 50 MG/1 ML VL IM ONE (09:45)
[2025-07-23] MEDS: InsuLIN REG 1unit/0.01ml Soln (100units/ml) IV ONE (09:45)
[2025-07-23] MEDS: DEXTROSE (50%) 50ML SYRG IV ONE (09:45)
[2025-07-23] MEDS: FUROSEMIDE 40 MG/4 ML VIAL IV ONE (09:45)
[2025-07-23] MEDS: diphenhdrAMINE HCL 50 MG/1 ML VL IV ONE (10:09)
[2025-07-23] MEDS ORDERED: FAMOTIDINE (10MG/ML) 2ML VL IV ONE (10:15)
[2025-07-23] MEDS: EPINEPHrine HCL 0.5 ML NEB ONE (10:25)
[2025-07-23] MEDS: EPINEPHrine HCL 0.5 ML NEB NEB ONE ×2 (10:25→10:55)
[2025-07-23] MEDS: methylPREDNISolone SOD SUCC 125 MG/2 ML VL IV ONE (10:36)
[2025-07-23] MEDS: FAMOTIDINE (10MG/ML) 2ML VL IV ONE (10:37)
--- NOTE | 2025-07-23 11:43 | DVHPN2 ---
Progress Note Date Seen: Jul 23, 2025 Resident Creating Document: GEORGI CRUM RESIDENT Medical Necessity Reason Pt with a Central, PICC or Fol: No Subjective Review of Systems Patient was seen and examined on the bedside. He is alert, oriented x3. Severe allergic reaction angioedema with swelling of the tongue and lips developed after taking the morning blood pressure medication clonidine, hydralazine. Received racemic epinephrine, IV methylprednisolone 125 mg once, IV Benadryl 25 mg once and discontinued all p.o. antihypertensives. Objective vital signs Vital Sign Date Time Temp Pulse Resp B/P (MAP) Pulse Ox O2 Delivery O2 Flow Rate FiO2 07/23/25 11:08 82 18 99 07/23/25 10:56 Nasal Cannula 2.0 07/23/25 10:56 28 07/23/25 08:57 97.7 148/8 (54) 97.7 Total Intake and Output 07/22/25 07/22/25 07/23/25 15:00 23:00 07:00 Intake Total 850 ml 650 ml Output Total 0 ml 300 ml Balance 850 ml 350 ml medications Current Medications Medications Dose Ordered Sig/Miguel Route Start Time Stop Time Status Last Admin Dose Admin Aspirin 162 mg DAILY PO 07/15/25 10:00 07/22/25 10:04 162 MG Tamsulosin HCl 0.4 mg QPM PO 07/15/25 18:00 07/22/25 18:34 0.4 MG Ondansetron HCl 4 mg Q4HP PRN IV 07/14/25 19:30 07/23/25 02:55 4 MG Acetaminophen 650 mg Q6HP PRN PO 07/14/25 19:30 Nitroglycerin 0.4 mg Q5MINP PRN SL 07/14/25 19:30 Morphine Sulfate 4 mg Q4HPRN PRN IV 07/14/25 20:15 07/23/25 02:55 4 MG Nifedipine 60 mg DAILY PO 07/15/25 10:00 UNV Epoetin Willard-epbx 10,000 unit TUTHSA@2100 SC 07/15/25 21:00 07/20/25 22:17 10,000 UNIT Sevelamer HCl 1,600 mg TIDWM PO 07/15/25 18:15 07/23/25 08:04 1,600 MG Acetaminophen/ Hydrocodone Bitart 1 tab Q6HPRN PRN PO 07/20/25 11:00 Diphenhydramine HCl 25 mg Q4HP PRN IV 07/21/25 09:45 07/23/25 08:03 25 MG Methylprednisolone Sodium Succinate 40 mg BID IV 07/22/25 22:00 07/23/25 08:03 40 MG Morphine Sulfate 2 mg Q30M PRN IV 07/23/25 08:45 Famotidine 10 mg DAILY IV 07/24/25 10:00 Examination Physical examination: General Appearance: Alert, Oriented X3, Cooperative, No acute distress HEENT: Atraumatic, PERRLA, EOMI, Mucous membrane moist/pink Respiratory: Bilateral wheezing Cardiovascular: Regular rate, Normal S1, Normal S2, No murmurs, no chest wall tenderness Abdominal: Normal bowel sounds, Soft, No tenderness, No hepatospenomegaly, No masses Extremities: Av fistula in left upper arm, No clubbing, No cyanosis, No edema, Normal pulses, No tenderness/swelling Skin: No rashes, No breakdown, No significant lesion Neuro: Normal gait, Normal speech, Strength at 5/5 X4 ext, Normal tone, Sensation intact, Cranial nerves 3-12 NL, Reflexes 2+ Psych/Mental Status: Mental status NL, Mood NL laboratory and microbiology Laboratory Tests 07/23/25 05:20 07/21/25 04:54 Test 07/23/25 05:20 Range/Units Serum Glucose 131 H 74-106 mg/dL Microbiology Date/Time Source Procedure Growth Status 07/15/25 00:30 Nose MRSA Screen - Final Methicillin Resistant S.aureus Complete Labs and/or images reviewed: Labs reviewed by me, Image(s) reviewed by me Problem List/Assessment/Plan Problem List/Assessment/Plan Assessment and plan: # ESRD on hemodialysis # Hypertensive emergency # Hyperkalemia # Hyperphosphatemia # Acute chest pain rule out ACS # Possible NSTEMI type 2 due to above # Acute on chronic diastolic heart failure # Anemia of chronic disease Plan: - Hemodialysis today - Hyperkalemia protocol management - Sevelamer 1600 mg PO TID - Discontinued Losartan,hydralazine and clonidine because of the risk of angioedema. - continue nifedipine ER 90 mg daily and carvedilol 6.25 b.i.d. - Other management as per primary - Avoid nephrotoxic medication - strict I&O Plan discussed with Dr. Degroot Plan discussed with: Patient, Other (RN) Dietary Evaluation Review Comments: 1) Continue renal cardiac diet 2) Encourage optimal PO intake 3) Follow-up with cardiology, pulmonology, and nephrology 4) Continue to monitor I&O, labs, and skin integrity Expected Outcomes/Goals: 1) appetite and labs to improve 2) f/u in 3-5 days GEORGI CRUM RESIDENT Jul 23, 2025 11:43
[2025-07-23] MEDS: SODIUM ZIRCONIUM CYCL 10 GM PAK PO ONE ×2 (11:59→17:21)
--- NOTE | 2025-07-23 14:34 | DVHPN2 ---
Subjective He developed angioedema this morning, had to be given racemic epinephrin, steroids, Benadryl, Pepcid, and slowly improved Etiology possibly Losartan or hydralazine and possibly clonidine Reviewed: Care Plan, H&P, Labs, Medications, Previous Orders, Radiology Changes from previous H/P or p: Changes Objective Vitals Vital Signs Date Time Temp Pulse Resp B/P (MAP) Pulse Ox O2 Delivery O2 Flow Rate FiO2 07/23/25 13:00 98.3 77 16 150/78 (102) 98 98.3 07/23/25 10:56 Nasal Cannula 2.0 07/23/25 10:56 28 Intake/Output Intake and Output 07/23/25 07:00 Intake Total 1500 ml Output Total 300 ml Balance 1200 ml Intake Oral 1500 ml Output Urine Total 300 ml # Bowel Movements 1 General Appearance: Alert, Oriented X3, Cooperative, No acute distress HEENT: Atraumatic, PERRLA, EOMI, Mucous membr. moist/pink Neck: Supple Lungs: Other (Bilateral rhonchi) Cardiovascular: Regular rate, Normal S1, Normal S2 Abdomen: Normal bowel sounds, Soft, No tenderness Extremities: Other (Trace edema bilaterally in the lower extremities) Medications Current Medications Medications Dose Ordered Sig/Miguel Route Start Time Stop Time Status Last Admin Dose Admin Aspirin 162 mg DAILY PO 07/15/25 10:00 07/22/25 10:04 162 MG Tamsulosin HCl 0.4 mg QPM PO 07/15/25 18:00 07/22/25 18:34 0.4 MG Ondansetron HCl 4 mg Q4HP PRN IV 07/14/25 19:30 07/23/25 02:55 4 MG Acetaminophen 650 mg Q6HP PRN PO 07/14/25 19:30 Nitroglycerin 0.4 mg Q5MINP PRN SL 07/14/25 19:30 Morphine Sulfate 4 mg Q4HPRN PRN IV 07/14/25 20:15 07/23/25 02:55 4 MG Nifedipine 60 mg DAILY PO 07/15/25 10:00 UNV Epoetin Willard-epbx 10,000 unit TUTHSA@2100 SC 07/15/25 21:00 07/20/25 22:17 10,000 UNIT Sevelamer HCl 1,600 mg TIDWM PO 07/15/25 18:15 07/23/25 08:04 1,600 MG Acetaminophen/ Hydrocodone Bitart 1 tab Q6HPRN PRN PO 07/20/25 11:00 Diphenhydramine HCl 25 mg Q4HP PRN IV 07/21/25 09:45 07/23/25 13:33 25 MG Methylprednisolone Sodium Succinate 40 mg BID IV 07/22/25 22:00 07/23/25 08:03 40 MG Morphine Sulfate 2 mg Q30M PRN IV 07/23/25 08:45 Famotidine 10 mg DAILY IV 07/24/25 10:00 Nifedipine 90 mg DAILY PO 07/24/25 10:00 Carvedilol 6.25 mg Q12HR PO 07/23/25 22:00 Laboratory Results Laboratory Tests 07/21/25 04:54 07/23/25 05:20 Chemistry Test 07/23/25 05:20 Calcium Level 8.7 mg/dL (8.7-10.4) Microbiology Microbiology Date/Time Source Procedure Growth Status 07/15/25 00:30 Nose MRSA Screen - Final Methicillin Resistant S.aureus Complete Assessment/Plan Assessment/Plan Acute pulmonary edema due to fluid overload End-stage renal disease on hemodialysis Noncompliance with dialysis Hypertension CAD CVA COPD Diastolic heart failure, acute on chronic, preserved ejection fraction Chronic anemia of chronic kidney disease Hyperkalemia Plan Hemodialysis today Hyperkalemia regimen was given Oxygen as needed Med neb treatments as needed Monitor closely 07/20/2025: Uncontrolled hypertension End-stage renal disease Nausea and vomiting Change hydralazine to 100 mg t.i.d. Continue nifedipine ER 90 mg daily Continue clonidine Dialysis for tomorrow Hold discharge 07/21/2025: Hold the discharge due to angioedema Angioedema could be due to atorvastatin Give Solu-Medrol IV Give Pepcid Give Benadryl as needed Hold the discharge for now He was dialyzed this morning Observed overnight Hypertension is better controlled now Discharge planning for tomorrow 07/22/25: PT eval Discharge planning 07/23/25: Angioedema: Continue pepcid, solumedrol, benadryl DC Losartan, clonidine and clonidine ESRD: HD HTN: Coreg and Nifedipine Hold discharge Observe closely Plan discussed with: Patient My Orders Orders - KILO MAHER MD Procedure Category Date Status Time Famotidine Injection PHA 07/24/25 In Process (Pepcid Injection) 10:00 Date of Service: Jul 23, 2025 Billing Provider: KILO MAHER MD Common Visit Codes: NOT BILLABLE KILO MAHER MD Jul 23, 2025 14:34
[2025-07-23] MEDS: CARVEDILOL 3.125 MG TAB PO SCH (21:43)
[2025-07-23] MEDS ORDERED: FAMOTIDINE (10MG/ML) 2ML VL IV SCH (22:00)
[2025-07-24] VITALS (8 sets, daily range): BP systolic 164–204; BP diastolic 79–107; PULSE 74–86; RESP 15–19; TEMP 98.1–99.1; O2SAT 90–99
[2025-07-24] MEDS: MORPHINE SULFATE 4 MG/ML SYR/VIAL IV PRN (00:22)
[2025-07-24 05:19] LABS: Anion Gap 12 (5-15); Carbon Dioxide 28 mmol/L (20-31)
[2025-07-24 05:24] LABS: BUN/Creatinine Ratio 9.1 (10.0-20.0); Glucose 103 mg/dL (74-106)
[2025-07-24 05:32] LABS: Blood Urea Nitrogen 53 mg/dL (9-23); Calcium 8.5 mg/dL (8.7-10.4); Chloride 94 mmol/L (98-107); Sodium 134 mmol/L (136-145)
[2025-07-24 05:34] LABS: Potassium 5.8 mmol/L (3.5-5.1)
--- NOTE | 2025-07-24 09:26 | DVHPN2 ---
Progress Note Date Seen: Jul 24, 2025 Medical Necessity Reason Pt with a Central, PICC or Fol: No Subjective Patient reports: Feels better Objective vital signs Vital Sign Date Time Temp Pulse Resp B/P (MAP) Pulse Ox O2 Delivery O2 Flow Rate FiO2 07/24/25 08:46 98.3 84 19 198/107 (137) 90 98.3 07/23/25 20:00 Nasal Cannula* 3 32 Total Intake and Output 07/23/25 07/23/25 07/24/25 15:00 23:00 07:00 Intake Total 700 ml 650 ml Output Total 1800 ml Balance -1100 ml 650 ml medications Current Medications Medications Dose Ordered Sig/Miguel Route Start Time Stop Time Status Last Admin Dose Admin Aspirin 162 mg DAILY PO 07/15/25 10:00 07/22/25 10:04 162 MG Tamsulosin HCl 0.4 mg QPM PO 07/15/25 18:00 07/22/25 18:34 0.4 MG Ondansetron HCl 4 mg Q4HP PRN IV 07/14/25 19:30 07/23/25 02:55 4 MG Acetaminophen 650 mg Q6HP PRN PO 07/14/25 19:30 Nitroglycerin 0.4 mg Q5MINP PRN SL 07/14/25 19:30 Nifedipine 60 mg DAILY PO 07/15/25 10:00 UNV Epoetin Willard-epbx 10,000 unit TUTHSA@2100 SC 07/15/25 21:00 07/20/25 22:17 10,000 UNIT Sevelamer HCl 1,600 mg TIDWM PO 07/15/25 18:15 07/23/25 17:22 1,600 MG Acetaminophen/ Hydrocodone Bitart 1 tab Q6HPRN PRN PO 07/20/25 11:00 Diphenhydramine HCl 25 mg Q4HP PRN IV 07/21/25 09:45 07/23/25 21:40 25 MG Methylprednisolone Sodium Succinate 40 mg BID IV 07/22/25 22:00 07/23/25 21:40 40 MG Morphine Sulfate 2 mg Q30M PRN IV 07/23/25 08:45 07/24/25 00:22 2 MG Nifedipine 90 mg DAILY PO 07/24/25 10:00 Carvedilol 6.25 mg Q12HR PO 07/23/25 22:00 Famotidine 10 mg DAILY IV 07/24/25 10:00 Zirconium Oxide 10 gm TID PO 07/24/25 14:00 07/26/25 13:59 Examination: GENERAL:Normal, LUNGS:Normal laboratory and microbiology Laboratory Tests 07/24/25 04:33 07/21/25 04:54 Test 07/24/25 04:33 Range/Units Serum Glucose 103 74-106 mg/dL Microbiology Date/Time Source Procedure Growth Status 07/15/25 00:30 Nose MRSA Screen - Final Methicillin Resistant S.aureus Complete Problem List/Assessment/Plan Problem List/Assessment/Plan # ESRD on hemodialysis # Hypertensive emergency # Hyperkalemia # Hyperphosphatemia # Acute chest pain rule out ACS # Possible NSTEMI type 2 due to above # Acute on chronic diastolic heart failure # Anemia of chronic disease Plan: - Hemodialysis today repeat. Obtain US left arm AVF r/o stenosis. on exam suspect has multiple thrombosis in AVF - Hyperkalemia protocol management - Sevelamer 1600 mg PO TID - Discontinued Losartan,hydralazine and clonidine because of the risk of angioedema. - continue nifedipine ER 90 mg daily and carvedilol 6.25 b.i.d. - Other management as per primary - Avoid nephrotoxic medication - strict I&O Plan discussed with: Patient My Orders My Orders Orders - CELY ORLANDO MD Procedure Category Date Status Time Renal DIET 07/24/25 Transmitted Standard(2gna,3gk,Lopho) Breakfast Sodium Zirconium PHA 07/24/25 In Process Cyclosilicate 14:00 Dietary Evaluation Review Comments: 1) Continue renal cardiac diet 2) Encourage optimal PO intake 3) Follow-up with cardiology, pulmonology, and nephrology 4) Continue to monitor I&O, labs, and skin integrity Expected Outcomes/Goals: 1) appetite and labs to improve 2) f/u in 3-5 days Total Time (mins): 36 CELY ORLANDO MD Jul 24, 2025 09:26
[2025-07-24] MEDS: SODIUM CHL 0.9% 1000 ML BAG XX ONE (09:30)
[2025-07-24] MEDS ORDERED: FAMOTIDINE (10MG/ML) 2ML VL IV SCH (10:00)
[2025-07-24] MEDS: FAMOTIDINE (10MG/ML) 2ML VL IV SCH (11:23)
[2025-07-24] MEDS: CARVEDILOL 3.125 MG TAB PO SCH (11:28)
[2025-07-24] MEDS: HYDROcodone-ACET 5/325MG TAB PO PRN (11:31)
--- NOTE | 2025-07-24 12:01 | DVHPN2 ---
Subjective He is doing better Angioedema is improving with less edema in the tongue and cheek Able to speak and able to swallow with no difficulty Potassium is high at 5.8 Blood pressure is high Reviewed: Care Plan, H&P, Labs, Medications, Previous Orders, Radiology Changes from previous H/P or p: Changes Objective Vitals Vital Signs Date Time Temp Pulse Resp B/P (MAP) Pulse Ox O2 Delivery O2 Flow Rate FiO2 07/24/25 11:29 192/92 07/24/25 11:28 74 07/24/25 08:46 98.3 19 90 98.3 07/23/25 20:00 Nasal Cannula* 3 32 Intake/Output Intake and Output 07/24/25 07:00 Intake Total 1350 ml Output Total 1800 ml Balance -450 ml Intake Oral 1350 ml Output Urine Total 1800 ml # Voids 3 # Bowel Movements 1 General Appearance: Alert, Oriented X3, Cooperative, No acute distress HEENT: Atraumatic, PERRLA, EOMI, Mucous membr. moist/pink Neck: Supple Lungs: Other (Bilateral rhonchi) Cardiovascular: Regular rate, Normal S1, Normal S2 Abdomen: Normal bowel sounds, Soft, No tenderness Extremities: Other (Trace edema bilaterally in the lower extremities) Medications Current Medications Medications Dose Ordered Sig/Miguel Route Start Time Stop Time Status Last Admin Dose Admin Aspirin 162 mg DAILY PO 07/15/25 10:00 07/24/25 11:28 162 MG Tamsulosin HCl 0.4 mg QPM PO 07/15/25 18:00 07/22/25 18:34 0.4 MG Ondansetron HCl 4 mg Q4HP PRN IV 07/14/25 19:30 07/23/25 02:55 4 MG Acetaminophen 650 mg Q6HP PRN PO 07/14/25 19:30 Nitroglycerin 0.4 mg Q5MINP PRN SL 07/14/25 19:30 Nifedipine 60 mg DAILY PO 07/15/25 10:00 UNV Epoetin Willard-epbx 10,000 unit TUTHSA@2100 SC 07/15/25 21:00 07/20/25 22:17 10,000 UNIT Sevelamer HCl 1,600 mg TIDWM PO 07/15/25 18:15 07/23/25 17:22 1,600 MG Acetaminophen/ Hydrocodone Bitart 1 tab Q6HPRN PRN PO 07/20/25 11:00 07/24/25 11:31 1 TAB Diphenhydramine HCl 25 mg Q4HP PRN IV 07/21/25 09:45 07/24/25 11:25 25 MG Methylprednisolone Sodium Succinate 40 mg BID IV 07/22/25 22:00 07/24/25 11:25 40 MG Morphine Sulfate 2 mg Q30M PRN IV 07/23/25 08:45 07/24/25 00:22 2 MG Nifedipine 90 mg DAILY PO 07/24/25 10:00 07/24/25 11:29 90 MG Famotidine 10 mg DAILY IV 07/24/25 10:00 07/24/25 11:23 10 MG Zirconium Oxide 10 gm TID PO 07/24/25 14:00 07/26/25 13:59 Carvedilol 12.5 mg Q12HR PO 07/24/25 10:00 07/24/25 11:28 12.5 MG Laboratory Results Laboratory Tests 07/21/25 04:54 07/24/25 04:33 Chemistry Test 07/24/25 04:33 Calcium Level 8.5 mg/dL (8.7-10.4) L Microbiology Microbiology Date/Time Source Procedure Growth Status 07/15/25 00:30 Nose MRSA Screen - Final Methicillin Resistant S.aureus Complete Assessment/Plan Assessment/Plan Acute pulmonary edema due to fluid overload End-stage renal disease on hemodialysis Noncompliance with dialysis Hypertension CAD CVA COPD Diastolic heart failure, acute on chronic, preserved ejection fraction Chronic anemia of chronic kidney disease Hyperkalemia Plan Hemodialysis today Hyperkalemia regimen was given Oxygen as needed Med neb treatments as needed Monitor closely 07/20/2025: Uncontrolled hypertension End-stage renal disease Nausea and vomiting Change hydralazine to 100 mg t.i.d. Continue nifedipine ER 90 mg daily Continue clonidine Dialysis for tomorrow Hold discharge 07/21/2025: Hold the discharge due to angioedema Angioedema could be due to atorvastatin Give Solu-Medrol IV Give Pepcid Give Benadryl as needed Hold the discharge for now He was dialyzed this morning Observed overnight Hypertension is better controlled now Discharge planning for tomorrow 07/22/25: PT eval Discharge planning 07/23/25: Angioedema: Continue pepcid, solumedrol, benadryl DC Losartan, clonidine and clonidine ESRD: HD HTN: Coreg and Nifedipine Hold discharge Observe closely 07/24/2025: Angioedema is improving, continue IV steroids and Benadryl p.r.n. and Pepcid Hyperkalemia: Scheduled for dialysis today End-stage renal disease: Dialysis per Nephrology Hypertension: Increase Coreg to 12.5 mg twice a day and continue nifedipine ER 90 mg daily Monitor closely Plan discussed with: Patient My Orders Orders - KILO MAHER MD Procedure Category Date Status Time Famotidine Injection PHA 07/24/25 In Process (Pepcid Injection) 10:00 Carvedilol Tablet PHA 07/24/25 In Process (Coreg Tablet) 10:00 Date of Service: Jul 24, 2025 Billing Provider: KILO MAHER MD Common Visit Codes: NOT BILLABLE KILO MAHER MD Jul 24, 2025 12:01
--- NOTE | 2025-07-24 12:07 | DVH ---
Upper Extremity Venous Duplex Clinical History: Pain, SIDED ARTERIOVENOUS FISTULA Comparison: None Technique: Duplex Doppler evaluation of the venous system of the LEFT lower neck and upper extremity including c olor Doppler and spectral/pulsed waveform analysis was performed. Findings: The subclavian arterial flow is 235 cm/sec Axillary artery: Flow 151 cm/s Proximal brachial artery: 228 cm/s Radial artery: 65 cm/sec Ulnar artery: 148 cm/sec Impression: 1. Fistula appears patent. 2. No vascular thrombus visualized. 3. Elevated velocities in outflow. Subclavian proximal brachial (outflow)621.2 cm/sec
[2025-07-24] MEDS: SODIUM ZIRCONIUM CYCL 10 GM PAK PO SCH (14:19)
[2025-07-25] VITALS (8 sets, daily range): BP systolic 157–192; BP diastolic 65–98; PULSE 19–81; RESP 16–91; TEMP 97.6–98.4; O2SAT 91–99
[2025-07-25 06:08] LABS: Anion Gap 17 (5-15); Carbon Dioxide 26 mmol/L (20-31); Potassium 4.9 mmol/L (3.5-5.1); Sodium 138 mmol/L (136-145)
[2025-07-25 06:09] LABS: Chloride 95 mmol/L (98-107)
[2025-07-25 06:14] LABS: BUN/Creatinine Ratio 10.8 (10.0-20.0)
[2025-07-25 06:15] LABS: Blood Urea Nitrogen 61 mg/dL (9-23); Glucose 135 mg/dL (74-106)
[2025-07-25 06:16] LABS: Calcium 8.1 mg/dL (8.7-10.4)
[2025-07-25] MEDS: MINOXIDIL 2.5 MG TAB PO SCH (12:00)
--- NOTE | 2025-07-25 12:01 | DVHPN2 ---
Progress Note Date Seen: Jul 25, 2025 Medical Necessity Reason Pt with a Central, PICC or Fol: No Subjective Patient reports: Feels better Objective vital signs Vital Sign Date Time Temp Pulse Resp B/P (MAP) Pulse Ox O2 Delivery O2 Flow Rate FiO2 07/25/25 11:53 186/92 07/25/25 11:52 68 07/25/25 08:52 97.9 18 96 97.9 07/25/25 07:30 Nasal Cannula* 3 32 Total Intake and Output 07/24/25 07/24/25 07/25/25 15:00 23:00 07:00 Intake Total 1350 ml 1640 ml Output Total 701 ml 5 ml Balance 649 ml 1635 ml medications Current Medications Medications Dose Ordered Sig/Miguel Route Start Time Stop Time Status Last Admin Dose Admin Aspirin 162 mg DAILY PO 07/15/25 10:00 07/25/25 11:51 162 MG Tamsulosin HCl 0.4 mg QPM PO 07/15/25 18:00 07/24/25 16:38 0.4 MG Ondansetron HCl 4 mg Q4HP PRN IV 07/14/25 19:30 07/23/25 02:55 4 MG Acetaminophen 650 mg Q6HP PRN PO 07/14/25 19:30 Nitroglycerin 0.4 mg Q5MINP PRN SL 07/14/25 19:30 Nifedipine 60 mg DAILY PO 07/15/25 10:00 UNV Epoetin Willard-epbx 10,000 unit TUTHSA@2100 SC 07/15/25 21:00 07/24/25 21:17 10,000 UNIT Sevelamer HCl 1,600 mg TIDWM PO 07/15/25 18:15 07/23/25 17:22 1,600 MG Acetaminophen/ Hydrocodone Bitart 1 tab Q6HPRN PRN PO 07/20/25 11:00 07/25/25 06:42 1 TAB Diphenhydramine HCl 25 mg Q4HP PRN IV 07/21/25 09:45 07/25/25 06:40 25 MG Methylprednisolone Sodium Succinate 40 mg BID IV 07/22/25 22:00 07/25/25 11:51 40 MG Morphine Sulfate 2 mg Q30M PRN IV 07/23/25 08:45 07/24/25 00:22 2 MG Nifedipine 90 mg DAILY PO 07/24/25 10:00 07/25/25 11:53 90 MG Famotidine 10 mg DAILY IV 07/24/25 10:00 07/25/25 11:50 10 MG Zirconium Oxide 10 gm TID PO 07/24/25 14:00 07/26/25 13:59 07/25/25 06:39 10 GM Carvedilol 12.5 mg Q12HR PO 07/24/25 10:00 07/25/25 11:52 12.5 MG Examination: GENERAL:Normal, CVS:Normal laboratory and microbiology Laboratory Tests 07/25/25 05:06 07/21/25 04:54 Test 07/25/25 05:06 Range/Units Serum Glucose 135 H 74-106 mg/dL Microbiology Date/Time Source Procedure Growth Status 07/15/25 00:30 Nose MRSA Screen - Final Methicillin Resistant S.aureus Complete Problem List/Assessment/Plan Problem List/Assessment/Plan # ESRD on hemodialysis # Hypertensive emergency # Hyperkalemia # Hyperphosphatemia # Acute chest pain rule out ACS # Possible NSTEMI type 2 due to above # Acute on chronic diastolic heart failure # Anemia of chronic disease Plan: - Hemodialysis saturday repeat. - no thrombus in AVF mild outflow stenosis , rec outpatient fistulogram - Sevelamer 1600 mg PO TID - Discontinued Losartan,hydralazine and clonidine because of the risk of angioedema. - continue nifedipine ER 90 mg daily and carvedilol 6.25 b.i.d. add minoxidil - Other management as per primary - Avoid nephrotoxic medication - strict I&O Plan discussed with: Patient Dietary Evaluation Review Comments: 1) Continue renal cardiac diet 2) Encourage optimal PO intake 3) Follow-up with cardiology, pulmonology, and nephrology 4) Continue to monitor I&O, labs, and skin integrity Expected Outcomes/Goals: 1) appetite and labs to improve 2) f/u in 3-5 days Total Time (mins): 33 CELY ORLANDO MD Jul 25, 2025 12:01
--- NOTE | 2025-07-25 13:17 | DVHPN2 ---
Subjective He is doing better Blood pressure is still high however No swelling or edema in his mouth or tongue Hyperkalemia is better Reviewed: Care Plan, H&P, Labs, Medications, Previous Orders, Radiology Changes from previous H/P or p: Changes Objective Vitals Vital Signs Date Time Temp Pulse Resp B/P (MAP) Pulse Ox O2 Delivery O2 Flow Rate FiO2 07/25/25 12:57 97.8 81 20 96 97.8 07/25/25 07:30 Nasal Cannula* 3 32 Intake/Output Intake and Output 07/25/25 07:00 Intake Total 2990 ml Output Total 706 ml Balance 2284 ml Intake Oral 2990 ml Output Urine Total 700 ml Stool Total 6 ml # Bowel Movements 1 General Appearance: Alert, Oriented X3, Cooperative, No acute distress HEENT: Atraumatic, PERRLA, EOMI, Mucous membr. moist/pink Neck: Supple Lungs: Other (Bilateral rhonchi) Cardiovascular: Regular rate, Normal S1, Normal S2 Abdomen: Normal bowel sounds, Soft, No tenderness Extremities: Other (Trace edema bilaterally in the lower extremities) Medications Current Medications Medications Dose Ordered Sig/Miguel Route Start Time Stop Time Status Last Admin Dose Admin Aspirin 162 mg DAILY PO 07/15/25 10:00 07/25/25 11:51 162 MG Tamsulosin HCl 0.4 mg QPM PO 07/15/25 18:00 07/24/25 16:38 0.4 MG Ondansetron HCl 4 mg Q4HP PRN IV 07/14/25 19:30 07/23/25 02:55 4 MG Acetaminophen 650 mg Q6HP PRN PO 07/14/25 19:30 Nitroglycerin 0.4 mg Q5MINP PRN SL 07/14/25 19:30 Nifedipine 60 mg DAILY PO 07/15/25 10:00 UNV Epoetin Willard-epbx 10,000 unit TUTHSA@2100 SC 07/15/25 21:00 07/24/25 21:17 10,000 UNIT Sevelamer HCl 1,600 mg TIDWM PO 07/15/25 18:15 07/23/25 17:22 1,600 MG Acetaminophen/ Hydrocodone Bitart 1 tab Q6HPRN PRN PO 07/20/25 11:00 07/25/25 06:42 1 TAB Diphenhydramine HCl 25 mg Q4HP PRN IV 10/1/25 09:45 07/25/25 06:40 25 MG Methylprednisolone Sodium Succinate 40 mg BID IV 07/22/25 22:00 07/25/25 11:51 40 MG Morphine Sulfate 2 mg Q30M PRN IV 07/23/25 08:45 07/24/25 00:22 2 MG Nifedipine 90 mg DAILY PO 07/24/25 10:00 07/25/25 11:53 90 MG Famotidine 10 mg DAILY IV 07/24/25 10:00 07/25/25 11:50 10 MG Zirconium Oxide 10 gm TID PO 07/24/25 14:00 07/26/25 13:59 07/25/25 06:39 10 GM Carvedilol 12.5 mg Q12HR PO 07/24/25 10:00 07/25/25 11:52 12.5 MG Minoxidil 5 mg Q12HR PO 07/25/25 12:00 Laboratory Results Laboratory Tests 07/21/25 04:54 07/25/25 05:06 Chemistry Test 07/25/25 05:06 Calcium Level 8.1 mg/dL (8.7-10.4) L Microbiology Microbiology Date/Time Source Procedure Growth Status 07/15/25 00:30 Nose MRSA Screen - Final Methicillin Resistant S.aureus Complete Assessment/Plan Assessment/Plan Acute pulmonary edema due to fluid overload End-stage renal disease on hemodialysis Noncompliance with dialysis Hypertension CAD CVA COPD Diastolic heart failure, acute on chronic, preserved ejection fraction Chronic anemia of chronic kidney disease Hyperkalemia Plan Hemodialysis today Hyperkalemia regimen was given Oxygen as needed Med neb treatments as needed Monitor closely 07/20/2025: Uncontrolled hypertension End-stage renal disease Nausea and vomiting Change hydralazine to 100 mg t.i.d. Continue nifedipine ER 90 mg daily Continue clonidine Dialysis for tomorrow Hold discharge 07/21/2025: Hold the discharge due to angioedema Angioedema could be due to atorvastatin Give Solu-Medrol IV Give Pepcid Give Benadryl as needed Hold the discharge for now He was dialyzed this morning Observed overnight Hypertension is better controlled now Discharge planning for tomorrow 07/22/25: PT eval Discharge planning 07/23/25: Angioedema: Continue pepcid, solumedrol, benadryl DC Losartan, clonidine and clonidine ESRD: HD HTN: Coreg and Nifedipine Hold discharge Observe closely 07/24/2025: Angioedema is improving, continue IV steroids and Benadryl p.r.n. and Pepcid Hyperkalemia: Scheduled for dialysis today End-stage renal disease: Dialysis per Nephrology Hypertension: Increase Coreg to 12.5 mg twice a day and continue nifedipine ER 90 mg daily Monitor closely 07/25/2025: Add minoxidil for the blood pressure Continue nifedipine and Coreg Hemodialysis per nephrology Continue steroids and Benadryl and Pepcid Discharge planning for tomorrow after dialysis Plan discussed with: Patient Date of Service: Jul 25, 2025 Billing Provider: KILO MAHER MD Common Visit Codes: NOT BILLABLE KILO MAHER MD Jul 25, 2025 13:17
[2025-07-25] MEDS: HYDROcodone-ACET 10/325MG TAB PO PRN (16:55)
[2025-07-26] VITALS (8 sets, daily range): BP systolic 161–211; BP diastolic 69–102; PULSE 20–75; RESP 16–69; TEMP 97.2–99; O2SAT 92–98
[2025-07-26] MEDS: SODIUM CHL 0.9% 1000 ML BAG XX ONE (07:15)
--- NOTE | 2025-07-26 11:39 | DVHPN2 ---
Progress Note Date Seen: Jul 26, 2025 Medical Necessity Reason Pt with a Central, PICC or Fol: No Subjective Patient reports: No new complaints Other Systems: Patient seen and examined by myself today in follow-up Patient examined hemodialysis, blood pressure stable Objective vital signs Vital Sign Date Time Temp Pulse Resp B/P (MAP) Pulse Ox O2 Delivery O2 Flow Rate FiO2 07/26/25 10:42 195/102 07/26/25 10:41 73 07/26/25 09:00 98.4 21 97 98.4 07/26/25 07:30 Nasal Cannula* 3 32 Total Intake and Output 07/25/25 07/25/25 07/26/25 15:00 23:00 07:00 Intake Total 750 ml 1000 ml 2640 ml Balance 750 ml 1000 ml 2640 ml medications Current Medications Medications Dose Ordered Sig/Miguel Route Start Time Stop Time Status Last Admin Dose Admin Aspirin 162 mg DAILY PO 07/15/25 10:00 07/26/25 10:42 162 MG Tamsulosin HCl 0.4 mg QPM PO 07/15/25 18:00 07/25/25 16:54 0.4 MG Ondansetron HCl 4 mg Q4HP PRN IV 07/14/25 19:30 07/23/25 02:55 4 MG Acetaminophen 650 mg Q6HP PRN PO 07/14/25 19:30 Nitroglycerin 0.4 mg Q5MINP PRN SL 07/14/25 19:30 Nifedipine 60 mg DAILY PO 07/15/25 10:00 UNV Epoetin Willard-epbx 10,000 unit TUTHSA@2100 SC 07/15/25 21:00 07/24/25 21:17 10,000 UNIT Sevelamer HCl 1,600 mg TIDWM PO 07/15/25 18:15 07/23/25 17:22 1,600 MG Acetaminophen/ Hydrocodone Bitart 1 tab Q6HPRN PRN PO 07/20/25 11:00 07/25/25 22:44 1 TAB Diphenhydramine HCl 25 mg Q4HP PRN IV 07/21/25 09:45 07/26/25 10:48 25 MG Methylprednisolone Sodium Succinate 40 mg BID IV 07/22/25 22:00 07/26/25 10:40 40 MG Morphine Sulfate 2 mg Q30M PRN IV 07/23/25 08:45 07/24/25 00:22 2 MG Nifedipine 90 mg DAILY PO 07/24/25 10:00 07/26/25 10:41 90 MG Famotidine 10 mg DAILY IV 07/24/25 10:00 07/26/25 10:40 10 MG Zirconium Oxide 10 gm TID PO 07/24/25 14:00 07/26/25 13:59 07/26/25 06:45 10 GM Carvedilol 12.5 mg Q12HR PO 07/24/25 10:00 07/26/25 10:41 12.5 MG Minoxidil 5 mg Q12HR PO 07/25/25 12:00 07/26/25 10:42 5 MG Acetaminophen/ Hydrocodone Bitart 1 tab Q8HP PRN PO 07/25/25 13:30 07/26/25 10:39 1 TAB Examination: LUNGS:Normal, CVS:Normal, MSK:Normal laboratory and microbiology Laboratory Tests 07/25/25 05:06 07/21/25 04:54 Test 07/25/25 05:06 Range/Units Serum Glucose 135 H 74-106 mg/dL Microbiology Date/Time Source Procedure Growth Status 07/15/25 00:30 Nose MRSA Screen - Final Methicillin Resistant S.aureus Complete Problem List/Assessment/Plan Problem List/Assessment/Plan ESRD on hemodialysis Hypertensive emergency Hyperkalemia secondary to dietary indiscretion Hyperphosphatemia NSTEMI Acute on chronic diastolic heart failure Anemia of chronic disease Recommendations Continue with UF to 3 L as tolerated Epogen 36835 subQ 3 times weekly Strict I&Os Phosphate binders Renal diet Blood pressure control Cardiology consult We will continue to follow Total care time 36 minutes Plan discussed with: Patient Dietary Evaluation Review Comments: 1) Continue renal cardiac diet 2) Encourage optimal PO intake 3) Follow-up with cardiology, pulmonology, and nephrology 4) Continue to monitor I&O, labs, and skin integrity Expected Outcomes/Goals: 1) appetite and labs to improve 2) f/u in 3-5 days RAKESH CRAIN MD Jul 26, 2025 11:39
--- NOTE | 2025-07-26 13:03 | DVHPN2 ---
Subjective No new complaints other than weakness Reviewed: Care Plan, H&P, Labs, Medications, Previous Orders, Radiology Changes from previous H/P or p: Changes Objective Vitals Vital Signs Date Time Temp Pulse Resp B/P (MAP) Pulse Ox O2 Delivery O2 Flow Rate FiO2 07/26/25 12:01 70 168/99 07/26/25 09:00 98.4 21 97 98.4 07/26/25 07:30 Nasal Cannula* 3 32 Intake/Output Intake and Output 07/26/25 07:00 Intake Total 4390 ml Balance 4390 ml Intake Oral 4390 ml # Voids 8 # Bowel Movements 2 General Appearance: Alert, Oriented X3, Cooperative, No acute distress HEENT: Atraumatic, PERRLA, EOMI, Mucous membr. moist/pink Neck: Supple Lungs: Other (Bilateral rhonchi) Cardiovascular: Regular rate, Normal S1, Normal S2 Abdomen: Normal bowel sounds, Soft, No tenderness Extremities: Other (Trace edema bilaterally in the lower extremities) Medications Current Medications Medications Dose Ordered Sig/Miguel Route Start Time Stop Time Status Last Admin Dose Admin Aspirin 162 mg DAILY PO 07/15/25 10:00 07/26/25 10:42 162 MG Tamsulosin HCl 0.4 mg QPM PO 07/15/25 18:00 07/25/25 16:54 0.4 MG Ondansetron HCl 4 mg Q4HP PRN IV 07/14/25 19:30 07/23/25 02:55 4 MG Acetaminophen 650 mg Q6HP PRN PO 07/14/25 19:30 Nitroglycerin 0.4 mg Q5MINP PRN SL 07/14/25 19:30 Nifedipine 60 mg DAILY PO 07/15/25 10:00 UNV Epoetin Willard-epbx 10,000 unit TUTHSA@2100 SC 07/15/25 21:00 07/24/25 21:17 10,000 UNIT Sevelamer HCl 1,600 mg TIDWM PO 07/15/25 18:15 07/23/25 17:22 1,600 MG Acetaminophen/ Hydrocodone Bitart 1 tab Q6HPRN PRN PO 07/20/25 11:00 07/25/25 22:44 1 TAB Diphenhydramine HCl 25 mg Q4HP PRN IV 07/21/25 09:45 07/26/25 10:48 25 MG Methylprednisolone Sodium Succinate 40 mg BID IV 07/22/25 22:00 07/26/25 10:40 40 MG Morphine Sulfate 2 mg Q30M PRN IV 07/23/25 08:45 07/24/25 00:22 2 MG Nifedipine 90 mg DAILY PO 07/24/25 10:00 07/26/25 10:41 90 MG Famotidine 10 mg DAILY IV 07/24/25 10:00 07/26/25 10:40 10 MG Zirconium Oxide 10 gm TID PO 07/24/25 14:00 07/26/25 13:59 07/26/25 06:45 10 GM Carvedilol 12.5 mg Q12HR PO 07/24/25 10:00 07/26/25 10:41 12.5 MG Minoxidil 5 mg Q12HR PO 07/25/25 12:00 07/26/25 10:42 5 MG Acetaminophen/ Hydrocodone Bitart 1 tab Q8HP PRN PO 07/25/25 13:30 07/26/25 10:39 1 TAB Laboratory Results Laboratory Tests 07/21/25 04:54 07/25/25 05:06 Microbiology Microbiology Date/Time Source Procedure Growth Status 07/15/25 00:30 Nose MRSA Screen - Final Methicillin Resistant S.aureus Complete Assessment/Plan Assessment/Plan Acute pulmonary edema due to fluid overload End-stage renal disease on hemodialysis Noncompliance with dialysis Hypertension CAD CVA COPD Diastolic heart failure, acute on chronic, preserved ejection fraction Chronic anemia of chronic kidney disease Hyperkalemia Plan Hemodialysis today Hyperkalemia regimen was given Oxygen as needed Med neb treatments as needed Monitor closely 07/20/2025: Uncontrolled hypertension End-stage renal disease Nausea and vomiting Change hydralazine to 100 mg t.i.d. Continue nifedipine ER 90 mg daily Continue clonidine Dialysis for tomorrow Hold discharge 07/21/2025: Hold the discharge due to angioedema Angioedema could be due to atorvastatin Give Solu-Medrol IV Give Pepcid Give Benadryl as needed Hold the discharge for now He was dialyzed this morning Observed overnight Hypertension is better controlled now Discharge planning for tomorrow 07/22/25: PT eval Discharge planning 07/23/25: Angioedema: Continue pepcid, solumedrol, benadryl DC Losartan, clonidine and clonidine ESRD: HD HTN: Coreg and Nifedipine Hold discharge Observe closely 07/24/2025: Angioedema is improving, continue IV steroids and Benadryl p.r.n. and Pepcid Hyperkalemia: Scheduled for dialysis today End-stage renal disease: Dialysis per Nephrology Hypertension: Increase Coreg to 12.5 mg twice a day and continue nifedipine ER 90 mg daily Monitor closely 07/25/2025: Add minoxidil for the blood pressure Continue nifedipine and Coreg Hemodialysis per nephrology Continue steroids and Benadryl and Pepcid Discharge planning for tomorrow after dialysis 07/26/2025: Generalized weakness: The patient needs to go to rehab for SNF for physical therapy End-stage renal disease: Hemodialysis due today Hypertension: Continue same regimen with the Coreg and nifedipine ER and minoxidil Angioedema: Resolved: Reduce the steroids dose, changed to prednisone Plan discussed with: Patient My Orders Orders - KILO MAHER MD Procedure Category Date Status Time Hydrocodone-Acet PHA 07/25/25 In Process 10/325mg Tab ([employer] 13:30 * Electrologist CONS 07/26/25 Verified Consult Date of Service: Jul 26, 2025 Billing Provider: KILO MAHER MD Common Visit Codes: NOT BILLABLE KILO MAHER MD Jul 26, 2025 13:03
--- NOTE | 2025-07-26 17:44 | DVHINCON2 ---
Date Seen: Jul 26, 2025 Referring Physician MD Mariaa History of Present Illness This is a 70-year-old man who presented to the emergency room with a chief complaint of chest pain. The patient presented with complaints of chest pain described as left-sided, sharp in nature, nonradiating, non provoked, and associated with mild shortness of breath. The patient who is ESRD on HD admitted to missing two dialysis sessions prior to arrival. At time of assessment, he complained of chest discomfort with an associated systolic blood pressure in the 160s mmHg. Multiple 12 lead electrocardiograms were reviewed including those upon admission which revealed a sinus rhythm with global T-wave inversion and a 12 lead electrocardiogram completed today which revealed a sinus rhythm with ventricular bigeminy/trigeminy and similar T-wave changes. Troponin levels peaked at 168 ng/L. Reports an admission to [facility] last year where he underwent a cardiac catheterization without catheter based intervention given non critical coronary artery disease. Significant medical hi story includes hypertension, end-stage renal disease on hemodialysis, renal cardiac syndrome type 4, COPD, anemia in chronic disease, nicotine dependence including 25 pack-years, and recent history of methamphetamine use last month. Past Medical History Past medical history reviewed. No other significant than mentioned above. Past Surgical History Hemodialysis access Hernia repair Family History: Arthritis G8 MOTHER Cardiovascular disease G8 FATHER Diabetes during Diabetes mellitus G8 MOTHER G8 FATHER Family History Family history reviewed. Social History Denies the use of alcohol. Admits to tobacco use, one pack of cigarettes every two days. UDS positive for methamphetamines last month. Denies active use. Allergies: Coded Allergies: Clonidine (Verified Allergy, Severe, 07/23/25) Pts tongue becomes swollen Hydralazine (Verified Allergy, Severe, 07/24/25) Tongue swelled up Losartan (Verified Allergy, Severe, 07/24/25) Tongue swell Home Meds Active Scripts Atorvastatin Calcium (ATORVASTATIN CALCIUM) 40 Mg Tab, 40 MG PO DAILY for 30 Days, #30 TAB 0 Refills Prov:RANJAN SZYMANSKI RESIDENT 11/10/24 Reported Medications Furosemide (Furosemide) 40 Mg Tab, 1 TAB PO DAILY for 90 Days, #90 07/15/25 Sertraline Hcl (Sertraline Hcl) 25 Mg Tab, 1 TAB PO QAM for 60 Days, #60 07/15/25 Nifedipine (Nifedipine Er) 90 Mg Tab, 1 TAB PO DAILY for 90 Days, #90 07/15/25 Clonidine Hydrochloride (Clonidine Hydrochloride) 0.3 Mg Tab, 1 TAB PO Q8HR PRN for BP GREATER THAN 180 for 90 Days, #270 11/06/24 Sevelamer Carbonate (Renvela) 800 Mg Tab, 2 TAB PO TIDWM for 90 Days, #540 10/27/24 Alprazolam (Alprazolam) 1 Mg Tab, 1 TAB PO DAILYPRN PRN for ANXIETY for 30 Days, #30 10/27/24 Tamsulosin Hcl (Tamsulosin Hcl) 0.4 Mg Cap, 1 CAP PO DAILY 01/14/24 Hydralazine Hcl (Hydralazine Hcl) 100 Mg Tab, 1 TAB PO Q8HR for BP GREATER THAN 140/80 for 30 Days, #30 01/14/24 Home Meds Home medications reviewed. Current Medications Current Medications Medications (Trade) Dose Ordered Sig/Miguel Route PRN Reason Start Time Stop Time Status Last Admin Prednisone 20 mg DAILY PO 07/27/25 10:00 Review of Systems Constitutional: No symptom reported Ears, Nose, & Throat: No symptom reported Eyes: No symptom reported Neurological: No symptoms reported Pulmonary/Respiratory: SOB Cardiovascular: Chest pain Gastrointestinal: No symptom reported Genitourinary: No symptom reported Musculoskeletal: No symptom reported Skin: No symptom reported Psychiatric: No symptom reported Endocrine: No symptom reported Hemotologic/Lymphatic: No symptom reported Vital Signs Vital Signs Date Time Temp Pulse Resp B/P (MAP) Pulse Ox O2 Delivery O2 Flow Rate FiO2 07/26/25 16:30 98.8 71 21 161/83 (109) 97 98.8 07/26/25 07:30 Nasal Cannula* 3 32 Physical Exam General Appearance: Cooperative. Well developed. Well nourished. In no acute distress Head Exam: Normal inspection Neck Exam: Normal inspection. Non-tender. Normal alignment Pulmonary/Respiratory: Chest non-tender. Diminished bilateral breath sounds Cardiovascular/Chest: Regular rate and rhythm. S1, S2. Sinus rhythm with intermittent ventricular bigeminy/trigeminy. Peripheral Pulses: 2+ Radial (R). 2+ Radial (L). 2+ Pedal (R). 2+ Pedal (L) Abdominal Exam: Normal bowel sounds. Soft. Ankle Exam: Negative ankle edema Lower extremities: Negative lower extremity edema Neuro/Mental Status: A&O x4. Coherent Thoughts/Psych: Normal thought pattern. Appropriate mood and affect. Good judgement and insight Appearance: In no acute distress Skin Exam: Normal inspection. Normal color. Warm. Dry Labs/Diagnostic Data Labs Test 07/25/25 05:06 07/23/25 11:53 07/21/25 04:54 07/20/25 04:58 Range/Units Sodium Level 138 136-145 mmol/L Potassium Level 4.9 3.5-5.1 mmol/L Chloride Level 95 L 98-107 mmol/L Carbon Dioxide Level 26 20-31 mmol/L Anion Gap 17 H 5-15 Blood Urea Nitrogen 61 H 9-23 mg/dL Creatinine 5.63 H 0.700-1.30 mg/dL Glomerular Filtration Rate Calc 10 >90 mL/min BUN/Creatinine Ratio 10.8 10.0-20.0 Serum Glucose 135 H 74-106 mg/dL Calcium Level 8.1 L 8.7-10.4 mg/dL POC Glucose 162 H 70-106 mg/dl White Blood Count 8.5 4.4-10.8 10^3/uL Red Blood Count 3.69 L 4.5-5.90 10^6/uL Hemoglobin 10.0 L 13.5-17.5 g/dL Hematocrit 30.0 L 41.0-53.0 % Mean Corpuscular Volume 81.2 80.0-100.0 fL Mean Corpuscular Hemoglobin 27.0 L 28.0-32.0 pg Mean Corpuscular Hemoglobin Concent 33.2 32.0-36.0 g/dL Red Cell Distribution Width 17.1 H 11.8-14.3 % Platelet Count 280 140-450 10^3/uL Mean Platelet Volume 8.0 6.9-10.8 fL Neutrophils (%) (Auto) 87.2 H 37.0-80.0 % Lymphocytes (%) (Auto) 5.7 L 10.0-50.0 % Monocytes (%) (Auto) 4.1 0.0-12.0 % Eosinophils (%) (Auto) 2.6 0.0-7.0 % Basophils (%) (Auto) 0.4 0.0-2.0 % Neutrophils # (Auto) 7.4 1.6-8.6 10 ^3/uL Lymphocytes # (Auto) 0.5 0.4-5.4 10 ^3/uL Monocytes # (Auto) 0.3 0-1.3 10 ^3/uL Eosinophils # (Auto) 0.2 0-0.8 10 ^3/uL Basophils # (Auto) 0 0-0.2 10 ^3/uL Nucleated Red Blood Cells 0.0 % Magnesium Level 2.1 1.6-2.6 mg/dL Test 07/15/25 04:37 07/14/25 17:16 07/14/25 13:47 Range/Units Phosphorus Level 8.7 H 2.4-5.1 mg/dL Iron Level 82 65-175 ug/dL Total Iron Binding Capacity 223 L 250-425 ug/dL Percent Iron Saturation 36.8 20-55 % Ferritin 214.8 22-322 ng/mL Hepatitis A IgM Antibody Negative Hepatitis B Surface Antigen Negative Negative Hepatitis B Core IgM Antibody Negative Negative Hepatitis C Antibody Positive *A Negative Troponin I High Sensitivity 168 *H </=54 ng/L Total Bilirubin < 0.2 L 0.2-1.0 mg/dL Aspartate Amino Transferase (AST) 18 13-40 U/L Alanine Aminotransferase (ALT) 14 7-40 U/L Alkaline Phosphatase 76 46-116 U/L B-Type Natriuretic Peptide 4992.20 0-100 pg/mL Total Protein 6.1 5.7-8.2 g/dL Albumin 3.5 3.2-4.8 g/dL Microbiology Date/Time Source Procedure Growth Status 07/15/25 00:30 Nose MRSA Screen - Final Methicillin Resistant S.aureus Complete Assessment Chest pain in the setting of hypertensive emergency Ventricular bigeminy/trigeminy ESRD on hemodialysis with associated hyperkalemia Chronic renocardiac syndrome type 4 Methamphetamine/tobacco dependence NSTEMI, likely type 2 secondary to above Anemia in chronic disease Medical noncompliance Obesity Plan/Recommendation (Dr. Newell) Recent transthoracic echocardiogram revealed a LVEF of 55-60% with no gross wall motion abnormality and moderate aortic insufficiency. The patient developed ve ntricular bigeminy and trigeminy for which carvedilol has been uptitrated in addition to magnesium therapy. Continue aggressive blood pressure control, isosorbide mononitrate added to medication schedule. Up-titrate as needed for a target SBP <140 mmHg. There is no further cardiac workup indicated at this time. Kindly call if in need to re-consult. Thank you for allowing us to participate in this patient's care. This medical document was created using an electronic medical record system with voice recognition software and computerized dictation system. Although this document has been carefully reviewed, there might still be some phonetic and typographical errors. Occasional wrong-word or ``sound-alike substitutions may have occurred due to the inherent limitations of voice recognition software. These areas are purely typographical due to imperfections of the software programs and do not reflect any compromise in the patient's medical care. Please read the chart carefully and recognize, using context, where these substitutions have occurred. Plan discussed with: Patient, Other NYHA Physical activity limitations: NA Date of Service: Jul 26, 2025 Billing Provider: RENZO POND Cardiology Common Codes: [id number] INP/OBS CARE (High) RENZO POND Jul 26, 2025 17:44
[2025-07-26] MEDS: ISOSORBIDE MONONITRATE ER 60 MG TAB PO ONE (18:58)
[2025-07-26] MEDS: MAGNESIUM SULFATE 1GM/100ML 100 ML IV ONE (18:59)
[2025-07-26] MEDS: CARVEDILOL 3.125 MG TAB PO SCH (21:03)
[2025-07-27 01:00] VITALS: BP 144/93; PULSE 73; RESP 16; TEMP 97.5; O2SAT 92
[2025-07-27 05:00] VITALS: BP 159/88; PULSE 66; RESP 18; TEMP 97.5; O2SAT 88
[2025-07-27 05:37] LABS: Anion Gap 16 (5-15); Carbon Dioxide 29 mmol/L (20-31); Potassium 4.4 mmol/L (3.5-5.1); Sodium 137 mmol/L (136-145)
[2025-07-27 05:40] LABS: Calcium 7.6 mg/dL (8.7-10.4); Chloride 92 mmol/L (98-107)
[2025-07-27 05:43] LABS: BUN/Creatinine Ratio 11.1 (10.0-20.0)
[2025-07-27 05:44] LABS: Blood Urea Nitrogen 68 mg/dL (9-23); Glucose 123 mg/dL (74-106)
[2025-07-27 07:45] VITALS: RESP 18
[2025-07-27 08:00] VITALS: PULSE 68
[2025-07-27] MEDS: predniSONE 20 MG TAB PO SCH (09:04)
[2025-07-27] MEDS: ISOSORBIDE MONONITRATE ER 60 MG TAB PO SCH (09:05)
--- NOTE | 2025-07-27 10:09 | DVHDS2 ---
Discharge Summary Date of Admission Jul 14, 2025 at 19:25 Date of Discharge: Jul 27, 2025 Labs/Diagnostic Data: Laboratory Results Test 07/27/25 05:07 07/23/25 11:53 07/21/25 04:54 07/20/25 04:58 Sodium Level 137 mmol/L (136-145) Potassium Level 4.4 mmol/L (3.5-5.1) Chloride Level 92 mmol/L (98-107) Carbon Dioxide Level 29 mmol/L (20-31) Anion Gap 16 (5-15) Blood Urea Nitrogen 68 mg/dL (9-23) Creatinine 6.10 mg/dL (0.700-1.30) Glomerular Filtration Rate Calc 9 mL/min (>90) BUN/Creatinine Ratio 11.1 (10.0-20.0) Serum Glucose 123 mg/dL (74-106) Calcium Level 7.6 mg/dL (8.7-10.4) POC Glucose 162 mg/dl (70-106) White Blood Count 8.5 10^3/uL (4.4-10.8) Red Blood Count 3.69 10^6/uL (4.5-5.90) Hemoglobin 10.0 g/dL (13.5-17.5) Hematocrit 30.0 % (41.0-53.0) Mean Corpuscular Volume 81.2 fL (80.0-100.0) Mean Corpuscular Hemoglobin 27.0 pg (28.0-32.0) Mean Corpuscular Hemoglobin Concent 33.2 g/dL (32.0-36.0) Red Cell Distribution Width 17.1 % (11.8-14.3) Platelet Count 280 10^3/uL (140-450) Mean Platelet Volume 8.0 fL (6.9-10.8) Neutrophils (%) (Auto) 87.2 % (37.0-80.0) Lymphocytes (%) (Auto) 5.7 % (10.0-50.0) Monocytes (%) (Auto) 4.1 % (0.0-12.0) Eosinophils (%) (Auto) 2.6 % (0.0-7.0) Basophils (%) (Auto) 0.4 % (0.0-2.0) Neutrophils # (Auto) 7.4 10 ^3/uL (1.6-8.6) Lymphocytes # (Auto) 0.5 10 ^3/uL (0.4-5.4) Monocytes # (Auto) 0.3 10 ^3/uL (0-1.3) Eosinophils # (Auto) 0.2 10 ^3/uL (0-0.8) Basophils # (Auto) 0 10 ^3/uL (0-0.2) Nucleated Red Blood Cells 0.0 % Magnesium Level 2.1 mg/dL (1.6-2.6) Test 07/15/25 04:37 07/14/25 17:16 07/14/25 13:47 Phosphorus Level 8.7 mg/dL (2.4-5.1) Iron Level 82 ug/dL (65-175) Total Iron Binding Capacity 223 ug/dL (250-425) Percent Iron Saturation 36.8 % (20-55) Ferritin 214.8 ng/mL (22-322) Hepatitis A IgM Antibody Negative Hepatitis B Surface Antigen Negative (Negative) Hepatitis B Core IgM Antibody Negative (Negative) Hepatitis C Antibody Positive (Negative) Troponin I High Sensitivity 168 ng/L (</=54) Total Bilirubin < 0.2 mg/dL (0.2-1.0) Aspartate Amino Transferase (AST) 18 U/L (13-40) Alanine Aminotransferase (ALT) 14 U/L (7-40) Alkaline Phosphatase 76 U/L (46-116) B-Type Natriuretic Peptide 4992.20 pg/mL (0-100) Total Protein 6.1 g/dL (5.7-8.2) Albumin 3.5 g/dL (3.2-4.8) Other Laboratory Tests 07/27/25 05:07 07/21/25 04:54 Brief Hx & Hospital Course: 70-year-old male who was admitted due to acute respiratory failure due to pulmonary edema due to fluid overload and missing dialysis He was dialyzed here again He was stabilized in his shortness of breaths improved He had some cardiac arrhythmias consistent of PVCs He has diastolic heart failure During his hospitalization his blood pressure was elevated and therefore losartan was added to his regimen. He was taken hydralazine and nifedipine at home. He developed severe angioedema of his tongue and cheek and therefore he was treated aggressively with racemic epinephrine and IV steroids and Benadryl and Pepcid IV His symptoms improved significantly gradually He is still on steroids at this time Right now he is asymptomatic except for chief complaint of generalized weakness Physical therapy saw him and recommended SNF rehab for physical therapy however he later said he does not want to go SNF We will therefore DC him home Final diagnoses: Acute pulmonary edema due to fluid overload End-stage renal disease on hemodialysis Noncompliance with dialysis Hypertension CAD CVA COPD Diastolic heart failure, acute on chronic, preserved ejection fraction Chronic anemia of chronic kidney disease Hyperkalemia Angioedema most likely due to losartan or clonidine for hydralazine MEDS: Coreg 25 mg bid Minoxidil 5 mg bid Nifedipine ER 90 mg qd Imdur 30 mg qd Medrol dose pack [place] prn Condition at Discharge: Stable Final Diagnosis/Problems List Acute pulmonary edema due to fluid overload End-stage renal disease on hemodialysis Noncompliance with dialysis Hypertension CAD CVA COPD Diastolic heart failure, acute on chronic, preserved ejection fraction Chronic anemia of chronic kidney disease Hyperkalemia Discharge Disposition: Home SNF Discharge Will this Physician continue t: No Discharge Instruct/Medications Diet: Consistent carbohydrate, Cardiac 2g Na,low cholest, Renal Activity: No Restrictions, As Tolerated Follow Up/Referral: Dialysis as scheduled Medications: See the medication reconciliation sheet Scheduled Atorvastatin Calcium (Atorvastatin Calcium), 40 MG PO DAILY Carvedilol (Coreg), 1 TAB PO BID Furosemide (Furosemide), 1 TAB PO DAILY, (Reported) Isosorbide Mononitrate (Isosorbide Mononitrate Er), 1 TAB PO DAILY Methylprednisolone (Medrol Dosepak), 4 MG PO UD Minoxidil (Loniten), 2 TAB PO BID Nifedipine (Nifedipine Er), 1 TAB PO DAILY, (Reported) Nifedipine (Nifedipine Er), 1 TAB PO DAILY Sertraline Hcl (Sertraline Hcl), 1 TAB PO QAM, (Reported) Sevelamer Carbonate (Renvela), 2 TAB PO TIDWM, (Reported) Tamsulosin Hcl (Tamsulosin Hcl), 1 CAP PO DAILY, (Reported) Tamsulosin Hcl (Flomax), 0.4 MG PO QPM Scheduled PRN Alprazolam (Alprazolam), 1 TAB PO DAILYPRN PRN for ANXIETY, (Reported) Hydrocodone-Acetaminophen (Hydrocodone Bitartrate/AC 10-325 mg), 1 TAB PO Q6HP PRN Discontinued Medications Clonidine Hydrochloride (Clonidine Hydrochloride), 1 TAB PO Q8HR PRN for BP GREATER THAN 180, (Reported) Hydralazine Hcl (Hydralazine Hcl), 1 TAB PO Q8HR, (Reported) Discharge Statement: "Patient was advised to return to the ER or call 911 if any headaches, dizziness, shortness of breath, chest pain, abdominal pain, bleeding, fevers, or worsening of medical condition. Patient was counseled about treatment plan, medications, possible side effects, patientverbalized understanding. All questions were answered to the best of my ability. This discharge took greater then 30 minutes in planning, reviewing documentation, counseling the patient, and discussing with other team members." ASSESSMENT ASSESSMENT Assessment Acute pulmonary edema due to fluid overload End-stage renal disease on hemodialysis Noncompliance with dialysis Hypertension CAD CVA COPD Diastolic heart failure, acute on chronic, preserved ejection fraction Chronic anemia of chronic kidney disease Hyperkalemia Date of Service: Jul 27, 2025 Billing Provider: KILO MAHER MD Common Visit Codes: NOT BILLABLE KILO MAHER MD Jul 27, 2025 10:09
[2025-07-27] MEDS ORDERED: TAMS-35 PO ×2 (12:23)
[2025-07-27] MEDS ORDERED: NIFE90TA75 PO ×2 (12:23)
[2025-07-27] MEDS ORDERED: METH4PAK PO ×2 (12:23)
[2025-07-27] MEDS ORDERED: ISOS1TAB28 PO ×2 (12:23)
[2025-07-27] MEDS ORDERED: MIN25T PO ×2 (12:23)
[2025-07-27] MEDS ORDERED: HYDR-4798 PO ×2 (12:23)
[2025-07-27] MEDS ORDERED: CARV-217 PO ×2 (12:23)
[2025-07-27 12:38] VITALS: BP 122/60; PULSE 68; RESP 18; TEMP 97.2; O2SAT 96
--- NOTE | 2025-07-27 13:51 | DVHPN2 ---
Progress Note Date Seen: Jul 27, 2025 Resident Creating Document: GEORGI CRUM RESIDENT Medical Necessity Reason Pt with a Central, PICC or Fol: No Subjective Review of Systems Patient was seen and examined on the bedside. He is alert, oriented x3. mentioned feeling better and no other active complaint. Other Systems: Patient seen and examined by myself today on rounds with the medicine resident, I agree with her assessment and plan Objective vital signs Vital Sign Date Time Temp Pulse Resp B/P (MAP) Pulse Ox O2 Delivery O2 Flow Rate FiO2 07/27/25 12:38 97.2 68 18 122/60 (80) 96 97.2 07/27/25 07:45 Room Air* 0 21 Total Intake and Output 07/26/25 07/26/25 07/27/25 15:00 23:00 07:00 Intake Total 1500 ml 320 ml Balance 1500 ml 320 ml medications Current Medications Medications Dose Ordered Sig/Miguel Route Start Time Stop Time Status Last Admin Dose Admin Aspirin 162 mg DAILY PO 07/15/25 10:00 07/27/25 09:04 162 MG Tamsulosin HCl 0.4 mg QPM PO 07/15/25 18:00 07/26/25 17:17 0.4 MG Ondansetron HCl 4 mg Q4HP PRN IV 07/14/25 19:30 07/23/25 02:55 4 MG Acetaminophen 650 mg Q6HP PRN PO 07/14/25 19:30 Nitroglycerin 0.4 mg Q5MINP PRN SL 07/14/25 19:30 Nifedipine 60 mg DAILY PO 07/15/25 10:00 UNV Epoetin [place]-epbx 10,000 unit TUTHSA@2100 [place] 07/15/25 21:00 07/24/25 21:17 10,000 UNIT Sevelamer HCl 1,600 mg TIDWM PO 07/15/25 18:15 07/27/25 11:36 1,600 MG Acetaminophen/ Hydrocodone Bitart 1 tab Q6HPRN PRN PO 07/20/25 11:00 07/27/25 06:50 1 TAB Diphenhydramine HCl 25 mg Q4HP PRN IV 07/21/25 09:45 07/27/25 01:17 25 MG Morphine Sulfate 2 mg Q30M PRN IV 07/23/25 08:45 07/24/25 00:22 2 MG Famotidine 10 mg DAILY IV 07/24/25 10:00 07/27/25 09:04 10 MG Minoxidil 5 mg Q12HR PO 07/25/25 12:00 07/27/25 09:06 5 MG Acetaminophen/ Hydrocodone Bitart 1 tab Q8HP PRN PO 07/25/25 13:30 07/27/25 11:37 1 TAB Prednisone 20 mg DAILY PO 07/27/25 10:00 07/27/25 09:04 20 MG Carvedilol 25 mg Q12HR PO 07/26/25 22:00 07/27/25 09:06 25 MG Isosorbide Mononitrate 30 mg DAILY PO 07/27/25 10:00 07/27/25 09:05 30 MG Magnesium Oxide 400 mg EOD PO 07/28/25 10:00 Nifedipine 90 mg DAILY PO 07/27/25 10:00 07/27/25 09:05 90 MG Examination Physical examination: General Appearance: Alert, Oriented X3, Cooperative, No acute distress HEENT: Atraumatic, PERRLA, EOMI, Mucous membrane moist/pink Respiratory: bilateral vesicular breath sounds Cardiovascular: Regular rate, Normal S1, Normal S2, No murmurs, no chest wall tenderness Abdominal: Normal bowel sounds, Soft, No tenderness, No hepatospenomegaly, No masses Extremities: Av fistula in left upper arm, No clubbing, No cyanosis, No edema, Normal pulses, No tenderness/swelling Skin: No rashes, No breakdown, No significant lesion Neuro: Normal speech, Strength at 5/5 X4 ext, Normal tone, Sensation intact, Cranial nerves 3-12 NL, Reflexes 2+ Psych/Mental Status: Mental status NL, Mood NL laboratory and microbiology Laboratory Tests 07/27/25 05:07 07/21/25 04:54 Test 07/27/25 05:07 Range/Units Serum Glucose 123 H 74-106 mg/dL Microbiology Date/Time Source Procedure Growth Status 07/15/25 00:30 Nose MRSA Screen - Final Methicillin Resistant S.aureus Complete Labs and/or images reviewed: Labs reviewed by me, Image(s) reviewed by me Problem List/Assessment/Plan Problem List/Assessment/Plan In rounds with the medicine resident Assessment and plan: # ESRD on hemodialysis # Hypertensive emergency # Hyperphosphatemia # Acute chest pain rule out ACS # Possible NSTEMI type 2 due to above # Acute on chronic diastolic heart failure # Anemia of chronic disease Plan: - Hemodialysis yesterday - Sevelamer 1600 mg PO TID - continue nifedipine ER 90 mg daily and carvedilol 25 mg bid - Other management as per primary - Avoid nephrotoxic medication - strict I&O Plan discussed with Dr. Crain Plan discussed with: Patient, Other My Orders My Orders Orders - GEORGI CRUM Procedure Category Date Status Time Nifedipine Er PHA 07/27/25 In Process (Procardia Xl 10:00 Dietary Evaluation Review Comments: 1) Continue renal cardiac diet 2) Encourage optimal PO intake 3) Follow-up with cardiology, pulmonology, and nephrology 4) Continue to monitor I&O, labs, and skin integrity Expected Outcomes/Goals: 1) appetite and labs to improve 2) f/u in 3-5 days GEORGI CRUM Jul 27, 2025 13:51 RAKESH CRAIN MD Jul 28, 2025 17:08
[2025-07-28] MEDS ORDERED: MAGNESIUM OXIDE 400 MG TAB PO SCH (10:00)
--- NOTE | 2025-07-28 11:07 | ECG ---
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
== END 2025-07-27 14:40 | disposition home or self-care (01) | DRG 291 ==
LOC: ER 13:15 → OVERFLOW 19:25 → TELE-EAST 23:55
PROVIDERS: ADMIT Internal Medicine Geriatric Medicine; ATTEND Internal Medicine Geriatric Medicine
PROC: 5A1D70Z Performance of Urinary Filtration, Intermittent, Less than 6 Hours Per Day (ICD-10-PCS; principal; 2025-07-15)
PROC: 5A1D70Z Performance of Urinary Filtration, Intermittent, Less than 6 Hours Per Day (ICD-10-PCS; 2025-07-16)
PROC: 5A1D70Z Performance of Urinary Filtration, Intermittent, Less than 6 Hours Per Day (ICD-10-PCS; 2025-07-19)
PROC: 5A1D70Z Performance of Urinary Filtration, Intermittent, Less than 6 Hours Per Day (ICD-10-PCS; 2025-07-21)
PROC: 5A1D70Z Performance of Urinary Filtration, Intermittent, Less than 6 Hours Per Day (ICD-10-PCS; 2025-07-23)
PROC: 5A1D70Z Performance of Urinary Filtration, Intermittent, Less than 6 Hours Per Day (ICD-10-PCS; 2025-07-24)
PROC: 5A1D70Z Performance of Urinary Filtration, Intermittent, Less than 6 Hours Per Day (ICD-10-PCS; 2025-07-26)
DX: I13.2 Hypertensive heart and chronic kidney disease with heart failure and with stage 5 chronic kidney disease, or end stage renal disease (principal); I50.33 Acute on chronic diastolic (congestive) heart failure; N18.6 End stage renal disease; J96.00 Acute respiratory failure, unspecified whether with hypoxia or hypercapnia; I16.1 Hypertensive emergency; E87.70 Fluid overload, unspecified; I25.10 Atherosclerotic heart disease of native coronary artery without angina pectoris; J44.9 Chronic obstructive pulmonary disease, unspecified; E87.5 Hyperkalemia; D63.1 Anemia in chronic kidney disease; E83.39 Other disorders of phosphorus metabolism; T78.3XXA Angioneurotic edema, initial encounter; I49.3 Ventricular premature depolarization; F17.210 Nicotine dependence, cigarettes, uncomplicated; E66.9 Obesity, unspecified; Z99.2 Dependence on renal dialysis; Z86.73 Personal history of transient ischemic attack (TIA), and cerebral infarction without residual deficits; Z91.158 Patient's noncompliance with renal dialysis for other reason; Z82.49 Family history of ischemic heart disease and other diseases of the circulatory system; Z83.3 Family history of diabetes mellitus; Z79.899 Other long term (current) drug therapy; Z68.28 Body mass index [BMI] 28.0-28.9, adult; Z88.8 Allergy status to other drugs, medicaments and biological substances
CPT/HCPCS: 36415; 71045; 80048; 80053; 80074; 82728; 82962; 83540; 83550; 83735; 83880; 84100; 84484; 85025; 87081; 90935; 93005; 94640; 96374; 97110; 97116; 97163; 97530; G0378; J1642; J1815; J2405; J3490

== ENCOUNTER 2025-07-30 22:44 | Inpatient (IN) | payer OTHER, MEDICAID ==
[~2025-07-30] VITALS: Ht 170.2 cm; Wt 72.7 kg
[2025-07-30] MEDS: ACETAMINOPHEN 325 MG TAB PO ONE (00:45)
[~2025-07-30 22:44] MED LIST changes: +CARV-217 PO; -CLON0.3T46 PO; +HYDR-4798 PO; -HYDR100T10 PO; +ISOS1TAB28 PO; +METH4PAK PO; +MIN25T PO; -NIFE1TAB30 PO; -SERT-289 PO; +SERT25TA28 PO; +TAMS-35 PO
[2025-07-30 23:15] VITALS: BP 165/74; PULSE 87; RESP 16; TEMP 98.6; O2SAT 97
[2025-07-31 00:01] LABS: Nucleated Red Blood Cells % 0.0 %
[2025-07-31 00:03] LABS: Hematocrit 30.4 % (41.0-53.0); Hemoglobin 9.9 g/dL (13.5-17.5); Mean Corpuscular Hemoglobin 26.5 pg (28.0-32.0); Mean Corpuscular Volume 81.5 fL (80.0-100.0)
[2025-07-31 00:08] LABS: Chloride 101 mmol/L (98-107); Sodium 140 mmol/L (136-145)
[2025-07-31 00:09] LABS: Anion Gap 19 (5-15)
[2025-07-31 00:14] LABS: Glucose 78 mg/dL (74-106)
[2025-07-31 00:15] LABS: BUN/Creatinine Ratio 8.4 (10.0-20.0)
[2025-07-31 00:17] LABS: Blood Urea Nitrogen 74 mg/dL (9-23); Calcium 8.4 mg/dL (8.7-10.4); Carbon Dioxide 20 mmol/L (20-31)
[2025-07-31 00:19] LABS: Potassium 5.7 mmol/L (3.5-5.1)
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
[2025-07-31] MEDS ORDERED: CALCIUM GLUC 1,000mg/50ml-NS 50 ML IV SCH (03:30)
[2025-07-31] MEDS ORDERED: DEXTROSE (50%) 50ML SYRG IV ONE ×2 (03:30→10:15)
[2025-07-31] MEDS ORDERED: SODIUM BICARB 8.4% 50Meq/50ml SYR Vial IV ONE (03:30)
[2025-07-31] MEDS ORDERED: InsuLIN REG 1unit/0.01ml Soln (100units/ml) IV ONE ×2 (03:30→10:15)
--- NOTE | 2025-07-31 04:58 | DVHHP2 ---
History of Present Illness Reason for Visit: Hyperkalemia Review of Systems Allergies: Coded Allergies: Clonidine (Verified Allergy, Severe, 07/23/25) Pts tongue becomes swollen Hydralazine (Verified Allergy, Severe, 07/24/25) Tongue swelled up Losartan (Verified Allergy, Severe, 07/24/25) Tongue swell Exam Vital Signs Vital Signs Date Time Temp Pulse Resp B/P (MAP) Pulse Ox O2 Delivery O2 Flow Rate FiO2 07/30/25 23:15 98.6 87 16 165/74 97 98.6 Labs/Xrays Labs Test 07/30/25 23:41 Range/Units White Blood Count 15.3 H 4.4-10.8 10^3/uL Red Blood Count 3.73 L 4.5-5.90 10^6/uL Hemoglobin 9.9 L 13.5-17.5 g/dL Hematocrit 30.4 L 41.0-53.0 % Mean Corpuscular Volume 81.5 80.0-100.0 fL Mean Corpuscular Hemoglobin 26.5 L 28.0-32.0 pg Mean Corpuscular Hemoglobin Concent 32.5 32.0-36.0 g/dL Red Cell Distribution Width 19.0 H 11.8-14.3 % Platelet Count 291 140-450 10^3/uL Mean Platelet Volume 8.3 6.9-10.8 fL Neutrophils (%) (Auto) 83.6 H 37.0-80.0 % Lymphocytes (%) (Auto) 4.6 L 10.0-50.0 % Monocytes (%) (Auto) 6.3 0.0-12.0 % Eosinophils (%) (Auto) 3.7 0.0-7.0 % Basophils (%) (Auto) 1.8 0.0-2.0 % Neutrophils # (Auto) 12.8 H 1.6-8.6 10 ^3/uL Lymphocytes # (Auto) 0.7 0.4-5.4 10 ^3/uL Monocytes # (Auto) 1.0 0-1.3 10 ^3/uL Eosinophils # (Auto) 0.6 0-0.8 10 ^3/uL Basophils # (Auto) 0.3 H 0-0.2 10 ^3/uL Nucleated Red Blood Cells 0.0 % Sodium Level 140 136-145 mmol/L Potassium Level 5.7 *H 3.5-5.1 mmol/L Chloride Level 101 98-107 mmol/L Carbon Dioxide Level 20 20-31 mmol/L Anion Gap 19 H 5-15 Blood Urea Nitrogen 74 H 9-23 mg/dL Creatinine 8.84 #H 0.700-1.30 mg/dL Glomerular Filtration Rate Calc 6 >90 mL/min BUN/Creatinine Ratio 8.4 L 10.0-20.0 Serum Glucose 78 74-106 mg/dL Calcium Level 8.4 L 8.7-10.4 mg/dL Troponin I High Sensitivity 184 *H </=54 ng/L B-Type Natriuretic Peptide 1845.93 0-100 pg/mL SEPSIS Sepsis Screen Date sepsis recognized/suspect: Jul 30, 2025 Time Sepsis recognized/suspect: 2247 Recent Procedure: No On Antibiotic Therapy: No Respiratory Rate >20: No Heart Rate >90: No Temp<36 C (96.8 F) or >38.3 C: No SBP <90 or MAP <65 mmHG: No New Acute Mental Status Change: No Is the patient on CPAP, BIPAP,: No Physician Orders Complete Blood Count (07/31/25 04:51) Comprehensive Metabolic Panel (07/31/25 04:51) Carvedilol Tablet (Coreg Tablet) (07/31/25 10:00) Amlodipine Tablet (Norvasc Tablet) (07/31/25 05:00) Amlodipine Tablet (Norvasc Tablet) (07/31/25 10:00) *Dr. Miguelito Carlton -[place] (07/31/25 04:51) Sevelamer (Renagel) (07/31/25 08:00) B-Complex W/ C & Folic Tablet (Nephro-Vi (07/31/25 10:00) Admit (07/31/25 04:51) Allergies (07/31/25 04:51) Code Status (07/31/25 04:51) Renal Standard(2gna,3gk,Lopho) (07/31/25 Breakfast) Sodium Chloride Lock (Saline Lock Ns) (07/31/25 06:00) Oxygen Per Hour (07/31/25 04:51) Hydrocodone-Acet 5/325mg Tab ([place] 5/32 (07/31/25 05:00) Ondansetron Hcl (Zofran) (07/31/25 05:00) Docusate Sodium Capsule (Colace Capsule) (07/31/25 05:00) Fall Risk Precautions In Place QSHIFT (07/31/25 04:51) Complete Blood Count (08/01/25 04:00) Comprehensive Metabolic Panel (08/01/25 04:00) Condition: Serious (07/31/25 04:51) Acetaminophen Tablet (Tylenol Tablet) (07/31/25 05:00) Maintain Bed Rest (07/31/25 04:51) Sequential Compression Device (07/31/25 ) Nitroglycerin Sublingual (Ntrostat Subli (07/31/25 05:00) Morphine Sulfate Injection (07/31/25 05:00) Stat Ekg For Chest Pain (07/31/25 04:51) Notify Md Of Changes From Base (07/31/25 04:51) Public Area Attendant For 24 Hours (07/31/25 04:51) Emergency Dysrhythmia Protocol (07/31/25 04:51) Rhythm Strips Once Every Shift (07/31/25 04:51) Oxygen By Nasal Cannula (07/31/25 04:51) Vital Signs Date Time Temp Pulse Resp B/P (MAP) Pulse Ox O2 Delivery O2 Flow Rate FiO2 07/30/25 23:15 98.6 87 16 165/74 97 98.6 Laboratory Tests Test 07/30/25 23:41 White Blood Count 15.3 10^3/uL (4.4-10.8) H Assessment/Plan My Orders Orders - NOREEN BHATT DNP Procedure Category Date Status Time Complete Blood Count LAB 07/31/25 Transmitted 04:51 Comprehensive LAB 07/31/25 Transmitted Metabolic Panel 04:51 Carvedilol Tablet PHA 07/31/25 Verified (Coreg Tablet) 10:00 Amlodipine Tablet PHA 07/31/25 Verified (Norvasc Tablet) 05:00 Amlodipine Tablet PHA 07/31/25 Verified (Norvasc Tablet) 10:00 *[facility]. [facility] CONS 07/31/25 Transmitted -[place] 04:51 Sevelamer (Renagel) PHA 07/31/25 Verified 08:00 B-Complex W/ C & PHA 07/31/25 Verified Folic Tablet 10:00 Admit ADMIT 07/31/25 Verified 04:51 Allergies RAÚL 10/11/25 Verified 04:51 Code Status CODE 07/31/25 Verified 04:51 Renal DIET 07/31/25 Verified Standard(2gna,3gk,Lopho) Breakfast Sodium Chloride Lock PHA 07/31/25 Verified (Saline Lock Ns) 06:00 Oxygen Per Hour RT 07/31/25 Verified 04:51 Hydrocodone-Acet PHA 07/31/25 Verified 5/325mg Tab ([place] 05:00 Ondansetron Hcl [facility] 07/31/25 Verified (Zofran) 05:00 Docusate Sodium [facility] 07/31/25 Verified Capsule (Colace 05:00 Fall Risk Precautions [facility] 07/31/[address] 04:51 Complete Blood Count LAB 08/01/25 Verified 04:00 Comprehensive LAB 08/01/25 Verified Metabolic Panel 04:00 Condition: Serious [facility] 07/31/25 Verified 04:51 Acetaminophen Tablet [facility] 07/31/25 Verified (Tylenol Tablet) 05:00 Maintain Bed Rest [facility] 07/31/25 Verified 04:51 Sequential [facility] 07/31/25 Verified Compression Device Nitroglycerin [facility] 07/31/25 Verified Sublingual (Ntrostat 05:00 Morphine Sulfate [facility] 07/31/25 Verified Injection 05:00 Stat Ekg For Chest [facility] 07/31/25 Verified Pain 04:51 Notify Md Of Changes [facility] 07/31/25 Verified From Base 04:51 Public Area Attendant For [facility] 07/31/25 Verified 24 Hours 04:51 Emergency Dysrhythmia [facility] 07/31/25 Verified Protocol 04:51 Rhythm Strips Once [facility] 07/31/25 Verified Every Shift 04:51 Oxygen By Nasal RT 07/31/25 Verified Cannula 04:51 NOREEN BHATT DNP Jul 31, 2025 04:58
[2025-07-31] MEDS ORDERED: MORPHINE SULFATE INJ 2 MG/ml SYRG IV PRN (05:00)
[2025-07-31] MEDS ORDERED: ONDANSETRON HCL 4 MG/2 ML VIAL IV PRN (05:00)
[2025-07-31] MEDS ORDERED: HYDROcodone-ACET 5/325MG TAB PO PRN (05:00)
[2025-07-31] MEDS ORDERED: NITROGLYCERIN 0.4 MG SL TAB SL PRN (05:00)
[2025-07-31] MEDS ORDERED: DOCUSATE SOD 100 MG CAP PO PRN (05:00)
[2025-07-31] MEDS ORDERED: ACETAMINOPHEN 325 MG TAB PO PRN (05:00)
[2025-07-31] MEDS ORDERED: SODIUM CHLOR 0.9% PF (SALINE LOCK) 10ML VIAL/SYR IV SCH (06:00)
[2025-07-31] MEDS ORDERED: SEVELAMER 800 MG TAB PO SCH (08:00)
[2025-07-31 09:07] LABS: Hematocrit 31.3 % (41.0-53.0); Hemoglobin 9.9 g/dL (13.5-17.5); Mean Corpuscular Hemoglobin 25.7 pg (28.0-32.0); Mean Corpuscular Volume 81.3 fL (80.0-100.0); Nucleated Red Blood Cells % 0.0 %
[2025-07-31 09:25] LABS: Alanine Aminotransferase 13 U/L (7-40); Albumin 4.0 g/dL (3.2-4.8); Alkaline Phosphatase 66 U/L (46-116); Anion Gap 19 (5-15); BUN/Creatinine Ratio 9.6 (10.0-20.0); Carbon Dioxide 20 mmol/L (20-31); Chloride 99 mmol/L (98-107); Sodium 138 mmol/L (136-145); Total Protein 7.0 g/dL (5.7-8.2)
[2025-07-31 09:26] LABS: Bilirubin, Total 0.4 mg/dL (0.2-1.0)
[2025-07-31] MEDS ORDERED: CARVEDILOL 12.5 MG TAB PO SCH (10:00)
[2025-07-31] MEDS ORDERED: B-COMPLEX W/ C & FOLIC ACID(NEPHROVITE TAB) PO SCH (10:00)
[2025-07-31 10:10] LABS: Calcium 8.5 mg/dL (8.7-10.4); Glucose 71 mg/dL (74-106)
[2025-07-31 10:12] LABS: Blood Urea Nitrogen 89 mg/dL (9-23); Potassium 6.1 mmol/L (3.5-5.1)
[2025-07-31] MEDS ORDERED: SODIUM BICARB 8.4% 50Meq/50ml SYR INJ IV ONE (10:15)
[2025-07-31] MEDS ORDERED: ALBUTEROL SULF 2.5 MG/0.5ML(0.5%) NEB SOLN NEB ONE ×2 (10:15→11:15)
[2025-07-31] MEDS ORDERED: CALCIUM GLUC 1,000mg/50ml-NS 50 ML IV ONE (10:15)
[2025-07-31] MEDS ORDERED: SODIUM CHL 0.9% 1000 ML BAG XX ONE (10:30)
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
[2025-07-31] MEDS ORDERED: SODIUM ZIRCONIUM CYCL 10 GM PAK PO SCH (14:00)
[2025-07-31] MEDS ORDERED: EPOETIN ALFA-EPBX 10,000 UNIT/1ML VIAL SC ONE (21:00)
== END 2025-07-31 04:52 | disposition left against medical advice (07) | DRG 280 ==
LOC: ER 22:44 → EDBD 22:44 → EDUNIT# 22:44 → OVERFLOW 07-31 04:51
PROVIDERS: ADMIT Nurse Practitioner Family; ATTEND Nurse Practitioner Family
DX: I21.4 Non-ST elevation (NSTEMI) myocardial infarction (principal); N18.6 End stage renal disease; I13.2 Hypertensive heart and chronic kidney disease with heart failure and with stage 5 chronic kidney disease, or end stage renal disease; I50.32 Chronic diastolic (congestive) heart failure; Z99.2 Dependence on renal dialysis; D63.1 Anemia in chronic kidney disease; Z91.158 Patient's noncompliance with renal dialysis for other reason; J44.9 Chronic obstructive pulmonary disease, unspecified; E87.5 Hyperkalemia; I16.0 Hypertensive urgency; I25.10 Atherosclerotic heart disease of native coronary artery without angina pectoris; Z79.899 Other long term (current) drug therapy; Z86.73 Personal history of transient ischemic attack (TIA), and cerebral infarction without residual deficits; Z88.8 Allergy status to other drugs, medicaments and biological substances; Z82.49 Family history of ischemic heart disease and other diseases of the circulatory system; Z83.3 Family history of diabetes mellitus
CPT/HCPCS: 36415; 80048; 80053; 83880; 84484; 85025; 99291; G0378

== ENCOUNTER 2025-07-31 06:24 | Inpatient (IN) | payer OTHER, MEDICAID ==
[~2025-07-31] VITALS: Ht 33 cm; Wt 0.5 kg
[~2025-07-31 06:24] MED LIST changes: +CLON0.3T46 PO; +HYDR100T10 PO; +NIFE1TAB30 PO; +SERT-289 PO
--- NOTE | 2025-07-31 06:31 | ED.PDOC ---
HPI Comments 70-year-old male presents here with chest discomfort that has been off and on for the last 1 day. He states it is sharp comes and goes radiation to left arm. He states currently he does have chest pain. He also is a dialysis patient Saturday and missed his dialysis yesterday. He was seen overnight just a few hours ago by Dr. Maria. Plan was for admission however patient decided to leave. Per medics he was at the corner when he called 911. He wanted to go to a different hospital was but was brought back here. He is agreeable to staying in the hospital today. Denies any recent illness. Denies any recent cough cold runny nose. But does state he is short of breath. Chief Complaint: Chest Pain Time Seen by MD: 06:46 Primary Care Provider: n/a Reviewed Notes: Medications, Allergies Allergies: Coded Allergies: Clonidine (Verified Allergy, Severe, 07/23/25) Pts tongue becomes swollen Hydralazine (Verified Allergy, Severe, 07/24/25) Tongue swelled up Losartan (Verified Allergy, Severe, 07/24/25) Tongue swell Home Meds Active Scripts Isosorbide Mononitrate (Isosorbide Mononitrate Er) 30 Mg Tab, 1 TAB PO DAILY, #30 TAB 5 Refills Prov:KILO MAHER MD 07/27/25 Hydrocodone-Acetaminophen (Hydrocodone Bitartrate/AC 10-325 mg) 1 Tab Tab, 1 TAB PO Q6HP PRN, #30 TAB Prov:KILO MAHER MD 07/27/25 Minoxidil (Loniten) 2.5 Mg Tb, 2 TAB PO BID for 30 Days, #120 TAB 5 Refills Prov:KILO MAHER MD 07/27/25 Tamsulosin Hcl (Flomax) 0.4 Mg Cap, 0.4 MG PO QPM for 30 Days, #30 CAP 5 Refills Prov:KILO MAHER MD 07/27/25 Methylprednisolone (Medrol Dosepak) 4 Mg Manish, 4 MG PO UD, #21 TAB UAD Prov:KILO MAHER MD 07/27/25 Nifedipine (Nifedipine Er) 90 Mg Tab, 1 TAB PO DAILY, #30 TAB 5 Refills Prov:KILO MAHER MD 07/27/25 Carvedilol (Coreg) 25 Mg Tab, 1 TAB PO BID, #60 TAB 5 Refills Prov:KILO MAHER MD 07/27/25 Atorvastatin Calcium (ATORVASTATIN CALCIUM) 40 Mg Tab, 40 MG PO DAILY for 30 Days, #30 TAB 0 Refills Prov:RANJAN SZYMANSKI RESIDENT 11/10/24 Reported Medications Furosemide (Furosemide) 40 Mg Tab, 1 TAB PO DAILY for 90 Days, #90 07/15/25 Sertraline Hcl (Sertraline Hcl) 25 Mg Tab, 1 TAB PO QAM for 60 Days, #60 07/15/25 Nifedipine (Nifedipine Er) 90 Mg Tab, 1 TAB PO DAILY for 90 Days, #90 07/15/25 Sevelamer Carbonate (Renvela) 800 Mg Tab, 2 TAB PO TIDWM for 90 Days, #540 10/27/24 Alprazolam (Alprazolam) 1 Mg Tab, 1 TAB PO DAILYPRN PRN for ANXIETY for 30 Days, #30 10/27/24 Tamsulosin Hcl (Tamsulosin Hcl) 0.4 Mg Cap, 1 CAP PO DAILY 01/14/24 Discontinued Reported Medications Clonidine Hydrochloride (Clonidine Hydrochloride) 0.3 Mg Tab, 1 TAB PO Q8HR PRN for BP GREATER THAN 180 for 90 Days, #270 11/06/24 Hydralazine Hcl (Hydralazine Hcl) 100 Mg Tab, 1 TAB PO Q8HR for BP GREATER THAN 140/80 for 30 Days, #30 01/14/24 Information Source: Patient, Emergency Med Personnel Mode of Arrival: EMS Severity: Moderate Timing: Days Duration: Since onset Location: Substernal Radiation: Arm (L) Quality: Sharp Onset: At Rest, With Light Exertion, With Heavy Exertion History of: IN Modifying Factors: Other (Worsening upon palpation ) Associated Signs and Symptoms: N/V, Other (Chest Pain, L Arm Pain, Swelling and Redness to Bilateral Ankles, L Sided Weakness ) Past Medical History PAST MEDICAL HISTORY: CHF, COPD, CVA, ESRD, HTN, IN Surgical History: Hernia Repair Family History Family History: Reviewed,noncontributory to illness Social History Smoker: Non-Smoker Alcohol: Denies ETOH Use Drugs: Methamphetamine Lives In: Home Constitutional: reports: weakness (L sided ); denies: chills, diaphoresis, fatigue, fever, malaise, sweats, others EENTM: denies: blurred vision, double vision, ear bleeding, ear discharge, ear drainage, ear pain, ear ringing, eye pain, eye redness, hearing loss, mouth pain, mouth swelling, nasal discharge, nose bleeding, nose congestion, nose pain, photophobia, tearing, throat pain, throat swelling, voice changes, others Respiratory: denies: cough, hemoptysis, orthopnea, SOB at rest, shortness of breath, SOB with excertion, stridor, wheezing, others Cardiovascular: reports: chest pain (Radiating to L Arm ); denies: dizzy spells, diaphoresis, Dyspnea on exertion, edema, irregular heart beat, left arm pain, lightheadedness, palpitations, PND, syncope, others Gastrointestinal: reports: nausea, vomiting; denies: abdomen distended, abdominal pain, blood streaked bowels, constipated, diarrhea, dysphagia, difficulty swallowing, hematemesis, melena, poor appetite, poor fluid intake, rectal bleeding, rectal pain, others Genitourinary: denies: burning, dysuria, flank pain, frequency, hematuria, in continence, penile discharge, penile sore, pain, testicle pain, testicle swelling, urgency, others Neurological: denies: dizziness, fainting, headache, left sided numbness, left sided weakness, numbness, paresthesia, pre-existing deficit, right sided numbness, right sided weakness, seizure, speech problems, tingling, tremors, weakness, others Musculoskeletal: denies: back pain, gout, joint pain, joint swelling, muscle pain, muscle stiffness, neck pain, others Integumetry: denies: bruises, change in color, change in hair/nails, dryness, laceration, lesions, lumps, rash, wounds, others Allergic/Immunocompromised: denies: Difficulty Healing, Frequent Infections, Hives, Itching, others Hematologic/Lymphatic: denies: anemia, blood clots, easy bleeding, easy bruising, swollen glands, others Endocrine: denies: excessive hunger, excessive sweating, excessive thirst, excessive urination, flushing, intolerance to cold, intolerance to heat, unexplained weight gain, unexplained weight loss, others Psychiatric: denies: anxiety, bipolar disorder, depression, hopeless, panic disorder, schizophrenia, sleepless, suicidal, others All Other Systems: Reviewed and Negative Physical Exam General Appearance: Mild Distress, Normal HEENT: Normal ENT Inspection, Pharynx Normal, TMs Normal Neck: Full Range of Motion, Non-Tender, Normal, Normal Inspection Respiratory: Chest Non-Tender, Lungs Clear, No Accessory Muscle Use, No Respiratory Distress, Normal Breath Sounds Cardiovascular: No Edema, No JVD, No Murmur, No Gallop, Normal Peripheral Pulses, Regular Rate/Rhythm Breast Exam: Deferred Gastrointestinal: No Organomegaly, Non Tender, No Pulsatile Mass, Normal Bowel Sounds, Soft Genitalia: Deferred Pelvic: Deferred Rectal: Deferred Extremities: Normal capillary refill, Swelling, Tender, Other (2+ pitting edema to bilateral lower extremities, diffuse bright red erythema to bilateral lower extremities) Musculoskeletal : Apperance: Normal Neurologic: Alert, No Motor Deficits, Normal Affect, Normal Mood, No Sensory Deficits Cerebellar Function: Normal Reflexes: Normal Skin: Dry, Normal Color, Warm Lymphatic: No Adenopathy EKG EKG : Pulse Rate (adult): 83 [place]: Normal Cardiac Rhythm: NSR Hypertrophy: LVH Comments ST elevation V3, ST Depression V4 and V5, Lead II Lead III Was a procedure done? Was a procedure done?: No CP Differential Dx Differential Diagnosis: Angina, Anxiety / Panic Attack, Hyperventilation Differential Diagnosis: CHF, HTN Essential Differential Diagnosis: Angina, Chest Wall Pain, Myocardial Infarction X-Ray, Labs, Meds, VS Vital Signs Date Time Temp Pulse Resp B/P (MAP) Pulse Ox O2 Delivery O2 Flow Rate FiO2 07/31/25 06:36 83 07/31/25 06:30 83 Lab Test 07/31/25 07:50 07/31/25 06:42 Range/Units Troponin I High Sensitivity 182 *H 194 *H </=54 ng/L White Blood Count 14.5 H 4.4-10.8 10^3/uL Red Blood Count 3.68 L 4.5-5.90 10^6/uL Hemoglobin 9.5 L 13.5-17.5 g/dL Hematocrit 30.0 L 41.0-53.0 % Mean Corpuscular Volume 81.5 80.0-100.0 fL Mean Corpuscular Hemoglobin 25.8 L 28.0-32.0 pg Mean Corpuscular Hemoglobin Concent 31.7 L 32.0-36.0 g/dL Red Cell Distribution Width 19.6 H 11.8-14.3 % Platelet Count 308 140-450 10^3/uL Mean Platelet Volume 8.4 6.9-10.8 fL Neutrophils (%) (Auto) 85.8 H 37.0-80.0 % Lymphocytes (%) (Auto) 4.8 L 10.0-50.0 % Monocytes (%) (Auto) 6.4 0.0-12.0 % Eosinophils (%) (Auto) 2.8 0.0-7.0 % Basophils (%) (Auto) 0.2 0.0-2.0 % Neutrophils # (Auto) 12.4 H 1.6-8.6 10 ^3/uL Lymphocytes # (Auto) 0.7 0.4-5.4 10 ^3/uL Monocytes # (Auto) 0.9 0-1.3 10 ^3/uL Eosinophils # (Auto) 0.4 0-0.8 10 ^3/uL Basophils # (Auto) 0 0-0.2 10 ^3/uL Nucleated Red Blood Cells 0.0 % Sodium Level 138 136-145 mmol/L Potassium Level 6.4 *H 3.5-5.1 mmol/L Chloride Level 99 98-107 mmol/L Carbon Dioxide Level 20 20-31 mmol/L Anion Gap 19 H 5-15 Blood Urea Nitrogen 99 #*H 9-23 mg/dL Creatinine 9.24 H 0.700-1.30 mg/dL Glomerular Filtration Rate Calc 6 >90 mL/min BUN/Creatinine Ratio 10.7 10.0-20.0 Serum Glucose 67 L 74-106 mg/dL Calcium Level 8.3 L 8.7-10.4 mg/dL Total Bilirubin 0.4 0.2-1.0 mg/dL Aspartate Amino Transferase (AST) 27 13-40 U/L Alanine Aminotransferase (ALT) 15 7-40 U/L Alkaline Phosphatase 65 46-116 U/L B-Type Natriuretic Peptide 1858.83 0-100 pg/mL Total Protein 6.3 5.7-8.2 g/dL Albumin 3.7 3.2-4.8 g/dL Current Medications Medications (Trade) Dose Ordered Sig/Miguel Route Start Time Stop Time Status Last Admin Albuterol (Ventolin Medneb) 20 mg ONCE ONCE NEB 07/31/25 08:00 07/31/25 08:01 DC 07/31/25 08:[address] [address] Ph: [phone] DIAGNOSTIC IMAGING Diagnostic Imaging Report : [id number] Signed PATIENT: MELISSA MATHEWS RAYACCT: [id number] UNIT: [id number] : 1955 LOC: ER ROOM / BED: / AGE / SEX: 70 / M ADM STATUS: REG ER SERVICE [id number] ORDERING PHYSICIAN: MARGO HEART MD PROCEDURE(s): CXR2 - CHEST TWO VIEWS ROUTINE REASON: Chest pain ORDER NUMBER(s): [id number], ACCESSION NUMBER(s): [id number] CLINICAL INFORMATION: 70 years old, Male; Chest pain. TECHNIQUE: Frontal and lateral chest radiographs were obtained. COMPARISON: XY CHEST PORTABLE on DOS: 07/14/25, XY CHEST PORTABLE on DOS: 07/05/25, XY CHEST XRAY 1 VIEW on DOS: 05/30/25 FINDINGS: Lungs: Mild atelectasis in the lung bases. No focal consolidation visualized. Cardiac: Mild cardiomegaly. Pulmonary vasculature: Prominence of the pulmonary vasculature. Mediastinum/renita: Within normal limits. Bones: Multilevel degenerative disc disease in the thoracic spine with moderate to severe disc space narrowing, endplate sclerosis, and endplate spurring. Other: No other significant finding. IMPRESSION: Cardiomegaly and mild prominence of the pulmonary vasculature suggesting a degree of pulmonary vascular congestion. 70-year-old male presents here with chest discomfort. Patient was eat overnight for hypokalemia and plan was for admission. However patient had eloped. He does report a chest discomfort at this time. Clinically also appears fluid overloaded. EKG demonstrates sinus rhythm with a rate of [address]-elevation in lead V3. Also has evidence of ST depression inverted T-waves in the lateral leads. At this time I have asked for an old EKG for comparison. CBC, CMP troponin chest x-ray has been ordered. CBC does demonstrate a leukocytosis of 14. CMP demonstrates hypokalemia with a potassium of 6.4, troponin is 194 with 2nd being 182. EKG does demonstrates some ST-elevation in V 3 however I suspect this is LVH with strain pattern given that has been not in 2 contiguous leads. Chest x-ray demonstrates cardiomegaly and mild prominence of the pulmonary vasculature suggesting a degree of pulmonary vascular congestion. Given his hyperkalemia of 6.4 I have started hyperkalemia protocol and have written for albuterol insulin glucose as well as Lasix IV. Although there was no definite pneumonia, given his leukocytosis I have started him on azithromycin and ceftriaxone. Patient has been given aspirin in the ER. At this time hospitalist team has been contacted for admission. Images Reviewed?: Images reviewed and evaluated by me Time of 1ST Reevaluation: 07:19 Reevaluation 1ST: Unchanged Patient Education/Counseling: Diagnosis, Treatment Family Education/Counseling: No Family Present SEPSIS Sepsis Screen Physician Orders Chest Two Views Routine (07/31/25 06:39) Troponin-I Hs (07/31/25 09:39) Electrocardigram (07/31/25 06:42) Electrocardigram (07/31/25 07:42) Electrocardigram (07/31/25 09:42) Vital Signs Date Time Temp Pulse Resp B/P (MAP) Pulse Ox O2 Delivery O2 Flow Rate FiO2 07/31/25 06:36 83 07/31/25 06:30 83 Laboratory Tests Test 07/31/25 06:42 White Blood Count 14.5 10^3/uL (4.4-10.8) H Medications Medications Dose Ordered Sig/Miguel Route Start Time Stop Time Status Last Admin Dose Admin Albuterol 20 mg ONCE ONCE NEB 07/31/25 08:00 07/31/25 08:01 DC 07/31/25 08:12 Departure 1 Departure Time of Disposition: 08:41 Impression: Primary Impression: CHF exacerbation Qualified Codes: I50.9 - Heart failure, unspecified Additional Impressions: Chest pain Qualified Codes: I20.89 - Other forms of angina pectoris Hyperkalemia End-stage renal disease on hemodialysis Disposition: ADMITTED INPATIENT Condition: Guarded Critical Care Note Critical Care Time?: Yes (45 min-critical care time only) Critical care comment: Time spent evaluating the patient, treating patient's acute hyperkalemia, repeat evaluations of the patient breathing and electrolyte status, speaking to hospitalist team, speaking to nursing team Stability Stability form required: No Heart Score Heart Score: Heart Score Response (Comments) Value History Moderate Suspicious [address]-Deviation 2 Age >65 2 Risk Factors >3 or Hx ASHD 2 Troponin 1-2 x's Normal limit 1 Total 8 I personally scribed for MARGO HEART MD ([email or web address]) on 07/31/25 at 06:31. Electronically submitted by Qi Cai ([employer]). I personally scribed for MARGO HEART MD ([facility]) on 07/31/25 at 06:36. Electronically submitted by Qi Cai ([employer]). I personally scribed for MARGO HEART MD ([facility]) on 07/31/25 at 06:50. Electronically submitted by Qi Cai ([employer]). I personally scribed for MARGO HEART MD (DVFENAA) on 07/31/25 at 08:02. Electronically submitted by Qi Cai ([employer]). MARGO HEART MD Jul 31, 2025 06:31
[2025-07-31] MEDS ORDERED: NITROGLYCERIN 0.4 MG SL TAB SL ONE (07:00)
[2025-07-31 07:27] LABS: Hematocrit 30.0 % (41.0-53.0); Hemoglobin 9.5 g/dL (13.5-17.5); Mean Corpuscular Hemoglobin 25.8 pg (28.0-32.0); Mean Corpuscular Volume 81.5 fL (80.0-100.0); Nucleated Red Blood Cells % 0.0 %
[2025-07-31 07:39] LABS: Alanine Aminotransferase 15 U/L (7-40); Albumin 3.7 g/dL (3.2-4.8); Alkaline Phosphatase 65 U/L (46-116); Anion Gap 19 (5-15); BUN/Creatinine Ratio 10.7 (10.0-20.0); Bilirubin, Total 0.4 mg/dL (0.2-1.0); Chloride 99 mmol/L (98-107); Sodium 138 mmol/L (136-145); Total Protein 6.3 g/dL (5.7-8.2)
[2025-07-31 07:42] LABS: Calcium 8.3 mg/dL (8.7-10.4); Carbon Dioxide 20 mmol/L (20-31); Glucose 67 mg/dL (74-106)
[2025-07-31 07:45] LABS: Blood Urea Nitrogen 99 mg/dL (9-23); Potassium 6.4 mmol/L (3.5-5.1)
--- NOTE | 2025-07-31 07:56 | DVH ---
CLINICAL INFORMATION: 70 years old, Male; Chest pain. TECHNIQUE: Frontal and lateral chest radiographs were obtained. COMPARISON: XY CHEST PORTABLE on DOS: 07/14/25, XY CHEST PORTABLE on DOS: 07/05/25, XY CHEST XRAY 1 VIE W on DOS: 05/30/25 FINDINGS: Lungs: Mild atelectasis in the lung bases. No focal consolidation visualized. Cardiac: Mild cardiomegaly. Pulmonary vasculature: Prominence of the pulmonary vasculature. Mediastinum/renita: Within normal limits. Bones: Multilevel degenerative disc disease in the thoracic spine with moderate to severe disc space narrowing, endplate sclerosis, and endplate spurring. Other: No other significant finding. IMPRESSION: Cardiomegaly and mild prominence of the pulmonary vasculature suggesting a degree of pulmonary vascul ar congestion.
[2025-07-31] MEDS ORDERED: DEXTROSE (50%) 50ML SYRG IV ONE (08:00)
[2025-07-31] MEDS ORDERED: SODIUM BICARB 8.4% 50Meq/50ml SYR INJ IV ONE (08:00)
[2025-07-31] MEDS ORDERED: FUROSEMIDE 40 MG/4 ML VIAL IV ONE (08:00)
[2025-07-31] MEDS ORDERED: InsuLIN REG 1unit/0.01ml Soln (100units/ml) IV ONE ×2 (08:00→11:00)
[2025-07-31] MEDS: ALBUTEROL SULF 2.5 MG/0.5ML(0.5%) NEB SOLN NEB ONE (08:12)
[2025-07-31] MEDS: ALBUTEROL SULF 2.5 MG/0.5ML(0.5%) NEB SOLN ONE (08:13)
[2025-07-31] MEDS ORDERED: ONDANSETRON HCL 4 MG/2 ML VIAL IV ONE (08:45)
[2025-07-31] MEDS ORDERED: SODIUM ZIRCONIUM CYCL 10 GM PAK PO ONE (08:45)
[2025-07-31] MEDS ORDERED: HYDROmorphone HCL 2 MG/ML VL/or syr IV ONE (08:45)
[2025-07-31] MEDS ORDERED: AZITHROMYCIN 500MG/ 250ML 250 ML IV ONE (08:45)
[2025-07-31 10:30] VITALS: BP 158/66; PULSE 85; PULSE 86; RESP 20; O2SAT 92
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
[2025-07-31] MEDS ORDERED: ACETAMINOPHEN 325 MG TAB PO PRN (11:00)
[2025-07-31] MEDS ORDERED: CALCIUM GLUC 1,000mg/50ml-NS 50 ML IV ONE (11:00)
[2025-07-31] MEDS ORDERED: MORPHINE SULFATE 4 MG/ML SYR/VIAL IV PRN (11:00)
[2025-07-31] MEDS ORDERED: MORPHINE SULFATE INJ 2 MG/ml SYRG IV PRN (11:00)
[2025-07-31] MEDS ORDERED: NITROGLYCERIN 0.4 MG SL TAB SL PRN ×2 (11:00)
[2025-07-31] MEDS ORDERED: ONDANSETRON HCL 4 MG/2 ML VIAL IV PRN (11:00)
--- NOTE | 2025-07-31 11:32 | ECG ---
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
[2025-07-31] MEDS ORDERED: ATORVASTATIN 20 MG TAB PO SCH (22:00)
--- NOTE | 2025-08-05 07:05 | ECG ---
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
== END 2025-07-31 11:33 | disposition left against medical advice (07) | DRG 640 ==
LOC: ER 06:24 → EDBD 06:24 → OVERFLOW 10:49
DX: E87.5 Hyperkalemia (principal); N18.6 End stage renal disease; I13.2 Hypertensive heart and chronic kidney disease with heart failure and with stage 5 chronic kidney disease, or end stage renal disease; D64.9 Anemia, unspecified; Z53.29 Procedure and treatment not carried out because of patient's decision for other reasons; D72.829 Elevated white blood cell count, unspecified; I50.9 Heart failure, unspecified; F12.90 Cannabis use, unspecified, uncomplicated; I25.2 Old myocardial infarction; Z79.899 Other long term (current) drug therapy; Z88.0 Allergy status to penicillin; Z88.8 Allergy status to other drugs, medicaments and biological substances; Z86.73 Personal history of transient ischemic attack (TIA), and cerebral infarction without residual deficits; Z87.891 Personal history of nicotine dependence; Z99.2 Dependence on renal dialysis; Z87.01 Personal history of pneumonia (recurrent); Z99.81 Dependence on supplemental oxygen
CPT/HCPCS: 36415; 71046; 80053; 83880; 84439; 84443; 84484; 85025; 93005; 99291; G0378; J1815

== ENCOUNTER 2025-08-24 16:40 | Emergency (ER) | payer OTHER, MEDICAID ==
[~2025-08-24] VITALS: Ht 170.2 cm; Wt 72.7 kg
[~2025-08-24 16:40] MED LIST changes: -CLON0.3T46 PO; -HYDR100T10 PO; -NIFE1TAB30 PO; -SERT-289 PO
[2025-08-24 16:57] VITALS: BP 171/66; PULSE 80; RESP 16; TEMP 98.8; O2SAT 95
--- NOTE | 2025-08-24 16:58 | ED.PDOC ---
HPI Comments HPI: 70 y/o M, HAIM, presents to the ED for CC of chest pain. EMS reports, patient is coming from PCP's office where he c/o left-sided chest pain. Patient describes pain to be "pressure" like and non-radiating in nature. Patient was given Aspirin and Nitroglycerin prior to arrival with no relief of symptoms. Patient endorses having additional symptoms of shortness of breath; oxygen saturation is at 99% on R.A. Patient denies palpitations, fever, chills, numbness, or tinging. Initial Vitals BP: HR: R O2 Sat: Temp: Past Medical history: ESRD on dialysis, CHF, COPD, CVA, HTN, MO Past Surgical history: HERNIA REPAIR Medications: Social History: Denies smoking, ETOH, and drug use. Allergies: NKDA HPI: Poor Historian. REVIEW OF SYSTEMS: CONSTITUTIONAL: Denies acute: fever, diaphoresis, chills, HEAD: Denies acute: headache, photophobia Eyes: Denies acute: Double vision, vision loss, eye pain, eye discharge. EARS: Denies acute: tinnitus, hearing loss, ear discharge, ear pain, THROAT: Denies acute: sore throat, swelling, difficulty swallowing , pain with swallowing, change in voice. NECK: Denies acute: neck pain, neck swelling, stiff neck. HEART: Denies acute : palpitations, LUNGS: Denies acute: wheezing, cough, hemoptysis ABDOMEN: Denies acute: abdominal pain, Nausea, Vomiting, diarrhea, melena , hematemesis, hematochezia SKIN: Denies acute: rash, redness, lesions, itchiness. EXTREMITIES: Denies acute: calf pain, numbness, tingling, weakness, denies pain in extremity. Denies acute: Low back pain. Neuro: Denies acute: focal neurological deficit, motor or sensory focal neurological deficit, tremors, seizure like activity, confusion, dizziness, change in mental status, loss of bowel or bladder function, cauda equina like symptoms. : Denies acute: dysuria, hematuria, flank pain, increase in urinary frequency. PSYCH: Denies acute: hallucination, suicidal ideation, homicidal ideation. v PHYSICAL EXAM: General: -----mild to moderate---acute distress, awake and alert. Head: normocephalic, atraumatic. No raccoon's eyes, no begum sign. Neck: supple, trachea is midline, no swelling. Throat: Normal phonation. Eyes:, no erythema, no purulent discharge, no proptosis, no icterus. Heart: regular rate, regular rhythm, no significant murmur appreciated. Lungs: no apparent respiratory distress, Able to speak in full sentences. No wheezing, no rhonchi, no crackles. No stridors Clear to auscultation bilaterally. Abdomen: non tender to palpation, non distended, soft, no guarding, no rebound, + bowel sounds. History of abdominal hernia Neuro: Awake, Alert, oriented to name, self, situation, follows commands GCS=15. Speech is normal. Skin: no petechia, no purpura, no cyanosis, non-pale, not jaundice. Lower extremities: --1/4 b/l - Pitting edema no deformity, no focal swelling, no calf TTP. Makes eye contact. moves all four extremities. Face: no apparent facial droop. ED COURSE: DISCLAIMER: This medical document was created using an electronic medical record system with voice recognition software and computerized dictation system. Although this document has been carefully reviewed, there might still be some phonetic and typographical errors. Occasional wrong-word or "sound-alike" substitutions may have occurred due to the inherent limitations of voice recognition software. These areas are purely typographical due to imperfections of the software programs and do not reflect any compromise in the patient's medical care. Please read the chart carefully and recognize, using context, where these substitutions have occurred. Chief Complaint: Chest Pain Time Seen by MD: 16:50 Primary Care Provider: n/a Reviewed Notes: Nurses Notes, Creative Services Designer Notes, Medications, Allergies Allergies: Coded Allergies: Clonidine (Verified Allergy, Severe, 07/23/25) Pts tongue becomes swollen Hydralazine (Verified Allergy, Severe, 07/24/25) Tongue swelled up Losartan (Verified Allergy, Severe, 07/24/25) Tongue swell Home Meds Active Scripts Isosorbide Mononitrate (Isosorbide Mononitrate Er) 30 Mg Tab, 1 TAB PO DAILY, #30 TAB 5 Refills Prov:MIDOU,KILO MD 07/27/25 Hydrocodone-Acetaminophen (Hydrocodone Bitartrate/AC 10-325 mg) 1 Tab Tab, 1 TAB PO Q6HP PRN, #30 TAB Prov:KILO MAHER MD 07/27/25 Minoxidil (Loniten) 2.5 Mg Tb, 2 TAB PO BID for 30 Days, #120 TAB 5 Refills Prov:KILO MAHER MD 07/27/25 Tamsulosin Hcl (Flomax) 0.4 Mg Cap, 0.4 MG PO QPM for 30 Days, #30 CAP 5 Refills Prov:KILO MAHER MD 07/27/25 Methylprednisolone (Medrol Dosepak) 4 Mg Manish, 4 MG PO UD, #21 TAB UAD Prov:KILO MAHER MD 07/27/25 Nifedipine (Nifedipine Er) 90 Mg Tab, 1 TAB PO DAILY, #30 TAB 5 Refills Prov:KILO MAHER MD 07/27/25 Carvedilol (Coreg) 25 Mg Tab, 1 TAB PO BID, #60 TAB 5 Refills Prov:KILO MAHER MD 07/27/25 Atorvastatin Calcium (ATORVASTATIN CALCIUM) 40 Mg Tab, 40 MG PO DAILY for 30 Days, #30 TAB 0 Refills Prov:RANJAN SZYMANSKI RESIDENT 11/10/24 Reported Medications Furosemide (Furosemide) 40 Mg Tab, 1 TAB PO DAILY for 90 Days, #90 07/15/25 Sertraline Hcl (Sertraline Hcl) 25 Mg Tab, 1 TAB PO QAM for 60 Days, #60 07/15/25 Nifedipine (Nifedipine Er) 90 Mg Tab, 1 TAB PO DAILY for 90 Days, #90 07/15/25 Sevelamer Carbonate (Renvela) 800 Mg Tab, 2 TAB PO TIDWM for 90 Days, #540 10/27/24 Alprazolam (Alprazolam) 1 Mg Tab, 1 TAB PO DAILYPRN PRN for ANXIETY for 30 Days, #30 10/27/24 Tamsulosin Hcl (Tamsulosin Hcl) 0.4 Mg Cap, 1 CAP PO DAILY 01/14/24 Information Source: Patient, Emergency Med Personnel Mode of Arrival: EMS Severity: Moderate Timing: Minutes Duration: Since onset Prehospital treatment: None Location: Chest (L) Radiation: No Radiation Quality: Pressure Onset: At Rest Cardiac Risk Factors: HTN PE Risk Factors: None History of: MO Modifying Factors: Nothing Associated Signs and Symptoms: SOB EKG EKG : Pulse Rate (adult): 82 [place]: Normal Cardiac Rhythm: NSR Block: None Hypertrophy: None ST: Normal Comments t-wave inversion in lead 5 and 6, Was a procedure done? Was a procedure done?: No CP Differential Dx Differential Diagnosis: N/A Differential Diagnosis: Other (Ddx include but not limitied to gastritis, musculoskeletal pain, radiculopathy, atypical chest pain, dissection, aneurysm, ACS, unstable angina, hiatal hernia, GERD, anxiety, costochondritis, PE, pneumothroax, neoplasm, cardiac ischemia, drug abuse, anemia.) X-Ray, Labs, Meds, VS Vital Signs Date Time Temp Pulse Resp B/P (MAP) Pulse Ox O2 Delivery O2 Flow Rate FiO2 08/24/25 18:42 171/66 08/24/25 17:47 81 08/24/25 16:57 80 16 95 Nasal Cannula* 2 28 08/24/25 16:57 98.8 60 18 171/66 (101) 96 98.8 08/24/25 16:57 82 08/24/25 16:47 82 08/24/25 16:40 98.3 81 22 182/84 97 98.3 Lab Test 08/24/25 18:09 08/24/25 17:05 Range/Units Troponin I High Sensitivity 153 *H 153 *H </=54 ng/L White Blood Count 7.7 4.4-10.8 10^3/uL Red Blood Count 3.09 L 4.5-5.90 10^6/uL Hemoglobin 8.4 L 13.5-17.5 g/dL Hematocrit 25.2 L 41.0-53.0 % Mean Corpuscular Volume 81.5 80.0-100.0 fL Mean Corpuscular Hemoglobin 27.0 L 28.0-32.0 pg Mean Corpuscular Hemoglobin Concent 33.1 32.0-36.0 g/dL Red Cell Distribution Width 20.1 H 11.8-14.3 % Platelet Count 321 140-450 10^3/uL Mean Platelet Volume 7.7 6.9-10.8 fL Neutrophils (%) (Auto) 72.5 37.0-80.0 % Lymphocytes (%) (Auto) 12.0 10.0-50.0 % Monocytes (%) (Auto) 10.7 0.0-12.0 % Eosinophils (%) (Auto) 3.9 0.0-7.0 % Basophils (%) (Auto) 0.9 0.0-2.0 % Neutrophils # (Auto) 5.6 1.6-8.6 10 ^3/uL Lymphocytes # (Auto) 0.9 0.4-5.4 10 ^3/uL Monocytes # (Auto) 0.8 0-1.3 10 ^3/uL Eosinophils # (Auto) 0.3 0-0.8 10 ^3/uL Basophils # (Auto) 0.1 0-0.2 10 ^3/uL Nucleated Red Blood Cells 0.1 % Sodium Level 142 136-145 mmol/L Potassium Level 4.8 3.5-5.1 mmol/L Chloride Level 104 98-107 mmol/L Carbon Dioxide Level 26 20-31 mmol/L Anion Gap 12 5-15 Blood Urea Nitrogen 46 H 9-23 mg/dL Creatinine 6.04 H 0.700-1.30 mg/dL Glomerular Filtration Rate Calc 9 >90 mL/min BUN/Creatinine Ratio 7.6 L 10.0-20.0 Serum Glucose 93 74-106 mg/dL Lactic Acid Level 0.9 0.4-2.0 mmol/L Calcium Level 8.6 L 8.7-10.4 mg/dL Magnesium Level 2.1 1.6-2.6 mg/dL Total Bilirubin < 0.2 L 0.2-1.0 mg/dL Aspartate Amino Transferase (AST) 21 13-40 U/L Alanine Aminotransferase (ALT) 15 7-40 U/L Alkaline Phosphatase 94 46-116 U/L B-Type Natriuretic Peptide > 5000.00 0-100 pg/mL Total Protein 6.7 5.7-8.2 g/dL Albumin 3.7 3.2-4.8 g/dL [facility] [id number] [place] [id number] Ph: [phone] DIAGNOSTIC IMAGING Diagnostic Imaging Report : [id number] Signed PATIENT: MELISSA MATHEWSACCT: [id number] UNIT: [id number] : 1955 LOC: ER ROOM / BED: / AGE / SEX: 70 / M ADM STATUS: REG ER SERVICE 49 ORDERING PHYSICIAN: JOHN PAUL MALDONADO DO PROCEDURE(s): CXRP - CHEST PORTABLE REASON: cp/sob ORDER NUMBER(s): [id number], ACCESSION NUMBER(s): [id number] CHEST RADIOGRAPH Indication: cp/sob Technique: Single frontal view of the chest was obtained COMPARISON: XY CHEST TWO VIEWS ROUTINE on DOS: 07/31/25, XY CHEST PORTABLE on DOS: 07/14/25, XY KUB ABDOMEN SINGLE VIEW on DOS: 07/08/25, XY CHEST PORTABLE on DOS: 07/05/25, XY CHEST XRAY 1 VIEW on DOS: 05/30/25 FINDINGS: Lines and Tubes: None Lungs: Clear Pleura: No effusion. No pneumothorax. There is moderate vascular congestion Cardiomediastinal contours: Cardiomegaly Bones: Unremarkable IMPRESSION: Cardiomegaly with moderate vascular congestion. ATED BY: LYNDA SUAREZ MD DICTATED DATE/TIME: 08/24/251729 SIGNED BY: LYNDA SUAREZ MD SIGNED DATE/TIME: 08/24/251729 CC: Time of 1ST Reevaluation: 17:20 Reevaluation 1ST: Unchanged Time of 2ND Reevaluation: 00:00 (I was informed that the patient eloped.) Patient Education/Counseling: Diagnosis, Treatment Family Education/Counseling: Other Comments Patient was placed up for admission for further evaluation and treatment I was informed that the patient eloped MDM: patient presented with the above HPI.---cardiac---workup was initiated. p atient was found with the above mentioned diagnosis. the following medications were ordered: please refer to order lists of meds and tests obtained by myself Dr. Maldonado. Escalation of care considered: Consideration of escalation to observation or admission Patient was ADMITTED to the medicine team for further evaluation and treatment of their presentation. However I was informed that the patient eloped All the reports of any imaging studies that were ordered by myself were reviewed by myself. SEPSIS Sepsis Screen Physician Orders Bead Builder (08/24/25 ) Chest Portable (08/24/25 16:50) Vital Signs Date Time Temp Pulse Resp B/P (MAP) Pulse Ox O2 Delivery O2 Flow Rate FiO2 08/24/25 18:42 171/66 08/24/25 17:47 81 08/24/25 16:57 80 16 95 Nasal Cannula* 2 28 08/24/25 16:57 98.8 60 18 171/66 (101) 96 98.8 08/24/25 16:57 82 08/24/25 16:47 82 08/24/25 16:40 98.3 81 22 182/84 97 98.3 Laboratory Tests Test 08/24/25 17:05 Lactic Acid Level 0.9 mmol/L (0.4-2.0) White Blood Count 7.7 10^3/uL (4.4-10.8) Departure 1 Departure Time of Disposition: 18:27 Impression: Primary Impression: Chest pain Additional Impressions: Elevated troponin Eloped from emergency department Pulmonary vascular congestion Acute exacerbation of CHF (congestive heart failure) Elevated brain natriuretic peptide (BNP) level Disposition: ADMITTED INPATIENT Admit to: Tele Condition: Guarded Additional Instructions: [place] [address] Ph: [phone] DIAGNOSTIC IMAGING Diagnostic Imaging Report : [id number] Signed PATIENT: MELISSA MATHEWS ACCT: [id number] UNIT: [id number] : 1955 LOC: ER ROOM / BED: / AGE / SEX: 70 / M ADM STATUS: REG ER SERVICE 1650 ORDERING PHYSICIAN: JOHN PAUL MALDONADO DO PROCEDURE(s): CXRP - CHEST PORTABLE REASON: cp/sob ORDER NUMBER(s): [id number], ACCESSION NUMBER(s): [id number] CHEST RADIOGRAPH Indication: cp/sob Technique: Single frontal view of the chest was obtained COMPARISON: XY CHEST TWO VIEWS ROUTINE on DOS: 07/31/25, XY CHEST PORTABLE on DOS: 07/14/25, XY KUB ABDOMEN SINGLE VIEW on DOS: 07/08/25, XY CHEST PORTABLE on DOS: 07/05/25, XY CHEST XRAY 1 VIEW on DOS: 05/30/25 FINDINGS: Lines and Tubes: None Lungs: Clear Pleura: No effusion. No pneumothorax. There is moderate vascular congestion Cardiomediastinal contours: Cardiomegaly Bones: Unremarkable IMPRESSION: Cardiomegaly with moderate vascular congestion. ATED BY: LYNDA SUAREZ MD DICTATED DATE/TIME: 08/24/251729 SIGNED BY: LYNDA SUAREZ MD SIGNED DATE/TIME: 08/24/251729 CC: Discharged With: Self Critical Care Note Critical Care Time?: Yes (45 min-critical care time only) Heart Score Heart Score: Heart Score Response (Comments) Value History Moderate Suspicious 1 EKG Normal 0 Age >65 2 Risk Factors 1 or 2 risk factors 1 Troponin 1-2 x's Normal limit 1 Total 5 I personally scribed for JOHN PAUL MALDONADO DO ([email or web address]) on 08/24/25 at 16:57. Electronically submitted by Cecy Bhat ([email or web address]). I personally scribed for JOHN PAUL MALDONADO DO ([email or web address]) on 08/24/25 at 18:41. Electronically submitted by Cecy Bhat ([email or web address]). I personally scribed for JOHN PAUL MALDONADO DO ([email or web address]) on 08/24/25 at 18:58. Electronically submitted by Cecy Bhat ([email or web address]). JOHN PAUL MALDONADO DO Aug 24, 2025 16:57
[2025-08-24 17:20] LABS: Hematocrit 25.2 % (41.0-53.0); Hemoglobin 8.4 g/dL (13.5-17.5); Mean Corpuscular Hemoglobin 27.0 pg (28.0-32.0); Mean Corpuscular Volume 81.5 fL (80.0-100.0); Nucleated Red Blood Cells % 0.1 %
[2025-08-24 17:30] LABS: Alanine Aminotransferase 15 U/L (7-40); Albumin 3.7 g/dL (3.2-4.8); Alkaline Phosphatase 94 U/L (46-116); Anion Gap 12 (5-15); BUN/Creatinine Ratio 7.6 (10.0-20.0); Carbon Dioxide 26 mmol/L (20-31); Chloride 104 mmol/L (98-107); Glucose 93 mg/dL (74-106); Magnesium 2.1 mg/dL (1.6-2.6); Potassium 4.8 mmol/L (3.5-5.1); Sodium 142 mmol/L (136-145); Total Protein 6.7 g/dL (5.7-8.2)
--- NOTE | 2025-08-24 17:32 | DVH ---
CHEST RADIOGRAPH Indication: cp/sob Technique: Single frontal view of the chest was obtained COMPARISON: XY CHEST TWO VIEWS ROUTINE on DOS: 07/31/25, XY CHEST PORTABLE on DOS: 07/14/25, XY KUB ABDOMEN SINGLE VIEW on DOS: 07/08/25, XY CHEST PORTABLE on DOS: 07/05/25, XY CHEST XRAY 1 VIEW on DOS: 05/30/25 FINDINGS: Lines and Tubes: None Lungs: Clear Pleura: No effusion. No pneumothorax. There is moderate vascular congestion Cardiomediastinal contours: Cardiomegaly Bones: Unremarkable IMPRESSION: Cardiomegaly with moderate vascular congestion.
[2025-08-24 17:47] VITALS: PULSE 81
[2025-08-24 18:00] LABS: Bilirubin, Total < 0.2 mg/dL (0.2-1.0); Blood Urea Nitrogen 46 mg/dL (9-23); Calcium 8.6 mg/dL (8.7-10.4)
[2025-08-24] MEDS: NITROGLYCERIN 0.4 MG SL TAB SL ONE (18:42)
--- NOTE | 2025-08-24 18:44 | ECG ---
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
--- NOTE | 2025-08-25 07:54 | ECG ---
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
== END 2025-08-24 18:43 | disposition left against medical advice (07) ==
LOC: ER 16:40 → EDBD 16:40 → EDUNIT# 16:40 → ER 18:43
DX: R07.89 Other chest pain (principal); R06.00 Dyspnea, unspecified; I13.2 Hypertensive heart and chronic kidney disease with heart failure and with stage 5 chronic kidney disease, or end stage renal disease; N18.6 End stage renal disease; I25.2 Old myocardial infarction; I48.91 Unspecified atrial fibrillation; J44.9 Chronic obstructive pulmonary disease, unspecified; Z79.899 Other long term (current) drug therapy; Z86.73 Personal history of transient ischemic attack (TIA), and cerebral infarction without residual deficits; Z98.890 Other specified postprocedural states; Z99.2 Dependence on renal dialysis
CPT/HCPCS: 36415; 71045; 80053; 83605; 83735; 83880; 84484; 85025; 93005

== ENCOUNTER 2025-09-11 19:54 | Inpatient (IN) | payer OTHER, MEDICAID ==
[~2025-09-11] VITALS: Ht 170.2 cm; Wt 74.4 kg
[2025-09-11] MEDS: FUROSEMIDE 100 MG/10ML VIAL IV ONE (20:15)
--- NOTE | 2025-09-11 20:22 | ED.PDOC ---
SOB-HPI HPI Comments 70-year-old male who is brought in by ambulance from private residence push a complaint of shortness for breath. Patient is a poor historian. Patient endorses 2 day history a breathing difficulty. He was found on scene with cyanotic lips and rales in bilateral lung manuel. On scene SpO2 of 81% on room air and respiratory rate in his 30s range. Patient is supposed to be on home O2. Patient denies having at home oxygen. Patient missed 2x hemodialysis session, this week (scheduled hemodialysis on Mondays, Wednesdays, and Fridays). Patient has a complaint of having diarrhea. Past medical history: ESRD - hemodialysis M/W/F, CHF, COPD Anxiety, end-stage renal disease on hemodialysis, patient has cellulitis, CHF, anemia, pulmonary edema, missed dialysis, COPD, left against medical advice numerous times. Past surgical history: Denies GARRINGER: RESPIRATORY DISTRESS PATIENT IS COVERED IN FECES PATIENT STATES HAVING DIARRHEA FOR FEW DAYS. HPI: Poor Historian. REVIEW OF SYSTEMS: CONSTITUTIONAL: Denies acute: fever, diaphoresis, chills, HEAD: Denies acute: headache, photophobia Eyes: Denies acute: Double vision, vision loss, eye pain, eye discharge. EARS: Denies acute: tinnitus, hearing loss, ear discharge, ear pain, THROAT: Denies acute: sore throat, swelling, difficulty swallowing , pain with swallowing, change in voice. NECK: Denies acute: neck pain, neck swelling, stiff neck. HEART: Denies acute : chest pain, palpitations, LUNGS: Denies acute: , wheezing, cough, hemoptysis ABDOMEN: Denies acute: abdominal pain, Nausea, Vomiting, diarrhea, melena , hematemesis, hematochezia SKIN: Denies acute: rash, redness, lesions, itchiness. EXTREMITIES: Denies acute: calf pain, numbness, tingling, weakness, denies pain in extremity. Denies acute: Low back pain. Neuro: Denies acute: focal neurological deficit, motor or sensory focal neurological deficit, tremors, seizure like activity, confusion, dizziness, change in mental status, loss of bowel or bladder function, cauda equina like symptoms. : Denies acute: dysuria, hematuria, flank pain, increase in urinary frequency. PSYCH: Denies acute: hallucination, suicidal ideation, homicidal ideation. PHYSICAL EXAM: General: ----moderate----acute distress, awake and alert. Head: normocephalic, atraumatic. No raccoon's eyes, no begum sign. Neck: supple, trachea is midline, no swelling. Throat: Normal phonation. Eyes:, no erythema, no purulent discharge, no proptosis, no icterus. Heart: regular rate, regular rhythm, no significant murmur appreciated. Lungs: Moderate apparent respiratory distress, Mild wheezing, no rhonchi, noted bilateral crackles. No stridors Abdomen: non tender to palpation, non distended, soft, no guarding, no rebound, + bowel sounds. Neuro: Awake, Alert, oriented to name, self, situation, follows commands GCS=15. Speech is normal. Skin: no petechia, no purpura, no cyanosis, non-pale, not jaundice. Lower extremities: --3/4 b/l - Pitting edema no deformity, no focal swelling, no calf TTP. Makes eye contact. moves all four extremities. Face: no apparent facial droop. ED COURSE: DISCLAIMER: This medical document was created using an electronic medical record system with voice recognition software and computerized dictation system. Although this document has been carefully reviewed, there might still be some phonetic and typographical errors. Occasional wrong-word or "sound-alike" substitutions may have occurred due to the inherent limitations of voice recognition software. The se areas are purely typographical due to imperfections of the software programs and do not reflect any compromise in the patient's medical care. Please read the chart carefully and recognize, using context, where these substitutions have occurred. Chief Complaint: Shortness of Breath Time Seen by MD: 20:15 Primary Care Provider: n/a Information Source: Patient, Emergency Med Personnel Mode of Arrival: EMS Past Medical History PAST MEDICAL HISTORY: CHF, COPD, CVA, ESRD, HTN, [place] Surgical History: Hernia Repair Family History Family History: Reviewed,noncontributory to illness Social History Smoker: Non-Smoker Alcohol: Denies ETOH Use Drugs: Methamphetamine Lives In: Home EKG EKG : Pulse Rate (adult): 87 [place]: Normal Cardiac Rhythm: NSR Block: None Hypertrophy: None Comments T-wave inversions in leads I, aVL, V5, and V6 No STEMI Was a procedure done? Was a procedure done?: No Differential Dx Differential Diagnosis: Other (DDx include ACS, unstable angina, anxiety, PE, pneumothroax, neoplasm, cardiac ischemia, COPD, asthma, CHF, pleural effusion, tobacco abuse, pneumonia, hypoxia, hypercapnia, anemia., infection/sepsis., pulmonary edema. Asthma, Cardiac tamponade, infection.) X-Ray, Labs, Meds, VS Vital Signs Date Time Temp Pulse Resp B/P (MAP) Pulse Ox O2 Delivery O2 Flow Rate FiO2 09/11/25 22:33 129 09/11/25 21:16 98.1 88 22 157/79 (105) 97 98.1 09/11/25 21:16 88 22 97 Bi-Pap+ 50 50 50 09/11/25 20:56 80 153/64 Facial BiPAP Mask 100 09/11/25 20:46 24 86 Non-Rebreather 15 N/A 09/11/25 20:22 87 09/11/25 20:15 153/82 09/11/25 20:05 98.7 81 24 154/70 94 98.7 09/11/25 19:56 81 Lab Test 09/11/25 22:08 09/11/25 21:55 09/11/25 20:40 Range/Units Blood Gas Specimen Type Arterial Arterial Blood Gas Sample Site Left radial Right radial Blood Gas Patient Temperature 37.0 37.0 Arterial Blood Date Drawn [id number] Arterial Blood pH 7.185 *L 7.187 *L 7.350-7.450 Arterial Blood Partial Pressure CO2 34.6 L 36.4 35.0-48.0 mmHg Arterial Blood Partial Pressure O2 108.8 H 102.5 83.0-108.0 mmHg Arterial Blood HCO3 12.8 L 13.5 L 21.0-28.0 mmol/L Arterial Blood Oxygen Saturation 95.7 95.0 94.0-98.0 % Arterial Blood Base Excess -14.5 L -13.8 L -2.0-3.0 mmol/L Arterial Blood Oxyhemoglobin 94.6 93.5 L 94.0-98.0 % Arterial Blood Carboxyhemoglobin 1.1 1.3 0.5-1.5 % Arterial Blood Methemoglobin 0.1 0.3 0.0-1.5 % Arterial Blood Deoxyhemoglobin 4.2 4.9 0.0-5.0 % Daniel Test Yes Yes Blood Gas Total Hemoglobin 12.50 L 12.90 L 13.5-17.5 g/dL Blood Gas Modality Mask - bipap Mask - bipap FiO2 % 50.0 50.0 Blood Gas EPAP 6 6 Blood Gas IPAP 12 12 Blood Gas Critical Value Read Back Yes Yes Blood Gas Notified Whom aminta Bustos Md, m. Blood Gas Notified Time [id number] Blood Gas Notified By Rt belgica xiong Rt belgica xiong Magnesium Level 3.3 H 1.6-2.6 mg/dL Troponin I High Sensitivity 217 *H 224 *H </=54 ng/L White Blood Count 9.2 4.4-10.8 10^3/uL Red Blood Count 4.18 L 4.5-5.90 10^6/uL Hemoglobin 12.0 L 13.5-17.5 g/dL Hematocrit 36.5 L 41.0-53.0 % Mean Corpuscular Volume 87.3 80.0-100.0 fL Mean Corpuscular Hemoglobin 28.6 28.0-32.0 pg Mean Corpuscular Hemoglobin Concent 32.8 32.0-36.0 g/dL Red Cell Distribution Width 21.6 H 11.8-14.3 % Platelet Count 193 140-450 10^3/uL Mean Platelet Volume 8.4 6.9-10.8 fL Neutrophils (%) (Auto) 93.7 H 37.0-80.0 % Lymphocytes (%) (Auto) 1.5 L 10.0-50.0 % Monocytes (%) (Auto) 3.9 0.0-12.0 % Eosinophils (%) (Auto) 0.0 0.0-7.0 % Basophils (%) (Auto) 0.9 0.0-2.0 % Neutrophils # (Auto) 8.6 1.6-8.6 10 ^3/uL Lymphocytes # (Auto) 0.1 L 0.4-5.4 10 ^3/uL Monocytes # (Auto) 0.4 0-1.3 10 ^3/uL Eosinophils # (Auto) 0 0-0.8 10 ^3/uL Basophils # (Auto) 0.1 0-0.2 10 ^3/uL Nucleated Red Blood Cells 0.1 % Sodium Level 140 136-145 mmol/L Potassium Level 4.8 3.5-5.1 mmol/L Chloride Level 98 98-107 mmol/L Carbon Dioxide Level 15 L 20-31 mmol/L Anion Gap 27 H 5-15 Blood Urea Nitrogen 141 *H 9-23 mg/dL Creatinine 11.21 *H 0.700-1.30 mg/dL Glomerular Filtration Rate Calc 4 >90 mL/min BUN/Creatinine Ratio 12.6 10.0-20.0 Serum Glucose 67 L 74-106 mg/dL Lactic Acid Level 1.7 0.4-2.0 mmol/L Calcium Level 8.5 L 8.7-10.4 mg/dL Total Bilirubin 0.5 0.2-1.0 mg/dL Aspartate Amino Transferase (AST) 44 H 13-40 U/L Alanine Aminotransferase (ALT) 30 7-40 U/L Alkaline Phosphatase 87 46-116 U/L B-Type Natriuretic Peptide > 5000.00 0-100 pg/mL Total Protein 6.0 5.7-8.2 g/dL Albumin 3.4 3.2-4.8 g/dL Current Medications Medications (Trade) Dose Ordered Sig/Miguel Route Start Time Stop Time Status Last Admin Furosemide (Lasix Injection) 60 mg ONCE ONCE IV 09/11/25 20:15 09/11/25 20:17 DC 09/11/25 20:15 Albuterol (Ventolin Medneb) 2.5 mg ONCE ONCE NEB 09/11/25 20:30 09/11/25 20:31 DC 09/11/25 20:41 Ipratropium [place] (Atrovent Medneb) 1 mg ONCE ONCE NEB 09/11/25 20:30 09/11/25 20:31 DC 09/11/25 20:41 Methylprednisolone Sodium Succinate (Solu Medrol) 125 mg ONCE ONCE IV 09/11/25 20:30 09/11/25 20:31 DC 09/11/25 20:47 Lorazepam (Ativan Inj) 0.5 mg ONCE ONCE IV 09/11/25 21:45 09/11/25 21:46 DC 09/11/25 21:55 [place] [id number] Ph: [phone] DIAGNOSTIC IMAGING Diagnostic Imaging Report : [id number] Signed PATIENT: MELISSA MATHEWS ACCT: [id number] UNIT: [id number] : 1955 LOC: ER ROOM / BED: / AGE / SEX: 70 / M ADM STATUS: REG ER SERVICE 13 ORDERING PHYSICIAN: JOHN PAUL MALDONADO DO PROCEDURE(s): CXRP - CHEST PORTABLE REASON: sob ORDER NUMBER(s): [id number], ACCESSION NUMBER(s): [id number] EXAM: XY CHEST PORTABLE HISTORY: sob TECHNIQUE: 1 view of the chest COMPARISON: XY CHEST PORTABLE on DOS: 08/24/25 FINDINGS/IMPRESSION: LUNGS: Central pulmonary vascular congestion. Peripheral interstitial edema. Worsening volume overload. MEDIASTINUM: Moderate to severe cardiomegaly. BONES: No acute osseous abnormality. OTHER: None. ATED BY: JAY DUDLEY MD DICTATED DATE/TIME: 09/11/252044 SIGNED BY: JAY DUDLEY MD SIGNED DATE/TIME: 09/11/252044 CC: [place] [address] Ph: [phone] DIAGNOSTIC IMAGING Diagnostic Imaging Report : [id number] Signed PATIENT: MELISSA MATHEWS ACCT: [id number] UNIT: [id number] : 1955 LOC: OVERFLOW ROOM / BED: [address] [place] [address] AGE / SEX: 70 / M ADM STATUS: ADM IN SERVICE ORDERING PHYSICIAN: JOHN PAUL MALDONADO DO PROCEDURE(s): CXR1 - CHEST XRAY 1 VIEW REASON: s/p intubation ORDER NUMBER(s): [id number], ACCESSION NUMBER(s): [id number] CHEST RADIOGRAPH Indication: s/p intubation Technique: Single frontal view of the chest was obtained COMPARISON: XY CHEST PORTABLE on DOS: 09/11/25, XY CHEST PORTABLE on DOS: 08/24/25, XY CHEST TWO VIEWS ROUTINE on DOS: 07/31/25, XY CHEST PORTABLE on DOS: 07/14/25, XY CHEST PORTABLE on DOS: 07/05/25 FINDINGS: Lines and Tubes: Status post interval intubation with endotracheal tube tip projecting approximately 6.9 cm above the level of the robert. Lungs: Mild diffuse increased prominence of the pulmonary vasculature and patchy multifocal Bilateral lower lung zone pulmonary airspace disease. Pleura: No effusion. No pneumothorax. Cardiomediastinal contours: Cardiomegaly. Bones: Unremarkable IMPRESSION: 1. Status post interval intubation with endotracheal tube tip projecting approximately 6.9 cm above the level of the robert. 2. Mild diffuse increased prominence of the pulmonary vasculature and patchy multifocal bilateral lower lung zone pulmonary airspace disease. 3. Cardiomegaly. ATED BY: BRAD GEORGE MD DICTATED DATE/TIME: 09/12/25116 SIGNED BY: BRAD GEORGE MD SIGNED DATE/TIME: 09/12/25116 CC: Time of 1ST Reevaluation: 20:15 Reevaluation 1ST: Unchanged Time of 2ND Reevaluation: 23:27 (Spoke with Dr. Farley over the phone. He will arrange stat dialysis for the patient.) Reevaluation 2ND: Unchanged Patient Education/Counseling: Diagnosis, Treatment Family Education/Counseling: No Family Present Comments MDM: patient presented with the above HPI.----acute respiratory distress--workup was initiated. patient was found with the above mentioned diagnosis. Patient was evaluated immediately upon arrival. Patient was on a non-rebreather mask and was transitioned to BiPAP. Patient did not tolerate the BiPAP. Patient was given a small dose of Ativan but he was unable to tolerate it. Nephrology was consulted for stat dialysis given the patient's volume overload and CHF exacerbation and respiratory distress. I spoke with Dr. Farley on the phone. Patient has missed at least two sessions of dialysis. the following medications were ordered: please refer to order lists of meds and tests obtained by myself Dr. Maldonado. Patient has been reassessed in the ED and remained in a critical condition. Patient has been admitted to the hospital many times in the past and has left against medical advice or eloped. Escalation of care considered: Consideration of escalation to observation or admission Patient was given Lasix, DuoNeb treatment, Solu-Medrol. Patient has history of CHF and COPD. Patient showed some hypoglycemia, I gave a verbal order for a D50 amp to nurse Garcia. Patient was ADMITTED to the medicine team for further evaluation and treatment of their presentation. Later a decision was made to intubate the patient given his respiratory status and drive. Patient was intubated successfully. I was the supervising attending for the procedure. A right femoral central line was also placed by the resident under my supervision. I was informed that later the patient coded. Please see the admitting team resuscitation efforts of the patient and remainder of course. All the reports of any imaging studies that were ordered by myself were reviewed by myself. SEPSIS Sepsis Screen Date sepsis recognized/suspect: Sep 11, 2025 Time Sepsis recognized/suspect: 1999 Recent Procedure: No On Antibiotic Therapy: No Respiratory Rate >20: Yes Heart Rate >90: No Temp<36 C (96.8 F) or >38.3 C: No SBP <90 or MAP <65 mmHG: No New Acute Mental Status Change: No Is the patient on CPAP, BIPAP,: No Physician Orders Manufacturing Technician (09/11/25 ) Urinalysis (09/11/25 20:14) Chest Portable (09/11/25 20:14) Electrocardigram (09/11/25 20:14) Electrocardigram (09/11/25 21:14) Electrocardigram (09/11/25 23:14) BIPAP (09/11/25 21:06) Abg W/ Co-Ox (09/11/25 21:50) Drug Screen (09/11/25 22:36) Vital Signs Date Time Temp Pulse Resp B/P (MAP) Pulse Ox O2 Delivery O2 Flow Rate FiO2 09/11/25 22:33 129 09/11/25 21:16 98.1 88 22 157/79 (105) 97 98.1 09/11/25 21:16 88 22 97 Bi-Pap+ 50 50 50 09/11/25 20:56 80 153/64 Facial BiPAP Mask 100 09/11/25 20:46 24 86 Non-Rebreather 15 N/A 09/11/25 20:22 87 09/11/25 20:15 153/82 09/11/25 20:05 98.7 81 24 154/70 94 98.7 09/11/25 19:56 81 Laboratory Tests Test 09/11/25 20:40 Lactic Acid Level 1.7 mmol/L (0.4-2.0) White Blood Count 9.2 10^3/uL (4.4-10.8) Departure 1 Departure Time of Disposition: 00:00 Impression: Primary Impression: ESRD (end stage renal disease) on dialysis Additional Impressions: Acute respiratory failure Elevated troponin Hypoglycemia Missed dialysis Noncompliance Disposition: ADMITTED INPATIENT Admit to: ICU Condition: Critical Discharged With: Self Critical Care Note Critical Care Time?: Yes (90 min-critical care time only) Critical care comment: Due to a high probability of clinically significant, life threatening deterioration, the patient required my highest level of preparedness to intervene emergently and I personally spent this critical care time directly and personally managing the patient. This critical care time included obtaining a history; examining the patient; pulse oximetry; ordering and review of studies; arranging urgent treatment with development of a management plan; evaluation of patient's response to treatment; frequent reassessment; and, discussions with other providers. This critical care time was performed to assess and manage the high probability of imminent, life-threatening deterioration that could result in multi-organ failure. It was exclusive of separately billable procedures and treating other patients and teaching time. Please see my other sections and the rest of the note for further information on patient assessment and treatment. Stability Stability form required: No Heart Score Heart Score: Heart Score Response (Comments) Value History Moderate Suspicious 1 EKG Repolarization Disturb 1 Age >65 2 Risk Factors >3 or Hx ASHD 2 Troponin >3 x's Normal limit 2 Total 8 I personally scribed for JOHN PAUL MALDONADO DO ([email or web address]) on 09/11/25 at 20:22. Electronically submitted by Jairo Ortega ([email or web address]). I personally scribed for JOHN PAUL MALDONADO DO ([email or web address]) on 09/11/25 at 23:09. Electronically submitted by Jairo Ortega ([email or web address]). I personally scribed for OJHN PAUL MALDONADO DO ([email or web address]) on 09/12/25 at 02:20. Electronically submitted by Jairo Ortega ([email or web address]). JOHN PAUL MALDONADO DO Sep 11, 2025 20:22
[2025-09-11] MEDS: ALBUTEROL SULF 2.5 MG/0.5ML(0.5%) NEB SOLN NEB ONE (20:41)
[2025-09-11] MEDS: IPRATROPIUM BROM 0.5 MG/2.5ML INH SOL NEB ONE (20:41)
[2025-09-11] MEDS ORDERED: FUROSEMIDE INJECTION 10 ML ONE (20:46)
[2025-09-11] MEDS ORDERED: methylPREDNISolone SOD SUCC 125 MG/2 ML VL ONE (20:46)
[2025-09-11] MEDS: methylPREDNISolone SOD SUCC 125 MG/2 ML VL IV ONE (20:47)
--- NOTE | 2025-09-11 20:48 | DVH ---
EXAM: XY CHEST PORTABLE HISTORY: sob TECHNIQUE: 1 view of the chest COMPARISON: XY CHEST PORTABLE on DOS: 08/24/25 FINDINGS/IMPRESSION: LUNGS: Central pulmonary vascular congestion. Peripheral interstitial edema. Worsening volume overload. MEDIASTINUM: Moderate to severe cardiomegaly. BONES: No acute osseous abnormality. OTHER: None.
[2025-09-11 20:56] LABS: Hematocrit 36.5 % (41.0-53.0); Hemoglobin 12.0 g/dL (13.5-17.5); Mean Corpuscular Hemoglobin 28.6 pg (28.0-32.0); Mean Corpuscular Volume 87.3 fL (80.0-100.0); Nucleated Red Blood Cells % 0.1 %
[2025-09-11 21:12] LABS: Alanine Aminotransferase 30 U/L (7-40); Albumin 3.4 g/dL (3.2-4.8); Alkaline Phosphatase 87 U/L (46-116); Anion Gap 27 (5-15); BUN/Creatinine Ratio 12.6 (10.0-20.0); Bilirubin, Total 0.5 mg/dL (0.2-1.0); Chloride 98 mmol/L (98-107); Potassium 4.8 mmol/L (3.5-5.1); Sodium 140 mmol/L (136-145); Total Protein 6.0 g/dL (5.7-8.2)
[2025-09-11 21:16] VITALS: PULSE 88; RESP 22; O2SAT 97
[2025-09-11 21:16] LABS: Calcium 8.5 mg/dL (8.7-10.4); Carbon Dioxide 15 mmol/L (20-31); Glucose 67 mg/dL (74-106)
[2025-09-11 21:17] LABS: Blood Urea Nitrogen 141 mg/dL (9-23)
[2025-09-11] MEDS: LORazepam 2MG/ML-1ML VIAL IV ONE (21:55)
[2025-09-11 23:00] LABS: Base Excess -14.5 mmol/L (-2.0-3.0)
[2025-09-11 23:02] LABS: Base Excess -13.8 mmol/L (-2.0-3.0)
[2025-09-11] MEDS ORDERED: HYDROcodone-ACET 5/325MG TAB PO PRN (23:45)
[2025-09-11] MEDS ORDERED: ACETAMINOPHEN 325 MG TAB PO PRN (23:45)
[2025-09-11] MEDS ORDERED: DOCUSATE SOD 100 MG CAP PO PRN (23:45)
[2025-09-11] MEDS ORDERED: NITROGLYCERIN 0.4 MG SL TAB SL PRN (23:45)
[2025-09-11] MEDS ORDERED: MORPHINE SULFATE INJ 2 MG/ml SYRG IV PRN (23:45)
[2025-09-11] MEDS ORDERED: LABETALOL HCL 20 MG/4 ML VL IV PRN (23:45)
[2025-09-11] MEDS ORDERED: ONDANSETRON HCL 4 MG/2 ML VIAL IV PRN (23:45)
--- NOTE | 2025-09-11 23:50 | DVHHP2 ---
History of Present Illness Reason for Visit: Acute respiratory failure History of Present Illness The patient is a 70-year-old male with past medical history of end-stage renal disease on hemodialysis -, CHF, COPD, CVA, [place], and hypertension presented to [facility] ED with complaint of shortness of breaths for the past 2 days. Patient reports he has been experiencing difficulty breathing, increased work of breathing, desaturating on room 81%, getting worse that prompted this visit. Patient missed dialysis session 2 times this week. Patient was seen and evaluated in the ED, laboratory data shows WBC 9.2, hemoglobin 12.0, hematocrit 36.5, platelets 193, sodium 140, potassium 4.8, BUN 141, creatinine 11.21, GFR 4, glucose 67, anion gap 27, calcium 8.7, magnesium 3.3, lactic acid 1.7, troponin 224, BNP > 5000, blood pressure 157/79, heart rate 88, temperature 98.1 F, O2 saturation 97% on BiPAP. Nephrology consult will follow the patient, please see medication orders section in the computer. On my assessment, patient denied chest pain, no headache, dizziness, diaphoresis, currently on BiPAP, no abdominal pain, diarrhea, nausea, vomiting, fever, no chills. Patient was admitted for further evaluation and medical management. Past Medical History CHF, COPD, CVA, ESRD, HTN, [place] Past Surgical History Hernia Repair Family History Reviewed, noncontributory to the management of this case. Past Social History The patient lives at home, denies smoking, alcohol or illicit drugs abuse. Review of Systems Constitutional: Yes: Weakness; No: Fever, Chills, Sweats, Malaise, Other Eyes: No: Pain, Vision change, Conjunctivae inflammation, Eyelid inflammation, Other, Redness ENT: No: Ear pain, Ear discharge, Nose pain, Nose discharge, Nose congestion, Mouth pain, Mouth swelling, Throat pain, Throat swelling, Other Respiratory: Shortness of breath, Other (SOB at rest); No: Cough, Dry, SOB with excertion, Wheezing, Hemoptysis, Pleuritic Pain, Sputum, Wheezing Cardiovascular: No: Chest Pain, Palpitations, Orthopnea, Paroxysmal Noc. Dyspnea, Edema, Lt Headedness, Other Gastrointestinal: No: Nausea, Vomiting, Abdominal Pain, Diarrhea, Constipation, Melena, Hematochezia, Other Genitourinary: No Dysuria, No Frequency, No Incontinence, No Hematuria, No Retention; Other (On hemodialysis) Musculoskeletal: No: other, neck pain, shoulder pain, arm pain, back pain, hand pain, leg pain, foot pain Skin: Bruising (Bilateral knee); No: Rash, Lesions, Jaundice, Other Neurological: Confusion; No: Weakness, Numbness, Incoordination, Change in speech, Seizures, Other Allergies: Coded Allergies: Clonidine (Verified Allergy, Severe, 07/23/25) Pts tongue becomes swollen Hydralazine (Verified Allergy, Severe, 07/24/25) Tongue swelled up Losartan (Verified Allergy, Severe, 07/24/25) Tongue swell Exam Vital Signs Vital Signs Date Time Temp Pulse Resp B/P (MAP) Pulse Ox O2 Delivery O2 Flow Rate FiO2 09/11/25 22:33 129 09/11/25 21:16 98.1 22 157/79 (105) 97 98.1 09/11/25 21:16 Bi-Pap+ 50 50 50 General Appearance: Alert, Oriented X3, Cooperative, No acute distress HEENT: Atraumatic, PERRLA, EOMI, Mucous membr. moist/pink Respiratory: Normal air movement Cardiovascular: Regular rate, Normal S1, Normal S2, No murmurs Abdominal: Normal bowel sounds, Soft, No tenderness, No hepatospenomegaly, No masses Extremities: No clubbing, No cyanosis, No edema, Normal pulses, Other (Bilateral knee tenderness) Skin: No rashes, No significant lesion Neuro: Normal speech, Normal tone, Sensation intact, Cranial nerves 3-12 NL, Reflexes 2+, Other (Generalized weakness) Psych/Mental Status: Mental status NL, Mood NL Labs/Xrays Labs Test 09/11/25 23:36 09/11/25 22:08 09/11/25 21:55 09/11/25 20:40 Range/Units Blood Gas Specimen Type Arterial Blood Gas Sample Site Left radial Blood Gas Patient Temperature 37.0 Arterial Blood Date Drawn Arterial Blood pH 7.185 *L 7.350-7.450 Arterial Blood Partial Pressure CO2 34.6 L 35.0-48.0 mmHg Arterial Blood Partial Pressure O2 108.8 H 83.0-108.0 mmHg Arterial Blood HCO3 12.8 L 21.0-28.0 mmol/L Arterial Blood Oxygen Saturation 95.7 94.0-98.0 % Arterial Blood Base Excess -14.5 L -2.0-3.0 mmol/L Arterial Blood Oxyhemoglobin 94.6 94.0-98.0 % Arterial Blood Carboxyhemoglobin 1.1 0.5-1.5 % Arterial Blood Methemoglobin 0.1 0.0-1.5 % Arterial Blood Deoxyhemoglobin 4.2 0.0-5.0 % Daniel Test Yes Blood Gas Total Hemoglobin 12.50 L 13.5-17.5 g/dL Blood Gas Modality Mask - bipap FiO2 % 50.0 Blood Gas EPAP 6 Blood Gas IPAP 12 Blood Gas Critical Value Read Back Yes Blood Gas Notified Whom aminta Bustos Blood Gas Notified Time [id number] Blood Gas Notified By Rt belgica xiong Magnesium Level 3.3 H 1.6-2.6 mg/dL White Blood Count 9.2 4.4-10.8 10^3/uL Red Blood Count 4.18 L 4.5-5.90 10^6/uL Hemoglobin 12.0 L 13.5-17.5 g/dL Hematocrit 36.5 L 41.0-53.0 % Mean Corpuscular Volume 87.3 80.0-100.0 fL Mean Corpuscular Hemoglobin 28.6 28.0-32.0 pg Mean Corpuscular Hemoglobin Concent 32.8 32.0-36.0 g/dL Red Cell Distribution Width 21.6 H 11.8-14.3 % Platelet Count 193 140-450 10^3/uL Mean Platelet Volume 8.4 6.9-10.8 fL Neutrophils (%) (Auto) 93.7 H 37.0-80.0 % Lymphocytes (%) (Auto) 1.5 L 10.0-50.0 % Monocytes (%) (Auto) 3.9 0.0-12.0 % Eosinophils (%) (Auto) 0.0 0.0-7.0 % Basophils (%) (Auto) 0.9 0.0-2.0 % Neutrophils # (Auto) 8.6 1.6-8.6 10 ^3/uL Lymphocytes # (Auto) 0.1 L 0.4-5.4 10 ^3/uL Monocytes # (Auto) 0.4 0-1.3 10 ^3/uL Eosinophils # (Auto) 0 0-0.8 10 ^3/uL Basophils # (Auto) 0.1 0-0.2 10 ^3/uL Nucleated Red Blood Cells 0.1 % Sodium Level 140 136-145 mmol/L Potassium Level 4.8 3.5-5.1 mmol/L Chloride Level 98 98-107 mmol/L Carbon Dioxide Level 15 L 20-31 mmol/L Anion Gap 27 H 5-15 Blood Urea Nitrogen 141 *H 9-23 mg/dL Creatinine 11.21 *H 0.700-1.30 mg/dL Glomerular Filtration Rate Calc 4 >90 mL/min BUN/Creatinine Ratio 12.6 10.0-20.0 Serum Glucose 67 L 74-106 mg/dL Lactic Acid Level 1.7 0.4-2.0 mmol/L Calcium Level 8.5 L 8.7-10.4 mg/dL Total Bilirubin 0.5 0.2-1.0 mg/dL Aspartate Amino Transferase (AST) 44 H 13-40 U/L Alanine Aminotransferase (ALT) 30 7-40 U/L Alkaline Phosphatase 87 46-116 U/L B-Type Natriuretic Peptide > 5000.00 0-100 pg/mL Total Protein 6.0 5.7-8.2 g/dL Albumin 3.4 3.2-4.8 g/dL PATIENT: MELISSA MATHEWST: [id number] UNIT: [id number] : 1955 LOC: ER ROOM / BED: / AGE / SEX: 70 / M ADM STATUS: REG ER SERVICE 13 ORDERING PHYSICIAN: JOHN PAUL MALDONADO DO PROCEDURE(s): CXRP - CHEST PORTABLE REASON: sob ORDER NUMBER(s): [id number], ACCESSION NUMBER(s): [id number] EXAM: XY CHEST PORTABLE HISTORY: sob TECHNIQUE: 1 view of the chest COMPARISON: XY CHEST PORTABLE on DOS: 08/24/25 FINDINGS/IMPRESSION: LUNGS: Central pulmonary vascular congestion. Peripheral interstitial edema. Worsening volume overload. MEDIASTINUM: Moderate to severe cardiomegaly. BONES: No acute osseous abnormality. OTHER: None. ORDERING PHYSICIAN: JOHN PAUL MALDONADO DO PROCEDURE(s): CXR1 - CHEST XRAY 1 VIEW REASON: s/p intubation ORDER NUMBER(s): [id number], ACCESSION NUMBER(s): [id number] CHEST RADIOGRAPH Indication: s/p intubation Technique: Single frontal view of the chest was obtained COMPARISON: XY CHEST PORTABLE on DOS: 09/11/25, XY CHEST PORTABLE on DOS: 08/24/25, XY CHEST TWO VIEWS ROUTINE on DOS: 07/31/25, XY CHEST PORTABLE on DOS: 07/14/25, XY CHEST PORTABLE on DOS: 07/05/25 FINDINGS: Lines and Tubes: Status post interval intubation with endotracheal tube tip projecting approximately 6.9 cm above the level of the robert. Lungs: Mild diffuse increased prominence of the pulmonary vasculature and patchy multifocal Bilateral lower lung zone pulmonary airspace disease. Pleura: No effusion. No pneumothorax. Cardiomediastinal contours: Cardiomegaly. Bones: Unremarkable IMPRESSION: 1. Status post interval intubation with endotracheal tube tip projecting approximately 6.9 cm above the level of the robert. 2. Mild diffuse increased prominence of the pulmonary vasculature and patchy multifocal bilateral lower lung zone pulmonary airspace disease. 3. Cardiomegaly. SEPSIS Sepsis Screen Date sepsis recognized/suspect: Sep 11, 2025 Time Sepsis recognized/suspect: 2128 Recent Procedure: No On Antibiotic Therapy: No Respiratory Rate >20: No Heart Rate >90: No Temp<36 C (96.8 F) or >38.3 C: No SBP <90 or MAP <65 mmHG: No New Acute Mental Status Change: No Is the patient on CPAP, BIPAP,: No Physician Orders Institution Librarian (09/11/25 ) Urinalysis (09/11/25 20:14) Chest Portable (09/11/25 20:14) Electrocardigram (09/11/25 20:14) Troponin-I Hs (09/11/25 23:14) Electrocardigram (09/11/25 21:14) Electrocardigram (09/11/25 23:14) BIPAP (09/11/25 21:06) Abg W/ Co-Ox (09/11/25 21:50) Drug Screen (09/11/25 22:36) Furosemide Injection (Lasix Injection) (09/12/25 10:00) Methylprednisolone Sod Succ (Solu Medrol (09/12/25 06:00) Famotidine Injection (Pepcid Injection) (09/12/25 10:00) Albuterol Medneb (Ventolin Medneb) (09/11/25 23:45) Ipratropium Medneb (Atrovent Medneb) (09/11/25 23:45) B-Complex W/ C & Folic Tablet (Nephro-Vi (09/12/25 10:00) Sevelamer (Renagel) (09/12/25 08:00) Carvedilol Tablet (Coreg Tablet) (09/12/25 10:00) *Dr. Farley [facility] (09/11/25 23:33) Labetalol Hcl (Labetalol Hcl) (09/11/25 23:45) Admit (09/11/25:) Allergies (09/11/25:) Code Status (09/11/25:) Renal Standard(2gna,3gk,Lopho) (09/12/25 Breakfast) Sodium Chloride Lock (Saline Lock Ns) (09/12/25 06:00) Oxygen Per Hour (09/11/25:33) Hydrocodone-Acet 5/325mg Tab (Sublette 5/32 (09/11/25 23:45) Ondansetron Hcl (Zofran) (09/11/25 23:45) Docusate Sodium Capsule (Colace Capsule) (09/11/25 23:45) Fall Risk Precautions In Place QSHIFT (09/11/25:33) Complete Blood Count (09/12/25 04:00) Comprehensive Metabolic Panel (09/12/25 04:00) Condition: Serious (09/11/25:33) Acetaminophen Tablet (Tylenol Tablet) (09/11/25 23:45) Maintain Bed Rest (09/11/25:33) Sequential Compression Device (09/11/25 ) Nitroglycerin Sublingual (Ntrostat Subli (09/11/25 23:45) Morphine Sulfate Injection (09/11/25 23:45) Stat Ekg For Chest Pain (09/11/25:33) Notify Md Of Changes From Base (09/11/25:33) Mobile Sales Assistant For 24 Hours (09/11/25:33) Emergency Dysrhythmia Protocol (11/22/25 23:33) Rhythm Strips Once Every Shift (09/11/25 23:33) Oxygen By Nasal Cannula (09/11/25 23:33) Vital Signs Date Time Temp Pulse Resp B/P (MAP) Pulse Ox O2 Delivery O2 Flow Rate FiO2 09/11/25 22:33 129 09/11/25 21:16 98.1 88 22 157/79 (105) 97 98.1 09/11/25 21:16 88 22 97 Bi-Pap+ 50 50 50 09/11/25 20:56 80 153/64 Facial BiPAP Mask 100 09/11/25 20:46 24 86 Non-Rebreather 15 N/A 09/11/25 20:22 87 09/11/25 20:15 153/82 09/11/25 20:05 98.7 81 24 154/70 94 98.7 09/11/25 19:56 81 Laboratory Tests Test 09/11/25 20:40 Lactic Acid Level 1.7 mmol/L (0.4-2.0) White Blood Count 9.2 10^3/uL (4.4-10.8) Medications Medications Dose Ordered Sig/Miguel Route Start Time Stop Time Status Last Admin Dose Admin Albuterol 2.5 mg ONCE ONCE NEB 09/11/25 20:30 09/11/25 20:31 DC 09/11/25 20:41 2.5 MG Furosemide 60 mg ONCE ONCE IV 09/11/25 20:15 09/11/25 20:17 DC 09/11/25 20:15 60 MG Ipratropium [place] 1 mg ONCE ONCE NEB 09/11/25 20:30 09/11/25 20:31 DC 09/11/25 20:41 1 MG Lorazepam 0.5 mg ONCE ONCE IV 09/11/25 21:45 09/11/25 21:46 DC 09/11/25 21:55 0.5 MG Methylprednisolone Sodium Succinate 125 mg ONCE ONCE IV 09/11/25 20:30 09/11/25 20:31 DC 09/11/25 20:47 125 MG Assessment/Plan Assessment/Plan Acute respiratory failure Hypoglycemia Elevated troponin Electrolyte imbalance COPD with acute exacerbation End-stage renal disease on hemodialysis Acute exacerbation of congestive heart failure Generalized weakness Acute respiratory failure with hypoxia Plan 1. Admit to intensive care unit 2. Breathing treatment 3. Pain control management 4. Management of fluids and electrolytes 5. Consultation for Nephrology 6. Diagnostic tests chest x-ray 7. DVT prophylaxis-on aspirin 8. Repeat labs CBC, CMP in a.m. 9. Continue with current medical management 10. Treatment plan discussed with patient and RN. Patient verbalized understanding. Plan discussed with: Patient, Other (RN) My Orders Orders - NOREEN BHATT DNP Procedure Category Date Status Time Furosemide Injection PHA 09/12/25 Logged (Lasix Injection) 10:00 Methylprednisolone PHA 09/12/25 Logged Sod Succ (Solu Medrol 06:00 Famotidine Injection PHA 09/12/25 Logged (Pepcid Injection) 10:00 Albuterol Medneb PHA 09/11/25 Logged (Ventolin Medneb) 23:45 Ipratropium Medneb PHA 09/11/25 Logged (Atrovent Medneb) 23:45 B-Complex W/ C & PHA 09/12/25 Logged Folic Tablet 10:00 Sevelamer (Renagel) PHA 09/12/25 Logged 08:00 Carvedilol Tablet PHA 09/12/25 Logged (Coreg Tablet) 10:00 *Dr. Farley [facility] CONS 09/11/25 Transmitted -[place] 23:33 Labetalol Hcl PHA 09/11/25 Logged (Labetalol Hcl) 23:45 Admit ADMIT 09/11/25 Transmitted 23:33 Allergies RAÚL 09/11/25 In Process 23:33 Code Status CODE 09/11/25 Transmitted 23:33 Renal DIET 09/12/25 Transmitted Standard(2gna,3gk,Lopho) Breakfast Sodium Chloride Lock PHA 09/12/25 Logged (Saline Lock Ns) 06:00 Oxygen Per Hour RT 09/11/25 Transmitted 23:33 Hydrocodone-Acet PHA 09/11/25 Logged 5/325mg Tab (Sublette 23:45 Ondansetron Hcl PHA 09/11/25 Logged (Zofran) 23:45 Docusate Sodium PHA 09/11/25 Logged Capsule (Colace 23:45 Fall Risk Precautions RAÚL 09/11/[address] 23:33 Complete Blood Count LAB 09/12/25 Verified 04:00 Comprehensive LAB 09/12/25 Verified Metabolic Panel 04:00 Condition: Serious RAÚL 09/11/25 In Process 23:33 Acetaminophen Tablet PHA 09/11/25 Logged (Tylenol Tablet) 23:45 Maintain Bed Rest [facility] 09/11/25 In Process 23:33 Sequential [facility] 09/11/25 In Process Compression Device Nitroglycerin [facility] 09/11/25 Logged Sublingual (Ntrostat 23:45 Morphine Sulfate [facility] 09/11/25 Logged Injection 23:45 Stat Ekg For Chest [facility] 09/11/25 In Process Pain 23:33 Notify Md Of Changes [facility] 09/11/25 In Process From Base 23:33 Mobile Sales Assistant For [facility] 09/11/25 In Process 24 Hours 23:33 Emergency Dysrhythmia [facility] 09/11/25 In Process Protocol 23:33 Rhythm Strips Once [facility] 09/11/25 In Process Every Shift 23:33 Oxygen By Nasal RT 09/11/25 Transmitted Cannula 23:33 Problem List: (1) Acute respiratory failure (2) Elevated troponin (3) COPD with acute exacerbation (4) Hypoglycemia (5) Electrolyte imbalance (6) Generalized weakness (7) End-stage renal disease on hemodialysis (8) Acute respiratory failure with hypoxia (9) Acute exacerbation of congestive heart failure Date of Service: Sep 11, 2025 Billing Provider: NOREEN BHATT DNP Common Visit Codes: 13633-DEOXEDC INP/OBS CARE (HIGH) NOREEN BHATT DNP Sep 11, 2025 23:50
[2025-09-11] MEDS ORDERED: ALBUTEROL SULF 2.5 MG/0.5ML(0.5%) NEB SOLN ONE (23:55)
[2025-09-11] MEDS ORDERED: IPRATROPIUM BROM 0.5 MG/2.5ML INH SOL ONE (23:55)
[2025-09-11] MEDS: IPRATROPIUM BROM 0.5 MG/2.5ML INH SOL NEB PRN (23:56)
[2025-09-11] MEDS: ALBUTEROL SULF 2.5 MG/0.5ML(0.5%) NEB SOLN NEB PRN (23:56)
[2025-09-12] VITALS (25 sets, daily range): BP systolic 86–125; BP diastolic 48–73; PULSE 65–143; RESP 16–49; TEMP 97.3–98.2; O2SAT 90–100
[2025-09-12] MEDS ORDERED: ETOMIDATE (2MG/ML) 20ML VIAL IV ONE (00:18)
[2025-09-12] MEDS ORDERED: ROCURONIUM 10MG/ML 10ML VIAL IV ONE (00:18)
[2025-09-12] MEDS: ETOMIDATE (2MG/ML) 20ML VIAL IV ONE (00:51)
[2025-09-12] MEDS: ROCURONIUM 10MG/ML 10ML VIAL IV ONE (00:51)
[2025-09-12] MEDS: MIDAZOLAM DRIP 100 mg/100mL NS 100 ML IV SCH (01:00)
--- NOTE | 2025-09-12 01:19 | DVH ---
CHEST RADIOGRAPH Indication: s/p intubation Technique: Single frontal view of the chest was obtained COMPARISON: XY CHEST PORTABLE on DOS: 09/11/25, XY CHEST PORTABLE on DOS: 08/24/25, XY CHEST TWO VIEWS ROUTINE on DOS: 07/31/25, XY CHEST PORTABLE on DOS: 07/14/25, XY CHEST PORTABLE on DOS: 07/05/25 FINDINGS: Lines and Tubes: Status post interval intubation with endotracheal tube tip projecting approximately 6.9 cm above the level of the robert. Lungs: Mild diffuse increased prominence of the pulmonary vasculature and patchy multifocal Bilateral lower lung zone pulmonary airspace disease. Pleura: No effusion. No pneumothorax. Cardiomediastinal contours: Cardiomegaly. Bones: Unremarkable IMPRESSION: 1. Status post interval intubation with endotracheal tube tip projecting approximately 6.9 cm above the level of the robert. 2. Mild diffuse increased prominence of the pulmonary vasculature and patchy multifocal bilateral lower lung zone pulmonary airspace disease. 3. Cardiomegaly.
--- NOTE | 2025-09-12 02:15 | DVHNC2 ---
Intubation Indication: Altered Mental Status Prep: Preoxygenation Pretreated with: Analgesia, Sedation Medicated with: Other (etomidate, rocuronium) Intubation Approach: Orotracheal Intubation size: cm (7.5) Notes Endotracheal Intubation Procedure Note INDICATION: PROCEDURE MUD GRINDER: [address] ATTENDING PHYSICIAN: Dr. Frazier CONSENT: Emergency consent implied PROCEDURE SUMMARY: A time out was performed. My hands were washed immediately prior to the procedure. I wore a surgical cap, mask with protective eyewear, gown and gloves throughout the procedure. The patient was placed on a cafeteria monitor including continuous pulse oximetry. Rapid Sequence Intubation was conducted. The patient received 20 mg mg of etomidate for induction and 80 mg of rocuronium for adequate paralysis. Cricoid pressure was maintained from time induction agent was given to time of cuff balloon inflation. Using a GlideScope and a size 7.5cm endotracheal tube with stylet, the patient was intubated on the first attempt. The stylet was removed and cuff balloon was inflated. Appropriate endotracheal tube position was confirmed by direct visualization of vocal cord passage, fogging of the tube, CO2 colormetric indicator and symmetric breath sounds. The tube was secured at 26 cm at the lips. Post intubation chest x-ray is pending at this time. Date of Service: Sep 12, 2025 Billing Provider: JOHN PAUL FRAZIER DO Common Visit Codes: PROCEDURE ONLY [address] Sep 12, 2025 02:15
[2025-09-12 02:26] LABS: Base Excess -16.6 mmol/L (-2.0-3.0)
[2025-09-12] MEDS: NOREPINEPHRINE 8 MG/250ML KIT 250 ML IV SCH (03:30)
[2025-09-12 04:02] LABS: Hematocrit 33.5 % (41.0-53.0); Hemoglobin 10.7 g/dL (13.5-17.5); Mean Corpuscular Hemoglobin 29.0 pg (28.0-32.0); Mean Corpuscular Volume 91.1 fL (80.0-100.0)
[2025-09-12 04:19] LABS: Alkaline Phosphatase 70 U/L (46-116); Anion Gap 23 (5-15); BUN/Creatinine Ratio 11.2 (10.0-20.0); Bilirubin, Total 0.4 mg/dL (0.2-1.0); Sodium 140 mmol/L (136-145)
[2025-09-12 04:20] LABS: Alanine Aminotransferase 64 U/L (7-40); Albumin 2.5 g/dL (3.2-4.8); Calcium 11.3 mg/dL (8.7-10.4); Carbon Dioxide 20 mmol/L (20-31); Chloride 97 mmol/L (98-107); Glucose 253 mg/dL (74-106); Magnesium 3.6 mg/dL (1.6-2.6); Total Protein 4.7 g/dL (5.7-8.2)
[2025-09-12 04:22] LABS: Blood Urea Nitrogen 135 mg/dL (9-23); Potassium 7.2 mmol/L (3.5-5.1)
[2025-09-12 05:38] LABS: Total Cells Counted 100.0 (100)
[2025-09-12 05:39] LABS: Macrocytosis Moderate; Polychromasia Slight
[2025-09-12] MEDS ORDERED: PHENYLEPHRINE IV 250 ML IV ONE (06:35)
[2025-09-12] MEDS: PHENYLEPHRINE IV 250 ML IV SCH (06:44)
[2025-09-12] MEDS: SODIUM CHLOR 0.9% PF (SALINE LOCK) 10ML VIAL/SYR IV SCH (06:44)
[2025-09-12] MEDS: methylPREDNISolone SOD SUCC 40 MG/ML VL IV SCH (06:49)
[2025-09-12] MEDS ORDERED: methylPREDNISolone SOD SUCC 40 MG/ML VL ONE (06:50)
[2025-09-12 07:22] LABS: Base Excess -18.8 mmol/L (-2.0-3.0)
[2025-09-12] MEDS: InsuLIN REG 1unit/0.01ml Soln (100units/ml) IV ONE (07:30)
--- NOTE | 2025-09-12 07:40 | DVHNC2 ---
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) Indication: Hypotension Room prepared for procedure: Yes Logistics Engineering Manager performed hand hygien: Yes Maximal sterile barrier precau: Mask/Eye shield, Sterile gown, Sterlie gloves, Large sterlie drape Skin Preparation: Chlorhexidine gluconate Insertion site: Right, Femoral Central line catheter type: [id number] dialysis Number of lumens: 3 Antiseptic ointment applied to: Yes Post Assessment: Proper placement Informed consent obtained: Yes Date of Service: Sep 12, 2025 Billing Provider: JOHN PAUL MALDONADO DO Common Visit Codes: PROCEDURE ONLY ALEX GARCIA RESIDENT Sep 12, 2025 07:40
[2025-09-12] MEDS ORDERED: ALBUTEROL SULF 2.5 MG/0.5ML(0.5%) NEB SOLN ONE (07:41)
[2025-09-12] MEDS ORDERED: InsuLIN REG 1unit/0.01ml Soln (100units/ml) ONE ×2 (07:48→10:55)
[2025-09-12] MEDS ORDERED: DEXTROSE 50% SYRINGE 50 ML IV ONE ×3 (07:48→10:55)
[2025-09-12] MEDS ORDERED: FAMOTIDINE (10MG/ML) 2ML VL IV ONE (07:49)
[2025-09-12] MEDS ORDERED: SODIUM BICARB 8.4% 50Meq/50ml SYR INJ ONE ×2 (07:49→10:55)
[2025-09-12] MEDS: ALBUTEROL SULF 2.5 MG/0.5ML(0.5%) NEB SOLN NEB ONE (07:50)
[2025-09-12] MEDS: DEXTROSE (50%) 50ML SYRG IV ONE (07:57)
[2025-09-12] MEDS: SEVELAMER 800 MG TAB PO SCH (08:00)
[2025-09-12] MEDS: FAMOTIDINE (10MG/ML) 2ML VL IV SCH (08:14)
[2025-09-12] MEDS: SODIUM BICARB 8.4% 50Meq/50ml SYR INJ IV ONE (08:15)
[2025-09-12] MEDS ORDERED: NOREPINEPHRINE 8 MG/250ML KIT 250 ML IV ONE (08:55)
[2025-09-12] MEDS: CARVEDILOL 12.5 MG TAB PO SCH (08:55)
[2025-09-12] MEDS: SERTRALINE HCL 50 MG TAB PO SCH (08:56)
[2025-09-12] MEDS: B-COMPLEX W/ C & FOLIC ACID(NEPHROVITE TAB) PO SCH (08:56)
--- NOTE | 2025-09-12 09:07 | RESUS ---
MARA BLUE ASSESSSMENT History of Events History of Events: Pt admitted on 09/11/25 to [facility] for acute respiratory distress. Pt was assessed and it was determined pt required intubated; pt was intubated and upgraded to ICU. While placing a central line for hypotension, pt went into pulseless VTACH. CPR initiated and mara lovell called. Initial Information Date: Sep 12, 2025 Time: 03:31 Location of Arrest: ER Arrest Witnessed: Yes CPR started initial time: 03:31 CPR started by whom: Hospital Staff Pre-Hospital Care: Pre-Code Care (inpatient) Type of arrest: Cardiac, Witnessed Spontaneous Respirations: No Pulse Present: No Monitoring: ECG, Pulse Oximetry, Telemetry Crash Cart Opened and Supplies: Yes Airway Ventilation Breathing at Onset: Assisted Oxygen Delivery Method: Mechanical Ventilator Artificial Ventilation: Bag/Endo tube Intubation Time: 00:36 Intubation Size: 7.5 cuffed Intubated by: Seamus Resident Intubation Attempts: 1 Intubated orally: Yes Intubated Nasaly: No Tube secured at: 26 (cm @ lip) Comments: Pt was intubated prior to code Circulation Circulation #1: Time: 03:31 Pulse Rate (adult): 0 Blood Pressure Systolic: 0 Blood Pressure Diastolic: 0 Temperature (Fahrenheit): 97.9 (F; rectal) Circulation Comment: Pulseless VTACH Circulation #2: Time: 03:33 Pulse Rate (adult): 0 Blood Pressure Systolic: 0 Blood Pressure Diastolic: 0 Circulation Comment: Asystole Circulation #3: Time: 03:35 Pulse Rate (adult): 0 Blood Pressure Systolic: 0 Blood Pressure Diastolic: 0 Circulation Comment: Asystole Circulation #4: Time: 03:37 Pulse Rate (adult): 0 Blood Pressure Systolic: 0 Blood Pressure Diastolic: 0 Circulation Comment: Asystole Circulation #5: Time: 03:39 Pulse Rate (adult): 0 Blood Pressure Systolic: 0 Blood Pressure Diastolic: 0 Circulation Comment: PEA Circulation #6: Time: 03:41 Pulse Rate (adult): 0 Blood Pressure Systolic: 0 Blood Pressure Diastolic: 0 Circulation Comment: VFib Circulation #7: Time: 03:43 Pulse Rate (adult): 0 Blood Pressure Systolic: 0 Blood Pressure Diastolic: 0 Circulation Comment: PEA Circulation #8: Time: 03:45 Pulse Rate (adult): 0 Blood Pressure Systolic: 0 Blood Pressure Diastolic: 0 Circulation Comment: PEA Circulation #9: Time: 03:47 Pulse Rate (adult): 166 Blood Pressure Systolic: 190 Blood Pressure Diastolic: 80 Circulation Comment: ROSC Defibrillation Defbrillation : Time Defibrillator Applied: 03:41 EKG Rhythm: V-Fibrillation Compressions: Manual Time Defibrillator Shocked Pt.: 03:41 Defib. Joules: 120 Pulse Present: No Procedure - IV Procedure - IV : IV Side: Right IV Location: Forearm Anterior IV Catheter Type: Peripheral IV IV Placed: In Hospital IV Gauge: 20 IV Line Care: Saline Flush Comment IV placed prior to code Medications & Response Medications and Responses #1: Medication Time: 03:33 ADULT Medications Given ADULT: Epinephrine 1 mg Route of Administration: IV Heart Rate: 0 EKG Rhythm: Asystole Blood Pressure Systolic: 0 Blood Pressure Diastolic: 0 Respiratory Rate: 0 Medications and Responses #2: Medication Time: 03:37 ADULT Medications Given ADULT: Epinephrine 1 mg Route of Administration: IV Heart Rate: 0 EKG Rhythm: Asystole Blood Pressure Systolic: 0 Blood Pressure Diastolic: 0 Respiratory Rate: 0 EKG Rhythm: Asystole Medications and Responses #3: Medication Time: 03:39 ADULT Medications Given ADULT: Sodium Bacarbinate 50 meq Route of Administration: IV Heart Rate: 0 EKG Rhythm: PEA Blood Pressure Systolic: 0 Blood Pressure Diastolic: 0 Respiratory Rate: 0 Medications and Responses #4: Medication Time: 03:41 ADULT Medications Given ADULT: Epinephrine 1 mg Medication Comment: Given after defibrillation per MD Frazier Heart Rate: 0 EKG Rhythm: V-Fibrillation Blood Pressure Systolic: 0 Blood Pressure Diastolic: 0 Respiratory Rate: 0 Medications and Responses #5: Medication Time: 03:43 ADULT Medications Given ADULT: D50 (amp) Route of Administration: IV Medication Comment: FSBS 60 Heart Rate: 0 EKG Rhythm: Asystole Blood Pressure Systolic: 0 Blood Pressure Diastolic: 0 Respiratory Rate: 0 Medications and Responses #6: Medication Time: 03:45 ADULT Medications Given ADULT: Epinephrine 1 mg Route of Administration: IV Heart Rate: 0 EKG Rhythm: PEA Blood Pressure Systolic: 0 Blood Pressure Diastolic: 0 Respiratory Rate: 0 Medications and Responses #7: Medication Time: 03:46 ADULT Medications Given ADULT: Sodium Bacarbinate 50 meq Route of Administration: IV Heart Rate: 0 EKG Rhythm: PEA Blood Pressure Systolic: 0 Blood Pressure Diastolic: 0 Respiratory Rate: 0 Procedure - Central Venous Cat Central venous catheter time: 03:31 Central venous catheter site: Rt Femoral Central Venous Catheter Insert: Seamus Resident Procedure - Gu Catheter Urinary Catheter Type/Location: Uretheral (Gu) Urine Color: Straw, Light Pari Comment: Gu placed prior to code Nurses Notes [place] Coma Scale Eye Opening: None (1) Ela Coma Scale Verbal: None (1) Ela Coma Scale Motor: None (1) Glascow Total: 3 Pupil Reaction: Non Reactive (Unequal; R 4mm, L 2mm) Bedside Blood Glucose: 60 Nurses Notes - Comment: Calcium chloride 10mL pushed at 0348 Time Code Ended Time Code Ended: 03:47 Post Arrest Status: Ventilated Outcome of code: Successful Code Team Present: Dr Frazier - MARISOL GUILLEN; Dr Way, Resident; YULIA Arthur - Hospitalist; Maykel Srivastava RN - ER Charge; Christiane Mi RN - Fourth Mate; Ester Guo RN - Primary RN; Elizabeth Seals, RN; Kelsy S, ERT; Paula Rocha, ERT; Maria Ines Allan, RT Post Resuscitation Neurologica Pupil Size: 2 (& R-4) ROSC Time of ROSC: 03:47 Christiane Lira Sep 12, 2025 09:07
[2025-09-12] MEDS ORDERED: FUROSEMIDE 40 MG/4 ML VIAL IV SCH (10:00)
[2025-09-12] MEDS: SODIUM BICARB 8.4% 50Meq/50ml SYR Vial IV ONE (10:45)
[2025-09-12] MEDS ORDERED: CALCIUM GLUC 1,000mg/50ml-NS 50 ML IV ONE (10:55)
[2025-09-12 11:16] LABS: Alkaline Phosphatase 92 U/L (46-116); Anion Gap 33 (5-15); Bilirubin, Total 0.6 mg/dL (0.2-1.0); Glucose 86 mg/dL (74-106); Sodium 141 mmol/L (136-145)
[2025-09-12 11:24] LABS: BUN/Creatinine Ratio 11.8 (10.0-20.0)
[2025-09-12 11:25] LABS: Carbon Dioxide 14 mmol/L (20-31); Chloride 94 mmol/L (98-107)
[2025-09-12 11:26] LABS: Alanine Aminotransferase 152 U/L (7-40); Albumin 2.6 g/dL (3.2-4.8); Calcium 8.6 mg/dL (8.7-10.4); Total Protein 4.9 g/dL (5.7-8.2)
[2025-09-12 11:27] LABS: Blood Urea Nitrogen 143 mg/dL (9-23); Potassium 7.8 mmol/L (3.5-5.1)
--- NOTE | 2025-09-12 11:28 | DVHDS2 ---
Discharge Summary Date of Admission Sep 11, 2025 at 23:33 Date of Discharge: Sep 12, 2025 Labs/Diagnostic Data: Laboratory Results Test 09/12/25 10:40 09/12/25 07:08 09/12/25 03:53 09/11/25 23:36 Blood Gas Specimen Type Arterial Blood Gas Sample Site Left radial Blood Gas Patient Temperature 37.0 Arterial Blood Date Drawn [id number] Arterial Blood pH 7.009 (7.350-7.450) Arterial Blood Partial Pressure CO2 48.9 mmHg (35.0-48.0) Arterial Blood Partial Pressure O2 103.9 mmHg (83.0-108.0) Arterial Blood HCO3 12.0 mmol/L (21.0-28.0) Arterial Blood Oxygen Saturation 93.7 % (94.0-98.0) Arterial Blood Base Excess -18.8 mmol/L (-2.0-3.0) Arterial Blood Oxyhemoglobin 92.7 % (94.0-98.0) Arterial Blood Carboxyhemoglobin 0.9 % (0.5-1.5) Arterial Blood Methemoglobin 0.2 % (0.0-1.5) Arterial Blood Deoxyhemoglobin 6.2 % (0.0-5.0) Daniel Test Modified Blood Gas Total Hemoglobin 12.60 g/dL (13.5-17.5) Blood Gas Set Respiration Rate 22.0 Blood Gas Modality Vent - ac FiO2 % 100.0 Blood Gas Tidal Volume 500.0 Blood Gas PEEP or CPAP 5.0 Blood Gas Critical Value Read Back yes Blood Gas Notified Whom noni tran Blood Gas Notified Time [id number] Blood Gas Notified By instrumentation instructor kalie White Blood Count 4.4 10^3/uL (4.4-10.8) Red Blood Count 3.68 10^6/uL (4.5-5.90) Hemoglobin 10.7 g/dL (13.5-17.5) Hematocrit 33.5 % (41.0-53.0) Mean Corpuscular Volume 91.1 fL (80.0-100.0) Mean Corpuscular Hemoglobin 29.0 pg (28.0-32.0) Mean Corpuscular Hemoglobin Concent 31.8 g/dL (32.0-36.0) Red Cell Distribution Width 21.9 % (11.8-14.3) Platelet Count 178 10^3/uL (140-450) Mean Platelet Volume 9.3 fL (6.9-10.8) Neutrophils (%) (Auto) % (37.0-80.0) Lymphocytes (%) (Auto) % (10.0-50.0) Monocytes (%) (Auto) % (0.0-12.0) Basophils (%) (Auto) % (0.0-2.0) Neutrophils # (Auto) 10 ^3/uL (1.6-8.6) Lymphocytes # (Auto) 10 ^3/uL (0.4-5.4) Monocytes # (Auto) 10 ^3/uL (0-1.3) Differential Total Cells Counted 100.0 (100) Neutrophils % (Manual) 32.0 (37.0-80.0) Band Neutrophils % (Manual) 21.0 Lymphocytes % (Manual) 42.0 (10.0-50.0) Monocytes % (Manual) 3.0 (0-12) Eosinophils % (Manual) 0 (0-7) Basophils % (Manual) 0 (0.0-2.0) Metamyelocytes % (manual) 0 Myelocytes % (Manual) 2.0 Promyelocytes % (Manual) 0 Blast Cells % (Manual) 0 Reactive Lymphocytes 0 Platelet Estimate Adequate Polychromasia Slight Macrocytosis Moderate Phosphorus Level 17.2 mg/dL (2.4-5.1) Magnesium Level 3.6 mg/dL (1.6-2.6) Troponin I High Sensitivity 201 ng/L (</=54) Test 09/11/25 22:08 09/11/25 20:40 Blood Gas EPAP 6 Blood Gas IPAP 12 Eosinophils (%) (Auto) 0.0 % (0.0-7.0) Eosinophils # (Auto) 0 10 ^3/uL (0-0.8) Basophils # (Auto) 0.1 10 ^3/uL (0-0.2) Nucleated Red Blood Cells 0.1 % Lactic Acid Level 1.7 mmol/L (0.4-2.0) B-Type Natriuretic Peptide > 5000.00 pg/mL (0-100) Other Laboratory Tests 09/12/25 03:53 Brief Hx & Hospital Course: Final diagnoses: Acute hypoxic respiratory failure Status post cardiopulmonary arrest and resuscitation End-stage renal disease on hemodialysis Hyperkalemia Severe metabolic and respiratory acidosis COPD Chronic respiratory failure Old CVA Congestive heart failure Hypertension The patient was a 70-year-old male with a history of end-stage renal disease on hemodialysis and hypertension and COPD with the multiple admissions to the hospital, 2 admissions here recently for angioedema with severe swelling of the tongue, several admissions for respiratory failure and fluid overload with hyperkalemia, recent admission at [facility] last week for severe angioedema requiring intubation and apparently the patient signed AMA from [facility] few days ago and then yesterday he was complaining of shortness of breaths and therefore he presented here to the emergency room, during last night he developed V-tach and had to be resuscitated for 16 minutes and a pulse was regained and was intubated and admitted to the ICU This morning his repeat potassium level was 7.2 and therefore he was given emergency treatment for hyperkalemia, around 10:50 a.m. this morning he developed bradycardia and then asystole and therefore code blue was called in and the patient was resuscitated for a total of 20 minutes with multiple epinephrine injections and CPR and calcium gluconate and sodium bicarbonate, resuscitation was continued for more than 20 minutes with the no pulse detected despite all the efforts of resuscitation The code was terminated and the patient was pronounced at 11:12 a.m. Condition at Discharge: Poor Final Diagnosis/Problems List Acute hypoxic respiratory failure Status post cardiopulmonary arrest and resuscitation End-stage renal disease on hemodialysis Hyperkalemia Severe metabolic and respiratory acidosis Discharge Disposition: at Hospital SNF Discharge Will this Physician continue t: No Discharge Instruct/Medications Scheduled Atorvastatin Calcium (Atorvastatin Calcium), 40 MG PO DAILY Carvedilol (Coreg), 1 TAB PO BID Furosemide (Furosemide), 1 TAB PO DAILY, (Reported) Isosorbide Mononitrate (Isosorbide Mononitrate Er), 1 TAB PO DAILY Methylprednisolone (Medrol Dosepak), 4 MG PO UD Minoxidil (Loniten), 2 TAB PO BID Nifedipine (Nifedipine Er), 1 TAB PO DAILY, (Reported) Nifedipine (Nifedipine Er), 1 TAB PO DAILY Sertraline Hcl (Sertraline Hcl), 1 TAB PO QAM, (Reported) Sevelamer Carbonate (Renvela), 2 TAB PO TIDWM, (Reported) Tamsulosin Hcl (Tamsulosin Hcl), 1 CAP PO DAILY, (Reported) Tamsulosin Hcl (Flomax), 0.4 MG PO QPM Scheduled PRN Alprazolam (Alprazolam), 1 TAB PO DAILYPRN PRN for ANXIETY, (Reported) Hydrocodone-Acetaminophen (Hydrocodone Bitartrate/AC 10-325 mg), 1 TAB PO Q6HP PRN Discharge Statement: "Patient was advised to return to the ER or call 911 if any headaches, dizziness, shortness of breath, chest pain, abdominal pain, bleeding, fevers, or worsening of medical condition. Patient was counseled about treatment plan, medications, possible side effects, patientverbalized understanding. All questions were answered to the best of my ability. This discharge took greater then 30 minutes in planning, reviewing documentation, counseling the patient, and discussing with other team members." ASSESSMENT ASSESSMENT Assessment Date of Service: Sep 12, 2025 Billing Provider: KILO MAHER MD Common Visit Codes: NOT BILLABLE KILO MAHER MD Sep 12, 2025 11:28
--- NOTE | 2025-09-12 11:49 | DVHINCON2 ---
Date of service: Sep 12, 2025 Referring Physician Malcolm Arthur NP Reason for Consultation ESRD History of Present Illness Mr. Landry is a 70 yo male who presented to [facility] with report of dyspnea and diarrhea. This communications writer notified by ER attending overnight regarding clinical data and respiratory status. Per chart reivew Mr. Landry had cardiac arrest earlier this morning for 16 minutes prior to ROSC. He was noted to be hyperkalemic this morning and received medical therapy for hyperkalemia. HD RN at bedside this morning and noted AV access to be thrombosed and unable to cannulate. This communications writer had asked HD RN to request placement of temporary dialysis catheter. Mr. Landry subsequently noted to have bradycardia and recurrent cardiac arrest and despite resuscitation efforts. This write h ad walked into the ICU during time of active CODE BLUE. Allergies: Coded Allergies: Clonidine (Verified Allergy, Severe, 07/23/25) Pts tongue becomes swollen Hydralazine (Verified Allergy, Severe, 07/24/25) Tongue swelled up Losartan (Verified Allergy, Severe, 07/24/25) Tongue swell Home Meds Active Scripts Isosorbide Mononitrate (Isosorbide Mononitrate Er) 30 Mg Tab, 1 TAB PO DAILY, #30 TAB 5 Refills Prov:KILO MAHER MD 07/27/25 Hydrocodone-Acetaminophen (Hydrocodone Bitartrate/AC 10-325 mg) 1 Tab Tab, 1 TAB PO Q6HP PRN, #30 TAB Prov:KILO MAHER MD 07/27/25 Minoxidil (Loniten) 2.5 Mg Tb, 2 TAB PO BID for 30 Days, #120 TAB 5 Refills Prov:KILO MAHER MD 07/27/25 Tamsulosin Hcl (Flomax) 0.4 Mg Cap, 0.4 MG PO QPM for 30 Days, #30 CAP 5 Refills Prov:KILO MAHER MD 07/27/25 Methylprednisolone (Medrol Dosepak) 4 Mg Manish, 4 MG PO UD, #21 TAB UAD Prov:KILO MAHER MD 07/27/25 Nifedipine (Nifedipine Er) 90 Mg Tab, 1 TAB PO DAILY, #30 TAB 5 Refills Prov:KILO MAHER MD 07/27/25 Carvedilol (Coreg) 25 Mg Tab, 1 TAB PO BID, #60 TAB 5 Refills Prov:KILO MAHER MD 07/27/25 Atorvastatin Calcium (ATORVASTATIN CALCIUM) 40 Mg Tab, 40 MG PO DAILY for 30 Days, #30 TAB 0 Refills Prov:RANJAN SZYMANSKI RESIDENT 11/10/24 Reported Medications Furosemide (Furosemide) 40 Mg Tab, 1 TAB PO DAILY for 90 Days, #90 07/15/25 Sertraline Hcl (Sertraline Hcl) 25 Mg Tab, 1 TAB PO QAM for 60 Days, #60 07/15/25 Nifedipine (Nifedipine Er) 90 Mg Tab, 1 TAB PO DAILY for 90 Days, #90 07/15/25 Sevelamer Carbonate (Renvela) 800 Mg Tab, 2 TAB PO TIDWM for 90 Days, #540 10/27/24 Alprazolam (Alprazolam) 1 Mg Tab, 1 TAB PO DAILYPRN PRN for ANXIETY for 30 Days, #30 10/27/24 Tamsulosin Hcl (Tamsulosin Hcl) 0.4 Mg Cap, 1 CAP PO DAILY 01/14/24 Current Medications Current Medications Medications (Trade) Dose Ordered Sig/Miguel Route PRN Reason Start Time Stop Time Status Last Admin Furosemide (Lasix Injection) 40 mg DAILY IV 09/12/25 10:00 Methylprednisolone Sodium Succinate (Solu Medrol) 40 mg Q8HR IV 09/12/25 06:00 09/12/25 06:49 Famotidine (Pepcid Injection) 20 mg DAILY IV 09/12/25 10:00 09/12/25 08:14 Albuterol (Ventolin Medneb) 2.5 mg Q4HPRN PRN NEB SHORTNESS OF BREATH 09/11/25 23:45 09/11/25 23:56 Ipratropium [place] (Atrovent Medneb) 0.5 mg Q4HPRN PRN NEB SHORTNESS OF BREATH 09/11/25 23:45 09/11/25 23:56 Multivit/Ca Carb/ B Cmplx/FA/Prenat (Nephro-Kelly Tablet) 1 tab DAILY PO 09/12/25 10:00 Sevelamer HCl (Renagel) 800 mg TIDWM PO 09/12/25 08:00 Carvedilol (Coreg Tablet) 12.5 mg Q12HR PO 09/12/25 10:00 Labetalol HCl (Labetalol HCl) 5 mg Q2HPRN PRN IV SBP>150 09/11/25 23:45 Sodium Chloride (Saline Lock Ns) 10 ml Q8HR IV 09/12/25 06:00 09/12/25 06:44 Acetaminophen/ Hydrocodone Bitart ([place] 5/325MG Tab) 1 tab Q4HP PRN PO MODERATE PAIN (4-6 PAIN SCALE) 09/11/25 23:45 Ondansetron HCl (Zofran) 4 mg Q4HP PRN IV NAUSEA / VOMITING 09/11/25 23:45 Docusate Sodium (Colace Capsule) 100 mg BIDPRN PRN PO FOR CONSTIPATION 09/11/25 23:45 Acetaminophen (Tylenol Tablet) 650 mg Q6HP PRN PO PAIN SCALE 1-3 OR TEMP>100.4 09/11/25 23:45 Nitroglycerin (Ntrostat Sublingual) 0.4 mg Q5MINP PRN SL FOR CHEST PAIN 09/11/25 23:45 Morphine Sulfate 2 mg Q30M PRN IV FOR CHEST PAIN 09/11/25 23:45 Aspirin 81 mg DAILY PO 09/12/25 10:00 Sertraline HCl (Zoloft) 25 mg DAILY PO 09/12/25 10:00 Atorvastatin Calcium (Lipitor) 10 mg HS PO 09/12/25 22:00 Midazolam HCl 100 ml @ 1 mls/hr Q24H IV 09/12/25 01:00 09/12/25 01:00 Norepinephrine Bitartrate 250 ml @ 3.75 mls/hr Q24H IV 09/12/25 03:30 09/12/25 08:55 Phenylephrine HCl 250 ml @ 30 mls/hr Q8H20M IV 09/12/25 06:30 09/12/25 06:44 Family History: Arthritis G8 MOTHER Cardiovascular disease G8 FATHER Diabetes during Diabetes mellitus G8 MOTHER G8 FATHER H&P Exam Vital Signs/I&O Vital Sign Date Time Temp Pulse Resp B/P (MAP) Pulse Ox O2 Delivery O2 Flow Rate FiO2 09/12/25 10:16 90/48 09/12/25 10:06 100 09/12/25 09:07 0 0 Mechanical Ventilator 166 09/12/25 07:41 98 09/11/25 21:16 50 Intake and Output 09/11/25 09/12/25 19:00 07:00 Intake Total 4 ml Balance 4 ml Intake IV Total 4 ml Labs/Diagnostic Data Labs/Diagnostic Data Laboratory Tests Test 09/12/25 11:08 09/12/25 10:53 09/12/25 10:40 09/12/25 08:49 Range/Units POC Glucose 137 H 62 L 185 H 70-106 mg/dl Sodium Level 141 136-145 mmol/L Potassium Level 7.8 *H 3.5-5.1 mmol/L Chloride Level 94 L 98-107 mmol/L Carbon Dioxide Level 14 L 20-31 mmol/L Anion Gap 33 H 5-15 Blood Urea Nitrogen 143 *H 9-23 mg/dL Creatinine 12.10 *H 0.700-1.30 mg/dL Glomerular Filtration Rate Calc 4 >90 mL/min BUN/Creatinine Ratio 11.8 10.0-20.0 Serum Glucose 86 # 74-106 mg/dL Calcium Level 8.6 L 8.7-10.4 mg/dL Total Bilirubin 0.6 0.2-1.0 mg/dL Aspartate Amino Transferase (AST) 351 H 13-40 U/L Alanine Aminotransferase (ALT) 152 H 7-40 U/L Alkaline Phosphatase 92 46-116 U/L Total Protein 4.9 L 5.7-8.2 g/dL Albumin 2.6 L 3.2-4.8 g/dL Test 09/12/25 08:21 09/12/25 08:15 09/12/25 07:56 09/12/25 07:53 Range/Units POC Glucose 52 L 108 H < 10 *L 40 *L 70-106 mg/dl Test 09/12/25 07:08 09/12/25 03:53 09/12/25 02:20 09/11/25 23:36 Range/Units Blood Gas Specimen Type Arterial Arterial Blood Gas Sample Site Left radial Right radial Blood Gas Patient Temperature 37.0 37.0 Arterial Blood Date Drawn [id number] Arterial Blood pH 7.009 *L 7.012 *L 7.350-7.450 Arterial Blood Partial Pressure CO2 48.9 H 59.1 H 35.0-48.0 mmHg Arterial Blood Partial Pressure O2 103.9 97.3 83.0-108.0 mmHg Arterial Blood HCO3 12.0 L 14.6 L 21.0-28.0 mmol/L Arterial Blood Oxygen Saturation 93.7 L 92.0 L 94.0-98.0 % Arterial Blood Base Excess -18.8 L -16.6 L -2.0-3.0 mmol/L Arterial Blood Oxyhemoglobin 92.7 L 90.7 L 94.0-98.0 % Arterial Blood Carboxyhemoglobin 0.9 0.8 0.5-1.5 % Arterial Blood Methemoglobin 0.2 0.6 0.0-1.5 % Arterial Blood Deoxyhemoglobin 6.2 H 7.9 H 0.0-5.0 % Daniel Test Modified Yes Blood Gas Total Hemoglobin 12.60 L 12.60 L 13.5-17.5 g/dL Blood Gas Set Respiration Rate 22.0 16.0 Blood Gas Modality Vent - ac Vent - ac FiO2 % 100.0 100.0 Blood Gas Tidal Volume 500.0 500.0 Blood Gas PEEP or CPAP 5.0 5.0 Blood Gas Critical Value Read Back yes Yes Blood Gas Notified Whom nicole collado Md Blood Gas Notified Time [id number] Blood Gas Notified By internet security specialist kalie Rt [place] tyrese White Blood Count 4.4 # 4.4-10.8 10^3/uL Red Blood Count 3.68 L 4.5-5.90 10^6/uL Hemoglobin 10.7 L 13.5-17.5 g/dL Hematocrit 33.5 L 41.0-53.0 % Mean Corpuscular Volume 91.1 # 80.0-100.0 fL Mean Corpuscular Hemoglobin 29.0 28.0-32.0 pg Mean Corpuscular Hemoglobin Concent 31.8 L 32.0-36.0 g/dL Red Cell Distribution Width 21.9 H 11.8-14.3 % Platelet Count 178 140-450 10^3/uL Mean Platelet Volume 9.3 6.9-10.8 fL Neutrophils (%) (Auto) 37.0-80.0 % Lymphocytes (%) (Auto) 10.0-50.0 % Monocytes (%) (Auto) 0.0-12.0 % Basophils (%) (Auto) 0.0-2.0 % Neutrophils # (Auto) 1.6-8.6 10 ^3/uL Lymphocytes # (Auto) 0.4-5.4 10 ^3/uL Monocytes # (Auto) 0-1.3 10 ^3/uL Differential Total Cells Counted 100.0 100 Neutrophils % (Manual) 32.0 L 37.0-80.0 Band Neutrophils % (Manual) 21.0 Lymphocytes % (Manual) 42.0 10.0-50.0 Monocytes % (Manual) 3.0 0-12 Eosinophils % (Manual) 0 0-7 Basophils % (Manual) 0 0.0-2.0 Metamyelocytes % (manual) 0 Myelocytes % (Manual) 2.0 Promyelocytes % (Manual) 0 Blast Cells % (Manual) 0 Reactive Lymphocytes 0 Platelet Estimate Adequate Polychromasia Slight Macrocytosis Moderate Sodium Level 140 136-145 mmol/L Potassium Level 7.2 #*H 3.5-5.1 mmol/L Chloride Level 97 L 98-107 mmol/L Carbon Dioxide Level 20 20-31 mmol/L Anion Gap 23 H 5-15 Blood Urea Nitrogen 135 *H 9-23 mg/dL Creatinine 12.06 *H 0.700-1.30 mg/dL Glomerular Filtration Rate Calc 4 >90 mL/min BUN/Creatinine Ratio 11.2 10.0-20.0 Serum Glucose 253 #H 74-106 mg/dL Calcium Level 11.3 H 8.7-10.4 mg/dL Phosphorus Level 17.2 H 2.4-5.1 mg/dL Magnesium Level 3.6 H 1.6-2.6 mg/dL Total Bilirubin 0.4 0.2-1.0 mg/dL Aspartate Amino Transferase (AST) 128 H 13-40 U/L Alanine Aminotransferase (ALT) 64 H 7-40 U/L Alkaline Phosphatase 70 46-116 U/L Total Protein 4.7 L 5.7-8.2 g/dL Albumin 2.5 L 3.2-4.8 g/dL Troponin I High Sensitivity 201 *H </=54 ng/L Test 09/11/25 22:08 09/11/25 21:55 09/11/25 20:40 Range/Units Blood Gas Specimen Type Arterial Arterial Blood Gas Sample Site Left radial Right radial Blood Gas Patient Temperature 37.0 37.0 Arterial Blood Date Drawn [id number] Arterial Blood pH 7.185 *L 7.187 *L 7.350-7.450 Arterial Blood Partial Pressure CO2 34.6 L 36.4 35.0-48.0 mmHg Arterial Blood Partial Pressure O2 108.8 H 102.5 83.0-108.0 mmHg Arterial Blood HCO3 12.8 L 13.5 L 21.0-28.0 mmol/L Arterial Blood Oxygen Saturation 95.7 95.0 94.0-98.0 % Arterial Blood Base Excess -14.5 L -13.8 L -2.0-3.0 mmol/L Arterial Blood Oxyhemoglobin 94.6 93.5 L 94.0-98.0 % Arterial Blood Carboxyhemoglobin 1.1 1.3 0.5-1.5 % Arterial Blood Methemoglobin 0.1 0.3 0.0-1.5 % Arterial Blood Deoxyhemoglobin 4.2 4.9 0.0-5.0 % Daniel Test Yes Yes Blood Gas Total Hemoglobin 12.50 L 12.90 L 13.5-17.5 g/dL Blood Gas Modality Mask - bipap Mask - bipap FiO2 % 50.0 50.0 Blood Gas EPAP 6 6 Blood Gas IPAP 12 12 Blood Gas Critical Value Read Back Yes Yes Blood Gas Notified Whom aminta Bustos Md, m. Blood Gas Notified Time [id number] Blood Gas Notified By Rt belgica xiong Rt belgica xiong Magnesium Level 3.3 H 1.6-2.6 mg/dL Troponin I High Sensitivity 217 *H 224 *H </=54 ng/L White Blood Count 9.2 4.4-10.8 10^3/uL Red Blood Count 4.18 L 4.5-5.90 10^6/uL Hemoglobin 12.0 L 13.5-17.5 g/dL Hematocrit 36.5 L 41.0-53.0 % Mean Corpuscular Volume 87.3 80.0-100.0 fL Mean Corpuscular Hemoglobin 28.6 28.0-32.0 pg Mean Corpuscular Hemoglobin Concent 32.8 32.0-36.0 g/dL Red Cell Distribution Width 21.6 H 11.8-14.3 % Platelet Count 193 140-450 10^3/uL Mean Platelet Volume 8.4 6.9-10.8 fL Neutrophils (%) (Auto) 93.7 H 37.0-80.0 % Lymphocytes (%) (Auto) 1.5 L 10.0-50.0 % Monocytes (%) (Auto) 3.9 0.0-12.0 % Eosinophils (%) (Auto) 0.0 0.0-7.0 % Basophils (%) (Auto) 0.9 0.0-2.0 % Neutrophils # (Auto) 8.6 1.6-8.6 10 ^3/uL Lymphocytes # (Auto) 0.1 L 0.4-5.4 10 ^3/uL Monocytes # (Auto) 0.4 0-1.3 10 ^3/uL Eosinophils # (Auto) 0 0-0.8 10 ^3/uL Basophils # (Auto) 0.1 0-0.2 10 ^3/uL Nucleated Red Blood Cells 0.1 % Sodium Level 140 136-145 mmol/L Potassium Level 4.8 3.5-5.1 mmol/L Chloride Level 98 98-107 mmol/L Carbon Dioxide Level 15 L 20-31 mmol/L Anion Gap 27 H 5-15 Blood Urea Nitrogen 141 *H 9-23 mg/dL Creatinine 11.21 *H 0.700-1.30 mg/dL Glomerular Filtration Rate Calc 4 >90 mL/min BUN/Creatinine Ratio 12.6 10.0-20.0 Serum Glucose 67 L 74-106 mg/dL Lactic Acid Level 1.7 0.4-2.0 mmol/L Calcium Level 8.5 L 8.7-10.4 mg/dL Total Bilirubin 0.5 0.2-1.0 mg/dL Aspartate Amino Transferase (AST) 44 H 13-40 U/L Alanine Aminotransferase (ALT) 30 7-40 U/L Alkaline Phosphatase 87 46-116 U/L B-Type Natriuretic Peptide > 5000.00 0-100 pg/mL Total Protein 6.0 5.7-8.2 g/dL Albumin 3.4 3.2-4.8 g/dL Plan discussed with: RIKA Conn MD Sep 12, 2025 11:49
--- NOTE | 2025-09-12 12:17 | RESUS ---
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 CPR initiated by bedside nurse. MARA CRISTINA paged on overhead system Initial Information Date: Sep 12, 2025 Time: 10:50 Location of Arrest: ICU ([place]) Arrest Witnessed: Yes CPR started by whom: Hospital Staff Pre-Hospital Care: ACLS Type of arrest: Cardiac Spontaneous Respirations: No Pulse Present: No Monitoring: Pulse Oximetry, Capnography, Telemetry Crash Cart Opened and Supplies: Yes Airway Ventilation Breathing at Onset: Assisted Oxygen Delivery Method: Ambu-Bag Artificial Ventilation: Bag/Endo tube Comments: intubated prior to code Circulation Circulation #1: Time: 10:52 Circulation Comment: PEA Circulation #2: Time: 10:55 Circulation Comment: PEA Circulation #3: Time: 10:58 Circulation Comment: PEA Circulation #4: Time: 11:00 Circulation Comment: PEA Circulation #5: Time: 11:02 Circulation Comment: PEA Circulation #6: Time: 11:05 Circulation Comment: ASYSTOLE Circulation #7: Time: 11:07 Circulation Comment: ASYSTOLE Circulation #8: Time: 11:10 Circulation Comment: ASYSTOLE Circulation #9: Time: 11:12 Temperature (Fahrenheit): 98.2 Circulation Comment: TOD/ ASYSTOLE Medications & Response Medications and Responses #1: Medication Time: 10:53 ADULT Medications Given ADULT: Epinephrine 1 mg Route of Administration: IV Medications and Responses #2: Medication Time: 10:54 ADULT Medications Given ADULT: D50 (amp) Route of Administration: IV Comment ACCU CHECK 62/ RECHECK 137 Medications and Responses #3: Medication Time: 10:58 ADULT Medications Given ADULT: Epinephrine 1 mg Route of Administration: IV Medications and Responses #4: Medication Time: 11:03 ADULT Medications Given ADULT: Epinephrine 1 mg Medications and Responses #5: Medication Time: 11:06 ADULT Medications Given ADULT: 2 Amps Na Bicarb Route of Administration: IV Medications and Responses #6: Medication Time: 11:08 ADULT Medications Given ADULT: Epinephrine 1 mg Route of Administration: IV Pacing Comments: calcium glucanate 1g administered per Dr Saeed verbal order x 3 1102 1105 1107 Procedure - Central Venous Cat Comment: establised prior to code Procedure - Gu Catheter Comment: established prior to code Nurses Notes [place] Coma Scale Eye Opening: None (1) Ela Coma Scale Verbal: None (1) Ela Coma Scale Motor: None (1) Glascow Total: 3 Pupil Reaction: Non Reactive (Unequal; R 4mm, L 2mm) Bedside Blood Glucose: 137 Time Code Ended Time Code Ended: 11:11 Post Arrest Status: Outcome of code: Unsuccessful Patient pronounced by: Dr Leroy Time patient pronounced: 11:12 Family notified: Yes Attending called: Yes Code Team Present: Dr Mariaa Salazar (charted code) TECH Avani RT Blaise Leyva RN Dory REGAN Pari Post Resuscitation Neurologica Pupil Size: 5 Pari Lu Sep 12, 2025 12:17
[2025-09-12] MEDS ORDERED: CALCIUM CHLOR(10%) 100MG/ML 10ML SYRINGE IV ONE (13:32)
[2025-09-12] MEDS ORDERED: SODIUM BICARB 8.4% 50Meq/50ml SYR INJ IV ONE (13:32)
[2025-09-12] MEDS ORDERED: EPINEPHrine HCL 1 MG/10 ML SYRG IV ONE (13:32)
[2025-09-12] MEDS ORDERED: DEXTROSE (50%) 50ML SYRG IV ONE (13:32)
--- NOTE | 2025-09-12 14:23 | DVHINCON2 ---
Date of service: Sep 12, [address] Leroy Reason for Consultation Acute respiratory failure History of Present Illness History Source: Patient, RN Notes, MD Notes Exam Limitations: Clinical condition HPI Patient is a 70-year old gentleman with a history of ESRD on HD with poor compliance, congestive heart failure, PA , COPD and recent admission to [facility] where he left AMA who presented with shortness of breath after missing dialysis x2. Was seen in the emergency room where he was intubated and placed on mechanical ventilation, initial settings RR 23, tidal volume 500, PEEP 5, FiO2 100%. Chest x-ray shows pulmonary edema and airspace disease, pulmonology was consulted to assist in management. Home Meds Active Scripts Isosorbide Mononitrate (Isosorbide Mononitrate Er) 30 Mg Tab, 1 TAB PO DAILY, #30 TAB 5 Refills Prov:KILO LEROY MD 07/27/25 Hydrocodone-Acetaminophen (Hydrocodone Bitartrate/AC 10-325 mg) 1 Tab Tab, 1 TAB PO Q6HP PRN, #30 TAB Prov:KILO LEROY MD 07/27/25 Minoxidil (Loniten) 2.5 Mg Tb, 2 TAB PO BID for 30 Days, #120 TAB 5 Refills Prov:KILO LEROY MD 07/27/25 Tamsulosin Hcl (Flomax) 0.4 Mg Cap, 0.4 MG PO QPM for 30 Days, #30 CAP 5 Refills Prov:KILO LEROY MD 07/27/25 Methylprednisolone (Medrol Dosepak) 4 Mg Manish, 4 MG PO UD, #21 TAB UAD Prov:KILO LEROY MD 07/27/25 Nifedipine (Nifedipine Er) 90 Mg Tab, 1 TAB PO DAILY, #30 TAB 5 Refills Prov:KILO LEROY MD 07/27/25 Carvedilol (Coreg) 25 Mg Tab, 1 TAB PO BID, #60 TAB 5 Refills Prov:KILO LEROY MD 07/27/25 Atorvastatin Calcium (ATORVASTATIN CALCIUM) 40 Mg Tab, 40 MG PO DAILY for 30 Days, #30 TAB 0 Refills Prov:RANJAN SZYMANSKI RESIDENT 11/10/24 Reported Medications Furosemide (Furosemide) 40 Mg Tab, 1 TAB PO DAILY for 90 Days, #90 07/15/25 Sertraline Hcl (Sertraline Hcl) 25 Mg Tab, 1 TAB PO QAM for 60 Days, #60 07/15/25 Nifedipine (Nifedipine Er) 90 Mg Tab, 1 TAB PO DAILY for 90 Days, #90 07/15/25 Sevelamer Carbonate (Renvela) 800 Mg Tab, 2 TAB PO TIDWM for 90 Days, #540 10/27/24 Alprazolam (Alprazolam) 1 Mg Tab, 1 TAB PO DAILYPRN PRN for ANXIETY for 30 Days, #30 10/27/24 Tamsulosin Hcl (Tamsulosin Hcl) 0.4 Mg Cap, 1 CAP PO DAILY 01/14/24 Past Medical History Cardiac: CHF, PA Pulmonary: COPD Central Nervous System: No pertinent Hx GI: No pertinent Hx Hemotology/Oncology: No pertinent Hx Hepatobiliary: No pertinent Hx Psychiatric: No pertinent Hx Musculoskeletal: No pertinent Hx Rheumotologic: No pertinent Hx Infectious Disease: No peritnent Hx ENT: No pertinent Hx Renal/: ESRD HD/PD Endocrine: No pertinent Hx Dermatology: No pertinent Hx Past Surgical History: No pertinent Hx Family History: DM Patient Family History: Arthritis G8 MOTHER Cardiovascular disease G8 FATHER Diabetes during Diabetes mellitus G8 MOTHER G8 FATHER Smoker: No Hx (Negative) Alocohol: None Drugs: None Lives with: With family Domestic Violence: Neg Review of Systems Comments unable to obtain- patient intubated and sedated H&P Exam Vital Signs Vital Signs Date Time Temp Pulse Resp B/P (MAP) Pulse Ox O2 Delivery O2 Flow Rate FiO2 09/12/25 12:17 208.8 Ambu-Bag 09/12/25 11:15 18 09/12/25 11:00 143 100 09/12/25 10:30 100/49 (66) 09/12/25 10:15 100 09/11/25 21:16 50 General Appeara: Well developed, Well nourished, Normal Appearance Head Exam: Normal inspection Neck Exam: Normal inspection, Non-tender, Normal alignment Eye Exam: bilateral eye Normal inspection, bilateral eye PERRL, bilateral eye EOMI Ear Exam: bilateral ear Auricle normal, bilateral ear Canal normal, bilateral ear TM normal Nasal Exam: Normal inspection Mouth: Normal Inspection Pulmonary/Respiratory: Respiratory distress Cardiovascular/Chest: Normal inspection Peripheral Pulses: 4+ Radial (R), 4+ Radial (L), 4+ Brachial (R), 4+ Brachial (L) Abdominal Exam: Normal bowel sounds Labs/Xrays Labs Test 09/12/25 11:08 09/12/25 10:40 09/12/25 07:08 09/12/25 03:53 Range/Units POC Glucose 137 H 70-106 mg/dl Sodium Level 141 136-145 mmol/L Potassium Level 7.8 *H 3.5-5.1 mmol/L Chloride Level 94 L 98-107 mmol/L Carbon Dioxide Level 14 L 20-31 mmol/L Anion Gap 33 H 5-15 Blood Urea Nitrogen 143 *H 9-23 mg/dL Creatinine 12.10 *H 0.700-1.30 mg/dL Glomerular Filtration Rate Calc 4 >90 mL/min BUN/Creatinine Ratio 11.8 10.0-20.0 Serum Glucose 86 # 74-106 mg/dL Calcium Level 8.6 L 8.7-10.4 mg/dL Total Bilirubin 0.6 0.2-1.0 mg/dL Aspartate Amino Transferase (AST) 351 H 13-40 U/L Alanine Aminotransferase (ALT) 152 H 7-40 U/L Alkaline Phosphatase 92 46-116 U/L Total Protein 4.9 L 5.7-8.2 g/dL Albumin 2.6 L 3.2-4.8 g/dL Blood Gas Specimen Type Arterial Blood Gas Sample Site Left radial Blood Gas Patient Temperature 37.0 Arterial Blood Date Drawn [id number] Arterial Blood pH 7.009 *L 7.350-7.450 Arterial Blood Partial Pressure CO2 48.9 H 35.0-48.0 mmHg Arterial Blood Partial Pressure O2 103.9 83.0-108.0 mmHg Arterial Blood HCO3 12.0 L 21.0-28.0 mmol/L Arterial Blood Oxygen Saturation 93.7 L 94.0-98.0 % Arterial Blood Base Excess -18.8 L -2.0-3.0 mmol/L Arterial Blood Oxyhemoglobin 92.7 L 94.0-98.0 % Arterial Blood Carboxyhemoglobin 0.9 0.5-1.5 % Arterial Blood Methemoglobin 0.2 0.0-1.5 % Arterial Blood Deoxyhemoglobin 6.2 H 0.0-5.0 % Daniel Test Modified Blood Gas Total Hemoglobin 12.60 L 13.5-17.5 g/dL Blood Gas Set Respiration Rate 22.0 Blood Gas Modality Vent - ac FiO2 % 100.0 Blood Gas Tidal Volume 500.0 Blood Gas PEEP or CPAP 5.0 Blood Gas Critical Value Read Back yes Blood Gas Notified Whom web programmer chelsea Blood Gas Notified Time [id number] Blood Gas Notified By sprayer operator kalie White Blood Count 4.4 # 4.4-10.8 10^3/uL Red Blood Count 3.68 L 4.5-5.90 10^6/uL Hemoglobin 10.7 L 13.5-17.5 g/dL Hematocrit 33.5 L 41.0-53.0 % Mean Corpuscular Volume 91.1 # 80.0-100.0 fL Mean Corpuscular Hemoglobin 29.0 28.0-32.0 pg Mean Corpuscular Hemoglobin Concent 31.8 L 32.0-36.0 g/dL Red Cell Distribution Width 21.9 H 11.8-14.3 % Platelet Count 178 140-450 10^3/uL Mean Platelet Volume 9.3 6.9-10.8 fL Neutrophils (%) (Auto) 37.0-80.0 % Lymphocytes (%) (Auto) 10.0-50.0 % Monocytes (%) (Auto) 0.0-12.0 % Basophils (%) (Auto) 0.0-2.0 % Neutrophils # (Auto) 1.6-8.6 10 ^3/uL Lymphocytes # (Auto) 0.4-5.4 10 ^3/uL Monocytes # (Auto) 0-1.3 10 ^3/uL Differential Total Cells Counted 100.0 100 Neutrophils % (Manual) 32.0 L 37.0-80.0 Band Neutrophils % (Manual) 21.0 Lymphocytes % (Manual) 42.0 10.0-50.0 Monocytes % (Manual) 3.0 0-12 Eosinophils % (Manual) 0 0-7 Basophils % (Manual) 0 0.0-2.0 Metamyelocytes % (manual) 0 Myelocytes % (Manual) 2.0 Promyelocytes % (Manual) 0 Blast Cells % (Manual) 0 Reactive Lymphocytes 0 Platelet Estimate Adequate Polychromasia Slight Macrocytosis Moderate Phosphorus Level 17.2 H 2.4-5.1 mg/dL Magnesium Level 3.6 H 1.6-2.6 mg/dL Test 09/11/25 23:36 09/11/25 22:08 09/11/25 20:40 Range/Units Troponin I High Sensitivity 201 *H </=54 ng/L Blood Gas EPAP 6 Blood Gas IPAP 12 Eosinophils (%) (Auto) 0.0 0.0-7.0 % Eosinophils # (Auto) 0 0-0.8 10 ^3/uL Basophils # (Auto) 0.1 0-0.2 10 ^3/uL Nucleated Red Blood Cells 0.1 % Lactic Acid Level 1.7 0.4-2.0 mmol/L B-Type Natriuretic Peptide > 5000.00 0-100 pg/mL Assessment/Plan 2' Diagnosis/Co-morbidities Impression Acute hypoxemic respiratory failure S/p cardiac arrest ESRD on HD Hyperkalemia Patient seen and examined in ICU Events Patient was intubated and placed on mechanical ventilation Initial settings RR 22, tidal volume 500, PEEP 5, FiO2 100% ABG reviewed- progressively worsening metabolic acidosis, 2 amps sodium bicarb given Chest x-ray shows pulmonary edema and airspace disease Patient hyperkalemic, potassium 7.8- received calcium gluconate, insulin and dex trose Hemodialysis was attempted however fistula appeared to be malfunctioning Patient continued to decline and developed cardiac arrest requiring CPR per ACLS protocols However life saving measures [place] [address] [address] he rest in peace Plan discussed with: Other (Rn) ALAINA JENKINS MD Sep 12, 2025 14:23
[2025-09-12] MEDS ORDERED: ATORVASTATIN 20 MG TAB PO SCH (22:00)
--- NOTE | 2025-09-13 14:54 | ECG ---
[facility] Test Date: 2025-09-11 Test Time: 19:56:55 Pat Name: MELISSA MATHEWS Department: [facility] ED Room: [address] [place] [address] Gender: M Net Mender: stevie : 1955 Requested By: JOHN PAUL MALDONADO Order Number: [id number] Reading MD: Gustavo Karimi Measurements Intervals [place] Rate: 81 P: 56 OK: 176 QRS: -40 QRSD: 109 T: 107 QT: 399 QTc: 464 Interpretive Statements Sinus rhythm LVH with secondary repolarization abnormality Electronically Signed On 09-15-2025 17:42:09 PST by Gustavo Karimi Please click the below link to view image of tracing.
--- NOTE | 2025-09-13 14:55 | ECG ---
[facility] Test Date: 2025-09-11 Test Time: 22:33:53 Pat Name: MELISSA MATHEWS Department: Room: [address] [place] [address] A Gender: M Ship Washer: RUBA : 1955 Requested By: JOHN PAUL MALDONADO Order Number: [id number] Reading MD: Gustavo Karimi Measurements Intervals [place] Rate: 129 P: 266 PA: 78 QRS: -16 QRSD: 108 T: 109 QT: 317 QTc: 465 Interpretive Statements Sinus or ectopic atrial tachycardia LVH with secondary repolarization abnormality Anterior infarct, old ST depr, consider ischemia, inferior leads Electronically Signed On 09-15-2025 17:43:08 PST by Gustavo Karimi Please click the below link to view image of tracing.
== END 2025-09-12 16:00 | DRG 208 ==
LOC: EDBD 19:54 → ER 19:54 → OVERFLOW 23:33 → ICU WEST 23:46
PROVIDERS: ADMIT Nurse Practitioner Family; ATTEND Nurse Practitioner Family
PROC: 5A09357 Assistance with Respiratory Ventilation, Less than 24 Consecutive Hours, Continuous Positive Airway Pressure (ICD-10-PCS; 2025-09-11)
PROC: 5A1D70Z Performance of Urinary Filtration, Intermittent, Less than 6 Hours Per Day (ICD-10-PCS; principal; 2025-09-12)
PROC: 5A1935Z Respiratory Ventilation, Less than 24 Consecutive Hours (ICD-10-PCS; 2025-09-12)
PROC: 5A12012 Performance of Cardiac Output, Single, Manual (ICD-10-PCS; 2025-09-12)
PROC: 0BH17EZ Insertion of Endotracheal Airway into Trachea, Via Natural or Artificial Opening (ICD-10-PCS; 2025-09-12)
PROC: 06HY33Z Insertion of Infusion Device into Lower Vein, Percutaneous Approach (ICD-10-PCS; 2025-09-12)
DX: J96.21 Acute and chronic respiratory failure with hypoxia (principal); N18.6 End stage renal disease; I46.9 Cardiac arrest, cause unspecified; I13.2 Hypertensive heart and chronic kidney disease with heart failure and with stage 5 chronic kidney disease, or end stage renal disease; E87.4 Mixed disorder of acid-base balance; Z99.2 Dependence on renal dialysis; J44.1 Chronic obstructive pulmonary disease with (acute) exacerbation; F41.9 Anxiety disorder, unspecified; E16.2 Hypoglycemia, unspecified; E87.5 Hyperkalemia; Z79.899 Other long term (current) drug therapy; Z82.49 Family history of ischemic heart disease and other diseases of the circulatory system; Z83.3 Family history of diabetes mellitus; Z86.73 Personal history of transient ischemic attack (TIA), and cerebral infarction without residual deficits; Z91.199 Patient's noncompliance with other medical treatment and regimen due to unspecified reason
CPT/HCPCS: 31500; 36415; 36600; 71045; 80053; 82805; 82962; 83605; 83735; 83880; 84100; 84484; 85007; 85025; 85027; 87070; 87077; 87081; 87186; 87205; 90935; 92950; 93005; 94002; 94003; 94640; 94660; 99291; 99292; G0378; J1815; J3490